=== PATIENT | male | born 1960 | race Caucasian/White ===

== ENCOUNTER → 2016-11-22 | Outpatient (CLI) | payer OTHER ==
[~2016-11-22] MED LIST: ACYC400T PO; ADVIN25/60 INH; ALBU18002 INH; ALBU1AER9 INH; APR25 PO; ASPI81TA28 PO; ATV/1 PO; B-COCAP20 PO; B-COCAP28 PO; B-COTAB18 PO; CALC667C4 PO; CARV25TA2 PO; CARV3.122 PO; CARV6.252 PO; CIPR1TAB11 PO; CLOP1TAB15 PO; CPR500 PO; CRG3125 PO; CRG625 PO; DOCU100T7 PO; FRS/40 PO; FURO-85 PO; GABA-113 PO; GLGKIT INJ; GUAISYP5 PO; INSPMPNVLG; ISOS120T5 PO; LACT10SO17 PO; LSX40 PO; MCRK20 PO; METR-163 PO; MULT-650 PO; NTRGSL/4 UT; NVLGI; ONDA4TAB46 PO; OXYC-57 PO; PANT40TA2 PO; PHS667 PO; PLV75 PO; POLY335019 PO; POTA20TA13 PO; ROPI1TAB PO; ROSU20TA PO; RQP/2 PO; SNG10 PO; TRAZ50TA35 PO; XPNINS125 NEB; ZLF/50 PO
--- NOTE | 2016-11-22 13:42 | DIAGNOSTIC IMAGING REPORT ---
RIGHT SHOULDER MIN 2 VIEWS ROUTINE CLINICAL HISTORY: Right shoulder pain. COMPARISON: None FINDINGS: Alignment of the right shoulder is anatomic. Deformity of the distal right clavicle with osteophytosis is unchanged. No acute fracture is identified on this exam. There is mild arthritis of the right glenohumeral joint. There are median sternotomy wires. IMPRESSION: 1. No acute fracture or dislocation of the right shoulder. 2. Chronic deformity of the distal right clavicle which could be post surgical, post traumatic or degenerative. 3. Mild arthritis of the right glenohumeral joint. Electronically signed by: Carmine Raymond M.D. 11/22/2016 1:41 PM Dictated Date/Time: 11/22/2016 1:39 PM
== END | disposition home or self-care (01) ==
LOC: C.RAD1850 12:46
PROVIDERS: ATTEND Family Medicine
DX: M25.511 Pain in right shoulder (principal); M95.8 Other specified acquired deformities of musculoskeletal system

== ENCOUNTER 2017-01-11 02:49 | Inpatient (IN) | payer OTHER ==
[2017-01-11] VITALS (7 sets, daily range): BP systolic 132–171; BP diastolic 52–71; PULSE 59–64; TEMP 36.9–37.2; O2SAT 94–96; Ht 162.6 cm; Wt 80.0 kg
[~2017-01-11] VITALS: Ht 162.6 cm; Wt 80.0 kg
[~2017-01-11 02:49] MED LIST changes: -ALBU18002 INH; -B-COCAP20 PO; -B-COTAB18 PO; -CALC667C4 PO; -CARV3.122 PO; -CARV6.252 PO; -CIPR1TAB11 PO; -CLOP1TAB15 PO; -CRG3125 PO; -CRG625 PO; -FRS/40 PO; -FURO-85 PO; -GABA-113 PO; -INSPMPNVLG; -LACT10SO17 PO; -MCRK20 PO; -METR-163 PO; -MULT-650 PO; -ONDA4TAB46 PO; -PHS667 PO; -POLY335019 PO; -ROPI1TAB PO; -ROSU20TA PO; -TRAZ50TA35 PO
[2017-01-11] MEDS ORDERED: ONDANSETRON INJ 2 MG/ML 2 ML VIAL IV STA (03:18)
[2017-01-11] MEDS ORDERED: SODIUM CHLORIDE 0.9% 500ML 500 ML IV STA (03:18)
[2017-01-11] MEDS ORDERED: HYDROmorphone INJ 1 MG/ML SYR IV STA ×2 (03:18→06:12)
[2017-01-11 03:30] LABS: BASO % 0.4 %; BASO ABS # 0.04 K/uL (0-0.2); COMPLETE YES; EOS % 2.1 %; HEMATOCRIT 44.4 % (42-52); IG% 0.3 %; LYMPH % 13.5 %; LYMPH ABS # 1.48 K/uL (1.2-3.4); MEAN CELL VOLUME 83.1 fL (80-100); MEAN CORPUSCULAR HEMOGLOBIN 28.5 pg (25-34); MEAN CORPUSCULAR HGB CONC 34.2 g/dl (32-36); MEAN PLATELET VOLUME 11.1 fL (7.4-10.4); MONO % 6.8 %; NEUT % 76.9 %; PLATELET COUNT 302 K/uL (130-400); RED BLOOD COUNT 5.34 M/uL (4.7-6.1); WHITE BLOOD COUNT 10.94 K/uL (4.8-10.8)
[2017-01-11 03:55] LABS: ALT/SGPT 50 U/L (12-78); AST/SGOT 25 U/L (15-37); BLOOD UREA NITROGEN 37 mg/dl (7-18); BUN/CREATININE RATIO 16.6 (10-20); CALCIUM 8.7 mg/dl (8.5-10.1); CARBON DIOXIDE 29 mmol/L (21-32); CHLORIDE 104 mmol/L (98-107); GLUCOSE 133 mg/dl (70-99); POTASSIUM 3.4 mmol/L (3.5-5.1); SODIUM 142 mmol/L (136-145)
[2017-01-11] MEDS ORDERED: ALBU18002 INH (03:55)
[2017-01-11] MEDS ORDERED: LACT10SO17 PO (03:55)
[2017-01-11] MEDS ORDERED: ONDA4TAB46 PO (03:55)
[2017-01-11] MEDS ORDERED: ROSU20TA PO (03:55)
[2017-01-11] MEDS ORDERED: POLY335019 PO (03:55)
[2017-01-11] MEDS ORDERED: ROPI1TAB PO ×2 (03:55)
[2017-01-11] MEDS ORDERED: MULT-650 PO (03:55)
[2017-01-11] MEDS ORDERED: FURO-85 PO (03:55)
[2017-01-11] MEDS ORDERED: INSPMPNVLG (03:55)
[2017-01-11] MEDS ORDERED: TRAZ50TA35 PO (03:55)
[2017-01-11 04:00] LABS: ALKALINE PHOSPHATASE 158 U/L (45-117)
[2017-01-11 05:08] LABS: URINE APPEARANCE CLEAR (CLEAR); URINE BILIRUBIN NEG (NEG); URINE COLOR YELLOW; URINE EPITHELIAL CELL AUTO 0-5 /lpf (0-5); URINE NITRITE NEG (NEG); URINE SPECIFIC GRAVITY 1.018 (1.000-1.030); UROBILINOGEN NEG (NEG); ZZUR CULT IF INDIC CLEAN CATCH NO
[2017-01-11 05:09] LABS: MANUAL MICROSCOPIC REQUIRED? NO; REVIEW REQ? NO
[2017-01-11] MEDS ORDERED: LORAZEPAM 2 MG/ML 1 ML VIAL IV STA (05:09)
[2017-01-11] MEDS ORDERED: NovoLOG INSULIN PUMP SCH (06:00)
[2017-01-11] MEDS ORDERED: HydrALAZINE HCL 20 MG/ML VIAL IV. PRN (06:00)
[2017-01-11] MEDS ORDERED: HYDROmorphone INJ 1 MG/ML SYR IV PRN (06:00)
[2017-01-11] MEDS ORDERED: LORAZEPAM 2 MG/ML 1 ML VIAL IV PRN (06:00)
[2017-01-11] MEDS ORDERED: LEVALBUTEROL 1.25MG/3ML NEB INH PRN (06:00)
--- NOTE | 2017-01-11 06:06 | EMERGENCY ROOM VISIT NOTE ---
History Report prepared by Rameshibflorentin: Priyank Gaspar Under the Supervision of: Dr. Vick San M.D. First contact with patient: 03:09 Chief Complaint: CHEST PAIN Stated Complaint: STOMACH PAINS, THROWING UP History of Present Illness The patient is a 56 year old male who presents to the Emergency Room with complaints of improving abdominal pain beginning 3 hours ago. He woke up with his pain. He also complains of chest pain and vomiting. Per nursing staff, the patient's pain began in his abdomen and moved up into his chest. The patient states that he felt very nauseous prior to falling asleep. He states that vomiting improved his pain. He describes his abdominal pain as a feeling of "soreness", and currently has no chest pain. The patient has a history of multiple heart attacks, but states that his chest pain tonight felt very different. He is on Plavix. He has a history of a cholecystectomy, appendectomy , and a hernia repair. The patient had a double bypass surgery 11 years ago. He is on peritoneal dialysis. The patient denies any urinary symptoms, or diarrhea. Source of History: patient Onset: 3 hours ago Position: abdomen Quality: other ("Soreness") Timing: other (improving) Associated Symptoms: + chest pain, + nausea, + vomiting, No diarrhea, No urinary symptoms Review of Systems See HPI for pertinent positives & negatives. A total of 10 systems reviewed and were otherwise negative. Past Medical & Surgical Medical Problems: (1) Acute renal failure syndrome (2) Asthma (3) Benign hypertension (4) Cholecystectomy (5) Chronic obstructive lung disease (6) Coronary artery bypass grafting (7) Diabetes mellitus (8) End stage renal failure on dialysis (9) Heart disease (10) Hepatitis (11) Intermitent atrial fibrillation (12) Myocardial infarction (13) Obstructive sleep apnea syndrome (14) Peritoneal dialysis status (15) Peritonitis associated with peritoneal dialysis (16) Pneumonia (17) Secondary hyperparathyroidism of renal origin Family History Hypertension Kidney disease Social History Smoking Status: Never Smoker Alcohol Use: none Drug Use: none Marital Status: Housing Status: lives with family Occupation Status: disabled Current/Historical Medications Scheduled Acyclovir (Acyclovir), 400 MG PO BID Albuterol Sulfate (Proair Respiclick), 2 PUFFS INH QAM Aspirin (Aspirin Ec), 81 MG PO QPM Carvedilol (Coreg), 25 MG PO AMPM Clopidogrel Bisulfate (Clopidogrel), 75 MG PO QAM Fluticasone Prop/Salmeterol (Advair Diskus 250/50 60 Dose), 1 PUFF INH Q12 Furosemide (Lasix), 20 MG PO QAM Hydralazine Hcl (Apresoline), 25 MG PO TID Insulin Aspart (novoLOG INSULIN PUMP ), 1 EA N/A UD Isosorbide Mononitrate Ext Rel (Imdur Ext Rel), 120 MG PO QAM Montelukast Sod (Montelukast Sodium), 10 MG PO QPM Multiple Vitamins W/ Minerals (Prorenal Qd), 1 CAP PO QAM Oxycodone/Acetaminophen 5MG/325MG (Percocet 5MG/325MG), 1 TABLET PO HS Pantoprazole (Pantoprazole Sodium), 40 MG PO QAM Polyethylene Glycol 3350 (Miralax), 17 GM PO QAM Ropinirole (Requip), 2 MG PO QPM Ropinirole Hydrochloride (Requip), 1 MG PO QAM Rosuvastatin Calcium (Crestor), 20 MG PO DAILY Sertraline HCl (Sertraline HCl), 50 MG PO QPM Scheduled PRN Glucagon (Glucagon Emergency Kit), 1 DOSE INJ UD PRN for HYPOGLYCEMIA Guaifenesin-Codeine (Robitussin-Ac Syrup), 10 ML PO QID PRN for Cough and Congestion Lactulose (Chronulac), 1 DOSE PO DIRECTED PRN for Constipation Levalbuterol (Levalbuterol HCl), 1 VIAL NEB TID PRN for COPD Lorazepam (Ativan), 0.5-1 MG PO BID PRN for Anxiety Nitroglycerin (Nitrostat), 0.4 MG UT UD PRN for Chest Pain Ondansetron Hcl (Zofran), 4 MG PO Q6H PRN for Nausea Trazodone Hcl (Trazodone), 50 MG PO HS PRN for Sleep Allergies Coded Allergies: Penicillins (Verified Allergy, Severe, HIVES, 01/11/17) BEE STING (Verified Allergy, Intermediate, SWELLING, 01/11/17) DOES NOT REQUIRE EPIPEN PER FAMILY Physical Exam Vital Signs Date Time Temp Pulse Resp B/P Pulse Ox O2 Delivery O2 Flow Rate FiO2 01/11/17 04:56 36.9 57 20 162/69 96 Room Air 01/11/17 03:47 68 16 171/82 98 Room Air 01/11/17 03:13 58 01/11/17 03:12 64 20 202/82 100 Room Air Physical Exam GENERAL: Patient is chronically un-well appearing and moderate distress. HEENT: No acute trauma, normocephalic atraumatic, mucous membranes moist, no nasal congestion, no scleral icterus. NECK: No stridor, no adenopathy, no meningismus, trachea is midline. LUNGS: No dyspnea. Clear to auscultation and equal bilaterally. No wheeze, no rhonchi. HEART: Regular rate and rhythm. No murmurs, rubs, gallops appreciated. ABDOMEN: Ventral hernia just to right of lower midline incision scar. Firm though minimal TTP. Vague epigastric tenderness to palpation. Hyperactive epigastric bowel sounds otherwise minimal. Rest of abdomen soft, no peritonitis. BACK: No midline tenderness, no CVA tenderness EXTREMITIES: Normal motion all extremities, no cyanosis, no edema. NEUROLOGIC: Alert and oriented, no acute motor or sensory deficits, no focal weakness, cranial nerves grossly intact. SKIN: No rash, no jaundice, no diaphoresis. Dialysis fistula in the left forearm. Extensive scarring over the abdomen and chest from previous surgeries. Medical Decision & Procedures ER Provider Diagnostic Interpretation: CT results per statrad and my review. CT ABDOMEN & PELVIS: Prior from 05/28/16. Small ventral hernia below the level of the umbilicus containing a dilated fluid-filled small bowel loop which results in proximal obstruction. Distal loops are collapsed. Colonic diverticulosis. As on the prior , there is an intraperitoneal catheter with the distal part in the right lower quadrant. Likely dialysis catheter. Moderate fluid within the abdomen and pelvis. No free air. Small hiatal hernia. Cholecystectomy. Small nonobstructing renal calculi. Vascular calcifications of the aorta and branches. X ray results are stated below per my interpretation: Chest: 1 view: No infiltrate, no effusion, normal cardiac border. Mildly enlarged heart. Laboratory Results 01/11/17 03:15 Red Blood Count 5.34, Mean Corpuscular Volume 83.1, Mean Corpuscular Hemoglobin 28.5, Mean Corpuscular Hemoglobin Concent 34.2, Mean Platelet Volume 11.1, Neutrophils (%) (Auto) 76.9, Lymphocytes (%) (Auto) 13.5, Monocytes (%) (Auto) 6.8, Eosinophils (%) (Auto) 2.1, Basophils (%) (Auto) 0.4, Neutrophils # (Auto) 8.42, Lymphocytes # (Auto) 1.48, Monocytes # (Auto) 0.74, Eosinophils # (Auto) 0.23, Basophils # (Auto) 0.04 01/11/17 03:15 Test 01/11/17 03:15 01/11/17 04:55 White Blood Count 10.94 K/uL (4.8-10.8) Red Blood Count 5.34 M/uL (4.7-6.1) Hemoglobin 15.2 g/dL (14.0-18.0) Hematocrit 44.4 % (42-52) Mean Corpuscular Volume 83.1 fL (80-100) Mean Corpuscular Hemoglobin 28.5 pg (25-34) Mean Corpuscular Hemoglobin Concent 34.2 g/dl (32-36) Platelet Count 302 K/uL (130-400) Mean Platelet Volume 11.1 fL (7.4-10.4) Neutrophils (%) (Auto) 76.9 % Lymphocytes (%) (Auto) 13.5 % Monocytes (%) (Auto) 6.8 % Eosinophils (%) (Auto) 2.1 % Basophils (%) (Auto) 0.4 % Neutrophils # (Auto) 8.42 K/uL (1.4-6.5) Lymphocytes # (Auto) 1.48 K/uL (1.2-3.4) Monocytes # (Auto) 0.74 K/uL (0.11-0.59) Eosinophils # (Auto) 0.23 K/uL (0-0.5) Basophils # (Auto) 0.04 K/uL (0-0.2) RDW Standard Deviation 39.2 fL (36.4-46.3) RDW Coefficient of Variation 13.0 % (11.5-14.5) Immature Granulocyte % (Auto) 0.3 % Immature Granulocyte # (Auto) 0.03 K/uL (0.00-0.02) Anion Gap 9.0 mmol/L (3-11) Estimated GFR () 37.7 Estimated GFR (Non- 32.5 BUN/Creatinine Ratio 16.6 (10-20) Calcium Level 8.7 mg/dl (8.5-10.1) Total Bilirubin 0.5 mg/dl (0.2-1) Direct Bilirubin 0.1 mg/dl (0-0.2) Aspartate Amino Transf (AST/SGOT) 25 U/L (15-37) Alanine Aminotransferase (ALT/SGPT) 50 U/L (12-78) Alkaline Phosphatase 158 U/L (45-117) Troponin I 0.023 ng/ml (0-0.045) Total Protein 7.1 gm/dl (6.4-8.2) Albumin 3.7 gm/dl (3.4-5.0) Lipase 150 U/L (73-393) Urine Color YELLOW Urine Appearance CLEAR (CLEAR) Urine pH 5.0 (4.5-7.5) Urine Specific [place] 1.018 (1.000-1.030) Urine Protein 2+ (NEG) Urine Glucose (UA) 2+ (NEG) Urine Ketones NEG (NEG) Urine Occult Blood NEG (NEG) Urine Nitrite NEG (NEG) Urine Bilirubin NEG (NEG) Urine Urobilinogen NEG (NEG) Urine Leukocyte Esterase NEG (NEG) Urine WBC (Auto) 1-5 /hpf (0-5) Urine RBC (Auto) 0-4 /hpf (0-4) Urine Hyaline Casts (Auto) 1-5 /lpf (0-5) Urine Epithelial Cells (Auto) 0-5 /lpf (0-5) Urine Bacteria (Auto) NEG (NEG) Laboratory results as reviewed by me. Medications Administered Medications (Trade) Dose Ordered Sig/Shasha Route Start Time Stop Time Status Last Admin Dose Admin Hydromorphone HCl (Dilaudid Inj) 1 mg NOW STAT IV 01/11/17 03:18 01/11/17 03:21 DC 01/11/17 03:28 1 MG Ondansetron HCl 4 mg 4 mg NOW STAT IV 01/11/17 03:18 01/11/17 03:21 DC 01/11/17 03:28 4 MG Sodium Chloride (Nss 500ml) 500 ml @ 999 mls/hr Q31M STAT IV 01/11/17 03:18 01/11/17 03:48 DC 01/11/17 03:27 999 MLS/HR Lorazepam (Ativan Inj) 1 mg NOW STAT IV 01/11/17 05:09 01/11/17 05:11 DC 01/11/17 05:19 1 MG ECG Indication: chest pain Rate (beats per minute): 58 Rhythm: sinus bradycardia Findings: no acute ischemic change, no ectopy Comparison ECG Date: May 28, 2016 Change: no significant change ED Course 0313: The patient was evaluated in room A10. A complete history and physical exam was performed. 0318: Ordered Sodium Chloride 500 ml @ 999 mls/hr, Zofran Inj 4 mg IV, Dilaudid Inj 1 mg IV. 0400: I reassessed the patient. He states that the pain medication has helped, but he still feels somewhat nauseous. He notes that his pain is present in waves. 0509: I checked in on the patient. He feels better, and is not in significant pain. I attempted to reduce his hernia unsuccessfully. Ordered Ativan Inj 1 mg IV. 0545: Upon reevaluation, the patient is resting comfortably. Discussed results and treatment plan with the patient. He verbalized understanding and agreement with the treatment plan. The patient will be evaluated for further management. Medical Decision Differential: Cholecystitis, Gallbladder disfunction, Hepatic Disfunction, Gastritis/PUD, Pancreatitis, ACS, Aortic Pathology, dialysate infection, amongst other pathologies entertained. 56 yr old male with waves of nausea/vomiting and abdominal pain. Relieved on arrival with vomiting though pain started increasing. Noted CP right before he vomiting which was brief, unlike previous AL and resolved shortly there after. EKG wnl and trop OK initially. With symptoms sent for CT (w/o con given renal issues) which reveals bowel obstruction. Nausea returning but improved with ativan/ng tube. Unable to reduce ventral hernia. Exam is not consistent with ischemic bowel at this time. Labs no consistent with infection nor peritoneal dialysate infection. Will bring in for further work-up and evaluation. Consults Time Called: 05 Consulting Physician[facility] [place] Call: [phone] Discussed the patient's case. The patient will be evaluated for further treatment and disposition. Impression Primary Impression: SBO (small bowel obstruction) Additional Impression: Ventral hernia Scribe Attestation The scribe's documentation has been prepared under my direction and personally reviewed by me in its entirety. I confirm that the note above accurately reflects all work, treatment, procedures, and medical decision making performed by me. Departure Information Dispostion Being Evaluated By Hospitalist Referrals Arielle Whittaker MD (PCP) Patient Instructions My [facility] Problem Qualifiers Additional Impression: Ventral hernia Obstruction and gangrene presence: with obstruction but without gangrene Qualified Codes: K43.6 - Other and unspecified ventral hernia with obstruction , without gangrene
--- NOTE | 2017-01-11 06:12 | History and Physical ---
History & Physical Date & Time of Service: January 11, 2017 at 06:09 Chief Complaint: Stomach Pains, Throwing Up Primary Care Physician: Arielle Whittaker MD History of Present Illness Source: patient 56 y/o M Hx CAD, systolic CHF, ESRD - peritoneal dialysis w/history of peritonitis. Pt presents with acute onset of abdominal pain, nausea and vomiting. A CT abdomen was obtained in the ER revealing an SBO resulting from an incarcerated ventral hernia. The pt had also c/o CP although this was more epigastric in nature and likely related to his current obstruction. He was initially comfortable in the ER following administration of narcotics however after a few hours his pain returned and became more intense. He denies fever or SOB. He was in his normal state of health one day prior and completing his dialysis this AM when the pain began. Past Medical/Surgical History Medical Problems: (1) Acute renal failure syndrome Status: Resolved (2) Asthma Status: Chronic (3) Benign hypertension Status: Chronic (4) Cholecystectomy Status: Resolved (5) Chronic obstructive lung disease Status: Chronic (6) Coronary artery bypass grafting Status: Resolved (7) Diabetes mellitus Status: Chronic (8) End stage renal failure on dialysis Status: Chronic (9) Heart disease Status: Chronic (10) Myocardial infarction Status: Chronic (11) Obstructive sleep apnea syndrome Status: Chronic (12) Peritoneal dialysis status Status: Chronic (13) Pneumonia Status: Chronic 14) Peritonitis - required revision of dialysis entry point as a result Family History Hypertension Kidney disease Social History Smoking Status: Never Smoker Drug Use: none Marital Status: Housing status: lives with family Occupational Status: disabled Immunizations History of Influenza Vaccine: Yes Influenza Vaccine Date: May 10, 2012 History of Tetanus Vaccine?: Yes Tetanus Immunization Date: May 08, 2006 History of Pneumococcal: Yes Pneumococcal Date: May 10, 2006 History of Hepatitis B Vaccine: Yes Multi-Drug Resistant Organisms History of MDRO: No Allergies Coded Allergies: Penicillins (Verified Allergy, Severe, HIVES, 01/11/17) BEE STING (Verified Allergy, Intermediate, SWELLING, 01/11/17) DOES NOT REQUIRE EPIPEN PER FAMILY Home Medications Scheduled Acyclovir (Acyclovir), 400 MG PO BID Albuterol Sulfate (Proair Respiclick), 2 PUFFS INH QAM Aspirin (Aspirin Ec), 81 MG PO QPM Carvedilol (Coreg), 25 MG PO AMPM Clopidogrel Bisulfate (Clopidogrel), 75 MG PO QAM Fluticasone Prop/Salmeterol (Advair Diskus 250/50 60 Dose), 1 PUFF INH Q12 Furosemide (Lasix), 20 MG PO QAM Hydralazine Hcl (Apresoline), 25 MG PO TID Insulin Aspart (novoLOG INSULIN PUMP ), 1 EA N/A UD Isosorbide Mononitrate Ext Rel (Imdur Ext Rel), 120 MG PO QAM Montelukast Sod (Montelukast Sodium), 10 MG PO QPM Multiple Vitamins W/ Minerals (Prorenal Qd), 1 CAP PO QAM Oxycodone/Acetaminophen 5MG/325MG (Percocet 5MG/325MG), 1 TABLET PO HS Pantoprazole (Pantoprazole Sodium), 40 MG PO QAM Polyethylene Glycol 3350 (Miralax), 17 GM PO QAM Ropinirole (Requip), 2 MG PO QPM Ropinirole Hydrochloride (Requip), 1 MG PO QAM Rosuvastatin Calcium (Crestor), 20 MG PO DAILY Sertraline HCl (Sertraline HCl), 50 MG PO QPM Scheduled PRN Glucagon (Glucagon Emergency Kit), 1 DOSE INJ UD PRN for HYPOGLYCEMIA Guaifenesin-Codeine (Robitussin-Ac Syrup), 10 ML PO QID PRN for Cough and Congestion Lactulose (Chronulac), 1 DOSE PO DIRECTED PRN for Constipation Levalbuterol (Levalbuterol HCl), 1 VIAL NEB TID PRN for COPD Lorazepam (Ativan), 0.5-1 MG PO BID PRN for Anxiety Nitroglycerin (Nitrostat), 0.4 MG UT UD PRN for Chest Pain Ondansetron Hcl (Zofran), 4 MG PO Q6H PRN for Nausea Trazodone Hcl (Trazodone), 50 MG PO HS PRN for Sleep Physical Exam Vital Signs Date Time Temp Pulse Resp B/P Pulse Ox O2 Delivery O2 Flow Rate FiO2 01/11/17 04:56 36.9 57 20 162/69 96 Room Air 01/11/17 03:47 68 16 171/82 98 Room Air 01/11/17 03:13 58 01/11/17 03:12 64 20 202/82 100 Room Air General Appearance: WD/WN, + moderate distress Head: normocephalic, atraumatic Eyes: normal inspection, PERRL, EOMI ENT: normal ENT inspection, hearing grossly normal, pharynx normal Neck: supple, no JVD Respiratory/Chest: chest non-tender, lungs clear, normal breath sounds, no respiratory distress, no accessory muscle use Cardiovascular: regular rate, rhythm, no edema, no gallop, no JVD, no murmur, normal peripheral pulses Abdomen/GI: + tenderness, + abnormal bowel sounds, + distended, + guarding, + pertinent finding (Palpable cenral hernia - distended abdomen which is very tender to palpation) Back: normal inspection, normal range of motion Extremities/Musculoskelatal: normal inspection, no calf tenderness, normal capillary refill, no pedal edema, normal range of motion Neurologic/Psych: spray unit feeder II-XII nml as tested, no motor/sensory deficits, alert, normal mood/affect, normal reflexes, oriented x 3 Skin: normal color, warm/dry, no rash Diagnostics Laboratory Results Results Past 24 Hours Test 01/11/17 03:15 01/11/17 04:55 Range/Units White Blood Count 10.94 4.8-10.8 K/uL Red Blood Count 5.34 4.7-6.1 M/uL Hemoglobin 15.2 14.0-18.0 g/dL Hematocrit 44.4 42-52 % Mean Corpuscular Volume 83.1 80-100 fL Mean Corpuscular Hemoglobin 28.5 25-34 pg Mean Corpuscular Hemoglobin Concent 34.2 32-36 g/dl Platelet Count 302 130-400 K/uL Mean Platelet Volume 11.1 7.4-10.4 fL Neutrophils (%) (Auto) 76.9 % Lymphocytes (%) (Auto) 13.5 % Monocytes (%) (Auto) 6.8 % Eosinophils (%) (Auto) 2.1 % Basophils (%) (Auto) 0.4 % Neutrophils # (Auto) 8.42 1.4-6.5 K/uL Lymphocytes # (Auto) 1.48 1.2-3.4 K/uL Monocytes # (Auto) 0.74 0.11-0.59 K/uL Eosinophils # (Auto) 0.23 0-0.5 K/uL Basophils # (Auto) 0.04 0-0.2 K/uL RDW Standard Deviation 39.2 36.4-46.3 fL RDW Coefficient of Variation 13.0 11.5-14.5 % Immature Granulocyte % (Auto) 0.3 % Immature Granulocyte # (Auto) 0.03 0.00-0.02 K/uL Sodium Level 142 136-145 mmol/L Potassium Level 3.4 3.5-5.1 mmol/L Chloride Level 104 98-107 mmol/L Carbon Dioxide Level 29 21-32 mmol/L Anion Gap 9.0 3-11 mmol/L Blood Urea Nitrogen 37 7-18 mg/dl Creatinine 2.20 0.60-1.40 mg/dl Estimated GFR () 37.7 Estimated GFR (Non- 32.5 BUN/Creatinine Ratio 16.6 10-20 Random Glucose 133 70-99 mg/dl Calcium Level 8.7 8.5-10.1 mg/dl Total Bilirubin 0.5 0.2-1 mg/dl Direct Bilirubin 0.1 0-0.2 mg/dl Aspartate Amino Transf (AST/SGOT) 25 15-37 U/L Alanine Aminotransferase (ALT/SGPT) 50 12-78 U/L Alkaline Phosphatase 158 45-117 U/L Troponin I 0.023 0-0.045 ng/ml Total Protein 7.1 6.4-8.2 gm/dl Albumin 3.7 3.4-5.0 gm/dl Lipase 150 73-393 U/L Urine Color YELLOW Urine Appearance CLEAR CLEAR Urine pH 5.0 4.5-7.5 Urine Specific [place] 1.018 1.000-1.030 Urine Protein 2+ NEG Urine Glucose (UA) 2+ NEG Urine Ketones NEG NEG Urine Occult Blood NEG NEG Urine Nitrite NEG NEG Urine Bilirubin NEG NEG Urine Urobilinogen NEG NEG Urine Leukocyte Esterase NEG NEG Urine WBC (Auto) 1-5 0-5 /hpf Urine RBC (Auto) 0-4 0-4 /hpf Urine Hyaline Casts (Auto) 1-5 0-5 /lpf Urine Epithelial Cells (Auto) 0-5 0-5 /lpf Urine Bacteria (Auto) NEG NEG Diagnostic Radiology Small ventral hernia below the level of the umbilicus containing a dilated fluid-filled small bowel loop which results in proximal obstruction. EKG Sinus, IVCD, evidence of previous ant infarct - no significant change from previous Impression Assessment and Plan 56 y/o M Hx CAD, systolic CHF, ESRD - peritoneal dialysis w/history of peritonitis. Pt presents with acute onset of abdominal pain, nausea and vomiting. A CT abdomen was obtained in the ER revealing an SBO resulting from an incarcerated ventral hernia. The pt had also c/o CP although this was more epigastric in nature and likely related to his current obstruction. He was initially comfortable in the ER following administration of narcotics however after a few hours his pain returned and became more intense. He denies fever or SOB. He was in his normal state of health one day prior and completing his dialysis this AM when the pain began. 1) SBO - surgery consulted and notified in ER. NGT placed and pt assigned to telemetry - he is high risk for surgery and unless intervention is urgent we would consider a pre-op cardiology consult. Pts RCRI is 11%. 2) CAD - he did complain of CP although this appears to be more epigastric and related to his current SBO - serial troponins are ordered and he will be admitted to telemetry 3) ESRD - Pts vat packer is consulted for inpt dialysis - electrolytes are currently acceptable 4) CHF - pt is relatively euvolemic - has a low EF of 25% on record which was considered when calculating his RCRI - we will continue a B claudia in IV form while he is NPO 5) HTN - IV Hydralazine and Metoprolol ordered with parameters - Nitrodur daily ordered Full code - SCDs pending surgery evaluation Total time for this admit including review of labs, meds, EKG - discussion with pt and ER attending 43 min Level of Care Telemetry Resuscitation Status FULL RESUSCITATION VTE Prophylaxis Given or contraindicated: SCD's
[2017-01-11] MEDS ORDERED: INSULIN ASPART 100 UNITS/ML 3 ML PEN SC SCH (06:30)
[2017-01-11] MEDS ORDERED: ONDANSETRON INJ 2 MG/ML 2 ML VIAL IV PRN (06:30)
[2017-01-11 06:43] LABS: INR 0.9 (0.9-1.1); PARTIAL THROMBOPLASTIN RATIO 0.9; PROTHROMBIN TIME (PATIENT) 9.8 SECONDS (9.0-12.0)
--- NOTE | 2017-01-11 07:00 | DIAGNOSTIC IMAGING REPORT ---
CHEST ONE VIEW PORTABLE CLINICAL HISTORY: repetitive vomiting, epigastric pain COMPARISON STUDY: 2015 FINDINGS: Mild stable cardiomegaly. Prior median sternotomy. Diaphragms smooth. IMPRESSION: No acute process. Chronic and postoperative change. Electronically signed by: Jean Marie Rodgers M.D. 01/11/2017 6:59 AM Dictated Date/Time: 01/11/2017 6:58 AM
--- NOTE | 2017-01-11 07:51 | DIAGNOSTIC IMAGING REPORT ---
CT SCAN OF THE ABDOMEN AND PELVIS WITHOUT IV CONTRAST CLINICAL HISTORY: Vomiting. Epigastric abdominal pain. COMPARISON STUDY: Abdominal CT dated 05/28/2016. TECHNIQUE: CT scan of the abdomen and pelvis is performed from the lung bases to the proximal femora. Images are reviewed in the axial, sagittal, and coronal planes. IV contrast was not administered for this examination as per the referring clinician. Note that the examination was performed and significantly suboptimal fashion without oral and IV contrast. Automated dose control exposure was utilized. CT DOSE: 1068.92 mGy.cm FINDINGS: Lung bases: The patient is status post midline sternotomy. The heart is enlarged and without pericardial effusion. There are coronary artery calcifications. Diminished attenuation of the cardiac blood pool as compared to the myocardium suggesting anemia. A tiny hiatal hernia is noted. The lung bases are clear. Liver: The unenhanced liver is normal in size, contour, and attenuation. There is central intrahepatic biliary ductal dilatation. Gallbladder: Surgically absent noting clips in the gallbladder fossa. Spleen: Normal in size and attenuation. There are scattered calcified splenic granulomas. Pancreas: The unenhanced pancreas is moderately atrophic and grossly unremarkable.. Adrenal glands: Unremarkable. Kidneys: The unenhanced kidneys demonstrate cortical atrophy and are without hydronephrosis. There are numerous renovascular calcifications. Tiny bilateral nonobstructing renal calculi are observed. There is no evidence of contour deforming renal mass lesion. Abdominal vasculature: The abdominal aorta is normal in course and caliber noting moderate to advanced atherosclerotic calcification. Bowel: There is a hernia in the ventral pelvis seen image #306 which contains a loop of small bowel as well as ascitic fluid. The small bowel upstream to this hernia is distended, fecal lies, and fluid-filled measuring up to 3.0 cm. This is consistent with a bowel obstruction. There is mild colonic diverticulosis without CT evidence of acute diverticulitis. Mild colonic fecal retention is observed. The appendix is not identified and reported surgically absent. Peritoneum: A peritoneal catheter is present from an epigastric approach. The tip is coiled in the right lower quadrant. There is a small to moderate volume of abdominopelvic ascites. There are numerous tiny foci of intraperitoneal free air. This is nonspecific given the presence of an intraperitoneal catheter. There is an ascitic fluid and bowel containing ventral hernia in the midline pelvis seen on axial image #305. Is further discussed above. There is a small and fluid containing umbilical hernia. Lymphadenopathy: None. Pelvic viscera: The prostate gland is mildly enlarged. The bladder wall appears mildly thickened and trabeculated suggesting the sequelae of chronic outlet obstruction. There is calcification of the penile tunica suggesting Peyronie's disease. Skeletal structures: No lytic or blastic lesions are seen. There is mild lumbosacral spondylosis. IMPRESSION: 1. Suboptimal examination without oral and IV contrast. 2. Findings are consistent with a small bowel obstruction secondary to an incarcerated loop of small bowel within a ventral pelvic hernia. 3. There is a small to moderate volume of abdominopelvic ascites. 4. An intraperitoneal catheter is coiled in the right lower quadrant. Numerous tiny foci of intraperitoneal free air are nonspecific and likely related to the presence of an indwelling catheter. Clinical correlation will be required. 5. Tiny nonobstructing bilateral renal calculi. 6. Cardiomegaly and hiatal hernia. 7. Mild colonic diverticulosis without CT evidence of acute diverticulitis. 8. Additional findings as above. Electronically signed by: Richi Villa M.D. 01/11/2017 7:50 AM Dictated Date/Time: 01/11/2017 7:41 AM
[2017-01-11] MEDS ORDERED: GLUCOSE 40% GEL 15 GM TUBE PO PRN (08:00)
[2017-01-11] MEDS ORDERED: DEXTROSE 50% 50 ML SYR IV PRN (08:00)
[2017-01-11] MEDS: METOPROLOL TARTRATE 1 MG/ML VIAL IV. SCH ×3 (08:00→16:53)
[2017-01-11] MEDS ORDERED: LORAZEPAM INJ 1 MG in SYRINGE 0.5 ML IV PRN (08:00)
[2017-01-11] MEDS ORDERED: GLUCOSE 10 TABS/TUBE PO PRN (08:00)
[2017-01-11] MEDS ORDERED: GLUCAGON FOR INJ 1 MG VIAL SQ PRN (08:00)
[2017-01-11] MEDS ORDERED: FLUTICASONE/SALMETEROL 250/50 (ADVAIR) 14 PUFF/1 INHALER INH SCH (09:00)
[2017-01-11] MEDS ORDERED: NITROGLYCERIN 0.4 MG/HR PATCH TD SCH (09:00)
[2017-01-11] MEDS ORDERED: HydrALAZINE HCL 20 MG/ML VIAL IV. ONE (09:15)
--- NOTE | 2017-01-11 09:15 | CARDIOLOGY CONSULTATION ---
DATE OF CONSULTATION: 01/11/2017 CONSULTATION REQUESTED BY: Dr. Epps. REASON FOR CONSULTATION: Preop risk assessment. HISTORY OF PRESENT ILLNESS: Mr. Caro is a very pleasant 56-year-old gentleman, who normally follows with Charis Vizcarra PA-C and Dr. Robledo of our cardiology practice. He presented to [facility] [address] early in the a.m. of January 11 with a complaint of acute onset of abdominal pain, nausea, and vomiting. In the Emergency Department, he was found to have a small bowel obstruction along with a hernia through his peritoneal dialysis catheter insertion site that was incarcerated. He was seen by surgery; however, given his complex cardiac history, cardiology was asked to evaluate the patient. Currently, the patient states that he is with continued pain at the hernia site. Otherwise, he has not had any cardiac complaints as of late and denies experiencing any chest pain, shortness of breath, palpitations, lightheadedness, dizziness, or syncope. Over the last several weeks to months, he has been compliant with his medications. PAST SURGICAL HISTORY: 1. Coronary artery bypass grafting surgery in 2005 with a HDZ to the LAD and vein graft to the left circumflex with poor surgical targets and incomplete revascularization. 2. Shoulder surgery. 3. Carpal tunnel surgery. 4. Laparoscopic cholecystectomy. 5. Vasectomy. 6. Cataract surgery. 7. Peritoneal dialysis catheter placement. MEDICAL ILLNESSES: 1. Diabetic atherosclerotic coronary artery disease, status post incomplete revascularization. 2. Stable stage II-III angina. 3. Severe asthmatic lung disease. 4. Type 1 diabetes. 5. End-stage renal disease, on peritoneal dialysis. 6. Paroxysmal atrial fibrillation. FAMILY HISTORY: Noncontributory. SOCIAL HISTORY: The patient is a former smoker, quit in 2005. Denies alcohol or recreational drug use. REVIEW OF SYSTEMS: As per HPI, all other review of systems reviewed and negative at this time. ALLERGIES: PENICILLIN. MEDICATIONS AN OUTPATIENT: 1. Aspirin 81 mg daily. 2. Plavix 75 mg daily. 3. Coreg 25 mg b.i.d. 4. Insulin pump. 5. Imdur 120 mg daily. 6. Hydralazine 25 mg 3 times a day. 7. Crestor 20 mg daily. 8. Protonix daily. 9. Requip 2 mg b.i.d. 10. Advair b.i.d. 11. Lasix 20 mg daily. PHYSICAL EXAMINATION: VITALS: Temperature 36.9, pulse 58, respiratory rate 12, and blood pressure 180/100. GENERAL: Awake, alert, and oriented x3. Mild distress secondary to abdominal discomfort. HEENT: Normocephalic and atraumatic. Pupils equal, round, and reactive to light and accommodation. Extraocular muscles intact. Anicteric sclerae. Moist mucous membranes. NECK: No JVD and no bruit. CARDIOVASCULAR: Regular, but distant. I do not appreciate any murmurs, rubs or gallops. PULMONARY: Clear air movement bilaterally. No rales, rhonchi, or wheezing. ABDOMEN: Bowel sounds x4. Diffuse tenderness. Slight guarding. EXTREMITIES: No clubbing, cyanosis or edema. +2 pedal pulses bilaterally. SKIN: Warm and dry. TEST RESULTS: 2D echocardiogram performed on 09/30/2014 was read as there is a large-sized apical, septal, anterior septal, inferior and posterior wall motion abnormality with hypokinesis to akinesis of the segments. EF 30%-35%, moderate left atrial dilatation, mild aortic valve sclerosis without stenosis, mild mitral regurgitation, and grade 2 diastolic dysfunction. No significant change compared to previous study of 2013. IMPRESSION: 1. Preoperative risk assessment prior to undergoing hernia repair. 2. Complex coronary artery disease, status post incomplete revascularization in 2005. 3. Advanced diabetic disease. 4. End-stage renal disease. 5. Hypertension. RECOMMENDATIONS: It was my pleasure to see Mr. Caro consultation today. Given the patient's comorbidities, specifically the fact that he has a complex coronary artery disease that has been incompletely revascularized due to poor targets over 10 years ago, I believe the risk of proceeding at this juncture would be too high. After extensive discussion with Dr. Epps, it was agreed that the patient will benefit from transfer to tertiary care center for possible higher level of cardiac care postoperatively. This was discussed with the patient and his family. They are all in agreement and this will be arranged. In the meantime, he has been made n.p.o. Ideally, his beta claudia should be continued uninterrupted; however, he is rather bradycardic at this point. So, IV Lopressor will be given with holding parameters. Otherwise, I will restart IV hydralazine at this time for blood pressure control.
[2017-01-11] MEDS ORDERED: NURSING VERBAL MED ORDER ONE (09:30)
[2017-01-11] MEDS ORDERED: HYDROmorphone INJ 0.5 MG/0.5 ML SYR ONE (09:34)
--- NOTE | 2017-01-11 10:26 | Discharge Summary ---
Discharge Summary Date of Service January 11, 2017. Discharge Summary Admission Date: January 11, 2017 at 06:25 Discharge Date: January 11, 2017 Discharge Disposition: Acute care facility ([facility]) Principal Diagnosis: incarcerated ventral hernia with resulting SBO Problems/Secondary Diagnoses: 1. ESRD on PD 2. T1DM on insulin pump 3. chronic systolic CHF, EF 30-35% 4. CAD s/p CABG with incomplete revascularization 5. asthma 6. former tobacco dependence - quit 2005 7. hyperlipidemia 8. chronic pain syndrome 9. h/o paroxysmal a. fib - not on anticoagulation Immunizations: Have You Had Influenza Vaccine: Yes Influenza Vaccine Date: May 10, 2012 History of Tetanus Vaccine?: Yes Tetanus Immunization Date: May 08, 2006 History of Pneumococcal: Yes Pneumococcal Date: May 10, 2006 History of Hepatitis B Vaccine: Yes Procedures: CT abd/pelvis - IMPRESSION: 1. Suboptimal examination without oral and IV contrast. 2. Findings are consistent with a small bowel obstruction secondary to an incarcerated loop of small bowel within a ventral pelvic hernia. 3. There is a small to moderate volume of abdominopelvic ascites. 4. An intraperitoneal catheter is coiled in the right lower quadrant. Numerous tiny foci of intraperitoneal free air are nonspecific and likely related to the presence of an indwelling catheter. Clinical correlation will be required. 5. Tiny nonobstructing bilateral renal calculi. 6. Cardiomegaly and hiatal hernia. 7. Mild colonic diverticulosis without CT evidence of acute diverticulitis. Consultations: general surgery - Jean Marie Epps MD cardiology - Merrill Paz, DO Discharge Exam Physical Exam: General Appearance: no apparent distress, + pertinent finding (looks older than stated age, uncomfortable) ENT: + pertinent finding (MM dry; NG tube in place) Neck: no JVD Respiratory/Chest: no respiratory distress, no accessory muscle use, + pertinent finding (course BS b/l) Cardiovascular: regular rate, rhythm, no gallop, normal peripheral pulses, + systolic murmur (1/6 BLAKE LSB) Abdomen / GI: + tenderness (diffuse), + distended, + pertinent finding (PD catheter in place; multiple surgical scars including large midline vertical scar ) Extremities: no pedal edema Neurologic/Psychiatric: alert, oriented x 3 Hospital Course HISTORY OF PRESENT ILLNESS: 56yo male with h/o CAD s/p CABG, chronic systolic CHF with EF 30-35%, T1DM on insulin pump, ESRD on home peritoneal dialysis w/history of peritonitis, asthma , and PAF who presented with acute onset of abdominal pain, nausea and vomiting. A CT abdomen was obtained in the ER at [facility] revealing an SBO resulting from an incarcerated ventral hernia. The patient had also c/o chest pain although this was more epigastric in nature and likely related to his current obstruction. He was initially comfortable in the ER following administration of narcotics however after a few hours his pain returned and became more intense. He denied fever or SOB. He was in his normal state of health one day prior. He was on his night-time PD cycler when his GI symptoms began. The patient reports he takes percocet at bedtime for chronic pain and has been doing such for several years. HOSPITAL COURSE: In the ER the patient had an NG tube placed for decompression. He was seen in consult by [facility] general surgery and [facility] cardiology both of whom felt he was very high risk for surgery at [facility] due to his complex cardiopulmonary history. Thus, it was recommended that he transfer to a tertiary care center for surgical intervention of his incarcerated ventral hernia. Dr. Doreen Swanson, [facility] hospitalist, has graciously accepted the patient in transfer for ongoing care and definitive treatment. Prior to transfer he had considerable abdominal pain requiring multiple doses of IV dilaudid. He presumably has a significant narcotic tolerance due to long-term percocet use at home. During his brief stay at [facility] his telemetry was normal, vitals remained stable, he was afebrile, and he remained on his insulin pump. He had no evidence of ACS, CHF exacerbation, or asthma exacerbation while here. Current Inpatient Medications Medications (Trade) Dose Ordered Sig/Shasha Route Start Time Stop Time Status Last Admin Dose Admin Salmeterol Xinafoate/ Fluticasone (Advair Diskus 250/50 Inh) 1 puff Q12 INH 01/11/17 09:00 02/10/17 08:59 Insulin Aspart (novoLOG INSULIN PUMP) 1 ea UD N/A 01/11/17 06:00 02/10/17 05:59 UNV Levalbuterol (Xopenex 1.25MG/ 3ML Neb) 1.25 mg Q6H PRN INH 01/11/17 06:00 02/10/17 05:59 Nitroglycerin (Nitro-Dur 0.4 Mg/Hr Patch) 1 patch QAM TD 01/11/17 09:00 02/10/17 08:59 Metoprolol Tartrate 5 mg 5 mg Q8H IV. 01/11/17 08:00 02/10/17 05:59 Pantoprazole Sodium/Syringe (Protonix Inj/ Syringe) 10 ml @ 5 mls/min DAILY@11 IV 01/11/17 11:00 02/10/17 10:59 Lorazepam (Ativan Inj) 1 mg Q8H PRN IV 01/11/17 06:00 02/10/17 05:59 Ondansetron HCl (Zofran Inj) 4 mg Q6H PRN IV 01/11/17 06:30 02/10/17 06:29 01/11/17 08:49 4 MG Insulin Aspart SLIDING SCALE G... Q6H SC 01/11/17 06:30 02/10/17 06:29 UNV Lorazepam/Syringe (Ativan Inj/ Syringe) 1 ml @ 1 mls/min Q8H PRN IV 01/11/17 08:00 02/10/17 07:59 Miscellaneous (Remove Nitro-Dur Patch) 1 ea DAILY@21 N/A 01/11/17 21:00 02/10/17 20:59 Glucose (Glucose 40% Gel) 15-30 GRAMS 15 GRAMS... UD PRN PO 01/11/17 08:00 02/10/17 07:59 Glucose (Glucose Chew Tab) 4-8 Tablets 4 Tabl... UD PRN PO 01/11/17 08:00 02/10/17 07:59 Dextrose (Dextrose 50% 50ML Syringe) 25-50ML OF 50% DW IV FOR... UD PRN IV 01/11/17 08:00 02/10/17 07:59 Glucagon (Glucagon Inj) 1 mg UD PRN SQ 01/11/17 08:00 02/10/17 07:59 Hydralazine HCl (HydrALAZINE INJ) 10 mg Q8H IV. 01/11/17 14:00 02/10/17 13:59 Hydromorphone HCl (Dilaudid Inj) 1 mg Q1H PRN IV 01/11/17 10:00 01/25/17 09:59 01/11/17 03:15 Red Blood Count 5.34, Mean Corpuscular Volume 83.1, Mean Corpuscular Hemoglobin 28.5, Mean Corpuscular Hemoglobin Concent 34.2, Mean Platelet Volume 11.1, Neutrophils (%) (Auto) 76.9, Lymphocytes (%) (Auto) 13.5, Monocytes (%) (Auto) 6.8, Eosinophils (%) (Auto) 2.1, Basophils (%) (Auto) 0.4, Neutrophils # (Auto) 8.42, Lymphocytes # (Auto) 1.48, Monocytes # (Auto) 0.74, Eosinophils # (Auto) 0.23, Basophils # (Auto) 0.04 01/11/17 03:15 Test 01/11/17 03:15 01/11/17 04:55 01/11/17 07:25 01/11/17 09:00 White Blood Count 10.94 K/uL (4.8-10.8) Red Blood Count 5.34 M/uL (4.7-6.1) Hemoglobin 15.2 g/dL (14.0-18.0) Hematocrit 44.4 % (42-52) Mean Corpuscular Volume 83.1 fL (80-100) Mean Corpuscular Hemoglobin 28.5 pg (25-34) Mean Corpuscular Hemoglobin Concent 34.2 g/dl (32-36) Platelet Count 302 K/uL (130-400) Mean Platelet Volume 11.1 fL (7.4-10.4) Neutrophils (%) (Auto) 76.9 % Lymphocytes (%) (Auto) 13.5 % Monocytes (%) (Auto) 6.8 % Eosinophils (%) (Auto) 2.1 % Basophils (%) (Auto) 0.4 % Neutrophils # (Auto) 8.42 K/uL (1.4-6.5) Lymphocytes # (Auto) 1.48 K/uL (1.2-3.4) Monocytes # (Auto) 0.74 K/uL (0.11-0.59) Eosinophils # (Auto) 0.23 K/uL (0-0.5) Basophils # (Auto) 0.04 K/uL (0-0.2) RDW Standard Deviation 39.2 fL (36.4-46.3) RDW Coefficient of Variation 13.0 % (11.5-14.5) Immature Granulocyte % (Auto) 0.3 % Immature Granulocyte # (Auto) 0.03 K/uL (0.00-0.02) Prothrombin Time 9.8 SECONDS (9.0-12.0) Prothromb Time International Ratio 0.9 (0.9-1.1) Activated Partial Thromboplast Time 24.1 SECONDS (21.0-31.0) Partial Thromboplastin Ratio 0.9 Anion Gap 9.0 mmol/L (3-11) Estimated GFR () 37.7 Estimated GFR (Non- 32.5 BUN/Creatinine Ratio 16.6 (10-20) Calcium Level 8.7 mg/dl (8.5-10.1) Total Bilirubin 0.5 mg/dl (0.2-1) Direct Bilirubin 0.1 mg/dl (0-0.2) Aspartate Amino Transf (AST/SGOT) 25 U/L (15-37) Alanine Aminotransferase (ALT/SGPT) 50 U/L (12-78) Alkaline Phosphatase 158 U/L (45-117) Troponin I 0.023 ng/ml (0-0.045) Total Protein 7.1 gm/dl (6.4-8.2) Albumin 3.7 gm/dl (3.4-5.0) Lipase 150 U/L (73-393) Urine Color YELLOW Urine Appearance CLEAR (CLEAR) Urine pH 5.0 (4.5-7.5) Urine Specific Point Clear 1.018 (1.000-1.030) Urine Protein 2+ (NEG) Urine Glucose (UA) 2+ (NEG) Urine Ketones NEG (NEG) Urine Occult Blood NEG (NEG) Urine Nitrite NEG (NEG) Urine Bilirubin NEG (NEG) Urine Urobilinogen NEG (NEG) Urine Leukocyte Esterase NEG (NEG) Urine WBC (Auto) 1-5 /hpf (0-5) Urine RBC (Auto) 0-4 /hpf (0-4) Urine Hyaline Casts (Auto) 1-5 /lpf (0-5) Urine Epithelial Cells (Auto) 0-5 /lpf (0-5) Urine Bacteria (Auto) NEG (NEG) Lactic Acid Level 0.6 mmol/L (0.4-2.0) Test 01/11/17 10:02 I would like to thank Dr. Doreen SWANSON, the [facility] Hospitalist Team, and the [facility] Surgical team for accepting this patient in transfer for ongoing care. Jimenez Carver MD Total Time Spent: Greater than 30 minutes This includes examination of the patient, discharge planning, medication reconciliation, and communication with other providers. Discharge Instructions Please refer to the electronic Patient Visit Report (Discharge Instructions) for additional information. Follow-Up to be determined after hospitalization at [facility] Additional Copies To Ronald Hyman M.D.; Arielle Whittaker MD ; [facility]
[2017-01-11] MEDS ORDERED: PANTOprazole INJ 40 MG in SYRINGE 0 ML IV SCH (11:00)
[2017-01-11] MEDS: HYDROmorphone INJ 1 MG/ML SYR IV PRN ×4 (11:02→18:27)
--- NOTE | 2017-01-11 12:27 | Nephrology Consultation ---
Nephrology Consultation Date & Providers Date of Consultation: January 11, 2017. Primary Care Provider: Arielle Whittaker MD Referring Provider: Reason for Consultation ESRD on PD History of Present Illness Mr. Sly Caro is a 56-year-old male with end-stage renal disease who has been maintained on peritoneal dialysis since 2012. Patient initially started hemodialysis in 2012 prior to transitioning to home therapy with PD. He is twice had peritonitis. Most recently in 2016. Over the course of the past year he has been tolerating peritoneal dialysis very well. Medical history is notable for coronary artery disease as well as systolic congestive heart failure. his primary machine pecan picker is Dr. Enrique Hyman. Receives dialysis at the [facility] in [facility]. Is maintained on nocturnal treatment on the cycler. He does 4 exchanges of 2 liters each night. After filling for his had 2nd exchange last night he disconnected due to severe abdominal pain. He then presented to the emergency department with abdominal pain nausea and vomiting. He reports that his of fluid has been clear denies any cloudiness or blood. CT of the abdomen documented small bowel obstruction with incarcerated ventral hernia. Plan of care consists transfer to [facility] in [place] for definitive surgical management. The patient does have a left upper extremity AV fistula for hemodialysis access. This morning Mr. Smith was seen and evaluated in his hospital room. Medical Record was reviewed in detail. CT scan of the abdomen was personally reviewed. Past Medical/Surgical History Medical: # End-stage renal disease on peritoneal dialysis ( [facility] ) # Hypertension # Diabetes # Coronary artery disease # COPD # Obstructive sleep apnea # Anemia # Secondary hyperparathyroidism of renal origin # History of right heart failure Surgical: CABG, AV fistula and PD catheter placement Allergies Coded Allergies: Penicillins (Verified Allergy, Severe, HIVES, 01/11/17) BEE STING (Verified Allergy, Intermediate, SWELLING, 01/11/17) DOES NOT REQUIRE EPIPEN PER FAMILY Inpatient Medications Current Inpatient Medications Medications (Trade) Dose Ordered Sig/Shasha Route Start Time Stop Time Status Last Admin Dose Admin Salmeterol Xinafoate/ Fluticasone (Advair Diskus 250/50 Inh) 1 puff Q12 INH 01/11/17 09:00 02/10/17 08:59 01/11/17 11:03 1 PUFF Insulin Aspart (novoLOG INSULIN PUMP) 1 ea Pt self-managed therapy N/A 01/11/17 06:00 02/10/17 05:59 Levalbuterol (Xopenex 1.25MG/ 3ML Neb) 1.25 mg Q6H PRN INH 01/11/17 06:00 02/10/17 05:59 Nitroglycerin (Nitro-Dur 0.4 Mg/Hr Patch) 1 patch QAM TD 01/11/17 09:00 02/10/17 08:59 01/11/17 11:02 1 PATCH Metoprolol Tartrate 5 mg 5 mg Q8H IV. 01/11/17 08:00 02/10/17 05:59 Pantoprazole Sodium/Syringe (Protonix Inj/ Syringe) 10 ml @ 5 mls/min DAILY@11 IV 01/11/17 11:00 02/10/17 10:59 01/11/17 11:02 5 MLS/MIN Lorazepam (Ativan Inj) 1 mg Q8H PRN IV 01/11/17 06:00 02/10/17 05:59 Ondansetron HCl 4 mg 4 mg Q6H PRN IV 01/11/17 06:30 02/10/17 06:29 01/11/17 08:49 4 MG Lorazepam/Syringe (Ativan Inj/ Syringe) 1 ml @ 1 mls/min Q8H PRN IV 01/11/17 08:00 02/10/17 07:59 Miscellaneous (Remove Nitro-Dur Patch) 1 ea DAILY@21 N/A 01/11/17 21:00 02/10/17 20:59 Glucose (Glucose 40% Gel) 15-30 GRAMS 15 GRAMS... UD PRN PO 01/11/17 08:00 02/10/17 07:59 Glucose (Glucose Chew Tab) 4-8 Tablets 4 Tabl... UD PRN PO 01/11/17 08:00 02/10/17 07:59 Dextrose (Dextrose 50% 50ML Syringe) 25-50ML OF 50% DW IV FOR... UD PRN IV 01/11/17 08:00 02/10/17 07:59 Glucagon (Glucagon Inj) 1 mg UD PRN SQ 01/11/17 08:00 02/10/17 07:59 Hydralazine HCl (HydrALAZINE INJ) 10 mg Q8H IV. 01/11/17 14:00 02/10/17 13:59 Hydromorphone HCl (Dilaudid Inj) 1 mg Q1H PRN IV 01/11/17 10:00 01/25/17 09:59 01/11/17 11:02 1 MG Family History Hypertension Kidney disease Social History Smoking Status: Never Smoker Drug Use: none Marital Status: Housing Status: lives with family Occupation: disabled Review of Systems Constitutional: No chills, No fatigue, No fever, No weight loss Abdomen: + nausea, + pain, + vomiting A complete review of systems was performed. Pertinent positives are noted above. All other systems are negative. Physical Exam Date Time Temp Pulse Resp B/P Pulse Ox O2 Delivery O2 Flow Rate FiO2 01/11/17 11:34 36.9 59 18 163/67 94 Room Air 01/11/17 09:37 132/52 01/11/17 08:00 58 180/71 01/11/17 07:40 66 18 166/74 96 01/11/17 07:00 94 Room Air 01/11/17 06:47 66 01/11/17 06:29 62 14 162/75 94 Room Air 01/11/17 04:56 36.9 57 20 162/69 96 Room Air 01/11/17 03:47 68 16 171/82 98 Room Air 01/11/17 03:13 58 01/11/17 03:12 64 20 202/82 100 Room Air General Appearance: WD/WN, no apparent distress Head: normocephalic, atraumatic Eyes: normal inspection, sclerae normal ENT: normal ENT inspection, pharynx normal Neck: supple, no JVD Respiratory/Chest: lungs clear, no respiratory distress, no accessory muscle use Cardiovascular: regular rate, rhythm, no gallop Abdomen/GI: + tenderness (localized, no rebound), + distended, + pertinent finding (PD catheter with clean exit site) Back: no CVA tenderness Extremities/Musculoskelatal: + pertinent finding (LUE AVF with thrill and bruit ) Neurologic/Psych: alert, oriented x 3 Skin: normal color Laboratory Results Last 24 Hours Test 01/11/17 03:15 01/11/17 04:55 01/11/17 07:25 01/11/17 10:02 White Blood Count 10.94 K/uL Red Blood Count 5.34 M/uL Hemoglobin 15.2 g/dL Hematocrit 44.4 % Mean Corpuscular Volume 83.1 fL Mean Corpuscular Hemoglobin 28.5 pg Mean Corpuscular Hemoglobin Concent 34.2 g/dl Platelet Count 302 K/uL Mean Platelet Volume 11.1 fL Neutrophils (%) (Auto) 76.9 % Lymphocytes (%) (Auto) 13.5 % Monocytes (%) (Auto) 6.8 % Eosinophils (%) (Auto) 2.1 % Basophils (%) (Auto) 0.4 % Neutrophils # (Auto) 8.42 K/uL Lymphocytes # (Auto) 1.48 K/uL Monocytes # (Auto) 0.74 K/uL Eosinophils # (Auto) 0.23 K/uL Basophils # (Auto) 0.04 K/uL RDW Standard Deviation 39.2 fL RDW Coefficient of Variation 13.0 % Immature Granulocyte % (Auto) 0.3 % Immature Granulocyte # (Auto) 0.03 K/uL Prothrombin Time 9.8 SECONDS Prothromb Time International Ratio 0.9 Activated Partial Thromboplast Time 24.1 SECONDS Partial Thromboplastin Ratio 0.9 Sodium Level 142 mmol/L Potassium Level 3.4 mmol/L Chloride Level 104 mmol/L Carbon Dioxide Level 29 mmol/L Anion Gap 9.0 mmol/L Blood Urea Nitrogen 37 mg/dl Creatinine 2.20 mg/dl Estimated GFR () 37.7 Estimated GFR (Non- 32.5 BUN/Creatinine Ratio 16.6 Random Glucose 133 mg/dl Calcium Level 8.7 mg/dl Total Bilirubin 0.5 mg/dl Direct Bilirubin 0.1 mg/dl Aspartate Amino Transf (AST/SGOT) 25 U/L Alanine Aminotransferase (ALT/SGPT) 50 U/L Alkaline Phosphatase 158 U/L Troponin I 0.023 ng/ml Total Protein 7.1 gm/dl Albumin 3.7 gm/dl Lipase 150 U/L Urine Color YELLOW Urine Appearance CLEAR Urine pH 5.0 Urine Specific [place] 1.018 Urine Protein 2+ Urine Glucose (UA) 2+ Urine Ketones NEG Urine Occult Blood NEG Urine Nitrite NEG Urine Bilirubin NEG Urine Urobilinogen NEG Urine Leukocyte Esterase NEG Urine WBC (Auto) 1-5 /hpf Urine RBC (Auto) 0-4 /hpf Urine Hyaline Casts (Auto) 1-5 /lpf Urine Epithelial Cells (Auto) 0-5 /lpf Urine Bacteria (Auto) NEG Lactic Acid Level 0.6 mmol/L Test 01/11/17 10:30 01/11/17 11:09 Troponin I 0.022 ng/ml Bedside Glucose 302 mg/dl Impression (1) End stage renal failure on dialysis (2) Incarcerated ventral hernia 56-year-old male with end-stage renal disease, coronary artery disease , systolic congestive heart failure, COPD and hypertension. Patient presented with abdominal pain and nausea and vomiting. He has been maintained on peritoneal dialysis since 2012. He receives dialysis under the care of Dr. Ronald Gómez at [facility] in [place]. CT scan of the abdomen revealed an incarcerated ventral hernia. He is to be transferred to [facility] for definitive surgical management. Electrolytes and volume status are currently appropriate. I have asked the dialysis nurses to manually drain his abdomen. Specimen can be sent for cell count, Gram stain and culture. The clinical presentation does not suggest peritonitis but cannot completely excluded at this time. Left forearm AV fistula does have good thrill and bruit for use for hemodialysis is needed. There is no emergent indication for dialysis prior to surgery.
[2017-01-11] MEDS ORDERED: HydrALAZINE HCL 20 MG/ML VIAL IV. SCH (14:00)
[2017-01-11 14:47] LABS: PERIT FL WBC 18 /uL (0-300); PERITONEAL FLUID RBC < 3000 /uL
[2017-01-11] MEDS ORDERED: HYDROmorphone INJ 0.5 MG/0.5 ML SYR IV STA (16:29)
[2017-01-20] MEDS ORDERED: CIPR1TAB11 PO (22:33)
[2017-01-20] MEDS ORDERED: METR-163 PO (22:33)
--- NOTE | 2017-01-23 21:58 | SURGICAL CONSULTATION ---
DATE OF CONSULTATION: 01/11/2017 I have been asked by Dr. Carver to see this 56-year-old male who presented to the Emergency Room and was admitted with abdominal pain, nausea and vomiting. It began the day before. The pain was centered around a hernia that he has at the entrance site of the peritoneal dialysis catheter through the fascia. The peritoneal dialysis catheter was initially placed and then repositioned. He had been having no pain or nausea and vomiting since then. He had not been passing any flatus nor was he having any bowel movements. There was no melena or hematochezia and he denied dysuria and hematuria. 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 He also has obstructive sleep apnea and he has had a history of pneumonia and diabetes type 2. PAST SURGICAL HISTORY: For placement of peritoneal dialysis catheter, cholecystectomy, placement of hemodialysis catheter. MEDICATIONS AT HOME: Include acyclovir, Coreg, clopidogrel, Lasix, Apresoline, NovoLog, Imdur, ProRenal, Percocet, pantoprazole, MiraLax, Requip, Crestor, sertraline, aspirin. ALLERGIES: PENICILLIN AND BEE STINGS. PHYSICAL EXAMINATION: GENERAL: Revealed a well-developed, well-nourished male, who appeared in no acute distress. VITAL SIGNS: Blood pressure 163/67, heart rate 59, respirations 18, temperature 36.9, pulse oximetry is 94% on room air. HEENT: Reveals the sclerae to be anicteric. Mucous membranes are moist. NECK: Supple, with no JVD, no cervical or supraclavicular adenopathy. BACK: He has no spinal or CVA tenderness. LUNGS: Clear. HEART: Regular. ABDOMEN: Has decreased bowel sounds. There is a bulge just to the right and just below the umbilicus, consistent with this hernia. This is tender. The skin is nonerythematous. EXTREMITIES: Reveal no edema. LABORATORY DATA: WBC 10.9, H&H is 15.2 and 44.4, platelet count 302,000. Sodium 142, potassium 3.4, chloride 104, CO2 29, BUN 37, creatinine 2.2, glucose 133. Lactic acid 0.6, total bilirubin 0.5, AST 25, ALT 50, alkaline phosphatase 158, lipase 150. INR is 0.9. CT scan of the abdomen and pelvis showed a hernia in the ventral pelvis containing a loop of small bowel with some ascitic fluid. The small bowel proximal to this hernia is distended with fecalization. It is also fluid filled, measuring up to 3 cm, consistent with bowel obstruction. There is mild colonic diverticulosis without CT evidence of diverticulitis. The peritoneal dialysis catheter was noted in the pelvis. ASSESSMENT AND PLAN: This hernia could not be reduced. We will need surgical intervention. There is no evidence of bowel ischemia at this time. I had a discussion with cardiology, who feels that from a comorbid standpoint, especially his cardiac status, that a tertiary care center would be a more appropriate site for surgical intervention. I discussed this with Dr. Perez at [place] and she has accepted the patient. He will be transferred there. [place]
[2017-01-24] MEDS ORDERED: PLV75 PO (14:19)
[2017-01-24] MEDS ORDERED: B-COCAP20 PO (14:19)
[2017-01-24] MEDS ORDERED: POLY335019 PO (14:19)
[2017-01-24] MEDS ORDERED: PHS667 PO (14:19)
[2017-02-03] MEDS ORDERED: B-COTAB18 PO (04:40)
[2017-02-03] MEDS ORDERED: CALC667C4 PO (04:42)
[2017-02-03] MEDS ORDERED: CLOP1TAB15 PO (04:44)
[2017-02-03] MEDS ORDERED: POLY335019 PO (04:57)
[2017-02-05] MEDS ORDERED: CRG3125 PO (10:41)
== END 2017-01-11 21:07 | disposition short-term general hospital (02) | DRG 393 ==
LOC: ENRESERVDT → ENRESERVTM → C.EDB 02:50 → C.2E 06:25
PROVIDERS: ADMIT Internal Medicine; ATTEND Internal Medicine
DX: K43.6 Other and unspecified ventral hernia with obstruction, without gangrene (principal); N18.6 End stage renal disease; I50.22 Chronic systolic (congestive) heart failure; N25.81 Secondary hyperparathyroidism of renal origin; I13.2 Hypertensive heart and chronic kidney disease with heart failure and with stage 5 chronic kidney disease, or end stage renal disease; E10.59 Type 1 diabetes mellitus with other circulatory complications; E10.22 Type 1 diabetes mellitus with diabetic chronic kidney disease; I25.10 Atherosclerotic heart disease of native coronary artery without angina pectoris; I48.0 Paroxysmal atrial fibrillation; J44.9 Chronic obstructive pulmonary disease, unspecified; E78.5 Hyperlipidemia, unspecified; D64.9 Anemia, unspecified; G89.4 Chronic pain syndrome; G47.33 Obstructive sleep apnea (adult) (pediatric); Z99.2 Dependence on renal dialysis; Z96.41 Presence of insulin pump (external) (internal); Z95.1 Presence of aortocoronary bypass graft; Z87.891 Personal history of nicotine dependence; Z79.82 Long term (current) use of aspirin; Z79.02 Long term (current) use of antithrombotics/antiplatelets; Z79.51 Long term (current) use of inhaled steroids; Z79.891 Long term (current) use of opiate analgesic; Z79.899 Other long term (current) drug therapy

== ENCOUNTER 2017-01-24 21:41 | Inpatient (IN) | payer OTHER ==
[~2017-01-24] VITALS: Ht 162.6 cm; Wt 83.9 kg
[~2017-01-24 21:41] MED LIST changes: +ALBU18002 INH; -ALBU1AER9 INH; +B-COCAP20 PO; -B-COCAP28 PO; +CIPR1TAB11 PO; -CPR500 PO; -DOCU100T7 PO; +FURO-85 PO; +INSPMPNVLG; +LACT10SO17 PO; -LSX40 PO; +METR-163 PO; +MULT-650 PO; -NVLGI; +ONDA4TAB46 PO; +PHS667 PO; +POLY335019 PO; -POTA20TA13 PO; +ROPI1TAB PO; +ROSU20TA PO; -RQP/2 PO; +TRAZ50TA35 PO
[2017-01-24] MEDS ORDERED: FENTANYL CITRATE INJ 50 MCG/1 ML 2 ML VIAL IV STA (22:00)
--- NOTE | 2017-01-24 22:06 | EMERGENCY ROOM VISIT NOTE ---
History Report prepared by Dana: Freya Gutierrez Under the Supervision of: Dr. Vick San M.D. First contact with patient: 21:54 Chief Complaint: CHEST PAIN Stated Complaint: CHEST PAIN,LEFT ARM PAIN History of Present Illness The patient is a 56 year old male who presents to the Emergency Room with complaints of constant chest pain. Crushing in nature. Radiates to left arm. Similar to previous [place]. SLNTG with mild improvement in chest pain [employer]. No syncope, shob, nausea, palpitations nor other symptoms. Nothing makes better nor worse. No inciting incident. Was just sitting at house. History of CABG, last cath 5 years ago and no stents at that time. Complex history diabetic with renal failure with recent incarcerated hernia requiring operative approach. Post op GI bleed for which he required multiple units PRBCs, and just discharged from hospital a few hours ago post dialysis/transfusion. Notes some mild diffuse abdominal pain stable post-op without acute change. Source of History: patient Position: chest Quality: other (chest pain ) Timing: constant Associated Symptoms: + abdominal pain, No SOB, No urinary symptoms Review of Systems See HPI for pertinent positives & negatives. A total of 10 systems reviewed and were otherwise negative. Past Medical & Surgical Medical Problems: (1) ACS (acute coronary syndrome) (2) Acute renal failure syndrome (3) Asthma (4) Benign hypertension (5) Cholecystectomy (6) Chronic obstructive lung disease (7) Coronary artery bypass grafting (8) Diabetes mellitus (9) End stage renal failure on dialysis (10) Heart disease (11) Hepatitis (12) Incarcerated ventral hernia (13) Intermitent atrial fibrillation (14) Myocardial infarction (15) Obstructive sleep apnea syndrome (16) Peritoneal dialysis status (17) Peritonitis associated with peritoneal dialysis (18) Pneumonia (19) Secondary hyperparathyroidism of renal origin Surgical Problems: (1) History of bowel resection (2) History of hernia repair Family History Hypertension Kidney disease Social History Smoking Status: Never Smoker Alcohol Use: none Drug Use: none Marital Status: Housing Status: lives with family Occupation Status: disabled Current/Historical Medications Scheduled Acyclovir (Acyclovir), 400 MG PO BID Albuterol Sulfate (Proair Respiclick), 2 PUFFS INH QAM Aspirin (Aspirin Ec), 81 MG PO QPM B-Complex W/ C & Folic Acid (Renal), 1 CAP PO QAM Calcium Acetate (Phoslo 667 Mg), 667 MG PO TIDM Carvedilol (Coreg), 25 MG PO AMPM Clopidogrel Bisulfate (Clopidogrel), 75 MG PO QAM Fluticasone Prop/Salmeterol (Advair Diskus 250/50 60 Dose), 1 PUFF INH Q12 Furosemide (Lasix), 20 MG PO QAM Hydralazine Hcl (Apresoline), 25 MG PO TID Insulin Aspart (novoLOG INSULIN PUMP ), 1 EA N/A UD Isosorbide Mononitrate Ext Rel (Imdur Ext Rel), 120 MG PO QAM Montelukast Sod (Montelukast Sodium), 10 MG PO QPM Multiple Vitamins W/ Minerals (Prorenal Qd), 1 CAP PO QAM Oxycodone/Acetaminophen 5MG/325MG (Percocet 5MG/325MG), 1 TABLET PO HS Pantoprazole (Pantoprazole Sodium), 40 MG PO QAM Ropinirole (Requip), 2 MG PO QPM Ropinirole Hydrochloride (Requip), 1 MG PO QAM Rosuvastatin Calcium (Crestor), 20 MG PO DAILY Sertraline HCl (Sertraline HCl), 50 MG PO QPM Scheduled PRN Glucagon (Glucagon Emergency Kit), 1 DOSE INJ UD PRN for HYPOGLYCEMIA Lactulose (Chronulac), 1 DOSE PO DIRECTED PRN for Constipation Levalbuterol (Levalbuterol HCl), 1 VIAL NEB TID PRN for COPD Lorazepam (Ativan), 0.5-1 MG PO BID PRN for Anxiety Nitroglycerin (Nitrostat), 0.4 MG UT UD PRN for Chest Pain Ondansetron Hcl (Zofran), 4 MG PO Q6H PRN for Nausea Polyethylene Glycol 3350 (Miralax), 17 GM PO QAM PRN for Constipation Trazodone Hcl (Trazodone), 50 MG PO HS PRN for Sleep Allergies Coded Allergies: Penicillins (Verified Allergy, Severe, HIVES, 01/24/17) BEE STING (Verified Allergy, Intermediate, SWELLING, 01/24/17) DOES NOT REQUIRE EPIPEN PER FAMILY Physical Exam Vital Signs Date Time Temp Pulse Resp B/P (MAP) Pulse Ox O2 Delivery O2 Flow Rate FiO2 01/25/17 00:15 76 16 135/89 95 Room Air 01/24/17 23:26 90 20 134/83 99 01/24/17 23:08 78 23 138/63 99 Nasal Cannula 2.0 01/24/17 22:52 82 23 135/65 Nasal Cannula 2.0 01/24/17 22:15 82 20 124/56 99 Nasal Cannula 2.0 01/24/17 22:05 88 01/24/17 22:03 100 Nasal Cannula 2.0 01/24/17 21:50 37.3 89 25 136/68 100 Room Air 01/24/17 21:50 100 Room Air Physical Exam GENERAL: Chronically unwell appearing, moderate distress, acutely unwell appearing. HEENT: No acute trauma, normocephalic atraumatic, mucous membranes moist, no nasal congestion, no scleral icterus. NECK: No stridor, no adenopathy, no meningismus, trachea is midline. LUNGS: No dyspnea. Clear to auscultation and equal bilaterally. No wheeze, no rhonchi. HEART: Regular rate and rhythm. No murmurs, rubs, gallops appreciated. ABDOMEN: Soft, nontender, bowel sounds positive, no masses appreciated, no peritonitis.Extensive bruising with intact surgical scars. [place] intact. Mild erythema without evidence. Cellulitis around abdominal incisions. BACK: No midline tenderness, no CVA tenderness EXTREMITIES: Normal motion all extremities, no cyanosis. Fistula left distal arm. Trace edema bilateral lower legs. NEUROLOGIC: Alert and oriented, no acute motor or sensory deficits, no focal weakness, cranial nerves grossly intact. SKIN: No rash, no jaundice. Diaphoretic. Medical Decision & Procedures ER Provider Diagnostic Interpretation: X ray results are stated below per my interpretation and the radiologist's interpretation. SINGLE VIEW CHEST CLINICAL HISTORY: Atypical chest pain. FINDINGS: An AP, portable, upright chest radiograph is compared to study dated 01/11/2017 and correlated with chest CT dated 04/10/2010. The examination is degraded by portable technique and patient rotation. The patient is status post midline sternotomy. The heart is enlarged and there is atherosclerotic calcification of the thoracic aorta. There is mild pulmonary vascular congestion. Trace pleural effusions are identified. No airspace consolidation is seen typical for pneumonia. No pneumothorax is seen. The skeletal structures are osteopenic. The bony thorax is grossly intact. Degenerative change is noted in the thoracic spine and shoulders. IMPRESSION: 1. Cardiomegaly with evidence of mild congestive failure. 2. Trace pleural effusions. Electronically signed by: Richi Villa M.D. 01/24/2017 10:31 PM Dictated Date/Time: 01/24/2017 10:29 PM Laboratory Results 01/24/17 22:00 Red Blood Count 3.31, Mean Corpuscular Volume 88.2, Mean Corpuscular Hemoglobin 29.9, Mean Corpuscular Hemoglobin Concent 33.9, Mean Platelet Volume 11.3, Neutrophils (%) (Auto) 85.9, Lymphocytes (%) (Auto) 6.2, Monocytes (%) (Auto) 6.2, Eosinophils (%) (Auto) 0.7, Basophils (%) (Auto) 0.3, Neutrophils # (Auto) 16.53, Lymphocytes # (Auto) 1.20, Monocytes # (Auto) 1.20, Eosinophils # (Auto) 0.13, Basophils # (Auto) 0.05 01/24/17 22:00 Test 01/24/17 22:00 01/24/17 22:07 01/24/17 22:09 White Blood Count 19.24 K/uL (4.8-10.8) Red Blood Count 3.31 M/uL (4.7-6.1) Hemoglobin 9.9 g/dL (14.0-18.0) Hematocrit 29.2 % (42-52) Mean Corpuscular Volume 88.2 fL (80-100) Mean Corpuscular Hemoglobin 29.9 pg (25-34) Mean Corpuscular Hemoglobin Concent 33.9 g/dl (32-36) Platelet Count 322 K/uL (130-400) Mean Platelet Volume 11.3 fL (7.4-10.4) Neutrophils (%) (Auto) 85.9 % Lymphocytes (%) (Auto) 6.2 % Monocytes (%) (Auto) 6.2 % Eosinophils (%) (Auto) 0.7 % Basophils (%) (Auto) 0.3 % Neutrophils # (Auto) 16.53 K/uL (1.4-6.5) Lymphocytes # (Auto) 1.20 K/uL (1.2-3.4) Monocytes # (Auto) 1.20 K/uL (0.11-0.59) Eosinophils # (Auto) 0.13 K/uL (0-0.5) Basophils # (Auto) 0.05 K/uL (0-0.2) RDW Standard Deviation 48.6 fL (36.4-46.3) RDW Coefficient of Variation 15.8 % (11.5-14.5) Immature Granulocyte % (Auto) 0.7 % Immature Granulocyte # (Auto) 0.13 K/uL (0.00-0.02) Prothrombin Time 10.2 SECONDS (9.0-12.0) Prothromb Time International Ratio 1.0 (0.9-1.1) Activated Partial Thromboplast Time 23.8 SECONDS (21.0-31.0) Partial Thromboplastin Ratio 0.9 Est Creatinine Clear Calc Drug Dose 37.1 ml/min Estimated GFR () 37.7 Estimated GFR (Non- 32.5 BUN/Creatinine Ratio 11.1 (10-20) Calcium Level 8.1 mg/dl (8.5-10.1) Total Creatine Kinase 51 U/L (39-308) Creatine Kinase MB 1.4 ng/ml (0.5-3.6) Creatine Kinase MB Ratio 2.7 (0-3.0) Troponin I 0.244 ng/ml (0-0.045) Beta-Hydroxybutyric Acid 5.93 mg/dL (0.2-2.81) Bedside Troponin I 0.170 ng/ml (0-0.045) Bedside Hemoglobin 10.5 g/dl (14.0-18.0) Bedside Hematocrit 31 % (42-52) Bedside Sodium 132 mEq/L (135-144) Bedside Potassium 4.4 mEq/L (3.3-5.0) Bedside Chloride 96 mEq/L (101-112) Bedside Total CO2 23 mEq/l (24-31) Anion Gap 19.0 mmol/L (16-25) Bedside Blood Urea Nitrogen 22 mg/dl (7-18) Bedside Creatinine 2.0 mg/dl (0.6-1.3) Bedside Glucose (other) 501 mg/dl (70-99) Bedside Ionized Calcium (Janes) 1.03 mmol/l (1.12-1.32) Laboratory results as reviewed by me. Medications Administered Medications (Trade) Dose Ordered Sig/Shasha Route Start Time Stop Time Status Last Admin Dose Admin Nitroglycerin (Nitrostat Tab) 0.4 mg Q5M PRN SL 01/24/17 22:00 01/25/17 00:56 DC 01/24/17 22:55 0.4 MG Fentanyl Citrate (Fentanyl Inj) 100 mcg NOW STAT IV 01/24/17 22:00 01/24/17 22:02 DC 01/24/17 22:00 100 MCG Insulin Human Regular (novoLIN-R U-100 PER UNIT) 10 units NOW STAT IV 01/24/17 22:26 01/24/17 22:28 DC 01/24/17 22:34 10 UNITS Aspirin (Aspirin Chew) 324 mg NOW STAT PO 01/24/17 22:26 01/24/17 22:28 DC 01/24/17 22:32 324 MG Midazolam HCl (Versed Inj) 2 mg STK-MED ONCE .ROUTE 01/24/17 23:22 01/24/17 23:23 DC 01/24/17 23:22 2 MG ECG Indication: chest pain Rate (beats per minute): 92 Rhythm: normal sinus Findings: no ectopy, other (ST elevation and anterior leads, upsloping ST segment, deep lateral ST depressions. These changes are acute from previous EKG. SC interval normal. ) Change: Repeat EKG: Rate of 76. Normal sinus rhythm, morphology with similar ST's to previous EKG's. No ectopy. Third EKG: Rate of 83. Similar to previous EKG but some increasing ST elevation in V2. ED Course 2155: The patient was evaluated in room B4. A complete history and physical exam was performed. 2199: Ordered Fentanyl Inj 100 mcg IV, Nitroglycerin 0.4 mg SL. 2204: Dr. Shepherd will be down shortly. We are awaiting hemoglobin to make a decision whether to go to slab tripper or not. 2226: The patient reports that he is pain free and says that he feels great. 2226: Ordered Aspirin 324 mg PO, Insulin Human Regular 10 units IV. 2227: The patient's EKG still shows ST abnormalities. Dr. Shepherd will discuss with interventionists prior to calling heart alert. 2238: Dr. Shepherd is discussing the case with Dr. Rahman. 2253: Dr. Shepherd reports that the patient is having increasing chest pain. Code heart alert. 2321: Ordered Heparin Sodium (Porcine) 10,000 unit .ROUTE, Nicardipine HCl 25 mg .ROUTE. 2322: Ordered Nitroglycerin/Dextrose 2,000 mcg .ROUTE, Heparin Sodium/Sodium Chloride 3,000 unit .ROUTE, Midazolam HCl 2 mg .ROUTE. 2258: Dr. Rahman and Dr. Shepherd agreed to pulling 2 units of blood. 0015: Upon reevaluation, the patient is still in distress. Discussed results and treatment plan with the patient. He verbalized understanding and agreement with the treatment plan. The patient will be evaluated for further management. Medical Decision Differential: Cardiac Ischemia (STEMI, NSTEMI, Unstable Angina, etc), Aortic Dissection, Arrhythmia, Pulmonary Embolism, Pneumonia, Pneumothorax, MSK, Infectious, Pericarditis/Myocarditis, Esophageal Rupture, Gastrointestinal, amongst other pathologies entertained. 56 yr old male with complex PMH arrives with acute left chest pressure radiating to left arm and looks quite unwell on arrival. I was made aware of patient with chest pain ~ 14 minutes after patient arrival by nursing due to symptoms and abnormal EKG. EKG with ST elevation which is acutely new from one just a few days ago as well as more significant lateral depressions. Of note this is second admission in last month, initially for bowel incarceration/ obstructions, then acute GI bleed. He was just discharged this afternoon post dialysis and 2 Unit PRBC transfusion. I immediately went to evaluate patient and he was as said, ill appearing and quite uncomfortable. Given SLNTG along with Fentanyl with complete resolution of pain and feeling quite well. I immediately discussed case with laborer aquatic life (who knows him exceedingly well), and given patient's history he feels that holding on immediate heart alert while awaiting HgB return (as long as pain gone) and in mean time he will be down to evaluate immediately. Patient feeling well, HgB stable and vitals OK. Dr Shepherd in to evaluate and discuss with patient. Trop returns elevated for patient even though he is dialysis patient, further confirming this was acute coronary event. By definition meets STEMI criteria, though with his complex history and laborer aquatic life input an immediate STEMI alert held, especially given heavy bleeding and multiple transfusions he has required in just last few days. He was given ASA 324mg with knowledge of bleeding, but definitive benefit of giving asa to acs. He was doing well though chest pain started to return. EKG repeat showing ST elevation again and with return of pain Dr Shepherd (and Dr Rahman who was now aware of patient due to earlier call) felt that cath necessary. SLNTG with improvement. Heart Alert called and patient prepped for cath. Held off on further anticoagulation given risks of bleeding and wish for visualization prior to anti-coagulation. Dr Shepherd heavily involved in patient care and I greatly appreciate his input and knowledge of patient. Consults Time Called: 2199 Consulting Physician: Dr. Shepherd -Cardiology Returned Call: 2204 Discussed the case with Dr. Shepherd. He will check out the patient. Impression Primary Impression: STEMI (ST elevation myocardial infarction) Additional Impression: Acute coronary syndrome Critical Care I have personally spent greater than 90 minutes of critical care time in the direct management of this patient. This was a life/limb threatening event. This includes time spent evaluating patient, direct bedside care, chart review, placing orders, interpretation of diagnostic studies, discussion with consultants, patient, and family members, as well as other required patient management activities. This 90 minutes is in excess of all separately billable procedures. Scribe Attestation The scribe's documentation has been prepared under my direction and personally reviewed by me in its entirety. I confirm that the note above accurately reflects all work, treatment, procedures, and medical decision making performed by me. Departure Information Dispostion Being Evaluated By Hospitalist Referrals Arielle Whittaker MD (PCP) Patient Instructions My [facility] Problem Qualifiers Primary Impression: STEMI (ST elevation myocardial infarction) Involved coronary artery: unspecified coronary artery Qualified Codes: I21.3 - ST elevation (STEMI) myocardial infarction of unspecified site
[2017-01-24 22:12] LABS: BASO % 0.3 %; BASO ABS # 0.05 K/uL (0-0.2); COMPLETE YES; EOS % 0.7 %; HEMATOCRIT 29.2 % (42-52); IG% 0.7 %; LYMPH % 6.2 %; MEAN CELL VOLUME 88.2 fL (80-100); MEAN CORPUSCULAR HEMOGLOBIN 29.9 pg (25-34); MEAN CORPUSCULAR HGB CONC 33.9 g/dl (32-36); MEAN PLATELET VOLUME 11.3 fL (7.4-10.4); MONO % 6.2 %; NEUT % 85.9 %; PLATELET COUNT 322 K/uL (130-400); RED BLOOD COUNT 3.31 M/uL (4.7-6.1); WHITE BLOOD COUNT 19.24 K/uL (4.8-10.8)
[2017-01-24] MEDS: NITROGLYCERIN 0.4 MG SL PER TAB CHARGE SL PRN ×2 (22:12→22:55)
[2017-01-24 22:22] LABS: ISTAT HEMOGLOBIN 10.5 g/dl (14.0-18.0); ISTAT IONIZED CALCIUM 1.03 mmol/l (1.12-1.32)
[2017-01-24] MEDS ORDERED: ASPIRIN 324 MG CHEW PO STA (22:26)
[2017-01-24] MEDS ORDERED: NovoLIN-R INSULIN PER UNIT CHARGE IV STA (22:26)
[2017-01-24 22:27] LABS: CALCIUM 8.1 mg/dl (8.5-10.1)
--- NOTE | 2017-01-24 22:32 | DIAGNOSTIC IMAGING REPORT ---
SINGLE VIEW CHEST CLINICAL HISTORY: Atypical chest pain. FINDINGS: An AP, portable, upright chest radiograph is compared to study dated 01/11/2017 and correlated with chest CT dated 04/10/2010. The examination is degraded by portable technique and patient rotation. The patient is status post midline sternotomy. The heart is enlarged and there is atherosclerotic calcification of the thoracic aorta. There is mild pulmonary vascular congestion. Trace pleural effusions are identified. No airspace consolidation is seen typical for pneumonia. No pneumothorax is seen. The skeletal structures are osteopenic. The bony thorax is grossly intact. Degenerative change is noted in the thoracic spine and shoulders. IMPRESSION: 1. Cardiomegaly with evidence of mild congestive failure. 2. Trace pleural effusions. Electronically signed by: Richi Villa M.D. 01/24/2017 10:31 PM Dictated Date/Time: 01/24/2017 10:29 PM
[2017-01-24 22:39] LABS: BUN/CREATININE RATIO 11.1 (10-20); CKMB/CK RATIO 2.7 (0-3.0); CREATININE 2.2 mg/dl (0.60-1.40); POTASSIUM 4.4 mmol/L (3.5-5.1)
[2017-01-24 22:53] LABS: BETA-HYDROXYBUTYRATE 5.93 mg/dL (0.2-2.81)
[2017-01-24 23:10] LABS: PARTIAL THROMBOPLASTIN RATIO 0.9; PROTHROMBIN TIME (PATIENT) 10.2 SECONDS (9.0-12.0)
[2017-01-24] MEDS ORDERED: NiCARDipine HCL INJ 2.5 MG/ML 10 ML AMP ONE (23:21)
[2017-01-24] MEDS ORDERED: HEPARIN SOD (PORCINE) 1000 UNIT/ML 10 ML VIAL ONE (23:21)
[2017-01-24] MEDS ORDERED: NITROGLYCERIN/D5W 100MCG/ML 20ML SYR ONE (23:22)
[2017-01-24] MEDS ORDERED: MIDAZOLAM HCL 1 MG/ML 2ML VIAL ONE (23:22)
--- NOTE | 2017-01-24 23:41 | Cardiology Consultation ---
Cardiology Consultation Date of Consultation: Jan 24, 2017 History of Present Illness Candelario Caro is a 56 year old male seen in cardiology consultation per the request of Dr Guzman for the evaluation of an acute coronary syndrome. The patient has a history of complex early onset coronary artery disease in the setting of type 1 diabetes with remote coronary artery bypass grafting 2 in 2005 with HDZ to LAD and saphenous vein graft to the obtuse marginal. His last echocardiogram was in 2014 with findings consistent with ischemic cardiomyopathy with a anterior anteroseptal and apical wall motion abnormality and ejection fraction which was moderately depressed in the 30-35% range. The patient had recently presented to [facility] last month with abdominal discomfort. Due to his complex history he was transferred to [facility] for surgical opinion and subsequently underwent partial small bowel resection and hernia repair on 01/12/17. [place] [facility] [place] days later readmitted on Monday01/20/17 with complaints of dizziness. At that time he had no angina. He was found to have a hemoglobin of 7.8 g/dL. He was hospitalized having initially received 2 units of packed red blood cells and then an additional unit on 01/23/17 and an additional unit today 01/24/17. He underwent EGD today with no bleeding source found. His hemoglobin this morning was 8.4 g/ dL pretransfusion with transfusion having taken place while on dialysis after the EGD. This evening he had some discomfort in his legs and cannot get comfortable. He subsequently developed chest and arm discomfort that waxed and waned and then intensified to a 9 out of 10 severity. He presents to the emergency department on 01/24/17 at 2150 his initial EKG revealed subtle new ST segment elevation in leads V1 to V3 worse than his typical baseline over Q waves in V1 to V4 and lateral ST segment depression that was new and significantly different compared to his prior tracing dated 01/20/17. The patient received sublingual nitroglycerin and dose of fentanyl. When I was alerted of his presentation by page his hemoglobin had just been drawn and was pending. On my arrival the patient's hemoglobin had just been resulted at 9.9 g/dL a leukocytosis of 19.2. The patient was completely chest pain-free on my initial assessment. Another EKG was performed that revealed continued mild anterior ST elevation and lateral ST depression. The patient was reassessed at that time had recurrent chest pain and left arm pain of a 3 out of 10 in intensity. The case was discussed with Dr. Rahman of interventional cardiology and the cardiac catheterizaion lab was activated. History Past Medical History: 1. Early onset aggressive diabetic atherosclerotic coronary artery disease with prior CABG, incomplete revascularization, ischemic cardiomyopathy 2. History of chronic exertional angina 3. End-stage renal disease, previously on peritoneal dialysis, recently switched to hemodialysis 4. History of severe asthmatic lung disease 5. Long-standing history of type 1 diabetes mellitus with vascular complications 5. Paroxysmal atrial fibrillation, non on anticoagulation due to need for ongoing dual antiplatelet therapy Past Surgical History: 1. Coronary artery bypass graft surgery in 2005 with HDZ to LAD, vein graft to circumflex, with poor surgical targets at the time of initial CABG. Most recent local cardiac catheterization took place at [facility] in December 2012 at which time he was found to have significant three-vessel coronary disease including 100% proximal right coronary artery stenosis, several severe stenosis in the [place] LAD and circumflex systems with patent HDZ to LAD and patent vein graft to the obtuse marginal. 2. Shoulder surgery 3. Carpal tunnel surgery 4. Upper scalp cholecystectomy 5. Vasectomy 6. Cataract surgery 7. Cardiac catheterization on several occasions 8. Recent partial resection and hernia repair January 12, 2017 9. EGD 01/24/2017 Social History: History former smoker having quit 2005. He lives with his family independently. Review Of Systems See above for pertinent positives & negatives. A total of 10 systems reviewed and were otherwise negative. Allergies Coded Allergies: Penicillins (Verified Allergy, Severe, HIVES, 01/24/17) BEE STING (Verified Allergy, Intermediate, SWELLING, 01/24/17) DOES NOT REQUIRE EPIPEN PER FAMILY Medications Reported Home Medications Medications Dose Route/Sig Max Daily Dose Days Date Category Dose Instructions Renal (B-Complex W/ C & Folic Acid) 1 Cap Cap 1 Cap PO QAM 30 01/24/17 Rx Phoslo 667 Mg (Calcium Acetate) 667 Mg Cap 667 Mg PO TIDM 30 01/24/17 Rx Miralax (Polyethylene Glycol 3350) 1 Pow 17 Gm PO QAM PRN 01/24/17 Rx Clopidogrel (Clopidogrel Bisulfate) 75 Mg Tab 75 Mg PO QAM 1 01/24/17 Rx DO NOT TAKE THIS UNTIL YOUR SURGEON SAYS IT IS OK TO RESUME BECAUSE OF YOUR RECENT GI BLEEDING Prorenal Qd (Multiple Vitamins W/ Minerals) 1 Cap Cap 1 Cap PO QAM 01/11/17 Reported Crestor (Rosuvastatin Calcium) 20 Mg Tab 20 Mg PO DAILY 01/11/17 Reported Zofran (Ondansetron HCl) 4 Mg Tab 4 Mg PO Q6H PRN 01/11/17 Reported Chronulac (Lactulose) 10 Gm/15 Ml Syrp 1 Dose PO DIRECTED PRN 01/11/17 Reported Trazodone (Trazodone HCl) 50 Mg Tab 50 Mg PO HS PRN 01/11/17 Reported Requip (Ropinirole HCl) 1 Mg Tab 2 Mg PO QPM 01/11/17 Reported Proair Respiclick (Albuterol Sulfate) 108 Mcg/Act Aer 2 Puffs INH QAM 01/11/17 Reported Requip (Ropinirole Hydrochloride) 1 Mg Tab 1 Mg PO QAM 01/11/17 Reported Lasix (Furosemide) 20 Mg Tab 20 Mg PO QAM 01/11/17 Reported novoLOG INSULIN PUMP (Insulin Aspart) 1 Ea Inj 1 Ea N/A UD 01/11/17 Reported Apresoline (Hydralazine Hcl) 25 Mg Tab 25 Mg PO TID 12/02/14 Reported Percocet 5MG/325MG (Oxycodone/Acetaminophen) Tab 1 Tablet PO HS 11/07/14 Reported Aspirin Ec (Aspirin) 81 Mg Tab 81 Mg PO QPM 11/07/14 Reported Nitrostat (Nitroglycerin) 0.4 Mg Tab 0.4 Mg UT UD PRN 09/29/[address] ONE TABLET UNDER THE TONGUE FOR UP TO 3 DOSES IF NEEDED FOR CHEST PAIN. Advair Diskus 250/50 60 Dose (Fluticasone Prop/Salmeterol) 1 Ea Aerp 1 Puff INH Q12 09/29/14 Reported Levalbuterol HCl (Levalbuterol) 1.25 Mg/3 Ml Nebu 1 Vial NEB TID PRN 09/29/14 Reported Pantoprazole Sodium (Pantoprazole) 40 Mg Tab 40 Mg PO QAM 09/29/14 Reported Acyclovir 400 Mg Tab 400 Mg PO BID 09/29/14 Reported Montelukast Sodium (Montelukast Sod) 10 Mg Tab 10 Mg PO QPM 09/29/14 Reported Coreg (Carvedilol) 25 Mg Tab 25 Mg PO AMPM 09/29/14 Reported Sertraline HCl 50 Mg Tab 50 Mg PO QPM 09/29/14 Reported Glucagon Emergency Kit (Glucagon) 1 Mg Kit 1 Dose INJ UD PRN 06/10/14 Reported Ativan (Lorazepam) 1 Mg Tab 0.5-1 Mg PO BID PRN 08/24/12 Reported Imdur Ext Rel (Isosorbide Mononitrate) 120 Mg Ertab 120 Mg PO QAM 04/06/11 Reported Physical Exam Vital Signs (Last 8hrs): Last 8 Hrs Date Time Temp Pulse Resp B/P (MAP) Pulse Ox O2 Delivery O2 Flow Rate FiO2 01/24/17 22:52 82 23 135/65 Nasal Cannula 2.0 01/24/17 22:15 82 20 124/56 99 Nasal Cannula 2.0 01/24/17 22:05 88 01/24/17 22:03 100 Nasal Cannula 2.0 01/24/17 21:50 37.3 89 25 136/68 100 Room Air 01/24/17 21:50 100 Room Air General Appearance: Chronically ill in appearance, was in acute distress on his initial presentation but improved at present. Head: Normocephalic Atraumatic. Eyes: PERRLA, EOMI, conjunctiva and sclera clear Neck: Supple. No carotid bruits noted. No JVD. No HJD. Respiratory: Breath sounds clear to auscultation bilaterally. No w/r/r. Cardiovascular: Reg rate and rhythm. S1 and S2 noted. No murmurs, rubs, gallops. PMI non displace. Abdomen: Decreased bowel sounds, mildly distended, surgical norma noted, mild ecchymosis at the sites of subcutaneous injections Extremities: Trace ankle edema Neuro: No focal deficits. Psychiatric: Normal affect. Data Last Resulted 01/24/17 22:00 Red Blood Count 3.31, Mean Corpuscular Volume 88.2, Mean Corpuscular Hemoglobin 29.9, Mean Corpuscular Hemoglobin Concent 33.9, Mean Platelet Volume 11.3, Neutrophils (%) (Auto) 85.9, Lymphocytes (%) (Auto) 6.2, Monocytes (%) (Auto) 6.2, Eosinophils (%) (Auto) 0.7, Basophils (%) (Auto) 0.3, Neutrophils # (Auto) 16.53, Lymphocytes # (Auto) 1.20, Monocytes # (Auto) 1.20, Eosinophils # (Auto) 0.13, Basophils # (Auto) 0.05 Last Resulted 01/24/17 22:00 Past 24 Hours Test 01/24/17 22:00 Range/Units Creatine Kinase MB 1.4 0.5-3.6 ng/ml Creatine Kinase MB Ratio 2.7 0-3.0 Prothromb Time International Ratio 1.0 0.9-1.1 Prothrombin Time 10.2 9.0-12.0 SECONDS Total Creatine Kinase 51 39-308 U/L Troponin I 0.244 *H 0-0.045 ng/ml Chest x-ray radiology report reveals cardiomegaly with mild pulmonary vascular congestion trace pleural effusions EKG tracings as outlined in history of present illness Assessment & Plan Impression: 56-year-old male 1. Acute coronary syndrome, dynamic anteroseptal ST elevations over Q waves, lateral ST depression, per my interpretation EKG meets criteria for ST elevation myocardial infarction 2. Recent intra-abdominal surgery, postoperative anemia, with dark stools, had recently received 4 units of packed red blood cells during this recent hospital stay from 01/20/17-01/24/17 with stable hemoglobin at the time of presentation with angina this evening. 3. Known diffuse diabetic coronary artery disease, past cardiac catheterization locally in 2012 with no surgical or interventional targets, has had cardiac catheterization in the interim in [place] also with findings of no interventional targets. Discussion/recommendations: His past history is well known to the undersigned. During his recent stay with anemia, his chronic aspirin and clopidogrel doses had been held and he was discharged with plans to resume low-dose aspirin tomorrow. Clopidogrel was going to be reinitiated as an outpatient after it was assured that his hemoglobin remained stable. On my initial assessment the patient was hoping to manage him conservatively without cardiac catheterization. His EKG changes however were dramatic and much more profound than the previous dynamic ST segment changes observed during other hospital stays 3 suddenly and over the last few years. He was having waxing and waning angina, and after reassessment, was felt that urgent coronary angiography was indicated. The case was discussed with Dr. Rahman in the Field Representatives Director has been activated. Post procedure, patient to be admitted to the ICU on the [place] hospitalist service. He follows with [facility] [place]. Need to monitor his Hgb/ HCT closely and keep Hgb > or equal to 10 g/dl.
--- NOTE | 2017-01-24 23:57 | Critical Care Consultation ---
Critical Care Consultation Date of Consultation: Jan 24, 2017. Attending Physician: Dr. Maximiliano Briseno Reason for Consultation: Heart Alert History of Present Illness Sly Caro is a 56 yo male who presented the emergency room status post 9 on a 10 chest pain rating down his left arm. This comes on the heels of having been admitted on 01/21 and discharged earlier this morning for a low H&H. Pt underwent EGD with no abnormal findings and received 4units fo PRBCs during that admission. Today he states he went home and started having chest pain that waxed and weaned. At its worse if was a 9/10 radiating down him left arm. He returned to the ED where he was found to have changes in anterior leads on his EKG and bumped troponin levels. His case was discussed between Dr. Shepherd and Dr. Rahman; who ultimately decided to take him to the [facility]. Pt has known CAD, having undergone bypass grafting x2 in 2005. Most recent ECHO demonstrated an EF of 30-35% and ischemic cardiomyopathy with anterior anteroseptal and apical wall motion abnormality. Pt previously was seen at [facility] and transferred to [place] for an incarcerated umbilical hernia. There he underwent a bowel resection and hernia repair. Pt has been undergoing hemodialysis since August 2012 for ESRD secondary to decompensated right sided HF. Pt was dialyzed today prior to discharge. Pt denies fever, chills, headache, or change in vision. He does admit to diaphoresis that improved with resolution of pain and use of a bedside fan. Pt denies chest pain, pressure, awareness of tachyarrhythmia, trouble breathing, or cough. He denies abdominal pain above is baseline incisional pain. He denies further weakness, numbness/tingling, or change in bladder habits. He does state that his bowel movements have be a dark tar like color since his abdominal surgery. Past Medical/Surgical History Medical Problems: (1) Acute renal failure syndrome (2) Asthma (3) Benign hypertension (4) Cholecystectomy (5) Chronic obstructive lung disease (6) Coronary artery bypass grafting (7) Diabetes mellitus (8) End stage renal failure on dialysis (9) Heart disease (10) Hepatitis (11) Incarcerated ventral hernia (12) Intermittent atrial fibrillation (13) Myocardial infarction (14) Obstructive sleep apnea syndrome (15) Peritoneal dialysis status (16) Peritonitis associated with peritoneal dialysis (17) Pneumonia (18) Secondary hyperparathyroidism of renal origin Surgical Problems: History of bowel resection History of hernia repair CABG x 2 Cardiac Catheterization 2017 Family History Hypertension Kidney disease Social History Smoking Status: Never Smoker Drug Use: none Marital Status: Housing Status: lives with family Occupation Status: disabled Allergies Coded Allergies: Penicillins (Verified Allergy, Severe, HIVES, 01/24/17) BEE STING (Verified Allergy, Intermediate, SWELLING, 01/24/17) DOES NOT REQUIRE EPIPEN PER FAMILY Home Medications Scheduled Acyclovir (Acyclovir), 400 MG PO BID Albuterol Sulfate (Proair Respiclick), 2 PUFFS INH QAM Aspirin (Aspirin Ec), 81 MG PO QPM B-Complex W/ C & Folic Acid (Renal), 1 CAP PO QAM Calcium Acetate (Phoslo 667 Mg), 667 MG PO TIDM Carvedilol (Coreg), 25 MG PO AMPM Clopidogrel Bisulfate (Clopidogrel), 75 MG PO QAM Fluticasone Prop/Salmeterol (Advair Diskus 250/50 60 Dose), 1 PUFF INH Q12 Furosemide (Lasix), 20 MG PO QAM Hydralazine Hcl (Apresoline), 25 MG PO TID Insulin Aspart (novoLOG INSULIN PUMP ), 1 EA N/A UD Isosorbide Mononitrate Ext Rel (Imdur Ext Rel), 120 MG PO QAM Montelukast Sod (Montelukast Sodium), 10 MG PO QPM Multiple Vitamins W/ Minerals (Prorenal Qd), 1 CAP PO QAM Oxycodone/Acetaminophen 5MG/325MG (Percocet 5MG/325MG), 1 TABLET PO HS Pantoprazole (Pantoprazole Sodium), 40 MG PO QAM Ropinirole (Requip), 2 MG PO QPM Ropinirole Hydrochloride (Requip), 1 MG PO QAM Rosuvastatin Calcium (Crestor), 20 MG PO DAILY Sertraline HCl (Sertraline HCl), 50 MG PO QPM Scheduled PRN Glucagon (Glucagon Emergency Kit), 1 DOSE INJ UD PRN for HYPOGLYCEMIA Lactulose (Chronulac), 1 DOSE PO DIRECTED PRN for Constipation Levalbuterol (Levalbuterol HCl), 1 VIAL NEB TID PRN for COPD Lorazepam (Ativan), 0.5-1 MG PO BID PRN for Anxiety Nitroglycerin (Nitrostat), 0.4 MG UT UD PRN for Chest Pain Ondansetron Hcl (Zofran), 4 MG PO Q6H PRN for Nausea Polyethylene Glycol 3350 (Miralax), 17 GM PO QAM PRN for Constipation Trazodone Hcl (Trazodone), 50 MG PO HS PRN for Sleep Current Inpatient Medications Current Inpatient Medications Medications (Trade) Dose Ordered Sig/Shasha Route Start Time Stop Time Status Last Admin Dose Admin Nitroglycerin (Nitrostat Tab) 0.4 mg Q5M PRN SL 01/24/17 22:00 02/23/17 21:59 01/24/17 22:55 0.4 MG Review of Systems 12 systems reviewed and negative other than previously mentioned in the HPI. Physical Exam Date Time Temp Pulse Resp B/P (MAP) Pulse Ox O2 Delivery O2 Flow Rate FiO2 01/24/17 23:26 90 20 134/83 99 01/24/17 23:08 78 23 138/63 99 Nasal Cannula 2.0 01/24/17 22:52 82 23 135/65 Nasal Cannula 2.0 01/24/17 22:15 82 20 124/56 99 Nasal Cannula 2.0 01/24/17 22:05 88 01/24/17 22:03 100 Nasal Cannula 2.0 01/24/17 21:50 37.3 89 25 136/68 100 Room Air 01/24/17 21:50 100 Room Air Vital Signs - as noted Laboratory Data - as noted Physical Exam: General - NAD, Resting Comfortably in bed in the ED Eyes - PERRL, EOMI No icterus, gaze conjugate ENT - Mucosa moist, no lesions or candidiasis Neck - Supple, trachea midline, no masses or lymphadenopathy, no JVD or bruits Lungs - No paradoxical chest wall movement, clear to auscultation bilaterally, no wheezes, rales, or rhonchi Heart - Reg rate and rhythm, No murmur, rubs, clicks, or gallops appreciated Abdomen - BS present, no bruits noted, tympanic to percussion, soft, nontender, nondistended, no organomegaly; 3 sites of recent incision with surgical norma in place, mild induration around stapled areas; Insulin pump in place Extremities - No edema, pedal pulses intact Neuro - A&O X 4 Strength extremities equal and appropriate bilaterally Reflexes:Normal and equal CN:PERRL, EOMI, no facial asymmetry, uvula/tongue midline Laboratory Results Last 24 Hours Test 01/24/17 22:00 01/24/17 22:07 01/24/17 22:09 White Blood Count 19.24 K/uL Red Blood Count 3.31 M/uL Hemoglobin 9.9 g/dL Hematocrit 29.2 % Mean Corpuscular Volume 88.2 fL Mean Corpuscular Hemoglobin 29.9 pg Mean Corpuscular Hemoglobin Concent 33.9 g/dl Platelet Count 322 K/uL Mean Platelet Volume 11.3 fL Neutrophils (%) (Auto) 85.9 % Lymphocytes (%) (Auto) 6.2 % Monocytes (%) (Auto) 6.2 % Eosinophils (%) (Auto) 0.7 % Basophils (%) (Auto) 0.3 % Neutrophils # (Auto) 16.53 K/uL Lymphocytes # (Auto) 1.20 K/uL Monocytes # (Auto) 1.20 K/uL Eosinophils # (Auto) 0.13 K/uL Basophils # (Auto) 0.05 K/uL RDW Standard Deviation 48.6 fL RDW Coefficient of Variation 15.8 % Immature Granulocyte % (Auto) 0.7 % Immature Granulocyte # (Auto) 0.13 K/uL Prothrombin Time 10.2 SECONDS Prothromb Time International Ratio 1.0 Activated Partial Thromboplast Time 23.8 SECONDS Partial Thromboplastin Ratio 0.9 Sodium Level 133 mmol/L Potassium Level 4.4 mmol/L Chloride Level 98 mmol/L Carbon Dioxide Level 25 mmol/L Anion Gap 10.0 mmol/L 19.0 mmol/L Blood Urea Nitrogen 24 mg/dl Creatinine 2.20 mg/dl Est Creatinine Clear Calc Drug Dose 37.1 ml/min Estimated GFR () 37.7 Estimated GFR (Non- 32.5 BUN/Creatinine Ratio 11.1 Random Glucose 486 mg/dl Calcium Level 8.1 mg/dl Total Creatine Kinase 51 U/L Creatine Kinase MB 1.4 ng/ml Creatine Kinase MB Ratio 2.7 Troponin I 0.244 ng/ml Beta-Hydroxybutyric Acid 5.93 mg/dL Bedside Troponin I 0.170 ng/ml Bedside Hemoglobin 10.5 g/dl Bedside Hematocrit 31 % Bedside Sodium 132 mEq/L Bedside Potassium 4.4 mEq/L Bedside Chloride 96 mEq/L Bedside Total CO2 23 mEq/l Bedside Blood Urea Nitrogen 22 mg/dl Bedside Creatinine 2.0 mg/dl Bedside Glucose (other) 501 mg/dl Bedside Ionized Calcium (Janes) 1.03 mmol/l Diagnostic Results SINGLE VIEW CHEST CLINICAL HISTORY: Atypical chest pain. FINDINGS: An AP, portable, upright chest radiograph is compared to study dated 01/11/2017 and correlated with chest CT dated 04/10/2010. The examination is degraded by portable technique and patient rotation. The patient is status post midline sternotomy. The heart is enlarged and there is atherosclerotic calcification of the thoracic aorta. There is mild pulmonary vascular congestion. Trace pleural effusions are identified. No airspace consolidation is seen typical for pneumonia. No pneumothorax is seen. The skeletal structures are osteopenic. The bony thorax is grossly intact. Degenerative change is noted in the thoracic spine and shoulders. IMPRESSION: 1. Cardiomegaly with evidence of mild congestive failure. 2. Trace pleural effusions. Electronically signed by: Richi Villa M.D. 01/24/2017 10:31 PM Dictated Date/Time: 01/24/2017 10:29 PM Assessment & Plan Cardiac: * Spoke with Dr. Shepherd in regards to cath results. No current stentable lesion. However, progression of CAD was noted. * Per Dr. Shepherd pt will be placed on a nitro-drip for intermittent chest pain with an element of HF. * Last ECHO in 2014 as noted in HPI * Repeat EKG once in ICU and in AM * Trend Troponin * Resume home cardiac medications GI: * Recent admission to [place] for incarcerated umbilical hernia requiring bowel resection and hernia repair. Followed by admission to [facility] for hypotension, weakness and low H&H and discharged this morning. * Sutures in place on abdomen. * AHA DM1 Diet * Restart home medications including PPI * Monitor for changes * GI Prophylaxis: Not indicated. Endocrine: * Known type 1 diabetic * Glucose running >500 in ED, Now 312; Beta-hydroxybutyric acid 5.93 * Will treat like DKA without insulin drip: will obtain Urinalysis, Ketones, and ABG * Plan to start 1/2NSS @ 100 (Corrected sodium 138) * Consult Pharmacy for Glycemic Control: Lantus and SSI Novolog in place * Remove Insulin pump * Monitor BSG q1h until BSG < 200 * Obtain A1C : * Pt on regular scheduled hemodialysis. * Monitor output * Consult Nephrology to follow * Monitor regularly scheduled labs Pulm: * Lungs clear and pt without complaint * Monitor on telemetry * supplemental O2 as needed * Obtain ABG now and VBG with AM labs Neuro: * Pt without pain * May start home meds in morning: * Requip * Sertraline Heme: * Monitor CBC daily * H&H currently stable * No current gross signs of bleeding. DVT: Will hold chemical prophylaxis for now; SCDs ordered Access: 2 PIVs in right arm. Left arm restricted due to dialysis. CCT: 47 minutes; Not including any billable procedures. Thank you for including us in the care of this patient. Please review Dr. Joni Jiang's addendum for further recommendations. I have personally evaluated and examined this patient. I agree with assessment and plan of Yossi Kenyon PA-C.
[2017-01-25] VITALS (25 sets, daily range): BP systolic 105–187; BP diastolic 40–103; PULSE 54–85; TEMP 36.1–36.8; O2SAT 92–99; Ht 162.6 cm; Wt 83.9 kg
--- NOTE | 2017-01-25 00:25 | Procedure Note ---
Post-Mod Sedation Assessment General Date of Moderate Sedation Jan 25, 2017. Vital Signs: Vital Signs Past 12 Hours Date Time Temp Pulse Resp B/P (MAP) Pulse Ox O2 Delivery O2 Flow Rate FiO2 01/24/17 23:26 90 20 134/83 99 01/24/17 23:08 78 23 138/63 99 Nasal Cannula 2.0 01/24/17 22:52 82 23 135/65 Nasal Cannula 2.0 01/24/17 22:15 82 20 124/56 99 Nasal Cannula 2.0 01/24/17 22:05 88 01/24/17 22:03 100 Nasal Cannula 2.0 01/24/17 21:50 37.3 89 25 136/68 100 Room Air 01/24/17 21:50 100 Room Air Review - Discharge Criteria Vital Signs Stable: Yes Alert/Oriented/Conversant: Yes Returned to Baseline Mental St: Yes Nausea Absent/Minimal: Yes Pain/Discomfort/Absent/Minimal: Yes Active Bleeding?: N/A Pt Received D/C Instructions: N/A Prescriptions Given: None Specific Proced. D/C Criteria Distal Pulses Present (Cardiac: Yes Groin site assessed-Card Cath: N/A Voided Prior To Discharge: N/A Discharged Patients Adult Escort/Transportation: Yes
--- NOTE | 2017-01-25 00:25 | Procedure Note ---
Pre-Mod Sedation Assessment General Date of Moderate Sedation: Jan 25, 2017. Vital Signs: Vital Signs Past 12 Hours Date Time Temp Pulse Resp B/P (MAP) Pulse Ox O2 Delivery O2 Flow Rate FiO2 01/24/17 23:26 90 20 134/83 99 01/24/17 23:08 78 23 138/63 99 Nasal Cannula 2.0 01/24/17 22:52 82 23 135/65 Nasal Cannula 2.0 01/24/17 22:15 82 20 124/56 99 Nasal Cannula 2.0 01/24/17 22:05 88 01/24/17 22:03 100 Nasal Cannula 2.0 01/24/17 21:50 37.3 89 25 136/68 100 Room Air 01/24/17 21:50 100 Room Air Review Cardiovascular: regular rate, rhythm, no edema Abdomen: normal bowel sounds, non tender Lungs: chest non-tender, lungs clear Pre-Sedation Airway Assessment Able to Visualize Vocal Cords: No Short Thick Neck: No Hx of Sleep Apnea: No Smoking Status: Never Smoker Mallampati Classification: Class III ASA Classification: Class III Procedure Planning Contraindications-for Mod Sed: None Yes Notes The planned sedation has been discussed with the patient and consent obtained. I have identified the patient, determined the appropriateness of sedation and have assessed the patient immediately prior to the procedure. All medicine(s) and interventions are by my order.
--- NOTE | 2017-01-25 00:26 | Cardiology Progress Note ---
Cardiology Progress Note Date of Service Jan 25, 2017. Cardiology Progress Note Cath films reviewed with Dr Rahman. RCA known to be chronically occluded. HDZ to LAD patent. SVG to OM patent with diffuse kotlik vessel disease for which medical management is recommended. Tx to SICU. Nitro gtt overnight and aspirin. Continue to hold Plavix given recent anemia and intraabdominal surgery. Will likely need repeat HD in morning.
[2017-01-25] MEDS ORDERED: NITROGLYCERIN/D5W 100 MCG/ML 250 ML IV SCH (00:30)
--- NOTE | 2017-01-25 00:53 | Cardiac Catheterization ---
Procedure Note Procedure Date Jan 25, 2017. Pre-Procedure Diagnosis Acute Coronary Syndrome AUC Score 8 Post-Procedure Diagnosis Severe CAD, Elevated Intracardiac Pressures Procedure(s) Performed Coronary Angiography, Left Heart Cath, Bypass Graft Angiography, Femoral Artery Angiography Electric Mule Operator Josiah Sales Representative Consultant(s) Dieter Estimated Blood Loss 10 Medication(s) Fentanyl, Versed, Lidocaine 1% Summary of Findings Indication: ACS Access: 6Fr right femoral artery Catheters: JL4, JR4, MARIANA, LCB, AR1 Findings: LM - Moderate caliber, diffusely diseased with 30% distal stenosis LAD - Small caliber vessel with diffuse disease. 100% occluded in the mid segment. Small diffusely disease 1st diagonal with 80% ostial stenosis. Distal to HDZ anastomosis diffuse mild disease; retrofills small 2nd diagonal Ramus - Very small caliber vessel with severe ostial disease Circumflex - Small caliber vessel, diffusely diseased with 40% mid stenosis; occluded OM1 fills via retrograde via left to left collaterals. OM2 with severe 80% ostial stenosis, 90+% stenosis distal to anastomosis RCA - Known to be occluded proximally. Distal vessels partially fill via left to right collaterals. HDZ to LAD - Widely patent. Mild diffuse distal disease after anastomosis. SVG to OM - Widely patent. 90+ stenosis after anastomosis. LVEDP - 35 Arterial Closure: Mynx Summary: 1. Severe [place] multivessel coronary artery disease - Occluded mid LAD - Occluded proximal RCA - 80% proximal OM2; 90% distal OM2 stenosis after SVG anastomosis 2. Patent HDZ to LAD, SVG to OM2 3. Elevated intracardiac filling pressure Recommendations: Consideration given to intervention to small OM2. As ROSA 3 flow/resolved chest pain, in the setting of recent suspected GI bleed/anemia without clear source and recent abdominal surgery decision was made to treat stenosis medically. In the future when current medical issues are more stable if recurrent angina consideration could be given to POBA of OM stenosis possible BMS. Admit to ICU now for continued monitoring. Start nitro infusion. Hold on additional heparin. Continue ASA. Hold Plavix. Continued ASCVD risk factor modification with Dr. Shepherd Hemodynamics Rest Ao: 128/51/81 Final Ao: 109/44/70 LV: 121/35 Recommendations Medical therapy and/or Counseling Specimens None Radiation Exposure (mGy) 1052 Contrast (mls) 90 Visipaque Fluids (cc crystalloids) 15 ml Drains none Anesthesia moderate (23:36-00:15) Procedural Complication(s) None Disposition ICU ACC Data Cardiac Status Clinical evaluation leading to the procedure CAD Presntation: Non STEMI Anginal Classification: CCS IV Heart Failure: No, NYHA Class: CCS I Cardiogenic Shock w/in 24Hrs: No Cardiac Arrest w/in 24Hrs: No Imaging studies past 6 months: Yes Stress studies past 6 months: No Standard Exercise Stress Test: No Stress Echocardiogram: No Stress Testing w/SPECT MPI: No Coronary Anatomy Dominant: Right LAD (% Stenosis): Mid (100) OM2 (% Stenosis): Proximal (80), Mid (90) RCA (% Stenosis): Proximal (100) Grafts - LAD (%): Normal Grafts - Circumflex (%): Normal Diagnostic Physician's Name: Terry Rahman MD Status: Emergency Closure Device Percutaneous Entry Location: Femoral Closure Device: Mynx Recommendations: Medical therapy and/or Counseling Intraprocedure Events Significant Dissection: No Perforation: No
[2017-01-25] MEDS ORDERED: SODIUM CHLORIDE 0.45% 1000ML 1,000 ML IV SCH (00:56)
[2017-01-25] MEDS ORDERED: MODERATE STRESS LEVEL ONE (01:00)
[2017-01-25] MEDS ORDERED: LORAZEPAM 1 MG TAB PO PRN (01:00)
[2017-01-25] MEDS ORDERED: TRAZODONE HCL 50 MG TAB PO PRN (01:00)
[2017-01-25] MEDS ORDERED: DC ALL PREVIOUSLY ORDERED DIABETES MEDS ONE ×2 (01:00→07:15)
[2017-01-25] MEDS ORDERED: NITROGLYCERIN 0.4 MG SL PER TAB CHARGE SL PRN (01:00)
[2017-01-25] MEDS ORDERED: LEVALBUTEROL 1.25MG/3ML NEB INH PRN (01:00)
[2017-01-25] MEDS ORDERED: HYDROmorphone INJ 1 MG/ML SYR IV PRN (01:00)
[2017-01-25] MEDS ORDERED: ONDANSETRON 4 MG TAB PO PRN (01:00)
[2017-01-25] MEDS ORDERED: DKA GOAL RANGE 150-250 mg/dl 1 EA ONE (01:00)
[2017-01-25] MEDS ORDERED: INSULIN GLARGINE SOLOSTAR 100 UNITS/ML 3 ML PEN SC STA (01:36)
[2017-01-25] MEDS ORDERED: PHARMACY GLYCEMIC MGMT CONSULT PRN (01:45)
[2017-01-25] MEDS ORDERED: INSULIN ASPART 100 UNITS/ML 3 ML PEN SC SCH ×4 (02:00→09:00)
[2017-01-25] MEDS ORDERED: GLUCOSE 10 TABS/TUBE PO PRN (02:00)
[2017-01-25] MEDS ORDERED: GLUCOSE 40% GEL 15 GM TUBE PO PRN (02:00)
[2017-01-25] MEDS ORDERED: DEXTROSE 50% 50 ML SYR IV PRN (02:00)
[2017-01-25] MEDS ORDERED: GLUCAGON FOR INJ 1 MG VIAL SQ PRN (02:00)
[2017-01-25] MEDS ORDERED: POLYETHYLENE (MIRALAX) 17 GM PACK PO PRN (02:00)
--- NOTE | 2017-01-25 02:06 | History and Physical ---
History & Physical Date & Time of Service: Jan 25, 2017 at 01:12 Chief Complaint: ACS Primary Care Physician: Arielle Whittaker MD History of Present Illness 56 yo male with DMI on insulin pump, Severe CAD s/p CABGX2, ischemic chronic systolic CHF, PAF not on AC, ESRD on HD, with recent incarcerated ventral hernia repair, recent admission to [facility] for GI bleeding discharged this morning after receiving a total of 4 units of PRBC transfusion presented to the ER with complaints of waxing and waning chest pain. He had recently presented to [facility] for abdominal discomfort and transferred to [facility] and underwent partial small bowel resection and hernia repair for an incarcerated femoral hernia on 01/12/17. He was readmitted at [facility] on 01/21/17 for GI bleed and a hemoglobin of 7.8 g per DL. He underwent an EGD this morning which was unremarkable. He received a total of 4 units of PRBC transfusion and was discharged home. He returned to the ER with complaints of waxing and waning chest pain, 9/10 in severity and was found to have new ST segment elevation on EKG. His pain resolved with sublingual nitroglycerin and fentanyl. Repeat EKG revealed anterior ST elevation and lateral ST depression with return of his chest pain. Heart alert was called and he was taken to qc lab technician. Past Medical/Surgical History Medical Problems: (1) Acute renal failure syndrome Status: Resolved (2) Asthma Status: Chronic (3) Benign hypertension Status: Chronic (4) Cholecystectomy Status: Resolved (5) Chronic obstructive lung disease Status: Chronic (6) Coronary artery bypass grafting Status: Resolved (7) Diabetes mellitus Status: Chronic (8) End stage renal failure on dialysis Status: Chronic (9) Heart disease Status: Chronic (10) Myocardial infarction Status: Chronic (11) Obstructive sleep apnea syndrome Status: Chronic (12) Peritoneal dialysis status Status: Chronic (13) Pneumonia Status: Chronic Surgical Problems: (1) History of bowel resection Status: Resolved (2) History of hernia repair Status: Resolved Family History Hypertension Kidney disease Social History Smoking Status: Never Smoker Drug Use: none Marital Status: Housing status: lives with family Occupational Status: disabled Immunizations History of Influenza Vaccine: Yes Influenza Vaccine Date: May 10, 2012 History of Tetanus Vaccine?: Yes Tetanus Immunization Date: May 08, 2006 History of Pneumococcal: Yes Pneumococcal Date: May 10, 2006 History of Hepatitis B Vaccine: Yes Multi-Drug Resistant Organisms History of MDRO: No Allergies Coded Allergies: Penicillins (Verified Allergy, Severe, HIVES, 01/24/17) BEE STING (Verified Allergy, Intermediate, SWELLING, 01/24/17) DOES NOT REQUIRE EPIPEN PER FAMILY Home Medications Scheduled Acyclovir (Acyclovir), 400 MG PO BID Albuterol Sulfate (Proair Respiclick), 2 PUFFS INH QAM Aspirin (Aspirin Ec), 81 MG PO QPM B-Complex W/ C & Folic Acid (Renal), 1 CAP PO QAM Calcium Acetate (Phoslo 667 Mg), 667 MG PO TIDM Carvedilol (Coreg), 25 MG PO AMPM Clopidogrel Bisulfate (Clopidogrel), 75 MG PO QAM Fluticasone Prop/Salmeterol (Advair Diskus 250/50 60 Dose), 1 PUFF INH Q12 Furosemide (Lasix), 20 MG PO QAM Hydralazine Hcl (Apresoline), 25 MG PO TID Insulin Aspart (novoLOG INSULIN PUMP ), 1 EA N/A UD Isosorbide Mononitrate Ext Rel (Imdur Ext Rel), 120 MG PO QAM Montelukast Sod (Montelukast Sodium), 10 MG PO QPM Multiple Vitamins W/ Minerals (Prorenal Qd), 1 CAP PO QAM Oxycodone/Acetaminophen 5MG/325MG (Percocet 5MG/325MG), 1 TABLET PO HS Pantoprazole (Pantoprazole Sodium), 40 MG PO QAM Ropinirole (Requip), 2 MG PO QPM Ropinirole Hydrochloride (Requip), 1 MG PO QAM Rosuvastatin Calcium (Crestor), 20 MG PO DAILY Sertraline HCl (Sertraline HCl), 50 MG PO QPM Scheduled PRN Glucagon (Glucagon Emergency Kit), 1 DOSE INJ UD PRN for HYPOGLYCEMIA Lactulose (Chronulac), 1 DOSE PO DIRECTED PRN for Constipation Levalbuterol (Levalbuterol HCl), 1 VIAL NEB TID PRN for COPD Lorazepam (Ativan), 0.5-1 MG PO BID PRN for Anxiety Nitroglycerin (Nitrostat), 0.4 MG UT UD PRN for Chest Pain Ondansetron Hcl (Zofran), 4 MG PO Q6H PRN for Nausea Polyethylene Glycol 3350 (Miralax), 17 GM PO QAM PRN for Constipation Trazodone Hcl (Trazodone), 50 MG PO HS PRN for Sleep Review of Systems Constitutional: No fever, No chills Eyes: No worsening of vision ENT: No hearing loss Respiratory: No cough, No sputum Cardiovascular: No chest pain Abdomen: + GI bleeding (balck tarry stool morning), No pain, No nausea Musculoskeletal: No joint pain Genitourinary - Male: No hematuria Neurologic: No memory loss Psychiatric: No depression symptoms Endocrine: No fatigue Physical Exam Vital Signs Date Time Temp Pulse Resp B/P (MAP) Pulse Ox O2 Delivery O2 Flow Rate FiO2 01/25/17 00:48 36.1 69 18 139/65 95 Room Air 01/25/17 00:27 76 16 106/85 95 Room Air 01/25/17 00:15 76 16 135/89 95 Room Air 01/24/17 23:26 90 20 134/83 99 01/24/17 23:08 78 23 138/63 99 Nasal Cannula 2.0 01/24/17 22:52 82 23 135/65 Nasal Cannula 2.0 01/24/17 22:15 82 20 124/56 99 Nasal Cannula 2.0 01/24/17 22:05 88 01/24/17 22:03 100 Nasal Cannula 2.0 01/24/17 21:50 37.3 89 25 136/68 100 Room Air 01/24/17 21:50 100 Room Air General Appearance: WD/WN, no apparent distress Head: normocephalic ENT: hearing grossly normal Neck: supple Respiratory/Chest: chest non-tender, lungs clear, normal breath sounds, no accessory muscle use Cardiovascular: regular rate, rhythm Abdomen/GI: normal bowel sounds, + pertinent finding (norma in the mid abdominal area ) Extremities/Musculoskelatal: + pedal edema (trace) Neurologic/Psych: alert, normal mood/affect, oriented x 3 Diagnostics Laboratory Results Results Past 24 Hours Test 01/24/17 22:00 01/24/17 22:07 01/24/17 22:09 01/25/17 00:41 Range/Units White Blood Count 19.24 4.8-10.8 K/uL Red Blood Count 3.31 4.7-6.1 M/uL Hemoglobin 9.9 14.0-18.0 g/dL Hematocrit 29.2 42-52 % Mean Corpuscular Volume 88.2 80-100 fL Mean Corpuscular Hemoglobin 29.9 25-34 pg Mean Corpuscular Hemoglobin Concent 33.9 32-36 g/dl Platelet Count 322 130-400 K/uL Mean Platelet Volume 11.3 7.4-10.4 fL Neutrophils (%) (Auto) 85.9 % Lymphocytes (%) (Auto) 6.2 % Monocytes (%) (Auto) 6.2 % Eosinophils (%) (Auto) 0.7 % Basophils (%) (Auto) 0.3 % Neutrophils # (Auto) 16.53 1.4-6.5 K/uL Lymphocytes # (Auto) 1.20 1.2-3.4 K/uL Monocytes # (Auto) 1.20 0.11-0.59 K/uL Eosinophils # (Auto) 0.13 0-0.5 K/uL Basophils # (Auto) 0.05 0-0.2 K/uL RDW Standard Deviation 48.6 36.4-46.3 fL RDW Coefficient of Variation 15.8 11.5-14.5 % Immature Granulocyte % (Auto) 0.7 % Immature Granulocyte # (Auto) 0.13 0.00-0.02 K/uL Prothrombin Time 10.2 9.0-12.0 SECONDS Prothromb Time International Ratio 1.0 0.9-1.1 Activated Partial Thromboplast Time 23.8 21.0-31.0 SECONDS Partial Thromboplastin Ratio 0.9 Sodium Level 133 136-145 mmol/L Potassium Level 4.4 3.5-5.1 mmol/L Chloride Level 98 98-107 mmol/L Carbon Dioxide Level 25 21-32 mmol/L Anion Gap 10.0 19.0 16-25 mmol/L Blood Urea Nitrogen 24 7-18 mg/dl Creatinine 2.20 0.60-1.40 mg/dl Est Creatinine Clear Calc Drug Dose 37.1 ml/min Estimated GFR () 37.7 Estimated GFR (Non- 32.5 BUN/Creatinine Ratio 11.1 10-20 Random Glucose 486 70-99 mg/dl Calcium Level 8.1 8.5-10.1 mg/dl Total Creatine Kinase 51 39-308 U/L Creatine Kinase MB 1.4 0.5-3.6 ng/ml Creatine Kinase MB Ratio 2.7 0-3.0 Troponin I 0.244 0-0.045 ng/ml Beta-Hydroxybutyric Acid 5.93 0.2-2.81 mg/dL Bedside Troponin I 0.170 0-0.045 ng/ml Bedside Hemoglobin 10.5 14.0-18.0 g/dl Bedside Hematocrit 31 42-52 % Bedside Sodium 132 135-144 mEq/L Bedside Potassium 4.4 3.3-5.0 mEq/L Bedside Chloride 96 101-112 mEq/L Bedside Total CO2 23 24-31 mEq/l Bedside Blood Urea Nitrogen 22 7-18 mg/dl Bedside Creatinine 2.0 0.6-1.3 mg/dl Bedside Glucose (other) 501 70-99 mg/dl Bedside Ionized Calcium (Janes) 1.03 1.12-1.32 mmol/l Bedside Glucose 312 70-99 mg/dl Test 01/25/17 00:56 Range/Units Diagnostic Radiology [~ rep ct add3]] SINGLE VIEW CHEST CLINICAL HISTORY: Atypical chest pain. FINDINGS: An AP, portable, upright chest radiograph is compared to study dated 01/11/2017 and correlated with chest CT dated 04/10/2010. The examination is degraded by portable technique and patient rotation. The patient is status post midline sternotomy. The heart is enlarged and there is atherosclerotic calcification of the thoracic aorta. There is mild pulmonary vascular congestion. Trace pleural effusions are identified. No airspace consolidation is seen typical for pneumonia. No pneumothorax is seen. The skeletal structures are osteopenic. The bony thorax is grossly intact. Degenerative change is noted in the thoracic spine and shoulders. IMPRESSION: 1. Cardiomegaly with evidence of mild congestive failure. 2. Trace pleural effusions. EKG Normal sinus rhythm Anteroseptal infarct (cited on or before 04-OCT-2011) Marked ST abnormality, possible lateral subendocardial injury Abnormal ECG When compared with ECG of 24-JAN-2017 21:50, (unconfirmed) T wave inversion no longer evident in Inferior leads Normal sinus rhythm Rightward axis Anteroseptal infarct (cited on or before 04-OCT-2011) T wave abnormality, consider inferior ischemia ACUTE CT / STEMI Abnormal ECG When compared with ECG of 24-JAN-2017 22:56, (unconfirmed) Questionable change in initial forces of Anterior leads Impression Assessment and Plan Resident Physician Supervision Note: Pt seen/examined independently. I discussed the case with the resident and agree with the findings and plan as documented in the note. Any exceptions or clarifications are listed here. All orders entered by myself at the time of admission. 56 y/o M ESRD, CAD, recent GI bleed and anemia requiring tranfusions, recent peritonitis related to peritoneal dialysis - recent incarcerated ventral hernia requiring surgery which was performed at [facility]. He was DCd from the hospital one day prior. Pt is known to me from previous admission. Presented to ER with persistent CP - diagnosed with STEMI and proceeded to qc lab technician. Widespread disease present without distinct occlusion aside from RCA branch which was deemed high risk intervention and of questionable benefit. Is being managed medically per his low pressure boiler operator. Pt has responded well to NTG and is pain-free on admission. OE: AAO x 3 S1,2 R CTAB [place] with mild surrounding erythema - no exudate at central abdomen site of recent surgery No CCE P: -Medical management of CAD/CT. Cardiology following - given dose Heparin prior to qc lab technician , Statin , B claudia , ASA - can consider full dose anticoagulation however pt may have an active GI bleed as he continues to describe black stools -ESRD - nephrology consulted - switched from peritoneal to hemodialysis following recent surgery -DM - yperglycemic on arrival - disabled pump for scale coverage and provided with Lantus -GI bleed - trend Hb - transfuse to keep over 10 per cardio Documented By: Maximiliano Briseno FOLLOW UP VISIT: Keep any scheduled doctor appointments.56 yo male with DMI on insulin pump, Severe CAD s/p CABGX2, ischemic chronic systolic CHF, PAF not on AC, ESRD on HD , with recent incarcerated ventral hernia repair, recent admission to [facility] for GI bleeding discharged this morning after receiving a total of 4 units of PRBC transfusion presented to the ER with complaints of waxing and waning chest pain. STEMI status post cardiac catheterization: History of Severe CAD - EKG: ST elevation in leads V2 and V3 and ST depression in lateral leads - Cardiac cath: 1. Severe [place] multivessel coronary artery disease - Occluded mid LAD - Occluded proximal RCA - 80% proximal OM2; 90% distal OM2 stenosis after SVG anastomosis 2. Patent HDZ to LAD, SVG to OM2 3. Elevated intracardiac filling pressure - Started on nitroglycerin infusion - Continue aspirin. Plavix has been held - Heparin also has been held considering recent GI bleed and surgery - Troponins trended - Continue CrestorShaila Diabetes mellitus type 1 on insulin pump: - Blood sugar on presentation 486-->501--302-->293 - Continue IV fluids and insulin sliding scale - May consider to restart insulin pump tomorrow - Hemoglobin A1c 7.9 Anemia secondary to GI bleeding status post 4 units PRBC transfusion during last admission( in this last week) - Hemoglobin on presentation 9.9 - EGD unremarkable - Monitor H&H - Hemoccult stool pending ESRD on HD: - Consulted Nephrology - Received inpatient dialysis on 01/21- to continue //Mon schedule - Last dialysis was this morning Hypertension: - Continue Carvedilol 25 mg BID, Furosemide 20 mg QAM, Hydralazine 25 mg TID, and Imdur ER 20 mg QAM Restless leg syndrome: - Continue Ropinirole 2 mg by mouth every afternoon and 1 mg by mouth QAM Asthma: - Continue Albuterol HFA, Advair Diskus, and Montelukast Depression: - Continue Zoloft DVT prophylaxis: SCDs Chemical anticoagulation contraindicated considering anemia Full code Disposition: Admitted to ICU Level of Care Critical Care Advanced Directives Existing Living Will: No Existing Power of Power Nut Runner Operator: No Resuscitation Status FULL RESUSCITATION VTE Prophylaxis VTE Risk Assessment Done? Y/N: Yes Risk Level: Moderate Given or contraindicated: SCD's Resident Tracking Resident Involvement: Resident Care Provided Care Provided: Adult Hospital Medicine
[2017-01-25 02:20] LABS: HEMATOCRIT 24.9 % (42-52)
[2017-01-25] MEDS ORDERED: NURSING VERBAL MED ORDER ONE (02:45)
[2017-01-25] MEDS ORDERED: OXYCODONE/ACETAMINOPHEN 5-325 TAB PO ONE (03:00)
[2017-01-25] MEDS ORDERED: ROPINIROLE HCL 1 MG TAB PO ONE (03:00)
[2017-01-25 04:09] LABS: HEMATOCRIT 24.1 % (42-52)
[2017-01-25] MEDS: ONDANSETRON INJ 2 MG/ML 2 ML VIAL IV PRN ×2 (05:30→08:57)
[2017-01-25] MEDS ORDERED: METOCLOPRAMIDE HCL INJ 5 MG/ML 2 ML VIAL IV STA (05:58)
[2017-01-25 06:12] LABS: BUN/CREATININE RATIO 14.4 (10-20); CALCIUM 7.7 mg/dl (8.5-10.1); CREATININE 2.2 mg/dl (0.60-1.40); POTASSIUM 3.9 mmol/L (3.5-5.1)
[2017-01-25 06:24] LABS: PHOSPHORUS 2.8 mg/dl (2.5-4.9)
[2017-01-25 07:06] LABS: ESTIMATED AVERAGE GLUCOSE 160 mg/dl; HA1C FLAG Normal (Normal)
--- NOTE | 2017-01-25 07:06 | Critical Care Progress Note ---
Critical Care Progress Note Date of Service Jan 25, 2017. ICU Day ICU Day Number: [address] Jiang Subjective Feels nauseated today, but denies chest pain. Had Zofran and [place] and still feels nauseated. Threw up around 6AM. Consented for blood. Objective GENERAL: Awake, alert, well-appearing, mild distress, pale HENT: Normocephalic, atraumatic. Oropharynx unremarkable. EYES: Normal conjunctiva. Sclera non-icteric. NECK: Supple. No nuchal rigidity. FROM. No JVD. RESPIRATORY: Clear to auscultation. CARDIAC: Regular rate, normal rhythm. Extremities warm and well perfused. Pulses equal. ABDOMEN: Soft, non-distended. No tenderness to palpation. No rebound or guarding. No masses. RECTAL: Deferred. MUSCULOSKELETAL: Chest examination reveals no tenderness. The back is symmetrical on inspection without obvious abnormality. There is no CVA tenderness to palpation. No joint edema. LOWER EXTREMITIES: Calves are equal size bilaterally and non-tender. No edema. No discoloration. NEURO: Normal sensorium. No sensory or motor deficits noted. SKIN: PAle Current SOFA Score SOFA Score Response (Comments) Value Platelets (x10) > 150 0 Bilirubin (mg/dL) < 1.2 0 Miguel Angel Coma Score 15 0 Level of Hypotension No Hypotension 0 Creatinine (mg/dL) 2.0 - 3.4 2 Total 2 Assessment & Plan HEME - With Angina / CAD, will transfuse with goal up to 10 (further 2 units PRBC today to be transfused, hold 2 units at all times) - Pt consented this AM - No chemical DVT prophylaxis at this point, has TEDs CVS - Dr Shepherd from Cardiology consulted - Repeat echo, EKGs - Continue Aspirin, DC Plavix - If worsens, would be for balloon pump GI: - NPO - Concerned for anastomotic leak / potential intraluminal bleed - Has had nausea for about 13 days, was only expected for 1 week - PPI restarted ENDO: - Type 1 DM - Will start on insulin drip with range glc 140-180 - HbA1c 7.2% ID - Continue home acyclovir - Will start Vanc and Zosyn (pt is on dialysis), for anastomotic leak RENAL: - Dialysis patient, had dialysis on 01/23/17 - Nephro consulted - Monitor BMP PULM: - Supplemental O2 as needed to keep sats > 92% - Continue to monitor NEURO: - Will restart Requip - STOP sertraline as this can worsen GI bleeds ACCESS: 2 peripheral IVs in R arm, L arm restricted due to dialysis fistula CODE STATUS: FULL DISPO: Remain in ICU today, but we BELIEVE THIS PATIENT SHOULD BE TRANSFERRED TO [facility] Resident Physician Supervision Note: Dr. Tang was resident physician during care of patient. I separately evaluated patient and did history and exam. I discussed the case with the resident and generally agree with the findings and plan. Patient critically ill due to subacute ST elevation OK secondary to acute blood loss. Concerning the acute blood losses from the lower GI tract due to a intraluminal bleed, or possible anastomotic leak. Patient has had continued bleeding for approximately 13 days from the original surgery. Coronary artery disease not amenable to percutaneous intervention. I discussed the case with cardiology, gastroenterology, surgery at all in agreement that the patient should be transferred to [facility] for further evaluation by primary surgical team. I have personally spent 45 minutes of critical care time in the direct management of this patient. This is a life/limb threatening event. This includes time spent evaluating patient, direct bedside care, chart review, placing orders, interpretation of diagnostic studies, discussion with consultants, patient, and family members, as well as other required patient management activities. This time is exclusive of all separately billable procedures, and teaching time and separate from and in addition to any other critical care service time. Documented By: Joni Jiang DO Consults & Procedures Consultants: GI, Surgery, Cardiology Procedures: EGD in last admission, 01/24/17 Data Medications: Current Inpatient Medications Medications (Trade) Dose Ordered Sig/Shasha Route Start Time Stop Time Status Last Admin Dose Admin Nitroglycerin/ Dextrose 250 ml @ 0 mls/hr Q0M IV 01/25/17 00:30 02/24/17 00:29 01/25/17 01:05 12 MLS/HR Aspirin (Ecotrin Tab) 81 mg QAM PO 01/25/17 09:00 02/24/17 08:59 Miscellaneous Information (Consult Glycemic Management Pharmacy) 1 ea UD PRN N/A 01/25/17 01:45 02/24/17 01:44 Insulin Aspart (novoLOG ASPART) SLIDING SCALE G... ACHS SC 01/25/17 06:45 02/24/17 06:44 01/25/17 06:31 3 UNITS Acyclovir (Zovirax Tab) 400 mg BID PO 01/25/17 09:00 02/04/17 08:59 Vitamin B Complex/ Vit C/Folic Acid (Nephrocaps) 1 cap QAM PO 01/25/17 09:00 02/24/17 08:59 Calcium Acetate (Phoslo Cap) 667 mg TIDM PO 01/25/17 07:15 02/24/17 07:14 Carvedilol (Coreg Tab) 25 mg BID PO 01/25/17 09:00 02/24/17 08:59 Salmeterol Xinafoate/ Fluticasone (Advair Diskus 250/50 Inh) 1 puff Q12 INH 01/25/17 09:00 02/24/17 08:59 Hydralazine HCl (Apresoline Tab) 25 mg TID PO 01/25/17 09:00 02/24/17 08:59 Levalbuterol (Xopenex 1.25MG/ 3ML Neb) 1.25 mg TID PRN INH 01/25/17 01:00 02/24/17 00:59 Lorazepam (Ativan Tab) 1 mg BID PRN PO 01/25/17 01:00 02/24/17 00:59 Montelukast Sodium (Singulair Tab) 10 mg QPM PO 01/25/17 21:00 02/24/17 20:59 Ondansetron HCl (Zofran Tab) 4 mg Q6H PRN PO 01/25/17 01:00 02/24/17 00:59 Oxycodone/ Acetaminophen (Percocet 5-325mg Tab) 1 tab HS PO 01/25/17 21:00 02/08/17 20:59 Ropinirole HCl (Requip Tab) 2 mg QPM PO 01/25/17 21:00 02/24/17 20:59 Ropinirole HCl (Requip Tab) 1 mg QAM PO 01/25/17 09:00 02/24/17 08:59 Rosuvastatin Calcium (Crestor Tab) 20 mg DAILY PO 01/25/17 09:00 02/24/17 08:59 Sertraline HCl (Zoloft Tab) 50 mg QPM PO 01/25/17 21:00 02/24/17 20:59 Trazodone HCl (Desyrel Tab) 50 mg HS PRN PO 01/25/17 01:00 02/24/17 00:59 Polyethylene (Miralax Powder Packet) 17 gm DAILY PRN PO 01/25/17 02:00 02/24/17 01:59 Nitroglycerin (Nitrostat Tab) 0.4 mg UD PRN SL 01/25/17 01:00 02/24/17 00:59 Ondansetron HCl (Zofran Inj) 4 mg Q6H PRN IV 01/25/17 01:00 02/24/17 00:59 01/25/17 05:30 4 MG Hydromorphone HCl (Dilaudid Inj) 0.5 mg Q4H PRN IV 01/25/17 01:00 02/08/17 00:59 Glucose (Glucose 40% Gel) 15-30 GRAMS 15 GRAMS... UD PRN PO 01/25/17 02:00 02/24/17 01:59 Glucose (Glucose Chew Tab) 4-8 Tablets 4 Tabl... UD PRN PO 01/25/17 02:00 02/24/17 01:59 Dextrose (Dextrose 50% 50ML Syringe) 25-50ML OF 50% DW IV FOR... UD PRN IV 01/25/17 02:00 02/24/17 01:59 Glucagon (Glucagon Inj) 1 mg UD PRN SQ 01/25/17 02:00 02/24/17 01:59 Pantoprazole Sodium 40 mg/ Syringe 10 ml @ 5 mls/min DAILY@1100 IV 01/25/17 11:00 02/24/17 10:59 Vital Signs: Date Time Temp Pulse Resp B/P (MAP) Pulse Ox O2 Delivery O2 Flow Rate FiO2 01/25/17 05:02 54 22 107/40 (62) 95 01/25/17 04:47 57 18 114/53 (73) 94 01/25/17 04:32 57 17 129/51 (77) 92 01/25/17 04:17 61 17 124/51 (75) 93 01/25/17 04:11 36.8 62 21 113/54 (73) 94 01/25/17 04:00 95 Room Air 01/25/17 03:47 60 17 135/47 (76) 92 01/25/17 03:32 62 17 113/55 (74) 97 01/25/17 03:17 60 22 122/57 (78) 97 01/25/17 03:02 62 15 132/53 (79) 95 01/25/17 02:32 67 14 145/62 (89) 95 01/25/17 02:17 68 18 140/62 (88) 95 01/25/17 02:02 70 20 150/63 (92) 94 01/25/17 01:47 65 19 105/67 (80) 96 01/25/17 01:32 66 17 144/57 (86) 93 01/25/17 01:32 66 17 144/57 (86) 93 Room Air 01/25/17 01:17 70 21 135/58 (83) 93 Room Air 01/25/17 01:17 70 21 135/58 (83) 93 01/25/17 01:06 36.8 67 16 136/55 (82) 92 01/25/17 01:06 67 16 136/55 (82) 92 Room Air 01/25/17 01:06 67 16 136/55 (82) 92 01/25/17 00:48 36.1 69 18 139/65 95 Room Air 01/25/17 00:27 76 16 106/85 95 Room Air 01/25/17 00:15 76 16 135/89 95 Room Air 01/24/17 23:26 90 20 134/83 99 01/24/17 23:08 78 23 138/63 99 Nasal Cannula 2.0 01/24/17 22:52 82 23 135/65 Nasal Cannula 2.0 01/24/17 22:15 82 20 124/56 99 Nasal Cannula 2.0 01/24/17 22:05 88 01/24/17 22:03 100 Nasal Cannula 2.0 01/24/17 21:50 37.3 89 25 136/68 100 Room Air 01/24/17 21:50 100 Room Air Laboratory Results: Last 24 Hours Test 01/24/17 22:00 01/24/17 22:07 01/24/17 22:09 01/25/17 00:00 White Blood Count 19.24 K/uL Red Blood Count 3.31 M/uL Hemoglobin 9.9 g/dL Hematocrit 29.2 % Mean Corpuscular Volume 88.2 fL Mean Corpuscular Hemoglobin 29.9 pg Mean Corpuscular Hemoglobin Concent 33.9 g/dl Platelet Count 322 K/uL Mean Platelet Volume 11.3 fL Neutrophils (%) (Auto) 85.9 % Lymphocytes (%) (Auto) 6.2 % Monocytes (%) (Auto) 6.2 % Eosinophils (%) (Auto) 0.7 % Basophils (%) (Auto) 0.3 % Neutrophils # (Auto) 16.53 K/uL Lymphocytes # (Auto) 1.20 K/uL Monocytes # (Auto) 1.20 K/uL Eosinophils # (Auto) 0.13 K/uL Basophils # (Auto) 0.05 K/uL RDW Standard Deviation 48.6 fL RDW Coefficient of Variation 15.8 % Immature Granulocyte % (Auto) 0.7 % Immature Granulocyte # (Auto) 0.13 K/uL Prothrombin Time 10.2 SECONDS Prothromb Time International Ratio 1.0 Activated Partial Thromboplast Time 23.8 SECONDS Partial Thromboplastin Ratio 0.9 Sodium Level 133 mmol/L Potassium Level 4.4 mmol/L Chloride Level 98 mmol/L Carbon Dioxide Level 25 mmol/L Anion Gap 10.0 mmol/L 19.0 mmol/L Blood Urea Nitrogen 24 mg/dl Creatinine 2.20 mg/dl Est Creatinine Clear Calc Drug Dose 37.1 ml/min Estimated GFR () 37.7 Estimated GFR (Non- 32.5 BUN/Creatinine Ratio 11.1 Random Glucose 486 mg/dl Calcium Level 8.1 mg/dl Total Creatine Kinase 51 U/L Creatine Kinase MB 1.4 ng/ml Creatine Kinase MB Ratio 2.7 Troponin I 0.244 ng/ml Beta-Hydroxybutyric Acid 5.93 mg/dL Bedside Troponin I 0.170 ng/ml Bedside Hemoglobin 10.5 g/dl Bedside Hematocrit 31 % Bedside Sodium 132 mEq/L Bedside Potassium 4.4 mEq/L Bedside Chloride 96 mEq/L Bedside Total CO2 23 mEq/l Bedside Blood Urea Nitrogen 22 mg/dl Bedside Creatinine 2.0 mg/dl Bedside Glucose (other) 501 mg/dl Bedside Ionized Calcium (Janes) 1.03 mmol/l Stool Occult Blood POSITIVE Test 01/25/17 00:41 01/25/17 01:42 01/25/17 02:10 01/25/17 02:13 Bedside Glucose 312 mg/dl 293 mg/dl 263 mg/dl Hemoglobin 8.6 g/dL Hematocrit 24.9 % Test 01/25/17 03:14 01/25/17 04:00 01/25/17 05:27 01/25/17 05:34 Bedside Glucose 229 mg/dl 255 mg/dl Hemoglobin 8.2 g/dL Hematocrit 24.1 % Venous Blood pH 7.43 Sodium Level 138 mmol/L Potassium Level 3.9 mmol/L Chloride Level 102 mmol/L Carbon Dioxide Level 27 mmol/L Anion Gap 9.0 mmol/L Blood Urea Nitrogen 32 mg/dl Creatinine 2.20 mg/dl Est Creatinine Clear Calc Drug Dose 37.1 ml/min Estimated GFR () 37.7 Estimated GFR (Non- 32.5 BUN/Creatinine Ratio 14.4 Random Glucose 248 mg/dl Calcium Level 7.7 mg/dl Phosphorus Level 2.8 mg/dl Magnesium Level 2.0 mg/dl Resident Tracking Resident Involvement: Resident Care Provided Care Provided: Adult Hospital Medicine
[2017-01-25] MEDS ORDERED: PHARMACY GLYCEMIC MGMT CONSULT STA (07:09)
[2017-01-25] MEDS ORDERED: INSULIN PROTOCOL GOAL RANGE ONE (07:15)
[2017-01-25] MEDS ORDERED: CALCIUM ACETATE 667MG GELCAP PO SCH (07:15)
[2017-01-25] MEDS ORDERED: SEVERE STRESS LEVEL ONE (07:15)
[2017-01-25] MEDS ORDERED: INSULIN IV INFUSION PROTOCOL SCH (07:22)
[2017-01-25] MEDS ORDERED: INSULIN REGULAR 250 UNITS in SODIUM CHLORIDE 0.9% 250ML 250 ML IV SCH (08:00)
--- NOTE | 2017-01-25 08:54 | Gastrointestinal Consultation ---
Gastrointestinal Consultation Date of Consultation: Jan 25, 2017 Attending Physician: Maximiliano Consulting Physician: Dieter Reason for Consultation: anemia, heme + stool History of Present Illness Patient is a 56 year old male with PMH significant for CAD s/p CABGX2, ischemic chronic systolic CHF, T2DM, PAF not on AC, ESRD on HD, s/p bowel resection for incarcerated hernia who was recently admitted to [facility] for suspected anastomotic leak with from bowel repair s/p negative EGD. He received 4 units during hospitalization. Pt was feeling well and discharged. He began experiencing chest pain with radiation down his left arm a few hours after discharge. He went to dialysis where pains remained constant and unchanged. Presented to the ED for evaluation as this felt exactly the same as previous KS. Denied associated symptoms - no SOB, syncope, nausea, palpitations. Cardiology was consulted and following for acute coronary syndrome. GI is consulted for heme + stools. Pt seen and examined this AM. He tells me he had bouts of abdominal pain and nausea this AM. Continues with dark, heme + stools. EGD yesterday was negative and GI blood loss thought to be secondary to anastomotic leak. EGD 01/24/17: Normal esophagus. Normal stomach. Normal examined duodenum. No specimens collected. No signs of upper GI bleeding in the examined part of his upper GI tract. Past Medical/Surgical History Medical Problems: (1) Acute coronary syndrome Status: Acute (2) Acute lower GI bleeding Status: Acute (3) Diabetes mellitus Status: Acute (4) Dialysis-associated peritonitis Status: Acute (5) Flank pain Status: Acute (6) History of coronary artery disease Status: Acute (7) Hyperglycemia Status: Acute (8) Peritoneal dialysis catheter in place Status: Acute (9) SBO (small bowel obstruction) Status: Acute (10) STEMI (ST elevation myocardial infarction) Status: Acute (11) Substernal chest pain Status: Acute (12) Symptomatic anemia Status: Acute (13) Ventral hernia Status: Acute Past Medical History: CAD s/p CABGX2, ischemic chronic systolic CHF, T2DM, PAF not on AC, ESRD on HD, s/p bowel resection Past Surgical History: History of bowel resection, History of hernia repair, CABG x 2, Cardiac Catheterization 2017 Family History Hypertension Kidney disease Social History Smoking Status: Never Smoker Alcohol Use: none Drug Use: none Marital Status: Housing Status: lives with family Occupation Status: disabled Allergies Coded Allergies: Penicillins (Verified Allergy, Severe, HIVES, 01/24/17) BEE STING (Verified Allergy, Intermediate, SWELLING, 01/24/17) DOES NOT REQUIRE EPIPEN PER FAMILY Current Medications Home Meds and Scripts Medications Dose Route/Sig Max Daily Dose Days Date Category Dose Instructions Renal (B-Complex W/ C & Folic Acid) 1 Cap Cap 1 Cap PO QAM 30 01/24/17 Rx Phoslo 667 Mg (Calcium Acetate) 667 Mg Cap 667 Mg PO TIDM 30 01/24/17 Rx Miralax (Polyethylene Glycol 3350) 1 Pow Pow 17 Gm PO QAM PRN 01/24/17 Rx Clopidogrel (Clopidogrel Bisulfate) 75 Mg Tab 75 Mg PO QAM 1 01/24/17 Rx DO NOT TAKE THIS UNTIL YOUR SURGEON SAYS IT IS OK TO RESUME BECAUSE OF YOUR RECENT GI BLEEDING Prorenal Qd (Multiple Vitamins W/ Minerals) 1 Cap Cap 1 Cap PO QAM 01/11/17 Reported Crestor (Rosuvastatin Calcium) 20 Mg Tab 20 Mg PO DAILY 01/11/17 Reported Zofran (Ondansetron HCl) 4 Mg Tab 4 Mg PO Q6H PRN 01/11/17 Reported Chronulac (Lactulose) 10 Gm/15 Ml Syrp 1 Dose PO DIRECTED PRN 01/11/17 Reported Trazodone (Trazodone HCl) 50 Mg Tab 50 Mg PO HS PRN 01/11/17 Reported Requip (Ropinirole HCl) 1 Mg Tab 2 Mg PO QPM 01/11/17 Reported Proair Respiclick (Albuterol Sulfate) 108 Mcg/Act Aer 2 Puffs INH QAM 01/11/17 Reported Requip (Ropinirole Hydrochloride) 1 Mg Tab 1 Mg PO QAM 01/11/17 Reported Lasix (Furosemide) 20 Mg Tab 20 Mg PO QAM 01/11/17 Reported novoLOG INSULIN PUMP (Insulin Aspart) 1 Ea Inj 1 Ea N/A UD 01/11/17 Reported Apresoline (Hydralazine Hcl) 25 Mg Tab 25 Mg PO TID 12/02/14 Reported Percocet 5MG/325MG (Oxycodone/Acetaminophen) Tab 1 Tablet PO HS 11/07/14 Reported Aspirin Ec (Aspirin) 81 Mg Tab 81 Mg PO QPM 11/07/14 Reported Nitrostat (Nitroglycerin) 0.4 Mg Tab 0.4 Mg UT UD PRN 09/29/[address] ONE TABLET UNDER THE TONGUE FOR UP TO 3 DOSES IF NEEDED FOR CHEST PAIN. Advair Diskus 250/50 60 Dose (Fluticasone Prop/Salmeterol) 1 Ea Aerp 1 Puff INH Q12 09/29/14 Reported Levalbuterol HCl (Levalbuterol) 1.25 Mg/3 Ml Nebu 1 Vial NEB TID PRN 09/29/14 Reported Pantoprazole Sodium (Pantoprazole) 40 Mg Tab 40 Mg PO QAM 09/29/14 Reported Acyclovir 400 Mg Tab 400 Mg PO BID 09/29/14 Reported Montelukast Sodium (Montelukast Sod) 10 Mg Tab 10 Mg PO QPM 09/29/14 Reported Coreg (Carvedilol) 25 Mg Tab 25 Mg PO AMPM 09/29/14 Reported Sertraline HCl 50 Mg Tab 50 Mg PO QPM 09/29/14 Reported Glucagon Emergency Kit (Glucagon) 1 Mg Kit 1 Dose INJ UD PRN 06/10/14 Reported Ativan (Lorazepam) 1 Mg Tab 0.5-1 Mg PO BID PRN 08/24/12 Reported Imdur Ext Rel (Isosorbide Mononitrate) 120 Mg Ertab 120 Mg PO QAM 04/06/11 Reported Review of Systems Constitutional: No fever, No chills Respiratory: No cough, No shortness of breath Cardiac: + see HPI Abdomen: + see HPI, + nausea, No pain, No vomiting, No diarrhea, No constipation, No GI bleeding Endo: No fatigue Physical Exam Date Time Temp Pulse Resp B/P (MAP) Pulse Ox O2 Delivery O2 Flow Rate FiO2 01/25/17 08:15 36.8 73 20 134/70 98 01/25/17 05:02 54 22 107/40 (62) 95 01/25/17 04:47 57 18 114/53 (73) 94 01/25/17 04:32 57 17 129/51 (77) 92 01/25/17 04:17 61 17 124/51 (75) 93 01/25/17 04:11 36.8 62 21 113/54 (73) 94 01/25/17 04:00 95 Room Air 01/25/17 03:47 60 17 135/47 (76) 92 01/25/17 03:32 62 17 113/55 (74) 97 01/25/17 03:17 60 22 122/57 (78) 97 01/25/17 03:02 62 15 132/53 (79) 95 01/25/17 02:32 67 14 145/62 (89) 95 01/25/17 02:17 68 18 140/62 (88) 95 01/25/17 02:02 70 20 150/63 (92) 94 01/25/17 01:47 65 19 105/67 (80) 96 01/25/17 01:32 66 17 144/57 (86) 93 01/25/17 01:32 66 17 144/57 (86) 93 Room Air 01/25/17 01:17 70 21 135/58 (83) 93 Room Air 01/25/17 01:17 70 21 135/58 (83) 93 01/25/17 01:06 36.8 67 16 136/55 (82) 92 01/25/17 01:06 67 16 136/55 (82) 92 Room Air 01/25/17 01:06 67 16 136/55 (82) 92 01/25/17 00:48 36.1 69 18 139/65 95 Room Air 01/25/17 00:27 76 16 106/85 95 Room Air 01/25/17 00:15 76 16 135/89 95 Room Air 01/24/17 23:26 90 20 134/83 99 01/24/17 23:08 78 23 138/63 99 Nasal Cannula 2.0 01/24/17 22:52 82 23 135/65 Nasal Cannula 2.0 01/24/17 22:15 82 20 124/56 99 Nasal Cannula 2.0 01/24/17 22:05 88 01/24/17 22:03 100 Nasal Cannula 2.0 01/24/17 21:50 37.3 89 25 136/68 100 Room Air 01/24/17 21:50 100 Room Air General Appearance: no apparent distress ENT: hearing grossly normal Neck: supple Respiratory/Chest: lungs clear Cardiovascular: regular rate, rhythm, no gallop, no JVD Abdomen: normal bowel sounds, non tender, soft, no organomegaly Neurologic/Psych: alert, normal mood/affect, oriented x 3 Skin: normal color Laboratory Results Last 24 Hours Test 01/24/17 22:00 01/24/17 22:07 01/24/17 22:09 01/25/17 00:00 White Blood Count 19.24 K/uL Red Blood Count 3.31 M/uL Hemoglobin 9.9 g/dL Hematocrit 29.2 % Mean Corpuscular Volume 88.2 fL Mean Corpuscular Hemoglobin 29.9 pg Mean Corpuscular Hemoglobin Concent 33.9 g/dl Platelet Count 322 K/uL Mean Platelet Volume 11.3 fL Neutrophils (%) (Auto) 85.9 % Lymphocytes (%) (Auto) 6.2 % Monocytes (%) (Auto) 6.2 % Eosinophils (%) (Auto) 0.7 % Basophils (%) (Auto) 0.3 % Neutrophils # (Auto) 16.53 K/uL Lymphocytes # (Auto) 1.20 K/uL Monocytes # (Auto) 1.20 K/uL Eosinophils # (Auto) 0.13 K/uL Basophils # (Auto) 0.05 K/uL RDW Standard Deviation 48.6 fL RDW Coefficient of Variation 15.8 % Immature Granulocyte % (Auto) 0.7 % Immature Granulocyte # (Auto) 0.13 K/uL Prothrombin Time 10.2 SECONDS Prothromb Time International Ratio 1.0 Activated Partial Thromboplast Time 23.8 SECONDS Partial Thromboplastin Ratio 0.9 Sodium Level 133 mmol/L Potassium Level 4.4 mmol/L Chloride Level 98 mmol/L Carbon Dioxide Level 25 mmol/L Anion Gap 10.0 mmol/L 19.0 mmol/L Blood Urea Nitrogen 24 mg/dl Creatinine 2.20 mg/dl Est Creatinine Clear Calc Drug Dose 37.1 ml/min Estimated GFR () 37.7 Estimated GFR (Non- 32.5 BUN/Creatinine Ratio 11.1 Random Glucose 486 mg/dl Calcium Level 8.1 mg/dl Total Creatine Kinase 51 U/L Creatine Kinase MB 1.4 ng/ml Creatine Kinase MB Ratio 2.7 Troponin I 0.244 ng/ml Beta-Hydroxybutyric Acid 5.93 mg/dL Bedside Troponin I 0.170 ng/ml Bedside Hemoglobin 10.5 g/dl Bedside Hematocrit 31 % Bedside Sodium 132 mEq/L Bedside Potassium 4.4 mEq/L Bedside Chloride 96 mEq/L Bedside Total CO2 23 mEq/l Bedside Blood Urea Nitrogen 22 mg/dl Bedside Creatinine 2.0 mg/dl Bedside Glucose (other) 501 mg/dl Bedside Ionized Calcium (Janes) 1.03 mmol/l Stool Occult Blood POSITIVE Test 01/25/17 00:41 01/25/17 01:42 01/25/17 02:10 01/25/17 02:13 Bedside Glucose 312 mg/dl 293 mg/dl 263 mg/dl Hemoglobin 8.6 g/dL Hematocrit 24.9 % Estimated Average Glucose 160 mg/dl Hemoglobin A1c 7.2 % Test 01/25/17 03:14 01/25/17 04:00 01/25/17 05:27 01/25/17 05:34 Bedside Glucose 229 mg/dl 255 mg/dl Hemoglobin 8.2 g/dL Hematocrit 24.1 % Venous Blood pH 7.43 Sodium Level 138 mmol/L Potassium Level 3.9 mmol/L Chloride Level 102 mmol/L Carbon Dioxide Level 27 mmol/L Anion Gap 9.0 mmol/L Blood Urea Nitrogen 32 mg/dl Creatinine 2.20 mg/dl Est Creatinine Clear Calc Drug Dose 37.1 ml/min Estimated GFR () 37.7 Estimated GFR (Non- 32.5 BUN/Creatinine Ratio 14.4 Random Glucose 248 mg/dl Calcium Level 7.7 mg/dl Phosphorus Level 2.8 mg/dl Magnesium Level 2.0 mg/dl Troponin I 4.200 ng/ml Test 01/25/17 07:39 01/25/17 07:41 Bedside Glucose 350 mg/dl Impression Patient is a 56 year old male with an extensive and complicated PMH with a recent history GI bleed from suspected anastomoses from small bowel resection with a negative EGD who was readmitted last night with an KS. GI suggests conservative GI management and transfer to a tertiary care center. Plan Trend H&H Transfuse as needed Monitor stools while admitted PPI BID Surgical evaluation Transfer to tertiary care center Please call with any questions or concerns. I performed a history and physical examination of the patient. I have discussed the patient's case, impression and plan with NEO Peter. Her note reflects my findings and plan. We do not recommend any further endoscopy at this point. I do think patient would be best served at a tertiary center. Oscar Garcias MD
[2017-01-25] MEDS ORDERED: ROSUVASTATIN CALCIUM 20 MG TAB PO SCH (09:00)
[2017-01-25] MEDS ORDERED: NEPHROCAPS PO SCH (09:00)
[2017-01-25] MEDS ORDERED: PANTOprazole SOD 40 MG TAB PO SCH (09:00)
[2017-01-25] MEDS ORDERED: FLUTICASONE/SALMETEROL 250/50 (ADVAIR) 14 PUFF/1 INHALER INH SCH (09:00)
[2017-01-25] MEDS ORDERED: ACYCLOVIR 400 MG TAB PO SCH (09:00)
[2017-01-25] MEDS ORDERED: ASPIRIN 81 MG ECTAB PO SCH ×2 (09:00)
[2017-01-25] MEDS ORDERED: ROPINIROLE HCL 1 MG TAB PO SCH ×2 (09:00→21:00)
[2017-01-25] MEDS ORDERED: CLOPIDOGREL BISULFATE 75 MG TAB PO SCH (09:00)
[2017-01-25] MEDS ORDERED: CARVEDILOL 25 MG TAB PO SCH (09:00)
[2017-01-25] MEDS ORDERED: MoRPHine SULFATE 2 MG/ML CARP IV PRN (09:15)
--- NOTE | 2017-01-25 09:54 | Discharge Instructions ---
Discharge Instructions Date of Service Jan 25, 2017. Admission Reason for Admission: STEMI Discharge Discharge Diagnosis / Problem: GI bleeding, STEMI Discharge Goals Goal(s): Improve disease control, Diagnostic testing, Therapeutic intervention Activity Recommendations Activity Limitations: as noted below Exercise/Sports Limitations: rest today transferred to [facility] . Instructions / Follow-Up Instructions / Follow-Up Home Care: * Take your medications exactly as directed. Don't skip doses. * Remember that recovery after a heart attack takes time. Plan to rest for at lease 4-8 weeks while you recover. Then return to normal activity when your doctor says it's okay. * Ask your doctor about joining a heart rehabilitation program. * Tell your doctor if you are feeling depressed. Feelings of sadness are common after a heart attack, but it is important that you speak to someone if you are feeling overwhelmed by these feelings. * If you are having chest pain, call 911 for an ambulance. Do NOT drive yourself to the hospital. * Ask your family members to learn CPR. * Learn to take your own blood pressure and pulse. Keep a record of your results. Ask your doctor when you should seek emergency medical attention. He or she will tell you which blood pressure reading is dangerous. Lifestyle Changes: * Maintain a healthy weight. Get help to lose any extra pounds. * Cut back on salt. * Limit canned, dried, packaged, and fast foods. * Don't add salt to your food. * Season foods with herbs instead of salt when you cook. * Break the smoking habit. Enroll in a stop-smoking program to improve your chances of success. * Limit fatty foods. * Check your lipid levels regularly. (Your doctor can show you how to do this.) * Build up your activity according to your doctor's recommendation. * Ask your doctor when it's okay to resume sexual activity. * Tell your doctor about any erectile dysfunction (ED) medication you are taking. Some ED medications are not safe if you take certain heart medications. * Try to manage stress. Follow Up: It is important for you to keep your follow up appointments with your medical provider. Current Hospital Diet Patient's current hospital diet: Renal Diet, Diabetes Type 2 Diet Discharge Diet Recommended Diet: Diabetes Type 1 Diet Procedures Procedures Performed: Cardiac catheterization Pending Studies Studies pending at discharge: no Laboratory Results Hemoglobin A1c Test 6/7/17 02:10 Range/Units Estimated Average Glucose 160 mg/dl Hemoglobin A1c 7.2 H 4.5-5.6 % Medical Emergencies . Who to Call and When: Medical Emergencies: If at any time you feel your situation is an emergency, please call 911 immediately. Call 911 immediately or go to your nearest Emergency Room if you experience any of the following: Warning Signs and Symptoms of a Heart Attack * Chest pain that is not relieved by medication * Shortness of breath . Non-Emergent Contact Non-Emergency issues call your: Primary Care Provider, Fireworks Display Specialist . . "Provider Documentation" section prepared by Zehra Anna. . AMI Core Measures Reason no ASA as I/P: Treatment provided - N/A Reason no ASA at D/C: Treatment provided - N/A Reason no statin as I/P: Treatment provided - N/A Reason no statin at D/C: Treatment provided - N/A VTE Core Measure Inpt VTE Proph given/why not?: SCD's, Contraindicated (GI bleeding)
[2017-01-25] MEDS ORDERED: PIPERACILL/TAZOBAC IV 3.375 GM in DEXTROSE 5% 100ML IV ONE (10:00)
[2017-01-25] MEDS ORDERED: VANCOMYCIN CONSULT ACTIVE PRN (10:00)
[2017-01-25] MEDS ORDERED: PIPERACILL/TAZOBAC CONSULT ACTIVE PRN (10:00)
--- NOTE | 2017-01-25 10:20 | Cardiology Follow-Up ---
Subjective General Date of Service: Jan 25, 2017. Chief Complaint: follow up chest pain Pt evaluation today including: conversation w/ patient, physical exam History of Present Illness The patient is a 56 year old male seen in follow up. Patient on nitroglycerin infusion overnight at 30 mcg and is chest pain free but had a lot of dyspepsia overnight with loose black stools and vomiting. Hbg down to ~8 g/dl this am and is receiving another unit of PRBCs. Allergies Coded Allergies: Penicillins (Verified Allergy, Severe, HIVES, 01/24/17) BEE STING (Verified Allergy, Intermediate, SWELLING, 01/24/17) DOES NOT REQUIRE EPIPEN PER FAMILY Social History Smoking Status: Never Smoker Hx Tobacco Use In Past Year?: Yes Hx Alcohol Use - Type And Amou: No Hx Substance Use - Type And Am: No Problem List Medical Problems: (1) Acute coronary syndrome Status: Acute (2) Acute lower GI bleeding Status: Acute (3) Diabetes mellitus Status: Acute (4) Dialysis-associated peritonitis Status: Acute (5) Flank pain Status: Acute (6) History of coronary artery disease Status: Acute (7) Hyperglycemia Status: Acute (8) Peritoneal dialysis catheter in place Status: Acute (9) SBO (small bowel obstruction) Status: Acute (10) STEMI (ST elevation myocardial infarction) Status: Acute (11) Substernal chest pain Status: Acute (12) Symptomatic anemia Status: Acute (13) Ventral hernia Status: Acute Physical Exam Vital Signs Last Vital Signs Documentation Date Time Temp Pulse Resp B/P (MAP) Pulse Ox O2 Delivery O2 Flow Rate FiO2 01/25/17 08:15 36.8 73 20 134/70 98 01/25/17 04:00 Room Air 01/24/17 23:08 2.0 Physical Exam Constitutional: Level of Distress: acutely ill, chronically ill Neck: supple Lungs: Auscultation: no wheezing, no rales/crackles, no rhonchi Cardiovascular: Heart Auscultation: RRR, no murmurs Abdomen: Bowel Sounds: pertinent finding (mildly distented, no tenterness) Extremities: pertinent finding (trace ankle edema ) Assessment and Plan Assessment and Plan Last Resulted 01/24/17 22:00 Red Blood Count 3.31, Mean Corpuscular Volume 88.2, Mean Corpuscular Hemoglobin 29.9, Mean Corpuscular Hemoglobin Concent 33.9, Mean Platelet Volume 11.3, Neutrophils (%) (Auto) 85.9, Lymphocytes (%) (Auto) 6.2, Monocytes (%) (Auto) 6.2, Eosinophils (%) (Auto) 0.7, Basophils (%) (Auto) 0.3, Neutrophils # (Auto) 16.53, Lymphocytes # (Auto) 1.20, Monocytes # (Auto) 1.20, Eosinophils # (Auto) 0.13, Basophils # (Auto) 0.05 01/25/17 04:00 Last Resulted 01/25/17 05:27 Past 24 Hours Test 01/24/17 22:00 01/25/17 05:27 Range/Units Creatine Kinase MB 1.4 0.5-3.6 ng/ml Creatine Kinase MB Ratio 2.7 0-3.0 Prothromb Time International Ratio 1.0 0.9-1.1 Prothrombin Time 10.2 9.0-12.0 SECONDS Total Creatine Kinase 51 39-308 U/L Troponin I 0.244 *H 4.200 *H 0-0.045 ng/ml EKG 01/25/17 SR with Anteroseptal infarct pattern (ST elevation over Q waves) and lateral ST depression relatively unchanged compared to post cath EKG from overnight. Impression; 56 year old male 1. ACS 2. Anemia, suspected ongoing GI blood loss with recent partial small bowel resection, hernia repair for incarcerated hernia 3. Pre-existent ischemic CM, LVEF 30-35% in 2014. Plan: Cath revealed patent grafts (ASA and Plavix had been on hold given recent surgery and anemia) severe port gamble vessel disease, medical management recommended however limited due to anemia. ASA 81 administered this am. Holding plavix. Received ASA 324 mg chewed prior to emergent cath overnight. Agree with transfer to tertiary center for surgery consult . Will hold off on echo ordered here as transfer occurring, recommend obtaining echo at [facility]. Cath films sent to [facility] electronically for purpose of continuity of care. Laboratory Results Last 24 Hours Test 01/24/17 22:00 01/24/17 22:07 01/24/17 22:09 01/25/17 00:00 White Blood Count 19.24 K/uL Red Blood Count 3.31 M/uL Hemoglobin 9.9 g/dL Hematocrit 29.2 % Mean Corpuscular Volume 88.2 fL Mean Corpuscular Hemoglobin 29.9 pg Mean Corpuscular Hemoglobin Concent 33.9 g/dl Platelet Count 322 K/uL Mean Platelet Volume 11.3 fL Neutrophils (%) (Auto) 85.9 % Lymphocytes (%) (Auto) 6.2 % Monocytes (%) (Auto) 6.2 % Eosinophils (%) (Auto) 0.7 % Basophils (%) (Auto) 0.3 % Neutrophils # (Auto) 16.53 K/uL Lymphocytes # (Auto) 1.20 K/uL Monocytes # (Auto) 1.20 K/uL Eosinophils # (Auto) 0.13 K/uL Basophils # (Auto) 0.05 K/uL RDW Standard Deviation 48.6 fL RDW Coefficient of Variation 15.8 % Immature Granulocyte % (Auto) 0.7 % Immature Granulocyte # (Auto) 0.13 K/uL Prothrombin Time 10.2 SECONDS Prothromb Time International Ratio 1.0 Activated Partial Thromboplast Time 23.8 SECONDS Partial Thromboplastin Ratio 0.9 Sodium Level 133 mmol/L Potassium Level 4.4 mmol/L Chloride Level 98 mmol/L Carbon Dioxide Level 25 mmol/L Anion Gap 10.0 mmol/L 19.0 mmol/L Blood Urea Nitrogen 24 mg/dl Creatinine 2.20 mg/dl Est Creatinine Clear Calc Drug Dose 37.1 ml/min Estimated GFR () 37.7 Estimated GFR (Non- 32.5 BUN/Creatinine Ratio 11.1 Random Glucose 486 mg/dl Calcium Level 8.1 mg/dl Total Creatine Kinase 51 U/L Creatine Kinase MB 1.4 ng/ml Creatine Kinase MB Ratio 2.7 Troponin I 0.244 ng/ml Beta-Hydroxybutyric Acid 5.93 mg/dL Bedside Troponin I 0.170 ng/ml Bedside Hemoglobin 10.5 g/dl Bedside Hematocrit 31 % Bedside Sodium 132 mEq/L Bedside Potassium 4.4 mEq/L Bedside Chloride 96 mEq/L Bedside Total CO2 23 mEq/l Bedside Blood Urea Nitrogen 22 mg/dl Bedside Creatinine 2.0 mg/dl Bedside Glucose (other) 501 mg/dl Bedside Ionized Calcium (Janes) 1.03 mmol/l Stool Occult Blood POSITIVE Test 01/25/17 00:41 01/25/17 01:42 01/25/17 02:10 01/25/17 02:13 Bedside Glucose 312 mg/dl 293 mg/dl 263 mg/dl Hemoglobin 8.6 g/dL Hematocrit 24.9 % Estimated Average Glucose 160 mg/dl Hemoglobin A1c 7.2 % Test 01/25/17 03:14 01/25/17 04:00 01/25/17 05:27 01/25/17 05:34 Bedside Glucose 229 mg/dl 255 mg/dl Hemoglobin 8.2 g/dL Hematocrit 24.1 % Venous Blood pH 7.43 Sodium Level 138 mmol/L Potassium Level 3.9 mmol/L Chloride Level 102 mmol/L Carbon Dioxide Level 27 mmol/L Anion Gap 9.0 mmol/L Blood Urea Nitrogen 32 mg/dl Creatinine 2.20 mg/dl Est Creatinine Clear Calc Drug Dose 37.1 ml/min Estimated GFR () 37.7 Estimated GFR (Non- 32.5 BUN/Creatinine Ratio 14.4 Random Glucose 248 mg/dl Calcium Level 7.7 mg/dl Phosphorus Level 2.8 mg/dl Magnesium Level 2.0 mg/dl Total Bilirubin 0.4 mg/dl Direct Bilirubin 0.2 mg/dl Aspartate Amino Transf (AST/SGOT) 111 U/L Alanine Aminotransferase (ALT/SGPT) 117 U/L Alkaline Phosphatase 849 U/L Troponin I 4.200 ng/ml Total Protein 5.2 gm/dl Albumin 2.4 gm/dl Test 01/25/17 07:41 Bedside Glucose 350 mg/dl
[2017-01-25] MEDS ORDERED: VANCOMYCIN INJ 2,000 MG in SODIUM CHLORIDE 0.9% 500ML 500 ML IV ONE (10:30)
--- NOTE | 2017-01-25 10:35 | Discharge Summary ---
Discharge Summary Date of Service Jan 25, 2017. Discharge Summary Admission Date: Jan 25, 2017 at 00:23 Discharge Date: Jan 25, 2017 Discharge Disposition: Acute care facility Principal Diagnosis: GI bleeding, anemia of acute blood loss, STEMI Problems/Secondary Diagnoses: History of recent partial small bowel resection and incarcerated hernia repair DMI with hyperglycemia, on insulin pump Symptomatic anemia Severe CAD s/p CABG and STEMI on 01/24 Ischemic cardiomyopathy Chronic systolic CHF ESRD on HD HTN PAF not on anticoagulation Restless leg syndrome Asthma Diverticulosis Abdominal aortic atherosclerosis Immunizations: Have You Had Influenza Vaccine: Yes Influenza Vaccine Date: May 10, 2012 History of Tetanus Vaccine?: Yes Tetanus Immunization Date: May 08, 2006 History of Pneumococcal: Yes Pneumococcal Date: May 10, 2006 History of Hepatitis B Vaccine: Yes Procedures: Cardiac catheterization: Summary of Findings Indication: ACS Access: 6Fr right femoral artery Catheters: JL4, JR4, MARIANA, LCB, AR1 Findings: LM - Moderate caliber, diffusely diseased with 30% distal stenosis LAD - Small caliber vessel with diffuse disease. 100% occluded in the mid segment. Small diffusely disease 1st diagonal with 80% ostial stenosis. Distal to HDZ anastomosis diffuse mild disease; retrofills small 2nd diagonal Ramus - Very small caliber vessel with severe ostial disease Circumflex - Small caliber vessel, diffusely diseased with 40% mid stenosis; occluded OM1 fills via retrograde via left to left collaterals. OM2 with severe 80% ostial stenosis, 90+% stenosis distal to anastomosis RCA - Known to be occluded proximally. Distal vessels partially fill via left to right collaterals. HDZ to LAD - Widely patent. Mild diffuse distal disease after anastomosis. SVG to OM - Widely patent. 90+ stenosis after anastomosis. LVEDP - 35 Arterial Closure: Mynx Summary: 1. Severe [place] multivessel coronary artery disease - Occluded mid LAD - Occluded proximal RCA - 80% proximal OM2; 90% distal OM2 stenosis after SVG anastomosis 2. Patent HDZ to LAD, SVG to OM2 3. Elevated intracardiac filling pressure Recommendations: Consideration given to intervention to small OM2. As ROSA 3 flow/resolved chest pain, in the setting of recent suspected GI bleed/anemia without clear source and recent abdominal surgery decision was made to treat stenosis medically. In the future when current medical issues are more stable if recurrent angina consideration could be given to POBA of OM stenosis possible BMS. Admit to ICU now for continued monitoring. Start nitro infusion. Hold on additional heparin. Continue ASA. Hold Plavix. Continued ASCVD risk factor modification with Dr. Shepherd SINGLE VIEW CHEST CLINICAL HISTORY: Atypical chest pain. FINDINGS: An AP, portable, upright chest radiograph is compared to study dated 01/11/2017 and correlated with chest CT dated 04/10/2010. The examination is degraded by portable technique and patient rotation. The patient is status post midline sternotomy. The heart is enlarged and there is atherosclerotic calcification of the thoracic aorta. There is mild pulmonary vascular congestion. Trace pleural effusions are identified. No airspace consolidation is seen typical for pneumonia. No pneumothorax is seen. The skeletal structures are osteopenic. The bony thorax is grossly intact. Degenerative change is noted in the thoracic spine and shoulders. IMPRESSION: 1. Cardiomegaly with evidence of mild congestive failure. 2. Trace pleural effusions. Consultations: Critical Care Medicine Cardiology Gastroenterology General Surgery Medication Reconciliation Continued Medications: Acyclovir (Acyclovir) 400 Mg Tab 400 MG PO BID Albuterol Sulfate (Proair Respiclick) 108 Mcg/Act Aer 2 PUFFS INH QAM Aspirin (Aspirin Ec) 81 Mg Tab 81 MG PO QPM B-Complex W/ C & Folic Acid (Renal) 1 Cap Cap 1 CAP PO QAM for 30 Days, #30 CAP Calcium Acetate (Phoslo 667 Mg) 667 Mg Cap 667 MG PO TIDM for 30 Days, #90 CAP Carvedilol (Coreg) 25 Mg Tab 25 MG PO AMPM Fluticasone Prop/Salmeterol (Advair Diskus 250/50 60 Dose) 1 Ea Aerp 1 PUFF INH Q12 Furosemide (Lasix) 20 Mg Tab 20 MG PO QAM, TAB Glucagon (Glucagon Emergency Kit) 1 Mg Kit 1 DOSE INJ UD PRN for HYPOGLYCEMIA Hydralazine Hcl (Apresoline) 25 Mg Tab 25 MG PO TID Insulin Aspart (novoLOG INSULIN PUMP ) 1 Ea Inj 1 EA N/A UD, EA Levalbuterol (Levalbuterol HCl) 1.25 Mg/3 Ml Nebu 1 VIAL NEB TID PRN for COPD Lorazepam (Ativan) 1 Mg Tab 0.5-1 MG PO BID PRN for Anxiety Montelukast Sod (Montelukast Sodium) 10 Mg Tab 10 MG PO QPM Multiple Vitamins W/ Minerals (Prorenal Qd) 1 Cap Cap 1 CAP PO QAM Nitroglycerin (Nitrostat) 0.4 Mg Tab 0.4 MG UT UD PRN for Chest Pain PLACE ONE TABLET UNDER THE TONGUE FOR UP TO 3 DOSES IF NEEDED FOR CHEST PAIN. Ondansetron Hcl (Zofran) 4 Mg Tab 4 MG PO Q6H PRN for Nausea, TAB Oxycodone/Acetaminophen 5MG/325MG (Percocet 5MG/325MG) Tab 1 TABLET PO HS Pantoprazole (Pantoprazole Sodium) 40 Mg Tab 40 MG PO QAM Polyethylene Glycol 3350 (Miralax) 1 Pow Pow 17 GM PO QAM PRN for Constipation, #255 GM Ropinirole (Requip) 1 Mg Tab 2 MG PO QPM, TAB Ropinirole Hydrochloride (Requip) 1 Mg Tab 1 MG PO QAM, TAB Rosuvastatin Calcium (Crestor) 20 Mg Tab 20 MG PO DAILY, TAB Sertraline HCl (Sertraline HCl) 50 Mg Tab 50 MG PO QPM Trazodone Hcl (Trazodone) 50 Mg Tab 50 MG PO HS PRN for Sleep, TAB Discontinued Medications: Clopidogrel Bisulfate (Clopidogrel) 75 Mg Tab 75 MG PO QAM for 1 Day DO NOT TAKE THIS UNTIL YOUR SURGEON SAYS IT IS OK TO RESUME BECAUSE OF YOUR RECENT GI BLEEDING Isosorbide Mononitrate Ext Rel (Imdur Ext Rel) 120 Mg Ertab 120 MG PO QAM, 0 Refills Lactulose (Chronulac) 10 Gm/15 Ml Syrp 1 DOSE PO DIRECTED PRN for Constipation Discharge Exam Pt with some nausea this AM, also with lower abdominal pain that was not present yesterday on discharge from previous admission. He has had an increase since yesterday in his melena as well and hgb dropped from 9.9 to 8.2 this AM. He is on insulin gtt, nitro gtt, and getting PRBC transfusion. Spoke with Sports Book Board Attendant who is recommending transfer to [facility] due to ongoing GI bleeding likely made worse now by heparin last night with his STEMI (which has since been stopped), where his primary Surgeon is located that performed his recent bowel resection. Review of Systems: Constitutional: No fever Eyes: No problem reported ENT: No problem reported Respiratory: + shortness of breath Cardiovascular: + edema, No chest pain Abdomen: + pain, + nausea, + GI bleeding, No vomiting Musculoskeletal: No problem reported Genitourinary - Male: No problem reported Neurologic: No problem reported Psychiatric: No problem reported Endocrine: No problem reported Hematologic / Lymphatic: No problem reported Integumentary: No problem reported Physical Exam: General Appearance: WD/WN, + mild distress Eyes: normal inspection, EOMI, sclerae normal ENT: hearing grossly normal Neck: trachea midline Respiratory/Chest: lungs clear, normal breath sounds, no respiratory distress, no accessory muscle use Cardiovascular: regular rate, rhythm, no murmur, + pertinent finding (2+ pitting edema legs to thighs bilat) Abdomen / GI: normal bowel sounds, soft, + pertinent finding (+TTP RLQ without guarding or rebound, norma in place over surgical scars, no drainage, no hernia palpated) Extremities: no calf tenderness Neurologic/Psychiatric: alert, normal mood/affect, oriented x 3 Skin: normal color, warm/dry, no rash Hospital Course 56 yo male with DMI on insulin pump, Severe CAD s/p CABGX2, ischemic chronic systolic CHF, PAF not on AC, ESRD on HD, with recent incarcerated ventral hernia repair, recent admission to [facility] for GI bleeding discharged on 01/24 after receiving a total of 4 units of PRBC transfusion presented to the ER with complaints of waxing and waning chest pain on left side radiating to LUE and then LLE He had recently presented to [facility] for abdominal discomfort at the end of December and transferred to [facility] and underwent partial small bowel resection and hernia repair for an incarcerated femoral hernia on 01/12/17. He was readmitted at [facility] on 01/20/17 for GI bleed and a hemoglobin of 7.8. He underwent an EGD on 01/24 which was unremarkable and bleeding thought to be coming from the anastomosis site. The bleeding had resolved for the most part on the day of discharge with stool being brown mixed with small amount of black and only 1 stool per 24 hrs. He received a total of 4 units of PRBC transfusion and was discharged home. He returned to the ER with complaints of waxing and waning chest pain, 9/10 in severity and was found to have new ST segment elevation on EKG. His pain resolved with sublingual nitroglycerin and fentanyl. Repeat EKG revealed anterior ST elevation and lateral ST depression with return of his chest pain. Heart alert was called and he was taken to cytology laboratory manager with cath report as above. No intervention was performed. 56 yo male with DMI on insulin pump, Severe CAD s/p CABG, ischemic chronic systolic CHF, PAF not on AC, ESRD on HD, with recent incarcerated ventral hernia repair, with recent GI bleeding and acute blood loss anemia. His Hgb was 9.9 on admission on evening of 01/25 and then dropped to 8.2 this AM with multiple black stools and development of lower abd pain overnight. Being transfused with PRBCs, on nitro gtt for chest pain. -his ASA and Plavix were held, but ASA 81mg daily restarted due to h/o severe CAD and STEMI - continue Protonix IV bid -transfer to [facility] where his Surgeon is located T1DM, w/ hyperglycemia: glucose initially in the 500s, now improving on insulin gtt - on insulin gtt - HgbA1C 7.9% here ESRD on HD: - Received inpatient dialysis on 01/24- to continue //Mon schedule or as needed given large volume of PRBC transfusions today Severe CAD s/p CABG/HTN/PAF/STEMI-cath as per above - Continue Carvedilol 25 mg BID, Furosemide 20 mg QAM is on hold currently, Hydralazine 25 mg TID, and Nitro gtt. -his home Imdur ER 20 mg QAM is on hold currently - Hold Plavix 75 mg daily due to ongoing GI bleeding but need to continue ASA 81mg daily for STEMI and severe CAD - Consult cardiology, appreciate recommendations Elevated LFTs-has a h/o this in the past, liver appeared normal on CT except mild central biliary ductal dilatation. Has h/o cholecystectomy. Suspect from recent major intrabdominal surgery -follow as outpatient until improved Restless leg syndrome: Continue Ropinirole 2 mg by mouth every afternoon and 1 mg by mouth QAM Asthma: Continue Albuterol HFA, Advair Diskus, and Montelukast GI prophylaxis: Protonix DVT prophylaxis: Chemical means contraindicated due to anemia and ongoing GI bleeding Code Status: LEVEL I, FULL Dispo: transferred to [facility] Total Time Spent: Greater than 30 minutes This includes examination of the patient, discharge planning, medication reconciliation, and communication with other providers. Discharge Instructions Please refer to the electronic Patient Visit Report (Discharge Instructions) for additional information. Additional Copies To Arielle Whittaker MD ; [facility]
[2017-01-25 10:36] LABS: URINE APPEARANCE CLEAR (CLEAR); URINE COLOR DK YELLOW; URINE NITRITE NEG (NEG); URINE SPECIFIC GRAVITY > 1.045 (1.000-1.030); UROBILINOGEN NEG (NEG)
[2017-01-25 10:38] LABS: MANUAL MICROSCOPIC REQUIRED? NO; REVIEW REQ? YES; URINE BILIRUBIN NEG (NEG)
--- NOTE | 2017-01-25 10:51 | Nephrology Consultation ---
Nephrology Consultation Date & Providers Date of Consultation: Jan 25, 2017. Primary Care Provider: Arielle Whittaker MD Referring Provider: Reason for Consultation Management of end-stage renal disease on hemodialysis while admitted for STEMI History of Present Illness Sly Caro is a 56-year-old gentlemen with past medical history significant for hypertension, DM, coronary artery disease s/p CABG, COPD and ESRD on HD admitted with STEMI and had cardiac catheterization. Nephrology consult was requested to manage hemodialysis. Electronic medical records including labs and imaging are reviewed in detail during patient's visit. He was seen in his room in ICU with his at bedside. Candelario was recently admitted to the hospital from 01/20/17 -01/24/17 for anemia with GI bleeding and was discharged home yesterday afternoon. He recently had bowel resection for strangulated hernia at [facility] in last week of December. He presented to the hospital during last hospitalization with hypotension, generalized weakness and lightheadedness. On admission Hb was 7.8, FOBT positive. He had been having black stool since his discharge after surgery. had EGD yesterday morning which was otherwise unremarkable without any evidence of upper GI bleeding. He received total 4 units of PRBC and Hb improved to 9.6 before discharge yesterday afternoon. After discharge as he went home and was feeling fine however at night while he was resting he started having severe chest pain and came to the ED. EKG on admission showed ST elevation PR, troponin was mildly elevated. Heart alert was called and he was taken to the cardiac catheterization, had catheterization however no stentable lesion identified and plan was to continue on medical management. Currently he is on nitro drip and getting 1 unit of blood transfusion as hemoglobin again dropped to 8.2. overall he has not been feeling well and mainly complaining of uncomfortable feeling in his abdomen. Denies any further episode of chest pain, shortness of breath or palpitation. Vital sign has been stable. Candelario has history of end-stage renal disease and has been on continuous cyclic peritoneal dialysis since January 2013. he was initially started on hemodialysis in August 2012 for end-stage renal disease secondary to decompensated right heart failure. He has been doing very well on dialysis. His PD catheter was recently taken out and he is back to HD on TTS at [facility] via left radiocephalic AVF. He has history coronary artery disease, previously had CABG done, history of hypertension, diabetes and history of right-sided heart failure with COPD. Allergies Coded Allergies: Penicillins (Verified Allergy, Severe, HIVES, 01/24/17) BEE STING (Verified Allergy, Intermediate, SWELLING, 01/24/17) DOES NOT REQUIRE EPIPEN PER FAMILY Inpatient Medications Current Inpatient Medications Medications (Trade) Dose Ordered Sig/Shasha Route Start Time Stop Time Status Last Admin Dose Admin Nitroglycerin/ Dextrose 250 ml @ 0 mls/hr Q0M IV 01/25/17 00:30 02/24/17 00:29 01/25/17 01:05 12 MLS/HR Aspirin (Ecotrin Tab) 81 mg QAM PO 01/25/17 09:00 02/24/17 08:59 Miscellaneous Information (Consult Glycemic Management Pharmacy) 1 ea UD PRN N/A 01/25/17 01:45 02/24/17 01:44 Acyclovir (Zovirax Tab) 400 mg BID PO 01/25/17 09:00 02/04/17 08:59 Vitamin B Complex/ Vit C/Folic Acid (Nephrocaps) 1 cap QAM PO 01/25/17 09:00 02/24/17 08:59 Carvedilol (Coreg Tab) 25 mg BID PO 01/25/17 09:00 02/24/17 08:59 Salmeterol Xinafoate/ Fluticasone (Advair Diskus 250/50 Inh) 1 puff Q12 INH 01/25/17 09:00 02/24/17 08:59 Hydralazine HCl (Apresoline Tab) 25 mg TID PO 01/25/17 09:00 02/24/17 08:59 Levalbuterol (Xopenex 1.25MG/ 3ML Neb) 1.25 mg TID PRN INH 01/25/17 01:00 02/24/17 00:59 Lorazepam (Ativan Tab) 1 mg BID PRN PO 01/25/17 01:00 02/24/17 00:59 Montelukast Sodium (Singulair Tab) 10 mg QPM PO 01/25/17 21:00 02/24/17 20:59 Ondansetron HCl (Zofran Tab) 4 mg Q6H PRN PO 01/25/17 01:00 02/24/17 00:59 Oxycodone/ Acetaminophen (Percocet 5-325mg Tab) 1 tab HS PO 01/25/17 21:00 02/08/17 20:59 Ropinirole HCl (Requip Tab) 2 mg QPM PO 01/25/17 21:00 02/24/17 20:59 Ropinirole HCl (Requip Tab) 1 mg QAM PO 01/25/17 09:00 02/24/17 08:59 Rosuvastatin Calcium (Crestor Tab) 20 mg DAILY PO 01/25/17 09:00 02/24/17 08:59 Sertraline HCl (Zoloft Tab) 50 mg QPM PO 01/25/17 21:00 02/24/17 20:59 Trazodone HCl (Desyrel Tab) 50 mg HS PRN PO 01/25/17 01:00 02/24/17 00:59 Polyethylene (Miralax Powder Packet) 17 gm DAILY PRN PO 01/25/17 02:00 02/24/17 01:59 Nitroglycerin (Nitrostat Tab) 0.4 mg UD PRN SL 01/25/17 01:00 02/24/17 00:59 Ondansetron HCl (Zofran Inj) 4 mg Q6H PRN IV 01/25/17 01:00 02/24/17 00:59 01/25/17 05:30 4 MG Hydromorphone HCl (Dilaudid Inj) 0.5 mg Q4H PRN IV 01/25/17 01:00 02/08/17 00:59 Glucose (Glucose 40% Gel) 15-30 GRAMS 15 GRAMS... UD PRN PO 01/25/17 02:00 02/24/17 01:59 Glucose (Glucose Chew Tab) 4-8 Tablets 4 Tabl... UD PRN PO 01/25/17 02:00 02/24/17 01:59 Dextrose (Dextrose 50% 50ML Syringe) 25-50ML OF 50% DW IV FOR... UD PRN IV 01/25/17 02:00 02/24/17 01:59 Glucagon (Glucagon Inj) 1 mg UD PRN SQ 01/25/17 02:00 02/24/17 01:59 Pantoprazole Sodium 40 mg/ Syringe 10 ml @ 5 mls/min DAILY@1100 IV 01/25/17 11:00 02/24/17 10:59 Insulin Aspart (novoLOG ASPART) SLIDING SCALE [facility] 01/25/17 08:00 02/24/17 07:59 Insulin Human Regular 250 units/ Sodium Chloride 252.5 ml @ 0 mls/hr DAILY@1130 IV 01/25/17 08:00 02/24/17 07:59 Family History Hypertension Kidney disease Social History Smoking Status: Never Smoker Drug Use: none Marital Status: Housing Status: lives with family Occupation: disabled Review of Systems A complete review of systems was performed. Pertinent positives are noted above. All other systems are negative. Physical Exam Date Time Temp Pulse Resp B/P (MAP) Pulse Ox O2 Delivery O2 Flow Rate FiO2 01/25/17 05:02 54 22 107/40 (62) 95 01/25/17 04:47 57 18 114/53 (73) 94 01/25/17 04:32 57 17 129/51 (77) 92 01/25/17 04:17 61 17 124/51 (75) 93 01/25/17 04:11 36.8 62 21 113/54 (73) 94 01/25/17 04:00 95 Room Air 01/25/17 03:47 60 17 135/47 (76) 92 01/25/17 03:32 62 17 113/55 (74) 97 01/25/17 03:17 60 22 122/57 (78) 97 01/25/17 03:02 62 15 132/53 (79) 95 01/25/17 02:32 67 14 145/62 (89) 95 01/25/17 02:17 68 18 140/62 (88) 95 01/25/17 02:02 70 20 150/63 (92) 94 01/25/17 01:47 65 19 105/67 (80) 96 01/25/17 01:32 66 17 144/57 (86) 93 01/25/17 01:32 66 17 144/57 (86) 93 Room Air 01/25/17 01:17 70 21 135/58 (83) 93 Room Air 01/25/17 01:17 70 21 135/58 (83) 93 01/25/17 01:06 36.8 67 16 136/55 (82) 92 01/25/17 01:06 67 16 136/55 (82) 92 Room Air 01/25/17 01:06 67 16 136/55 (82) 92 01/25/17 00:48 36.1 69 18 139/65 95 Room Air 01/25/17 00:27 76 16 106/85 95 Room Air 01/25/17 00:15 76 16 135/89 95 Room Air 01/24/17 23:26 90 20 134/83 99 01/24/17 23:08 78 23 138/63 99 Nasal Cannula 2.0 01/24/17 22:52 82 23 135/65 Nasal Cannula 2.0 01/24/17 22:15 82 20 124/56 99 Nasal Cannula 2.0 01/24/17 22:05 88 01/24/17 22:03 100 Nasal Cannula 2.0 01/24/17 21:50 37.3 89 25 136/68 100 Room Air 01/24/17 21:50 100 Room Air GENERAL: Middle-aged male, AAA x 3, ill-appearing, somewhat distressed. HEENT: Atraumatic, normocephalic. NECK: Supple, no JVD, no carotid bruit appreciated. ENT: No sinus tenderness MOUTH and THROAT: Moist oral mucosa, no oral ulcer or pharyngeal erythema RESPIRATORY: Normal breathing efforts, no accessory muscle use, clear to auscultation bilaterally, no wheezes or rales. CARDIOVASCULAR: S1, S2 normal, rate rhythm regular. ABDOMEN: Soft, nontender, positive bowel sound, [place] in place from recent surgery. MUSCULOSKELETAL: No joint swelling, erythema or tenderness. Normal range of motion. SKIN: No skin rash EXTREMITY: trace bilateral lower extremity edema NEURO: No gross focal neurological deficit, speech fluent. PSYCHIATRY: Normal mood and judgment Laboratory Results Last 24 Hours Test 01/24/17 22:00 01/24/17 22:07 01/24/17 22:09 01/25/17 00:00 White Blood Count 19.24 K/uL Red Blood Count 3.31 M/uL Hemoglobin 9.9 g/dL Hematocrit 29.2 % Mean Corpuscular Volume 88.2 fL Mean Corpuscular Hemoglobin 29.9 pg Mean Corpuscular Hemoglobin Concent 33.9 g/dl Platelet Count 322 K/uL Mean Platelet Volume 11.3 fL Neutrophils (%) (Auto) 85.9 % Lymphocytes (%) (Auto) 6.2 % Monocytes (%) (Auto) 6.2 % Eosinophils (%) (Auto) 0.7 % Basophils (%) (Auto) 0.3 % Neutrophils # (Auto) 16.53 K/uL Lymphocytes # (Auto) 1.20 K/uL Monocytes # (Auto) 1.20 K/uL Eosinophils # (Auto) 0.13 K/uL Basophils # (Auto) 0.05 K/uL RDW Standard Deviation 48.6 fL RDW Coefficient of Variation 15.8 % Immature Granulocyte % (Auto) 0.7 % Immature Granulocyte # (Auto) 0.13 K/uL Prothrombin Time 10.2 SECONDS Prothromb Time International Ratio 1.0 Activated Partial Thromboplast Time 23.8 SECONDS Partial Thromboplastin Ratio 0.9 Sodium Level 133 mmol/L Potassium Level 4.4 mmol/L Chloride Level 98 mmol/L Carbon Dioxide Level 25 mmol/L Anion Gap 10.0 mmol/L 19.0 mmol/L Blood Urea Nitrogen 24 mg/dl Creatinine 2.20 mg/dl Est Creatinine Clear Calc Drug Dose 37.1 ml/min Estimated GFR () 37.7 Estimated GFR (Non- 32.5 BUN/Creatinine Ratio 11.1 Random Glucose 486 mg/dl Calcium Level 8.1 mg/dl Total Creatine Kinase 51 U/L Creatine Kinase MB 1.4 ng/ml Creatine Kinase MB Ratio 2.7 Troponin I 0.244 ng/ml Beta-Hydroxybutyric Acid 5.93 mg/dL Bedside Troponin I 0.170 ng/ml Bedside Hemoglobin 10.5 g/dl Bedside Hematocrit 31 % Bedside Sodium 132 mEq/L Bedside Potassium 4.4 mEq/L Bedside Chloride 96 mEq/L Bedside Total CO2 23 mEq/l Bedside Blood Urea Nitrogen 22 mg/dl Bedside Creatinine 2.0 mg/dl Bedside Glucose (other) 501 mg/dl Bedside Ionized Calcium (Janes) 1.03 mmol/l Stool Occult Blood POSITIVE Test 01/25/17 00:41 01/25/17 01:42 01/25/17 02:10 01/25/17 02:13 Bedside Glucose 312 mg/dl 293 mg/dl 263 mg/dl Hemoglobin 8.6 g/dL Hematocrit 24.9 % Estimated Average Glucose 160 mg/dl Hemoglobin A1c 7.2 % Test 01/25/17 03:14 01/25/17 04:00 01/25/17 05:27 01/25/17 05:34 Bedside Glucose 229 mg/dl 255 mg/dl Hemoglobin 8.2 g/dL Hematocrit 24.1 % Venous Blood pH 7.43 Sodium Level 138 mmol/L Potassium Level 3.9 mmol/L Chloride Level 102 mmol/L Carbon Dioxide Level 27 mmol/L Anion Gap 9.0 mmol/L Blood Urea Nitrogen 32 mg/dl Creatinine 2.20 mg/dl Est Creatinine Clear Calc Drug Dose 37.1 ml/min Estimated GFR () 37.7 Estimated GFR (Non- 32.5 BUN/Creatinine Ratio 14.4 Random Glucose 248 mg/dl Calcium Level 7.7 mg/dl Phosphorus Level 2.8 mg/dl Magnesium Level 2.0 mg/dl Test 01/25/17 07:39 Janine Palomino Is a 55-year-old gentlemen with end-stage renal disease on CCPD was recently admitted to the hospital from 01/20/17 -01/24/17 for anemia with GI bleeding and was discharged home yesterday afternoon. He recently had bowel resection for strangulated hernia at [facility] in last week of December. He presented to the hospital during last hospitalization with hypotension, generalized weakness and lightheadedness. On admission Hb was 7.8, FOBT positive. He had been having black stool since his discharge after surgery. had EGD yesterday morning which was otherwise unremarkable without any evidence of upper GI bleeding. He received total 4 units of PRBC and Hb improved to 9.6 before discharge yesterday afternoon. After discharge as he went home and was feeling fine however at night while he was resting he started having severe chest pain and came to the ED. EKG on admission showed ST elevation PR, troponin was mildly elevated. Heart alert was called and he was taken to the cardiac catheterization, had catheterization however no stentable lesion identified and plan was to continue on medical management. Has history of coronary artery disease previously had CABG done, has known of coronary artery disease and no plan for surgery, being managed medically and has been asymptomatic. Has history of COPD, obstructive sleep apnea . Has hypertension and diabetes which seems to be well controlled. Recommendations --currently seems clinically stable, chest pain-free. Getting blood transfusion , on nitro drip. --electrolyte, blood pressure and volume status stable --waiting on GI recommendations/plan a regarding continued drop in hemoglobin with negative EGD --received Epogen 38950 units during dialysis on 01/24/2017 --avoid further IV fluid --No acute indication for dialysis today will keep on schedule for tomorrow as his regular schedule. Continue on nephrocap, discontinue PhosLo as phosphate has been well controlled last was 2.6. Thank you for allowing me to participate in your patient's care. It was a pleasure to see Candelario This chart was completed utilizing [employer] Speech and voice recognition software. Grammatical errors, random word insertions, pronoun errors and incomplete sentences are occasional consequences of this system. Any questions or concerns about the content, text or information contained within the body of this dictation should be addressed directly to the physician for clarification.
[2017-01-25] MEDS ORDERED: PANTOprazole INJ 40 MG in SYRINGE 0 ML IV SCH (11:00)
[2017-01-25] MEDS ORDERED: PIPERACILL/TAZOBAC IV 3.375 GM in DEXTROSE 5% 100ML IV SCH (18:00)
[2017-01-25] MEDS ORDERED: MONTELUKAST SOD 10 MG TAB PO SCH (21:00)
[2017-01-25] MEDS ORDERED: SERTRALINE HCL 50 MG TAB PO SCH (21:00)
[2017-01-25] MEDS ORDERED: OXYCODONE/ACETAMINOPHEN 5-325 TAB PO SCH (21:00)
[2017-02-05] MEDS ORDERED: CRG3125 PO ×2 (10:41)
== END 2017-01-25 11:00 | disposition short-term general hospital (02) | DRG 919 ==
LOC: C.EDB 21:42 → C.MSICU 01-25 00:23
PROVIDERS: ADMIT Internal Medicine; ATTEND Family Medicine
PROC: 4A023N7 Measurement of Cardiac Sampling and Pressure, Left Heart, Percutaneous Approach (ICD-10-PCS; principal; 2017-01-25)
PROC: B2131ZZ Fluoroscopy of Multiple Coronary Artery Bypass Grafts using Low Osmolar Contrast (ICD-10-PCS; principal; 2017-01-25)
PROC: B2111ZZ Fluoroscopy of Multiple Coronary Arteries using Low Osmolar Contrast (ICD-10-PCS; principal; 2017-01-25)
PROC: B2151ZZ Fluoroscopy of Left Heart using Low Osmolar Contrast (ICD-10-PCS; principal; 2017-01-25)
DX: K91.840 Postprocedural hemorrhage of a digestive system organ or structure following a digestive system procedure (principal); N18.6 End stage renal disease; I21.3 ST elevation (STEMI) myocardial infarction of unspecified site; D62 Acute posthemorrhagic anemia; I50.22 Chronic systolic (congestive) heart failure; I13.2 Hypertensive heart and chronic kidney disease with heart failure and with stage 5 chronic kidney disease, or end stage renal disease; Y83.2 Surgical operation with anastomosis, bypass or graft as the cause of abnormal reaction of the patient, or of later complication, without mention of misadventure at the time of the procedure; T45.515A Adverse effect of anticoagulants, initial encounter; Y92.230 Patient room in hospital as the place of occurrence of the external cause; I25.118 Atherosclerotic heart disease of native coronary artery with other forms of angina pectoris; I25.5 Ischemic cardiomyopathy; R94.5 Abnormal results of liver function studies; R11.0 Nausea; E10.22 Type 1 diabetes mellitus with diabetic chronic kidney disease; I70.0 Atherosclerosis of aorta; E10.65 Type 1 diabetes mellitus with hyperglycemia; E10.59 Type 1 diabetes mellitus with other circulatory complications; I48.0 Paroxysmal atrial fibrillation; G25.81 Restless legs syndrome; J45.909 Unspecified asthma, uncomplicated; G47.33 Obstructive sleep apnea (adult) (pediatric); F32.9 Major depressive disorder, single episode, unspecified; Z96.41 Presence of insulin pump (external) (internal); Z90.49 Acquired absence of other specified parts of digestive tract; Z99.2 Dependence on renal dialysis; Z95.1 Presence of aortocoronary bypass graft; Z98.890 Other specified postprocedural states; Z87.891 Personal history of nicotine dependence; Z79.82 Long term (current) use of aspirin; Z79.02 Long term (current) use of antithrombotics/antiplatelets; Z79.51 Long term (current) use of inhaled steroids; Z79.891 Long term (current) use of opiate analgesic; Z79.899 Other long term (current) drug therapy

== ENCOUNTER 2017-02-03 03:22 | Inpatient (IN) | payer OTHER ==
[2017-02-03] VITALS (16 sets, daily range): BP systolic 96–125; BP diastolic 50–73; PULSE 61–80; TEMP 36.5–37.2; O2SAT 95–99; Ht 162.6 cm; Wt 85.2 kg
[~2017-02-03] VITALS: Ht 162.6 cm; Wt 85.2 kg
[2017-02-03] MEDS ORDERED: SODIUM CHLORIDE 0.9% 500ML 500 ML IV STA (04:04)
--- NOTE | 2017-02-03 04:08 | EMERGENCY ROOM VISIT NOTE ---
History Report prepared by Dana: Keven Santamaria Under the Supervision of: Dr. Naomie Howard D.O. First contact with patient: 03:40 Chief Complaint: WEAKNESS Stated Complaint: LIGHTHEADED, WEAK History of Present Illness The patient is a 56 year old male who presents to the Emergency Room with complaints of weakness that began 1 and half hours ago. The patient has a complex past medical history recently. He had a bowel resection that caused a drop in his hemoglobin levels and had a myocardial infarction last week. He was seen in [place] and discharged two days ago for a low blood count secondary to the resection bleed. He was discharged with a hemoglobin of 8.6, but he was taken off Plavix. This morning, his woke up to the patient collapsed on top of her. He was diaphoretic and could not stand up. His blood pressure was 86 /45. Currently, he is having some intermittent chest pressure and shortness of breath. He denies any abdominal pain. He recently had dialysis yesterday. Source of History: patient, spouse/significant other Onset: 1 and a half hours ago Position: other (global) Symptom Intensity: moderate Quality: other (weakness) Timing: constant Associated Symptoms: + diaphoresis, + chest pain, + SOB, No LOC (Near syncope), No abdominal pain Review of Systems See HPI for pertinent positives & negatives. A total of 10 systems reviewed and were otherwise negative. Past Medical & Surgical Medical Problems: (1) ACS (acute coronary syndrome) (2) Acute renal failure syndrome (3) Asthma (4) Benign hypertension (5) Cholecystectomy (6) Chronic obstructive lung disease (7) Coronary artery bypass grafting (8) Diabetes mellitus (9) End stage renal failure on dialysis (10) Heart disease (11) Hepatitis (12) Hypotension (13) Incarcerated ventral hernia (14) Intermitent atrial fibrillation (15) Myocardial infarction (16) Obstructive sleep apnea syndrome (17) Peritoneal dialysis status (18) Peritonitis associated with peritoneal dialysis (19) Pneumonia (20) Secondary hyperparathyroidism of renal origin Surgical Problems: (1) History of bowel resection (2) History of hernia repair Family History Hypertension Kidney disease Social History Smoking Status: Unknown if Ever Smoked Alcohol Use: none Drug Use: none Marital Status: Housing Status: lives with family Occupation Status: disabled Current/Historical Medications Scheduled Acyclovir (Acyclovir), 400 MG PO BID Albuterol Sulfate (Proair Respiclick), 2 PUFFS INH QAM Aspirin (Aspirin Ec), 81 MG PO QPM B-Complex Vitamins (Vitamin B Complex), 1 CAP PO QAM Calcium Acetate (Phoslo 667 Mg), 667 MG PO TIDM Carvedilol (Coreg), 25 MG PO AMPM Clopidogrel (Plavix), 75 MG PO QAM Fluticasone Prop/Salmeterol (Advair Diskus 250/50 60 Dose), 1 PUFF INH Q12 Furosemide (Lasix), 20 MG PO QAM Hydralazine Hcl (Apresoline), 25 MG PO TID Insulin Aspart (novoLOG INSULIN PUMP ), 1 EA N/A UD Isosorbide Mononitrate Ext Rel (Imdur Ext Rel), 120 MG PO QAM Montelukast Sod (Montelukast Sodium), 10 MG PO QPM Multiple Vitamins W/ Minerals (Prorenal Qd), 1 CAP PO QAM Oxycodone/Acetaminophen 5MG/325MG (Percocet 5MG/325MG), 1 TABLET PO HS Pantoprazole (Pantoprazole Sodium), 40 MG PO QAM Ropinirole (Requip), 2 MG PO QPM Ropinirole Hydrochloride (Requip), 1 MG PO QAM Rosuvastatin Calcium (Crestor), 20 MG PO DAILY Sertraline HCl (Sertraline HCl), 50 MG PO QPM Scheduled PRN Glucagon (Glucagon Emergency Kit), 1 DOSE INJ UD PRN for HYPOGLYCEMIA Lactulose (Chronulac), 1 DOSE PO DIRECTED PRN for Constipation Levalbuterol (Levalbuterol HCl), 1 VIAL NEB TID PRN for COPD Lorazepam (Ativan), 0.5-1 MG PO BID PRN for Anxiety Nitroglycerin (Nitrostat), 0.4 MG UT UD PRN for Chest Pain Ondansetron Hcl (Zofran), 4 MG PO Q6H PRN for Nausea Polyethylene Glycol 3350 (Miralax), 17 GM PO DAILY PRN for Constipation Trazodone Hcl (Trazodone), 50 MG PO HS PRN for Sleep Allergies Coded Allergies: Penicillins (Verified Allergy, Severe, HIVES, 01/24/17) BEE STING (Verified Allergy, Intermediate, SWELLING, 01/24/17) DOES NOT REQUIRE EPIPEN PER FAMILY Physical Exam Vital Signs Date Time Temp Pulse Resp B/P (MAP) Pulse Ox O2 Delivery O2 Flow Rate FiO2 02/03/17 05:46 102/56 02/03/17 05:42 71 18 98 02/03/17 05:31 107/59 02/03/17 05:27 72 18 99 02/03/17 05:16 110/59 02/03/17 05:12 72 18 98 02/03/17 05:01 101/54 02/03/17 04:57 71 21 99 02/03/17 04:52 68 16 98 02/03/17 04:46 103/55 02/03/17 04:41 75/33 02/03/17 04:39 77/29 02/03/17 04:37 57 16 99 02/03/17 04:22 64 16 99 02/03/17 04:20 98/51 02/03/17 04:07 74 12 02/03/17 04:01 109/58 02/03/17 03:52 69 16 02/03/17 03:39 70 02/03/17 03:37 70 15 02/03/17 03:29 36.9 66 20 86/45 100 Room Air 02/03/17 03:28 86/45 Physical Exam HEENT: Head - normocephalic and atraumatic Pupils are equal, round, and reactive to light. Extraocular eye muscles are intact, and sclera are anicteric. Nose - moist nasal mucosa without discharge. Mouth - moist buccal mucosa. Oropharynx is nonerythematous and there is no tonsillar exudate or edema noted. Neck: Supple; no JVD, nuchal rigidity, cervical lymphadenopathy. Heart: Regular rate and rhythm. There is a normal S1 and S2 with no murmurs, clicks, or gallops appreciated. Lungs: Clear to auscultation bilaterally with no wheezes, rales, or rhonchi. Abdomen: Soft, completely nontender, nondistended, with good bowel sounds. There are no palpable pulsatile masses or hepatosplenomegaly. There is no guarding, rigidity, or rebound noted. Multiple healing surgical incisions. No signs of infections. Areas of ecchymosis diffusely. Extremities: No evidence of cyanosis or clubbing. There are easily palpable peripheral pulses. 1+ edema bilaterally. Skin: warm and dry with good turgor. Pale. No rashes. Medical Decision & Procedures ER Provider Diagnostic Interpretation: X-ray results as stated below per interpretation by me: CHEST 1 VIEW X-RAY: Cardiomegaly, evidence of congestive heart failure, post sternotomy changes. Per me. Laboratory Results 02/03/17 04:00 Red Blood Count 2.77, Mean Corpuscular Volume 90.6, Mean Corpuscular Hemoglobin 28.2, Mean Corpuscular Hemoglobin Concent 31.1, Mean Platelet Volume 11.0, Neutrophils (%) (Auto) 62.5, Lymphocytes (%) (Auto) 19.2, Monocytes (%) (Auto) 14.1, Eosinophils (%) (Auto) 2.5, Basophils (%) (Auto) 0.8, Neutrophils # (Auto ) 4.03, Lymphocytes # (Auto) 1.24, Monocytes # (Auto) 0.91, Eosinophils # (Auto ) 0.16, Basophils # (Auto) 0.05 02/03/17 04:00 Test 02/03/17 04:00 White Blood Count 6.45 K/uL (4.8-10.8) Red Blood Count 2.77 M/uL (4.7-6.1) Hemoglobin 7.8 g/dL (14.0-18.0) Hematocrit 25.1 % (42-52) Mean Corpuscular Volume 90.6 fL (80-100) Mean Corpuscular Hemoglobin 28.2 pg (25-34) Mean Corpuscular Hemoglobin Concent 31.1 g/dl (32-36) Platelet Count 322 K/uL (130-400) Mean Platelet Volume 11.0 fL (7.4-10.4) Neutrophils (%) (Auto) 62.5 % Lymphocytes (%) (Auto) 19.2 % Monocytes (%) (Auto) 14.1 % Eosinophils (%) (Auto) 2.5 % Basophils (%) (Auto) 0.8 % Neutrophils # (Auto) 4.03 K/uL (1.4-6.5) Lymphocytes # (Auto) 1.24 K/uL (1.2-3.4) Monocytes # (Auto) 0.91 K/uL (0.11-0.59) Eosinophils # (Auto) 0.16 K/uL (0-0.5) Basophils # (Auto) 0.05 K/uL (0-0.2) RDW Standard Deviation 48.2 fL (36.4-46.3) RDW Coefficient of Variation 14.5 % (11.5-14.5) Immature Granulocyte % (Auto) 0.9 % Immature Granulocyte # (Auto) 0.06 K/uL (0.00-0.02) Red Blood Cell Morphology Unremarkable Prothrombin Time 10.1 SECONDS (9.0-12.0) Prothromb Time International Ratio 0.9 (0.9-1.1) Activated Partial Thromboplast Time 23.1 SECONDS (21.0-31.0) Partial Thromboplastin Ratio 0.9 Anion Gap 9.0 mmol/L (3-11) Est Creatinine Clear Calc Drug Dose 35.9 ml/min Estimated GFR () 35.7 Estimated GFR (Non- 30.8 BUN/Creatinine Ratio 6.7 (10-20) Calcium Level 7.8 mg/dl (8.5-10.1) Total Bilirubin 0.3 mg/dl (0.2-1) Direct Bilirubin 0.2 mg/dl (0-0.2) Aspartate Amino Transf (AST/SGOT) 199 U/L (15-37) Alanine Aminotransferase (ALT/SGPT) 104 U/L (12-78) Alkaline Phosphatase 764 U/L (45-117) Total Creatine Kinase 50 U/L (39-308) Creatine Kinase MB 1.4 ng/ml (0.5-3.6) Creatine Kinase MB Ratio 2.8 (0-3.0) Troponin I 0.231 ng/ml (0-0.045) Pro-B-Type Natriuretic Peptide 3768 pg/ml (0-900) Total Protein 5.6 gm/dl (6.4-8.2) Albumin 2.7 gm/dl (3.4-5.0) Laboratory results per my review. Medications Administered Medications (Trade) Dose Ordered Sig/Shasha Route Start Time Stop Time Status Last Admin Dose Admin Sodium Chloride 500 ml @ 999 mls/hr Q31M STAT IV 02/03/17 04:04 02/03/17 04:34 DC 02/03/17 04:04 999 MLS/HR Procedure Sodium Chloride 500 ml @ 999 mls/hr IV ECG Indication: weakness Rate (beats per minute): 69 Rhythm: normal sinus Findings: no acute ischemic change, no ectopy Comparison ECG Date: 01/25/17 Change: no significant change ED Course 0340: Past medical records reviewed. The patient was evaluated in room A12. A complete history and physical exam was performed. An IV lock was initiated and labs are drawn as above. The patient was typed and screened for blood. A chest x-ray was performed. 0404: The patient was hypotensive and I Ordered Sodium Chloride 500 ml @ 999 mls /hr IV. 0444: I was notified that the patient's blood pressure has dropped to 75/33. I went to the room to evaluate the patient and his subsequent blood pressures were greater than 100 systolically. 0450: Upon reevaluation, I discussed findings and results with him. He verbalized agreement of the treatment plan. I spoke with Dr. Roldan of the [facility] Hospitalist Service. The patient will be evaluated for further management and care. Medical Decision The patient is a 56 year old male who presents to the ED with weakness. Differential diagnosis includes anemia, hypovolemia, syncope, dehydration, and electrolyte imbalance secondary to dialysis. I attest that I have personally reviewed the patient's current medication list. Patient was found to have low blood pressure on screening and does not require follow-up for hypertension. Laboratory Results Showed: Normal White Blood Cell count, hemoglobin down to 7.8 , normal platelet count, creatinine 2.3, glucose 245, AST 199, ALT 104, alc phos 764, troponin 0.231, BNP 3768, normal coagulation studies. The patient was found to be significantly anemic and will require transfusion of packed red blood cells. Chest x-ray shows evidence of heart failure. The patient has a BNP greater than 3000. The patient was consented for a blood transfusion. His blood pressure remains stable at this time. I discussed the case with the [facility] hospitalist and they will evaluate for further management. Consults Time Called: [phone] Consulting Physician: Dr. Roldan - [facility] Returned Call: [phone] He will be evaluating the patient for further management and care. Impression Primary Impression: Anemia Additional Impression: Chest pressure Scribe Attestation The scribe's documentation has been prepared under my direction and personally reviewed by me in its entirety. I confirm that the note above accurately reflects all work, treatment, procedures, and medical decision making performed by me. Departure Information Dispostion Being Evaluated By Hospitalist Referrals Arielle Whittaker MD (PCP) Patient Instructions My [facility] Problem Qualifiers
[2017-02-03 04:14] LABS: BASO % 0.8 %; BASO ABS # 0.05 K/uL (0-0.2); EOS % 2.5 %; HEMATOCRIT 25.1 % (42-52); IG% 0.9 %; LYMPH % 19.2 %; LYMPH ABS # 1.24 K/uL (1.2-3.4); MEAN CELL VOLUME 90.6 fL (80-100); MEAN CORPUSCULAR HEMOGLOBIN 28.2 pg (25-34); MEAN CORPUSCULAR HGB CONC 31.1 g/dl (32-36); MONO % 14.1 %; NEUT % 62.5 %; PLATELET COUNT 322 K/uL (130-400); RED BLOOD COUNT 2.77 M/uL (4.7-6.1); WHITE BLOOD COUNT 6.45 K/uL (4.8-10.8)
[2017-02-03 04:26] LABS: INR 0.9 (0.9-1.1); PARTIAL THROMBOPLASTIN RATIO 0.9; PROTHROMBIN TIME (PATIENT) 10.1 SECONDS (9.0-12.0)
[2017-02-03 04:34] LABS: BUN/CREATININE RATIO 6.7 (10-20); CALCIUM 7.8 mg/dl (8.5-10.1); CREATININE 2.3 mg/dl (0.60-1.40); POTASSIUM 3.7 mmol/L (3.5-5.1)
[2017-02-03] MEDS ORDERED: B-COTAB18 PO ×2 (04:40)
[2017-02-03 04:41] LABS: COMPLETE YES
[2017-02-03] MEDS ORDERED: CALC667C4 PO ×2 (04:42)
[2017-02-03] MEDS ORDERED: CLOP1TAB15 PO ×2 (04:44)
[2017-02-03 04:52] LABS: CKMB/CK RATIO 2.8 (0-3.0)
[2017-02-03] MEDS ORDERED: POLY335019 PO ×2 (04:57)
[2017-02-03] MEDS ORDERED: GLUCAGON FOR INJ 1 MG VIAL SQ PRN (06:00)
[2017-02-03] MEDS ORDERED: NovoLOG INSULIN PUMP SCH (06:00)
[2017-02-03] MEDS ORDERED: ONDANSETRON INJ 2 MG/ML 2 ML VIAL IV PRN (06:00)
[2017-02-03] MEDS ORDERED: GLUCOSE 40% GEL 15 GM TUBE PO PRN (06:00)
[2017-02-03] MEDS ORDERED: DEXTROSE 50% 50 ML SYR IV PRN (06:00)
[2017-02-03] MEDS ORDERED: GLUCOSE 10 TABS/TUBE PO PRN (06:00)
[2017-02-03] MEDS ORDERED: LEVALBUTEROL 1.25MG/3ML NEB INH PRN (06:00)
--- NOTE | 2017-02-03 06:32 | DIAGNOSTIC IMAGING REPORT ---
CHEST ONE VIEW PORTABLE CLINICAL HISTORY: Shortness of breath. Lightheadedness. COMPARISON STUDY: 01/24/2017 FINDINGS: The heart remains enlarged. There is mild central vascular prominence without evidence of overt failure.. There is no focal pulmonary consolidation. No pleural effusions are visualized.[There are left midlung zone atelectatic changes. IMPRESSION: Cardiomegaly. Mild central vascular prominence without evidence of overt failure. No evidence of focal pulmonary consolidation Electronically signed by: Mahad Velasquez M.D. 02/03/2017 6:31 AM Dictated Date/Time: 02/03/2017 6:30 AM
[2017-02-03] MEDS ORDERED: INSULIN ASPART 100 UNITS/ML VIAL SC PRN (06:45)
[2017-02-03] MEDS ORDERED: INSULIN ASPART 100 UNITS/ML 3 ML PEN SC SCH (07:00)
[2017-02-03] MEDS: ACYCLOVIR 400 MG TAB PO SCH ×2 (07:58→21:27)
[2017-02-03] MEDS: FLUTICASONE/SALMETEROL 250/50 (ADVAIR) 14 PUFF/1 INHALER INH SCH ×2 (07:58→21:24)
[2017-02-03] MEDS: NovoLOG INSULIN PUMP SCH ×4 (08:00→21:27)
[2017-02-03] MEDS: SODIUM CHLORIDE 0.9% 1000ML 1,000 ML IV SCH ×2 (08:02→19:32)
--- NOTE | 2017-02-03 09:00 | History and Physical ---
History & Physical Date & Time of Service: Feb 03, 2017 at 08:41 Chief Complaint: Anemia, Hypotension Primary Care Physician: Arielle Whittaker MD History of Present Illness Source: patient, spouse The patient is a 56-year-old male presents emergency department with weakness, fatigue, chest tightness and shortness of breath that began about one half hours prior to arrival. He has a history of a recent presentation to [facility] for abdominal discomfort and subsequently transferred to [facility] for partial small bowel resection and hernia repair for an incarcerated femoral hernia on 01/12/2017. He was subsequently readmitted to [facility] on 2016 for a GI bleed and hemoglobin 7.8. The bleeding was thought to be secondary to the anastomosis of the previous surgery, as he underwent a negative EGD received a total 4 units of packed blood cells during that admission. 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 His Plavix has been held due to GI bleed, but his aspirin has been continued. He also was previously on peritoneal dialysis, which was discontinued after the above surgery, and he is presently on hemodialysis Monday, and Monday. Past Medical/Surgical History Medical Problems: (1) Acute renal failure syndrome Status: Resolved (2) Asthma Status: Chronic (3) Benign hypertension Status: Chronic (4) Cholecystectomy Status: Resolved (5) Chronic obstructive lung disease Status: Chronic (6) Coronary artery bypass grafting Status: Resolved (7) Diabetes mellitus Status: Chronic (8) End stage renal failure on dialysis Status: Chronic (9) Heart disease Status: Chronic (10) Myocardial infarction Status: Chronic (11) Obstructive sleep apnea syndrome Status: Chronic (12) Peritoneal dialysis status Status: Chronic (13) Pneumonia Status: Chronic Surgical Problems: (1) History of bowel resection Status: Resolved (2) History of hernia repair Status: Resolved Family History Hypertension Kidney disease Social History Smoking Status: Never Smoker Smokeless Tobacco Use: No Drug Use: none Marital Status: Housing status: lives with family Occupational Status: disabled Immunizations History of Influenza Vaccine: Yes Influenza Vaccine Date: May 10, 2012 History of Tetanus Vaccine?: Yes Tetanus Immunization Date: May 08, 2006 History of Pneumococcal: Yes Pneumococcal Date: May 10, 2006 History of Hepatitis B Vaccine: Yes Multi-Drug Resistant Organisms History of MDRO: No Allergies Coded Allergies: Penicillins (Verified Allergy, Severe, HIVES, 01/24/17) BEE STING (Verified Allergy, Intermediate, SWELLING, 01/24/17) DOES NOT REQUIRE EPIPEN PER FAMILY Home Medications Scheduled Acyclovir (Acyclovir), 400 MG PO BID Albuterol Sulfate (Proair Respiclick), 2 PUFFS INH QAM Aspirin (Aspirin Ec), 81 MG PO QPM B-Complex Vitamins (Vitamin B Complex), 1 CAP PO QAM Calcium Acetate (Phoslo 667 Mg), 667 MG PO TIDM Carvedilol (Coreg), 25 MG PO AMPM Clopidogrel (Plavix), 75 MG PO QAM Fluticasone Prop/Salmeterol (Advair Diskus 250/50 60 Dose), 1 PUFF INH Q12 Furosemide (Lasix), 20 MG PO QAM Hydralazine Hcl (Apresoline), 25 MG PO TID Insulin Aspart (novoLOG INSULIN PUMP ), 1 EA N/A UD Isosorbide Mononitrate Ext Rel (Imdur Ext Rel), 120 MG PO QAM Montelukast Sod (Montelukast Sodium), 10 MG PO QPM Multiple Vitamins W/ Minerals (Prorenal Qd), 1 CAP PO QAM Oxycodone/Acetaminophen 5MG/325MG (Percocet 5MG/325MG), 1 TABLET PO HS Pantoprazole (Pantoprazole Sodium), 40 MG PO QAM Ropinirole (Requip), 2 MG PO QPM Ropinirole Hydrochloride (Requip), 1 MG PO QAM Rosuvastatin Calcium (Crestor), 20 MG PO DAILY Sertraline HCl (Sertraline HCl), 50 MG PO QPM Scheduled PRN Glucagon (Glucagon Emergency Kit), 1 DOSE INJ UD PRN for HYPOGLYCEMIA Lactulose (Chronulac), 1 DOSE PO DIRECTED PRN for Constipation Levalbuterol (Levalbuterol HCl), 1 VIAL NEB TID PRN for COPD Lorazepam (Ativan), 0.5-1 MG PO BID PRN for Anxiety Nitroglycerin (Nitrostat), 0.4 MG UT UD PRN for Chest Pain Ondansetron Hcl (Zofran), 4 MG PO Q6H PRN for Nausea Polyethylene Glycol 3350 (Miralax), 17 GM PO DAILY PRN for Constipation Trazodone Hcl (Trazodone), 50 MG PO HS PRN for Sleep Review of Systems The patient denies palpitations, cough, sore throat, fevers, chills, sweats, nausea, vomiting, abdominal pain, pelvic pain, blood in urine or stool, dysuria , urinary frequency or urgency, headache, memory loss, rash, focal weakness, numbness or tingling in arms or legs, arthralgias or myalgias, back or neck pain , night sweats, or allergy symptoms. The review of systems is otherwise negative other than for that already noted above, and at least 10 systems have been reviewed. Physical Exam Vital Signs Date Time Temp Pulse Resp B/P (MAP) Pulse Ox O2 Delivery O2 Flow Rate FiO2 02/03/17 08:16 36.7 69 20 102/55 96 02/03/17 07:27 74 18 97 Room Air 02/03/17 07:10 36.9 74 18 105/59 98 02/03/17 06:39 36.5 70 20 110/70 98 Room Air 02/03/17 06:14 36.5 80 18 114/64 98 02/03/17 06:11 36.5 73 18 114/61 02/03/17 06:09 36.5 67 18 105/60 98 02/03/17 06:06 105/60 02/03/17 06:01 94/56 02/03/17 06:00 36.5 61 18 96/50 99 02/03/17 05:58 96/50 02/03/17 05:55 100/56 02/03/17 05:52 36.5 73 18 111/62 98 02/03/17 05:50 111/62 02/03/17 05:46 102/56 02/03/17 05:42 71 18 98 02/03/17 05:31 107/59 02/03/17 05:27 72 18 99 02/03/17 05:16 110/59 02/03/17 05:12 72 18 98 02/03/17 05:01 101/54 02/03/17 04:57 71 21 99 02/03/17 04:52 68 16 98 6/16/17 04:46 103/55 02/03/17 04:41 75/33 02/03/17 04:39 77/29 02/03/17 04:37 57 16 99 02/03/17 04:22 64 16 99 02/03/17 04:20 98/51 02/03/17 04:07 74 12 02/03/17 04:01 109/58 02/03/17 03:52 69 16 02/03/17 03:39 70 02/03/17 03:37 70 15 02/03/17 03:29 36.9 66 20 86/45 100 Room Air 02/03/17 03:28 86/45 The patient is awake, well-developed and adequately nourished, alert and oriented 3, normocephalic and atraumatic, lying in bed and in no acute distress. HEENT--PERRL, EOMI, mucous membranes and oropharynx normal. Neck--supple, no JVD or bruits, thyroid normal, trachea midline, no adenopathy. Heart--normal S1 and S2, no extra beats, no murmurs, rubs or gallops. Lungs--few crackles at the bases bilaterally, no respiratory distress, no accessory muscle use. Abdomen--normal bowel sounds and soft, nontender and nondistended, mildly tympanitic. Extremities--no cyanosis, clubbing.there is bilaterally pretibial 1+ pitting edema. Dermatologic--normal skin turgor, normal color, warm and dry, no abnormal lymph nodes, no rash. Neurologic--cranial nerves II through XII grossly intact. Rheumatologic--normal range of motion, nontender, muscles and joints. Psychiatric--normal affect. Diagnostics Laboratory Results Results Past 24 Hours Test 02/03/17 03:42 02/03/17 04:00 02/03/17 05:55 02/03/17 07:08 Range/Units Bedside Glucose 267 265 70-99 mg/dl White Blood Count 6.45 4.8-10.8 K/uL Red Blood Count 2.77 4.7-6.1 M/uL Hemoglobin 7.8 14.0-18.0 g/dL Hematocrit 25.1 42-52 % Mean Corpuscular Volume 90.6 80-100 fL Mean Corpuscular Hemoglobin 28.2 25-34 pg Mean Corpuscular Hemoglobin Concent 31.1 32-36 g/dl Platelet Count 322 130-400 K/uL Mean Platelet Volume 11.0 7.4-10.4 fL Neutrophils (%) (Auto) 62.5 % Lymphocytes (%) (Auto) 19.2 % Monocytes (%) (Auto) 14.1 % Eosinophils (%) (Auto) 2.5 % Basophils (%) (Auto) 0.8 % Neutrophils # (Auto) 4.03 1.4-6.5 K/uL Lymphocytes # (Auto) 1.24 1.2-3.4 K/uL Monocytes # (Auto) 0.91 0.11-0.59 K/uL Eosinophils # (Auto) 0.16 0-0.5 K/uL Basophils # (Auto) 0.05 0-0.2 K/uL RDW Standard Deviation 48.2 36.4-46.3 fL RDW Coefficient of Variation 14.5 11.5-14.5 % Immature Granulocyte % (Auto) 0.9 % Immature Granulocyte # (Auto) 0.06 0.00-0.02 K/uL Red Blood Cell Morphology Unremarkable Prothrombin Time 10.1 9.0-12.0 SECONDS Prothromb Time International Ratio 0.9 0.9-1.1 Activated Partial Thromboplast Time 23.1 21.0-31.0 SECONDS Partial Thromboplastin Ratio 0.9 Sodium Level 136 136-145 mmol/L Potassium Level 3.7 3.5-5.1 mmol/L Chloride Level 97 98-107 mmol/L Carbon Dioxide Level 30 21-32 mmol/L Anion Gap 9.0 3-11 mmol/L Blood Urea Nitrogen 15 7-18 mg/dl Creatinine 2.30 0.60-1.40 mg/dl Est Creatinine Clear Calc Drug Dose 35.9 ml/min Estimated GFR () 35.7 Estimated GFR (Non- 30.8 BUN/Creatinine Ratio 6.7 10-20 Random Glucose 245 70-99 mg/dl Calcium Level 7.8 8.5-10.1 mg/dl Total Bilirubin 0.3 0.2-1 mg/dl Direct Bilirubin 0.2 0-0.2 mg/dl Aspartate Amino Transf (AST/SGOT) 199 15-37 U/L Alanine Aminotransferase (ALT/SGPT) 104 12-78 U/L Alkaline Phosphatase 764 45-117 U/L Total Creatine Kinase 50 39-308 U/L Creatine Kinase MB 1.4 0.5-3.6 ng/ml Creatine Kinase MB Ratio 2.8 0-3.0 Troponin I 0.231 0-0.045 ng/ml Pro-B-Type Natriuretic Peptide 3768 0-900 pg/ml Total Protein 5.6 6.4-8.2 gm/dl Albumin 2.7 3.4-5.0 gm/dl Diagnostic Radiology Patient Name: TOMAS WELSH Unit Number: [id number] Dictated: 02/03/17629 Transcribed: 02/03/17629 ARG Printed Date/Time: [~ rep prt dt]/[~ rep prt tm] [~ rep ct labl] - [~ rep ct ivnm] [facility] [place] [address] Dictated: 02/03/17629 Transcribed: 02/03/17629 ARG Printed Date/Time: [~ rep prt dt]/[~ rep prt tm] [~ rep ct labl] - [~ rep ct ivnm] CHEST ONE VIEW PORTABLE CLINICAL HISTORY: Shortness of breath. Lightheadedness. COMPARISON STUDY: 01/24/2017 FINDINGS: The heart remains enlarged. There is mild central vascular prominence without evidence of overt failure.. There is no focal pulmonary consolidation. No pleural effusions are visualized.[There are left midlung zone atelectatic changes. IMPRESSION: Cardiomegaly. Mild central vascular prominence without evidence of overt failure. No evidence of focal pulmonary consolidation Electronically signed by: Mahad Velasquez M.D. 02/03/2017 6:31 AM Dictated Date/Time: 02/03/2017 6:30 AM The status of this report is Signed. Draft = Not yet reviewed or approved by Radiologist. Signed = Reviewed and approved by Radiologist. <AttendingPhy>Nick Roldan M.D.</AttendingPhy> <FamilyPhy>Arielle Whittaker MD</FamilyPhy> <PrimaryPhy>Arielle Whittaker MD</PrimaryPhy> <UnitNumber> [id number]</UnitNumber> <VisitNumber>[id number]</VisitNumber> <PatientName> TOMAS WELSH</PatientName> <DateOfBirth>1960</DateOfBirth> <Location> C.2T</Location> <ServiceDate>02/03/17</ServiceDate> <MNE>ESINDI</MNE> < OrderingPhy>Naomie Howard D.O.</OrderingPhy> <OrderingPhyMNE>f rep ord dr campos< /OrderingPhyMNE> <DictatingPhyMNE>f rep dict dr campos</DictatingPhyMNE> <CCListMNE >f rep ct andres</CCListMNE> <AdmittingPhyMNE>f pt admit dr campos</AdmittingPhyMNE> < AttendingPhyMNE>f pt attend dr campos</AttendingPhyMNE> <ConsultingPhyMNE>f pt consult dr campos</ConsultingPhyMNE> <FamilyPhyMNE>f pt fam dr campos</FamilyPhyMNE> <OtherPhyMNE>f pt other dr campos</OtherPhyMNE> < PrimaryPhyMNE>f pt prim care dr campos</PrimaryPhyMNE> <ReferringPhyMNE>f pt referring dr campos</ReferringPhyMNE> EKG EKG shows normal sinus rhythm at 69 beats per, ST-T segment changes in the lateral leads, nonspecific intraventricular conduction delay. Impression Assessment and Plan Symptomatic anemia secondary to GI bleed--his target hemoglobin should be 10 with his significant CAD. He'll be transfused 2 units packed red blood cells, will follow hemoglobin. Follow H&H every 6 hours. He'll be kept primarily nothing by mouth except for meds. Pantoprazole 40 mg IV daily. CAD/hypertension/CABG/intermittent atrial fibrillation/history of LA--continue aspirin 81 mg by mouth every a.m.. His blood pressure emergency department was initially systolic 70s, which improved to 100s after IV fluid bolus. We'll hold carvedilol 25 mg by mouth twice a day, furosemide 20 mg by mouth every morning, hydralazine 25 mg by mouth 3 times a day, Imdur extended release 120 mg by mouth every morning, and continued all Plavix 70 mg by mouth every morning. We'll consult his rn labor and delivery Dr. Shepherd. ESRD on HD--consult his design editor Dr. Azul. Normal dialysis days are Monday, and Monday. Diabetes mellitus--he will continue his NovoLog insulin pump, and reactive Accu- Cheks before meals and at bedtime and will use his own coverage scale. COPD--continue Advair discus and have available Xopenex/Atrovent nebulizer every 2 hours when necessary. RLS--for now hold ropinirole. Hypercholesterolemia--for now hold Crestor. Depression--hold sertraline 50 mg by mouth every afternoon. Continue acyclovir 400 mg by mouth twice a day. Level of Care Telemetry Advanced Directives Existing Advance Directive: No Existing Living Will: No Existing Power of Second Hand Paper Machine: No Resuscitation Status FULL RESUSCITATION VTE Prophylaxis VTE Risk Assessment Done? Y/N: Yes Risk Level: Moderate Given or contraindicated: SCD's
[2017-02-03] MEDS: PANTOprazole INJ 40 MG in SYRINGE 0 ML IV SCH (11:30)
--- NOTE | 2017-02-03 11:38 | Nephrology Consultation ---
Nephrology Consultation Date & Providers Date of Consultation: Feb 03, 2017. Primary Care Provider: Arielle Whittaker MD Referring Provider: Reason for Consultation To provide inpatient HD for this patient w/ ESRD and assist w/ his medical management History of Present Illness Mr. Caro is a 56 year old white male who is seen at the request of Dr. Roldan to provide inpatient HD during his hospitalization and assist with his medical management. Medical records in the hospital EMR were reviewed today and are summarized as follows: Mr. Caro has a complex medical history. This includes inoperable 3 vessel ASCVD, AODM, HTN, COPD, ROBERT and ESRD. Patient developed cardiorenal syndrome and required initiation of IHD 09/02. He transitioned to [facility] 01/31. Earlier this month he was admitted w/ abdominal pain. He was found to have an incarcerated abdominal hernia at the site of his PD catheter. He was transferred to [facility] where he underwent resection of the ischemic bowel and removal of his PD catheter. He was placed back on IHD. Shortly after returning home he began to experience melena. He returned to the hospital and was found to be profoundly anemic. Cardiac enzymes were elevated. He was again transferred to [facility]. No surgical intervention was required. His condition stablized with blood transfusion. He was discharged to home 02/01 and received IHD the following day. Heparin was limited to 3,000 unit bolus at the start of dialysis. He was hemodynamically stable throughout his treatment. Last night Mr. Caro was awakened by a low blood sugar. When he got out of bed to eat he suffered a syncopal event. His called 911 and the patient was transported to the ED. Upon presentation to the hospital Mr. Caro was again found to be anemic w/ Hgb 7.8. He notes continued melena. Past Medical/Surgical History Medical: # ESRD due to diabetic nephropathy, hypertensive nephrosclerosis and advanced ICM. 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 Jean Marie Gray / [place]) # ASCVD s/p CABG x 2 2005. [employer] Attendant = Dr. Bruce Shepherd # COPD # ROBERT Surgical: # PD catheter removed 02/04 due to incarcerated hernia # CAPD catheter placed 12/[address] Torres # CABG x 2 2005 Allergies Coded Allergies: Penicillins (Verified Allergy, Severe, HIVES, 01/24/17) BEE STING (Verified Allergy, Intermediate, SWELLING, 01/24/17) DOES NOT REQUIRE EPIPEN PER FAMILY Inpatient Medications Current Inpatient Medications Medications (Trade) Dose Ordered Sig/Shasha Route Start Time Stop Time Status Last Admin Dose Admin Sodium Chloride 1,000 ml @ 80 mls/hr [id number] IV 02/03/17 06:30 03/05/17 06:29 02/03/17 08:02 80 MLS/HR Acyclovir (Zovirax Tab) 400 mg BID PO 02/03/17 09:00 03/05/17 08:59 02/03/17 07:58 400 MG Salmeterol Xinafoate/ Fluticasone (Advair Diskus 250/50 Inh) 1 puff Q12 INH 02/03/17 09:00 03/05/17 08:59 02/03/17 07:58 1 PUFF Levalbuterol (Xopenex 1.25MG/ 3ML Neb) 1.25 mg QID PRN INH 02/03/17 06:00 03/05/17 05:59 02/03/17 07:26 1.25 MG Lorazepam (Ativan Tab) 0.5 mg QID PRN PO 02/03/17 06:00 03/05/17 05:59 Ondansetron HCl (Zofran Inj) 4 mg Q6H PRN IV 02/03/17 06:00 03/05/17 05:59 Glucose (Glucose 40% Gel) UD PRN PO 02/03/17 06:00 03/05/17 05:59 Glucose (Glucose Chew Tab) 1 tabs UD PRN PO 02/03/17 06:00 03/05/17 05:59 Dextrose (Dextrose 50% 50ML Syringe) 50 ml UD PRN IV 02/03/17 06:00 03/05/17 05:59 Glucagon (Glucagon Inj) 1 mg UD PRN SQ 02/03/17 06:00 03/05/17 05:59 Pantoprazole Sodium 40 mg/ Syringe 10 ml @ 5 mls/min DAILY@11 IV 02/03/17 11:00 03/05/17 10:59 Insulin Aspart (novoLOG INSULIN PUMP) 1 ea ACHS N/A 02/03/17 07:00 03/05/17 06:59 02/03/17 08:00 1 EA Insulin Aspart (novoLOG ASPART) SLIDING SCALE PRN PRN SC 02/03/17 06:45 03/05/17 06:44 Family History Hypertension Kidney disease Negative for CKD / ESRD Social History Smoking Status: Never Smoker Smokeless Tobacco Use: No Drug Use: none Marital Status: Housing Status: lives with family Occupation: disabled . Medically disabled. Former smoker (quit 2000). Review of Systems Constitutional: No fever Respiratory: No cough Cardiovascular: No chest pain Abdomen: No pain, No nausea, No vomiting A complete review of systems was performed. Pertinent positives are noted above. All other systems are negative. Physical Exam Date Time Temp Pulse Resp B/P (MAP) Pulse Ox O2 Delivery O2 Flow Rate FiO2 02/03/17 11:06 37.0 67 20 106/61 95 02/03/17 10:31 36.8 68 20 110/61 96 02/03/17 09:30 37.0 69 22 119/63 02/03/17 09:03 36.8 69 20 116/69 99 02/03/17 08:42 36.8 73 18 111/57 99 02/03/17 08:16 36.7 69 20 102/55 96 02/03/17 07:27 74 18 97 Room Air 02/03/17 07:10 36.9 74 18 105/59 98 02/03/17 06:39 36.5 70 20 110/70 98 Room Air 02/03/17 06:14 36.5 80 18 114/64 98 02/03/17 06:11 36.5 73 18 114/61 02/03/17 06:09 36.5 67 18 105/60 98 02/03/17 06:06 105/60 02/03/17 06:01 94/56 02/03/17 06:00 36.5 61 18 96/50 99 02/03/17 05:58 96/50 02/03/17 05:55 100/56 02/03/17 05:52 36.5 73 18 111/62 98 02/03/17 05:50 111/62 02/03/17 05:46 102/56 02/03/17 05:42 71 18 98 02/03/17 05:31 107/59 02/03/17 05:27 72 18 99 02/03/17 05:16 110/59 02/03/17 05:12 72 18 98 02/03/17 05:01 101/54 02/03/17 04:57 71 21 99 02/03/17 04:52 68 16 98 02/03/17 04:46 103/55 02/03/17 04:41 75/33 02/03/17 04:39 77/29 02/03/17 04:37 57 16 99 02/03/17 04:22 64 16 99 02/03/17 04:20 98/51 02/03/17 04:07 74 12 02/03/17 04:01 109/58 02/03/17 03:52 69 16 02/03/17 03:39 70 02/03/17 03:37 70 15 02/03/17 03:29 36.9 66 20 86/45 100 Room Air 02/03/17 03:28 86/45 General Appearance: + pertinent finding (heavyset) Head: normocephalic, atraumatic Eyes: PERRL Neck: no adenopathy Respiratory/Chest: lungs clear, no respiratory distress Cardiovascular: regular rate, rhythm Abdomen/GI: normal bowel sounds (surgical incision has healed), non tender, soft Extremities/Musculoskelatal: no calf tenderness, no pedal edema, + pertinent finding (AVF + bruit) Neurologic/Psych: alert, oriented x 3 Laboratory Results Last 24 Hours Test 02/03/17 03:42 02/03/17 04:00 02/03/17 05:55 02/03/17 07:08 Bedside Glucose 267 mg/dl 265 mg/dl White Blood Count 6.45 K/uL Red Blood Count 2.77 M/uL Hemoglobin 7.8 g/dL Hematocrit 25.1 % Mean Corpuscular Volume 90.6 fL Mean Corpuscular Hemoglobin 28.2 pg Mean Corpuscular Hemoglobin Concent 31.1 g/dl Platelet Count 322 K/uL Mean Platelet Volume 11.0 fL Neutrophils (%) (Auto) 62.5 % Lymphocytes (%) (Auto) 19.2 % Monocytes (%) (Auto) 14.1 % Eosinophils (%) (Auto) 2.5 % Basophils (%) (Auto) 0.8 % Neutrophils # (Auto) 4.03 K/uL Lymphocytes # (Auto) 1.24 K/uL Monocytes # (Auto) 0.91 K/uL Eosinophils # (Auto) 0.16 K/uL Basophils # (Auto) 0.05 K/uL RDW Standard Deviation 48.2 fL RDW Coefficient of Variation 14.5 % Immature Granulocyte % (Auto) 0.9 % Immature Granulocyte # (Auto) 0.06 K/uL Red Blood Cell Morphology Unremarkable Prothrombin Time 10.1 SECONDS Prothromb Time International Ratio 0.9 Activated Partial Thromboplast Time 23.1 SECONDS Partial Thromboplastin Ratio 0.9 Sodium Level 136 mmol/L Potassium Level 3.7 mmol/L Chloride Level 97 mmol/L Carbon Dioxide Level 30 mmol/L Anion Gap 9.0 mmol/L Blood Urea Nitrogen 15 mg/dl Creatinine 2.30 mg/dl Est Creatinine Clear Calc Drug Dose 35.9 ml/min Estimated GFR () 35.7 Estimated GFR (Non- 30.8 BUN/Creatinine Ratio 6.7 Random Glucose 245 mg/dl Calcium Level 7.8 mg/dl Total Bilirubin 0.3 mg/dl Direct Bilirubin 0.2 mg/dl Aspartate Amino Transf (AST/SGOT) 199 U/L Alanine Aminotransferase (ALT/SGPT) 104 U/L Alkaline Phosphatase 764 U/L Total Creatine Kinase 50 U/L Creatine Kinase MB 1.4 ng/ml Creatine Kinase MB Ratio 2.8 Troponin I 0.231 ng/ml Pro-B-Type Natriuretic Peptide 3768 pg/ml Total Protein 5.6 gm/dl Albumin 2.7 gm/dl Impression (1) GI bleed (2) ESRD on hemodialysis (3) Anemia (4) Coronary artery disease (5) Chronic obstructive lung disease (6) Diabetes mellitus (7) Obstructive sleep apnea syndrome Mr. Caro was admitted to [facility] following a witnessed syncopal event. He has ongoing GI bleeding and presented w/ anemia. Recommendations END STAGE RENAL DISEASE: -- Will provide heparin free HD in am ANEMIA: -- Recommend blood transfusion to maintain Hgb > 10 -- Consider consultation w/ GI. Patient may require endoscopy if bleeding persists -- Monitor serial H&H HYPERTENSION: -- Blood pressure is currently acceptable without medications. Will monitor. IDDM: -- Sliding scale insulin
[2017-02-03 11:47] LABS: HEMATOCRIT 29.7 % (42-52)
[2017-02-03] MEDS ORDERED: NURSING VERBAL MED ORDER ONE (13:45)
[2017-02-03] MEDS: ROPINIROLE HCL 1 MG TAB PO SCH ×2 (15:31→21:27)
--- NOTE | 2017-02-03 15:33 | CARDIOLOGY CONSULTATION ---
DATE OF CONSULTATION: 02/03/2017 INDICATIONS: Symptomatic anemia, complex cardiac history. HISTORY OF PRESENT ILLNESS: The patient is a 56-year-old male with past medical history notable for severe diabetic atherosclerotic coronary artery disease, status post coronary artery bypass grafting in 2005, receiving a HDZ graft to the LAD, saphenous vein to left circumflex with poor surgical targets and incomplete revascularization, chronic class 2-3 angina pectoris, end-stage renal disease, on dialysis, has severe asthmatic lung disease, type 1 diabetes mellitus with nephropathy, remote atrial fibrillation, was recently hospitalized with multiple issues this spring with recurring episodes of small-bowel obstruction requiring surgical repair on 01/12/2017 partial small-bowel obstruction and hernia repair. Postoperative course has been notable for recurrent lower GI bleeding with subsequent rehospitalization x2 and ultimate extended stay at [facility], having been discharged 2 days prior to this visit. He did require over the course of the stay a total of 7 units of packed red cells for maintenance of hemoglobin. During last stay he presented with symptoms of chest pain and acute myocardial instability. Cardiac catheterization was performed on 01/25/2017 which demonstrated diffuse [place] vessel disease, occluded left anterior descending at mid segment, 80% small diffusely diseased diagonal branch, patent HDZ graft to the LAD, patent saphenous vein graft to an obtuse marginal with occluded obtuse marginal, small second obtuse marginal at 80% and 90% stenosis, RCA was chronically occluded with distal vessel filling via collaterals. The patient presents now after having been recently discharged to home. Notes he underwent dialysis on the day of admission. That evening was slumped over his in bed at night, was unresponsive. He was transported to the Emergency Room. Initial presentation found the patient to be hypotensive with systolic blood pressures in the 70s. He has now received blood and fluid resuscitation and is feeling improved this morning and hemoglobin was 7.8 on initial presentation. He denies current chest pains or chest pains in the last 24 hours. Notes no tachypalpitations. Does have very little recollection of the events from prior evening. Notes no unexplained fevers or infections. Did feel he tolerated dialysis relatively well yesterday. ALLERGIES: BEE STINGS AND PENICILLIN. REVIEW OF SYSTEMS: As per HPI and otherwise negative. MEDICATIONS: Prior to hospitalization were notable for recent discontinuation of Plavix, continuation of chronic aspirin 81 mg per day, B complex vitamin, calcium acetate, Carvedilol 25 mg at a.m. and p.m., furosemide 20 mg q.a.m., hydralazine 25 t.i.d., Requip 1 mg a.m., 2 mg p.m. and Rosuvastatin 20 mg daily, as well as sertraline 50 mg q. p.m. and trazodone p.r.n. sleep. PAST SURGICAL HISTORY: Notable for prior coronary artery bypass grafting as described in the HPI, carpal tunnel surgery, right rotator cuff repair, peritoneal dialysis catheter insertion as well as hemodialysis catheter placement, laparoscopic cholecystectomy in 2006, cataract extractions, vasectomy as described recent, exploratory laparotomy, small-bowel resection, hernia repair in December 2016. FAMILY HISTORY: Noncontributory. SOCIAL HISTORY: The patient is a nonsmoker since 2005. Uses no significant alcoholic beverages. PHYSICAL EXAMINATION: VITAL SIGNS: Heart rate this morning was 57, blood pressure was 77/29, blood pressure currently is 106/61. Telemetry reveals no arrhythmias. NECK: Neck is thin. There is no jugular venous distention. There are no carotid bruits. LUNGS: Reveal diminished breath sounds but no rhonchi, rale or wheeze. CARDIOVASCULAR: Regular. There is no S3 gallop. ABDOMEN: Soft, nontender. EXTREMITIES: Without cyanosis or clubbing. There is no peripheral edema. LABORATORY DATA: EKG reveals sinus rhythm with rightward axis, nonspecific intraventricular conduction delay, poor progression of R waves across the anterior precordial leads. Laboratory studies on presentation, sodium is 136, potassium is 3.7, chloride is 97, bicarbonate is 30, BUN is 15, creatinine is 2.3. AST and ALT are elevated at 199 and 104, alkaline phosphatase is elevated at 764. Troponin is 0.2. BNP is 3768. Chest x-ray revealed no edema or infiltrate. Hemoglobin on presentation was 7.8, now this morning after transfusion is 9.7. IMPRESSION: A 56-year-old male with very complex history presents now after having an episode last evening of syncope. On initial presentation he was found to be anemic and hypotensive. He has responded to fluid and blood transfusion. PLAN: Continue to hold antihypertensive therapies including hydralazine, will reinstitute low dose carvedilol for cardioprotective effects as heart rate and blood pressure allows. Will hold diuretics and nitrites. Follow signs and symptoms for further GI bleeding as transfusion is administered. Would maintain patient in the hospital at least through the next dialysis run, assess heart rate and blood pressure response to event, keep patient on telemetry at all times as he would be at risk for ventricular arrhythmias with ejection fraction approximately 30%-35% range. Further recommendations as clinical course proceeds. The patient now oriented and feeling well today. No overt signs of further bleeding. MTDD
[2017-02-03] MEDS ORDERED: CARVEDILOL 3.125 MG TAB PO SCH (17:00)
--- NOTE | 2017-02-03 17:13 | Gastrointestinal Consultation ---
Gastrointestinal Consultation Date of Consultation: Feb 03, 2017 Attending Physician: Dr. Barros Consulting Physician: Dr. Edyta Chavez Reason for Consultation: Recent resection, GI bleed History of Present Illness Mr. Stovall is a patient is a 56 year old male with PMH significant for CAD s/p CABGX2, recent AL, ischemic chronic systolic CHF, T2DM, PAF on Plavix that was DC/ed on 02/01 (2 days ago) from [place]. He has ESRD on HD, is s/p bowel resection for incarcerated hernia on 01/11 at [place]. He was admitted here after the SB resection for melena, anemia, and he underwent EGD on 01/24/17 w/o cause of GI bleeding. He was discharged from here on 01/25 but returned, underwent card cath [facility] Regarding the GI bleeding, he has received a total of 9 units of RBCs since the small bowel surgery on 01/11. He tells me that he has had black BMs since the surgery, though most recently, they are a dark brown. A stool occult on 01/25 was positive. His most recent colonoscopy was "about 4 yrs ago." Today, at 3 AM, he had a syncopal episode. He had been in bed and although he doesn't have any recollection of the event, his is here with him and says that she was wakened when he fainted, his head thumping onto her chest. He must have set up in bed and then fainted from that position. He was initially w/o consciousness but she was able to arouse him quickly. His BP was 85/46 (checked by his ). It did not appear that he had any injuries. He was able to get up , dress himself and his drove him to the ED. On arrival, Hb was 7.4. He received 2 units of RBCs and f/u Hb was 9.7. He has been hemodynamically stable and has not had a BM. He denies any recent abdominal pain, nausea or vomiting. He has not been on an iron supplement. We were consulted a few minutes ago and came immediately to evaluate him. He was actively eating his supper when we arrived. He appears well. He was actually standing up, walking around for a few minutes as well. Past Medical/Surgical History Medical Problems: (1) Acute coronary syndrome Status: Acute (2) Acute lower GI bleeding Status: Acute (3) Anemia Status: Acute (4) Chest pressure Status: Acute (5) Diabetes mellitus Status: Acute (6) Dialysis-associated peritonitis Status: Acute (7) Flank pain Status: Acute (8) History of coronary artery disease Status: Acute (9) Hyperglycemia Status: Acute (10) Peritoneal dialysis catheter in place Status: Acute (11) SBO (small bowel obstruction) Status: Acute (12) STEMI (ST elevation myocardial infarction) Status: Acute (13) Substernal chest pain Status: Acute (14) Symptomatic anemia Status: Acute (15) Ventral hernia Status: Acute Past Medical History: 1. DM 2. CAD, chronic ischemic heart disease, S/P MIs, CABG 3. PAF, on Plavix 4. ESRD on dialysis Past Surgical History: 1. Small bowel resection 01/12/17 2. CABG 2005 X vessels, by Dr. Almonte. 3. Hernia repair 4. Cholecystectomy 5. Rotator cuff surgery 6. Dialysis cath placement x 2 surgeries 6. Card cath 01/26/16 7. EGD 01/25/17 Family History Hypertension Kidney disease Social History Smoking Status: Never Smoker Alcohol Use: none Drug Use: none Marital Status: Housing Status: lives with family Occupation Status: disabled Allergies Coded Allergies: Penicillins (Verified Allergy, Severe, HIVES, 01/24/17) BEE STING (Verified Allergy, Intermediate, SWELLING, 01/24/17) DOES NOT REQUIRE EPIPEN PER FAMILY Current Medications Home Meds and Scripts Medications Dose Route/Sig Max Daily Dose Days Date Category Dose Instructions Miralax (Polyethylene Glycol 3350) 1 Pow Pow 17 Gm PO DAILY PRN 02/03/17 Reported Plavix (Clopidogrel Bisulfate) 75 Mg Tab 75 Mg PO QAM 02/03/17 Reported Phoslo 667 Mg (Calcium Acetate) 667 Mg Cap 667 Mg PO TIDM 02/03/17 Reported Vitamin B Complex (B-Complex Vitamins) 1 Tab Tab 1 Cap PO QAM 02/03/17 Reported Prorenal Qd (Multiple Vitamins W/ Minerals) 1 Cap Cap 1 Cap PO QAM 01/11/17 Reported Crestor (Rosuvastatin Calcium) 20 Mg Tab 20 Mg PO DAILY 01/11/17 Reported Zofran (Ondansetron HCl) 4 Mg Tab 4 Mg PO Q6H PRN 01/11/17 Reported Chronulac (Lactulose) 10 Gm/15 Ml Syrp 1 Dose PO DIRECTED PRN 01/11/17 Reported Trazodone (Trazodone HCl) 50 Mg Tab 50 Mg PO HS PRN 01/11/17 Reported Requip (Ropinirole HCl) 1 Mg Tab 2 Mg PO QPM 01/11/17 Reported Proair Respiclick (Albuterol Sulfate) 108 Mcg/Act Aer 2 Puffs INH QAM 01/11/17 Reported Requip (Ropinirole Hydrochloride) 1 Mg Tab 1 Mg PO QAM 01/11/17 Reported Lasix (Furosemide) 20 Mg Tab 20 Mg PO QAM 01/11/17 Reported novoLOG INSULIN PUMP (Insulin Aspart) 1 Ea Inj 1 Ea N/A UD 01/11/17 Reported Apresoline (Hydralazine Hcl) 25 Mg Tab 25 Mg PO TID 12/02/14 Reported Percocet 5MG/325MG (Oxycodone/Acetaminophen) Tab 1 Tablet PO HS 11/07/14 Reported Aspirin Ec (Aspirin) 81 Mg Tab 81 Mg PO QPM 11/07/14 Reported Nitrostat (Nitroglycerin) 0.4 Mg Tab 0.4 Mg UT UD PRN 09/29/[address] ONE TABLET UNDER THE TONGUE EVERY 5 MINUTES FOR UP TO 3 DOSES IF NEEDED FOR CHEST PAIN. Advair Diskus 250/50 60 Dose (Fluticasone Prop/Salmeterol) 1 Ea Aerp 1 Puff INH Q12 09/29/14 Reported Levalbuterol HCl (Levalbuterol) 1.25 Mg/3 Ml Nebu 1 Vial NEB TID PRN 09/29/14 Reported Pantoprazole Sodium (Pantoprazole) 40 Mg Tab 40 Mg PO QAM 09/29/14 Reported Acyclovir 400 Mg Tab 400 Mg PO BID 09/29/14 Reported Montelukast Sodium (Montelukast Sod) 10 Mg Tab 10 Mg PO QPM 09/29/14 Reported Coreg (Carvedilol) 25 Mg Tab 25 Mg PO AMPM 09/29/14 Reported Sertraline HCl 50 Mg Tab 50 Mg PO QPM 09/29/14 Reported Glucagon Emergency Kit (Glucagon) 1 Mg Kit 1 Dose INJ UD PRN 06/10/14 Reported Ativan (Lorazepam) 1 Mg Tab 0.5-1 Mg PO BID PRN 08/24/12 Reported Imdur Ext Rel (Isosorbide Mononitrate) 120 Mg Ertab 120 Mg PO QAM 04/06/11 Reported Review of Systems Constitutional: + problem reported (syncopal episode), No fever, No chills, No sweats, No weight loss, No weakness Eyes: No eye pain, No redness ENT: No sore throat, No trouble swallowing, No pain on swallowing Respiratory: No cough, No wheezing, No shortness of breath, No dyspnea on exertion Cardiac: No chest pain, No edema, No palpitations Abdomen: + see HPI, + GI bleeding (black or dark brown BMs), No pain, No nausea , No vomiting, No diarrhea Neuro: No memory loss, No weakness, No numbness/tingling, No vertigo, No balance problems Psych: No depression symptoms, No anxiety, No insomnia Heme: No abnormal bleeding/bruising, No night sweats Endo: No excessive thirst, No excessive urination Skin: No rash, No itch, No new/changing skin lesions, No jaundice Physical Exam Date Time Temp Pulse Resp B/P (MAP) Pulse Ox O2 Delivery O2 Flow Rate FiO2 02/03/17 15:58 Room Air 02/03/17 15:31 37.1 67 17 105/68 (80) 97 Room Air 02/03/17 12:00 Room Air 02/03/17 11:06 37.0 67 20 106/61 95 02/03/17 10:31 36.8 68 20 110/61 96 02/03/17 09:30 37.0 69 22 119/63 02/03/17 09:03 36.8 69 20 116/69 99 02/03/17 08:42 36.8 73 18 111/57 99 02/03/17 08:16 36.7 69 20 102/55 96 02/03/17 07:27 74 18 97 Room Air 02/03/17 07:10 36.9 74 18 105/59 98 02/03/17 06:39 36.5 70 20 110/70 98 Room Air 02/03/17 06:14 36.5 80 18 114/64 98 02/03/17 06:11 36.5 73 18 114/61 02/03/17 06:09 36.5 67 18 105/60 98 02/03/17 06:06 105/60 02/03/17 06:01 94/56 02/03/17 06:00 36.5 61 18 96/50 99 02/03/17 05:58 96/50 02/03/17 05:55 100/56 02/03/17 05:52 36.5 73 18 111/62 98 02/03/17 05:50 111/62 02/03/17 05:46 102/56 02/03/17 05:42 71 18 98 02/03/17 05:31 107/59 02/03/17 05:27 72 18 99 02/03/17 05:16 110/59 02/03/17 05:12 72 18 98 02/03/17 05:01 101/54 02/03/17 04:57 71 21 99 02/03/17 04:52 68 16 98 02/03/17 04:46 103/55 02/03/17 04:41 75/33 02/03/17 04:39 77/29 02/03/17 04:37 57 16 99 02/03/17 04:22 64 16 99 02/03/17 04:20 98/51 02/03/17 04:07 74 12 02/03/17 04:01 109/58 02/03/17 03:52 69 16 02/03/17 03:39 70 02/03/17 03:37 70 15 02/03/17 03:29 36.9 66 20 86/45 100 Room Air 02/03/17 03:28 86/45 General Appearance: no apparent distress Eyes: normal inspection, EOMI Neck: supple, no adenopathy, thyroid normal Respiratory/Chest: chest non-tender, lungs clear, normal breath sounds, no accessory muscle use Cardiovascular: regular rate, rhythm, no JVD, no murmur Abdomen: normal bowel sounds, non tender, soft, no organomegaly Extremities: normal inspection, no pedal edema, normal capillary refill Neurologic/Psych: alert, normal mood/affect, oriented x 3 Skin: normal color, no jaundice, warm/dry, no rash Laboratory Results Last 24 Hours Test 02/03/17 03:42 02/03/17 04:00 02/03/17 07:08 02/03/17 11:33 Bedside Glucose 267 mg/dl 265 mg/dl White Blood Count 6.45 K/uL Red Blood Count 2.77 M/uL Hemoglobin 7.8 g/dL 9.7 g/dL Hematocrit 25.1 % 29.7 % Mean Corpuscular Volume 90.6 fL Mean Corpuscular Hemoglobin 28.2 pg Mean Corpuscular Hemoglobin Concent 31.1 g/dl Platelet Count 322 K/uL Mean Platelet Volume 11.0 fL Neutrophils (%) (Auto) 62.5 % Lymphocytes (%) (Auto) 19.2 % Monocytes (%) (Auto) 14.1 % Eosinophils (%) (Auto) 2.5 % Basophils (%) (Auto) 0.8 % Neutrophils # (Auto) 4.03 K/uL Lymphocytes # (Auto) 1.24 K/uL Monocytes # (Auto) 0.91 K/uL Eosinophils # (Auto) 0.16 K/uL Basophils # (Auto) 0.05 K/uL RDW Standard Deviation 48.2 fL RDW Coefficient of Variation 14.5 % Immature Granulocyte % (Auto) 0.9 % Immature Granulocyte # (Auto) 0.06 K/uL Red Blood Cell Morphology Unremarkable Prothrombin Time 10.1 SECONDS Prothromb Time International Ratio 0.9 Activated Partial Thromboplast Time 23.1 SECONDS Partial Thromboplastin Ratio 0.9 Sodium Level 136 mmol/L Potassium Level 3.7 mmol/L Chloride Level 97 mmol/L Carbon Dioxide Level 30 mmol/L Anion Gap 9.0 mmol/L Blood Urea Nitrogen 15 mg/dl Creatinine 2.30 mg/dl Est Creatinine Clear Calc Drug Dose 35.9 ml/min Estimated GFR () 35.7 Estimated GFR (Non- 30.8 BUN/Creatinine Ratio 6.7 Random Glucose 245 mg/dl Calcium Level 7.8 mg/dl Total Bilirubin 0.3 mg/dl Direct Bilirubin 0.2 mg/dl Aspartate Amino Transf (AST/SGOT) 199 U/L Alanine Aminotransferase (ALT/SGPT) 104 U/L Alkaline Phosphatase 764 U/L Total Creatine Kinase 50 U/L Creatine Kinase MB 1.4 ng/ml Creatine Kinase MB Ratio 2.8 Troponin I 0.231 ng/ml Pro-B-Type Natriuretic Peptide 3768 pg/ml Total Protein 5.6 gm/dl Albumin 2.7 gm/dl Test 02/03/17 11:55 02/03/17 14:04 Bedside Glucose 138 mg/dl 114 mg/dl Impression Patient is a 56 year old male with dark stools, transfusion anemia since small bowel resection on 01/11/17. He likely has a small bowel bleed, possible at the anastomosis, though would be unusual to be bleeding this long after surgery. He was on Plavix until 2 days ago which can certainly potentiate any possible bleeding sites. He appears very well and is hemodynamically stable so if GI bleeding is present it is likely a very slow, but possibly steady bleed. Plan 1. Stool occult. 2. Will order a red tagged bleeding scan. 3. Appreciate primary services blood and fluids resuscitation. 4. Appreciate that he has ongoing cardiac monitoring. 5. Because very recent EGD (9 days ago) with similar symptoms then, and because fairly recent small bowel surgery, would avoid repeating EGD if possible. 6. If he begins with brisk GI bleeding, the sight is likely distal to the area seen on an EGD and he would then benefit from a small bowel enteroscopy but would transfer to [place] for that if needed. I saw and evaluated the patient. He presented with worsening anemia, syncope and "melena". given the recent small bowel anastomosis I would suggest a referral to a tertiary center to determine if a balloon enteroscopy should be considered. PE: NAD No abdominal tenderness Impression: patient with suspected melena related to his prior sugical anastomosis. Recomendation: consider referral to a teritiary center stool for hemocult consider a GI bleeding scan
[2017-02-03] MEDS: LORAZEPAM 1 MG TAB PO PRN (22:29)
[2017-02-04] VITALS (24 sets, daily range): BP systolic 119–147; BP diastolic 63–81; PULSE 63–77; TEMP 36.8–37.3; O2SAT 95–99
[2017-02-04 00:06] LABS: HEMATOCRIT 29.3 % (42-52)
[2017-02-04 05:57] LABS: BASO % 0.4 %; BASO ABS # 0.03 K/uL (0-0.2); COMPLETE YES; EOS % 2.6 %; HEMATOCRIT 30.5 % (42-52); IG% 0.8 %; LYMPH % 15.3 %; LYMPH ABS # 1.17 K/uL (1.2-3.4); MEAN CELL VOLUME 88.9 fL (80-100); MEAN CORPUSCULAR HEMOGLOBIN 28.9 pg (25-34); MEAN CORPUSCULAR HGB CONC 32.5 g/dl (32-36); MONO % 13.1 %; NEUT % 67.8 %; PLATELET COUNT 328 K/uL (130-400); RED BLOOD COUNT 3.43 M/uL (4.7-6.1); WHITE BLOOD COUNT 7.66 K/uL (4.8-10.8)
[2017-02-04] MEDS ORDERED: EPOETIN ALFA 4000 UNITS/ML VIAL IV. SCH (06:00)
[2017-02-04 06:15] LABS: PARTIAL THROMBOPLASTIN RATIO 0.9; PROTHROMBIN TIME (PATIENT) 10.4 SECONDS (9.0-12.0)
[2017-02-04 06:21] LABS: BUN/CREATININE RATIO 7.8 (10-20); CALCIUM 8.2 mg/dl (8.5-10.1); CREATININE 2.4 mg/dl (0.60-1.40); MAGNESIUM 1.9 mg/dl (1.8-2.4)
[2017-02-04] MEDS: NovoLOG INSULIN PUMP SCH ×4 (06:52→20:39)
[2017-02-04] MEDS: SODIUM CHLORIDE 0.9% 1000ML 1,000 ML IV SCH ×2 (07:51→20:00)
[2017-02-04] MEDS: FLUTICASONE/SALMETEROL 250/50 (ADVAIR) 14 PUFF/1 INHALER INH SCH ×2 (07:51→20:38)
[2017-02-04] MEDS: ACYCLOVIR 400 MG TAB PO SCH ×2 (07:52→20:38)
--- NOTE | 2017-02-04 09:02 | CARDIOLOGY CONSULTATION ---
DATE OF CONSULTATION: 02/04/2017 The patient seen and examined. Chart, medications, telemetry reviewed. SUBJECTIVE: Feels well this morning. Denies any abdominal pain or discomfort. Notes no bowel movements since last evening. Notes no chest pain or discomfort. Notes no dizziness or lightheadedness. No further syncope or near syncopal spells. OBJECTIVE: VITAL SIGNS: Heart rate is 69, blood pressure is 137/81, O2 saturation is 95% on room air. Telemetry reveals one episode of accelerated ventricular rhythm, asymptomatic. NECK: Thick. There is no distinct jugular venous distention. LUNGS: Reveal diminished breath sounds but no rhonchi, rale or wheeze. CARDIOVASCULAR: Regular. There is no S3 gallop. There is a grade 1-2/6 systolic murmur. ABDOMEN: Soft, mildly distended. EXTREMITIES: Reveal 1-2+ bilateral edema. LABORATORY STUDIES: Sodium is 138, potassium is 4.0, chloride is 101, bicarbonate is 28, BUN is 19, creatinine is 2.4, AST is 311, ALT is 224, alkaline phosphatase is 966, albumin level is 2.8. IMPRESSION: A 56-year-old male with complex history of recent gastrointestinal bleeding, ill-defined source, possible site is probable recent surgical anastomosis, presented with syncope and profound hypotension. Medications have been reduced. We will continue plans at low dose carvedilol. Continue to hold hydralazine and rosuvastatin, and any other unnecessary medications for time being. Would keep the patient on telemetry given recent ventricular arrhythmias that were not pathologic and symptoms of syncope on presentation. We will continue to follow the patient in the hospital, maintain hospitalization, assess for further bleeding and response to dialysis as scheduled today. [facility]
[2017-02-04] MEDS: ROPINIROLE HCL 1 MG TAB PO SCH ×2 (09:27→20:38)
[2017-02-04] MEDS: LORAZEPAM 1 MG TAB PO PRN (09:31)
--- NOTE | 2017-02-04 10:37 | Nephrology Progress Note ---
Nephrology Progress Note Date of Service Feb 04, 2017. Chief Complaint To provide inpatient HD for this patient w/ ESRD and assist w/ his medical management Subjective Mr. Caro was seen & examined in preparation for HD this morning. He denies abdominal pain or melena. He is scheduled for a tagged RBC scan later today. Review of Systems Constitutional: No fever Cardiovascular: No chest pain Respiratory: No dyspnea at rest Abdomen: No pain, No nausea, No vomiting Extremities: + leg edema A complete review of systems was performed. Pertinent positives are noted above. All other systems are negative. Vital Signs Last 8 Hrs Date Time Temp Pulse Resp B/P (MAP) Pulse Ox O2 Delivery O2 Flow Rate FiO2 02/04/17 09:49 37.0 70 127/63 (84) 02/04/17 08:06 36.9 69 18 137/81 (99) 95 Room Air 02/04/17 04:00 Room Air 02/04/17 03:56 37.2 68 18 131/70 (90) 96 Room Air Last Recorded Weight Weight (Kilograms): 88.600 Physical Exam General Appearance: no apparent distress Head: atraumatic Eyes: PERRL Neck: no adenopathy Respiratory/Chest: lungs clear Cardiovascular: regular rate, rhythm Abdomen/GI: normal bowel sounds, non tender, soft Extremities/Musculoskelatal: + swelling (1+ pretibial edema) Neurologic/Psych: alert, oriented x 3 Family History Hypertension Kidney disease Negative for CKD / ESRD Social History Smoking Status: Former smoker Smokeless Tobacco Use: No Drug Use: none Marital Status: Housing Status: lives with family Occupation: disabled . Medically disabled. Former smoker (quit 2000). Laboratory Results Past 24 Hours 02/03/17 11:33 02/03/17 17:50 02/04/17 00:01 02/04/17 05:49 Red Blood Count 3.43, Mean Corpuscular Volume 88.9, Mean Corpuscular Hemoglobin 28.9, Mean Corpuscular Hemoglobin Concent 32.5, Mean Platelet Volume 11.0, Neutrophils (%) (Auto) 67.8, Lymphocytes (%) (Auto) 15.3, Monocytes (%) (Auto) 13.1, Eosinophils (%) (Auto) 2.6, Basophils (%) (Auto) 0.4, Neutrophils # (Auto ) 5.20, Lymphocytes # (Auto) 1.17, Monocytes # (Auto) 1.00, Eosinophils # (Auto ) 0.20, Basophils # (Auto) 0.03 02/04/17 05:49 Test 02/03/17 11:55 02/03/17 14:04 02/03/17 17:46 02/03/17 20:00 Bedside Glucose 138 mg/dl (70-99) 114 mg/dl (70-99) 116 mg/dl (70-99) Stool Occult Blood POSITIVE (NEGATIVE) Test 02/03/17 20:13 02/03/17 23:59 02/04/17 05:49 02/04/17 06:34 Bedside Glucose 82 mg/dl (70-99) 140 mg/dl (70-99) 137 mg/dl (70-99) White Blood Count 7.66 K/uL (4.8-10.8) Red Blood Count 3.43 M/uL (4.7-6.1) Hemoglobin 9.9 g/dL (14.0-18.0) Hematocrit 30.5 % (42-52) Mean Corpuscular Volume 88.9 fL (80-100) Mean Corpuscular Hemoglobin 28.9 pg (25-34) Mean Corpuscular Hemoglobin Concent 32.5 g/dl (32-36) Platelet Count 328 K/uL (130-400) Mean Platelet Volume 11.0 fL (7.4-10.4) Neutrophils (%) (Auto) 67.8 % Lymphocytes (%) (Auto) 15.3 % Monocytes (%) (Auto) 13.1 % Eosinophils (%) (Auto) 2.6 % Basophils (%) (Auto) 0.4 % Neutrophils # (Auto) 5.20 K/uL (1.4-6.5) Lymphocytes # (Auto) 1.17 K/uL (1.2-3.4) Monocytes # (Auto) 1.00 K/uL (0.11-0.59) Eosinophils # (Auto) 0.20 K/uL (0-0.5) Basophils # (Auto) 0.03 K/uL (0-0.2) RDW Standard Deviation 49.1 fL (36.4-46.3) RDW Coefficient of Variation 15.1 % (11.5-14.5) Immature Granulocyte % (Auto) 0.8 % Immature Granulocyte # (Auto) 0.06 K/uL (0.00-0.02) Prothrombin Time 10.4 SECONDS (9.0-12.0) Prothromb Time International Ratio 1.0 (0.9-1.1) Activated Partial Thromboplast Time 23.8 SECONDS (21.0-31.0) Partial Thromboplastin Ratio 0.9 Anion Gap 9.0 mmol/L (3-11) Est Creatinine Clear Calc Drug Dose 33.8 ml/min Estimated GFR () 33.9 Estimated GFR (Non- 29.3 BUN/Creatinine Ratio 7.8 (10-20) Calcium Level 8.2 mg/dl (8.5-10.1) Magnesium Level 1.9 mg/dl (1.8-2.4) Total Bilirubin 0.8 mg/dl (0.2-1) Direct Bilirubin 0.3 mg/dl (0-0.2) Aspartate Amino Transf (AST/SGOT) 311 U/L (15-37) Alanine Aminotransferase (ALT/SGPT) 224 U/L (12-78) Alkaline Phosphatase 966 U/L (45-117) Total Protein 5.8 gm/dl (6.4-8.2) Albumin 2.8 gm/dl (3.4-5.0) Allergies Coded Allergies: Penicillins (Verified Allergy, Severe, HIVES, 01/24/17) BEE STING (Verified Allergy, Intermediate, SWELLING, 01/24/17) DOES NOT REQUIRE EPIPEN PER FAMILY Medications Current Inpatient Medications Medications (Trade) Dose Ordered Sig/Shasha Route Start Time Stop Time Status Last Admin Dose Admin Sodium Chloride 1,000 ml @ 80 mls/hr [id number] IV 02/03/17 06:30 03/05/17 06:29 02/04/17 07:51 80 MLS/HR Acyclovir (Zovirax Tab) 400 mg BID PO 02/03/17 09:00 03/05/17 08:59 02/04/17 07:52 400 MG Salmeterol Xinafoate/ Fluticasone (Advair Diskus 250/50 Inh) 1 puff Q12 INH 02/03/17 09:00 03/05/17 08:59 02/04/17 07:51 1 PUFF Levalbuterol (Xopenex 1.25MG/ 3ML Neb) 1.25 mg QID PRN INH 02/03/17 06:00 03/05/17 05:59 02/03/17 07:26 1.25 MG Lorazepam (Ativan Tab) 0.5 mg QID PRN PO 02/03/17 06:00 03/05/17 05:59 02/04/17 09:31 0.5 MG Ondansetron HCl (Zofran Inj) 4 mg Q6H PRN IV 02/03/17 06:00 03/05/17 05:59 Glucose (Glucose 40% Gel) UD PRN PO 02/03/17 06:00 03/05/17 05:59 Glucose (Glucose Chew Tab) 1 tabs UD PRN PO 02/03/17 06:00 03/05/17 05:59 Dextrose (Dextrose 50% 50ML Syringe) 50 ml UD PRN IV 02/03/17 06:00 03/05/17 05:59 Glucagon (Glucagon Inj) 1 mg UD PRN SQ 02/03/17 06:00 03/05/17 05:59 Pantoprazole Sodium 40 mg/ Syringe 10 ml @ 5 mls/min DAILY@11 IV 02/03/17 11:00 03/05/17 10:59 02/03/17 11:30 5 MLS/MIN Insulin Aspart (novoLOG INSULIN PUMP) 1 ea ACHS N/A 02/03/17 07:00 03/05/17 06:59 02/04/17 06:52 1 EA Insulin Aspart (novoLOG ASPART) SLIDING SCALE PRN PRN SC 02/03/17 06:45 03/05/17 06:44 Epoetin Ha (Procrit Inj) 8,000 units 0600 IV. 02/04/17 06:00 02/04/17 16:00 Ropinirole HCl (Requip Tab) 1 mg QAM PO 02/03/17 14:00 03/05/17 13:59 02/04/17 09:27 1 MG Ropinirole HCl (Requip Tab) 2 mg PM PO 02/03/17 21:00 03/05/17 20:59 02/03/17 21:27 2 MG Carvedilol (Coreg Tab) 6.25 mg BID17 PO 02/04/17 09:00 03/05/17 16:59 Impression (1) GI bleed (2) ESRD on hemodialysis (3) Anemia (4) Coronary artery disease (5) Chronic obstructive lung disease (6) Diabetes mellitus (7) Obstructive sleep apnea syndrome Mr. Caro was admitted to [facility] following a witnessed syncopal event. He has ongoing GI bleeding and presented w/ anemia. Recommendations END STAGE RENAL DISEASE: -- Heparin free HD today. Orders placed in EMR and HD RN notified ANEMIA: -- Recommend blood transfusion to maintain Hgb > 10 -- Gastroenterology recommendations reviewed. Patient is scheduled for a tagged RBC scan today -- Monitor serial H&H HYPERTENSION: -- Blood pressure is currently acceptable without medications. Will monitor. IDDM: -- Sliding scale insulin
[2017-02-04] MEDS: PANTOprazole INJ 40 MG in SYRINGE 0 ML IV SCH (11:00)
[2017-02-04 14:37] LABS: HEMATOCRIT 29.2 % (42-52)
[2017-02-04] MEDS: CARVEDILOL 3.125 MG TAB PO SCH ×2 (15:22→18:36)
--- NOTE | 2017-02-04 16:20 | DIAGNOSTIC IMAGING REPORT ---
GI BLEEDING SCAN CLINICAL HISTORY: anemia, melena, recent small bowel resection. TECHNIQUE: Examination is performed following the administration of 15.3 mCi technetium 9M ultra tagged. COMPARISON STUDY: None FINDINGS: Normal GI bleed scan. No evidence for active GI bleeding. IMPRESSION: Normal GI bleed scan Electronically signed by: Jean Marie Rodgers M.D. 02/04/2017 4:19 PM Dictated Date/Time: 02/04/2017 4:18 PM
--- NOTE | 2017-02-04 16:49 | Progress Note ---
Subjective Date of Service: Feb 04, 2017. Subjective Pt evaluation today including: conversation w/ patient, conversation w/ family , physical exam, chart review, lab review, review of studies, conversation w/ center consultant, review of inpatient medication list Resting in bed comfortably Denies any further blood loss No abd pain No issues overnight Problem List Medical Problems: (1) Acute coronary syndrome Status: Acute (2) Acute lower GI bleeding Status: Acute (3) Anemia Status: Acute (4) Chest pressure Status: Acute (5) Diabetes mellitus Status: Acute (6) Dialysis-associated peritonitis Status: Acute (7) Flank pain Status: Acute (8) History of coronary artery disease Status: Acute (9) Hyperglycemia Status: Acute (10) Peritoneal dialysis catheter in place Status: Acute (11) SBO (small bowel obstruction) Status: Acute (12) STEMI (ST elevation myocardial infarction) Status: Acute (13) Substernal chest pain Status: Acute (14) Symptomatic anemia Status: Acute (15) Ventral hernia Status: Acute Review of Systems Constitutional: No fever, No chills, No sweats, No weight loss, No weakness ENT: No hearing loss, No unusual epistaxis, No nasal symptoms, No sore throat Respiratory: No cough, No sputum, No wheezing, No shortness of breath, No dyspnea on exertion Cardiac: No chest pain, No orthopnea, No PND, No edema Abdomen: No pain, No nausea, No vomiting, No diarrhea, No constipation, No GI bleeding Musculoskeletal: No joint pain, No muscle pain, No swelling Male : No dysuria, No urinary frequency, No incontinence Neurologic: No memory loss, No paralysis, No weakness, No numbness/tingling Psychiatric: No depression symptoms, No anhedonism, No anxiety, No insomnia Objective Vital Signs Date Time Temp Pulse Resp B/P (MAP) Pulse Ox O2 Delivery O2 Flow Rate FiO2 02/04/17 14:49 36.8 66 133/73 (93) 02/04/17 14:00 68 136/72 02/04/17 13:45 68 140/69 02/04/17 13:30 68 126/75 02/04/17 13:15 68 143/74 02/04/17 13:00 67 136/69 02/04/17 12:45 65 137/67 02/04/17 12:30 65 131/72 02/04/17 12:15 65 147/74 6/17/17 12:00 63 119/67 02/04/17 11:45 64 131/72 02/04/17 11:30 65 134/79 02/04/17 11:20 37.0 67 24 133/70 (91) 99 Nasal Cannula 2.0 02/04/17 11:15 67 128/69 02/04/17 11:00 68 134/74 02/04/17 10:45 67 133/78 02/04/17 10:30 65 133/76 02/04/17 10:15 69 137/69 02/04/17 10:05 66 124/68 02/04/17 09:49 37.0 70 127/63 (84) 02/04/17 08:06 36.9 69 18 137/81 (99) 95 Room Air 02/04/17 08:00 Room Air 02/04/17 04:00 Room Air 02/04/17 03:56 37.2 68 18 131/70 (90) 96 Room Air 02/04/17 00:01 Room Air 02/03/17 23:21 36.8 70 19 125/73 (90) 95 Room Air 02/03/17 20:04 37.2 62 16 113/63 (80) 98 Room Air 02/03/17 20:00 Room Air Physical Exam General Appearance: WD/WN, no apparent distress Eyes: normal inspection, PERRL, EOMI, sclerae normal Neck: supple, no adenopathy, thyroid normal, no JVD Respiratory/Chest: chest non-tender, lungs clear, normal breath sounds, no respiratory distress Cardiovascular: regular rate, rhythm, no edema, no gallop, no JVD Abdomen: normal bowel sounds, non tender, soft Extremities: normal range of motion, non-tender, normal inspection, no pedal edema Neurologic/Psychiatric: alert, normal mood/affect, oriented x 3 Laboratory Results Last 24 Hours Test 02/03/17 17:46 02/03/17 17:50 02/03/17 20:00 02/03/17 20:13 Bedside Glucose 116 mg/dl 82 mg/dl Hemoglobin 9.6 g/dL Hematocrit 30.0 % Stool Occult Blood POSITIVE Test 02/03/17 23:59 02/04/17 00:01 02/04/17 05:49 02/04/17 06:34 Bedside Glucose 140 mg/dl 137 mg/dl Hemoglobin 9.2 g/dL 9.9 g/dL Hematocrit 29.3 % 30.5 % White Blood Count 7.66 K/uL Red Blood Count 3.43 M/uL Mean Corpuscular Volume 88.9 fL Mean Corpuscular Hemoglobin 28.9 pg Mean Corpuscular Hemoglobin Concent 32.5 g/dl Platelet Count 328 K/uL Mean Platelet Volume 11.0 fL Neutrophils (%) (Auto) 67.8 % Lymphocytes (%) (Auto) 15.3 % Monocytes (%) (Auto) 13.1 % Eosinophils (%) (Auto) 2.6 % Basophils (%) (Auto) 0.4 % Neutrophils # (Auto) 5.20 K/uL Lymphocytes # (Auto) 1.17 K/uL Monocytes # (Auto) 1.00 K/uL Eosinophils # (Auto) 0.20 K/uL Basophils # (Auto) 0.03 K/uL RDW Standard Deviation 49.1 fL RDW Coefficient of Variation 15.1 % Immature Granulocyte % (Auto) 0.8 % Immature Granulocyte # (Auto) 0.06 K/uL Prothrombin Time 10.4 SECONDS Prothromb Time International Ratio 1.0 Activated Partial Thromboplast Time 23.8 SECONDS Partial Thromboplastin Ratio 0.9 Sodium Level 138 mmol/L Potassium Level 4.0 mmol/L Chloride Level 101 mmol/L Carbon Dioxide Level 28 mmol/L Anion Gap 9.0 mmol/L Blood Urea Nitrogen 19 mg/dl Creatinine 2.40 mg/dl Est Creatinine Clear Calc Drug Dose 33.8 ml/min Estimated GFR () 33.9 Estimated GFR (Non- 29.3 BUN/Creatinine Ratio 7.8 Random Glucose 145 mg/dl Calcium Level 8.2 mg/dl Magnesium Level 1.9 mg/dl Total Bilirubin 0.8 mg/dl Direct Bilirubin 0.3 mg/dl Aspartate Amino Transf (AST/SGOT) 311 U/L Alanine Aminotransferase (ALT/SGPT) 224 U/L Alkaline Phosphatase 966 U/L Total Protein 5.8 gm/dl Albumin 2.8 gm/dl Test 02/04/17 11:15 02/04/17 14:23 Bedside Glucose 121 mg/dl Hemoglobin 9.8 g/dL Hematocrit 29.2 % Assessment and Plan Symptomatic anemia secondary to GI bleed likely from sire of betina-- Improved after 2 units PRBCs tranfusion on 02/03 Stable with hg in 9's Follow H/H If worsening bleeding will need to transfer to [facility] center per GI Cont protonix CAD/hypertension/CABG/intermittent atrial fibrillation/history of CO--continue aspirin 81 mg by mouth every a.m.. Started on coreg 25 mg PO BID Cont to hold lasix and statin Cardiology consulted ESRD on HD--consult his patient admitting clerk Dr. Azul. Normal dialysis days are Monday, and Monday. Stable, tolerating well Diabetes mellitus--he will continue his NovoLog insulin pump, and reactive Accu- Cheks before meals and at bedtime and will use his own coverage scale. COPD--continue Advair discus and have available Xopenex/Atrovent nebulizer every 2 hours when necessary. RLS--for now hold ropinirole. Hypercholesterolemia--for now hold Crestor. Depression--hold sertraline 50 mg by mouth every afternoon. Continue acyclovir 400 mg by mouth twice a day.
[2017-02-04 18:03] LABS: HEMATOCRIT 31.7 % (42-52)
[2017-02-05 00:01] LABS: HEMATOCRIT 30.9 % (42-52)
[2017-02-05 03:43] VITALS: BP 134/77; PULSE 71; TEMP 37; O2SAT 99
[2017-02-05] MEDS: LORAZEPAM 1 MG TAB PO PRN (05:13)
[2017-02-05 07:29] VITALS: BP 132/75; PULSE 70; TEMP 36.7; O2SAT 97
[2017-02-05] MEDS: ACYCLOVIR 400 MG TAB PO SCH (07:48)
[2017-02-05] MEDS: FLUTICASONE/SALMETEROL 250/50 (ADVAIR) 14 PUFF/1 INHALER INH SCH (07:49)
[2017-02-05] MEDS: CARVEDILOL 3.125 MG TAB PO SCH (07:49)
[2017-02-05] MEDS: ROPINIROLE HCL 1 MG TAB PO SCH (07:49)
[2017-02-05] MEDS: NovoLOG INSULIN PUMP SCH (07:50)
[2017-02-05 07:54] LABS: BASO % 0.8 %; BASO ABS # 0.07 K/uL (0-0.2); COMPLETE YES; EOS % 2.2 %; HEMATOCRIT 32.6 % (42-52); IG% 0.8 %; LYMPH % 16.9 %; LYMPH ABS # 1.44 K/uL (1.2-3.4); MEAN CELL VOLUME 90.1 fL (80-100); MEAN CORPUSCULAR HEMOGLOBIN 28.2 pg (25-34); MEAN CORPUSCULAR HGB CONC 31.3 g/dl (32-36); MONO % 10.9 %; NEUT % 68.4 %; PLATELET COUNT 320 K/uL (130-400); RED BLOOD COUNT 3.62 M/uL (4.7-6.1); WHITE BLOOD COUNT 8.53 K/uL (4.8-10.8)
[2017-02-05 08:08] LABS: PARTIAL THROMBOPLASTIN RATIO 0.9; PROTHROMBIN TIME (PATIENT) 10.3 SECONDS (9.0-12.0)
[2017-02-05 08:31] LABS: BUN/CREATININE RATIO 6.5 (10-20); CREATININE 1.8 mg/dl (0.60-1.40); POTASSIUM 3.7 mmol/L (3.5-5.1)
[2017-02-05 08:35] LABS: CALCIUM 8.4 mg/dl (8.5-10.1)
--- NOTE | 2017-02-05 10:19 | Nephrology Progress Note ---
Nephrology Progress Note Date of Service Feb 05, 2017. Chief Complaint To provide inpatient HD for this patient w/ ESRD and assist w/ his medical management Subjective Mr. Caro was seen & examined in his hospital room this morning. He denies ongoing GI blood loss. He has had no further melena. He denies dyspnea or angina. He was dialyzed yesterday heparin free for 2.1 L UF. He was hemodynamically stable throughout the treatment. There were no complications Review of Systems Constitutional: No fever Cardiovascular: No chest pain Respiratory: No dyspnea at rest Abdomen: No pain, No nausea, No vomiting, No melena Extremities: + leg edema A complete review of systems was performed. Pertinent positives are noted above. All other systems are negative. Vital Signs Last 8 Hrs Date Time Temp Pulse Resp B/P (MAP) Pulse Ox O2 Delivery O2 Flow Rate FiO2 02/05/17 08:00 Room Air 02/05/17 07:29 36.7 70 18 132/75 (94) 97 Room Air 02/05/17 04:30 Room Air 02/05/17 03:43 37.0 71 18 134/77 (96) 99 Nasal Cannula 2.0 Last Recorded Weight Weight (Kilograms): 85.200 Physical Exam General Appearance: no apparent distress Head: normocephalic, atraumatic Eyes: PERRL, EOMI Neck: no adenopathy Respiratory/Chest: lungs clear, no respiratory distress Cardiovascular: regular rate, rhythm Abdomen/GI: normal bowel sounds, non tender, soft Extremities/Musculoskelatal: no calf tenderness, + pertinent finding (trace ankle edema) Neurologic/Psych: alert, oriented x 3 Family History Hypertension Kidney disease Negative for CKD / ESRD Social History Smoking Status: Former smoker Smokeless Tobacco Use: No Drug Use: none Marital Status: Housing Status: lives with family Occupation: disabled . Medically disabled. Former smoker (quit 2000). Laboratory Results Past 24 Hours 02/04/17 14:23 02/04/17 17:55 02/04/17 23:54 02/05/17 07:34 Red Blood Count 3.62, Mean Corpuscular Volume 90.1, Mean Corpuscular Hemoglobin 28.2, Mean Corpuscular Hemoglobin Concent 31.3, Mean Platelet Volume 12.0, Neutrophils (%) (Auto) 68.4, Lymphocytes (%) (Auto) 16.9, Monocytes (%) (Auto) 10.9, Eosinophils (%) (Auto) 2.2, Basophils (%) (Auto) 0.8, Neutrophils # (Auto ) 5.83, Lymphocytes # (Auto) 1.44, Monocytes # (Auto) 0.93, Eosinophils # (Auto ) 0.19, Basophils # (Auto) 0.07 02/05/17 07:34 Test 02/04/17 11:15 02/04/17 16:37 02/04/17 16:39 02/04/17 17:05 Bedside Glucose 121 mg/dl (70-99) 59 mg/dl (70-99) 69 mg/dl (70-99) 85 mg/dl (70-99) Test 02/04/17 20:26 02/05/17 06:39 02/05/17 07:34 Bedside Glucose 287 mg/dl (70-99) 138 mg/dl (70-99) White Blood Count 8.53 K/uL (4.8-10.8) Red Blood Count 3.62 M/uL (4.7-6.1) Hemoglobin 10.2 g/dL (14.0-18.0) Hematocrit 32.6 % (42-52) Mean Corpuscular Volume 90.1 fL (80-100) Mean Corpuscular Hemoglobin 28.2 pg (25-34) Mean Corpuscular Hemoglobin Concent 31.3 g/dl (32-36) Platelet Count 320 K/uL (130-400) Mean Platelet Volume 12.0 fL (7.4-10.4) Neutrophils (%) (Auto) 68.4 % Lymphocytes (%) (Auto) 16.9 % Monocytes (%) (Auto) 10.9 % Eosinophils (%) (Auto) 2.2 % Basophils (%) (Auto) 0.8 % Neutrophils # (Auto) 5.83 K/uL (1.4-6.5) Lymphocytes # (Auto) 1.44 K/uL (1.2-3.4) Monocytes # (Auto) 0.93 K/uL (0.11-0.59) Eosinophils # (Auto) 0.19 K/uL (0-0.5) Basophils # (Auto) 0.07 K/uL (0-0.2) RDW Standard Deviation 49.3 fL (36.4-46.3) RDW Coefficient of Variation 15.1 % (11.5-14.5) Immature Granulocyte % (Auto) 0.8 % Immature Granulocyte # (Auto) 0.07 K/uL (0.00-0.02) Nucleated RBC Absolute Count (auto) 0.02 K/uL (0-0) Nucleated Red Blood Cells % 0.2 % Prothrombin Time 10.3 SECONDS (9.0-12.0) Prothromb Time International Ratio 1.0 (0.9-1.1) Activated Partial Thromboplast Time 24.0 SECONDS (21.0-31.0) Partial Thromboplastin Ratio 0.9 Anion Gap 8.0 mmol/L (3-11) Est Creatinine Clear Calc Drug Dose 45.7 ml/min Estimated GFR () 48.0 Estimated GFR (Non- 41.4 BUN/Creatinine Ratio 6.5 (10-20) Calcium Level 8.4 mg/dl (8.5-10.1) Magnesium Level 2.0 mg/dl (1.8-2.4) Total Bilirubin 0.5 mg/dl (0.2-1) Direct Bilirubin 0.2 mg/dl (0-0.2) Aspartate Amino Transf (AST/SGOT) 150 U/L (15-37) Alanine Aminotransferase (ALT/SGPT) 192 U/L (12-78) Alkaline Phosphatase 997 U/L (45-117) Total Protein 6.1 gm/dl (6.4-8.2) Albumin 2.7 gm/dl (3.4-5.0) Allergies Coded Allergies: Penicillins (Verified Allergy, Severe, HIVES, 01/24/17) BEE STING (Verified Allergy, Intermediate, SWELLING, 01/24/17) DOES NOT REQUIRE EPIPEN PER FAMILY Medications Current Inpatient Medications Medications (Trade) Dose Ordered Sig/Shasha Route Start Time Stop Time Status Last Admin Dose Admin Sodium Chloride 1,000 ml @ 80 mls/hr [id number] IV 02/03/17 06:30 03/05/17 06:29 02/04/17 07:51 80 MLS/HR Acyclovir (Zovirax Tab) 400 mg BID PO 02/03/17 09:00 03/05/17 08:59 02/05/17 07:48 400 MG Salmeterol Xinafoate/ Fluticasone (Advair Diskus 250/50 Inh) 1 puff Q12 INH 02/03/17 09:00 03/05/17 08:59 02/05/17 07:49 1 PUFF Levalbuterol (Xopenex 1.25MG/ 3ML Neb) 1.25 mg QID PRN INH 02/03/17 06:00 03/05/17 05:59 02/03/17 07:26 1.25 MG Lorazepam (Ativan Tab) 0.5 mg QID PRN PO 02/03/17 06:00 03/05/17 05:59 02/05/17 05:13 0.5 MG Ondansetron HCl (Zofran Inj) 4 mg Q6H PRN IV 02/03/17 06:00 03/05/17 05:59 Glucose (Glucose 40% Gel) UD PRN PO 02/03/17 06:00 03/05/17 05:59 02/04/17 16:43 15 GM Glucose (Glucose Chew Tab) 1 tabs UD PRN PO 02/03/17 06:00 03/05/17 05:59 Dextrose (Dextrose 50% 50ML Syringe) 50 ml UD PRN IV 02/03/17 06:00 03/05/17 05:59 Glucagon (Glucagon Inj) 1 mg UD PRN SQ 02/03/17 06:00 03/05/17 05:59 Pantoprazole Sodium 40 mg/ Syringe 10 ml @ 5 mls/min DAILY@11 IV 02/03/17 11:00 03/05/17 10:59 02/03/17 11:30 5 MLS/MIN Insulin Aspart (novoLOG INSULIN PUMP) 1 ea ACHS N/A 02/03/17 07:00 03/05/17 06:59 02/05/17 07:50 1 EA Insulin Aspart (novoLOG ASPART) SLIDING SCALE PRN PRN SC 02/03/17 06:45 03/05/17 06:44 Ropinirole HCl (Requip Tab) 1 mg QAM PO 02/03/17 14:00 03/05/17 13:59 02/05/17 07:49 1 MG Ropinirole HCl (Requip Tab) 2 mg PM PO 02/03/17 21:00 7/16/17 20:59 02/04/17 20:38 2 MG Carvedilol (Coreg Tab) 6.25 mg BID17 PO 02/04/17 09:00 03/05/17 16:59 02/05/17 07:49 6.25 MG Lidocaine/ Prilocaine (Emla 2.5% Crm) 1 ea MoWeFr EXT 02/06/17 00:00 03/08/17 00:00 Impression (1) GI bleed (2) ESRD on hemodialysis (3) Anemia (4) Coronary artery disease (5) Chronic obstructive lung disease (6) Diabetes mellitus (7) Obstructive sleep apnea syndrome Mr. Caro was admitted to [facility] following a witnessed syncopal event. He has ongoing GI bleeding and presented w/ anemia. Recommendations END STAGE RENAL DISEASE: -- Volume status and electrolyte balance are currently acceptable. No acute indication for HD today. Will plan next HD for Monday. -- If discharge is anticipated have patient call [facility] ([phone]) to resume outpatient TTS schedule ANEMIA: -- Tagged RBC scan report reviewed this am. No active / brisk bleeding identified -- Monitor serial H&H HYPERTENSION: -- Blood pressure is currently acceptable without medications. Will monitor. IDDM: -- Sliding scale insulin
[2017-02-05] MEDS ORDERED: CRG3125 PO ×2 (10:41)
--- NOTE | 2017-02-05 10:46 | Discharge Instructions ---
Discharge Instructions Date of Service Feb 05, 2017. Admission Reason for Admission: Anemia, Hypotension Discharge Discharge Diagnosis / Problem: Anemia, hypotension Discharge Goals Goal(s): Decrease discomfort, Improve function, Increase independence, Improve disease control, Learn about illness, Diagnostic testing, Therapeutic intervention, Prevent Disease Progression Activity Recommendations Activity Limitations: resume your previous activity Exercise/Sports Limitations: none Shower/Bathe: no limitations . Instructions / Follow-Up Instructions / Follow-Up Patient to be discharged home Please note decrease in coreg medication to 6.25 mg by mouth twice a day Please continue all other medications Please follow up with cardiology as scheduled to discuss when to restart plavix/ aspirin Please follow up with surgeon as scheduled as well If worsening bleeding, abdominal pain, fevers, chest pain or shortness of breath please report to ER Current Hospital Diet Patient's current hospital diet: Diabetes Type 2 Diet, AHA Diet (Heart Healthy) Discharge Diet Recommended Diet: AHA Diet (Heart Healthy) Pending Studies Studies pending at discharge: no Laboratory Results Hemoglobin A1c Test 01/25/17 02:10 Range/Units Estimated Average Glucose 160 mg/dl Hemoglobin A1c 7.2 H 4.5-5.6 % Medical Emergencies . Who to Call and When: Medical Emergencies: If at any time you feel your situation is an emergency, please call 911 immediately. . Non-Emergent Contact Non-Emergency issues call your: Primary Care Provider Call Non-Emergent contact if: you have a fever, your pain is worsening . . "Provider Documentation" section prepared by Momo Barros. . VTE Core Measure Inpt VTE Proph given/why not?: SCD's, Contraindicated
[2017-02-05 10:58] VITALS: BP 132/75; PULSE 70; TEMP 36.7; O2SAT 97
--- NOTE | 2017-02-05 11:13 | Discharge Summary ---
Discharge Summary Date of Service Feb 05, 2017. Discharge Summary Admission Date: Feb 03, 2017 at 05:47 Discharge Date: Feb 05, 2017 Discharge Disposition: Home Principal Diagnosis: Hypotension, anemia Immunizations: Have You Had Influenza Vaccine: Yes Influenza Vaccine Date: May 10, 2012 History of Tetanus Vaccine?: Yes Tetanus Immunization Date: May 08, 2006 History of Pneumococcal: Yes Pneumococcal Date: May 10, 2006 History of Hepatitis B Vaccine: Yes Consultations: Cardiology Nephrology Medication Reconciliation New Medications: Carvedilol (Carvedilol) 3.125 Mg Tab 6.25 MG PO BID17 for 30 Days, #60 TAB Continued Medications: Acyclovir (Acyclovir) 400 Mg Tab 400 MG PO BID Albuterol Sulfate (Proair Respiclick) 108 Mcg/Act Aer 2 PUFFS INH QAM Aspirin (Aspirin Ec) 81 Mg Tab 81 MG PO QPM B-Complex Vitamins (Vitamin B Complex) 1 Tab Tab 1 CAP PO QAM Calcium Acetate (Phoslo 667 Mg) 667 Mg Cap 667 MG PO TIDM, CAP Clopidogrel (Plavix) 75 Mg Tab 75 MG PO QAM, TAB Fluticasone Prop/Salmeterol (Advair Diskus 250/50 60 Dose) 1 Ea Aerp 1 PUFF INH Q12 Furosemide (Lasix) 20 Mg Tab 20 MG PO QAM, TAB Glucagon (Glucagon Emergency Kit) 1 Mg Kit 1 DOSE INJ UD PRN for HYPOGLYCEMIA Hydralazine Hcl (Apresoline) 25 Mg Tab 25 MG PO TID Insulin Aspart (novoLOG INSULIN PUMP ) 1 Ea Inj 1 EA N/A UD, EA Isosorbide Mononitrate Ext Rel (Imdur Ext Rel) 120 Mg Ertab 120 MG PO QAM, 0 Refills Lactulose (Chronulac) 10 Gm/15 Ml Syrp 1 DOSE PO DIRECTED PRN for Constipation Levalbuterol (Levalbuterol HCl) 1.25 Mg/3 Ml Nebu 1 VIAL NEB TID PRN for COPD Lorazepam (Ativan) 1 Mg Tab 0.5-1 MG PO BID PRN for Anxiety Montelukast Sod (Montelukast Sodium) 10 Mg Tab 10 MG PO QPM Multiple Vitamins W/ Minerals (Prorenal Qd) 1 Cap Cap 1 CAP PO QAM Nitroglycerin (Nitrostat) 0.4 Mg Tab 0.4 MG UT UD PRN for Chest Pain PLACE ONE TABLET UNDER THE TONGUE EVERY 5 MINUTES FOR UP TO 3 DOSES IF NEEDED FOR CHEST PAIN. Ondansetron Hcl (Zofran) 4 Mg Tab 4 MG PO Q6H PRN for Nausea, TAB Oxycodone/Acetaminophen 5MG/325MG (Percocet 5MG/325MG) Tab 1 TABLET PO HS Pantoprazole (Pantoprazole Sodium) 40 Mg Tab 40 MG PO QAM Polyethylene Glycol 3350 (Miralax) 1 Pow Pow 17 GM PO DAILY PRN for Constipation, #527 GM Ropinirole (Requip) 1 Mg Tab 2 MG PO QPM, TAB Ropinirole Hydrochloride (Requip) 1 Mg Tab 1 MG PO QAM, TAB Rosuvastatin Calcium (Crestor) 20 Mg Tab 20 MG PO DAILY, TAB Sertraline HCl (Sertraline HCl) 50 Mg Tab 50 MG PO QPM Trazodone Hcl (Trazodone) 50 Mg Tab 50 MG PO HS PRN for Sleep, TAB Discontinued Medications: Carvedilol (Coreg) 25 Mg Tab 25 MG PO AMPM Discharge Exam Review of Systems: Constitutional: No fever, No chills, No sweats, No weight loss, No weakness ENT: No hearing loss, No unusual epistaxis, No nasal symptoms, No sore throat, No tinnitus Respiratory: No cough, No sputum, No wheezing, No shortness of breath, No dyspnea on exertion Cardiovascular: No chest pain, No orthopnea, No PND, No edema Abdomen: No pain, No nausea, No vomiting, No diarrhea Musculoskeletal: No joint pain, No muscle pain, No swelling, No calf pain Genitourinary - Male: No hematuria, No dysuria, No urinary frequency, No urinary urgency Neurologic: No memory loss, No paralysis, No weakness, No numbness/tingling Psychiatric: No depression symptoms, No anhedonism, No anxiety, No insomnia Physical Exam: General Appearance: WD/WN, no apparent distress Eyes: normal inspection, PERRL, EOMI, sclerae normal Neck: supple, no adenopathy, thyroid normal, no JVD Respiratory/Chest: chest non-tender, lungs clear, normal breath sounds, no respiratory distress Cardiovascular: regular rate, rhythm, no edema, no gallop, no JVD Abdomen / GI: normal bowel sounds, non tender, soft, no organomegaly Extremities: normal inspection, no calf tenderness, normal capillary refill , no pedal edema Neurologic/Psychiatric: alert, normal mood/affect, normal reflexes, oriented x 3 Hospital Course Symptomatic anemia secondary to GI bleed 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 Normal dialysis days are Monday, and Monday. Stable, tolerating well Diabetes mellitus--he will continue his NovoLog insulin pump, and reactive Accu- Cheks before meals and at bedtime and will use his own coverage scale. COPD--continue Advair discus and have available Xopenex/Atrovent nebulizer every 2 hours when necessary. RLS--cont ropinirole on discharge Hypercholesterolemia--cont crestor on discharge Depression-cont sertraline Continue acyclovir 400 mg by mouth twice a day. Pt is FULL CODE Total Time Spent: Greater than 30 minutes This includes examination of the patient, discharge planning, medication reconciliation, and communication with other providers. Discharge Instructions Please refer to the electronic Patient Visit Report (Discharge Instructions) for additional information. Additional Copies To Arielle Whittaker MD; Arielle Whittaker M.D.
--- NOTE | 2017-02-05 11:19 | PROGRESS NOTE ---
DATE: 02/05/2017 CARDIOLOGY CONSULTATION FOLLOWUP NOTE The patient seen and examined. Chart, medications, telemetry reviewed. SUBJECTIVE: Feels well this morning, tolerated dialysis well yesterday. Notes no dizziness or lightheadedness. Notes no syncope. Notes no tachypalpitations. Notes no chest pains or discomfort. Had a normal-appearing formed stool this morning. OBJECTIVE: VITAL SIGNS: Heart rate 70, blood pressure is 132/75, weight is 85.2 kilograms. NECK: Without jugular venous distention. LUNGS: Reveal generally clear air foley. CARDIOVASCULAR: Regular with a grade 1/6 systolic murmur. There is no diastolic murmur. ABDOMEN: Obese, mild distention. EXTREMITIES: Reveal 1-2+ lower extremity edema. LABORATORY DATA: Sodium is 138, potassium is 3.7, chloride is 103, bicarbonate is 27, BUN is 12, creatinine is 1.8. AST and ALT are trending back downward. GI bleeding scan is normal. IMPRESSION: Complex 56-year-old male admitted after a syncopal event with complex history of recent small-bowel obstruction requiring surgical repair, postoperative continued lower gastrointestinal bleeding. The patient appears stabilized and improved after 2 units transfusion. Blood counts and hemoglobins have stabilized and no signs or symptoms of ongoing further bleeding. The patient was significantly hypotensive on presentation, but now is stabilized after his reduction in medical therapy. I suspect medications at usual dosing may have contributed to current complaints. No overt signs of tachyarrhythmias today. Overall, clinically improved. We will continue reduced dose of carvedilol at 6.25 mg twice per day. I am continuing to hold hydralazine and his statin. We will increase activities in hospital. MTDD
[2017-02-06] MEDS ORDERED: LIDOCAINE/PRILOCAINE 2.5% EA CRM EXT SCH
== END 2017-02-05 11:50 | disposition home or self-care (01) | DRG 393 ==
LOC: C.ED 03:23 → C.2T 05:47 → ENRESERV 05:58 → C.2T 02-04 09:47
PROVIDERS: ADMIT Hospitalist; ATTEND Hospitalist
DX: K91.89 Other postprocedural complications and disorders of digestive system (principal); N18.6 End stage renal disease; K92.2 Gastrointestinal hemorrhage, unspecified; I13.2 Hypertensive heart and chronic kidney disease with heart failure and with stage 5 chronic kidney disease, or end stage renal disease; I50.22 Chronic systolic (congestive) heart failure; D50.0 Iron deficiency anemia secondary to blood loss (chronic); J44.9 Chronic obstructive pulmonary disease, unspecified; Z95.1 Presence of aortocoronary bypass graft; I25.10 Atherosclerotic heart disease of native coronary artery without angina pectoris; I25.2 Old myocardial infarction; G47.33 Obstructive sleep apnea (adult) (pediatric); Z99.2 Dependence on renal dialysis; E11.40 Type 2 diabetes mellitus with diabetic neuropathy, unspecified; I48.91 Unspecified atrial fibrillation; Z98.890 Other specified postprocedural states; E78.00 Pure hypercholesterolemia, unspecified; I95.9 Hypotension, unspecified; Z88.0 Allergy status to penicillin; Z83.2 Family history of diseases of the blood and blood-forming organs and certain disorders involving the immune mechanism; Y92.009 Unspecified place in unspecified non-institutional (private) residence as the place of occurrence of the external cause

== ENCOUNTER → 2017-02-06 | Outpatient (CLI) | payer OTHER ==
[~2017-02-06] MED LIST changes: +B-COTAB18 PO; +CALC667C4 PO; +CARV3.122 PO; +CARV6.252 PO; +CLOP1TAB15 PO; +CRG3125 PO; +CRG625 PO; +FRS/40 PO; +GABA-113 PO; +MCRK20 PO
[2017-02-06 12:17] LABS: BASO % 0.5 %; BASO ABS # 0.05 K/uL (0-0.2); COMPLETE YES; EOS % 1.9 %; HEMATOCRIT 31.9 % (42-52); IG% 0.7 %; LYMPH % 10.4 %; MEAN CELL VOLUME 91.4 fL (80-100); MEAN CORPUSCULAR HEMOGLOBIN 29.8 pg (25-34); MEAN CORPUSCULAR HGB CONC 32.6 g/dl (32-36); MEAN PLATELET VOLUME 12.7 fL (7.4-10.4); MONO % 8.9 %; NEUT % 77.6 %; PLATELET COUNT 286 K/uL (130-400); RED BLOOD COUNT 3.49 M/uL (4.7-6.1); WHITE BLOOD COUNT 9.61 K/uL (4.8-10.8)
== END | disposition home or self-care (01) ==
LOC: C.LAB1850 11:12
PROVIDERS: ATTEND Family Medicine
DX: D64.9 Anemia, unspecified (principal)

== ENCOUNTER 2017-05-20 22:41 | Inpatient (IN) | payer OTHER ==
[~2017-05-20] VITALS: Ht 162.6 cm; Wt 86.1 kg
[~2017-05-20 22:41] MED LIST changes: -B-COCAP20 PO; -CARV25TA2 PO; -CARV3.122 PO; -CARV6.252 PO; -CIPR1TAB11 PO; -CRG625 PO; -FRS/40 PO; -GABA-113 PO; -GUAISYP5 PO; -MCRK20 PO; -METR-163 PO; -PANT40TA2 PO; -PHS667 PO; -PLV75 PO; +PRT/40 PO
[2017-05-20 23:35] LABS: BASO % 0.3 %; BASO ABS # 0.02 K/uL (0-0.2); COMPLETE YES; EOS % 1.7 %; HEMATOCRIT 36.3 % (42-52); IG% 0.3 %; LYMPH % 16.2 %; LYMPH ABS # 1.15 K/uL (1.2-3.4); MEAN CELL VOLUME 81.6 fL (80-100); MEAN CORPUSCULAR HEMOGLOBIN 27.6 pg (25-34); MEAN CORPUSCULAR HGB CONC 33.9 g/dl (32-36); MEAN PLATELET VOLUME 12.2 fL (7.4-10.4); MONO % 11.4 %; NEUT % 70.1 %; PLATELET COUNT 160 K/uL (130-400); RED BLOOD COUNT 4.45 M/uL (4.7-6.1); WHITE BLOOD COUNT 7.11 K/uL (4.8-10.8)
--- NOTE | 2017-05-20 23:38 | EMERGENCY ROOM VISIT NOTE ---
History Report prepared by Dana: Junior Villarreal Under the Supervision of: Dr. Naomie Howard D.O. First contact with patient: 23:04 Chief Complaint: HYPOTENSION Stated Complaint: BP KEEPS DROPPING, TROUBLE BREATHING History of Present Illness The patient is a 56 year old male who presents to the Emergency Room with complaints of intermittent hypotension beginning last night. The patient states he was fine all day yesterday, spent the evening with his family, and then got ready for bed. He reports he went outside to get some air because it was warm inside. The patient notes he went back inside and turned the AC on. He states he went to get up from his bed, and he was wobbling around. The patient reports he checked his blood pressure, and it was low. He notes he checked his blood pressure a few more times, and it returned to normal. The patient states he went to sleep for the night. He reports he woke up, and everything was normal. The patient notes he was fine for the entire day, until he went to [employer]. He states he was in [employer], pushing a cart, when his legs suddenly felt funny, and he was lightheaded. The patient reports he left and went home. He notes he checked his blood pressure when he got home, and it was 88/30. The patient states he retook his blood pressure, and it was 105/35. He reports he went and watched TV for a little, and his blood pressure was 145/52. The patient notes he switched back to peritoneal dialysis a week ago. He states he could feel his heart beat in his buttock. The patient reports he checked his blood sugar, and it was high. He notes if his weight goes up, he adjusts his dialysis. The patient's blood pressure was 107/69 in the room. He denies chest pain, abdominal pain, cramping in his legs, and swelling in his legs. Source of History: patient Onset: last night Position: other (global) Quality: other (hypotension) Timing: intermittent Associated Symptoms: No chest pain, No abdominal pain Note: Associated symptoms: legs feeling funny, lightheadedness Denies: cramping in his legs and swelling in his legs Review of Systems See HPI for pertinent positives & negatives. A total of 10 systems reviewed and were otherwise negative. Past Medical & Surgical Medical Problems: (1) ACS (acute coronary syndrome) (2) Acute renal failure syndrome (3) Asthma (4) Benign hypertension (5) Cholecystectomy (6) Chronic obstructive lung disease (7) Coronary artery bypass grafting (8) Coronary artery disease (9) Diabetes mellitus (10) End stage renal failure on dialysis (11) ESRD on hemodialysis (12) GI bleed (13) Heart disease (14) Hepatitis (15) Hypotension (16) Incarcerated ventral hernia (17) Intermitent atrial fibrillation (18) Myocardial infarction (19) Obstructive sleep apnea syndrome (20) Peritoneal dialysis status (21) Peritonitis associated with peritoneal dialysis (22) Pneumonia (23) Secondary hyperparathyroidism of renal origin Surgical Problems: (1) History of bowel resection (2) History of hernia repair Family History Cancer Diabetes mellitus Heart disease Hypertension Social History Smoking Status: Current Every Day Smoker (snuff daily) Alcohol Use: none Drug Use: none Marital Status: Housing Status: lives with family Occupation Status: disabled Current/Historical Medications Scheduled Aspirin (Aspirin Ec), 81 MG PO QPM B-Complex Vitamins (Vitamin B Complex), 1 CAP PO QAM Carvedilol (Coreg), 6.25 MG PO BID Fluticasone Prop/Salmeterol (Advair Diskus 250/50 60 Dose), 1 PUFF INH Q12 Furosemide (Lasix), 40 MG PO BID Gabapentin (Neurontin), 300 MG PO HS Insulin Aspart (novoLOG INSULIN PUMP ), 1 EA N/A UD Montelukast Sod (Montelukast Sodium), 10 MG PO QPM Multiple Vitamins W/ Minerals (Prorenal Qd), 1 CAP PO QAM Oxycodone/Acetaminophen 5MG/325MG (Percocet 5MG/325MG), 1 TABLET PO HS Pantoprazole (Pantoprazole Sodium), 40 MG PO QAM Ropinirole (Requip), 2 MG PO QPM Ropinirole Hydrochloride (Requip), 1 MG PO QAM Rosuvastatin Calcium (Crestor), 20 MG PO DAILY Sertraline HCl (Sertraline HCl), 50 MG PO QPM Scheduled PRN Acyclovir (Acyclovir), 400 MG PO BID PRN for HERPES FLARES Albuterol Sulfate (Proair Respiclick), 2 PUFFS INH QAM PRN for SOB/Wheezing Glucagon (Glucagon Emergency Kit), 1 DOSE INJ UD PRN for HYPOGLYCEMIA Lactulose (Chronulac), 1 DOSE PO DIRECTED PRN for Constipation Levalbuterol (Levalbuterol HCl), 1 VIAL NEB TID PRN for COPD Lorazepam (Ativan), 0.5-1 MG PO BID PRN for Anxiety Nitroglycerin (Nitrostat), 0.4 MG UT UD PRN for Chest Pain Ondansetron Hcl (Zofran), 4 MG PO Q6H PRN for Nausea Polyethylene Glycol 3350 (Miralax), 17 GM PO DAILY PRN for Constipation Trazodone Hcl (Trazodone), 50 MG PO HS PRN for Sleep Allergies Coded Allergies: Penicillins (Verified Allergy, Severe, HIVES, 01/24/17) BEE STING (Verified Allergy, Intermediate, SWELLING, 01/24/17) DOES NOT REQUIRE EPIPEN PER FAMILY Physical Exam Vital Signs Date Time Temp Pulse Resp B/P (MAP) Pulse Ox O2 Delivery O2 Flow Rate FiO2 05/21/17 01:00 56 18 132/68 98 Room Air 05/21/17 00:06 57 18 133/70 97 Room Air 05/20/17 23:18 99 Room Air 05/20/17 23:18 60 18 107/69 99 Room Air 05/20/17 23:07 56 05/20/17 22:48 36.9 58 18 125/68 99 Room Air Physical Exam HEENT: Head - normocephalic and atraumatic Pupils are equal, round, and reactive to light. Extraocular eye muscles are intact, and sclera are anicteric. Nose - moist nasal mucosa without discharge. Mouth - moist buccal mucosa. Oropharynx is nonerythematous and there is no tonsillar exudate or edema noted. Neck: Supple; no JVD, nuchal rigidity, cervical lymphadenopathy, or auscultated bruits. Heart: Irregular rate and regular rhythm. There is a normal S1 and S2 with no murmurs, clicks, or gallops appreciated. Lungs: Clear to auscultation bilaterally with no wheezes, rales, or rhonchi. Abdomen: Soft, completely nontender, nondistended, with good bowel sounds. There are no palpable pulsatile masses or hepatosplenomegaly. There is no guarding, rigidity, or rebound noted. Extremities: No evidence of cyanosis, clubbing, or edema. There are easily palpable peripheral pulses. Skin: warm and dry with good turgor and no rashes. Medical Decision & Procedures Laboratory Results 05/20/17 23:18 Red Blood Count 4.45, Mean Corpuscular Volume 81.6, Mean Corpuscular Hemoglobin 27.6, Mean Corpuscular Hemoglobin Concent 33.9, Mean Platelet Volume 12.2, Neutrophils (%) (Auto) 70.1, Lymphocytes (%) (Auto) 16.2, Monocytes (%) (Auto) 11.4, Eosinophils (%) (Auto) 1.7, Basophils (%) (Auto) 0.3, Neutrophils # (Auto ) 4.99, Lymphocytes # (Auto) 1.15, Monocytes # (Auto) 0.81, Eosinophils # (Auto ) 0.12, Basophils # (Auto) 0.02 05/20/17 23:18 Test 05/20/17 23:18 White Blood Count 7.11 K/uL (4.8-10.8) Red Blood Count 4.45 M/uL (4.7-6.1) Hemoglobin 12.3 g/dL (14.0-18.0) Hematocrit 36.3 % (42-52) Mean Corpuscular Volume 81.6 fL (80-100) Mean Corpuscular Hemoglobin 27.6 pg (25-34) Mean Corpuscular Hemoglobin Concent 33.9 g/dl (32-36) Platelet Count 160 K/uL (130-400) Mean Platelet Volume 12.2 fL (7.4-10.4) Neutrophils (%) (Auto) 70.1 % Lymphocytes (%) (Auto) 16.2 % Monocytes (%) (Auto) 11.4 % Eosinophils (%) (Auto) 1.7 % Basophils (%) (Auto) 0.3 % Neutrophils # (Auto) 4.99 K/uL (1.4-6.5) Lymphocytes # (Auto) 1.15 K/uL (1.2-3.4) Monocytes # (Auto) 0.81 K/uL (0.11-0.59) Eosinophils # (Auto) 0.12 K/uL (0-0.5) Basophils # (Auto) 0.02 K/uL (0-0.2) RDW Standard Deviation 49.1 fL (36.4-46.3) RDW Coefficient of Variation 16.3 % (11.5-14.5) Immature Granulocyte % (Auto) 0.3 % Immature Granulocyte # (Auto) 0.02 K/uL (0.00-0.02) Anion Gap 13.0 mmol/L (3-11) Est Creatinine Clear Calc Drug Dose 24.7 ml/min Estimated GFR () 23.1 Estimated GFR (Non- 19.9 BUN/Creatinine Ratio 12.0 (10-20) Calcium Level 8.8 mg/dl (8.5-10.1) Total Bilirubin 1.1 mg/dl (0.2-1) Direct Bilirubin 0.6 mg/dl (0-0.2) Aspartate Amino Transf (AST/SGOT) 85 U/L (15-37) Alanine Aminotransferase (ALT/SGPT) 101 U/L (12-78) Alkaline Phosphatase 713 U/L (45-117) Total Creatine Kinase 89 U/L (39-308) Creatine Kinase MB 2.1 ng/ml (0.5-3.6) Creatine Kinase MB Ratio 2.4 (0-3.0) Troponin I 0.209 ng/ml (0-0.045) Total Protein 6.4 gm/dl (6.4-8.2) Albumin 3.2 gm/dl (3.4-5.0) Beta-Hydroxybutyric Acid 0.60 mg/dL (0.2-2.81) Hepatitis C Antibody NEG (NEG) Laboratory results per my review. Medications Administered Medications (Trade) Dose Ordered Sig/Shasha Route Start Time Stop Time Status Last Admin Dose Admin Sodium Chloride 1,000 ml @ 125 mls/hr Q8H STAT IV 05/21/17 00:30 05/21/17 02:07 DC 05/21/17 00:47 125 MLS/HR Procedure 0030: Ordered Sodium Chloride 1000 ml @ 125 mls/hr IV. ECG Indication: other (hypotension) Rate (beats per minute): 60 Rhythm: normal sinus (with frequent PVCs and bigeminy) Findings: T-wave inversion (Lateral) Comparison ECG Date: 02/05/17 Change: T-wave inversions are new ED Course 2306: The patient was evaluated in room A11B. A complete history and physical examination were performed. Nursing notes and previous electronic medical records were reviewed. IV lock was established and labs were drawn as above. A twelve-lead EKG was performed. The patient was observing the night monitor and pulse oximeter. 0030: Ordered Sodium Chloride 1000 ml @ 125 mls/hr IV. 0032: Upon reevaluation, I discussed findings and results with him. The patient is resting comfortably. He verbalized agreement of the treatment plan. 0112: I discussed the patient's case with Dr. Briseno [facility] Hospitalist. He will evaluate the patient for further treatment. Medical Decision The patient is a 56 year old male who presents to the ED with hypotension. Differential diagnosis includes cardiac ischemia, hypoglycemia, hypotension secondary to dehydration, electrolyte abnormality, hyperglycemia. Labs results show: troponin of 0.209, BHA of 0.6, glucose of 331, creatinine of 3.3, Bun of 40, total bilirubin 1.1, direct bilirubin of 0.6, hemoglobin 12.3, normal WBC. This is a 56-year-old male patient on peritoneal dialysis who presents to the emergency department with a near syncopal episode and hypotension. The patient has an elevated troponin but by history has a chronically elevated troponin. However, I was concerned as the patient was having multifocal PVCs, bigeminy, trigeminy, and couplets on the night monitor. Patient was noted to be bradycardic in comparison to previous visits here to our emergency department. The patient was moderately hyperglycemic. I felt he would require cardiac monitoring because of the near syncopal events and multifocal PVCs with couplets. I discussed the case with the [facility] hospitalist and they will evaluate for further management. Medication Reconcilliation Current Medication List: was personally reviewed by me Blood Pressure Screening Patient's blood pressure: Low blood pressure Monitored by hospitalist. Consults Time Called: 38 Consulting Physician: Dr. Briseno [facility] Hospitalist Returned Call: [phone] I discussed the patient's case with Dr. Briseno [facility] Hospitalist. He will evaluate the patient for further treatment. Impression Primary Impression: Hyperglycemia Additional Impressions: Bradycardia Near syncope Scribe Attestation The scribe's documentation has been prepared under my direction and personally reviewed by me in its entirety. I confirm that the note above accurately reflects all work, treatment, procedures, and medical decision making performed by me. Departure Information Dispostion Being Evaluated By Hospitalist Referrals Arielle Whittaker MD (PCP) Patient Instructions [facility] Problem Qualifiers
[2017-05-20 23:57] LABS: CALCIUM 8.8 mg/dl (8.5-10.1); CREATININE 3.3 mg/dl (0.60-1.40); POTASSIUM 3.5 mmol/L (3.5-5.1)
[2017-05-21] VITALS (8 sets, daily range): BP systolic 124–191; BP diastolic 63–84; PULSE 49–66; TEMP 36.4–37.1; O2SAT 58–99; BMI 31.0
[2017-05-21 00:23] LABS: BETA-HYDROXYBUTYRATE 0.6 mg/dL (0.2-2.81); CKMB/CK RATIO 2.4 (0-3.0)
[2017-05-21] MEDS ORDERED: CARV6.252 PO (00:24)
[2017-05-21] MEDS ORDERED: FRS/40 PO (00:26)
[2017-05-21] MEDS ORDERED: SODIUM CHLORIDE 0.9% 1000ML 1,000 ML IV STA (00:30)
[2017-05-21] MEDS ORDERED: GABA-113 PO (00:44)
--- NOTE | 2017-05-21 01:06 | History and Physical ---
History & Physical Date & Time of Service: May 21, 2017 at 00:53 Chief Complaint: Bp Keeps Dropping, Trouble Breathing Primary Care Physician: Arielle Whittaker MD History of Present Illness Source: patient 56 y/o M Hx CAD - STEMI 01/24/17, combined CHF, HTN, PAF, ESRD - peritoneal dialysis w/history of peritonitis, recent incarcerated ventral hernia requiring surgical resection, recent GI bleed at surgical anastomosis. Following surgery in January the pt had been placed on hemodialysis and one week ago switched back to peritoneal dialysis. Over the past 1-2 days he has had bouts of symptomatic hypotension. He describes acute lightheadedness and two near-syncopal episodes where he was forced to sit down. During one of these episodes he states that he measured his blood pressure and his systolic pressure was in the mid 80s. After sitting down for a period his blood pressure normalized. He denies any CP , abdominal pain, nausea/vomiting, diarrhea, dysuria or fevers. While on monitor in the ER, frequent PVCs and couplets were noted. He apparently reported discomfort - not pain - related to PVCs per the ER attending, although he denied this at the time of admission. The was admitted to [facility] 01/24/17 with a STEMI - he underwent emergent cath and was then transferred to [facility] for medical management in consideration of recent GI surgery. Cath report indicated severe chitina multivessel coronary artery disease - Occluded mid LAD - Occluded proximal RCA - 80% proximal OM2; 90% distal OM2 stenosis after SVG anastomosis - Patent HDZ to LAD, SVG to OM2 Past Medical/Surgical History Medical Problems: (1) ESRD (2) Peritoneal dialysis with history of peritonitis (3) Benign hypertension (4) Cholecystectomy (5) Chronic obstructive lung disease (6) CAD - [place] - 2 vessel CABG 2015 (7) Diabetes mellitus (8) Obstructive sleep apnea syndrome (9) Incarcerated ventral hernia 02/04 (10) Chronic systolic and diastolic CHF - EF 30-35% 2014 - grade 2 diastolic dysfunction reported (12) Chronic troponin elevation (~.200) (13) Chronically elevated LFT (14) Paroxysmal atrial fibrillation (15) Restless leg syndrome (16) Depression Surgical Problems: (1) History of bowel resection (2) History of hernia repair (3) Dialysis graft (4) CABG Family History Cancer Diabetes mellitus Heart disease Hypertension Social History The pt states he only smoked rarely years ago to keep away bugs when he was mowing the grass. He chews tobacco daily Smoking Status: Never Smoker Smokeless Tobacco Use: Yes Drug Use: none Marital Status: Housing status: lives with family Occupational Status: disabled Immunizations History of Influenza Vaccine: Yes Influenza Vaccine Date: May 10, 2012 History of Tetanus Vaccine?: Yes Tetanus Immunization Date: May 08, 2006 History of Pneumococcal: Yes Pneumococcal Date: May 10, 2006 History of Hepatitis B Vaccine: Yes Multi-Drug Resistant Organisms History of MDRO: No Allergies Coded Allergies: Penicillins (Verified Allergy, Severe, HIVES, 01/24/17) BEE STING (Verified Allergy, Intermediate, SWELLING, 01/24/17) DOES NOT REQUIRE EPIPEN PER FAMILY Home Medications Scheduled Aspirin (Aspirin Ec), 81 MG PO QPM B-Complex Vitamins (Vitamin B Complex), 1 CAP PO QAM Carvedilol (Coreg), 6.25 MG PO BID Fluticasone Prop/Salmeterol (Advair Diskus 250/50 60 Dose), 1 PUFF INH Q12 Furosemide (Lasix), 40 MG PO BID Gabapentin (Neurontin), 300 MG PO HS Insulin Aspart (novoLOG INSULIN PUMP ), 1 EA N/A UD Montelukast Sod (Montelukast Sodium), 10 MG PO QPM Multiple Vitamins W/ Minerals (Prorenal Qd), 1 CAP PO QAM Oxycodone/Acetaminophen 5MG/325MG (Percocet 5MG/325MG), 1 TABLET PO HS Pantoprazole (Pantoprazole Sodium), 40 MG PO QAM Ropinirole (Requip), 2 MG PO QPM Ropinirole Hydrochloride (Requip), 1 MG PO QAM Rosuvastatin Calcium (Crestor), 20 MG PO DAILY Sertraline HCl (Sertraline HCl), 50 MG PO QPM Scheduled PRN Acyclovir (Acyclovir), 400 MG PO BID PRN for HERPES FLARES Albuterol Sulfate (Proair Respiclick), 2 PUFFS INH QAM PRN for SOB/Wheezing Glucagon (Glucagon Emergency Kit), 1 DOSE INJ UD PRN for HYPOGLYCEMIA Lactulose (Chronulac), 1 DOSE PO DIRECTED PRN for Constipation Levalbuterol (Levalbuterol HCl), 1 VIAL NEB TID PRN for COPD Lorazepam (Ativan), 0.5-1 MG PO BID PRN for Anxiety Nitroglycerin (Nitrostat), 0.4 MG UT UD PRN for Chest Pain Ondansetron Hcl (Zofran), 4 MG PO Q6H PRN for Nausea Polyethylene Glycol 3350 (Miralax), 17 GM PO DAILY PRN for Constipation Trazodone Hcl (Trazodone), 50 MG PO HS PRN for Sleep Review of Systems Constitutional: No fever, No chills, No sweats Eyes: No worsening of vision ENT: No hearing loss, No unusual epistaxis, No nasal symptoms Respiratory: No cough, No sputum, No wheezing Cardiovascular: No chest pain, No orthopnea, No PND Abdomen: No pain, No nausea, No vomiting Musculoskeletal: No joint pain Genitourinary - Male: No hematuria Neurologic: No memory loss, No paralysis Psychiatric: No depression symptoms Endocrine: No fatigue Hematologic / Lymphatic: No abnormal bleeding/bruising Integumentary: No rash Allergic / Immunologic: No environmental allergies Physical Exam Vital Signs Date Time Temp Pulse Resp B/P (MAP) Pulse Ox O2 Delivery O2 Flow Rate FiO2 05/21/17 00:06 57 18 133/70 97 Room Air 05/20/17 23:18 99 Room Air 05/20/17 23:18 60 18 107/69 99 Room Air 05/20/17 23:07 56 05/20/17 22:48 36.9 58 18 125/68 99 Room Air General Appearance: WD/WN, no apparent distress, + pertinent finding (PLeasant , middle-aged male in no distress) Head: normocephalic Eyes: normal inspection ENT: normal ENT inspection, hearing grossly normal, TMs normal, pharynx normal Neck: supple, no JVD Respiratory/Chest: chest non-tender, lungs clear, normal breath sounds Cardiovascular: regular rate, rhythm, no edema, no gallop Abdomen/GI: normal bowel sounds, non tender, + pertinent finding (Abdomen is soft - fluid present - no tenderness to palpation - no iduration at dialysis site) Back: normal inspection, no CVA tenderness Extremities/Musculoskelatal: normal inspection Neurologic/Psych: dampener II-XII nml as tested, no motor/sensory deficits, alert, normal mood/affect, normal reflexes, oriented x 3 Skin: normal color, warm/dry Diagnostics Laboratory Results Results Past 24 Hours Test 05/20/17 23:18 Range/Units White Blood Count 7.11 4.8-10.8 K/uL Red Blood Count 4.45 4.7-6.1 M/uL Hemoglobin 12.3 14.0-18.0 g/dL Hematocrit 36.3 42-52 % Mean Corpuscular Volume 81.6 80-100 fL Mean Corpuscular Hemoglobin 27.6 25-34 pg Mean Corpuscular Hemoglobin Concent 33.9 32-36 g/dl Platelet Count 160 130-400 K/uL Mean Platelet Volume 12.2 7.4-10.4 fL Neutrophils (%) (Auto) 70.1 % Lymphocytes (%) (Auto) 16.2 % Monocytes (%) (Auto) 11.4 % Eosinophils (%) (Auto) 1.7 % Basophils (%) (Auto) 0.3 % Neutrophils # (Auto) 4.99 1.4-6.5 K/uL Lymphocytes # (Auto) 1.15 1.2-3.4 K/uL Monocytes # (Auto) 0.81 0.11-0.59 K/uL Eosinophils # (Auto) 0.12 0-0.5 K/uL Basophils # (Auto) 0.02 0-0.2 K/uL RDW Standard Deviation 49.1 36.4-46.3 fL RDW Coefficient of Variation 16.3 11.5-14.5 % Immature Granulocyte % (Auto) 0.3 % Immature Granulocyte # (Auto) 0.02 0.00-0.02 K/uL Sodium Level 135 136-145 mmol/L Potassium Level 3.5 3.5-5.1 mmol/L Chloride Level 100 98-107 mmol/L Carbon Dioxide Level 22 21-32 mmol/L Anion Gap 13.0 3-11 mmol/L Blood Urea Nitrogen 40 7-18 mg/dl Creatinine 3.30 0.60-1.40 mg/dl Est Creatinine Clear Calc Drug Dose 24.7 ml/min Estimated GFR () 23.1 Estimated GFR (Non- 19.9 BUN/Creatinine Ratio 12.0 10-20 Random Glucose 331 70-99 mg/dl Calcium Level 8.8 8.5-10.1 mg/dl Total Bilirubin 1.1 0.2-1 mg/dl Direct Bilirubin 0.6 0-0.2 mg/dl Aspartate Amino Transf (AST/SGOT) 85 15-37 U/L Alanine Aminotransferase (ALT/SGPT) 101 12-78 U/L Alkaline Phosphatase 713 45-117 U/L Total Creatine Kinase 89 39-308 U/L Creatine Kinase MB 2.1 0.5-3.6 ng/ml Creatine Kinase MB Ratio 2.4 0-3.0 Troponin I 0.209 0-0.045 ng/ml Total Protein 6.4 6.4-8.2 gm/dl Albumin 3.2 3.4-5.0 gm/dl Beta-Hydroxybutyric Acid 0.60 0.2-2.81 mg/dL EKG Sinus , frequent PVCs , rate 60 or lower , R axis, previous anterior infarct Impression Assessment and Plan 56 y/o M Hx CAD - STEMI 01/24/17, combined CHF, HTN, PAF, ESRD - peritoneal dialysis w/history of peritonitis, recent incarcerated ventral hernia requiring surgical resection, recent GI bleed at surgical anastomosis. Following surgery in January the pt had been placed on hemodialysis and one week ago switched back to peritoneal dialysis. Over the past 1-2 days he has had bouts of symptomatic hypotension. He describes acute lightheadedness and two near-syncopal episodes where he was forced to sit down. During one of these episodes he states that he measured his blood pressure and his systolic pressure was in the mid 80s. After sitting down for a period his blood pressure normalized. He denies any CP , abdominal pain, nausea/vomiting, diarrhea, dysuria or fevers. While on monitor in the ER, frequent PVCs and couplets were noted. He apparently reported discomfort - not pain - related to PVCs per the ER attending, although he denied this at the time of admission. 1) Hypotension - near syncope - may be related to recent dialysis transition - we have provided gentle hydration and will consult nephrology - monitor on telemetry - orthostatics with vitals. Coreg dose reduced, Furosemide held. 2) PVCs - borderline bradycardia noted - we will request a cardiology consult considering recent history. Coreg dose reduced. 3) ESRD - peritoneal dialysis - as above, nephrology consult requested 4) CAD - no evidence of ACS - trop is chronically elevated but at or below baseline 5) CHF - will require careful volume monitoring as we are holding Lasix, providing IVF and decreasing Coreg 6) IDDM - can continue Insulin pump use Full code - SCDs only due to recent GI bleed Total time for this admit including review of labs, meds, EKG, extensive recent records - discussion with pt and ER attending - 50 min Level of Care Telemetry Resuscitation Status FULL RESUSCITATION VTE Prophylaxis Given or contraindicated: SCD's
[2017-05-21] MEDS ORDERED: ACETAMINOPHEN 325 MG TAB PO PRN (01:15)
[2017-05-21] MEDS ORDERED: MoRPHine SULFATE 2 MG/ML CARP IV PRN (01:15)
[2017-05-21] MEDS ORDERED: POLYETHYLENE (MIRALAX) 17 GM PACK PO PRN (01:15)
[2017-05-21] MEDS ORDERED: TRAZODONE HCL 50 MG TAB PO PRN (02:00)
[2017-05-21] MEDS ORDERED: ACYCLOVIR 400 MG TAB PO PRN (02:00)
[2017-05-21] MEDS ORDERED: ONDANSETRON 4 MG TAB PO PRN (02:00)
[2017-05-21] MEDS ORDERED: LEVALBUTEROL 1.25MG/3ML NEB INH PRN (02:00)
[2017-05-21] MEDS ORDERED: LORAZEPAM 1 MG TAB PO PRN (02:00)
[2017-05-21] MEDS ORDERED: INSULIN IV INFUSION PROTOCOL STA (02:32)
[2017-05-21] MEDS ORDERED: INSULIN PROTOCOL GOAL RANGE ONE (02:45)
[2017-05-21] MEDS ORDERED: DC ALL PREVIOUSLY ORDERED DIABETES MEDS ONE (02:45)
[2017-05-21] MEDS ORDERED: MODERATE STRESS LEVEL ONE (02:45)
[2017-05-21] MEDS ORDERED: GLUCOSE 10 TABS/TUBE PO PRN (03:00)
[2017-05-21] MEDS ORDERED: INSULIN HUMAN REGULAR IV BOLUS 2 UNIT in SYRINGE 0 ML IV SCH (03:00)
[2017-05-21] MEDS ORDERED: GLUCOSE 40% GEL 15 GM TUBE PO PRN (03:00)
[2017-05-21] MEDS ORDERED: DEXTROSE 50% 50 ML SYR IV PRN (03:00)
[2017-05-21] MEDS ORDERED: GLUCAGON FOR INJ 1 MG VIAL SQ PRN (03:00)
[2017-05-21] MEDS ORDERED: INSULIN REGULAR 250 UNITS in SODIUM CHLORIDE 0.9% 250ML 250 ML IV SCH (03:00)
[2017-05-21] MEDS ORDERED: ALBUTEROL HFA 8 GM INHALER INH PRN (03:00)
[2017-05-21] MEDS ORDERED: SODIUM CHLORIDE 0.9% 1000ML 1,000 ML IV SCH (03:45)
[2017-05-21] MEDS ORDERED: NovoLOG INSULIN PUMP SCH (07:00)
[2017-05-21 07:43] LABS: BUN/CREATININE RATIO 15.2 (10-20); CALCIUM 8.7 mg/dl (8.5-10.1); CREATININE 2.9 mg/dl (0.60-1.40); MAGNESIUM 2.4 mg/dl (1.8-2.4); POTASSIUM 3.1 mmol/L (3.5-5.1)
[2017-05-21 07:51] LABS: HEMATOCRIT 38.3 % (42-52); MEAN CELL VOLUME 81.5 fL (80-100); MEAN CORPUSCULAR HEMOGLOBIN 27.4 pg (25-34); MEAN CORPUSCULAR HGB CONC 33.7 g/dl (32-36); MEAN PLATELET VOLUME 13.4 fL (7.4-10.4); PLATELET COUNT 159 K/uL (130-400); WHITE BLOOD COUNT 11.53 K/uL (4.8-10.8)
[2017-05-21] MEDS ORDERED: INSULIN ASPART 100 UNITS/ML 3 ML PEN SC SCH (08:00)
[2017-05-21] MEDS ORDERED: PHARMACY GLYCEMIC MGMT CONSULT PRN (08:11)
[2017-05-21] MEDS: FLUTICASONE/SALMETEROL 250/50 (ADVAIR) 14 PUFF/1 INHALER INH SCH ×2 (08:28→21:00)
[2017-05-21] MEDS: CEROVITE ADV FORMULA TAB PO SCH (08:28)
[2017-05-21] MEDS: ROSUVASTATIN CALCIUM 20 MG TAB PO SCH (08:28)
[2017-05-21] MEDS: CARVEDILOL 3.125 MG TAB PO SCH ×2 (08:28→22:50)
[2017-05-21] MEDS: PANTOprazole SOD 40 MG TAB PO SCH (08:29)
[2017-05-21] MEDS: VITAMIN B COMPLEX TAB PO SCH (08:29)
[2017-05-21] MEDS ORDERED: FUROSEMIDE 40 MG TAB PO SCH (09:00)
[2017-05-21] MEDS: ROPINIROLE HCL 1 MG TAB PO SCH (09:03)
--- NOTE | 2017-05-21 09:24 | Pharmacy Progress Note ---
Glycemic Control Intl Consult Date of Service May 21, 2017. Scope Glycemic Pharmacist consulted by Dr Anna on 05/21/17 for glycemic control and to write orders per [facility] inpatient glycemic control protocol Objective Weight (Kilograms): 81.900 Accuchecks BSG (last 24hrs): Test 05/20/17 23:18 05/21/17 04:25 05/21/17 04:37 05/21/17 05:33 Random Glucose 331 mg/dl (70-99) Bedside Glucose 39 mg/dl (70-99) 284 mg/dl (70-99) 74 mg/dl (70-99) Test 05/21/17 05:47 05/21/17 06:13 05/21/17 06:27 Bedside Glucose 53 mg/dl (70-99) 120 mg/dl (70-99) Random Glucose 54 mg/dl (70-99) Laboratory Data (last 24hrs) Test 05/20/17 23:18 05/21/17 06:27 Anion Gap 13.0 mmol/L 10.0 mmol/L BUN/Creatinine Ratio 12.0 15.2 Blood Urea Nitrogen 40 mg/dl 44 mg/dl Creatinine 3.30 mg/dl 2.90 mg/dl Potassium Level 3.5 mmol/L 3.1 mmol/L Sodium Level 135 mmol/L 138 mmol/L White Blood Count 7.11 K/uL 11.53 K/uL Red Blood Count 4.45 M/uL Hemoglobin 12.3 g/dL Hematocrit 36.3 % Mean Corpuscular Volume 81.6 fL Mean Corpuscular Hemoglobin 27.6 pg Mean Corpuscular Hemoglobin Concent 33.9 g/dl Platelet Count 160 K/uL Mean Platelet Volume 12.2 fL Neutrophils (%) (Auto) 70.1 % Lymphocytes (%) (Auto) 16.2 % Monocytes (%) (Auto) 11.4 % Eosinophils (%) (Auto) 1.7 % Basophils (%) (Auto) 0.3 % Neutrophils # (Auto) 4.99 K/uL Lymphocytes # (Auto) 1.15 K/uL Monocytes # (Auto) 0.81 K/uL Eosinophils # (Auto) 0.12 K/uL Basophils # (Auto) 0.02 K/uL HbA1c Test 05/21/17 06:27 Recent Pertinent Medications Outpatient Anti-diabetic Regimen: * Medtronic insulin pump (I reviewed pumps programming at bedside): * Basal settings: 6232-0847 1.05units/hr, [id number] 1.1units/hr, [id number] 1.05units/hr, [id number] 1.2 units/hr, total daily basal = 25.75units * Goal range: 160-200mg/dL * Correction factor: 40mg/dL/unit * Carb ratio: 1 unit per 10 grams carbs Risk Factors for Insulin Resistance: * Diet: ordered type 2 DM / renal diet; he had his breakfast tray in front of him this AM when seen Assessment & Plan ASSESSMENT: 05/21/17 * Type 1 diabetic known to the glycemic control service from prior hospitalizations * Patient was admitted last evening due to c/o near syncope, lightheadedness and hypotension. It sounds as though he has had multiple episodes over the last few days. Of note, he has h/o STEMI, CABG, CHF, a fib and GIB. * Of note he has a h/o nocturnal peritoneal dialysis. In late December the patient reports he was dx with incarcerated hernia that involved the PD cath and required surgery to have his PD cath removed at that time w/ repair of hernia. He had been on hemodialysis since then, however last week he restart his PD treatments. * He manages his diabetes w/ an insulin pump. He states that the current pump settings were programmed at the end of January by [facility]. * When he initially presented he had BSG in low 300's and mildly elevated AG (13 ) but with normal bicarb and no ketonemia. He was started on an insulin drip and his pump was placed on hold. After receiving 2 unit IV bolus of insulin and drip at 2units/hr he developed hypoglycemia (BSG down to 39), this was treated with OJ and drip was restarted at 1unit/hr however his BSG again dropped into the 50-70's range. The drip was then placed on hold. * I plan to restart the patient's insulin pump per his home settings and check BSG Q 1 hr initially this AM given labile BSGs and significant lows. * He last changed his site ~2-3 days ago and he believes he is due for a site change today. He will ask his to bring pump supplies to the hospital today. PLAN FOR INPATIENT GLYCEMIC CONTROL: * Restarting insulin pump per his home settings. * Check BSGs Q 1 hr initially until we establish his pump and site are functioning appropriately * Change pump site today when his supplies arrive (pt can dose this on his own) * I can work with the patient to adjust his pump settings if necessary - he stated he is able to adjust his settings if required. * Please note that the plan above was derived based on current level of insulin resistance and hospital stress. These recommendations are appropriate for inpatient admission only. Plan of care upon discharge will need to be reassessed to avoid potential outpatient hypo/hyperglycemia. Thank you.
[2017-05-21] MEDS ORDERED: INSULIN ASPART 100 UNITS/ML VIAL SC PRN (09:30)
[2017-05-21] MEDS: NovoLOG INSULIN PUMP SCH ×3 (11:29→21:00)
--- NOTE | 2017-05-21 11:46 | Nephrology Consultation ---
Nephrology Consultation Date & Providers Date of Consultation: May 21, 2017. Primary Care Provider: Arielle Whittaker MD Referring Provider: Reason for Consultation ESRD on PD History of Present Illness Mr. Caro is a 56 year old white male who is seen at the request of Dr. Briseno to provide peritoneal dialysis during his hospitalization and assist with his medical management. Medical records in the hospital EMR were reviewed today and are summarized as follows: Mr. Caro has a complex medical history. This includes inoperable 3 vessel ASCVD, AODM, HTN, COPD, ROBERT and ESRD. Patient developed cardiorenal syndrome and required initiation of IHD 09/02. He transitioned to NCCPD 01/31. Mr. Caro did well on NCCPD until 01/04 when he developed an incarcerated hernia at the site of his PD catheter. He was transferred to [facility] where he underwent resection of the ischemic bowel and removal of his PD catheter. He was placed back on IHD. Shortly after returning home he began to experience melena. He returned to the hospital and was found to be profoundly anemic. Cardiac enzymes were elevated. He was again transferred to [facility]. No surgical intervention was required. His condition stablized with blood transfusion. He was discharged to home 02/01/17 and received IHD the following day. In April 2017 Mr. Caro had a new PD catheter placed by Dr. Newman. Two weeks ago he resumed his NCCPD therapy. Over the last two days he has been experiencing weakness, orthostasis and has suffered two near syncopal events. In the ED Mr. Caro was found to have HR 40 - 60 bpm with frequent PVC's, bigeminy and trigeminy. He was admitted last evening for cardiac monitoring. PD was not ordered last night due to relative hypotension and acceptable electrolyte balance. Past Medical/Surgical History Medical: # ESRD due to diabetic nephropathy, hypertensive nephrosclerosis and advanced ICM. COMMODITIES BROKER started 09/02 # Transitioned to NCCPD 01/31 # HTN # IDDM - on insulin pump (Motorcycle Delivery Driver = Dr. Jean Marie Gray / [place], [place]) # ASCVD s/p CABG x 2 2005. Chain Saw Mechanic = Dr. Bruce Shepherd # COPD # ROBERT Surgical: # PD catheter removed 02/04 due to incarcerated hernia # CAPD catheter placed 12/[address] Simoni # CABG x 2 2005 Allergies Coded Allergies: Penicillins (Verified Allergy, Severe, HIVES, 01/24/17) BEE STING (Verified Allergy, Intermediate, SWELLING, 01/24/17) DOES NOT REQUIRE EPIPEN PER FAMILY Inpatient Medications Current Inpatient Medications Medications (Trade) Dose Ordered Sig/Shasha Route Start Time Stop Time Status Last Admin Dose Admin Acetaminophen (Tylenol Tab) 650 mg Q4H PRN PO 05/21/17 01:15 06/20/17 01:14 Morphine Sulfate (MoRPHine SULFATE INJ) 2 mg Q30M PRN IV 05/21/17 01:15 06/04/17 01:14 Polyethylene (Miralax Powder Packet) 17 gm DAILY PRN PO 05/21/17 01:15 06/20/17 01:14 Acyclovir (Zovirax Tab) 400 mg BID PRN PO 05/21/17 02:00 05/31/17 01:59 Aspirin (Ecotrin Tab) 81 mg QPM PO 05/21/17 21:00 06/20/17 20:59 Salmeterol Xinafoate/ Fluticasone (Advair Diskus 250/50 Inh) 1 puff Q12 INH 05/21/17 09:00 06/20/17 08:59 05/21/17 08:28 1 PUFF Gabapentin (Neurontin Cap) 300 mg HS PO 05/21/17 21:00 06/20/17 20:59 Levalbuterol (Xopenex 1.25MG/ 3ML Neb) 1.25 mg Q8H PRN INH 05/21/17 02:00 06/20/17 01:59 Lorazepam (Ativan Tab) 1 mg BID PRN PO 05/21/17 02:00 06/20/17 01:59 Montelukast Sodium (Singulair Tab) 10 mg QPM PO 05/21/17 21:00 06/20/17 20:59 Ondansetron HCl (Zofran Tab) 4 mg Q6H PRN PO 05/21/17 02:00 06/20/17 01:59 Oxycodone/ Acetaminophen (Percocet 5-325mg Tab) 1 tab HS PO 05/21/17 21:00 06/04/17 20:59 Pantoprazole Sodium (Protonix Tab) 40 mg QAM PO 05/21/17 09:00 06/20/17 08:59 05/21/17 08:29 40 MG Ropinirole HCl (Requip Tab) 2 mg QPM PO 05/21/17 21:00 06/20/17 20:59 Ropinirole HCl (Requip Tab) 1 mg QAM PO 05/21/17 09:00 06/20/17 08:59 05/21/17 09:03 1 MG Rosuvastatin Calcium (Crestor Tab) 20 mg DAILY PO 05/21/17 09:00 06/20/17 08:59 05/21/17 08:28 20 MG Sertraline HCl (Zoloft Tab) 50 mg QPM PO 05/21/17 21:00 06/20/17 20:59 Trazodone HCl (Desyrel Tab) 50 mg HS PRN PO 05/21/17 02:00 06/20/17 01:59 Albuterol (Ventolin Hfa Inhaler) 2 puffs QAM PRN INH 05/21/17 03:00 06/20/17 02:59 Vitamin B Complex (Vitamin B Complex) 1 tab DAILY PO 05/21/17 09:00 06/20/17 08:59 05/21/17 08:29 1 TAB Multivitamins/ Minerals (Multivitamin W/ Minerals Tab) 1 tab QAM PO 05/21/17 09:00 06/20/17 08:59 05/21/17 08:28 1 TAB Carvedilol (Coreg Tab) 3.125 mg BID PO 05/21/17 09:00 06/20/17 08:59 05/21/17 08:28 3.125 MG Glucose (Glucose 40% Gel) UD PRN PO 05/21/17 03:00 06/20/17 02:59 Glucose (Glucose Chew Tab) 1 tabs UD PRN PO 05/21/17 03:00 06/20/17 02:59 Dextrose (Dextrose 50% 50ML Syringe) 50 ml UD PRN IV 05/21/17 03:00 06/20/17 02:59 Glucagon (Glucagon Inj) 1 mg UD PRN SQ 05/21/17 03:00 06/20/17 02:59 Sodium Chloride 1,000 ml @ 75 mls/hr [id number] IV 05/21/17 03:45 06/20/17 03:44 05/21/17 04:05 75 MLS/HR Miscellaneous Information (Consult Glycemic Management Pharmacy) 1 ea UD PRN N/A 05/21/17 08:11 06/20/17 08:10 Insulin Aspart (novoLOG INSULIN PUMP) 1 ea ACHS N/A 05/21/17 11:00 06/20/17 10:59 05/21/17 11:29 1 EA Insulin Aspart (novoLOG ASPART) FOR PUMP REFILLS PRN PRN SC 05/21/17 09:30 06/20/17 09:29 Family History Cancer Diabetes mellitus Heart disease Hypertension Negative for CKD / ESRD Social History Smoking Status: Former Smoker Smokeless Tobacco Use: Yes Drug Use: none Marital Status: Housing Status: lives with family Occupation: disabled . Medically disabled. Former smoker (quit 2000) Review of Systems Constitutional: No fever Respiratory: No shortness of breath Cardiovascular: No chest pain Abdomen: No pain, No nausea, No vomiting Genitourinary - Male: No dysuria A complete review of systems was performed. Pertinent positives are noted above. All other systems are negative. Physical Exam Date Time Temp Pulse Resp B/P (MAP) Pulse Ox O2 Delivery O2 Flow Rate FiO2 05/21/17 08:00 Room Air 05/21/17 07:30 37.0 60 20 140/75 (96) 96 Room Air 05/21/17 04:28 36.4 66 14 191/84 (119) 97 Room Air 05/21/17 03:14 36.7 49 18 132/63 (86) 99 Room Air 05/21/17 02:05 36.7 60 18 132/69 99 Room Air 05/21/17 01:31 56 18 138/62 97 05/21/17 01:00 56 18 132/68 98 Room Air 05/21/17 00:06 57 18 133/70 97 Room Air 05/20/17 23:18 99 Room Air 05/20/17 23:18 60 18 107/69 99 Room Air 05/20/17 23:07 56 05/20/17 22:48 36.9 58 18 125/68 99 Room Air General Appearance: no apparent distress Head: normocephalic, atraumatic Eyes: PERRL, EOMI Neck: supple, no adenopathy Respiratory/Chest: lungs clear Cardiovascular: + bradycardia Abdomen/GI: normal bowel sounds, non tender, soft, + pertinent finding (PD exit site without erythema or drainage) Extremities/Musculoskelatal: no calf tenderness, no pedal edema, + pertinent finding (AVF + bruit) Neurologic/Psych: alert, oriented x 3 Laboratory Results Last 24 Hours Test 05/20/17 23:18 05/21/17 04:25 05/21/17 04:37 05/21/17 05:33 White Blood Count 7.11 K/uL Red Blood Count 4.45 M/uL Hemoglobin 12.3 g/dL Hematocrit 36.3 % Mean Corpuscular Volume 81.6 fL Mean Corpuscular Hemoglobin 27.6 pg Mean Corpuscular Hemoglobin Concent 33.9 g/dl Platelet Count 160 K/uL Mean Platelet Volume 12.2 fL Neutrophils (%) (Auto) 70.1 % Lymphocytes (%) (Auto) 16.2 % Monocytes (%) (Auto) 11.4 % Eosinophils (%) (Auto) 1.7 % Basophils (%) (Auto) 0.3 % Neutrophils # (Auto) 4.99 K/uL Lymphocytes # (Auto) 1.15 K/uL Monocytes # (Auto) 0.81 K/uL Eosinophils # (Auto) 0.12 K/uL Basophils # (Auto) 0.02 K/uL RDW Standard Deviation 49.1 fL RDW Coefficient of Variation 16.3 % Immature Granulocyte % (Auto) 0.3 % Immature Granulocyte # (Auto) 0.02 K/uL Sodium Level 135 mmol/L Potassium Level 3.5 mmol/L Chloride Level 100 mmol/L Carbon Dioxide Level 22 mmol/L Anion Gap 13.0 mmol/L Blood Urea Nitrogen 40 mg/dl Creatinine 3.30 mg/dl Est Creatinine Clear Calc Drug Dose 24.7 ml/min Estimated GFR () 23.1 Estimated GFR (Non- 19.9 BUN/Creatinine Ratio 12.0 Random Glucose 331 mg/dl Calcium Level 8.8 mg/dl Total Bilirubin 1.1 mg/dl Direct Bilirubin 0.6 mg/dl Aspartate Amino Transf (AST/SGOT) 85 U/L Alanine Aminotransferase (ALT/SGPT) 101 U/L Alkaline Phosphatase 713 U/L Total Creatine Kinase 89 U/L Creatine Kinase MB 2.1 ng/ml Creatine Kinase MB Ratio 2.4 Troponin I 0.209 ng/ml Total Protein 6.4 gm/dl Albumin 3.2 gm/dl Beta-Hydroxybutyric Acid 0.60 mg/dL Hepatitis C Antibody NEG Bedside Glucose 39 mg/dl 284 mg/dl 74 mg/dl Test 05/21/17 05:47 05/21/17 06:13 05/21/17 06:27 05/21/17 07:23 Bedside Glucose 53 mg/dl 120 mg/dl 72 mg/dl White Blood Count 11.53 K/uL Red Blood Count 4.70 M/uL Hemoglobin 12.9 g/dL Hematocrit 38.3 % Mean Corpuscular Volume 81.5 fL Mean Corpuscular Hemoglobin 27.4 pg Mean Corpuscular Hemoglobin Concent 33.7 g/dl RDW Standard Deviation 49.3 fL RDW Coefficient of Variation 16.4 % Platelet Count 159 K/uL Mean Platelet Volume 13.4 fL Sodium Level 138 mmol/L Potassium Level 3.1 mmol/L Chloride Level 102 mmol/L Carbon Dioxide Level 26 mmol/L Anion Gap 10.0 mmol/L Blood Urea Nitrogen 44 mg/dl Creatinine 2.90 mg/dl Est Creatinine Clear Calc Drug Dose 27.8 ml/min Estimated GFR () 27.0 Estimated GFR (Non- 23.3 BUN/Creatinine Ratio 15.2 Random Glucose 54 mg/dl Calcium Level 8.7 mg/dl Magnesium Level 2.4 mg/dl Troponin I 0.240 ng/ml Test 05/21/17 08:37 05/21/17 09:31 05/21/17 10:31 Bedside Glucose 125 mg/dl 206 mg/dl 215 mg/dl Impression (1) ESRD on peritoneal dialysis (2) Hypotension (3) Near syncope (4) Bradycardia (5) AF (atrial fibrillation) (6) Diabetes mellitus Mr. Caro was admitted following a near syncopal event. Evaluation in ED revealed relative bradycardia w/ frequent PVC's, bigeminy and trigeminy. He has ESRD due to cardiorenal syndrome and is on NCCPD therapy (4 exchanges / night, 2 L fill volume, 1.5% mixed w/ 2.5% Delflex. Fill 10/dwell 100/drain 20) . PMH - ESRD due to diabetic nephropathy, hypertensive nephrosclerosis and advanced ICM. COMMODITIES BROKER started 09/02. Transitioned to NCCPD 01/31. Incarcerated hernia requiring back up IHD 01/04. Patient resumed NCCPD 05/07. HTN, IDDM - on insulin pump (Motorcycle Delivery Driver = Dr. Jean Marie Gray / [facility] [place]) , ASCVD s/p CABG x 2 2005. Chain Saw Mechanic = Dr. Bruce Shepherd, COPD, ROBERT Recommendations END STAGE RENAL DISEASE: -- Will provide NCCPD therapy tonight. Orders entered into EMR and HD RN notified -- Will limit UF tonight by using only 1.5% Delflex exchanges -- EDW has been ~ 175 lbs F/E/N: -- Patient has mild hypokalemia. Will provide supplementation this am CV: -- Consider reducing Carvedilol to 3.125 mg po BID -- Cardiology has been consulted. Await their input
[2017-05-21] MEDS ORDERED: POTASSIUM CHLORIDE 20 MEQ TABCR PO ONE (12:15)
--- NOTE | 2017-05-21 15:02 | Progress Note ---
Progress Note Date of Service May 21, 2017. Progress Note Pt admitted after midnight for near syncopal events and hypotension at home. Since admission, was found to be profoundly hypoglycemic this AM despite hyperglycemia on admission. He recently restarted peritoneal dialysis at home. He has a long standing h/o difficulty with labile glucose and maintains an insulin pump at home. On the day of admission, he was shopping at [employer] and felt his legs get weak and he stopped, felt a bit lightheaded. He went home and checked his glucose which was running in the 400s and he gave himself the prescribed amount of insulin through his pump, then went to eat at [employer] which included a Mellow Yellow drink, cheeseburger, and onion rings. Later glucose was 500s and BP was 80s systolic but a few minutes later came up to 120s/35 but he was concerned and came to the ER. He also reports sometimes he has no symptoms at all with glucose in the 30s, and sometimes feels like it's low when it's in the 200s, but eats cupcake or brownie anyway to bring it up from the 200s. This afternoon, he feels completely back to normal. No problems at all, anxious for discharge tomorrow. Tele with : relative bradycardia w/ frequent PVC's, bigeminy and trigeminy, multifocal PVC runs at most 6 beats consecutive \ NAD, AAOx3, sitting in chair RRR no mgr mild bibasilar crackles, otherwise clear Abd +BS, soft, NT ND, multiple incisional scars, PD catheter on left Ext 1+ pitting edema legs to knee sbilat Skin no rashes This pt is a 56 yo male with DMI on insulin pump, Severe CAD, ischemic chronic combined systolic and diastolic CHF, PAF not on AC, ESRD on HD, incarcerated ventral hernia repair with small bowel resection, and admission for GI bleeding in 01/2017, here with presyncopal episodes and hypotension likely related to restarting peritoneal dialysis, fluid shifts, bradycardia and hyperglycemia 1) Presyncopal episodes and hypotension in relation to restarting peritoneal dialysis,with frequent ectopy, bradycardia and hyperglycemia all could be contributing. Glucose 39 this AM, glucose labile/brittle diabetic -continue telemetry monitoring -Coreg dose reduced to 3.125 mg bid but as per Cardiology he always has NSTEMI when becomes tachycardic due to severe disease--> increase Coreg again if becomes tachy -appreciate Cardiology consultation -received IVFs and now will stop -will make adjustments to insulin pump based on frequent accuchecks here--> Appreciate Pharmacy Glycemic Consultation Can likely dc to home on Monday after further observation for hypotension, bradycardia, and improved glucose management 2) Type 1 DM since age 3, w/ hyperglycemia and hypoglycemia - May use own insulin pump in conjunction with Pharmacy management as above - HgbA1C pending -Consult CDE on Monday 3) ESRD on PD due to cardiorenal syndrome/Hypokalemia - Consult Nephrology, appreciate recommendations- follows w/ Dr. Hyman -K+ replaced 4) Severe CAD s/p CABG/HTN/PAF/history of GA/Chronic combined systolic and diastolic CHF: ECGs with some ischemic changes, typical for him with minimal stress and with tachycardia, trop mildly elevated but stable at 0.2, chronic. Had cardiac cath 01/2017 with severe disease not amenable to stenting - Continue Carvedilol 3.12 mg BID, holding Furosemide currently and can restart when ok with Nephrology -continue ASA, Crestor -presumably not on ACEI due to renal disease - Consult cardiology, appreciate recommendations 5) Restless leg syndrome: Continue Ropinirole 6) Asthma: Continue Albuterol HFA, Advair Diskus, and Montelukast 7) S/p incarcerated hernia repair and partial small bowel resection 12/2016- stable, no issues GI prophylaxis: Protonix DVT prophylaxis: SCDs Code Status: LEVEL I, FULL Dispo- hopefully to home on Monday if stable
[2017-05-21] MEDS ORDERED: NURSING VERBAL MED ORDER ONE (15:30)
[2017-05-21] MEDS ORDERED: ASPIRIN 81 MG ECTAB PO SCH (21:00)
[2017-05-21] MEDS ORDERED: OXYCODONE/ACETAMINOPHEN 5-325 TAB PO SCH (21:00)
[2017-05-21] MEDS ORDERED: SERTRALINE HCL 50 MG TAB PO SCH (21:00)
[2017-05-21] MEDS ORDERED: MONTELUKAST SOD 10 MG TAB PO SCH (21:00)
[2017-05-21] MEDS ORDERED: GABAPENTIN 300 MG CAP PO SCH (21:00)
[2017-05-21] MEDS ORDERED: ROPINIROLE HCL 1 MG TAB PO SCH (21:00)
--- NOTE | 2017-05-21 22:47 | CARDIOLOGY CONSULTATION ---
DATE OF CONSULTATION: 05/21/2017 REFERRING: Dr. Briseno. PRIMARY CARE PHYSICIAN: Dr. Whittaker. PRIMARY PRESS MACHINE FEEDER: Dr. Hyman. HISTORY OF PRESENT ILLNESS: The patient is a 56-year-old male with complex history with clinical history notable for a longstanding ischemic heart disease, diabetic, having undergone prior coronary bypass grafting in 2005, receiving a HDZ graft to the LAD and a saphenous vein graft to left circumflex with poor surgical targets and incomplete revascularization, history of chronic class 2-3 angina pectoris; end-stage renal disease, on replacement therapy; asthmatic lung disease, diabetes mellitus, past episode of atrial fibrillation in association with acute hospitalization. The patient was seen, he was hospitalized last in January of 2017 with anemia, clinical course complicated by concerns regarding acute myocardial ischemia and underwent diagnostic cardiac catheterization with severe multivessel disease discerned. No interventions performed by with patent grafts HDZ graft to the LAD and a saphenous vein graft to the obtuse marginal. The patient presents this admission noting having been restarted on peritoneal dialysis in the past weeks' time and began experiencing episodes of lightheadedness and dizziness and marked hypotension at home. In light of symptoms and complaints, he presented for further evaluation. Symptoms appeared least orthostatic in nature. During hospitalization and an ER visit, he was found to have ventricular ectopy and bigeminy as well as orthostatic hypotension. Medications have been adjusted since admission, specifically oral furosemide was discontinued and rosuvastatin reduced in dosing. He continues to have ventricular ectopy. He has had adjustments made in his dialysate. Currently, he is asymptomatic. Notes no chest pains or discomfort. Notes no associated chest pain with recent symptoms or complaints. ALLERGIES: BEE STINGS AND PENICILLIN. MEDICATIONS PRIOR TO HOSPITALIZATION: Acyclovir 400 b.i.d., albuterol 2 puffs q.a.m., aspirin 81 mg per day, B complex, carvedilol 6.25 mg p.o. b.i.d., furosemide 40 mg b.i.d., Advair Diskus inhaler, Neurontin 300 mg at bedtime, insulin pump, levalbuterol, Singulair 10 mg per day, oxycodone p.r.n., pantoprazole 40 mg q.a.m., MiraLax, Requip 1 mg q.a.m. and 2 mg q.p.m., Crestor 20 grams every day, sertraline 50 mg q.p.m., trazodone p.r.n. sleep. PAST SURGICAL HISTORY: Notable for prior cholecystectomy, incarcerated hernia repair, coronary bypass grafting as described, multiple peritoneal dialysis placements as well as a left arm AV fistula. FAMILY HISTORY: Positive for heart disease. SOCIAL HISTORY: The patient is a nonsmoker, nondrinker. PHYSICAL EXAMINATION: VITAL SIGNS: Heart rate is 58, blood pressure is 124/65, telemetry reveals sinus rhythm with intermittent ventricular ectopy, bigeminy and trigeminy. HEENT: Normocephalic, atraumatic. NECK: There is no jugular venous distention. No carotid bruits. LUNGS: Clear. CARDIOVASCULAR: Regular with occasional audible ectopic beats in a less than grade 1/6 systolic murmur. ABDOMEN: Soft, nontender. There is mild abdominal distention consistent with a history of peritoneal dialysis indwelling peritoneal dialysis catheter. EXTREMITIES: Without cyanosis or clubbing. There is 2+ lower extremity edema with diminished but intact distal pulses. LABORATORY DATA: On presentation, white cell count was 7.1, this morning is 11.5. Sodium is 138, potassium is 3.1, chloride is 102, bicarb is 26. Troponins are chronically elevated at 0.2. IMAGING DATA: EKG reveals sinus rhythm with ventricular ectopic beats bigeminy, old anteroseptal Q-waves. IMPRESSION AND PLAN: A 56-year-old male with complex history of diffuse diabetic coronary artery disease, prior surgical incomplete surgical revascularization in 2005, chronic class 2-3 angina. The patient has had past non-ST and ST elevation myocardial infarction in the setting of acute heart rate elevation with subsequent ischemia. Currently, patient presents with hypotension, likely multifactorial in association with reinitiation of peritoneal dialysis. Telemetry reveals ventricular ectopic beats, no profound bradyarrhythmias with bigeminy. I agree with plans for reduction of carvedilol and will have cautious follow with low threshold for reintroducing higher dose digoxin given past history of ischemia with tachyarrhythmias including sinus tachycardia. Will follow the patient during clinical hospitalization.
[2017-05-22 03:31] VITALS: BP 134/65; PULSE 55; TEMP 36.7; O2SAT 97
[2017-05-22 04:51] LABS: HEMATOCRIT 35.6 % (42-52); MEAN CELL VOLUME 80.7 fL (80-100); MEAN CORPUSCULAR HEMOGLOBIN 27.9 pg (25-34); MEAN CORPUSCULAR HGB CONC 34.6 g/dl (32-36); MEAN PLATELET VOLUME 12.5 fL (7.4-10.4); PLATELET COUNT 160 K/uL (130-400); RED BLOOD COUNT 4.41 M/uL (4.7-6.1); WHITE BLOOD COUNT 7.69 K/uL (4.8-10.8)
[2017-05-22 05:08] LABS: BUN/CREATININE RATIO 18.4 (10-20); CALCIUM 8.3 mg/dl (8.5-10.1); CREATININE 2.9 mg/dl (0.60-1.40); POTASSIUM 3.2 mmol/L (3.5-5.1)
[2017-05-22] MEDS: NovoLOG INSULIN PUMP SCH ×2 (07:00→11:00)
[2017-05-22 08:01] VITALS: BP_SYST 132; BP_SYST 138; BP_SYST 143; BP_DIAS 72; BP_DIAS 74; PULSE 54; PULSE 56; PULSE 58; TEMP 37; O2SAT 98
[2017-05-22 08:22] VITALS: BP 142/64; PULSE 54; TEMP 36.9
[2017-05-22] MEDS: CARVEDILOL 3.125 MG TAB PO SCH (09:00)
[2017-05-22] MEDS ORDERED: POTASSIUM CHLORIDE 20 MEQ TABCR PO ONE ×2 (09:00→09:30)
[2017-05-22] MEDS: FLUTICASONE/SALMETEROL 250/50 (ADVAIR) 14 PUFF/1 INHALER INH SCH (09:45)
[2017-05-22] MEDS: ROSUVASTATIN CALCIUM 20 MG TAB PO SCH (09:47)
[2017-05-22] MEDS: VITAMIN B COMPLEX TAB PO SCH (09:47)
[2017-05-22] MEDS: CEROVITE ADV FORMULA TAB PO SCH (09:47)
[2017-05-22] MEDS: PANTOprazole SOD 40 MG TAB PO SCH (09:47)
[2017-05-22] MEDS: ROPINIROLE HCL 1 MG TAB PO SCH (09:47)
[2017-05-22] MEDS ORDERED: MCRK20 PO (10:13)
[2017-05-22] MEDS ORDERED: CARV3.122 PO (10:13)
--- NOTE | 2017-05-22 10:37 | Nephrology Progress Note ---
Nephrology Progress Note Date of Service May 22, 2017. Chief Complaint ESRD on PD Subjective Mr. Caro was seen & examined in the PCU this morning. He completed NCCPD therapy last night. 1.5 L UF obtained. Effluent is clear. Mr. Caro had his Carvedilol dose reduced yesterday. He denies any further near syncopal events. staff submarine warfare officer has checked blood pressure. No orthostatic changes recorded. Review of Systems Constitutional: No fever Cardiovascular: No chest pain Respiratory: No dyspnea at rest Abdomen: No pain, No nausea, No vomiting Extremities: + leg edema (trace) A complete review of systems was performed. Pertinent positives are noted above. All other systems are negative. Vital Signs Last 8 Hrs Date Time Temp Pulse Resp B/P (MAP) Pulse Ox O2 Delivery O2 Flow Rate FiO2 05/22/17 08:22 36.9 54 16 05/22/17 08:01 37.0 54 16 138/74 (95) 98 Room Air 56 132/72 (92) 58 143/74 (97) 05/22/17 04:00 Room Air 05/22/17 03:31 36.7 55 18 134/65 (88) 97 Room Air I & O 24-Hour Column 05/23/17 08:00 Intake Total 2000 ml Output Total 3590 ml Balance -1590 ml Last Recorded Weight Weight (Kilograms): 86.100 Physical Exam General Appearance: no apparent distress Head: normocephalic, atraumatic Eyes: PERRL, EOMI Neck: no adenopathy Respiratory/Chest: lungs clear, no respiratory distress Cardiovascular: + bradycardia Abdomen/GI: normal bowel sounds, non tender, soft, + pertinent finding (PD exit site without erythema or drainage) Extremities/Musculoskelatal: + pertinent finding (trace pretibial edema) Neurologic/Psych: alert, oriented x 3 Family History Cancer Diabetes mellitus Heart disease Hypertension Negative for CKD / ESRD Social History Smoking Status: Former smoker Smokeless Tobacco Use: Yes Drug Use: none Marital Status: Housing Status: lives with family Occupation: disabled . Medically disabled. Former smoker (quit 2000) Laboratory Results Past 24 Hours 05/22/17 04:40 05/22/17 04:40 Test 05/21/17 10:31 05/21/17 11:31 05/21/17 12:44 05/21/17 13:30 Bedside Glucose 215 mg/dl (70-99) 216 mg/dl (70-99) 295 mg/dl (70-99) 284 mg/dl (70-99) Test 05/21/17 16:29 05/21/17 20:15 05/22/17 02:13 05/22/17 04:40 Bedside Glucose 285 mg/dl (70-99) 223 mg/dl (70-99) 225 mg/dl (70-99) Red Blood Count 4.41 M/uL (4.7-6.1) Mean Corpuscular Volume 80.7 fL (80-100) Mean Corpuscular Hemoglobin 27.9 pg (25-34) Mean Corpuscular Hemoglobin Concent 34.6 g/dl (32-36) RDW Standard Deviation 47.3 fL (36.4-46.3) RDW Coefficient of Variation 16.0 % (11.5-14.5) Mean Platelet Volume 12.5 fL (7.4-10.4) Anion Gap 12.0 mmol/L (3-11) Est Creatinine Clear Calc Drug Dose 27.8 ml/min Estimated GFR () 27.0 Estimated GFR (Non- 23.3 BUN/Creatinine Ratio 18.4 (10-20) Calcium Level 8.3 mg/dl (8.5-10.1) Test 05/22/17 06:54 Bedside Glucose 216 mg/dl (70-99) Allergies Coded Allergies: Penicillins (Verified Allergy, Severe, HIVES, 01/24/17) BEE STING (Verified Allergy, Intermediate, SWELLING, 01/24/17) DOES NOT REQUIRE EPIPEN PER FAMILY Medications Current Inpatient Medications Medications (Trade) Dose Ordered Sig/Shasha Route Start Time Stop Time Status Last Admin Dose Admin Acetaminophen (Tylenol Tab) 650 mg Q4H PRN PO 05/21/17 01:15 06/20/17 01:14 Morphine Sulfate (MoRPHine SULFATE INJ) 2 mg Q30M PRN IV 05/21/17 01:15 06/04/17 01:14 Polyethylene (Miralax Powder Packet) 17 gm DAILY PRN PO 05/21/17 01:15 06/20/17 01:14 Acyclovir (Zovirax Tab) 400 mg BID PRN PO 05/21/17 02:00 05/31/17 01:59 Aspirin (Ecotrin Tab) 81 mg QPM PO 05/21/17 21:00 06/20/17 20:59 05/21/17 22:49 81 MG Salmeterol Xinafoate/ Fluticasone (Advair Diskus 250/50 Inh) 1 puff Q12 INH 05/21/17 09:00 06/20/17 08:59 05/22/17 09:45 1 PUFF Gabapentin (Neurontin Cap) 300 mg HS PO 05/21/17 21:00 06/20/17 20:59 05/21/17 22:49 300 MG Levalbuterol (Xopenex 1.25MG/ 3ML Neb) 1.25 mg Q8H PRN INH 05/21/17 02:00 06/20/17 01:59 Lorazepam (Ativan Tab) 1 mg BID PRN PO 05/21/17 02:00 06/20/17 01:59 Montelukast Sodium (Singulair Tab) 10 mg QPM PO 05/21/17 21:00 06/20/17 20:59 05/21/17 22:49 10 MG Ondansetron HCl (Zofran Tab) 4 mg Q6H PRN PO 05/21/17 02:00 06/20/17 01:59 Oxycodone/ Acetaminophen (Percocet 5-325mg Tab) 1 tab HS PO 05/21/17 21:00 06/04/17 20:59 05/21/17 22:58 1 TAB Pantoprazole Sodium (Protonix Tab) 40 mg QAM PO 05/21/17 09:00 06/20/17 08:59 05/22/17 09:47 40 MG Ropinirole HCl (Requip Tab) 2 mg QPM PO 05/21/17 21:00 06/20/17 20:59 05/21/17 22:48 2 MG Ropinirole HCl (Requip Tab) 1 mg QAM PO 05/21/17 09:00 06/20/17 08:59 05/22/17 09:47 1 MG Rosuvastatin Calcium (Crestor Tab) 20 mg DAILY PO 05/21/17 09:00 06/20/17 08:59 05/22/17 09:47 20 MG Sertraline HCl (Zoloft Tab) 50 mg QPM PO 05/21/17 21:00 06/20/17 20:59 05/21/17 22:49 50 MG Trazodone HCl (Desyrel Tab) 50 mg HS PRN PO 05/21/17 02:00 06/20/17 01:59 Albuterol (Ventolin Hfa Inhaler) 2 puffs QAM PRN INH 05/21/17 03:00 06/20/17 02:59 Vitamin B Complex (Vitamin B Complex) 1 tab DAILY PO 05/21/17 09:00 06/20/17 08:59 05/22/17 09:47 1 TAB Multivitamins/ Minerals (Multivitamin W/ Minerals Tab) 1 tab QAM PO 05/21/17 09:00 06/20/17 08:59 05/22/17 09:47 1 TAB Carvedilol (Coreg Tab) 3.125 mg BID PO 05/21/17 09:00 06/20/17 08:59 05/21/17 22:50 3.125 MG Glucose (Glucose 40% Gel) UD PRN PO 05/21/17 03:00 06/20/17 02:59 Glucose (Glucose Chew Tab) 1 tabs UD PRN PO 05/21/17 03:00 06/20/17 02:59 Dextrose (Dextrose 50% 50ML Syringe) 50 ml UD PRN IV 05/21/17 03:00 06/20/17 02:59 Glucagon (Glucagon Inj) 1 mg UD PRN SQ 05/21/17 03:00 06/20/17 02:59 Miscellaneous Information (Consult Glycemic Management Pharmacy) 1 ea UD PRN N/A 05/21/17 08:11 06/20/17 08:10 Insulin Aspart (novoLOG INSULIN PUMP) 1 ea ACHS N/A 05/21/17 11:00 06/20/17 10:59 05/22/17 07:00 1 EA Insulin Aspart (novoLOG ASPART) FOR PUMP REFILLS PRN PRN SC 05/21/17 09:30 06/20/17 09:29 Insulin Aspart (novoLOG INSULIN PUMP) 1 ea 0000,0400 N/A 05/23/17 00:00 06/22/17 00:00 Impression (1) ESRD on peritoneal dialysis (2) Hypotension (3) Near syncope (4) Bradycardia (5) AF (atrial fibrillation) (6) Diabetes mellitus Mr. Caro was admitted following a near syncopal event. Evaluation in ED revealed relative bradycardia w/ frequent PVC's, bigeminy and trigeminy. He has ESRD due to cardiorenal syndrome and is on NCCPD therapy (4 exchanges / night, 2 L fill volume, 1.5% mixed w/ 2.5% Delflex. Fill 10/dwell 100/drain 20) . PMH - ESRD due to diabetic nephropathy, hypertensive nephrosclerosis and advanced ICM. 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 Transitioned to NCCPD 01/31. Incarcerated hernia requiring back up IHD 01/04. Patient resumed NCCPD 05/07. HTN, IDDM - on insulin pump (Newspaper Managing Editor = Dr. Jean Marie Gray / [place], [place]) , ASCVD s/p CABG x 2 2005. 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 Orders entered into EMR and HD RN notified -- Will resume standard PD regimen using mixture of 1.5% and 2.5% Delflex -- EDW has been ~ 175 lbs F/E/N: -- Patient has mild hypokalemia. Will provide 40 mEq KCl supplementation this am -- Mg is acceptable at 2.4 CV: -- Agree w/ reducing Carvedilol to 3.125 mg po BID -- Await further Cardiology input
--- NOTE | 2017-05-22 10:44 | Discharge Summary ---
Discharge Summary Date of Service May 22, 2017. (Coreen Mercedes PA-C) Discharge Summary Admission Date: May 21, 2017 at 01:08 Discharge Date: May 22, 2017 Discharge Disposition: Home Principal Diagnosis: hypotension, near syncope Problems/Secondary Diagnoses: Hypotension w/ near syncopal event, ?secondary to dialysis PVCs w/ borderline bradycardia ESRD on peritoneal dialysis Hypokalemia Severe CAD s/p CABG HTN PAF h/o LA chronic combined systolic and diastolic CHF IDDM w/ hypo/hyperglycemia- HgbA1C 4.0% Restless leg syndrome Asthma s/p incarcerated hernia repair and partial small bowel resection 12/2016 Immunizations: Have You Had Influenza Vaccine: Yes Influenza Vaccine Date: May 10, 2012 History of Tetanus Vaccine?: Yes Tetanus Immunization Date: May 08, 2006 History of Pneumococcal: Yes Pneumococcal Date: May 10, 2006 History of Hepatitis B Vaccine: Yes Procedures: nephrology cardiology (Coreen Mercedes PA-C) Medication Reconciliation New Medications: Potassium Chloride (Klor-Con M20) 20 Meq Tabcr 20 MEQ PO DAILY for 30 Days, #30 TABS Changed Medications: Carvedilol (Coreg) 3.125 Mg Tab 1 TAB PO BID for 30 Days, #60 TAB 3 Refills (Changed from: Carvedilol (Coreg) 6.25 Mg Tab 6.25 Mg PO BID) Continued Medications: Acyclovir (Acyclovir) 400 Mg Tab 400 MG PO BID PRN for HERPES FLARES Albuterol Sulfate (Proair Respiclick) 108 Mcg/Act Aer 2 PUFFS INH QAM PRN for SOB/Wheezing Aspirin (Aspirin Ec) 81 Mg Tab 81 MG PO QPM B-Complex Vitamins (Vitamin B Complex) 1 Tab Tab 1 CAP PO QAM Fluticasone Prop/Salmeterol (Advair Diskus 250/50 60 Dose) 1 Ea Aerp 1 PUFF INH Q12 Furosemide (Lasix) 40 Mg Tab 40 MG PO BID, TAB Gabapentin (Neurontin) 300 Mg Cap 300 MG PO HS, CAP Glucagon (Glucagon Emergency Kit) 1 Mg Kit 1 DOSE INJ UD PRN for HYPOGLYCEMIA Insulin Aspart (novoLOG INSULIN PUMP ) 1 Ea Inj 1 EA N/A UD, EA Lactulose (Chronulac) 10 Gm/15 Ml Syrp 1 DOSE PO DIRECTED PRN for Constipation Levalbuterol (Levalbuterol HCl) 1.25 Mg/3 Ml Nebu 1 VIAL NEB TID PRN for COPD Lorazepam (Ativan) 1 Mg Tab 0.5-1 MG PO BID PRN for Anxiety Montelukast Sod (Montelukast Sodium) 10 Mg Tab 10 MG PO QPM Multiple Vitamins W/ Minerals (Prorenal Qd) 1 Cap Cap 1 CAP PO QAM Nitroglycerin (Nitrostat) 0.4 Mg Tab 0.4 MG UT UD PRN for Chest Pain PLACE ONE TABLET UNDER THE TONGUE EVERY 5 MINUTES FOR UP TO 3 DOSES IF NEEDED FOR CHEST PAIN. Ondansetron Hcl (Zofran) 4 Mg Tab 4 MG PO Q6H PRN for Nausea, TAB Oxycodone/Acetaminophen 5MG/325MG (Percocet 5MG/325MG) Tab 1 TABLET PO HS Pantoprazole (Pantoprazole Sodium) 40 Mg Tab 40 MG PO QAM Polyethylene Glycol 3350 (Miralax) 1 Pow Pow 17 GM PO DAILY PRN for Constipation, #527 GM Ropinirole (Requip) 1 Mg Tab 2 MG PO QPM, TAB Ropinirole Hydrochloride (Requip) 1 Mg Tab 1 MG PO QAM, TAB Rosuvastatin Calcium (Crestor) 20 Mg Tab 20 MG PO DAILY, TAB Sertraline HCl (Sertraline HCl) 50 Mg Tab 50 MG PO QPM Trazodone Hcl (Trazodone) 50 Mg Tab 50 MG PO HS PRN for Sleep, TAB Discharge Exam Review of Systems: Constitutional: No fever, No chills, No sweats, No weakness, No fatigue ENT: No hearing loss Respiratory: No cough, No shortness of breath, No hemoptysis Cardiovascular: No chest pain, No edema, No palpitations Abdomen: No pain, No nausea, No vomiting, No diarrhea, No constipation Musculoskeletal: No joint pain, No muscle pain, No swelling, No calf pain Neurologic: No weakness, No numbness/tingling, No vertigo, No balance problems Psychiatric: No depression symptoms, No anxiety Endocrine: No fatigue Hematologic / Lymphatic: No abnormal bleeding/bruising Integumentary: No rash, No itch, No new/changing skin lesions Physical Exam: General Appearance: no apparent distress Eyes: PERRL ENT: hearing grossly normal Neck: supple Respiratory/Chest: lungs clear, no respiratory distress, no accessory muscle use Cardiovascular: regular rate, rhythm Abdomen / GI: normal bowel sounds, non tender, soft, + pertinent finding ( indwelling PD catheter) Extremities: no calf tenderness, + swelling (+1 pitting edema to bilateral lower extremities ) Neurologic/Psychiatric: alert, normal mood/affect, oriented x 3 Skin: normal color, warm/dry, no rash (Coreen Mercedes, WILIAM) Hospital Course Admission H&P: 56 y/o M Hx CAD - STEMI 01/24/17, combined CHF, HTN, PAF, ESRD - peritoneal dialysis w/history of peritonitis, recent incarcerated ventral hernia requiring surgical resection, recent GI bleed at surgical anastomosis. Following surgery in January the pt had been placed on hemodialysis and one week ago switched back to peritoneal dialysis. Over the past 1-2 days he has had bouts of symptomatic hypotension. He describes acute lightheadedness and two near-syncopal episodes where he was forced to sit down. During one of these episodes he states that he measured his blood pressure and his systolic pressure was in the mid 80s. After sitting down for a period his blood pressure normalized. He denies any CP , abdominal pain, nausea/vomiting, diarrhea, dysuria or fevers. While on monitor in the ER, frequent PVCs and couplets were noted. He apparently reported discomfort - not pain - related to PVCs per the ER attending, although he denied this at the time of admission. The was admitted to [facility] 01/24/17 with a STEMI - he underwent emergent cath and was then transferred to [facility] for medical management in consideration of recent GI surgery. Cath report indicated severe [place] multivessel coronary artery disease - Occluded mid LAD - Occluded proximal RCA - 80% proximal OM2; 90% distal OM2 stenosis after SVG anastomosis - Patent HDZ to LAD, SVG to OM2 Physical Exam Vital Signs Date Time Temp Pulse Resp B/P (MAP) Pulse Ox O2 Delivery O2 Flow Rate FiO2 05/21/17 00:06 57 18 133/70 97 Room Air 05/20/17 23:18 99 Room Air 05/20/17 23:18 60 18 107/69 99 Room Air 05/20/17 23:07 56 05/20/17 22:48 36.9 58 18 125/68 99 Room Air General Appearance: WD/WN, no apparent distress, + pertinent finding (PLeasant , middle-aged male in no distress) Head: normocephalic Eyes: normal inspection ENT: normal ENT inspection, hearing grossly normal, TMs normal, pharynx normal Neck: supple, no JVD Respiratory/Chest: chest non-tender, lungs clear, normal breath sounds Cardiovascular: regular rate, rhythm, no edema, no gallop Abdomen/GI: normal bowel sounds, non tender, + pertinent finding (Abdomen is soft - fluid present - no tenderness to palpation - no iduration at dialysis site) Back: normal inspection, no CVA tenderness Extremities/Musculoskelatal: normal inspection Neurologic/Psych: 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 (Coreen Mercedes ., PA-C) I agree with PA assessment and plan and have seen and examined pt myself Resting comfortably in bed No concerns noted Elev BS readings last 24 hrs Resumed on insulin pump PD per nephrology Stable for discharge home (Papo, Momo M., D.O.) Discharge Instructions Please refer to the electronic Patient Visit Report (Discharge Instructions) for additional information. (Coreen Mercedes, REBECCAC) Follow-Up Please follow-up with your PCP within 5-7 days Please follow-up/keep all of your subspecialty appointments (Coreen Mercedes, PAEzekielC) Additional Copies To Arielle Whittaker MD
--- NOTE | 2017-05-22 10:45 | Discharge Instructions ---
Discharge Instructions Date of Service May 22, 2017. Admission Reason for Admission: Hypotension, Near Syncope Discharge Discharge Diagnosis / Problem: Hypotension Discharge Goals Goal(s): Decrease discomfort, Improve function, Increase independence, Improve disease control, Learn about illness, Diagnostic testing, Therapeutic intervention, Prevent Disease Progression Activity Recommendations Activity Limitations: resume your previous activity . Instructions / Follow-Up Instructions / Follow-Up You were admitted to [facility] due to lightheadedness, hypotension (low blood pressure), and a near- syncopal event. You were treated with IV fluids and medication adjustments. Your blood pressure was monitored throughout your stay, which did not show anymore hypotension. Your symptoms have resolved. MEDICATION CHANGES: Coreg was CHANGED to Carvedilol 6.25 mg by mouth in the morning and 3.125 mg by mouth in the evening Added Potassium supplement 20 mEq by mouth once daily due to low potassium levels During your stay, your sugars have been high and low. It is recommended your follow-up with your taxonomy teacher. A referral has been placed; if you do not hear of an appointment in the next 24 hours, please call the office to confirm appointment. Resume all other regular home medications as prescribed Please follow-up with your PCP within 5-7 days- A referral has been placed; if you do not hear of an appointment in the next 24 hours, please call the office to confirm appointment. Follow-up with Cardiology as instructed by Dr. Robledo Please follow-up/keep all of your subspecialty appointments Current Hospital Diet Patient's current hospital diet: Diabetes Type 2 Diet, Renal Diet Discharge Diet Recommended Diet: Diabetes Type 2 Diet, Renal Diet Pending Studies Studies pending at discharge: no Laboratory Results Hemoglobin A1c Test 05/21/17 06:27 Range/Units Estimated Average Glucose 68 mg/dl Hemoglobin A1c 4.0 L 4.5-5.6 % Medical Emergencies . Who to Call and When: Medical Emergencies: If at any time you feel your situation is an emergency, please call 911 immediately. . Non-Emergent Contact Non-Emergency issues call your: Primary Care Provider . . "Provider Documentation" section prepared by Coreen Mercedes. . VTE Core Measure Inpt VTE Proph given/why not?: SCD's
--- NOTE | 2017-05-22 11:11 | Cardiology Follow-Up ---
Subjective General Date of Service: May 22, 2017. Chief Complaint: PVC's, bradycardia Pt evaluation today including: conversation w/ patient, physical exam, chart review, lab review, review of studies, review of inpatient medication list History of Present Illness Patient seen and examined. Notes feeling great. He has been ambulatory in his room without difficulty. Denies chest pain, tachypalpitations, or unusual dyspnea. Telemetry: Currently sinus bradycardia at 56 bpm. PVC's in singles as well as bigeminy. One 5 beat run of VT. Allergies Coded Allergies: Penicillins (Verified Allergy, Severe, HIVES, 01/24/17) BEE STING (Verified Allergy, Intermediate, SWELLING, 01/24/17) DOES NOT REQUIRE EPIPEN PER FAMILY Social History Smoking Status: Former Smoker Hx Tobacco Use In Past Year?: Yes Hx Alcohol Use - Type And Amou: No Hx Substance Use - Type And Am: No Problem List Medical Problems: (1) Acute coronary syndrome Status: Acute (2) Acute lower GI bleeding Status: Acute (3) Anemia Status: Acute (4) Bradycardia Status: Acute (5) Chest pressure Status: Acute (6) Diabetes mellitus Status: Acute (7) Dialysis-associated peritonitis Status: Acute (8) Elevated troponin I level Status: Acute (9) Flank pain Status: Acute (10) History of coronary artery disease Status: Acute (11) Hyperglycemia Status: Acute (12) Hyperglycemia Status: Acute (13) Near syncope Status: Acute (14) Peritoneal dialysis catheter in place Status: Acute (15) SBO (small bowel obstruction) Status: Acute (16) STEMI (ST elevation myocardial infarction) Status: Acute (17) Substernal chest pain Status: Acute (18) Symptomatic anemia Status: Acute (19) Ventral hernia Status: Acute Physical Exam Vital Signs Last Vital Signs Documentation Date Time Temp Pulse Resp B/P (MAP) Pulse Ox O2 Delivery O2 Flow Rate FiO2 05/22/17 08:22 36.9 54 16 05/22/17 08:01 138/74 (95) 98 Room Air 132/72 (92) 143/74 (97) Physical Exam Constitutional: Level of Distress: NAD, chronically ill Psychiatric: Mental Status: active & alert Orientation: to time, to place, to person Memory: recent memory normal, remote memory normal Head: normocephalic, atraumatic Lungs: Respiratory effort: no dyspnea Auscultation: no wheezing, no rales/crackles, no rhonchi, deminished air movement, decreased breath sounds Cardiovascular: Heart Auscultation: bradycardia (56 bpm. ) Peripheral Pulses: Dorsalis Pedis Pulse: absent on the left, absent on the right Abdomen: Bowel Sounds: normal Extremities: no cyanosis, no clubbing, edema (1-2+) Neurologic: Cranial Nerves: grossly intact Assessment and Plan Assessment and Plan Markedly complex 56 year old male admitted with multifactorial hypotension, possibly in association with reinitiation of peritoneal dialysis. Carvedilol dosing has been reduced to 3.125 mg twice a day secondary to hypotension as well as mild bradycardia with bigeminy. Will continue the reduced dosing of carvedilol (3.125 mg BID) though note that this may ultimately require uptitration as tachyarrhythmias in the past as incited ischemia. Patient seen and examined. Agree with above. Will change carvedilol to 6.25mg am, 3.125mg pm Albin Robledo MD Laboratory Results Last 24 Hours Test 05/21/17 11:31 05/21/17 12:44 05/21/17 13:30 05/21/17 16:29 Bedside Glucose 216 mg/dl 295 mg/dl 284 mg/dl 285 mg/dl Test 05/21/17 20:15 05/22/17 02:13 05/22/17 04:40 05/22/17 06:54 Bedside Glucose 223 mg/dl 225 mg/dl 216 mg/dl White Blood Count 7.69 K/uL Red Blood Count 4.41 M/uL Hemoglobin 12.3 g/dL Hematocrit 35.6 % Mean Corpuscular Volume 80.7 fL Mean Corpuscular Hemoglobin 27.9 pg Mean Corpuscular Hemoglobin Concent 34.6 g/dl RDW Standard Deviation 47.3 fL RDW Coefficient of Variation 16.0 % Platelet Count 160 K/uL Mean Platelet Volume 12.5 fL Sodium Level 134 mmol/L Potassium Level 3.2 mmol/L Chloride Level 99 mmol/L Carbon Dioxide Level 23 mmol/L Anion Gap 12.0 mmol/L Blood Urea Nitrogen 53 mg/dl Creatinine 2.90 mg/dl Est Creatinine Clear Calc Drug Dose 27.8 ml/min Estimated GFR () 27.0 Estimated GFR (Non- 23.3 BUN/Creatinine Ratio 18.4 Random Glucose 256 mg/dl Calcium Level 8.3 mg/dl
[2017-05-22 11:52] VITALS: BP 142/78; PULSE 55; TEMP 36.5; O2SAT 99
[2017-05-22] MEDS ORDERED: NURSING VERBAL MED ORDER ONE (12:30)
[2017-05-22 13:03] VITALS: Ht 162.6 cm; Wt 86.1 kg
[2017-05-22] MEDS ORDERED: CRG625 PO (13:24)
[2017-05-22] MEDS ORDERED: CRG3125 PO (13:24)
[2017-05-22 13:28] VITALS: BP 142/78; PULSE 55; TEMP 36.5; O2SAT 99
--- NOTE | 2017-05-22 15:23 | Medical Student: [facility] ---
Med Student Progress Note Date of Service May 22, 2017. Subjective Pt evaluation today including: conversation w/ patient, physical exam, chart review, lab review, review of studies, review of inpatient medication list Pain: none PO Intake: normal Voiding: no voiding problems Mr. Caro is the 56 year-old male with complex medical history consisting of type 1 DM, CAD with CABG, COPD, HTN, paroxysmal AF, and ESRD on dialysis presented on 05/20 with lightheadedness and two near-syncope. Today, he states that he feels fine. No dizziness or "odd sensation" when his glucose runs low. No complaints of RODRÍGUEZ, fever, sweat, N/V, SOB, pain, dysuria, or bm abnormal. Review of Systems Constitutional: No fever, No chills Respiratory: No cough, No sputum, No shortness of breath Cardiac: No chest pain Abdomen: No pain, No nausea, No vomiting, No diarrhea, No constipation Male : No dysuria Objective Vital Signs Date Time Temp Pulse Resp B/P (MAP) Pulse Ox O2 Delivery O2 Flow Rate FiO2 05/22/17 11:52 36.5 55 16 142/78 (99) 99 05/22/17 08:22 36.9 54 16 05/22/17 08:01 37.0 54 16 138/74 (95) 98 Room Air 56 132/72 (92) 58 143/74 (97) 05/22/17 08:00 Room Air 05/22/17 04:00 Room Air 05/22/17 03:31 36.7 55 18 134/65 (88) 97 Room Air 05/22/17 00:00 Room Air 05/21/17 23:11 36.7 57 20 140/65 (90) 98 Room Air 05/21/17 20:16 36.6 60 133/63 (86) 05/21/17 20:00 Room Air 05/21/17 16:00 Room Air 05/21/17 15:35 36.7 66 18 145/81 (102) 98 Room Air Physical Exam General Appearance: WD/WN, no apparent distress Eyes: bilateral eyes normal inspection ENT: hearing grossly normal Respiratory/Chest: normal breath sounds, no respiratory distress, + crackles ( mid and lower foley b/l) Cardiovascular: regular rate, rhythm, no murmur Abdomen: non tender, soft, + distended Extremities: no pedal edema Neurologic/Psychiatric: alert, normal mood/affect, oriented x 3 Laboratory Results Last 24 Hours Test 05/21/17 13:30 05/21/17 16:29 05/21/17 20:15 05/22/17 02:13 Bedside Glucose 284 mg/dl 285 mg/dl 223 mg/dl 225 mg/dl Test 05/22/17 04:40 05/22/17 06:54 05/22/17 11:31 White Blood Count 7.69 K/uL Red Blood Count 4.41 M/uL Hemoglobin 12.3 g/dL Hematocrit 35.6 % Mean Corpuscular Volume 80.7 fL Mean Corpuscular Hemoglobin 27.9 pg Mean Corpuscular Hemoglobin Concent 34.6 g/dl RDW Standard Deviation 47.3 fL RDW Coefficient of Variation 16.0 % Platelet Count 160 K/uL Mean Platelet Volume 12.5 fL Sodium Level 134 mmol/L Potassium Level 3.2 mmol/L Chloride Level 99 mmol/L Carbon Dioxide Level 23 mmol/L Anion Gap 12.0 mmol/L Blood Urea Nitrogen 53 mg/dl Creatinine 2.90 mg/dl Est Creatinine Clear Calc Drug Dose 27.8 ml/min Estimated GFR () 27.0 Estimated GFR (Non- 23.3 BUN/Creatinine Ratio 18.4 Random Glucose 256 mg/dl Calcium Level 8.3 mg/dl Bedside Glucose 216 mg/dl 346 mg/dl Medications Current Inpatient Medications Medications (Trade) Dose Ordered Sig/Shasha Route Start Time Stop Time Status Last Admin Dose Admin Acetaminophen (Tylenol Tab) 650 mg Q4H PRN PO 05/21/17 01:15 06/20/17 01:14 Morphine Sulfate (MoRPHine SULFATE INJ) 2 mg Q30M PRN IV 05/21/17 01:15 06/04/17 01:14 Polyethylene (Miralax Powder Packet) 17 gm DAILY PRN PO 05/21/17 01:15 06/20/17 01:14 Acyclovir (Zovirax Tab) 400 mg BID PRN PO 05/21/17 02:00 05/31/17 01:59 Aspirin (Ecotrin Tab) 81 mg QPM PO 05/21/17 21:00 06/20/17 20:59 05/21/17 22:49 81 MG Salmeterol Xinafoate/ Fluticasone (Advair Diskus 250/50 Inh) 1 puff Q12 INH 05/21/17 09:00 06/20/17 08:59 05/22/17 09:45 1 PUFF Gabapentin (Neurontin Cap) 300 mg HS PO 05/21/17 21:00 06/20/17 20:59 05/21/17 22:49 300 MG Levalbuterol (Xopenex 1.25MG/ 3ML Neb) 1.25 mg Q8H PRN INH 05/21/17 02:00 06/20/17 01:59 Lorazepam (Ativan Tab) 1 mg BID PRN PO 05/21/17 02:00 06/20/17 01:59 Montelukast Sodium (Singulair Tab) 10 mg QPM PO 05/21/17 21:00 06/20/17 20:59 05/21/17 22:49 10 MG Ondansetron HCl (Zofran Tab) 4 mg Q6H PRN PO 05/21/17 02:00 06/20/17 01:59 Oxycodone/ Acetaminophen (Percocet 5-325mg Tab) 1 tab HS PO 05/21/17 21:00 06/04/17 20:59 05/21/17 22:58 1 TAB Pantoprazole Sodium (Protonix Tab) 40 mg QAM PO 05/21/17 09:00 06/20/17 08:59 05/22/17 09:47 40 MG Ropinirole HCl (Requip Tab) 2 mg QPM PO 05/21/17 21:00 06/20/17 20:59 05/21/17 22:48 2 MG Ropinirole HCl (Requip Tab) 1 mg QAM PO 05/21/17 09:00 06/20/17 08:59 05/22/17 09:47 1 MG Rosuvastatin Calcium (Crestor Tab) 20 mg DAILY PO 05/21/17 09:00 06/20/17 08:59 05/22/17 09:47 20 MG Sertraline HCl (Zoloft Tab) 50 mg QPM PO 05/21/17 21:00 06/20/17 20:59 05/21/17 22:49 50 MG Trazodone HCl (Desyrel Tab) 50 mg HS PRN PO 05/21/17 02:00 06/20/17 01:59 Albuterol (Ventolin Hfa Inhaler) 2 puffs QAM PRN INH 05/21/17 03:00 06/20/17 02:59 Vitamin B Complex (Vitamin B Complex) 1 tab DAILY PO 05/21/17 09:00 06/20/17 08:59 05/22/17 09:47 1 TAB Multivitamins/ Minerals (Multivitamin W/ Minerals Tab) 1 tab QAM PO 05/21/17 09:00 06/20/17 08:59 05/22/17 09:47 1 TAB Carvedilol (Coreg Tab) 3.125 mg BID PO 05/21/17 09:00 06/20/17 08:59 05/21/17 22:50 3.125 MG Glucose (Glucose 40% Gel) UD PRN PO 05/21/17 03:00 06/20/17 02:59 Glucose (Glucose Chew Tab) 1 tabs UD PRN PO 05/21/17 03:00 06/20/17 02:59 Dextrose (Dextrose 50% 50ML Syringe) 50 ml UD PRN IV 05/21/17 03:00 06/20/17 02:59 Glucagon (Glucagon Inj) 1 mg UD PRN SQ 05/21/17 03:00 06/20/17 02:59 Miscellaneous Information (Consult Glycemic Management Pharmacy) 1 ea UD PRN N/A 05/21/17 08:11 06/20/17 08:10 Insulin Aspart (novoLOG INSULIN PUMP) 1 ea ACHS N/A 05/21/17 11:00 06/20/17 10:59 05/22/17 11:00 1 EA Insulin Aspart (novoLOG ASPART) FOR PUMP REFILLS PRN PRN SC 05/21/17 09:30 06/20/17 09:29 Insulin Aspart (novoLOG INSULIN PUMP) 1 ea 0000,0400 N/A 05/23/17 00:00 06/22/17 00:00 Miscellaneous Information (Nursing Verbal Med Order) 1 ea ONE ONCE N/A 05/22/17 12:30 05/22/17 12:31 UNV Assessment and Plan Assessment and Plan: This is 56 year-old male with complex medical history consisting of type 1 DM, CAD with CABG, COPD, HTN, paroxysmal AF, and ESRD on dialysis presented on 05/20 with lightheadedness and two near-syncope. Presyncope - ddx - endocrinological causes (hypoglycemia), vascular (hypotension , dehydration), cardiac (arrhythmia - AFib, PVCs), RACQU[employer] unlikely. Pt has low glucose 39 upon admission. Today blood glucoses runs in the 200s and up to 346s midday. Per patient, his glucose varies a lot but usually runs between 180-200s. A1C inpatient is 4.0. EKG shows sinus rhythm with PVCs. Pt is bradycardiac throughout his stay ranging 54-57 - Continue Coreg at 3.12mg BID (noted Coreg was reduced from 6.25mg). Street Light Mechanic consulted - agree with reduced dose for now but may need to titrate up as patient becomes tachy with ischemia in the past. - Lasix held. Type 1 diabetes with variable blood glucose level. Blood glucose level ranges from 39-300s. - Diabetic counseling consulted - Continue Lantus and sliding scale - Continue monitor blood glucose. ESRD Cr baseline is in the 3s. Cr today is 2.9 around baseline. Pt is on dialysis. Hbg 12.3. Mild hyponatremia and hypokalemia, possibly from the dialysis - Nephrology consulted. - Electrolytes - observe. Potassium given 10/ 40mEq - Hgb - stable around 12s. No epocrit unless below 10. HTN - As mentioned above, continue coreg at 3.12mg BID for now. CAD/CABG - Continue aspirin, crestor and coreg COPD - controlled, not O2 dependence, no exacerbation - Continue Advair (scheduled), albuterol prn, levalbuterol prn, and montelukast DVT prophylaxis- SCDs Continued [facility] stay due to: other (uncontrolled blood glucose) Discharge planning: other (home after blood glucose is stable.)
[2017-05-22] MEDS ORDERED: CARVEDILOL 3.125 MG TAB PO SCH (21:00)
[2017-05-23] MEDS ORDERED: NovoLOG INSULIN PUMP SCH
[2017-05-23] MEDS ORDERED: CARVEDILOL 6.25 MG TAB PO SCH (09:00)
== END 2017-05-22 14:30 | disposition home or self-care (01) | DRG 312 ==
LOC: C.EDB 22:42 → C.2T 05-21 01:08 → EDBEDREQ 05-21 01:15 → CANRESERV 05-21 01:17 → ENRESERV 05-21 01:17
PROVIDERS: ADMIT Internal Medicine; ATTEND Hospitalist
PROC: 3E1M39Z Irrigation of Peritoneal Cavity using Dialysate, Percutaneous Approach (ICD-10-PCS; principal; 2017-05-21)
DX: I95.3 Hypotension of hemodialysis (principal); N18.6 End stage renal disease; I13.2 Hypertensive heart and chronic kidney disease with heart failure and with stage 5 chronic kidney disease, or end stage renal disease; I50.42 Chronic combined systolic (congestive) and diastolic (congestive) heart failure; R55 Syncope and collapse; I49.3 Ventricular premature depolarization; R00.8 Other abnormalities of heart beat; R00.1 Bradycardia, unspecified; E87.6 Hypokalemia; E11.22 Type 2 diabetes mellitus with diabetic chronic kidney disease; E11.649 Type 2 diabetes mellitus with hypoglycemia without coma; E11.65 Type 2 diabetes mellitus with hyperglycemia; E11.21 Type 2 diabetes mellitus with diabetic nephropathy; I48.0 Paroxysmal atrial fibrillation; J45.909 Unspecified asthma, uncomplicated; I25.5 Ischemic cardiomyopathy; I25.10 Atherosclerotic heart disease of native coronary artery without angina pectoris; G25.81 Restless legs syndrome; G47.33 Obstructive sleep apnea (adult) (pediatric); I25.2 Old myocardial infarction; Z99.2 Dependence on renal dialysis; Z96.41 Presence of insulin pump (external) (internal); Z95.1 Presence of aortocoronary bypass graft; Z72.0 Tobacco use; Z79.82 Long term (current) use of aspirin; Z79.51 Long term (current) use of inhaled steroids; Z79.4 Long term (current) use of insulin; Z79.891 Long term (current) use of opiate analgesic; Z79.899 Other long term (current) drug therapy

== ENCOUNTER 2017-07-01 19:29 | Emergency (ER) | payer OTHER ==
[~2017-07-01] VITALS: Ht 162.6 cm; Wt 83.4 kg
[~2017-07-01 19:29] MED LIST changes: -APR25 PO; -CALC667C4 PO; -CLOP1TAB15 PO; +CRG625 PO; +FRS/40 PO; -FURO-85 PO; +GABA-113 PO; -ISOS120T5 PO; +MCRK20 PO; +PANT40TA2 PO; -PRT/40 PO
[2017-07-01 19:31] VITALS: TEMP 37.3; Ht 162.6 cm; Wt 83.4 kg
[2017-07-01 19:45] VITALS: O2SAT 98
[2017-07-01] MEDS ORDERED: LACTATED RINGER'S 1000ML 1,000 ML IV ONE (20:00)
[2017-07-01 20:21] LABS: BASO % 0.7 %; BASO ABS # 0.05 K/uL (0-0.2); COMPLETE YES; EOS % 3.3 %; HEMATOCRIT 39.5 % (42-52); IG% 0.3 %; LYMPH % 15.5 %; LYMPH ABS # 1.13 K/uL (1.2-3.4); MEAN CELL VOLUME 85.1 fL (80-100); MEAN CORPUSCULAR HEMOGLOBIN 29.5 pg (25-34); MEAN CORPUSCULAR HGB CONC 34.7 g/dl (32-36); MEAN PLATELET VOLUME 13.5 fL (7.4-10.4); MONO % 9.3 %; NEUT % 70.9 %; PLATELET COUNT 184 K/uL (130-400); RED BLOOD COUNT 4.64 M/uL (4.7-6.1); WHITE BLOOD COUNT 7.28 K/uL (4.8-10.8)
--- NOTE | 2017-07-01 20:22 | DIAGNOSTIC IMAGING REPORT ---
CHEST ONE VIEW PORTABLE CLINICAL HISTORY: 56 years-old Male presenting with CHEST PAIN, heart palpitations, shortness of breath. TECHNIQUE: Portable upright AP view of the chest was obtained. COMPARISON: 02/03/2017. FINDINGS: Median sternotomy wires and the associated clips adjacent. External device projects over the left hemithorax. Cardiac silhouette enlarged, stable slightly increased from prior. No significant prominence of pulmonary vasculature. Lungs and pleural spaces clear. Osseous structures normal. Upper abdomen normal. IMPRESSION: 1. Cardiomegaly without convincing evidence of volume overload or pulmonary edema. Electronically signed by: Brent Sierra M.D. 07/01/2017 8:20 PM Dictated Date/Time: 07/01/2017 8:19 PM
[2017-07-01 20:52] LABS: CALCIUM 8.2 mg/dl (8.5-10.1); CREATININE 2.74 mg/dl (0.60-1.40); POTASSIUM 3.8 mmol/L (3.5-5.1)
[2017-07-01 20:53] LABS: BUN/CREATININE RATIO 14.6 (10-20); MAGNESIUM 2.2 mg/dl (1.8-2.4)
--- NOTE | 2017-07-01 21:46 | History and Physical ---
History & Physical Date & Time of Service: Jul 01, 2017 at 21:41 Chief Complaint: Heart Palp,Sob,Has Heart Monitor Primary Care Physician: Arielle Whittaker MD History of Present Illness Source: patient 56 y/o M Hx CAD - STEMI 01/24/17, combined CHF, HTN, PAF, ESRD - peritoneal dialysis w/history of peritonitis, recent incarcerated ventral hernia requiring surgical resection, recent GI bleed at surgical anastomosis. Following surgery in January the pt had been placed on hemodialysis and then switched back to peritoneal dialysis. He is currently undergoing ambulatory monitoring for complaints of heart palpitations and presents this evening with perceived frequent palpitations. He believes this was due to overexertion as he became symptomatic after [place] the football [place] to better observe the game. He denies CP, SOB above baseline, N/V, diaphoresis. His rhythm has been largely regular on monitor in the ER. The pt has a chronic troponin elevation and his initial troponin is elevated above baseline. Recent admission 05/21 was related to intermittent bouts of hypotension was likely owing to a return to peritoneal dialysis from hemodialysis. 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 Cath report indicated severe qagan tayagungin multivessel coronary artery disease - Occluded mid LAD - Occluded proximal RCA - 80% proximal OM2; 90% distal OM2 stenosis after SVG anastomosis - Patent HDZ to LAD, SVG to OM2 Surgical Problems: (1) History of bowel resection (2) History of hernia repair (3) Dialysis graft (4) CABG Family History Cancer Diabetes mellitus Heart disease Hypertension Social History Smoking Status: Never Smoker Drug Use: none Marital Status: Housing status: lives with family Occupational Status: disabled Immunizations History of Influenza Vaccine: Yes Influenza Vaccine Date: May 10, 2012 History of Tetanus Vaccine?: Yes Tetanus Immunization Date: May 08, 2006 History of Pneumococcal: Yes Pneumococcal Date: May 10, 2006 History of Hepatitis B Vaccine: Yes Multi-Drug Resistant Organisms History of MDRO: No Allergies Coded Allergies: Penicillins (Verified Allergy, Severe, HIVES, 01/24/17) BEE STING (Verified Allergy, Intermediate, SWELLING, 01/24/17) DOES NOT REQUIRE EPIPEN PER FAMILY Home Medications Scheduled Aspirin (Aspirin Ec), 81 MG PO QPM Carvedilol (Carvedilol), 6.25 MG PO QAM Carvedilol (Carvedilol), 3.125 MG PO QPM Fluticasone Prop/Salmeterol (Advair Diskus 250/50 60 Dose), 1 PUFF INH Q12 Furosemide (Lasix), 40 MG PO BID Gabapentin (Neurontin), 300 MG PO HS Insulin Aspart (novoLOG INSULIN PUMP ), 1 EA N/A UD Montelukast Sod (Montelukast Sodium), 10 MG PO QPM Multiple Vitamins W/ Minerals (Prorenal Qd), 1 CAP PO QAM Oxycodone/Acetaminophen 5MG/325MG (Percocet 5MG/325MG), 1 TABLET PO HS Pantoprazole (Pantoprazole Sodium), 40 MG PO QAM Ropinirole (Requip), 2 MG PO QPM Ropinirole Hydrochloride (Requip), 1 MG PO QAM Rosuvastatin Calcium (Crestor), 20 MG PO DAILY Sertraline HCl (Sertraline HCl), 50 MG PO QPM Scheduled PRN Acyclovir (Acyclovir), 400 MG PO BID PRN for HERPES FLARES Albuterol Sulfate (Proair Respiclick), 2 PUFFS INH QAM PRN for SOB/Wheezing Glucagon (Glucagon Emergency Kit), 1 DOSE INJ UD PRN for HYPOGLYCEMIA Lactulose (Chronulac), 1 DOSE PO DIRECTED PRN for Constipation Levalbuterol (Levalbuterol HCl), 1 VIAL NEB TID PRN for COPD Lorazepam (Ativan), 0.5-1 MG PO BID PRN for Anxiety Nitroglycerin (Nitrostat), 0.4 MG UT UD PRN for Chest Pain Ondansetron Hcl (Zofran), 4 MG PO Q6H PRN for Nausea Polyethylene Glycol 3350 (Miralax), 17 GM PO DAILY PRN for Constipation Trazodone Hcl (Trazodone), 50 MG PO HS PRN for Sleep Review of Systems Constitutional: No fever, No chills, No sweats Eyes: No worsening of vision ENT: No hearing loss Respiratory: + shortness of breath (chronic exertional ), No cough, No sputum, No wheezing Cardiovascular: + palpitations, No chest pain, No orthopnea, No PND Abdomen: No pain, No nausea, No vomiting Musculoskeletal: No joint pain Genitourinary - Male: No hematuria, No dysuria, No urinary frequency Neurologic: + weakness, No memory loss, No paralysis Psychiatric: No depression symptoms Endocrine: + fatigue Hematologic / Lymphatic: No abnormal bleeding/bruising Integumentary: No rash Allergic / Immunologic: No environmental allergies Physical Exam Vital Signs Date Time Temp Pulse Resp B/P (MAP) Pulse Ox O2 Delivery O2 Flow Rate FiO2 07/01/17 20:14 98 Room Air 07/01/17 20:04 68 07/01/17 19:48 67 18 141/72 98 Room Air 07/01/17 19:45 98 Room Air 07/01/17 19:31 37.3 69 18 132/69 99 Room Air General Appearance: WD/WN, no apparent distress, + pertinent finding (Appears slightly fatigueed - no distress or overt clinical changes from previous evaluations) Head: normocephalic Eyes: normal inspection ENT: normal ENT inspection, pharynx normal Neck: supple, no JVD Respiratory/Chest: chest non-tender, lungs clear Cardiovascular: regular rate, rhythm, no edema, no gallop, + systolic murmur Abdomen/GI: normal bowel sounds, non tender, soft Back: normal inspection, no CVA tenderness Extremities/Musculoskelatal: normal inspection, no calf tenderness, normal capillary refill, no pedal edema, normal range of motion Neurologic/Psych: manager mass II-XII nml as tested, no motor/sensory deficits, alert, normal mood/affect, normal reflexes, oriented x 3 Skin: normal color, warm/dry, no rash Diagnostics Laboratory Results Results Past 24 Hours Test 07/01/17 20:10 Range/Units White Blood Count 7.28 4.8-10.8 K/uL Red Blood Count 4.64 4.7-6.1 M/uL Hemoglobin 13.7 14.0-18.0 g/dL Hematocrit 39.5 42-52 % Mean Corpuscular Volume 85.1 80-100 fL Mean Corpuscular Hemoglobin 29.5 25-34 pg Mean Corpuscular Hemoglobin Concent 34.7 32-36 g/dl Platelet Count 184 130-400 K/uL Mean Platelet Volume 13.5 7.4-10.4 fL Neutrophils (%) (Auto) 70.9 % Lymphocytes (%) (Auto) 15.5 % Monocytes (%) (Auto) 9.3 % Eosinophils (%) (Auto) 3.3 % Basophils (%) (Auto) 0.7 % Neutrophils # (Auto) 5.16 1.4-6.5 K/uL Lymphocytes # (Auto) 1.13 1.2-3.4 K/uL Monocytes # (Auto) 0.68 0.11-0.59 K/uL Eosinophils # (Auto) 0.24 0-0.5 K/uL Basophils # (Auto) 0.05 0-0.2 K/uL RDW Standard Deviation 47.0 36.4-46.3 fL RDW Coefficient of Variation 15.1 11.5-14.5 % Immature Granulocyte % (Auto) 0.3 % Immature Granulocyte # (Auto) 0.02 0.00-0.02 K/uL Sodium Level 137 136-145 mmol/L Potassium Level 3.8 3.5-5.1 mmol/L Chloride Level 101 98-107 mmol/L Carbon Dioxide Level 25 21-32 mmol/L Anion Gap 11.0 3-11 mmol/L Blood Urea Nitrogen 40 7-18 mg/dl Creatinine 2.74 0.60-1.40 mg/dl Est Creatinine Clear Calc Drug Dose 29.7 ml/min Estimated GFR () 28.9 Estimated GFR (Non- 24.9 BUN/Creatinine Ratio 14.6 10-20 Random Glucose 214 70-99 mg/dl Calcium Level 8.2 8.5-10.1 mg/dl Magnesium Level 2.2 1.8-2.4 mg/dl Total Bilirubin 1.0 0.2-1 mg/dl Direct Bilirubin 0-0.2 mg/dl Aspartate Amino Transf (AST/SGOT) 67 15-37 U/L Alanine Aminotransferase (ALT/SGPT) 92 12-78 U/L Alkaline Phosphatase 713 45-117 U/L Troponin I 0.740 0-0.045 ng/ml Total Protein 6.3 6.4-8.2 gm/dl Albumin 2.9 3.4-5.0 gm/dl Lipase 128 73-393 U/L Chemistry Specimen Hemolysis Diagnostic Radiology 1. Cardiomegaly without convincing evidence of volume overload or pulmonary edema. EKG Sinus, PVCs - there are inversions laterally which are present on previous EKGs - ST changes from prev EKGs are less prominent or resolved Impression Assessment and Plan 56 y/o M Hx CAD - STEMI 01/24/17, combined CHF, HTN, PAF, ESRD - peritoneal dialysis w/history of peritonitis, recent incarcerated ventral hernia requiring surgical resection, recent GI bleed at surgical anastomosis. Following surgery in January the pt had been placed on hemodialysis and then switched back to peritoneal dialysis. He is currently undergoing ambulatory monitoring for complaints of heart palpitations and presents this evening with perceived frequent palpitations. He believes this was due to overexertion as he became symptomatic after climbing to the bleachers at the football stadium to better observe the game. He denies CP, SOB above baseline, N/V, diaphoresis. His rhythm has been largely regular on monitor in the ER. The pt has a chronic troponin elevation and his initial troponin is elevated above baseline. Recent admission 05/21 was related to intermittent bouts of hypotension was likely owing to a return to peritoneal dialysis from hemodialysis. 1) Palpitations. This is potentially accompanied by a troponin increase although due to previous values and chronic elevation, it is difficult to define this as acute. He does not display EKG changes or symptoms consistent with ACS. It is possible that he caused a demand mismatch due documented severe , diffuse disease and reported overexertion. Following discussion with his cardiology group, we believe that it is reasonable to obtain a follow-up troponin and if stagnant or improved, the pt can be d/cd to the care of his senior user experience architect. He has been asymptomatic while in the ER and has not displayed any concerning arrhythmias. We would continue his ASA, B claudia and Statin as prescribed. Should his troponin elevate, we would choose to keep him overnight and consider full-dose anticoagulation pending AM eval by his senior user experience architect. 2) CHF - chronic combined - appears well compensated both clinically and per imaging at present. He continues to make urine and remains on Lasix and a B claudia. 3) PAF - sinus rhythm at present - he has had sissues with GI blood loss so is not currently receiving anticoagulation therapy despite a high SUPA. 4) ESRD - electrolyte profile is favorable with his current peritoneal dialysis reg which will be continued. Addendum: repeat troponin has decreased from initial - pt is asymptomatic in ER Please consider the above a consult Total time for this consult including review of labs, meds, imaging, records, EKG - discussion with pt, cardiology, ER attending - 38 min Resuscitation Status FULL RESUSCITATION
[2017-07-02 00:18] VITALS: BP 141/79; PULSE 67; O2SAT 99
--- NOTE | 2017-07-02 01:04 | EMERGENCY ROOM VISIT NOTE ---
ED Visit Note First contact with patient: 19:35 Chief Complaint: It feels like my heart is beating funny. History of Present Illness: Mr. Caro is a 56 year-old white male who ambulates into the ED accompanied by female friend complaining of palpitations. Historically patient reports he has coronary artery disease with 14 MIs and a CABG performed in 2005, acute renal failure and end-stage renal disease. Patient reports since his last admission on May 20 he has been having arrhythmias. He was placed on a Holter monitor Monday, 6 days ago by his real estate firm manager and an echocardiogram is being scheduled. Patient reports he was feeling fine today and went to the local [employer] football game and then out to dinner. He reports when he arrived home at approximately 1830, approximately one hour ago, he started experiencing palpitations and shortness of breath. Since that time his symptoms have been constant. He has not identified any aggravating or alleviating factors related to the palpitations. He reports she's had no associated symptoms of diaphoresis ,, lightheadedness/dizziness, chest pain/discomfort, or nausea/vomiting. He does report while being driven to the ED today he had a transient headache that self resolved. He has not taken any medications for his symptoms prior to arrival at the hospital. Additionally he denies fevers, chills, sweats, upper respiratory tract symptoms , cough, wheezing, previous clots, claudication, cramping, recent surgery/ inactivity/extended travel, orthopnea, dependent edema, abdominal pain, nausea, vomiting, diarrhea, extremity weakness/numbness/tingling, urinary symptoms, hematuria. Review of Systems: As noted above in history of present illness. All body systems were reviewed and found to be negative as noted above. Past Medical History: As previously noted and asthma, hypertension, COPD, diabetes, GI bleed, hepatitis, intermittent atrial fibrillation, sleep apnea, pneumonia, home peritoneal dialysis, hyperparathyroidism, and status post incarcerated ventral hernia repair, bowel resection. Current Medications: Medications Dose Route/Sig Max Daily Dose Days Date Category Dose Instructions Carvedilol 3.125 Mg Tab 3.125 Mg PO QPM 30 05/22/17 Rx Carvedilol 6.25 Mg Tab 6.25 Mg PO QAM 30 05/22/17 Rx Neurontin (Gabapentin) 300 Mg Cap 300 Mg PO HS 05/21/17 Reported Lasix (Furosemide) 40 Mg Tab 40 Mg PO BID 05/21/17 Reported Miralax (Polyethylene Glycol 3350) 1 Pow Pow 17 Gm PO DAILY PRN 02/03/17 Reported Prorenal Qd (Multiple Vitamins W/ Minerals) 1 Cap Cap 1 Cap PO QAM 01/11/17 Reported Crestor (Rosuvastatin Calcium) 20 Mg Tab 20 Mg PO DAILY 01/11/17 Reported Zofran (Ondansetron HCl) 4 Mg Tab 4 Mg PO Q6H PRN 01/11/17 Reported Chronulac (Lactulose) 10 Gm/15 Ml Syrp 1 Dose PO DIRECTED PRN 01/11/17 Reported Trazodone (Trazodone HCl) 50 Mg Tab 50 Mg PO HS PRN 01/11/17 Reported Requip (Ropinirole HCl) 1 Mg Tab 2 Mg PO QPM 01/11/17 Reported Proair Respiclick (Albuterol Sulfate) 108 Mcg/Act Aer 2 Puffs INH QAM PRN 01/11/17 Reported Requip (Ropinirole Hydrochloride) 1 Mg Tab 1 Mg PO QAM 01/11/17 Reported novoLOG INSULIN PUMP (Insulin Aspart) 1 Ea Inj 1 Ea N/A UD 01/11/17 Reported Percocet 5MG/325MG (Oxycodone/Acetaminophen) Tab 1 Tablet PO HS 11/07/14 Reported Aspirin Ec (Aspirin) 81 Mg Tab 81 Mg PO QPM 11/07/14 Reported Nitrostat (Nitroglycerin) 0.4 Mg Tab 0.4 Mg UT UD PRN 09/29/[address] ONE TABLET UNDER THE TONGUE EVERY 5 MINUTES FOR UP TO 3 DOSES IF NEEDED FOR CHEST PAIN. Advair Diskus 250/50 60 Dose (Fluticasone Prop/Salmeterol) 1 Ea Aerp 1 Puff INH Q12 09/29/14 Reported Levalbuterol HCl (Levalbuterol) 1.25 Mg/3 Ml Nebu 1 Vial NEB TID PRN 09/29/14 Reported Pantoprazole Sodium (Pantoprazole) 40 Mg Tab 40 Mg PO QAM 09/29/14 Reported Acyclovir 400 Mg Tab 400 Mg PO BID PRN 09/29/14 Reported Montelukast Sodium (Montelukast Sod) 10 Mg Tab 10 Mg PO QPM 09/29/14 Reported Sertraline HCl 50 Mg Tab 50 Mg PO QPM 09/29/14 Reported Glucagon Emergency Kit (Glucagon) 1 Mg Kit 1 Dose INJ UD PRN 06/10/14 Reported Ativan (Lorazepam) 1 Mg Tab 0.5-1 Mg PO BID PRN 08/24/12 Reported Allergies to Medications: Penicillin. Social History: Physical Examination: Vital Signs: Date Time Temp Pulse Resp B/P (MAP) Pulse Ox O2 Delivery O2 Flow Rate FiO2 07/02/17 00:18 67 18 141/79 99 Room Air 07/01/17 23:30 66 17 127/86 99 Room Air 07/01/17 21:50 64 16 145/78 100 Room Air 07/01/17 20:14 98 Room Air 07/01/17 20:04 68 07/01/17 19:48 67 18 141/72 98 Room Air 07/01/17 19:45 98 Room Air 07/01/17 19:31 37.3 69 18 132/69 99 Room Air GENERAL: 56-year-old male in mild distress due to symptoms, chronically ill- appearing, afebrile and hemodynamically stable. NEUROLOGICAL: Awake, alert and oriented to person, place and time. Answering questions appropriately and following commands. Normal gait. Good hand eye coordination. SKIN: Warm, dry and pink. No soft tissue eruptions or trauma noted. HEENT: Atraumatic and normocephalic. PERRLA. Sclera white and conjunctiva pink. Oral cavity moist and pink. Pharynx is nonerythematous or edematous. Speech normal. No lymphadenopathy. Trachea midline. No jugular venous distention. BACK: No tenderness over the bony spine. No CVA tenderness. THORAX: Lungs sounds are clear to auscultation and equal bilaterally with symmetrical chest wall. No wheezing, rales or rhonchi. No crepitus, tenderness , subcutaneous air or deformities noted. HEART: Regular rate and rhythm. No gallops, rubs or murmurs are appreciated. No lifts, heaves or thrills. PMI is not displaced. ABDOMEN: Flat, soft and nontender. Positive bowel sounds in all quadrants. No guarding, rigidity or organomegaly. EXTREMITIES: Moves all extremities well on command and with purpose. All distal neurovascular statuses are intact and equal bilaterally. No dependent edema or calf tenderness/cords. ED Course: Patient is assessed as noted above. Laboratory Testing: Test 07/01/17 20:10 07/01/17 23:15 Range/Units White Blood Count 7.28 4.8-10.8 K/uL Red Blood Count 4.64 4.7-6.1 M/uL Hemoglobin 13.7 14.0-18.0 g/dL Hematocrit 39.5 42-52 % Mean Corpuscular Volume 85.1 80-100 fL Mean Corpuscular Hemoglobin 29.5 25-34 pg Mean Corpuscular Hemoglobin Concent 34.7 32-36 g/dl Platelet Count 184 130-400 K/uL Mean Platelet Volume 13.5 7.4-10.4 fL Neutrophils (%) (Auto) 70.9 % Lymphocytes (%) (Auto) 15.5 % Monocytes (%) (Auto) 9.3 % Eosinophils (%) (Auto) 3.3 % Basophils (%) (Auto) 0.7 % Neutrophils # (Auto) 5.16 1.4-6.5 K/uL Lymphocytes # (Auto) 1.13 1.2-3.4 K/uL Monocytes # (Auto) 0.68 0.11-0.59 K/uL Eosinophils # (Auto) 0.24 0-0.5 K/uL Basophils # (Auto) 0.05 0-0.2 K/uL RDW Standard Deviation 47.0 36.4-46.3 fL RDW Coefficient of Variation 15.1 11.5-14.5 % Immature Granulocyte % (Auto) 0.3 % Immature Granulocyte # (Auto) 0.02 0.00-0.02 K/uL Sodium Level 137 136-145 mmol/L Potassium Level 3.8 3.5-5.1 mmol/L Chloride Level 101 98-107 mmol/L Carbon Dioxide Level 25 21-32 mmol/L Anion Gap 11.0 3-11 mmol/L Blood Urea Nitrogen 40 7-18 mg/dl Creatinine 2.74 0.60-1.40 mg/dl Est Creatinine Clear Calc Drug Dose 29.7 ml/min Estimated GFR () 28.9 Estimated GFR (Non- 24.9 BUN/Creatinine Ratio 14.6 10-20 Random Glucose 214 70-99 mg/dl Calcium Level 8.2 8.5-10.1 mg/dl Magnesium Level 2.2 1.8-2.4 mg/dl Total Bilirubin 1.0 0.2-1 mg/dl Direct Bilirubin 0-0.2 mg/dl Aspartate Amino Transf (AST/SGOT) 67 15-37 U/L Alanine Aminotransferase (ALT/SGPT) 92 12-78 U/L Alkaline Phosphatase 713 45-117 U/L Troponin I 0.740 0.731 0-0.045 ng/ml Total Protein 6.3 6.4-8.2 gm/dl Albumin 2.9 3.4-5.0 gm/dl Lipase 128 73-393 U/L Chemistry Specimen Hemolysis Chest X-Rays: Were read by myself and the radiologist showing cardiomegaly without evidence of volume overload or pulmonary edema. EKG: Was read by myself and reviewed with Dr. Carter; shows sinus rhythm with an occasional PVC. Ventricular rate 71 bpm. Left atrial enlargement, right axial deviation, anteroseptal infarction noted on previous EKG, ST depression no longer present in the lateral leads and T-wave inversion is less evident in the lateral leads. Patient was hydrated with lactated Ringer's. Patient was reassessed multiple times during his stay in the emergency department. Patient's case was reviewed with Dr. Carter; we agreed on diagnostic approach, treatment, disposition and plan. Patient's case was consulted with case management and referred to the Dr. Briseno , hospitalist for medical observation/admission. Dr. Briseno quested a delta troponin be drawn for comparison prior to admission/ observation; the delta troponin was drawn and he had a decrease in his troponin. Dr. Briseno ported he spoke to the real estate firm manager on-call and it was recommended since his troponin decrease he should follow-up with his primary real estate firm manager this week for reevaluation. Patient was educated about today's findings and instructed on his treatment plan ; he verbalizes understanding and agreement with this plan.. Clinical Impression: Palpitations. Elevated troponin. Decision-Making: Initially my differential diagnosis I considered recurrent atrial fibrillation, V. tach, myocardial ischemia, acute coronary syndrome, pneumothorax and other causes. Disposition: Patient discharged home in stable condition accompanied by his ; prior to departure he was reassessed and subjectively reported that he was pain and symptom-free. Plan: A she was encouraged to continue his current medications as prescribed. Patient is encouraged to rest for the next few days with no strenuous activities. Patient was encouraged to follow-up with personal real estate firm manager earlier this week for further evaluation and care Patient was encouraged return the ED for worsening symptoms, chest pain, vomiting, fevers or any new/concerning symptoms.
== END 2017-07-02 00:28 | disposition home or self-care (01) ==
LOC: C.EDB 19:30 → C.EDC 07-02 00:28
DX: R00.2 Palpitations (principal); R79.89 Other specified abnormal findings of blood chemistry; I50.42 Chronic combined systolic (congestive) and diastolic (congestive) heart failure; I48.0 Paroxysmal atrial fibrillation; N18.6 End stage renal disease; I25.10 Atherosclerotic heart disease of native coronary artery without angina pectoris; I25.2 Old myocardial infarction; J45.909 Unspecified asthma, uncomplicated; J44.9 Chronic obstructive pulmonary disease, unspecified; I13.2 Hypertensive heart and chronic kidney disease with heart failure and with stage 5 chronic kidney disease, or end stage renal disease; E11.22 Type 2 diabetes mellitus with diabetic chronic kidney disease; G25.81 Restless legs syndrome; F32.9 Major depressive disorder, single episode, unspecified; Z87.01 Personal history of pneumonia (recurrent); Z95.1 Presence of aortocoronary bypass graft; Z96.41 Presence of insulin pump (external) (internal); Z99.2 Dependence on renal dialysis; Z90.49 Acquired absence of other specified parts of digestive tract; Z98.890 Other specified postprocedural states; Z83.3 Family history of diabetes mellitus; Z82.49 Family history of ischemic heart disease and other diseases of the circulatory system; Z79.82 Long term (current) use of aspirin; Z79.899 Other long term (current) drug therapy

== ENCOUNTER → 2017-07-04 | Outpatient (CLI) | payer OTHER ==
[~2017-07-04] MED LIST changes: -B-COTAB18 PO; -MCRK20 PO
--- NOTE | 2017-07-05 06:13 | PAP/PSG TECHNICIAN REPORT ---
[facility] Corporate Driver Polysomnogram Report Study name: None Report date: 07/05/2017 Study date: 07/04/2017 Referring Physician: Obdulia Dejesus PA-C, PA-C Name: TOMAS WELSH Interpreting Physician: Francois Salamanca D.O. Date of : 1960 Corporate Driver: Martín Gil RPS. Sex: Male Age: 56 StudyType: PSG CPAP Weight: 173 lbs Height: 56 years, Height 5' 4" BMI: 29.69 Medications: PANTOPRAZOLE SODIUM 40 MG, LORAZEPAM 1 MG, SERTRALINE HCL 50 MG, ADVAIR DISKUS 250-50 MCG, LEVALBUTEROL HCL 1.25 MG, PROAIR HFA 108 90 BASE, OXYCODONE -ACETAMINOPHEN 5-325 MG, ASPIRIN 81 MG, CARVEDILOL 6.25 MG, ROSUVASTATIN CALCIUM 20 MG, GENTAMICIN SULFATE, LACTULOSE 10 , ACYCLOVIR 400 MG, GUAFENESIN AC 100, ROPINIROLE HCL 1 MG, NOVOLIN N 100 UNIT/ML, NOVOLOG 100 UNIT, HUMALOG 100 UNIT/ML, ISOSORBIDE MONONITRATE ER 120 MG, NITROSTAT 0.4 MG, PLAVIX 75 MG, PRORENAL D, SINGULAIR 10 MG, TRAZODONE HCL 50 MG, ZOFRAN 4 MG Patient History PATIENT HAS HISTORY OF A-FIB, ANEMIA, DIABETES, ACOD REFLUX, END STAGE RENAL DISEASE AND OBSTRUCTIVE APNEA. HE HAD SLEEP STUDY DONE IN 2012 AND WAS POSITIVE FOR ROBERT. HE HAS BEEN WEARING 9CWP SINCE THEN. HE IS HERE TODAY FOR AN UPDATE. RM 1 Parameters Monitored NPSG: E1-M2, E2-M1, Fp1-M2, Fp2-M1, F3-M2, F4-M2, F4-M1, C3-M2, C4-M2, C4-M1, O1-M2, O2-M2, O2-M1, T3-M2, T4-M1, P3-M2, P4-M1, CHIN1, CHIN2, HR, EKG, Legs, PFLOW, SNOR, FLOW, CFLOW, Tidal Volume, THOR, ABDO, SpO2, PLTH, CPRESS, ETCO2 Wave, ETCO2, pH Sleep Architecture Sleep Stages Time at Lights Off 10:38:09 PM STAGES Time (min.) TST (%) Time at Lights On 5:40:09 AM Wake 46.5 -- Total Recording Time (TRT) 422.50 min. N1 24.5 7 Total Sleep Period (TSP) 394.5 min. N2 257.5 69 Total Sleep Time (TST) 375.5min. N3 25.0 7 Awake Time 46.5 min. REM 68.5 18 Wake after Sleep Onset 19.0 min. Sleep Efficiency (SE) 89 % Sleep Onset Latency (KAREN) 27.5 min. Number of Stage 1 Shifts None Awakenings 23 Stage Changes 88 Number of REM periods 4 REM 68.5 18 REM Latency 82.0 min. NREM 307.0 82 Body Position Analysis Supine Right Left Side Prone Vertical Total Sleep Time (min.) 72.8 144.4 162.3 306.67 0.0 0.0 Total Sleep Time (%) 18% 38% 43% 82 0% N/A% Total Sleep Time REM (min.) 0.0 63.5 5.0 None 0.0 0.0 Total Sleep Time NREM (min.) 68.8 80.9 157.3 None 0.0 0.0 Intermittent Wake (min.) 4.0 32.0 10.5 None 0.0 0.0 Total Sleep Period (%) 18% None None None None None Arousals Myoclonus (PLM) * Events Count Index Events Count Index Spontaneous 42 7 Events Awake (PLMW) 60 77.4 Respiratory 0 0.0 Events Asleep w/ Arousal (PLMA) 23 3.7 PLM 23 4 Events Asleep w/o Arousal (PLMS) 108 17.3 Snoring 4 1 Total Asleep 131 20.9 Total 69 11 Total 191 27 Respiratory Analysis * CA OA MA CH H RERA Total Count 15 1 0 0 47 0 63 Index 2.4 0.2 0.0 0 7.5 0 10.1 Mean Duration 16.4 20.7 0.0 0.00 19.9 0.0 19.1 Longest Duration 27.2 20.7 0.0 0.00 0.0 0.0 37.9 Respiratory Event Summary Total Supine ~Supine Right Left Prone REM NREM Apneas Count 16 0 16 0 16 N/A 0 16 Index 2.6 0 3 0.0 5.9 N/A 0 3 Hypopneas (4% Desat) Count 47 3 44 14 30 N/A 10 37 Index 7.5 2.6 9 5.8 11.1 N/A 8.8 7.2 Apneas & All Hypopneas Count 63 3 60 14 46 N/A 10 53 Index 10.1 3 12 6 17 N/A 8.8 10.4 Respiratory Events (Management Engineer+All Hyp+RERA) Count 63 3 60 14 46 N/A 10 53 Index 10.1 3 12 5.8 17.0 N/A 8.8 10.4 Respiratory Related Arousal Count 0 3 0 0 0 N/A 0 0 Index 0.0 0 0 0 0 N/A 0 0 Snoring Analysis Supine Right Left Prone REM NREM Total Snore duration 3.9 min Snores count 51 56 35 N/A 43 99 142 Snore mean duration 1.7 Sec Snores index 44 23 13 N/A 37.7 19.3 22.7 TST with snoring (%) 1.0% Desaturation Event Summary: Minimum %SpO2 Event Count Mean/Min/Max Duration(sec.) Desaturation Index % Time In Bed > 90 66 34.2 / 18.0 / 59.3 11.4 97.9 86 - 90 0 N/A 0.0 2.0 81 - 85 0 N/A 0.0 0.1 76 - 80 0 N/A 0.0 0.0 71 - 75 0 N/A 0.0 0.0 66 - 70 0 N/A 0.0 0.0 61 - 65 0 N/A 0.0 0.0 56 - 60 0 N/A 0.0 0.0 51 - 55 0 N/A 0.0 0.0 < 50 0 N/A 0.0 0.0 Total REM NREM Awake <50% 0.0 min. 0.0 min. 0.0 min. 0.0 min. 51 - 60% 0.0 min. 0.0 min. 0.0 min. 0.0 min. 61 - 70% 0.0 min. 0.0 min. 0.0 min. 0.0 min. 71 - 80% 0.0 min. 0.0 min. 0.0 min. 0.0 min. 81 - 90% 7.5 min. 0.7 min. 6.5 min. 0.2 min. 91 - 100% 348.8 min. 59.8 min. 250.8 min. 38.1 min. Average 94 94 94 95 Minimum SpO2 84 86 84 84 Desaturation Event Index 9.4 9.6 10.4 2.6 # Desat. Events below 89% 7 1 6 N/A Time(%) with Saturation below 89% 0.6 0.1 0.4 0.0 Time(min.) with Saturation below 89% 2.0 0.4 1.5 0.1 Time (mins) REM (mins) NREM (mins) % of TST SpO2 Below 90% 24 1 N23 1.0 SpO2 Below 88% 4 0 0 0 Heart Rate Analysis Min (bpm) Max (bpm) Average (bpm) Awake 30 127 50 NREM 30 281 54 REM 30 127 49 Overall 30 281 53 Supplemental O2 Values Minimum O2 level: None Value Start Time End Time Corporate Driver Comments Mr. Welsh slept in the right, left and supine positions. PVC's noted. Leg movements noted. No bruxism noted. CPAP was initiated at +4 CMH2O and up-titrated to an optimal level of +[id number], which nearly eliminated all respiratory events and snoring. A Resmed Mirage Quattro full face size small mask was used during titration Mr. Welsh awoke to use the restroom 0 times during the night. Mr. Welsh stated I slept as well as I do when I am in my own bed. The final report will be interpreted and signed by a sleep physician. The completed physician report will then be placed in the patient medical record. Therapy Event: Therapy (cm H20) 5 7 8 9 10 11 12 Total Time at Pressure (min.) 126.8 128.5 64.1 33.0 30.8 19.0 20.0 TST at Pressure (min.) 95.3 124.5 60.1 27.5 29.3 19.0 20.0 # Periods 1 1 2 2 2 1 1 Sleep Onset (min.) 27.5 0.0 0.0 0.0 0.0 0.0 0.0 REM Onset (min.) 109.5 0.0 0.0 N/A 11.2 0.0 N/A Sleep Efficiency % 75 96 93 83 95 100 100 Wakefulness (%) 24.8 3.1 6.2 16.7 4.9 0.0 0.0 Wakefulness (min.) 31.5 4.0 4.0 5.5 1.5 0.0 0.0 NREM 1 (%) 8.7 3.1 7.6 9.5 3.2 2.6 0.0 NREM 1 (min.) 11.0 4.0 4.9 3.1 1.0 0.5 0.0 NREM 2 (%) 52.9 59.2 69.4 73.8 83.6 0.2 100.0 NREM 2 (min.) 67.0 76.0 44.5 24.3 25.7 0.0 20.0 NREM 3 (%) 0.0 19.5 0.0 0.0 0.0 0.0 0.0 NREM 3 (min.) 0.0 25.0 0.0 0.0 0.0 0.0 0.0 REM (%) 13.6 15.2 16.8 0.0 8.3 97.2 0.0 REM (min.) 17.3 19.5 10.7 0.0 2.6 18.4 0.0 # Arousals 14 10 17 13 5 1 9 Arousal Index 8.8 4.8 17.0 28.4 10.2 3.2 27.0 # Snore 22 42 33 18 18 0 9 Snore Index 13.9 20.2 33.0 39.3 36.9 0.0 27.0 AHI 3.1 2.4 18.0 24.0 43.0 6.3 3.0 AHI Supine 0.0 0.0 8.1 0.0 0.0 0.0 3.0 AHI Non-Supine 3.4 2.8 21.2 26.7 57.9 6.3 N/A NREM AHI 0.8 1.7 20.7 24.0 44.9 0.0 3.0 REM AHI 13.9 6.2 5.6 N/A 23.5 6.5 N/A RDI 3.1 2.4 18.0 24.0 43.0 6.3 3.0 # Obstructive 0 0 1 0 0 0 0 # Central Ap 0 0 3 1 11 0 0 # Mixed 0 0 0 0 0 0 0 # Hypopneas 5 5 14 10 10 2 1 RERAS 0 0 0 0 0 0 0 Total Respiratory Events 5 5 18 11 21 2 1 Time Below SpO2 89.00% (min.) 0.0 0.0 1.6 0.0 0.3 0.0 0.0 Mean NREM SpO2 (%) 95 94 94 94 94 96 94 Mean REM SpO2 (%) 93 94 94 N/A 94 95 N/A Mean Sleep SpO2 (%) 94 94 94 94 94 95 94 Min NREM SpO2 (%) 92 90 84 90 88 95 89 Min REM SpO2 (%) 91 90 86 N/A 91 92 N/A Position Supine (min.) 6.7 16.9 14.9 2.8 7.5 0.1 20.0 Position Non-supine (min.) 88.6 107.6 45.2 24.7 21.7 18.9 0.0 LM Index Sleep 13.9 10.6 38.0 41.5 32.8 3.2 39.1 LM Index NREM 15.4 8.0 41.4 41.5 35.9 0.0 39.1 LM Index REM 6.9 24.6 22.3 N/A 0.0 3.3 N/A Mean Heart Rate (bpm) 49 55 60 52 54 43 54 Min Heart Rate (bpm) 30 30 30 30 30 30 30
== END | disposition home or self-care (01) ==
LOC: C.NEUR 20:00
PROVIDERS: ATTEND Physician Assistant
DX: G47.33 Obstructive sleep apnea (adult) (pediatric) (principal)

== ENCOUNTER 2017-08-09 06:04 | Observation (INO) | payer OTHER ==
[2017-08-09] VITALS (10 sets, daily range): BP systolic 118–147; BP diastolic 70–77; PULSE 55–71; TEMP 36–36.8; O2SAT 95–100; Ht 162.6 cm; Wt 81.4 kg
[~2017-08-09] VITALS: Ht 162.6 cm; Wt 81.4 kg
[~2017-08-09 06:04] MED LIST changes: +CARV6.25 PO; +CLINDAMYCIN 600 MG/54 ML D5W IV SCH; -CRG3125 PO; -CRG625 PO; +SODIUM CHLORIDE 0.9% 1000ML 1,000 ML IV SCH
[2017-08-09] MEDS ORDERED: LIDOCAINE HCL 1% 20 ML VIAL ONE ×2 (07:14→07:24)
[2017-08-09] MEDS ORDERED: BUPIVACAINE 0.5 % 5 MG/1 ML MPF 30ML VIAL ONE ×2 (07:14→07:24)
[2017-08-09] MEDS ORDERED: BACITRACIN 50000 UNIT VIAL ONE (07:15)
[2017-08-09 07:17] LABS: CALCIUM 8.3 mg/dl (8.5-10.1); CREATININE 2.75 mg/dl (0.60-1.40); POTASSIUM 3.2 mmol/L (3.5-5.1)
[2017-08-09] MEDS ORDERED: PROPOFOL IV EMULSION 10 MG/ML 100 ML VIAL IV ONE (07:31)
[2017-08-09] MEDS ORDERED: CLINDAMYCIN 600 MG/54 ML D5W IV ONE (07:55)
--- NOTE | 2017-08-09 07:59 | History & Physical Bridge Note ---
H&P Re-Evaluation Bridge Note: I have examined the patient, reviewed the History & Physical and in the interval since the performance of the History & Physical I have noted the following changes of clinical significance: No changes noted
[2017-08-09] MEDS ORDERED: PHENYLEPHRINE 100MCG/ML 5ML SYR IV PRN (08:15)
[2017-08-09] MEDS ORDERED: ONDANSETRON INJ 2 MG/ML 2 ML VIAL IV PRN (08:15)
[2017-08-09] MEDS ORDERED: EpHEDrine SULFATE INJ 50 MG/ML AMP IV PRN (08:15)
[2017-08-09] MEDS ORDERED: HYDROmorphone INJ 1 MG/ML SYR IV PRN (08:15)
[2017-08-09] MEDS ORDERED: FENTANYL CITRATE INJ 50 MCG/1 ML 2 ML VIAL IV PRN (08:15)
[2017-08-09] MEDS ORDERED: ATROPINE SULFATE 0.1 MG/ML 5ML SYR IV PRN (08:15)
[2017-08-09] MEDS ORDERED: LIDOCAINE HCL 2% 2 ML VIAL (20MG/ML) ONE (08:28)
[2017-08-09] MEDS ORDERED: MIDAZOLAM HCL 1 MG/ML 2ML VIAL ONE (08:28)
[2017-08-09] MEDS ORDERED: FENTANYL CITRATE INJ 50 MCG/1 ML 2 ML VIAL ONE (08:28)
[2017-08-09] MEDS ORDERED: PROPOFOL IV EMULSION 10 MG/ML 20 ML VIAL IV ONE (08:28)
--- NOTE | 2017-08-09 12:58 | [facility] Post Operative Brief Note ---
Immediate Operative Summary Operative Date Aug 09, 2017. Pre-Operative Diagnosis ICM, SB, NSVT Post-Operative Diagnosis same Procedure(s) Performed dual chamber rate responsive ICD implant under fluroscopic guidance, peripheral venogram, unsuccessful BiV ICD Surgeon brenda salcedo Inspector Repairer Surgeon(s) Dr. Luis Enrique Goldstein Estimated Blood Loss 30cc Findings see official report Fluids (cc crystalloids) 250cc Specimens none Drains none Anesthesia 2mg versed, 100mcg fentanyl, 1300mg propofol; 75cc contrast Complication(s) None Disposition PCU
[2017-08-09] MEDS ORDERED: ALBUTEROL HFA 8 GM INHALER INH PRN (13:00)
[2017-08-09] MEDS ORDERED: LEVALBUTEROL 1.25MG/3ML NEB INH PRN (13:00)
[2017-08-09] MEDS ORDERED: NovoLOG INSULIN PUMP SCH (13:00)
[2017-08-09] MEDS ORDERED: ACETAMINOPHEN 325 MG TAB PO PRN (13:00)
[2017-08-09] MEDS ORDERED: ONDANSETRON 4 MG TAB PO PRN (13:00)
[2017-08-09] MEDS ORDERED: NITROGLYCERIN 0.4 MG SL PER TAB CHARGE UT PRN (13:00)
[2017-08-09] MEDS ORDERED: TRAZODONE HCL 50 MG TAB PO PRN (13:00)
[2017-08-09] MEDS ORDERED: POLYETHYLENE (MIRALAX) 17 GM PACK PO PRN (13:00)
[2017-08-09] MEDS ORDERED: NON-FORMULARY MEDICATION (Glucagon (Glucagon Emergency Kit) 1 DOSE) INJ PRN (13:00)
[2017-08-09] MEDS ORDERED: LORAZEPAM 0.5 MG TAB PO PRN (13:00)
--- NOTE | 2017-08-09 13:08 | Discharge Instructions ---
Discharge Instructions Date of Service Aug 09, 2017. Admission Reason for Admission: Paroxysmal A-Fib, Ischemic Cardiomyopathy Discharge Discharge Diagnosis / Problem: ICM, SB Discharge Goals Goal(s): Improve function Activity Recommendations Activity Limitations: as noted below Lifting Limitations: no more than 10 pounds (do not lift the right elbow over the right shoulder for 1 month; do not lift more than 10 pounds with the right arm for 2 weeks) Shower/Bathe: tomorrow Driving or Machine Use: resume 1 day after discharge . Instructions / Follow-Up Instructions / Follow-Up ACTIVITY RECOMMENDATIONS: * Do not raise affected arm over head for 4 weeks. SPECIAL CARE INSTRUCTIONS: * If bleeding occurs, apply direct pressure to area for 5 minutes. * Call your doctor if you have severe pain, fever, drainage or bleeding at site. * Keep dry for 24 hours. * Keep any scheduled doctor's appointment. * Implant Card - hand held device with website information given. SKIN IRRITATION: * You may experience some redness and/or swelling in the area where radiation was administered. If any skin irritation occurs, please contact your family physician. FOLLOW UP VISIT: Keep any scheduled doctor appointments. Current Hospital Diet Patient's current hospital diet: AHA Diet (Heart Healthy), Low Sodium Diet (2gm Na), Diabetes Type 1 Diet, Renal Diet Discharge Diet Recommended Diet: AHA Diet (Heart Healthy), Low Sodium Diet (2gm Na), Diabetes Type 1 Diet, Renal Diet Procedures Procedures Performed: dual chamber rate responsive ICD implant under fluroscopic guidance, peripheral venogram, unsuccessful BiV ICD Pending Studies Studies pending at discharge: no Laboratory Results Hemoglobin A1c Test 05/21/17 06:27 Range/Units Estimated Average Glucose 68 mg/dl Hemoglobin A1c 4.0 L 4.5-5.6 % Medical Emergencies . Who to Call and When: Medical Emergencies: If at any time you feel your situation is an emergency, please call 911 immediately. . Non-Emergent Contact Non-Emergency issues call your: Weed Controller . . "Provider Documentation" section prepared by Piper Almonte. . VTE Core Measure Inpt VTE Proph given/why not?: [place]
--- NOTE | 2017-08-09 13:12 | Discharge Summary ---
Discharge Summary Date of Service Aug 09, 2017. Discharge Summary Admission Date: 08/09/2017 Discharge Date: Aug 10, 2017 Discharge Disposition: Home Principal Diagnosis: ICM Sinus bradycardia Secondary Diagnoses/Problems: NSVT, CAD h/o CABG HDZ-LAD, SVG-OM in 01/2017. Chronic systolic HF, NYHA Class III, ESRD on peritoneal dialysis since 2011, DM on insulin, HLD, COPD Procedures: dual chamber rate responsive ICD under fluoroscopic guidance with peripheral venogram, unsuccessful BiV ICD Medication Reconciliation Continued Medications: Acyclovir (Acyclovir) 400 Mg Tab 400 MG PO BID for HERPES FLARE Albuterol Sulfate (Proair Respiclick) 108 Mcg/Act Aer 2 PUFFS INH QAM PRN for SOB/Wheezing Aspirin (Aspirin Ec) 81 Mg Tab 81 MG PO QPM Carvedilol (Coreg) 6.25 Mg Tab 6.25 MG PO BID, TAB Fluticasone Prop/Salmeterol (Advair Diskus 250/50 60 Dose) 1 Ea Aerp 1 PUFF INH Q12 Furosemide (Lasix) 40 Mg Tab 40 MG PO BID, TAB Gabapentin (Neurontin) 300 Mg Cap 300 MG PO HS, CAP Glucagon (Glucagon Emergency Kit) 1 Mg Kit 1 DOSE INJ UD PRN for HYPOGLYCEMIA Insulin Aspart (novoLOG INSULIN PUMP ) 1 Ea Inj 1 EA N/A UD, EA Lactulose (Chronulac) 10 Gm/15 Ml Syrp 1 DOSE PO DIRECTED PRN for Constipation Levalbuterol (Levalbuterol HCl) 1.25 Mg/3 Ml Nebu 1 VIAL NEB TID PRN for COPD Lorazepam (Ativan) 1 Mg Tab 0.5-1 MG PO BID PRN for Anxiety Montelukast Sod (Montelukast Sodium) 10 Mg Tab 10 MG PO QPM Multiple Vitamins W/ Minerals (Prorenal Qd) 1 Cap Cap 1 CAP PO QAM Nitroglycerin (Nitrostat) 0.4 Mg Tab 0.4 MG UT UD PRN for Chest Pain PLACE ONE TABLET UNDER THE TONGUE EVERY 5 MINUTES FOR UP TO 3 DOSES IF NEEDED FOR CHEST PAIN. Ondansetron Hcl (Zofran) 4 Mg Tab 4 MG PO Q6H PRN for Nausea, TAB Oxycodone/Acetaminophen 5MG/325MG (Percocet 5MG/325MG) Tab 1 TABLET PO HS Pantoprazole (Pantoprazole Sodium) 40 Mg Tab 40 MG PO QAM Polyethylene Glycol 3350 (Miralax) 1 Pow Pow 17 GM PO DAILY PRN for Constipation, #527 GM Ropinirole (Requip) 1 Mg Tab 2 MG PO QPM, TAB Ropinirole Hydrochloride (Requip) 1 Mg Tab 1 MG PO QAM, TAB Rosuvastatin Calcium (Crestor) 20 Mg Tab 20 MG PO HS, TAB Sertraline HCl (Sertraline HCl) 50 Mg Tab 50 MG PO QPM Trazodone Hcl (Trazodone) 50 Mg Tab 50 MG PO HS PRN for Sleep, TAB Admission Information Physical Exam (per Admitting): aaox3, NAD Supple, No JVD Nrl S1/S2, no murmur CTA b/l no w/r/r Soft obese trace edema Left AV fistula No focal deficits skin intact Hospital Course Pt admitted for elective BiV ICD implant; he underwent procedure without any complications however was not able to get into the C/S so patient only got a dual chamber ICD. He was monitored overnight; nephrology was consulted as pt is on peritoneal dialysis. He was discharged home following day in stable condition. Total time spent on discharge = 30 minutes This includes examination of the patient, discharge planning, medication reconciliation, and communication with other providers. Discharge Instructions ACTIVITY RECOMMENDATIONS: * Do not raise affected arm over head for 4 weeks. SPECIAL CARE INSTRUCTIONS: * If bleeding occurs, apply direct pressure to area for 5 minutes. * Call your doctor if you have severe pain, fever, drainage or bleeding at site. * Keep dry for 24 hours. * Keep any scheduled doctor's appointment. * Implant Card - hand held device with website information given. SKIN IRRITATION: * You may experience some redness and/or swelling in the area where radiation was administered. If any skin irritation occurs, please contact your family physician. FOLLOW UP VISIT: Keep any scheduled doctor appointments.
[2017-08-09] MEDS ORDERED: IV FLUIDS COMPLETED PRN (14:00)
[2017-08-09] MEDS: OXYCODONE/ACETAMINOPHEN 5-325 TAB PO PRN (14:19)
--- NOTE | 2017-08-09 14:28 | OPERATIVE REPORT ---
DATE OF OPERATION: 08/09/2017 PREOPERATIVE DIAGNOSES: Ischemic cardiomyopathy, sinus bradycardia, nonsustained ventricular tachycardia, chronic systolic heart failure, [place] Heart Association class 3, idioventricular escape rhythm and a QRS of 124 with a left bundle branch block morphology. POSTOPERATIVE DIAGNOSES: Same. PROCEDURE: Dual chamber rate responsive implantable cardiac defibrillator under fluoroscopic guidance along with peripheral venogram, unsuccessful biventricular implantable cardiac defibrillator. SURGEON: Dr. Piper Almonte. LAWN TECHNICIAN: Dr. Chauncey Goldstein. ANESTHESIA: Monitored anesthetic care given via anesthesiology. Total of 2 mg of Versed, 100 mcg of fentanyl and 1300 mg of propofol. CONTRAST: 75 mL. ANTIBIOTICS: 600 mg of clindamycin. IV FLUIDS: 250 mL. COMPLICATIONS: None. CONDITION: Stable. URINE OUTPUT: Not applicable. SPECIMENS: None. FINDINGS: See below. DRAINS: None. INDICATIONS: This is a 56-year-old gentleman with a past medical history for ischemic cardiomyopathy, ejection fraction 20%, nonsustained VT, coronary artery disease, history of a CABG in 2005, HDZ to LAD and OM, chronic systolic heart failure, [place] Heart Association class 3, sinus bradycardia idioventricular escape rhythm while having an echocardiogram done in our office, diabetes on an insulin pump, hyperlipidemia, COPD and end-stage renal disease on peritoneal dialysis since 2001. Due to his ischemic cardiomyopathy, sinus bradycardia as well as his widening QRS with the left bundle morphology, he was recommended a biventricular implantable cardiac defibrillator. CONSENT: Consent was obtained prior to the patient going into the electrophysiology lab. The patient was explained the risks, benefits, alternatives to procedure, risks include but not limited to sudden cardiac , cardiac arrhythmias, cerebrovascular accident, myocardial infarction, injury to the blood vessels, chamber of the heart, lungs, bleeding and infection. The patient understood these risks and agreed to the procedure as planned. Informed consent was obtained. DESCRIPTION OF THE PROCEDURE: The patient was brought into the electrophysiology lab in a fasting state. He was connected to continuous cardiac monitoring. A timeout was performed to ensure patient's identity and procedure correctly. Prior to draping, we did do a peripheral venogram to ensure that the right side was patent since the patient did have prior dialysis catheters on the right venous system. So, the peripheral venogram using x2 because the first one was kind of sluggish was performed and it showed that it looked like the vein was patent. The patient was then prepped over the right infraclavicular space in normal surgical standard fashion, monitored anesthetic care was given throughout the procedure for patient's comfort level. [place] precautions were maintained throughout the procedure. A 10 mL of 1% lidocaine, bupivacaine mixture were given in the right deltopectoral groove. Incision was made in the right deltopectoral groove. Venous access was obtained through 2 axillary sticks using the peripheral venogram as a guide. The guidewire was inserted without any resistance with one of them to more medial stick and an 8-Libyan sheath was inserted over the guidewire, the dilator was removed and a second guidewire was inserted to allow for retained venous access. The sheath was removed, flushed and dilator reinserted over it and then 9.5-Libyan sheath was then inserted over the more medial guidewire without any resistance. The guidewire and dilator were removed. The right ventricular defibrillator lead was then advanced into the right ventricle and positioned into the right ventricular apex under fluoroscopic guidance. There was adequate pacing and sensing thresholds and no diaphragmatic stimulation with high output pacing. The 9.5-Libyan sheath was peeled away and lead was fixated to the pectoralis muscle using 0 silk sutures. An 8-Libyan sheath was then inserted over the retained guidewire without any resistance. The guidewire and dilator removed. The right atrial pacing lead was then advanced into the right atrium and positioned into the right atrial appendage under fluoroscopic guidance using a preformed J curved of great collar stylette. There was adequate pacing and sensing thresholds, no diaphragmatic stimulation with high output pacing. The 8-Libyan sheath was peeled away and lead was fixated to pectoralis muscle using 0 silk suture. We then set up to the LV lead, a 9.5-Libyan sheath was inserted over the lateral guidewire puncture site into the axillary vein without any resistance. The guidewire and dilator removed. Initially, we tried a 3D curved with [employer] outer sheath with my diagnostic coronary sinus Decapolar EP catheter. I was never able to cannulate the coronary sinus os with the EP catheter, but I did have a sense of where the coronary sinus os was, based on my signals on the EP catheter and it looked like it might be an acute takeoff, so I took out the EP catheter and I tried a matrix 5-Libyan sheath that I placed through the outer sheath along with the guidewire. Of note, the first matrix was more of a 90-degree, we realized was another one that did not have the acute angle on it. There was at one point though that I did get into what looked like the CS out into the branch with the guidewire; however, I never had enough support and everything pulled back when I was trying to advance the outer sheath or the 5-Libyan matrix in. I tried this twice and I got into it twice and then I was never able to again. Dr. Goldstein then came in and scrubbed in to try. He tried with that same set up and then we also tried with a new 5 Libyan matrix set up that was not had much of an acute angle. He then also switched out for a right-sided Suzanne, but he was never able to visualize the coronary sinus or get into it. We then decided that we have tried for an ample amount of time over 2 hours to abort and just do dual. Of note, with trying the LV lead, the atrial lead did dislodge, so after we aborted the LV, I repositioned the right atrial lead. We actually ended up pulling it completely out of vein and went in through the more lateral venous puncture site that we are going to use for the LV. The atrial lead was positioned. It had good numbers. The sheath was peeled away and the lead was fixated to pectoralis muscle using 0 silk suture. A defibrillator pocket was created using blunt dissection over the pectoralis muscle. Pocket was flushed with copious amounts of bacitracin saline wash and inspected for hemostasis. The defibrillator was then attached to the leads making sure that the pins were in appropriate position, passed the set screws and the set screws were all tightened. As the duration of the procedure was long and he is on dialysis, I used an antibiotic Tyrx pouch for the defibrillator and then it was placed in the pocket, making sure that the leads were lying flat beneath the device. The incision was then closed in a 3-layer fashion using a 2-0 Vicryl interrupted suture followed by a 3-0 Vicryl interrupted suture followed by a 4-0 Monocryl running stitch and Dermabond followed by a pressure dressing. EQUIPMENT: 1. The generator was an [employer] [id number], serial #[id number]. 2. Right atrial lead Medtronic 5076-45 cm, serial #[id number]. 3. Right ventricular lead Medtronic 69/35 M55 cm, serial #[id number]. 4. The Tyrx Absorbable Antibacterial Envelope lot #[id number]. INTRAOPERATIVE TESTIN. Right atrial lead: P-wave 3.2 millivolts, impedance 613 ohms, threshold 1.2 volts at 2.4 milliamps 2. Right ventricular lead R-wave 4.3 millivolts, impedance 640 ohms, threshold 0.6 volts at 0.9 milliamps. FINAL MEASUREMENTS THROUGH THE DEVICE: 1. Right atrial lead: P-wave 2.5 millivolts, impedance 513 ohms, threshold 1.25 volts at 0.4 milliseconds. 2. Right ventricular lead: R-wave 5.9 millivolts, impedance 456 ohms, threshold 0.5 volts at 0.4 milliseconds. 3. The RVC coil 60 ohms. FINAL PARAMETERS: MVP-R 60/140. Right ventricular amplitude 3.5 volts, pulse width 0.4 milliseconds, sensitivity 0.3 millivolts. Right ventricular amplitude 3.5 volts, pulse width 0.4 milliseconds, sensitivity 0.9 millivolts. A VT zone at 170 beats per minute for 20 detection intervals and a VF zone at 200 beats per 30/40 detection intervals. IMPRESSION: Successful implantation of a dual chamber rate responsive implantable cardiac defibrillator. Unable to place the left ventricular lead. So, an unsuccessful biventricular defibrillator due to ischemic cardiomyopathy, sinus bradycardia. PLAN: Monitor the patient overnight, 12-lead ECG, chest x-ray. We will consult nephrology as he is on peritoneal dialysis and will need some type of dialysis weather peritoneal or hemodialysis during his stay. Continue his home medications. He is not allowed to lift the right elbow over the right shoulder for 1 month. He cannot lift more than 10 pounds with right arm for 2 weeks. He should leave the pressure dressing on for at least a day he can shower in a day after that and he should follow up in our [facility] office in 7-10 days for device and wound check. I attest to the content of the Intraoperative Record and any orders documented therein. Any exception s are noted below.
[2017-08-09] MEDS ORDERED: GLUCOSE 10 TABS/TUBE PO PRN (14:45)
[2017-08-09] MEDS ORDERED: GLUCAGON FOR INJ 1 MG VIAL SQ PRN (14:45)
[2017-08-09] MEDS ORDERED: GLUCOSE 40% GEL 15 GM TUBE PO PRN (14:45)
[2017-08-09] MEDS ORDERED: DEXTROSE 50% 50 ML SYR IV PRN (14:45)
[2017-08-09] MEDS ORDERED: INSULIN ASPART 100 UNITS/ML VIAL SC PRN (14:45)
--- NOTE | 2017-08-09 14:52 | Anesthesiology Progress Note ---
Anesthesia Post Op Note Date & Time Aug 09, 2017 at 13:00 Awake, doing well, no complaints. VSS. Vital Signs Pain Intensity: 9.0 Vital Signs Past 12 Hours Date Time Temp Pulse Resp B/P (MAP) Pulse Ox O2 Delivery O2 Flow Rate FiO2 08/09/17 14:10 36.5 60 16 135/77 97 Room Air 08/09/17 13:40 59 16 122/67 (85) 98 Room Air 08/09/17 13:20 59 16 140/79 (99) 98 Room Air 08/09/17 13:10 59 16 147/80 (102) 98 Room Air 08/09/17 12:50 59 16 146/71 (96) 98 Room Air 08/09/17 07:08 36.7 55 18 124/70 (88) 100 Room Air Notes Mental Status: alert / awake / arousable, participated in evaluation Pt Amnestic to Procedure: Yes Nausea / Vomiting: adequately controlled Pain: adequately controlled Airway Patency, RR, SpO2: stable & adequate BP & HR: stable & adequate Hydration State: stable & adequate Anesthetic Complications: no major complications apparent
[2017-08-09] MEDS: NovoLOG INSULIN PUMP SCH ×2 (15:56→21:08)
[2017-08-09] MEDS: FUROSEMIDE 40 MG TAB PO SCH (15:57)
--- NOTE | 2017-08-09 17:21 | Nephrology Consultation ---
Nephrology Consultation Date & Providers Date of Consultation: Aug 09, 2017. Primary Care Provider: Arielle Whittaker MD Referring Provider: Reason for Consultation ESRD on PD History of Present Illness Mr. Sly Caro is a 56 year-old male with ESRD. Sly is a patient of Dr. Hyman. Candelario receives dialysis through the [facility] in [place]. He has ESRD due to cardiorenal syndrome and diabetic nephropathy. Dialysis started HD 09/02 and transitioned to NIPD 01/31. Medical history is also notable for hypertension, DM II, atherosclerotic cardiovascular disease and an ischemic cardiomyopathy. Candelario underwent placement of a dual chamber ICD today. He tolerated the procedure well. He was admitted for observation following the procedure. NCCPD to be arranged for overnight. Candelario has a history of peritonitis treated in the past. No recent reported complications with PD. Effluent has been clear. Abdomen is benign. He tolerates dialysis well. Exit site care with topical gentamicin gtt. Past Medical/Surgical History Medical: # ESRD due to cardiorenal syndrome and diabetic nephropathy. Patient started HD 09/02 and transitioned to NIPD 01/31. # HTN # IDDM. Patient has an insulin pump. Traffic Signal Mechanic is Dr. Jean Marie Gray with [facility] in [place], [place]. # ASCVD s/p CABG x2 2005. Patient is not felt to be a candidate for further operative intervention. Echo 09/02 - LVEF 45% w/ diastolic dysfunction, anteroseptal hypokinesis, inferior septum and inferior wall were akinetic. # Paroxysmal atrial fibrillation 06/02 due to low potassium. # COPD # ROBERT # L wrist AVF created 01/[address] Torres # Not a transplant candidate due to inoperable ASCVD Surgical: Triple cuff PD catheter and umbilical hernia repair performed by Dr. Newman on Jan 04 2016 Allergies Coded Allergies: Penicillins (Verified Allergy, Severe, HIVES, 08/09/17) BEE STING (Verified Allergy, Intermediate, SWELLING, 08/09/17) DOES NOT REQUIRE EPIPEN PER FAMILY Inpatient Medications Current Inpatient Medications Medications (Trade) Dose Ordered Sig/Shasha Route Start Time Stop Time Status Last Admin Dose Admin Sodium Chloride 1,000 ml @ 15 mls/hr Q24H IV 08/09/17 06:00 08/10/17 05:59 08/09/17 07:04 15 MLS/HR Oxycodone/ Acetaminophen (Percocet 5-325mg Tab) 1 tab for pain scale 4-6 2 t... Q6H PRN PO 08/09/17 13:00 08/23/17 12:59 08/09/17 14:19 2 TAB Acetaminophen (Tylenol Tab) 650 mg Q4H PRN PO 08/09/17 13:00 09/08/17 12:59 Aspirin (Ecotrin Tab) 81 mg QPM PO 08/09/17 21:00 09/08/17 20:59 Carvedilol (Coreg Tab) 6.25 mg BID PO 08/09/17 21:00 09/08/17 20:59 Salmeterol Xinafoate/ Fluticasone (Advair Diskus 250/50 Inh) 1 puff Q12 INH 08/09/17 21:00 09/08/17 20:59 Furosemide (Lasix Tab) 40 mg BID17 PO 08/09/17 17:00 09/08/17 16:59 08/09/17 15:57 40 MG Gabapentin (Neurontin Cap) 300 mg HS PO 08/09/17 21:00 09/08/17 20:59 Levalbuterol (Xopenex 1.25MG/ 3ML Neb) 1.25 mg TIDR PRN INH 08/09/17 13:00 09/08/17 12:59 Lorazepam (Ativan Tab) 0.5 mg BID PRN PO 08/09/17 13:00 09/08/17 12:59 Montelukast Sodium (Singulair Tab) 10 mg QPM PO 08/09/17 21:00 09/08/17 20:59 Nitroglycerin (Nitrostat Tab) 0.4 mg UD PRN UT 08/09/17 13:00 09/08/17 12:59 Ondansetron HCl (Zofran Tab) 4 mg Q6H PRN PO 08/09/17 13:00 09/08/17 12:59 Oxycodone/ Acetaminophen (Percocet 5-325mg Tab) 1 tab HS PO 08/09/17 21:00 08/23/17 20:59 Pantoprazole Sodium (Protonix Tab) 40 mg QAM PO 08/10/17 09:00 09/09/17 08:59 Ropinirole HCl (Requip Tab) 2 mg QPM PO 08/09/17 21:00 09/08/17 20:59 Ropinirole HCl (Requip Tab) 1 mg QAM PO 08/10/17 09:00 09/09/17 08:59 Rosuvastatin Calcium (Crestor Tab) 20 mg HS PO 08/09/17 21:00 09/08/17 20:59 Sertraline HCl (Zoloft Tab) 50 mg QPM PO 08/09/17 21:00 09/08/17 20:59 Trazodone HCl (Desyrel Tab) 50 mg HS PRN PO 08/09/17 13:00 09/08/17 12:59 Albuterol (Ventolin Hfa Inhaler) 2 puffs QAM PRN INH 08/09/17 13:00 09/08/17 12:59 Miscellaneous Information (Order Awaiting Action) 1 ea QAM PO 08/10/17 09:00 09/09/17 08:59 Polyethylene (Miralax Powder Packet) 17 gm DAILY PRN PO 08/09/17 13:00 09/08/17 12:59 Miscellaneous (Iv Fluids Completed) 1 ea PRN PRN N/A 08/09/17 14:00 08/09/18 13:59 Insulin Aspart (novoLOG INSULIN PUMP) 1 ea ACHS N/A 08/09/17 16:15 09/08/17 16:14 08/09/17 15:56 1 EA Insulin Aspart (novoLOG ASPART) SLIDING SCALE PRN PRN SC 08/09/17 14:45 09/08/17 14:44 Glucose (Glucose 40% Gel) UD PRN PO 08/09/17 14:45 09/08/17 14:44 Glucose (Glucose Chew Tab) 1 tabs UD PRN PO 08/09/17 14:45 09/08/17 14:44 Glucagon (Glucagon Inj) 1 mg UD PRN SQ 08/09/17 14:45 09/08/17 14:44 Dextrose (Dextrose 50% 50ML Syringe) 50 ml UD PRN IV 08/09/17 14:45 09/08/17 14:44 Family History Cancer Diabetes mellitus Heart disease Hypertension Social History Smoking Status: Former Smoker Drug Use: none Marital Status: Housing Status: lives with family Occupation: disabled Review of Systems A complete review of systems was performed. Pertinent positives are noted above. All other systems are negative. Physical Exam Date Time Temp Pulse Resp B/P (MAP) Pulse Ox O2 Delivery O2 Flow Rate FiO2 08/09/17 16:00 96 Room Air 08/09/17 15:28 36.0 61 18 124/74 (91) 96 08/09/17 14:10 36.5 60 16 135/77 97 Room Air 08/09/17 13:52 36.5 60 135/77 (96) 97 08/09/17 13:40 59 16 122/67 (85) 98 Room Air 08/09/17 13:20 59 16 140/79 (99) 98 Room Air 08/09/17 13:10 59 16 147/80 (102) 98 Room Air 08/09/17 12:50 59 16 146/71 (96) 98 Room Air 08/09/17 07:08 36.7 55 18 124/70 (88) 100 Room Air General Appearance: WD/WN, no apparent distress Head: normocephalic, atraumatic Eyes: normal inspection, sclerae normal ENT: normal ENT inspection, pharynx normal Neck: supple, no JVD Respiratory/Chest: lungs clear, no respiratory distress, no accessory muscle use Cardiovascular: regular rate, rhythm, no gallop, no murmur Abdomen/GI: non tender, soft, + pertinent finding (PD catheter with clean exit site) Extremities/Musculoskelatal: normal inspection, no pedal edema Neurologic/Psych: alert, normal mood/affect Skin: normal color Laboratory Results Last 24 Hours Test 08/09/17 06:40 08/09/17 06:47 08/09/17 13:11 08/09/17 13:20 Bedside Glucose 206 mg/dl 37 mg/dl 167 mg/dl Sodium Level 136 mmol/L Potassium Level 3.2 mmol/L Chloride Level 103 mmol/L Carbon Dioxide Level 28 mmol/L Anion Gap 5.0 mmol/L Blood Urea Nitrogen 27 mg/dl Creatinine 2.75 mg/dl Est Creatinine Clear Calc Drug Dose 28.9 ml/min Estimated GFR () 28.8 Estimated GFR (Non- 24.8 BUN/Creatinine Ratio 10.0 Random Glucose 236 mg/dl Calcium Level 8.3 mg/dl Test 08/09/17 16:51 Bedside Glucose 213 mg/dl Impression (1) End stage renal failure on dialysis (2) Peritoneal dialysis status (3) Ischemic cardiomyopathy Mr. Caro was admitted following ICD placement. He has ESRD due to cardiorenal syndrome and is on NCCPD therapy (4 exchanges / night, 2 L fill volume, 1.5% mixed w/ 2.5% Delflex. Fill 10/dwell 100/drain 20). PMH - ESRD due to diabetic nephropathy, hypertensive nephrosclerosis and advanced ICM. SPEECH PATHOLOGIST started 09/02. Transitioned to NCCPD 01/31. Incarcerated hernia requiring back up IHD 01/04. Patient resumed NCCPD 05/07. HTN, IDDM - on insulin pump (Traffic Signal Mechanic = Dr. Jean Marie Gray / [place], [place]) , ASCVD s/p CABG x 2 2005. Steel Molder = Dr. Bruce Shepherd, COPD, ROBERT Recommendations END STAGE RENAL DISEASE: -- Will provide NCCPD therapy tonight. Orders entered into EMR and HD RN notified -- UF with 2.5% Delflex exchanges -- EDW has been ~ 175 lbs -- BP and volume status are appropriate -- Metabolic profile reviewed -- Medications appropriate
[2017-08-09] MEDS ORDERED: ROPINIROLE HCL 1 MG TAB PO SCH (21:00)
[2017-08-09] MEDS ORDERED: OXYCODONE/ACETAMINOPHEN 5-325 TAB PO SCH (21:00)
[2017-08-09] MEDS ORDERED: MONTELUKAST SOD 10 MG TAB PO SCH (21:00)
[2017-08-09] MEDS ORDERED: ASPIRIN 81 MG ECTAB PO SCH (21:00)
[2017-08-09] MEDS ORDERED: SERTRALINE HCL 50 MG TAB PO SCH (21:00)
[2017-08-09] MEDS ORDERED: ROSUVASTATIN CALCIUM 20 MG TAB PO SCH (21:00)
[2017-08-09] MEDS ORDERED: GABAPENTIN 300 MG CAP PO SCH (21:00)
[2017-08-09] MEDS: FLUTICASONE/SALMETEROL 250/50 (ADVAIR) 14 PUFF/1 INHALER INH SCH (21:09)
[2017-08-09] MEDS: CARVEDILOL 6.25 MG TAB PO SCH (21:10)
[2017-08-10] MEDS: OXYCODONE/ACETAMINOPHEN 5-325 TAB PO PRN (00:55)
[2017-08-10 04:00] VITALS: O2SAT 97
[2017-08-10 04:04] VITALS: BP 125/75; PULSE 60; TEMP 36.9; O2SAT 97
--- NOTE | 2017-08-10 06:56 | DIAGNOSTIC IMAGING REPORT ---
CHEST 2 VIEWS ROUTINE HISTORY: 56 years-old Male EXACT TIME ORDERED Evaluate for pneumothorax and lead placement status post placement of a right pectoral pacer COMPARISON: Chest radiograph 07/01/2017 TECHNIQUE: PA and lateral views of the chest FINDINGS: Cardiac silhouette is mildly enlarged, unchanged. Prior median sternotomy with surgical clips projecting over the left mediastinum. Status post placement of a right subclavian pacer/AICD with leads overlying the right atrium and right ventricle. The leads appear intact. No postprocedural pneumothorax identified. Mild blunting of the right costophrenic angle suggests atelectasis or trace effusion. Lung foley are otherwise generally clear. The bones appear grossly intact. Degenerative changes of the shoulders and spine. Cholecystectomy clips. Multilevel anterior endplate wedging of the spine. IMPRESSION: Status post placement of a right subclavian pacer/AICD with leads overlying the right atrium and right ventricle. No postprocedural pneumothorax identified. The above report was generated using voice recognition software. It may contain grammatical, syntax or spelling errors. Electronically signed by: Samir Landin M.D. 08/10/2017 6:54 AM Dictated Date/Time: 08/10/2017 6:52 AM
[2017-08-10] MEDS: NovoLOG INSULIN PUMP SCH (07:36)
[2017-08-10 07:55] VITALS: BP 147/83; PULSE 60; TEMP 36.6; O2SAT 98
[2017-08-10 08:00] VITALS: BP 147/83; PULSE 60; TEMP 36.6
--- NOTE | 2017-08-10 08:15 | Cardiology Follow-Up ---
Subjective Subjective Date of Service: Aug 10, 2017. Pt evaluation today including: conversation w/ patient, physical exam, lab review, review of studies Pain: minimal at incision site Problem List Medical Problems: (1) Acute coronary syndrome Status: Acute (2) Acute lower GI bleeding Status: Acute (3) Anemia Status: Acute (4) Bradycardia Status: Acute (5) Chest pressure Status: Acute (6) Diabetes mellitus Status: Acute (7) Dialysis-associated peritonitis Status: Acute (8) Elevated troponin I level Status: Acute (9) Flank pain Status: Acute (10) History of coronary artery disease Status: Acute (11) Hyperglycemia Status: Acute (12) Hyperglycemia Status: Acute (13) Near syncope Status: Acute (14) Palpitations Status: Acute (15) Peritoneal dialysis catheter in place Status: Acute (16) SBO (small bowel obstruction) Status: Acute (17) STEMI (ST elevation myocardial infarction) Status: Acute (18) Substernal chest pain Status: Acute (19) Symptomatic anemia Status: Acute (20) Ventral hernia Status: Acute Review of Systems Constitutional: No fatigue Respiratory: No shortness of breath, No dyspnea on exertion Cardiac: No chest pain, No edema, No palpitations Abdomen: No nausea, No vomiting Endo: No fatigue Objective Vital Signs Last Vital Signs Documentation Date Time Temp Pulse Resp B/P (MAP) Pulse Ox O2 Delivery O2 Flow Rate FiO2 08/10/17 07:55 36.6 60 16 147/83 (104) 98 Room Air Physical Exam: General Appearance: WD/WN, no apparent distress Eyes: bilateral eyes PERRL, bilateral eyes EOMI Respiratory/Chest: normal breath sounds, no respiratory distress, + crackles Cardiovascular: regular rate, rhythm, no murmur Abdomen: non tender, soft Extremities: no pedal edema Neurologic/Psychiatric: alert, normal mood/affect, oriented x 3 Skin: normal color (right pectoral incision site-no hematoma; mild ecchymosis; incision intact), warm/dry, no rash Assessment and Plan Impression: 1. ICM EF 20% s/p dual chamber ICD 08/09/2017 (unsuccessful BIV ICD) 2. SB 3. NSVT 4. CAD h/o CABG HDZ-LAD, SVG-OM in 01/2017 5. Chronic systolic HF, NYHA Class III 6. ESRD on peritoneal dialysis since 2011 7. DM on insulin 8. HLD 9.COPD Plan: -Ok for discharge home today -Continue home medications -Tylenol for pain -Can shower today -Do not lift the right elbow over the right shoulder for 1 month -Wound check next week Discharge planning: home Medications: Medications Administered Medications (Trade) Dose Ordered Sig/Shasha Route Start Time Stop Time Status Last Admin Dose Admin Sodium Chloride 1,000 ml @ 15 mls/hr Q24H IV 08/09/17 06:00 08/10/17 05:59 DC 08/09/17 07:04 15 MLS/HR Clindamycin Phosphate (Cleocin 600mg/ 54ml D5W) 600 mg STK-MED ONCE IV 08/09/17 07:55 08/09/17 07:56 DC 08/09/17 08:05 600 MG Oxycodone/ Acetaminophen (Percocet 5-325mg Tab) 1 tab for pain scale 4-6 2 t... Q6H PRN PO 08/09/17 13:00 08/23/17 12:59 08/10/17 00:55 2 TAB Acetaminophen (Tylenol Tab) 650 mg Q4H PRN PO 08/09/17 13:00 09/08/17 12:59 08/09/17 18:34 650 MG Aspirin (Ecotrin Tab) 81 mg QPM PO 08/09/17 21:00 09/08/17 20:59 08/09/17 21:11 81 MG Carvedilol (Coreg Tab) 6.25 mg BID PO 08/09/17 21:00 09/08/17 20:59 08/09/17 21:10 6.25 MG Salmeterol Xinafoate/ Fluticasone (Advair Diskus 250/50 Inh) 1 puff Q12 INH 08/09/17 21:00 09/08/17 20:59 08/09/17 21:09 1 PUFF Furosemide (Lasix Tab) 40 mg BID17 PO 08/09/17 17:00 09/08/17 16:59 08/09/17 15:57 40 MG Gabapentin (Neurontin Cap) 300 mg HS PO 08/09/17 21:00 09/08/17 20:59 08/09/17 21:11 300 MG Montelukast Sodium (Singulair Tab) 10 mg QPM PO 08/09/17 21:00 09/08/17 20:59 12/20/17 21:10 10 MG Oxycodone/ Acetaminophen (Percocet 5-325mg Tab) 1 tab HS PO 08/09/17 21:00 08/23/17 20:59 08/09/17 21:09 1 TAB Ropinirole HCl (Requip Tab) 2 mg QPM PO 08/09/17 21:00 09/08/17 20:59 08/09/17 21:11 2 MG Rosuvastatin Calcium (Crestor Tab) 20 mg HS PO 08/09/17 21:00 09/08/17 20:59 08/09/17 21:11 20 MG Sertraline HCl (Zoloft Tab) 50 mg QPM PO 08/09/17 21:00 09/08/17 20:59 08/09/17 21:11 50 MG Insulin Aspart (novoLOG INSULIN PUMP) 1 ea ACHS N/A 08/09/17 16:15 09/08/17 16:14 08/10/17 07:36 1 EA Lab Results: Telemetry: AP-VS ECG: SR 1st degree LBBB CXR: No PTX Leads in position Last 24 Hours Test 08/09/17 13:11 08/09/17 13:20 08/09/17 16:51 08/09/17 20:28 Bedside Glucose 37 mg/dl 167 mg/dl 213 mg/dl 222 mg/dl
[2017-08-10] MEDS: CARVEDILOL 6.25 MG TAB PO SCH (08:31)
[2017-08-10] MEDS: FLUTICASONE/SALMETEROL 250/50 (ADVAIR) 14 PUFF/1 INHALER INH SCH (08:31)
[2017-08-10] MEDS: FUROSEMIDE 40 MG TAB PO SCH (08:32)
--- NOTE | 2017-08-10 08:36 | Dialysis Progress Note ---
Peritoneal Dialysis Note Date of Service Aug 10, 2017. Chief Complaint ESRD on PD Subjective Tolerated NCCPD without complications. Effluent clear. Abdomen benign. Exit site clean and without drainage. Net UF 700 ml. Candelario reports mild tenderness around surgical site but overall he feels well. Expected discharge home today. Review of Systems A complete review of systems was performed. Pertinent positives are noted above. All other systems are negative. Vital Signs Last 8 Hrs Date Time Temp Pulse Resp B/P (MAP) Pulse Ox O2 Delivery O2 Flow Rate FiO2 08/10/17 07:55 36.6 60 16 147/83 (104) 98 Room Air 08/10/17 04:04 36.9 60 18 125/75 (92) 97 Room Air 08/10/17 04:00 97 Room Air Last Recorded Weight Weight (Kilograms): 81.400 Physical Exam General Appearance: WD/WN, no apparent distress Head: normocephalic, atraumatic Eyes: normal inspection, sclerae normal ENT: normal ENT inspection, pharynx normal Neck: supple, no JVD Respiratory/Chest: lungs clear, no respiratory distress, no accessory muscle use, + pertinent finding (incision cdi) Cardiovascular: regular rate, rhythm, no gallop Abdomen/GI: non tender, soft, + distended, + pertinent finding (exit site clean and without erythema or drainage) Extremities/Musculoskelatal: normal inspection, no pedal edema Neurologic/Psych: alert, oriented x 3 Social History Smoking Status: Former smoker Drug Use: none Marital Status: Housing Status: lives with family Occupation: disabled Laboratory Results Past 24 Hours Test 08/09/17 13:11 08/09/17 13:20 08/09/17 16:51 08/09/17 20:28 Bedside Glucose 37 mg/dl (70-99) 167 mg/dl (70-99) 213 mg/dl (70-99) 222 mg/dl (70-99) Test 08/10/17 07:04 Bedside Glucose 276 mg/dl (70-99) Allergies Coded Allergies: Penicillins (Verified Allergy, Severe, HIVES, 08/09/17) BEE STING (Verified Allergy, Intermediate, SWELLING, 08/09/17) DOES NOT REQUIRE EPIPEN PER FAMILY Medications Current Inpatient Medications Medications (Trade) Dose Ordered Sig/Shasha Route Start Time Stop Time Status Last Admin Dose Admin Oxycodone/ Acetaminophen (Percocet 5-325mg Tab) 1 tab for pain scale 4-6 2 t... Q6H PRN PO 08/09/17 13:00 08/23/17 12:59 08/10/17 00:55 2 TAB Acetaminophen (Tylenol Tab) 650 mg Q4H PRN PO 08/09/17 13:00 09/08/17 12:59 08/09/17 18:34 650 MG Aspirin (Ecotrin Tab) 81 mg QPM PO 08/09/17 21:00 09/08/17 20:59 08/09/17 21:11 81 MG Carvedilol (Coreg Tab) 6.25 mg BID PO 08/09/17 21:00 09/08/17 20:59 08/09/17 21:10 6.25 MG Salmeterol Xinafoate/ Fluticasone (Advair Diskus 250/50 Inh) 1 puff Q12 INH 08/09/17 21:00 09/08/17 20:59 08/09/17 21:09 1 PUFF Furosemide (Lasix Tab) 40 mg BID17 PO 08/09/17 17:00 09/08/17 16:59 08/09/17 15:57 40 MG Gabapentin (Neurontin Cap) 300 mg HS PO 08/09/17 21:00 09/08/17 20:59 08/09/17 21:11 300 MG Levalbuterol (Xopenex 1.25MG/ 3ML Neb) 1.25 mg TIDR PRN INH 08/09/17 13:00 09/08/17 12:59 Lorazepam (Ativan Tab) 0.5 mg BID PRN PO 08/09/17 13:00 09/08/17 12:59 Montelukast Sodium (Singulair Tab) 10 mg QPM PO 08/09/17 21:00 09/08/17 20:59 08/09/17 21:10 10 MG Nitroglycerin (Nitrostat Tab) 0.4 mg UD PRN UT 08/09/17 13:00 09/08/17 12:59 Ondansetron HCl (Zofran Tab) 4 mg Q6H PRN PO 08/09/17 13:00 09/08/17 12:59 Oxycodone/ Acetaminophen (Percocet 5-325mg Tab) 1 tab HS PO 08/09/17 21:00 08/23/17 20:59 08/09/17 21:09 1 TAB Pantoprazole Sodium (Protonix Tab) 40 mg QAM PO 08/10/17 09:00 09/09/17 08:59 Ropinirole HCl (Requip Tab) 2 mg QPM PO 08/09/17 21:00 09/08/17 20:59 08/09/17 21:11 2 MG Ropinirole HCl (Requip Tab) 1 mg QAM PO 08/10/17 09:00 09/09/17 08:59 Rosuvastatin Calcium (Crestor Tab) 20 mg HS PO 08/09/17 21:00 09/08/17 20:59 08/09/17 21:11 20 MG Sertraline HCl (Zoloft Tab) 50 mg QPM PO 08/09/17 21:00 09/08/17 20:59 08/09/17 21:11 50 MG Trazodone HCl (Desyrel Tab) 50 mg HS PRN PO 08/09/17 13:00 09/08/17 12:59 Albuterol (Ventolin Hfa Inhaler) 2 puffs QAM PRN INH 08/09/17 13:00 09/08/17 12:59 Miscellaneous Information (Order Awaiting Action) 1 ea QAM PO 08/10/17 09:00 09/09/17 08:59 Polyethylene (Miralax Powder Packet) 17 gm DAILY PRN PO 08/09/17 13:00 09/08/17 12:59 Miscellaneous (Iv Fluids Completed) 1 ea PRN PRN N/A 08/09/17 14:00 08/09/18 13:59 Insulin Aspart (novoLOG INSULIN PUMP) 1 ea ACHS N/A 08/09/17 16:15 09/08/17 16:14 08/10/17 07:36 1 EA Insulin Aspart (novoLOG ASPART) SLIDING SCALE PRN PRN SC 08/09/17 14:45 09/08/17 14:44 Glucose (Glucose 40% Gel) UD PRN PO 08/09/17 14:45 09/08/17 14:44 Glucose (Glucose Chew Tab) 1 tabs UD PRN PO 08/09/17 14:45 09/08/17 14:44 Glucagon (Glucagon Inj) 1 mg UD PRN SQ 08/09/17 14:45 09/08/17 14:44 Dextrose (Dextrose 50% 50ML Syringe) 50 ml UD PRN IV 08/09/17 14:45 09/08/17 14:44 Impression (1) End stage renal failure on dialysis (2) Peritoneal dialysis status (3) Ischemic cardiomyopathy Mr. Caro was admitted following ICD placement. He has ESRD due to cardiorenal syndrome and is on NCCPD therapy (4 exchanges / night, 2 L fill volume, 1.5% mixed w/ 2.5% Delflex. Fill 10/dwell 100/drain 20). No complications with NCCPD overnight. BP and volume status appropriate. Resume home Rx for NCCPD at discharge. PMH - ESRD due to diabetic nephropathy, hypertensive nephrosclerosis and advanced ICM. 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 Transitioned to NCCPD 01/31. Incarcerated hernia requiring back up IHD 01/04. Patient resumed NCCPD 05/07. HTN, IDDM - on insulin pump (Heel Attacher = Dr. Jean Marie Gray / [facility] [place]) , ASCVD s/p CABG x 2 2005. Eyeglass Lens Grinder = Dr. Bruce Shepherd, COPD, ROBERT
[2017-08-10] MEDS ORDERED: [UNRECOGNIZED DRUG - OTHER] PO SCH (09:00)
[2017-08-10] MEDS ORDERED: ROPINIROLE HCL 1 MG TAB PO SCH (09:00)
[2017-08-10] MEDS ORDERED: PANTOprazole SOD 40 MG TAB PO SCH (09:00)
[2017-08-10] MEDS ORDERED: MINERALS PO SCH (09:00)
[2017-08-10 11:17] VITALS: BP 156/71; PULSE 60; TEMP 36.6; O2SAT 96
[2017-08-10 12:01] VITALS: BP 147/83; PULSE 60; TEMP 36.6; O2SAT 98
== END 2017-08-10 13:20 | disposition home or self-care (01) ==
LOC: C.ACU 06:04 → EDBEDREQTM 09:06 → ENRESERV 10:02 → C.2T 13:03
PROVIDERS: ADMIT Internal Medicine; ATTEND Internal Medicine
DX: I25.5 Ischemic cardiomyopathy (principal); I44.0 Atrioventricular block, first degree; R00.1 Bradycardia, unspecified; E10.9 Type 1 diabetes mellitus without complications; E78.5 Hyperlipidemia, unspecified; I13.2 Hypertensive heart and chronic kidney disease with heart failure and with stage 5 chronic kidney disease, or end stage renal disease; N18.6 End stage renal disease; I50.22 Chronic systolic (congestive) heart failure; J44.9 Chronic obstructive pulmonary disease, unspecified; I25.10 Atherosclerotic heart disease of native coronary artery without angina pectoris; G47.33 Obstructive sleep apnea (adult) (pediatric); I27.20 Pulmonary hypertension, unspecified; F32.9 Major depressive disorder, single episode, unspecified; K21.9 Gastro-esophageal reflux disease without esophagitis; I48.0 Paroxysmal atrial fibrillation; Z79.82 Long term (current) use of aspirin; Z95.1 Presence of aortocoronary bypass graft; Z99.2 Dependence on renal dialysis; Z96.41 Presence of insulin pump (external) (internal); Z87.891 Personal history of nicotine dependence; Z83.3 Family history of diabetes mellitus; Z82.49 Family history of ischemic heart disease and other diseases of the circulatory system

== ENCOUNTER 2017-09-18 14:30 | Inpatient (IN) | payer OTHER ==
[~2017-09-18] VITALS: Ht 162.6 cm; Wt 79.1 kg
[~2017-09-18 14:30] MED LIST changes: -CLINDAMYCIN 600 MG/54 ML D5W IV SCH; -SODIUM CHLORIDE 0.9% 1000ML 1,000 ML IV SCH
[2017-09-18] MEDS ORDERED: SODIUM CHLORIDE 0.9% 250ML 250 ML IV STA ×2 (17:33→20:25)
[2017-09-18] MEDS ORDERED: ACETAMINOPHEN 500 MG TAB PO STA (17:33)
[2017-09-18] MEDS ORDERED: ALBUT/IPRATROP 3MG/0.5MG NEB 3 ML VIAL INH STA ×2 (17:33→20:10)
--- NOTE | 2017-09-18 18:06 | DIAGNOSTIC IMAGING REPORT ---
CHEST ONE VIEW PORTABLE CLINICAL HISTORY: Fever, sepsis. COMPARISON STUDY: 08/10/2017 FINDINGS: The heart is mildly enlarged. There are postsurgical changes of a midline sternotomy. There is a right subclavian dual-chamber central venous pacemaker. There is no focal pulmonary consolidation. There are no pleural effusions. There is no overt failure.[ IMPRESSION: Stable cardiomegaly. No evidence of acute parenchymal consolidation. Electronically signed by: Mahad Velasquez M.D. 09/18/2017 6:05 PM Dictated Date/Time: 09/18/2017 6:04 PM
[2017-09-18 18:52] LABS: INFLUENZA B ANTIGEN Neg for Influ B (NEG)
[2017-09-18 19:01] LABS: CALCIUM 8.9 mg/dl (8.5-10.1); CREATININE 4.14 mg/dl (0.60-1.40); POTASSIUM 3.6 mmol/L (3.5-5.1)
[2017-09-18 19:20] LABS: TOTAL PROTEIN 6.7 gm/dl (6.4-8.2)
[2017-09-18 19:41] LABS: MEAN CORPUSCULAR HGB CONC 33.7 g/dl (32-36); MEAN PLATELET VOLUME 13.7 fL (7.4-10.4); PLATELET COUNT 128 K/uL (130-400)
[2017-09-18 19:43] LABS: BASO % 0.5 %; BASO ABS # 0.03 K/uL (0-0.2); EOS ABS # 0.06 K/uL (0-0.5); HEMATOCRIT 41.2 % (42-52); HEMOGLOBIN 13.9 g/dL (14.0-18.0); IG# 0.02 K/uL (0.00-0.02); LYMPH % 8.6 %; LYMPH ABS # 0.52 K/uL (1.2-3.4); MEAN CELL VOLUME 85.8 fL (80-100); MONO ABS # 0.97 K/uL (0.11-0.59); NEUT % 73.6 %; NEUT ABS # 4.47 K/uL (1.4-6.5); RED CELL DISTRIBUTION WIDTH CV 14.8 % (11.5-14.5); RED CELL DISTRIBUTION WIDTH SD 46.3 fL (36.4-46.3); WHITE BLOOD COUNT 6.07 K/uL (4.8-10.8)
[2017-09-18] MEDS ORDERED: METHYLPREDNISOLONE 125 MG VIAL IV STA (20:10)
[2017-09-18] MEDS ORDERED: AZITHROMYCIN 250 MG TAB PO ONE (20:15)
--- NOTE | 2017-09-18 20:18 | EMERGENCY ROOM VISIT NOTE ---
History Report prepared by Dana: Piryank Gaspar Under the Supervision of: Dr. Cleveland Santos M.D. First contact with patient: 17:20 Chief Complaint: COUGH Stated Complaint: COUGHING, WHEEZING Nursing Triage Summary: triage note unproductive coughing, wheezing, dizzy with fever started on monday pt hx renal disease with home peritoneal dialysis, pacer defib History of Present Illness The patient is a 57 year old male who presents to the Emergency Room with complaints of a persistent cough beginning two days ago. The patient also complains of nasal congestion, SOB, and fever. His fever peaked just above 100 degrees today. He had one episode of diarrhea a few days ago. The patient has a history of DM, HTN, COPD, pacemaker/defibrillator placement, multiple MN's, and asthma. He is on peritoneal dialysis each night. He still produces urine, and has had decreased urinary output recently. He states that he has lost weight recently as well. The patient's notes that she had flu-like symptoms recently, and may have given it to the patient. The patient denies abdominal pain, or vomiting. Source of History: patient, spouse/significant other () Onset: Two days ago Quality: other (cough) Timing: other (persistent) Associated Symptoms: + fevers, + SOB, + urinary symptoms (decreased output) , No vomiting, No abdominal pain Note: Additional symptoms: nasal congestion. Review of Systems See HPI for pertinent positives and negatives. A total of ten systems were reviewed and were otherwise negative. Past Medical & Surgical Medical Problems: (1) ACS (acute coronary syndrome) (2) Acute renal failure syndrome (3) Asthma (4) Asthma exacerbation (5) Benign hypertension (6) Cholecystectomy (7) Chronic obstructive lung disease (8) Coronary artery bypass grafting (9) Coronary artery disease (10) Diabetes mellitus (11) End stage renal failure on dialysis (12) ESRD on hemodialysis (13) GI bleed (14) Heart disease (15) Hepatitis (16) Hyponatremia (17) Hypotension (18) Incarcerated ventral hernia (19) Intermitent atrial fibrillation (20) Ischemic cardiomyopathy (21) Myocardial infarction (22) Obstructive sleep apnea syndrome (23) Peritoneal dialysis status (24) Peritonitis associated with peritoneal dialysis (25) Pneumonia (26) Secondary hyperparathyroidism of renal origin Surgical Problems: (1) History of bowel resection (2) History of hernia repair Family History Cancer Diabetes mellitus Heart disease Hypertension Social History Smoking Status: Never Smoker Alcohol Use: none Drug Use: none Marital Status: Housing Status: lives with family Occupation Status: disabled Current/Historical Medications Scheduled Acyclovir (Acyclovir), 400 MG PO BID Aspirin (Aspirin Ec), 81 MG PO QPM Carvedilol (Coreg), 6.25 MG PO BID Fluticasone Prop/Salmeterol (Advair Diskus 250/50 60 Dose), 1 PUFF INH Q12 Furosemide (Lasix), 40 MG PO BID Gabapentin (Neurontin), 300 MG PO HS Insulin Aspart (novoLOG INSULIN PUMP ), 1 EA N/A UD Montelukast Sod (Montelukast Sodium), 10 MG PO QPM Multiple Vitamins W/ Minerals (Prorenal Qd), 1 CAP PO QAM Oxycodone/Acetaminophen 5MG/325MG (Percocet 5MG/325MG), 1 TABLET PO HS Pantoprazole (Pantoprazole Sodium), 40 MG PO QAM Ropinirole (Requip), 2 MG PO QPM Ropinirole Hydrochloride (Requip), 1 MG PO QAM Rosuvastatin Calcium (Crestor), 20 MG PO HS Sertraline HCl (Sertraline HCl), 50 MG PO QPM Scheduled PRN Albuterol Sulfate (Proair Respiclick), 2 PUFFS INH QAM PRN for SOB/Wheezing Glucagon (Glucagon Emergency Kit), 1 DOSE INJ UD PRN for HYPOGLYCEMIA Lactulose (Chronulac), 1 DOSE PO DIRECTED PRN for Constipation Levalbuterol (Levalbuterol HCl), 1 VIAL NEB TID PRN for COPD Lorazepam (Ativan), 0.5-1 MG PO BID PRN for Anxiety Nitroglycerin (Nitrostat), 0.4 MG [place] UD PRN for Chest Pain Ondansetron Hcl (Zofran), 4 MG PO Q6H PRN for Nausea Polyethylene Glycol 3350 (Miralax), 17 GM PO DAILY PRN for Constipation Trazodone Hcl (Trazodone), 50 MG PO HS PRN for Sleep Allergies Coded Allergies: Penicillins (Verified Allergy, Severe, HIVES, 09/18/17) BEE STING (Verified Allergy, Intermediate, SWELLING, 09/18/17) DOES NOT REQUIRE EPIPEN PER FAMILY Physical Exam Vital Signs Date Time Temp Pulse Resp B/P (MAP) Pulse Ox O2 Delivery O2 Flow Rate FiO2 09/18/17 22:22 36.3 09/18/17 22:20 63 09/18/17 20:58 63 18 109/60 92 09/18/17 19:36 37.3 09/18/17 19:14 37.3 63 20 102/61 92 Room Air 09/18/17 18:18 67 09/18/17 18:06 38.5 67 18 102/63 95 Room Air 09/18/17 14:50 37.7 72 20 92/59 95 Room Air Physical Exam GENERAL: Awake, alert, chronically ill-appearing, in no distress HENT: Normocephalic, atraumatic. Dry, cracked mucous membranes. Otherwise, oropharynx unremarkable. EYES: Normal conjunctiva. Sclera non-icteric. NECK: Supple. No nuchal rigidity. FROM. No JVD. RESPIRATORY: Diffuse crackles and wheezing. CARDIAC: Regular rate, normal rhythm. Extremities warm and well perfused. Pulses equal. ABDOMEN: Soft, non-distended. No tenderness to palpation. No rebound or guarding. No masses. RLQ peritoneal dialysis site. RECTAL: Deferred. MUSCULOSKELETAL: Chest examination reveals no tenderness. The back is symmetrical on inspection without obvious abnormality. There is no CVA tenderness to palpation. No joint edema. LOWER EXTREMITIES: Calves are equal size bilaterally and non-tender. No edema. No discoloration. NEURO: Normal sensorium. No sensory or motor deficits noted. SKIN: No rash or jaundice noted. Medical Decision & Procedures ER Provider Diagnostic Interpretation: Radiology results as stated below per my review and radiologist interpretation: Patient's electrocardiogram interpreted by me. CHEST ONE VIEW PORTABLE FINDINGS: The heart is mildly enlarged. There are postsurgical changes of a midline sternotomy. There is a right subclavian dual-chamber central venous pacemaker. There is no focal pulmonary consolidation. There are no pleural effusions. There is no overt failure.[ IMPRESSION: Stable cardiomegaly. No evidence of acute parenchymal consolidation. Electronically signed by: Mahad Velasquez M.D. 09/18/2017 6:05 PM Laboratory Results Test 09/18/17 18:09 09/18/17 18:30 09/18/17 19:13 Influenza Type A Antigen Neg for Influ A (NEG) Influenza Type B Antigen Neg for Influ B (NEG) Bedside Lactic Acid Venous 1.40 mmol/L (0.90-1.70) Venous Blood pH 7.41 (7.36-7.41) Venous Blood Partial Pressure CO2 39 mmHg (38.0-50.0) Venous Blood Partial Pressure O2 56 mmHg Venous Blood HCO3 25 mmol/L Venous Blood Oxygen Saturation 87.0 % Venous Blood Base Excess 0.0 mEq/L Laboratory results reviewed by me Medications Administered Medications (Trade) Dose Ordered Sig/Shasha Route Start Time Stop Time Status Last Admin Dose Admin Albuterol/ Ipratropium (Duoneb) 3 ml NOW STAT INH 09/18/17 17:33 09/18/17 17:37 DC 09/18/17 18:39 3 ML Sodium Chloride 250 ml @ 999 mls/hr Q16M STAT IV 09/18/17 17:33 09/18/17 17:48 DC 09/18/17 18:39 999 MLS/HR Acetaminophen (Tylenol Tab) 1,000 mg NOW STAT PO 09/18/17 17:33 09/18/17 17:37 DC 09/18/17 18:13 1,000 MG Albuterol/ Ipratropium (Duoneb) 3 ml NOW STAT INH 09/18/17 20:10 09/18/17 20:13 DC 09/18/17 20:24 3 ML Methylprednisolone Sodium Succinate (Solu-Medrol IV) 125 mg NOW STAT IV 09/18/17 20:10 09/18/17 20:13 DC 09/18/17 20:24 125 MG Azithromycin (Zithromax Tab) 500 mg NOW ONCE PO 09/18/17 20:15 09/18/17 20:16 DC 09/18/17 20:25 500 MG Sodium Chloride 250 ml @ 999 mls/hr Q16M STAT IV 09/18/17 20:25 09/18/17 20:40 DC 09/18/17 20:25 999 MLS/HR Heparin Sodium/ Dextrose (Heparin 25,000 Unit/500ml D5W) 25,000 unit STK-MED ONCE .ROUTE 09/18/17 22:30 09/18/17 22:31 DC 09/18/17 22:35 25,000 UNIT ECG Indication: SOB/dyspnea Rate (beats per minute): 67 Rhythm: sinus rhythm Findings: PVC, no acute ischemic change, other (Normal axis. Non-specific ST and T wave abnormalities. ) Comparison ECG Date: Aug 09, 2017 Change: no significant change ED Course 1731: The patient was evaluated in room A7. A complete history and physical exam was performed. 2009: Upon reexamination, the patient was resting comfortably. I discussed the test results and treatment plan with him. The patient will be evaluated for further management. Medical Decision I reviewed the patient's past medical history, medications, and the nursing notes as described above. The patient's presentation and history were concerning for infections, reactive airway disease, pneumonia, pneumothorax, COPD, CHF, cardiac ischemia, pulmonary embolism, musculoskeletal, gastrointestinal, as well as other pathologies were entertained. The patient is a 57-year-old gentleman with a past medical history of COPD, end- stage renal disease on peritoneal dialysis, CAD, CHF, A. fib presents to the emergency department with cough, congestion, shortness of breath, feverishness and chills that began today per hpi. Arrival the patient is uncomfortable, mildly dyspneic, RR 20s. temp of 37.9. On exam the patient has diffuse rhonchi and wheezes throughout. 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 He notes that he normally still urinates daily but has not urinated for a couple of days. Labs notable for hyponatremia to 127. Troponin elevated to 2 however in the setting of chronic troponin elevation (although higher than recent) in the setting of his ESRD. Will continue to trend. EKG with occasional PVCs and similar to prior. WBC within normal limits. Flu Negative. Chest x-ray negative for pneumonia and without evidence of fluid overload. VBG unremarkable. Patient feeling improved after neb suggesting likely COPD exacerbation. Given the patient's significant dyspnea on arrival in the setting of his renal disease, it is reasonable to admit the patient for COPD exacerbation and hyponatremia. Given nebs, steroids, and Azithromycin. Case d/w Dr. Briseno, [facility] hospitalist, who will admit the patient for further management. Medication Reconcilliation Current Medication List: was personally reviewed by me Blood Pressure Screening Patient's blood pressure: Low blood pressure Blood pressure disposition: Did not require urgent referral Consults Time Called: 2010 Consulting Physician: Dr. KeReed Hospitalist Returned Call: 2024 I discussed the patient with Dr. Suzanna SINGH will evaluate the patient for further treatment. Impression Primary Impression: COPD exacerbation Additional Impressions: Hyponatremia Elevated troponin Scribe Attestation The scribe's documentation has been prepared under my direction and personally reviewed by me in its entirety. I confirm that the note above accurately reflects all work, treatment, procedures, and medical decision making performed by me. Departure Information Dispostion Being Evaluated By Hospitalist Referrals Arielle Whittaker MD (PCP) Patient Instructions My [facility] Problem Qualifiers
--- NOTE | 2017-09-18 21:41 | History and Physical ---
History & Physical Date & Time of Service: Sep 18, 2017 at 21:10 Chief Complaint: Coughing, Wheezing Primary Care Physician: Arielle Whittaker MD History of Present Illness Source: patient, spouse Flu like symptoms commenced ~3 days ago with cough with wheezing commencing over the weekend. Usually COPD is otherwise well controlled with home inhalers but currently minimally effective. Coughing leading to episodes of SOB without CP/heart racing/palpitations or diaphoresis. Patient was feeling nausea and had 2 episodes of non bloody emesis post PO intake, over the weekend. Subsequently has had diminished appetite. Denies abdominal pain. [place] dizzy and weak, denies falls. No fevers or chills initially, but states he did have a fever of 100.9 this AM. Sick contacts include and granddaughter. Patient denies exacerbation of SOB with exertion and does not recall change in exercise tolerance. He states his sleep is unchanged, as he uses a CPAP nightly. he has had some weight gain, but was prescribed a new peritoneal regimen to correct this. Performs peritoneal dialysis nightly. Patient states he has not voided all day today - unsure if he has had sufficient PO intake, but has been drinking water, diet mountain dew, iced tea. Last BM yesterday, non bloody no diarrhea. ROS is unremarkable except as noted above. Roundhouse Worker Dr. Robledo. News Specialist Dr. Hyman. Past Medical/Surgical History Medical Problems: ESRD due to diabetic nephropathy, hypertensive nephrosclerosis and advanced ICM. HOME HEALTH CLINICIAN started 09/02. Transitioned to NCCPD 01/31 Asthma COPD HTN IDDM - on insulin pump (Edger Technician = Dr. Jean Marie Gray / [place], [place]) End stage renal failure on dialysis Heart disease/myocardial infarction - ASCVD s/p CABG x 2 2005. Roundhouse Worker = Dr. Bruce Shepherd ROBERT Surgical Problems: History of bowel resection History of hernia repair History of cholecystectomy PD catheter removed 02/04 due to incarcerated hernia CAPD catheter placed 12/[address] Torres CABG x 2 2005 Family History Cancer Diabetes mellitus Heart disease Hypertension Non contributory Social History Smoking Status: Former Smoker (occasional cigar usage) Smokeless Tobacco Use: No Alcohol Use: occasionally Drug Use: none Marital Status: Housing status: lives with family Occupational Status: disabled Immunizations History of Influenza Vaccine: Yes Influenza Vaccine Date: May 10, 2012 History of Tetanus Vaccine?: Yes Tetanus Immunization Date: May 08, 2006 History of Pneumococcal: Yes Pneumococcal Date: May 10, 2006 History of Hepatitis B Vaccine: Yes Multi-Drug Resistant Organisms History of MDRO: No Allergies Coded Allergies: Penicillins (Verified Allergy, Severe, HIVES, 09/18/17) BEE STING (Verified Allergy, Intermediate, SWELLING, 09/18/17) DOES NOT REQUIRE EPIPEN PER FAMILY Home Medications Scheduled Acyclovir (Acyclovir), 400 MG PO BID Aspirin (Aspirin Ec), 81 MG PO QPM Carvedilol (Coreg), 6.25 MG PO BID Fluticasone Prop/Salmeterol (Advair Diskus 250/50 60 Dose), 1 PUFF INH Q12 Furosemide (Lasix), 40 MG PO BID Gabapentin (Neurontin), 300 MG PO HS Insulin Aspart (novoLOG INSULIN PUMP ), 1 EA N/A UD Montelukast Sod (Montelukast Sodium), 10 MG PO QPM Multiple Vitamins W/ Minerals (Prorenal Qd), 1 CAP PO QAM Oxycodone/Acetaminophen 5MG/325MG (Percocet 5MG/325MG), 1 TABLET PO HS Pantoprazole (Pantoprazole Sodium), 40 MG PO QAM Ropinirole (Requip), 2 MG PO QPM Ropinirole Hydrochloride (Requip), 1 MG PO QAM Rosuvastatin Calcium (Crestor), 20 MG PO HS Sertraline HCl (Sertraline HCl), 50 MG PO QPM Scheduled PRN Albuterol Sulfate (Proair Respiclick), 2 PUFFS INH QAM PRN for SOB/Wheezing Glucagon (Glucagon Emergency Kit), 1 DOSE INJ UD PRN for HYPOGLYCEMIA Lactulose (Chronulac), 1 DOSE PO DIRECTED PRN for Constipation Levalbuterol (Levalbuterol HCl), 1 VIAL NEB TID PRN for COPD Lorazepam (Ativan), 0.5-1 MG PO BID PRN for Anxiety Nitroglycerin (Nitrostat), 0.4 MG UT UD PRN for Chest Pain Ondansetron Hcl (Zofran), 4 MG PO Q6H PRN for Nausea Polyethylene Glycol 3350 (Miralax), 17 GM PO DAILY PRN for Constipation Trazodone Hcl (Trazodone), 50 MG PO HS PRN for Sleep Physical Exam Vital Signs Date Time Temp Pulse Resp B/P (MAP) Pulse Ox O2 Delivery O2 Flow Rate FiO2 09/18/17 20:58 63 18 109/60 92 09/18/17 19:36 37.3 09/18/17 19:14 37.3 63 20 102/61 92 Room Air 09/18/17 18:18 67 09/18/17 18:06 38.5 67 18 102/63 95 Room Air 09/18/17 14:50 37.7 72 20 92/59 95 Room Air General Appearance: WD/WN, no apparent distress Head: normocephalic, atraumatic Eyes: normal inspection ENT: hearing grossly normal, pharynx normal, + pertinent finding (mucous membranes tacky) Neck: supple, no adenopathy Respiratory/Chest: no respiratory distress, no accessory muscle use, + crackles , + rales, + rhonchi, + wheezing, + pertinent finding (End expiratory stridor) Cardiovascular: regular rate, rhythm, + JVD Abdomen/GI: normal bowel sounds, non tender, soft Back: normal inspection, no CVA tenderness, + pertinent finding (cyst/lipoma in mid back) Extremities/Musculoskelatal: no calf tenderness, + pedal edema, + swelling (+1- 2 pitting to mid [place]) Neurologic/Psych: alert, normal mood/affect, oriented x 3 Skin: normal color, warm/dry, no rash Diagnostics Laboratory Results Results Past 24 Hours Test 09/18/17 18:09 09/18/17 18:26 09/18/17 18:30 09/18/17 19:13 Range/Units Influenza Type A Antigen Neg for Influ A NEG Influenza Type B Antigen Neg for Influ B NEG White Blood Count 6.07 4.8-10.8 K/uL Red Blood Count 4.80 4.7-6.1 M/uL Hemoglobin 13.9 14.0-18.0 g/dL Hematocrit 41.2 42-52 % Mean Corpuscular Volume 85.8 80-100 fL Mean Corpuscular Hemoglobin 29.0 25-34 pg Mean Corpuscular Hemoglobin Concent 33.7 32-36 g/dl Platelet Count 128 130-400 K/uL Mean Platelet Volume 13.7 7.4-10.4 fL Neutrophils (%) (Auto) 73.6 % Lymphocytes (%) (Auto) 8.6 % Monocytes (%) (Auto) 16.0 % Eosinophils (%) (Auto) 1.0 % Basophils (%) (Auto) 0.5 % Neutrophils # (Auto) 4.47 1.4-6.5 K/uL Lymphocytes # (Auto) 0.52 1.2-3.4 K/uL Monocytes # (Auto) 0.97 0.11-0.59 K/uL Eosinophils # (Auto) 0.06 0-0.5 K/uL Basophils # (Auto) 0.03 0-0.2 K/uL RDW Standard Deviation 46.3 36.4-46.3 fL RDW Coefficient of Variation 14.8 11.5-14.5 % Immature Granulocyte % (Auto) 0.3 % Immature Granulocyte # (Auto) 0.02 0.00-0.02 K/uL Platelet Estimate DECREASED Sodium Level 127 136-145 mmol/L Potassium Level 3.6 3.5-5.1 mmol/L Chloride Level 90 98-107 mmol/L Carbon Dioxide Level 25 21-32 mmol/L Anion Gap 12.0 3-11 mmol/L Blood Urea Nitrogen 41 7-18 mg/dl Creatinine 4.14 0.60-1.40 mg/dl Est Creatinine Clear Calc Drug Dose 19.2 ml/min Estimated GFR () 17.4 Estimated GFR (Non- 15.0 BUN/Creatinine Ratio 10.0 10-20 Random Glucose 162 70-99 mg/dl Calcium Level 8.9 8.5-10.1 mg/dl Total Bilirubin 2.5 0.2-1 mg/dl Direct Bilirubin 1.9 0-0.2 mg/dl Aspartate Amino Transf (AST/SGOT) 205 15-37 U/L Alanine Aminotransferase (ALT/SGPT) 200 12-78 U/L Alkaline Phosphatase 940 45-117 U/L Troponin I 2.390 0-0.045 ng/ml Total Protein 6.7 6.4-8.2 gm/dl Albumin 3.0 3.4-5.0 gm/dl Bedside Lactic Acid Venous 1.40 0.90-1.70 mmol/L Venous Blood pH 7.41 7.36-7.41 Venous Blood Partial Pressure CO2 39 38.0-50.0 mmHg Venous Blood Partial Pressure O2 56 mmHg Venous Blood HCO3 25 mmol/L Venous Blood Oxygen Saturation 87.0 % Venous Blood Base Excess 0.0 mEq/L Microbiology Results 09/18/17 Blood Culture, Received Pending 09/18/17 Blood Culture, Received Pending Diagnostic Radiology CHEST ONE VIEW PORTABLE CLINICAL HISTORY: Fever, sepsis. COMPARISON STUDY: 08/10/2017 FINDINGS: The heart is mildly enlarged. There are postsurgical changes of a midline sternotomy. There is a right subclavian dual-chamber central venous pacemaker. There is no focal pulmonary consolidation. There are no pleural effusions. There is no overt failure.[ IMPRESSION: Stable cardiomegaly. No evidence of acute parenchymal consolidation. EKG Sinus rhythm with occasional Premature ventricular complexes HR 67, QTc 424 Possible Left atrial enlargement Right axis deviation Anteroseptal infarct (cited on or before 04-OCT-2011) ST & T wave abnormality, consider lateral ischemia Impression Assessment and Plan 56 y/o M Hx CAD - STEMI 01/24/17, combined CHF, HTN, PAF, ESRD - peritoneal dialysis w/history of peritonitis, recent incarcerated ventral hernia requiring surgical resection, recent GI bleed at surgical anastomosis. Following surgery in January the pt had been placed on hemodialysis and then switched back to peritoneal dialysis. 1. Asthma/COPD exacerbation - IV methylprednisone 40mg TID - Duoneb, Xopenex - Continue home meds: Advair and Montelukast - Azithromycin x 5 days for atypical coverage - Flu negative. Trend CBC and trace blood cultures - CPAP nightly 2. Elevated troponin on background of severe CAD s/p CABG, HTN, PAF, h/o NM, chronic combined systolic and diastolic CHF- last EF 30-35% (2013), s/p BiV ICD - Trend troponin - Cardiology consulted - Hep drip started - NPO after midnight in case of procedure 3. Severe CAD s/p CABG, HTN, PAF, h/o NM, chronic combined systolic and diastolic CHF- last EF 30-35% (2013), s/p BiV ICD - Continue aspirin, rosuvastatin, carvedilol, Lasix - Sinus rhythm at present. Not currently receiving anticoagulation therapy despite a high SUPA due to issues with GI blood loss - Evidence of fluid overload currently. Will get PD tonight - cardiology and nephrology consulted 4. ESRD on peritoneal dialysis- follows with Dr. Hyman - Nephrology consulted for peritoneal dialysis orders - Monitor I/O, daily weights 5. Hyponatremia - Caution re salt replacement given CHF co-morbidity - Defer management to nephrology - Trend BMP 6. IDDM w/ hypo/hyperglycemia and diabetic neuropathy - HgbA1C 4.0%: (06/06) - Continue insulin pump - BG check ac/hs - Continue gabapentin 7. Restless leg syndrome - Continue Ropinirole 8. Mood - Continue sertraline 9. VTE ppx: - SCDs - Hep drip LEVEL I, FULL CODE Resident Physician Supervision Note: I was present with Dr. Castañeda during the history and exam. I discussed the case with the resident and agree with the findings and plan as documented in the note. Any exceptions or clarifications are listed here: 57 y/o M ESRD, CAD, systolic CHF - presenting with SOB/wheezing - trop is elevated above baseline and pt has hyponatremia. He is on HS peritoneal dialysis. He is in the hospital frequently dues to COPD exacerbation, CHF exacerbation or CP. OE AAO x 3 ++ JVD BL S1,2 R Crackles at R base - poor air movement NT, ND No CCE P: The pt will be treated for COPD exacerbation We will treat for a presumed NSTEMI as well with Heparin, obtain a cardiology consult reg his hyponatremia, the pt is volume overloaded and has an EF of 25% - he may worsen with salt and ultimately the answer to this may be to return to hemodialysis - we have consulted nephrology for per. dialysis orders and reg his hypona Documented By: Maximiliano Briseno Level of Care Telemetry Advanced Directives Existing Advance Directive: No Existing Living Will: No Existing Power of Neurosurgeon: No Existing Health Care Proxy: No Resuscitation Status FULL RESUSCITATION VTE Prophylaxis VTE Risk Assessment Done? Y/N: Yes Risk Level: Moderate Given or contraindicated: SCD's Resident Tracking Resident Involvement: Resident Care Provided Care Provided: Adult Hospital Medicine
[2017-09-18] MEDS ORDERED: SODIUM CHLORIDE 0.9% 1000ML 1,000 ML IV SCH (22:02)
[2017-09-18] MEDS ORDERED: POLYETHYLENE (MIRALAX) 17 GM PACK PO PRN (22:15)
[2017-09-18] MEDS ORDERED: TRAZODONE HCL 50 MG TAB PO PRN (22:15)
[2017-09-18] MEDS ORDERED: ACETAMINOPHEN 325 MG TAB PO PRN (22:15)
[2017-09-18] MEDS ORDERED: NovoLOG INSULIN PUMP SCH (22:15)
[2017-09-18] MEDS ORDERED: MAGNESIUM HYDROXIDE SUSP 30 ML UDC PO PRN (22:15)
[2017-09-18] MEDS ORDERED: LACTULOSE SYRUP 20 GM/30 ML UDC PO PRN (22:15)
[2017-09-18] MEDS ORDERED: ONDANSETRON INJ 2 MG/ML 2 ML VIAL IV PRN (22:15)
[2017-09-18] MEDS ORDERED: LEVALBUTEROL 1.25MG/3ML NEB INH PRN (22:15)
[2017-09-18] MEDS ORDERED: LORAZEPAM 0.5 MG TAB PO PRN (22:15)
[2017-09-18] MEDS ORDERED: ALUMINUM/MAGNESIUM/SIMETH (MAALOX MAX) 30 ML UDC PO PRN (22:15)
[2017-09-18] MEDS ORDERED: NITROGLYCERIN 0.4 MG SL PER TAB CHARGE SL PRN (22:15)
[2017-09-18] MEDS ORDERED: SODIUM CHLORIDE 1 GM TAB PO ONE (22:23)
[2017-09-18] MEDS ORDERED: HEPARIN 25000 UNIT/500 ML D5W ONE (22:30)
[2017-09-18] MEDS ORDERED: HEPARIN 25,000 UNIT/500ML D5W 500 ML IV PRN (22:45)
[2017-09-18] MEDS ORDERED: GLUCOSE 10 TABS/TUBE PO PRN (23:15)
[2017-09-18] MEDS ORDERED: DEXTROSE 50% 50 ML SYR IV PRN (23:15)
[2017-09-18] MEDS ORDERED: GLUCAGON FOR INJ 1 MG VIAL SQ PRN (23:15)
[2017-09-18] MEDS ORDERED: GLUCOSE 40% GEL 15 GM TUBE PO PRN (23:15)
[2017-09-18] MEDS ORDERED: INSULIN ASPART 100 UNITS/ML VIAL SC PRN (23:15)
[2017-09-18] MEDS: NovoLOG INSULIN PUMP SCH (23:30)
[2017-09-18 23:40] VITALS: BP 122/61; PULSE 64; TEMP 37; O2SAT 94; BMI 31.0
[2017-09-18 23:56] VITALS: PULSE 67; O2SAT 95
[2017-09-18] MEDS: ALBUT/IPRATROP 3MG/0.5MG NEB 3 ML VIAL INH SCH (23:56)
[2017-09-19] VITALS (15 sets, daily range): BP systolic 111–129; BP diastolic 69–79; PULSE 60–85; TEMP 36.4–36.8; O2SAT 90–100; BMI 31.1
[2017-09-19] MEDS ORDERED: GLUCOSE 40% GEL 15 GM TUBE PO PRN (00:15)
[2017-09-19] MEDS ORDERED: GLUCOSE 10 TABS/TUBE PO PRN (00:15)
[2017-09-19] MEDS ORDERED: GLUCAGON FOR INJ 1 MG VIAL SQ PRN (00:15)
--- NOTE | 2017-09-19 00:43 | Nephrology Consultation ---
Nephrology Consultation Date & Providers Date of Consultation: Sep 19, 2017. Primary Care Provider: Arielle Whittaker MD Referring Provider: Reason for Consultation ESRD on NCCPD History of Present Illness Mr. Caro is a 57 year old white male who is seen at the request of Dr. Briseno to provide peritoneal dialysis during his hospitalization and assist with his medical management. Medical records in the hospital EMR were reviewed today and are summarized as follows: Mr. Caro has a complex medical history. This includes inoperable 3 vessel ASCVD, AODM, HTN, COPD, ROBERT and ESRD. Patient developed cardiorenal syndrome and required initiation of IHD 09/02. He transitioned to NCCPD 01/31. Mr. Caro did well on NCCPD until 01/04 when he developed an incarcerated hernia at the site of his PD catheter. He was transferred to [facility] where he underwent resection of the ischemic bowel and removal of his PD catheter. He was placed back on IHD. Shortly after returning home he began to experience melena. He returned to the hospital and was found to be profoundly anemic. Cardiac enzymes were elevated. He was again transferred to [facility]. No surgical intervention was required. His condition stablized with blood transfusion. He was discharged to home 02/01/17 and received IHD the following day. In April 2017 Mr. Caro had a new PD catheter placed by Dr. Newman and later resumed his NCCPD therapy. Over the last 4 days Mr. Caro has been experiencing progressive dyspnea. He contacted his PD nurse who noted that he was above his dry weight and placed him on 4.25% exchanges. Unfortunately his symptoms progressed. He developed a low grade fever and expiratory wheezing. He presented to the ED this evening and was diagnosed w/ a COPD exacerbation, CHF, hyponatremia and NSTEMI. Nephrology consultation has been requested to continue NCCPD therapy to correct CHF. Patient tested negative for influenza in ED. Past Medical/Surgical History Medical: # ESRD due to diabetic nephropathy, hypertensive nephrosclerosis and advanced ICM. NAT INSTRUCTOR started 09/02 # Transitioned to NCCPD 01/31 # HTN # IDDM - on insulin pump (Blasting Contract Man = Dr. Jean Marie Gray / [place], [place]) # ASCVD s/p CABG x 2 2005. Marketing Director = Dr. Bruce Shepherd # COPD # ROBERT Surgical: # PD catheter removed 02/04 due to incarcerated hernia # CAPD catheter placed 12/[address] Torres # CABG x 2 2005 Allergies Coded Allergies: Penicillins (Verified Allergy, Severe, HIVES, 09/18/17) BEE STING (Verified Allergy, Intermediate, SWELLING, 09/18/17) DOES NOT REQUIRE EPIPEN PER FAMILY Inpatient Medications Current Inpatient Medications Medications (Trade) Dose Ordered Sig/Shasha Route Start Time Stop Time Status Last Admin Dose Admin Acetaminophen (Tylenol Tab) 650 mg Q4H PRN PO 09/18/17 22:15 10/18/17 22:14 Al Hydrox/Mg Hydrox/Simethicone (Maalox Max Susp) 15 ml Q4H PRN PO 09/18/17 22:15 10/18/17 22:14 Magnesium Hydroxide (Milk Of Magnesia Susp) 30 ml Q12H PRN PO 09/18/17 22:15 10/18/17 22:14 Ondansetron HCl (Zofran Inj) 4 mg Q6H PRN IV 09/18/17 22:15 10/18/17 22:14 Nitroglycerin (Nitrostat Tab) 0.4 mg UD PRN SL 09/18/17 22:15 10/18/17 22:14 Polyethylene (Miralax Powder Packet) 17 gm DAILY PRN PO 09/18/17 22:15 10/18/17 22:14 Albuterol/ Ipratropium (Duoneb) 3 ml Q4R INH 09/19/17 00:00 10/19/17 00:00 09/18/17 23:56 3 ML Methylprednisolone Sodium Succinate 40 mg/Syringe 0.64 ml @ 1.5 mls/min TID IV 09/19/17 09:00 10/19/17 08:59 UNV Azithromycin (Zithromax Tab) 500 mg QAM PO 09/19/17 09:00 09/22/17 09:01 UNV Acyclovir (Zovirax Tab) 400 mg BID PO 09/19/17 09:00 09/29/17 08:59 UNV Aspirin (Ecotrin Tab) 81 mg QPM PO 09/19/17 21:00 10/19/17 20:59 UNV Carvedilol (Coreg Tab) 6.25 mg BID PO 09/19/17 09:00 10/19/17 08:59 UNV Salmeterol Xinafoate/ Fluticasone (Advair Diskus 250/50 Inh) 1 puff Q12 INH 09/19/17 09:00 10/19/17 08:59 UNV Furosemide (Lasix Tab) 40 mg BID PO 09/19/17 09:00 10/19/17 08:59 UNV Gabapentin (Neurontin Cap) 300 mg HS PO 09/19/17 21:00 10/19/17 20:59 UNV Lactulose (Chronulac Syrup) 10 gm DAILY PRN PO 09/18/17 22:15 10/18/17 22:14 UNV Levalbuterol (Xopenex 1.25MG/ 3ML Neb) 1.25 mg TID PRN INH 09/18/17 22:15 10/18/17 22:14 UNV Lorazepam (Ativan Tab) 0.5 mg BID PRN PO 09/18/17 22:15 10/18/17 22:14 Montelukast Sodium (Singulair Tab) 10 mg QPM PO 09/19/17 21:00 10/19/17 20:59 UNV Oxycodone/ Acetaminophen (Percocet 5-325mg Tab) 1 tab HS PO 09/19/17 21:00 10/03/17 20:59 UNV Pantoprazole Sodium (Protonix Tab) 40 mg QAM PO 09/19/17 09:00 10/19/17 08:59 UNV Ropinirole HCl (Requip Tab) 2 mg QPM PO 09/19/17 21:00 10/19/17 20:59 UNV Ropinirole HCl (Requip Tab) 1 mg QAM PO 09/19/17 09:00 10/19/17 08:59 UNV Rosuvastatin Calcium (Crestor Tab) 20 mg HS PO 09/19/17 21:00 10/19/17 20:59 UNV Sertraline HCl (Zoloft Tab) 50 mg QPM PO 09/19/17 21:00 10/19/17 20:59 UNV Trazodone HCl (Desyrel Tab) 50 mg HS PRN PO 09/18/17 22:15 10/18/17 22:14 UNV Heparin Sodium/ Dextrose 500 ml @ 25 mls/hr Q20H PRN IV 09/18/17 22:45 10/18/17 22:44 Insulin Aspart (novoLOG INSULIN PUMP) 1 ea ACHS N/A 09/18/17 23:30 10/18/17 23:29 09/18/17 23:30 1 EA Insulin Aspart (novoLOG ASPART) SLIDING SCALE PRN PRN SC 09/18/17 23:15 10/18/17 23:14 Glucose (Glucose 40% Gel) 15-30 GRAMS 15 GRAMS... UD PRN PO 09/18/17 23:15 10/18/17 23:14 Glucose (Glucose Chew Tab) 4-8 Tablets 4 Tabl... UD PRN PO 09/18/17 23:15 10/18/17 23:14 Glucagon (Glucagon Inj) 1 mg UD PRN SQ 09/18/17 23:15 10/18/17 23:14 Dextrose (Dextrose 50% 50ML Syringe) 25-50ML OF 50% DW IV FOR... UD PRN IV 09/18/17 23:15 10/18/17 23:14 Glucagon (Glucagon Inj) 1 mg UD PRN SQ 09/19/17 00:15 10/19/17 00:14 UNV Glucose (Glucose 40% Gel) 15-30 GRAMS 15 GRAMS... UD PRN PO 09/19/17 00:15 10/19/17 00:14 UNV Glucose (Glucose Chew Tab) 4-8 Tablets 4 Tabl... UD PRN PO 09/19/17 00:15 10/19/17 00:14 UNV Family History Cancer Diabetes mellitus Heart disease Hypertension Negative for CKD / ESRD Social History Smoking Status: Former Smoker Drug Use: none Marital Status: Housing Status: lives with family Occupation: disabled . Medically disabled. Former smoker (quit 2000) Review of Systems Constitutional: No fever Respiratory: + wheezing, No cough Cardiovascular: No chest pain Abdomen: No pain, No nausea, No vomiting A complete review of systems was performed. Pertinent positives are noted above. All other systems are negative. Physical Exam Date Time Temp Pulse Resp B/P (MAP) Pulse Ox O2 Delivery O2 Flow Rate FiO2 09/18/17 23:56 67 16 95 Room Air 09/18/17 23:15 88 20 117/66 92 Room Air 09/18/17 22:22 36.3 09/18/17 22:20 63 09/18/17 20:58 63 18 109/60 92 09/18/17 19:36 37.3 09/18/17 19:14 37.3 63 20 102/61 92 Room Air 09/18/17 18:18 67 09/18/17 18:06 38.5 67 18 102/63 95 Room Air 09/18/17 14:50 37.7 72 20 92/59 95 Room Air General Appearance: no apparent distress Head: normocephalic, atraumatic Eyes: PERRL, EOMI Neck: no adenopathy, no JVD, + pertinent finding Respiratory/Chest: no respiratory distress, + rales, + pertinent finding ( diffuse expiratory wheezing) Cardiovascular: regular rate, rhythm Abdomen/GI: non tender (hypoactive bowel sounds), soft Extremities/Musculoskelatal: + swelling (1+ pretibial pitting edema) Neurologic/Psych: alert, oriented x 3 Laboratory Results Last 24 Hours Test 09/18/17 18:09 09/18/17 18:26 09/18/17 18:30 09/18/17 19:13 Influenza Type A Antigen Neg for Influ A Influenza Type B Antigen Neg for Influ B White Blood Count 6.07 K/uL Red Blood Count 4.80 M/uL Hemoglobin 13.9 g/dL Hematocrit 41.2 % Mean Corpuscular Volume 85.8 fL Mean Corpuscular Hemoglobin 29.0 pg Mean Corpuscular Hemoglobin Concent 33.7 g/dl Platelet Count 128 K/uL Mean Platelet Volume 13.7 fL Neutrophils (%) (Auto) 73.6 % Lymphocytes (%) (Auto) 8.6 % Monocytes (%) (Auto) 16.0 % Eosinophils (%) (Auto) 1.0 % Basophils (%) (Auto) 0.5 % Neutrophils # (Auto) 4.47 K/uL Lymphocytes # (Auto) 0.52 K/uL Monocytes # (Auto) 0.97 K/uL Eosinophils # (Auto) 0.06 K/uL Basophils # (Auto) 0.03 K/uL RDW Standard Deviation 46.3 fL RDW Coefficient of Variation 14.8 % Immature Granulocyte % (Auto) 0.3 % Immature Granulocyte # (Auto) 0.02 K/uL Platelet Estimate DECREASED Sodium Level 127 mmol/L Potassium Level 3.6 mmol/L Chloride Level 90 mmol/L Carbon Dioxide Level 25 mmol/L Anion Gap 12.0 mmol/L Blood Urea Nitrogen 41 mg/dl Creatinine 4.14 mg/dl Est Creatinine Clear Calc Drug Dose 19.2 ml/min Estimated GFR () 17.4 Estimated GFR (Non- 15.0 BUN/Creatinine Ratio 10.0 Random Glucose 162 mg/dl Calcium Level 8.9 mg/dl Total Bilirubin 2.5 mg/dl Direct Bilirubin 1.9 mg/dl Aspartate Amino Transf (AST/SGOT) 205 U/L Alanine Aminotransferase (ALT/SGPT) 200 U/L Alkaline Phosphatase 940 U/L Troponin I 2.390 ng/ml Total Protein 6.7 gm/dl Albumin 3.0 gm/dl Bedside Lactic Acid Venous 1.40 mmol/L Venous Blood pH 7.41 Venous Blood Partial Pressure CO2 39 mmHg Venous Blood Partial Pressure O2 56 mmHg Venous Blood HCO3 25 mmol/L Venous Blood Oxygen Saturation 87.0 % Venous Blood Base Excess 0.0 mEq/L Impression Mr. Caro was admitted for COPD exacerbation, CHF, hyponatremia and NSTEMI. ECG shows NSR w/ T-wave inversion in V6. CXR w/ cardiomegally and mild to moderate pulmonary vascular congestion. He has ESRD due to cardiorenal syndrome and is on NCCPD therapy (4 exchanges / night, 2 L fill volume, 1.5% mixed w/ 2.5% Delflex. Fill 10/dwell 100/drain 20). PMH - ESRD due to diabetic nephropathy, hypertensive nephrosclerosis and advanced ICM. NAT INSTRUCTOR started 09/02. Transitioned to NCCPD 01/31. Incarcerated hernia requiring back up IHD 01/04. Patient resumed NCCPD 05/07. HTN, IDDM - on insulin pump (Blasting Contract Man = Dr. Jean Marie Gray / [place], [place]) , ASCVD s/p CABG x 2 2005. Marketing Director = Dr. Bruce Shepherd, COPD, ROBERT Recommendations END STAGE RENAL DISEASE: -- Patient has elevated Troponin and LFT's. ECG shows T-wave inversion in V6. He is currently chest pain free. SBP in PCU is 120 mmHG. CXR film reviewed and found to be c/w CHF. Will provide NCCPD therapy tonight. Orders entered into EMR and HD RN notified -- Will attempt gentle UF using 2.5% Delflex exchanges -- EDW has been ~ 175 lbs (admit wt 178 lbs) -- Continue oral Furosemide as patient has been nonoliguric in the past ASCVD: -- Will order follow up CXR and cardiac enzymes in am -- Recommend consultation w/ Cardiology and follow up echocardiogram COPD: -- Nebulizer treatments and IV Solumedrol ID: -- Tested negative for Influenza in ED -- Blood cultures pending -- On oral Azithromycin
[2017-09-19] MEDS ORDERED: IV FLUIDS COMPLETED PRN (02:30)
[2017-09-19] MEDS: ALBUT/IPRATROP 3MG/0.5MG NEB 3 ML VIAL INH SCH ×6 (03:30→23:34)
[2017-09-19] MEDS: METHYLPREDNISOLONE IV 40 MG in SYRINGE 0 ML IV SCH ×3 (04:17→20:05)
[2017-09-19 05:05] LABS: HEMATOCRIT 38.4 % (42-52); HEMOGLOBIN 13.3 g/dL (14.0-18.0); MEAN CORPUSCULAR HEMOGLOBIN 29.4 pg (25-34); MEAN CORPUSCULAR HGB CONC 34.6 g/dl (32-36); RED CELL DISTRIBUTION WIDTH CV 14.6 % (11.5-14.5); RED CELL DISTRIBUTION WIDTH SD 45.4 fL (36.4-46.3); WHITE BLOOD COUNT 4.55 K/uL (4.8-10.8)
[2017-09-19 05:17] LABS: PTT PATIENT 47.4 SECONDS (21.0-31.0)
[2017-09-19 05:18] LABS: ALBUMIN 2.8 gm/dl (3.4-5.0); CALCIUM 8.4 mg/dl (8.5-10.1); CREATININE 4.34 mg/dl (0.60-1.40); POTASSIUM 3.4 mmol/L (3.5-5.1); TOTAL PROTEIN 6.6 gm/dl (6.4-8.2)
[2017-09-19 05:39] LABS: EOS % 0.2 %; EOS ABS # 0.01 K/uL (0-0.5); IG# 0.02 K/uL (0.00-0.02); LYMPH % 4.2 %; LYMPH ABS # 0.19 K/uL (1.2-3.4); MEAN PLATELET VOLUME 13.1 fL (7.4-10.4); MONO % 3.5 %; MONO ABS # 0.16 K/uL (0.11-0.59); NEUT % 91.7 %; NEUT ABS # 4.17 K/uL (1.4-6.5); PLATELET COUNT 93 K/uL (130-400)
--- NOTE | 2017-09-19 07:06 | DIAGNOSTIC IMAGING REPORT ---
CHEST ONE VIEW PORTABLE CLINICAL HISTORY: Congestive heart failure. COMPARISON STUDY: Chest radiograph September 18, 2017. FINDINGS: There are median sternotomy wires and clips from bypass grafting. A right subclavian pacer/AICD is in place. Moderate enlargement of the cardiac silhouette is again noted. No pneumothorax or pleural effusion is noted. No consolidation is identified. There is no evidence for pulmonary edema. IMPRESSION: Cardiomegaly. No acute cardiopulmonary findings. Electronically signed by: Carmine Raymond M.D. 09/19/2017 7:04 AM Dictated Date/Time: 09/19/2017 7:03 AM
[2017-09-19] MEDS ORDERED: INSULIN IV INFUSION PROTOCOL SCH (07:30)
[2017-09-19] MEDS ORDERED: PHARMACY GLYCEMIC MGMT CONSULT PRN (07:42)
--- NOTE | 2017-09-19 08:32 | Family Medicine Progress Note ---
Progress Note Date of Service Sep 19, 2017. Subjective Pt evaluation today including: conversation w/ patient, conversation w/ family , physical exam, chart review, lab review Pt is doing well. Denies chest pain and SOB. Patient has a dry cough and denies hemoptysis. Constitutional: No fever, No chills, No sweats Respiratory: + cough, + wheezing, No sputum, No shortness of breath, No hemoptysis Cardiovascular: No chest pain, No palpitations Abdomen: No pain, No nausea, No vomiting, No diarrhea Male : No dysuria Medications Current Inpatient Medications Medications (Trade) Dose Ordered Sig/Shasha Route Start Time Stop Time Status Last Admin Dose Admin Acetaminophen (Tylenol Tab) 650 mg Q4H PRN PO 09/18/17 22:15 10/18/17 22:14 Al Hydrox/Mg Hydrox/Simethicone (Maalox Max Susp) 15 ml Q4H PRN PO 09/18/17 22:15 10/18/17 22:14 Magnesium Hydroxide (Milk Of Magnesia Susp) 30 ml Q12H PRN PO 09/18/17 22:15 10/18/17 22:14 Ondansetron HCl (Zofran Inj) 4 mg Q6H PRN IV 09/18/17 22:15 10/18/17 22:14 Nitroglycerin (Nitrostat Tab) 0.4 mg UD PRN SL 09/18/17 22:15 10/18/17 22:14 Polyethylene (Miralax Powder Packet) 17 gm DAILY PRN PO 09/18/17 22:15 10/18/17 22:14 Albuterol/ Ipratropium (Duoneb) 3 ml Q4R INH 09/19/17 00:00 10/19/17 00:00 09/19/17 19:06 3 ML Methylprednisolone Sodium Succinate 40 mg/Syringe 0.64 ml @ 1.5 mls/min Q8H IV 09/19/17 04:00 10/19/17 03:59 09/19/17 20:05 1.5 MLS/MIN Azithromycin (Zithromax Tab) 500 mg QAM PO 09/19/17 09:00 09/22/17 09:01 09/19/17 09:56 500 MG Acyclovir (Zovirax Tab) 400 mg BID PO 09/19/17 09:00 09/29/17 08:59 09/19/17 20:51 400 MG Aspirin (Ecotrin Tab) 81 mg QPM PO 09/19/17 21:00 10/19/17 20:59 09/19/17 20:50 81 MG Carvedilol (Coreg Tab) 6.25 mg BID PO 09/19/17 09:00 10/19/17 08:59 09/19/17 20:50 6.25 MG Salmeterol Xinafoate/ Fluticasone (Advair Diskus 250/50 Inh) 1 puff Q12 INH 09/19/17 09:00 10/19/17 08:59 09/19/17 20:50 1 PUFF Furosemide (Lasix Tab) 40 mg BID PO 09/19/17 09:00 10/19/17 08:59 09/19/17 20:50 40 MG Gabapentin (Neurontin Cap) 300 mg HS PO 09/19/17 21:00 10/19/17 20:59 09/19/17 20:49 300 MG Lactulose (Chronulac Syrup) 10 gm DAILY PRN PO 09/18/17 22:15 10/18/17 22:14 Levalbuterol (Xopenex 1.25MG/ 3ML Neb) 1.25 mg TID PRN INH 09/18/17 22:15 10/18/17 22:14 Lorazepam (Ativan Tab) 0.5 mg BID PRN PO 09/18/17 22:15 10/18/17 22:14 Montelukast Sodium (Singulair Tab) 10 mg QPM PO 09/19/17 21:00 10/19/17 20:59 09/19/17 20:49 10 MG Oxycodone/ Acetaminophen (Percocet 5-325mg Tab) 1 tab HS PO 09/19/17 21:00 10/03/17 20:59 09/19/17 20:53 1 TAB Pantoprazole Sodium (Protonix Tab) 40 mg QAM PO 09/19/17 09:00 10/19/17 08:59 09/19/17 09:55 40 MG Ropinirole HCl (Requip Tab) 2 mg QPM PO 09/19/17 21:00 10/19/17 20:59 09/19/17 20:49 2 MG Ropinirole HCl (Requip Tab) 1 mg QAM PO 09/19/17 09:00 10/19/17 08:59 09/19/17 09:55 1 MG Rosuvastatin Calcium (Crestor Tab) 20 mg HS PO 09/19/17 21:00 10/19/17 20:59 09/19/17 20:50 20 MG Sertraline HCl (Zoloft Tab) 50 mg QPM PO 09/19/17 21:00 10/19/17 20:59 09/19/17 20:49 50 MG Trazodone HCl (Desyrel Tab) 50 mg HS PRN PO 09/18/17 22:15 10/18/17 22:14 Insulin Aspart (novoLOG INSULIN PUMP) 1 ea ACHS N/A 09/18/17 23:30 10/18/17 23:29 Future Hold 09/19/17 09:00 1 EA Insulin Aspart (novoLOG ASPART) SLIDING SCALE PRN PRN SC 09/18/17 23:15 10/18/17 23:14 Future Hold Glucose (Glucose 40% Gel) 15-30 GRAMS 15 GRAMS... UD PRN PO 09/18/17 23:15 10/18/17 23:14 Glucose (Glucose Chew Tab) 4-8 Tablets 4 Tabl... UD PRN PO 09/18/17 23:15 10/18/17 23:14 Glucagon (Glucagon Inj) 1 mg UD PRN SQ 09/18/17 23:15 10/18/17 23:14 Dextrose (Dextrose 50% 50ML Syringe) 25-50ML OF 50% DW IV FOR... UD PRN IV 09/18/17 23:15 10/18/17 23:14 Miscellaneous (Iv Fluids Completed) 1 ea PRN PRN N/A 09/19/17 02:30 09/19/18 02:29 Miscellaneous Information (Consult Glycemic Management Pharmacy) 1 ea UD PRN N/A 09/19/17 07:42 10/19/17 07:41 Insulin Human Regular 250 units/ Sodium Chloride 252.5 ml @ 0 mls/hr Q24H IV 09/19/17 08:45 10/19/17 08:44 Future hold 09/19/17 17:35 2 MLS/HR Insulin Aspart (novoLOG ASPART) SLIDING SCALE PCHS SC 09/19/17 12:00 10/19/17 11:59 Future hold 09/19/17 17:37 7 UNITS Insulin Aspart (novoLOG ASPART) SLIDING SCALE If CARB RA... ACHS NH 09/19/17 21:00 10/19/17 20:59 09/19/17 21:00 3 UNITS Insulin Aspart (novoLOG ASPART) SLIDING SCALE If CARB RA... TODAY@0000,0400 NH 09/20/17 00:00 09/20/17 04:01 Objective Vital Signs Date Time Temp Pulse Resp B/P (MAP) Pulse Ox O2 Delivery O2 Flow Rate FiO2 09/19/17 19:09 36.5 74 21 129/79 (96) 100 Nebulizer 8.0 09/19/17 17:43 36.4 128/71 (90) 09/19/17 15:44 36.6 67 20 128/71 (90) 95 Room Air 09/19/17 15:30 Room Air 09/19/17 15:22 69 16 96 Room Air 09/19/17 12:07 36.8 66 20 122/69 (86) 91 Room Air 09/19/17 12:00 Room Air 09/19/17 11:10 68 16 91 Room Air 09/19/17 10:30 36.5 69 16 111/69 (83) 09/19/17 08:49 36.5 69 16 111/69 (83) 99 Room Air 09/19/17 08:00 Room Air 09/19/17 07:35 70 16 96 Room Air 09/19/17 05:23 95 Room Air 09/19/17 03:32 36.5 65 18 126/74 (91) 95 Room Air 09/19/17 03:30 85 16 90 Room Air 09/19/17 01:30 36.4 60 115/69 (84) 09/19/17 00:20 64 95 21 09/18/17 23:56 67 16 95 Room Air 09/18/17 23:40 37.0 64 122/61 94 Room Air 09/18/17 23:15 88 20 117/66 92 Room Air 09/18/17 22:22 36.3 09/18/17 22:20 63 Physical Exam General Appearance: WD/WN, no apparent distress Respiratory/Chest: chest non-tender, no respiratory distress, no accessory muscle use, + rales, + wheezing Cardiovascular: regular rate, rhythm, no murmur Abdomen: normal bowel sounds, non tender, soft Neurologic/Psychiatric: alert, normal mood/affect, oriented x 3 Skin: normal color, warm/dry, no rash Laboratory Results 09/19/17 04:29 Red Blood Count 4.52, Mean Corpuscular Volume 85.0, Mean Corpuscular Hemoglobin 29.4, Mean Corpuscular Hemoglobin Concent 34.6, Mean Platelet Volume 13.1, Neutrophils (%) (Auto) 91.7, Lymphocytes (%) (Auto) 4.2, Monocytes (%) (Auto) 3.5, Eosinophils (%) (Auto) 0.2, Basophils (%) (Auto) 0.0, Neutrophils # (Auto) 4.17, Lymphocytes # (Auto) 0.19, Monocytes # (Auto) 0.16, Eosinophils # (Auto) 0.01, Basophils # (Auto) 0.00 09/19/17 15:44 Test 09/19/17 04:29 09/19/17 07:11 09/19/17 14:00 09/19/17 15:44 White Blood Count 4.55 K/uL (4.8-10.8) Red Blood Count 4.52 M/uL (4.7-6.1) Hemoglobin 13.3 g/dL (14.0-18.0) Hematocrit 38.4 % (42-52) Mean Corpuscular Volume 85.0 fL (80-100) Mean Corpuscular Hemoglobin 29.4 pg (25-34) Mean Corpuscular Hemoglobin Concent 34.6 g/dl (32-36) Platelet Count 93 K/uL (130-400) Mean Platelet Volume 13.1 fL (7.4-10.4) Neutrophils (%) (Auto) 91.7 % Lymphocytes (%) (Auto) 4.2 % Monocytes (%) (Auto) 3.5 % Eosinophils (%) (Auto) 0.2 % Basophils (%) (Auto) 0.0 % Neutrophils # (Auto) 4.17 K/uL (1.4-6.5) Lymphocytes # (Auto) 0.19 K/uL (1.2-3.4) Monocytes # (Auto) 0.16 K/uL (0.11-0.59) Eosinophils # (Auto) 0.01 K/uL (0-0.5) Basophils # (Auto) 0.00 K/uL (0-0.2) RDW Standard Deviation 45.4 fL (36.4-46.3) RDW Coefficient of Variation 14.6 % (11.5-14.5) Immature Granulocyte % (Auto) 0.4 % Immature Granulocyte # (Auto) 0.02 K/uL (0.00-0.02) Platelet Estimate DECREASED Activated Partial Thromboplast Time 47.4 SECONDS (21.0-31.0) Partial Thromboplastin Ratio 1.8 Total Bilirubin 2.0 mg/dl (0.2-1) Direct Bilirubin 1.4 mg/dl (0-0.2) Aspartate Amino Transf (AST/SGOT) 115 U/L (15-37) Alanine Aminotransferase (ALT/SGPT) 172 U/L (12-78) Alkaline Phosphatase 913 U/L (45-117) Total Protein 6.6 gm/dl (6.4-8.2) Albumin 2.8 gm/dl (3.4-5.0) Beta-Hydroxybutyric Acid 3.03 mg/dL (0.2-2.81) Urine Color DK YELLOW Urine Appearance CLOUDY (CLEAR) Urine pH 5.0 (4.5-7.5) Urine Specific [place] 1.022 (1.000-1.030) Urine Protein 2+ (NEG) Urine Glucose (UA) 1+ (NEG) Urine Ketones NEG (NEG) Urine Occult Blood TRACE (NEG) Urine Nitrite NEG (NEG) Urine Bilirubin 1+ (NEG) Urine Urobilinogen NEG (NEG) Urine Leukocyte Esterase NEG (NEG) Urine WBC (Auto) 10-30 /hpf (0-5) Urine RBC (Auto) 0-4 /hpf (0-4) Urine Hyaline Casts (Auto) 1-5 /lpf (0-5) Urine Epithelial Cells (Auto) >30 /lpf (0-5) Urine Bacteria (Auto) NEG (NEG) Urine Renal Epithelial Cells /lpf (0-5) Urine Pathogenic Casts 0-3 GRANULAR CASTS /lpf (0) Urine Yeast (Auto) (NONE PRSENT) Anion Gap 13.0 mmol/L (3-11) Est Creatinine Clear Calc Drug Dose 18.0 ml/min Estimated GFR () 16.1 Estimated GFR (Non- 13.9 BUN/Creatinine Ratio 13.6 (10-20) Calcium Level 8.7 mg/dl (8.5-10.1) Chemistry Specimen Hemolysis Test 09/19/17 18:06 09/19/17 19:40 09/19/17 20:46 Troponin I 4.850 ng/ml (0-0.045) Hepatitis B Surface Antigen NEG (NEG) Hepatitis B Surface Antibody POS Bedside Glucose 154 mg/dl (70-99) Assessment and Plan 56 y/o M Hx CAD - STEMI 01/24/17, combined CHF, HTN, PAF, ESRD - peritoneal dialysis w/history of peritonitis, recent incarcerated ventral hernia requiring surgical resection, recent GI bleed at surgical anastomosis. Following surgery in January the pt had been placed on hemodialysis and then switched back to peritoneal dialysis. 09/19--Despite co-morbidities, the patient is doing well. Pt has bilateral rales and expiratory wheezes. While having a dx of COPD, pt is dies not have a home O2 requirement. Will continue abx and steroids. Will reassess patient for DC tomorrow. Continue PD. 1. Acute on Chronic resp failure 2/2 COPD exacerbation - IV methylprednisone 40mg TID - Duoneb, Xopenex - Continue home meds: Advair and Montelukast - Azithromycin x 5 days for atypical coverage - Flu negative. Trend CBC and trace blood cultures - CPAP nightly 2. Elevated troponin 2/2 demand ischemia - Trop negative x 2 - ECHO demonstrated severe LV dysfunction 25-30% - Cardiology consulted; likely 2/2 demand ischemia 3. Severe CAD s/p CABG, HTN, PAF, h/o SD, chronic combined systolic and diastolic CHF- last EF 30-35% (2013), s/p BiV ICD - Continue aspirin, rosuvastatin, carvedilol, Lasix - Sinus rhythm at present. Not currently receiving anticoagulation therapy despite a high SUPA due to issues with GI blood loss - Evidence of fluid overload currently. Will get PD tonight - cardiology and nephrology consulted 4. ESRD on peritoneal dialysis- follows with Dr. Hyman - Nephrology consulted for peritoneal dialysis orders - Monitor I/O, daily weights 5. Hyponatremia - Caution re salt replacement given CHF co-morbidity - Defer management to nephrology - Trend BMP 6. IDDM w/ hypo/hyperglycemia and diabetic neuropathy - HgbA1C 4.0%: (06/06) - Continue insulin pump - BG check ac/hs - Continue gabapentin 7. Restless leg syndrome - Continue Ropinirole 8. Mood - Continue sertraline 9. VTE ppx: - SCDs - Hep drip LEVEL I, FULL CODE History Resident Physician Supervision Note: I was present with Dr. Dangelo during the history and exam. I discussed the case with the resident and agree with the findings and plan as documented in the note. Any exceptions or clarifications are listed here. Pt reports improved shortness of breath with albuterol therapy which is similar to previous exacerbations. Reports some fatigue and lower abdominal discomfort, latter of which resolved after catheterization. General Appearance: WD/WN, no apparent distress Respiratory: chest non-tender, no respiratory distress, decreased breath sounds , rhonchi, wheezing Cardiovascular: normal peripheral pulses, regular rate, rhythm, no murmur Gastrointestinal: normal bowel sounds, non tender, soft, no organomegaly Neurologic/Psychiatric: leak patcher II-XII nml as tested, alert, normal mood/affect, oriented x 3 Skin Characteristics: normal color, warm/dry Assessment/Plan 56 y/o male h/o CAD w/ STEMI in 2017, combined CHF, HTN, pAF, ESRD on PD, recent incarcerated ventral hernia requiring repair, recent GI bleed at surgical anastomosis p/w COPD exacerbation, NSTEMI, severe hyperglycemia COPD exacerbation in the setting of asthma/COPD - improving on IV steroid therapy w/ duonebs and azithromycin. Continue Advair, singulair. CPAP qHS. NSTEMI - worsening function on echo - cardiology consultation - uptrending troponin without new sx. Off heparin drip 2/2 recent GIB. Continue rosuvastatin , carvedilol Hyperglycemia in IDDM (06/06 A1c 4) - insulin drip with glycemic c/s combined CHF - continue furosemide. Statin and B claudia therapy as above. Monitor I/O, daily weights ESRD on PD - nephrology consultation Hyponatremia - trend BMP HTN - stable - continue present mgmt pAF - not on AC 2/2 GIB per cardiology VTE PPX - SCDs LEVEL I, FULL CODE Review code in the AM
[2017-09-19] MEDS ORDERED: INSULIN HUMAN REGULAR IV BOLUS 2 UNIT in SYRINGE 0 ML IV SCH (08:45)
[2017-09-19] MEDS: INSULIN REGULAR 250 UNITS in SODIUM CHLORIDE 0.9% 250ML 250 ML IV SCH ×3 (08:59→17:35)
[2017-09-19] MEDS ORDERED: SODIUM CHLORIDE 1 GM TAB PO SCH (09:00)
[2017-09-19] MEDS: NovoLOG INSULIN PUMP SCH (09:00)
[2017-09-19] MEDS ORDERED: INSULIN GLARGINE SOLOSTAR 100 UNITS/ML 3 ML PEN SC SCH (09:00)
[2017-09-19] MEDS: FLUTICASONE/SALMETEROL 250/50 (ADVAIR) 14 PUFF/1 INHALER INH SCH ×2 (09:53→20:50)
[2017-09-19] MEDS: FUROSEMIDE 40 MG TAB PO SCH ×2 (09:54→20:50)
[2017-09-19] MEDS: CARVEDILOL 6.25 MG TAB PO SCH ×2 (09:54→20:50)
[2017-09-19] MEDS: PANTOprazole SOD 40 MG TAB PO SCH (09:55)
[2017-09-19] MEDS: ROPINIROLE HCL 1 MG TAB PO SCH ×2 (09:55→20:49)
[2017-09-19] MEDS: ACYCLOVIR 400 MG TAB PO SCH ×2 (09:56→20:51)
[2017-09-19] MEDS: AZITHROMYCIN 250 MG TAB PO SCH (09:56)
--- NOTE | 2017-09-19 10:07 | Cardiology Consultation ---
Cardiology Consultation Date of Service Sep 19, 2017. (Charis Vizcarra, WILIAM) Cardiology Consultation Requesting Physician: Dr. Castañeda Attending Computer Training Specialist: Dr. Shepherd SUBJECTIVE: Sly Caro is a marked complex 57-year-old male well known to [facility] Cardiology services followed closely for underlying ischemic cardiomyopathy, s/p recent dual chamber ICD implant 07/2017, history of multiple NSTEMI in setting of acute illness. History of GI bleed in January 2017 after small bowel obstruction, resulting in STEMI. Patient notes worsening SOB/cough/wheeze x 1 week. He contacted dialysis nurse last week for concerns regarding weight gain. Dialysis adjustments made to increase fluid removal. He subsequently lost approx 8 lbs in the last week. He then developed worsening weakness, SOB, cough, wheezing with intermittent fevers over the weekend. Patient attributed symptoms to possible flu. PCP referred him to ER for evaluation. In ER he was started on nebulizers, steroids, antibiotics. Troponin mildly elevated at 2. He was started on IV heparin by hospitalist. No complaints of chest pain. EKG without acute ischemic changes compared to prior tracings. Found to be hyponatremic. Nephrology consulted for dialysis management. Chest xray without acute pulmonary edema or pleural effusions. Edema at baseline. Echo ordered, still pending. Admitted for further work up/evaluation. At time of consult, patient feeling better. Less cough. Still wheezing. No chest pain. SOB improved. Trace b/l LE edema at his baseline, per patient. No fever or chills. He offers no complaints at this time. Review of Systems: See above for pertinent positives & negatives. A total of 10 systems reviewed and were otherwise negative. Problem List: 1. Type 1 diabetes mellitus with nephropathy. 2. End-stage renal disease, peritoneal dialysis. 3. Severe diabetic atherosclerotic coronary disease status post coronary bypass grafting in 2005, HDZ graft to LAD, saphenous vein graft to the left circumflex with poor surgical targets and incomplete revascularization. Repeat cath in January 2017: Chronic occlusion of the RCA, chronic occlusion of mid LAD, with patent HDZ to LAD graft, patent SVG to OM, diffuse [place] vessel disease. There was 80% proximal OM2; 90% distal OM2 stenosis after SVG anastomosis ( future intervention could be considered if symptoms worsen/progress), but in setting of recent GI bleed/anemia at the time, intervention was not recommended. 4. Class III angina pectoris. 5. History of stress-induced myocardial ischemia. 6. Recurrent, multiple, non-ST segment elevation myocardial infarction in the setting of acute illnesses. 7. Severe asthmatic lung disease. 8. Paroxysmal atrial fibrillation 9. Hospitalization in December with an incarcerated ventral hernia with associated small bowel obstruction complicated by postoperative GI bleeding requiring transfusion of 4 U PRBC's followed later by a STEMI. 10. Recent dual chamber ICD placed 08/09/17 - BiV unsuccessful. Surgical Problems: (1) History of bowel resection (2) History of hernia repair 3. Cholecystectomy 4. Carpel Tunnel surgery 5. EGD/Colonoscopy 6. Cataract removal 7. Vasectomy Family History: non contributory Social History: Former tobacco abuse, quit in 2005. No alcohol use. Review of patient's allergies indicates: Allergen Reactions Bee Stings Anaphylaxis Penicillins Hives PHYSICAL EXAMINATION Last 8 Hrs Date Time Temp Pulse Resp B/P (MAP) Pulse Ox O2 Delivery O2 Flow Rate FiO2 09/19/17 08:49 36.5 69 16 111/69 (83) 99 09/19/17 07:35 70 16 96 Room Air 09/19/17 05:23 95 Room Air 09/19/17 03:32 36.5 65 18 126/74 (91) 95 Room Air 09/19/17 03:30 85 16 90 Room Air General: A&Ox3. NAD. HEENT: Normocephalic. Atraumatic. PER. Neck: Bilateral bruits. Lungs: Diffuse inspiratory/expiratory wheeze and rhonchi. Heart: Regular with frequent ventricular ectopy, symptomatic. Soft apical systolic murmur. PMI is displaced. Abdomen: Insulin pump. Peritoneal dialysis catheters. +BS. Soft. Extremities: Mild fluid retention. No clubbing. No cyanosis. Distal pulses were 1/4 DATA: EKG on admission reviewed - Sinus rhythm with occasional Premature ventricular complexes Possible Left atrial enlargement Right axis deviation Anteroseptal infarct (cited on or before 04-OCT-2011) ST & T wave abnormality, consider lateral ischemia Abnormal ECG When compared with ECG of 09-AUG-2017 15:12, Premature ventricular complexes are now Present Repeat EKG Sinus rhythm with 1st degree A-V block Possible Left atrial enlargement Non- specific intra-ventricular conduction block Anterolateral infarct (cited on or before 03-APR-2012) Abnormal ECG When compared with ECG of 18-SEP-2017 18:03, ( unconfirmed) Premature ventricular complexes are no longer Present Chest xray reviewed - No acute cardiopulmonary findings. Prior Data: TTE Dated 07/24/2017: Interpretation Summary The examination is adequate to evaluate the referral indication. The wall thickness is mildly increased in segments with normal wall motion. There is an extensive area of hypokinesis to akinesis involving the posterior wall, inferior wall, inferior septum, anterior septum, anterior wall, and apex. The posterolateral and lateral segments are spared. Calculated LV ejection Fraction = 2530% (biplane method of discs). The left ventricular diastolic function is severely abnormal (grade III). The right ventricular systolic function is reduced as assessed by tricuspid annular plane systolic excursion (TAPSE< 1.7 cm). Dilated IVC with reduced collapsability with sniff indicates an elevated right atrial pressure of 15 mmHg. Mild pulmonary hypertension is present. Compared to previous study dated 01/25/2017, left ventricular function appears further diminished. January 2017 TTE: The findings are consistent with ischemic cardiomyopathy. There is a pattern suggesting inferior and apical VA. The left ventricular cavity is moderately dilated (LVED volume 90-100 ml/m^2). Calculated LV ejection Fraction = 31% (biplane method of discs). The left ventricular diastolic function is moderately abnormal (grade II). Mild secondary mitral regurgitation is present. The right ventricular systolic function is reduced as assessed by tricuspid annular plane systolic excursion (TAPSE< 1.7 cm). Normal IVC size and collapsability with inspiration indicates a normal right atrial pressure of 3 mmHg. Moderate pulmonary hypertension is present. Cardiac catheterization report reviewed dated January 25, 2017: LM - Moderate caliber, diffusely diseased with 30% distal stenosis LAD - Small caliber vessel with diffuse disease. 100% occluded in the mid segment. Small diffusely disease 1st diagonal with 80% ostial stenosis. Distal to HDZ anastomosis diffuse mild disease; retrofills small 2nd diagonal Ramus - Very small caliber vessel with severe ostial disease Circumflex - Small caliber vessel, diffusely diseased with 40% mid stenosis; occluded OM1 fills via retrograde via left to left collaterals. OM2 with severe 80% ostial stenosis, 90+% stenosis distal to anastomosis RCA - Known to be occluded proximally. Distal vessels partially fill via left to right collaterals. HDZ to LAD - Widely patent. Mild diffuse distal disease after anastomosis. SVG to OM - Widely patent. 90+ stenosis after anastomosis. ASSESSMENT: 1. Acute on chronic respiratory failure secondary to COPD exacerbation, possibly underlying viral illness 2. Elevated troponin not indicative of ACS, likely demand ischemia in the setting of acute illness and underlying ischemic cardiomyopathy, CKD on Dialysis. No anginal symptoms. 3. Ischemic cardiomyopathy 4. S/P dual chamber ICD 07/2017 5. History of GI bleed following small bowel obstruction/hernia repair in January 2017. PLAN: Continue nebs/steroids/antibiotics per hospitalist Continue dialysis per nephrology with electrolyte replacement/monitoring Discontinue IV heparin given history of significant GI bleeding and no anginal symptoms. Presentation not indicative of ACS. Continue home cardiac medications including ASA, carvedilol, Crestor. Not on CHICO /ARB due to history of hypotension and CKD. Echo pending. Case discussed with Dr. Shepherd. Will follow. (Charis Vizcarra PA-C) CARDIOLOGY ATTENDING ADDENDUM: The patient was seen and personally examined. Agree with Charis Vizcarra PA-C's findings and plans as documented above with additions as noted below. S: Patient feeling better this am. Denies anginal complaints. Telemetry reveals stable SR. Exam: Last Vital Signs Documentation Date Time Temp Pulse Resp B/P (MAP) Pulse Ox O2 Delivery O2 Flow Rate FiO2 09/19/17 08:49 36.5 69 16 111/69 (83) 99 Room Air 09/19/17 00:20 21 Gen: AAO x 2 Pulm: mild inspiratory wheezing, no rales CV: regular, no mumurs Ext: trace LE edema Impression: Acute asthma/ COPD exacerbation NSTEMI / myocardial necrosis due to supply demand mismatch, also likely element of troponin elevation due to renal insufficiency, in patient with advanced diabetes related early onset CAD. h/o ischemic CM, moderate LV systolic dysfunction, without apparent acute CHF decompensation having improved overnight. Plan: DC heparin infusion given h/o GI bleeding. Most recent cath performed 01/2017 without interventional targets. Continue antibiotics, bronchodilators, corticosteroids. Will review echo once completed. (Williams Shepherd,D.O.)
--- NOTE | 2017-09-19 11:05 | Nephrology Progress Note ---
Nephrology Progress Note Date of Service Sep 19, 2017. Chief Complaint ESRD Subjective Candelario was seen and evaluated in his hospital room this morning. He remained on the cycler but nearing a complete treatment. He tolerated dialysis well. Effluent was clear. Net UF TBD (~1.5L). Candelario reported improvement in symptoms. He did not endorse chest pains. Noted insulin adjustment per pump. Cardiology consult reviewed. Review of Systems A complete review of systems was performed. Pertinent positives are noted above. All other systems are negative. Vital Signs Last 8 Hrs Date Time Temp Pulse Resp B/P (MAP) Pulse Ox O2 Delivery O2 Flow Rate FiO2 09/19/17 08:49 36.5 69 16 111/69 (83) 99 Room Air 09/19/17 07:35 70 16 96 Room Air 09/19/17 05:23 95 Room Air 09/19/17 03:32 36.5 65 18 126/74 (91) 95 Room Air 09/19/17 03:30 85 16 90 Room Air Last Recorded Weight Weight (Kilograms): 83.700 Physical Exam General Appearance: WD/WN, no apparent distress Head: normocephalic, atraumatic Eyes: normal inspection, sclerae normal ENT: normal ENT inspection, pharynx normal Neck: supple, + JVD Respiratory/Chest: lungs clear, no respiratory distress, no accessory muscle use Cardiovascular: regular rate, rhythm Abdomen/GI: soft, + distended, + pertinent finding (exit site clean) Extremities/Musculoskelatal: normal inspection, no pedal edema Neurologic/Psych: alert, normal mood/affect Family History Cancer Diabetes mellitus Heart disease Hypertension Negative for CKD / ESRD Social History Smoking Status: Former smoker Smokeless Tobacco Use: No Alcohol Use: occasionally Drug Use: none Marital Status: Housing Status: lives with family Occupation: disabled . Medically disabled. Former smoker (quit 2000) Laboratory Results Past 24 Hours 09/18/17 18:26 Red Blood Count 4.80, Mean Corpuscular Volume 85.8, Mean Corpuscular Hemoglobin 29.0, Mean Corpuscular Hemoglobin Concent 33.7, Mean Platelet Volume 13.7, Neutrophils (%) (Auto) 73.6, Lymphocytes (%) (Auto) 8.6, Monocytes (%) (Auto) 16.0, Eosinophils (%) (Auto) 1.0, Basophils (%) (Auto) 0.5, Neutrophils # (Auto ) 4.47, Lymphocytes # (Auto) 0.52, Monocytes # (Auto) 0.97, Eosinophils # (Auto ) 0.06, Basophils # (Auto) 0.03 09/19/17 04:29 Red Blood Count 4.52, Mean Corpuscular Volume 85.0, Mean Corpuscular Hemoglobin 29.4, Mean Corpuscular Hemoglobin Concent 34.6, Mean Platelet Volume 13.1, Neutrophils (%) (Auto) 91.7, Lymphocytes (%) (Auto) 4.2, Monocytes (%) (Auto) 3.5, Eosinophils (%) (Auto) 0.2, Basophils (%) (Auto) 0.0, Neutrophils # (Auto) 4.17, Lymphocytes # (Auto) 0.19, Monocytes # (Auto) 0.16, Eosinophils # (Auto) 0.01, Basophils # (Auto) 0.00 09/18/17 18:26 09/19/17 04:29 09/19/17 07:11 Test 09/18/17 18:09 09/18/17 18:26 09/18/17 18:30 09/18/17 19:13 Influenza Type A Antigen Neg for Influ A (NEG) Influenza Type B Antigen Neg for Influ B (NEG) White Blood Count 6.07 K/uL (4.8-10.8) Red Blood Count 4.80 M/uL (4.7-6.1) Hemoglobin 13.9 g/dL (14.0-18.0) Hematocrit 41.2 % (42-52) Mean Corpuscular Volume 85.8 fL (80-100) Mean Corpuscular Hemoglobin 29.0 pg (25-34) Mean Corpuscular Hemoglobin Concent 33.7 g/dl (32-36) Platelet Count 128 K/uL (130-400) Mean Platelet Volume 13.7 fL (7.4-10.4) Neutrophils (%) (Auto) 73.6 % Lymphocytes (%) (Auto) 8.6 % Monocytes (%) (Auto) 16.0 % Eosinophils (%) (Auto) 1.0 % Basophils (%) (Auto) 0.5 % Neutrophils # (Auto) 4.47 K/uL (1.4-6.5) Lymphocytes # (Auto) 0.52 K/uL (1.2-3.4) Monocytes # (Auto) 0.97 K/uL (0.11-0.59) Eosinophils # (Auto) 0.06 K/uL (0-0.5) Basophils # (Auto) 0.03 K/uL (0-0.2) RDW Standard Deviation 46.3 fL (36.4-46.3) RDW Coefficient of Variation 14.8 % (11.5-14.5) Immature Granulocyte % (Auto) 0.3 % Immature Granulocyte # (Auto) 0.02 K/uL (0.00-0.02) Platelet Estimate DECREASED Anion Gap 12.0 mmol/L (3-11) Est Creatinine Clear Calc Drug Dose 19.2 ml/min Estimated GFR () 17.4 Estimated GFR (Non- 15.0 BUN/Creatinine Ratio 10.0 (10-20) Calcium Level 8.9 mg/dl (8.5-10.1) Total Bilirubin 2.5 mg/dl (0.2-1) Direct Bilirubin 1.9 mg/dl (0-0.2) Aspartate Amino Transf (AST/SGOT) 205 U/L (15-37) Alanine Aminotransferase (ALT/SGPT) 200 U/L (12-78) Alkaline Phosphatase 940 U/L (45-117) Troponin I 2.390 ng/ml (0-0.045) Total Protein 6.7 gm/dl (6.4-8.2) Albumin 3.0 gm/dl (3.4-5.0) Bedside Lactic Acid Venous 1.40 mmol/L (0.90-1.70) Venous Blood pH 7.41 (7.36-7.41) Venous Blood Partial Pressure CO2 39 mmHg (38.0-50.0) Venous Blood Partial Pressure O2 56 mmHg Venous Blood HCO3 25 mmol/L Venous Blood Oxygen Saturation 87.0 % Venous Blood Base Excess 0.0 mEq/L Test 09/19/17 00:38 09/19/17 01:46 09/19/17 04:29 09/19/17 06:53 Bedside Glucose 208 mg/dl (70-99) 515 mg/dl (70-99) Troponin I 2.360 ng/ml (0-0.045) White Blood Count 4.55 K/uL (4.8-10.8) Red Blood Count 4.52 M/uL (4.7-6.1) Hemoglobin 13.3 g/dL (14.0-18.0) Hematocrit 38.4 % (42-52) Mean Corpuscular Volume 85.0 fL (80-100) Mean Corpuscular Hemoglobin 29.4 pg (25-34) Mean Corpuscular Hemoglobin Concent 34.6 g/dl (32-36) Platelet Count 93 K/uL (130-400) Mean Platelet Volume 13.1 fL (7.4-10.4) Neutrophils (%) (Auto) 91.7 % Lymphocytes (%) (Auto) 4.2 % Monocytes (%) (Auto) 3.5 % Eosinophils (%) (Auto) 0.2 % Basophils (%) (Auto) 0.0 % Neutrophils # (Auto) 4.17 K/uL (1.4-6.5) Lymphocytes # (Auto) 0.19 K/uL (1.2-3.4) Monocytes # (Auto) 0.16 K/uL (0.11-0.59) Eosinophils # (Auto) 0.01 K/uL (0-0.5) Basophils # (Auto) 0.00 K/uL (0-0.2) RDW Standard Deviation 45.4 fL (36.4-46.3) RDW Coefficient of Variation 14.6 % (11.5-14.5) Immature Granulocyte % (Auto) 0.4 % Immature Granulocyte # (Auto) 0.02 K/uL (0.00-0.02) Platelet Estimate DECREASED Activated Partial Thromboplast Time 47.4 SECONDS (21.0-31.0) Partial Thromboplastin Ratio 1.8 Anion Gap 13.0 mmol/L (3-11) Est Creatinine Clear Calc Drug Dose 18.4 ml/min Estimated GFR () 16.5 Estimated GFR (Non- 14.2 BUN/Creatinine Ratio 11.3 (10-20) Calcium Level 8.4 mg/dl (8.5-10.1) Total Bilirubin 2.0 mg/dl (0.2-1) Direct Bilirubin 1.4 mg/dl (0-0.2) Aspartate Amino Transf (AST/SGOT) 115 U/L (15-37) Alanine Aminotransferase (ALT/SGPT) 172 U/L (12-78) Alkaline Phosphatase 913 U/L (45-117) Total Protein 6.6 gm/dl (6.4-8.2) Albumin 2.8 gm/dl (3.4-5.0) Beta-Hydroxybutyric Acid 5.48 mg/dL (0.2-2.81) Test 09/19/17 07:11 09/19/17 08:51 09/19/17 09:48 09/19/17 10:06 Beta-Hydroxybutyric Acid 3.03 mg/dL (0.2-2.81) Bedside Glucose 518 mg/dl (70-99) 436 mg/dl (70-99) Troponin I 1.520 ng/ml (0-0.045) Allergies Coded Allergies: Penicillins (Verified Allergy, Severe, HIVES, 09/18/17) BEE STING (Verified Allergy, Intermediate, SWELLING, 09/18/17) DOES NOT REQUIRE EPIPEN PER FAMILY Medications Current Inpatient Medications Medications (Trade) Dose Ordered Sig/Shasha Route Start Time Stop Time Status Last Admin Dose Admin Acetaminophen (Tylenol Tab) 650 mg Q4H PRN PO 09/18/17 22:15 10/18/17 22:14 Al Hydrox/Mg Hydrox/Simethicone (Maalox Max Susp) 15 ml Q4H PRN PO 09/18/17 22:15 10/18/17 22:14 Magnesium Hydroxide (Milk Of Magnesia Susp) 30 ml Q12H PRN PO 09/18/17 22:15 10/18/17 22:14 Ondansetron HCl (Zofran Inj) 4 mg Q6H PRN IV 09/18/17 22:15 10/18/17 22:14 Nitroglycerin (Nitrostat Tab) 0.4 mg UD PRN SL 09/18/17 22:15 10/18/17 22:14 Polyethylene (Miralax Powder Packet) 17 gm DAILY PRN PO 09/18/17 22:15 10/18/17 22:14 Albuterol/ Ipratropium (Duoneb) 3 ml Q4R INH 09/19/17 00:00 10/19/17 00:00 09/19/17 07:35 3 ML Methylprednisolone Sodium Succinate 40 mg/Syringe 0.64 ml @ 1.5 mls/min Q8H IV 09/19/17 04:00 10/19/17 03:59 09/19/17 04:17 1.5 MLS/MIN Azithromycin (Zithromax Tab) 500 mg QAM PO 09/19/17 09:00 09/22/17 09:01 09/19/17 09:56 500 MG Acyclovir (Zovirax Tab) 400 mg BID PO 09/19/17 09:00 09/29/17 08:59 09/19/17 09:56 400 MG Aspirin (Ecotrin Tab) 81 mg QPM PO 09/19/17 21:00 10/19/17 20:59 Carvedilol (Coreg Tab) 6.25 mg BID PO 09/19/17 09:00 10/19/17 08:59 09/19/17 09:54 6.25 MG Salmeterol Xinafoate/ Fluticasone (Advair Diskus 250/50 Inh) 1 puff Q12 INH 09/19/17 09:00 10/19/17 08:59 09/19/17 09:53 1 PUFF Furosemide (Lasix Tab) 40 mg BID PO 09/19/17 09:00 10/19/17 08:59 09/19/17 09:54 40 MG Gabapentin (Neurontin Cap) 300 mg HS PO 09/19/17 21:00 10/19/17 20:59 Lactulose (Chronulac Syrup) 10 gm DAILY PRN PO 09/18/17 22:15 10/18/17 22:14 Levalbuterol (Xopenex 1.25MG/ 3ML Neb) 1.25 mg TID PRN INH 09/18/17 22:15 10/18/17 22:14 Lorazepam (Ativan Tab) 0.5 mg BID PRN PO 09/18/17 22:15 10/18/17 22:14 Montelukast Sodium (Singulair Tab) 10 mg QPM PO 09/19/17 21:00 10/19/17 20:59 Oxycodone/ Acetaminophen (Percocet 5-325mg Tab) 1 tab HS PO 09/19/17 21:00 10/03/17 20:59 Pantoprazole Sodium (Protonix Tab) 40 mg QAM PO 09/19/17 09:00 10/19/17 08:59 09/19/17 09:55 40 MG Ropinirole HCl (Requip Tab) 2 mg QPM PO 09/19/17 21:00 10/19/17 20:59 Ropinirole HCl (Requip Tab) 1 mg QAM PO 09/19/17 09:00 10/19/17 08:59 09/19/17 09:55 1 MG Rosuvastatin Calcium (Crestor Tab) 20 mg HS PO 09/19/17 21:00 10/19/17 20:59 Sertraline HCl (Zoloft Tab) 50 mg QPM PO 09/19/17 21:00 10/19/17 20:59 Trazodone HCl (Desyrel Tab) 50 mg HS PRN PO 09/18/17 22:15 10/18/17 22:14 Insulin Aspart (novoLOG INSULIN PUMP) 1 ea ACHS N/A 09/18/17 23:30 10/18/17 23:29 Future Hold 09/19/17 09:00 1 EA Insulin Aspart (novoLOG ASPART) SLIDING SCALE PRN PRN SC 09/18/17 23:15 10/18/17 23:14 Future Hold Glucose (Glucose 40% Gel) 15-30 GRAMS 15 GRAMS... UD PRN PO 09/18/17 23:15 10/18/17 23:14 Glucose (Glucose Chew Tab) 4-8 Tablets 4 Tabl... UD PRN PO 09/18/17 23:15 10/18/17 23:14 Glucagon (Glucagon Inj) 1 mg UD PRN SQ 09/18/17 23:15 10/18/17 23:14 Dextrose (Dextrose 50% 50ML Syringe) 25-50ML OF 50% DW IV FOR... UD PRN IV 09/18/17 23:15 10/18/17 23:14 Miscellaneous (Iv Fluids Completed) 1 ea PRN PRN N/A 09/19/17 02:30 09/19/18 02:29 Miscellaneous Information (Consult Glycemic Management Pharmacy) 1 ea UD PRN N/A 09/19/17 07:42 10/19/17 07:41 Insulin Human Regular 250 units/ Sodium Chloride 252.5 ml @ 0 mls/hr Q24H IV 09/19/17 08:45 10/19/17 08:44 09/19/17 08:59 2.1 MLS/HR Insulin Aspart (novoLOG ASPART) SLIDING SCALE PCHS SC 09/19/17 12:00 10/19/17 11:59 Impression (1) ESRD on peritoneal dialysis (2) COPD exacerbation (3) Ischemic cardiomyopathy (4) Hyponatremia Mr. Caro was admitted for COPD exacerbation, CHF, hyponatremia and NSTEMI. ECG shows NSR w/ T-wave inversion in V6. CXR w/ cardiomegally and mild to moderate pulmonary vascular congestion. He has ESRD due to cardiorenal syndrome and is on NCCPD therapy (4 exchanges / night, 2 L fill volume, 1.5% mixed w/ 2.5% Delflex. Fill 10/dwell 100/drain 20). PMH - ESRD due to diabetic nephropathy, hypertensive nephrosclerosis and advanced ICM. [employer]IST started 09/02. Transitioned to NCCPD 01/31. Incarcerated hernia requiring back up IHD 01/04. Patient resumed NCCPD 05/07. HTN, IDDM - on insulin pump (Reset Merchandiser = Dr. Jean Marie Gray / [place], [place]) , ASCVD s/p CABG x 2 2005. Coat Tailor = Dr. Bruce Shepherd, COPD, ROBERT Recommendations END STAGE RENAL DISEASE: -- Volume status appears acceptable -- EDW has been ~ 175 lbs -- Continue to document weight post HD -- Continue oral Furosemide as patient has been nonoliguric in the past. Straight cath PRN ASCVD: -- Cardiology consultation reviewed -- Echocardiogram pending COPD: -- Nebulizer treatments and IV Solumedrol ID: -- Tested negative for Influenza in ED -- Blood cultures pending -- On oral Azithromycin
[2017-09-19] MEDS: INSULIN ASPART 100 UNITS/ML 3 ML PEN SC SCH ×3 (11:40→21:00)
[2017-09-19] MEDS ORDERED: NURSING VERBAL MED ORDER ONE (12:00)
[2017-09-19] MEDS ORDERED: POTASSIUM CHLORIDE 20 MEQ TABCR PO ONE (12:15)
--- NOTE | 2017-09-19 15:20 | Pharmacy Progress Note ---
Glycemic Control Intl Consult Date of Service Sep 19, 2017. Scope Glycemic Pharmacist consulted by Dr Dangelo on 09/19/17 for glycemic control and to write orders per [facility] inpatient glycemic control protocol Objective Weight (Kilograms): 82.100 Accuchecks BSG (last 24hrs): Test 09/18/17 18:26 09/19/17 00:38 09/19/17 04:29 09/19/17 06:53 Random Glucose 162 mg/dl (70-99) 416 mg/dl (70-99) Bedside Glucose 208 mg/dl (70-99) 515 mg/dl (70-99) Test 09/19/17 07:11 09/19/17 08:51 09/19/17 10:06 09/19/17 12:04 Random Glucose 511 mg/dl (70-99) Bedside Glucose 518 mg/dl (70-99) 436 mg/dl (70-99) 361 mg/dl (70-99) Test 09/19/17 14:07 Bedside Glucose 322 mg/dl (70-99) Laboratory Data (last 24hrs) Test 09/18/17 18:26 09/19/17 04:29 Anion Gap 12.0 mmol/L 13.0 mmol/L BUN/Creatinine Ratio 10.0 11.3 Blood Urea Nitrogen 41 mg/dl 49 mg/dl Creatinine 4.14 mg/dl 4.34 mg/dl Potassium Level 3.6 mmol/L 3.4 mmol/L Sodium Level 127 mmol/L 122 mmol/L White Blood Count 6.07 K/uL 4.55 K/uL Red Blood Count 4.80 M/uL 4.52 M/uL Hemoglobin 13.9 g/dL 13.3 g/dL Hematocrit 41.2 % 38.4 % Mean Corpuscular Volume 85.8 fL 85.0 fL Mean Corpuscular Hemoglobin 29.0 pg 29.4 pg Mean Corpuscular Hemoglobin Concent 33.7 g/dl 34.6 g/dl Platelet Count 128 K/uL 93 K/uL Mean Platelet Volume 13.7 fL 13.1 fL Neutrophils (%) (Auto) 73.6 % 91.7 % Lymphocytes (%) (Auto) 8.6 % 4.2 % Monocytes (%) (Auto) 16.0 % 3.5 % Eosinophils (%) (Auto) 1.0 % 0.2 % Basophils (%) (Auto) 0.5 % 0.0 % Neutrophils # (Auto) 4.47 K/uL 4.17 K/uL Lymphocytes # (Auto) 0.52 K/uL 0.19 K/uL Monocytes # (Auto) 0.97 K/uL 0.16 K/uL Eosinophils # (Auto) 0.06 K/uL 0.01 K/uL Basophils # (Auto) 0.03 K/uL 0.00 K/uL HbA1c A1c result is likely somewhat unreliable in ESRD patients d/t interactions between the A1c analyzing technique and high levels of urea in ESRD, reduced RBC life span, iron deficiency anemia, and EPO administration. HbA1c > 7.5% in ESRD patient may overestimate the extent of hyperglycemia in ESRD patients. Recent Pertinent Medications Outpatient Anti-diabetic Regimen: * NovoLog insulin pump * Basal rates vary from 1-1.2 units/hr * SF = 40 mg/dl/unit * Carb Ratio = 1 unit for every 10g CHO consumed Risk Factors for Insulin Resistance: * Steroids * Infection * Diet Assessment & Plan ASSESSMENT: * 57yo Type 1 diabetic male well known to pharmacy from previous admissions/ glycemic consults * Pt with a history of brittle diabetes and severe hypoglycemia unawareness * Currently, pt with severe hyperglycemia secondary to high dose IV steroids * Typically, patient requires ~3x outpatient pump settings to maintain glycemic control with high dose IV steroids * It is unlikely that patient will be able to treat/manage this degree of hyperglycemia with his own pump * Will d/c outpatient NovoLog pump and initiate IV insulin infusion per protocol * Will give SQ long acting basal insulin dinner to facilitate holding IV insulin infusion overnight for patient comfort. Add NovoLog coverage with other vitals at 0000 & 0400. May need to resume IV insulin infusion tomorrow AM. * Will utilize dosing which worked well in previous admissions. PLAN FOR INPATIENT GLYCEMIC CONTROL: * Start IV insulin infusion per protocol * Goal Range 250 - 350 mg/dl --> lower to 140-180 mg/dl * Will hold infusion starting at 2100 tonight to --> 0700 tomorrow for patient comfort (minimize Q1hr BSG checks and insulin infusion titrations) * Holding outpatient SQ insulin pump * Basal insulin * Lantus 30 units SQ x 1 dose tonight with dinner to cover hyperglycemia while drip is on hold overnight * Bolus insulin * NovoLog per scale ACHS or Q6hrs while NPO. Additional checks + coverage at 0000 & 0400 tonight while drip is on hold * Goal Range: Low 150 mg/dL - High 180 mg/dL * Correction Factor: 20 mg/dL/unit * Nutritional / Prandial insulin per carb ratio of 1 unit per 6 grams CHO consumed * Please note that the plan above was derived based on current level of insulin resistance and hospital stress. These recommendations are appropriate for inpatient admission only. Plan of care upon discharge will need to be reassessed to avoid potential outpatient hypo/hyperglycemia. Thank you.
[2017-09-19] MEDS ORDERED: INSULIN PROTOCOL GOAL RANGE ONE (15:30)
[2017-09-19 16:50] LABS: CALCIUM 8.7 mg/dl (8.5-10.1); CREATININE 4.43 mg/dl (0.60-1.40)
--- NOTE | 2017-09-19 16:51 | ECHOCARDIOGRAM REPORT ---
*NOTICE TO RECEIVING REPUBLICAN AGENCY This information is strictly Confidential and protected under [place] law. [place] law prohibits you from making any further disclosure of this information unless further disclosure is expressly permitted by the written consent of the person to whom it pertains or is authorized by law. A general authorization for the release of medical or other information is not sufficient for this purpose. Hospital accepts no responsibility if the information is made available to any other person, INCLUDING THE PATIENT. Interpretation Summary * Name: TOMAS WELSH Study Date: 09/19/2017 02:20 PM BP: 126/74 mmHg * Patient Location: .2T\S\S236\S\1 HR: 70 * : 1960 (M/d/yyyy) Gender: Male Height: 64 in * Age: 57 yrs Ethnicity: CA Weight: 184 lb * Ordering Physician: Cristóbal Chavarria * Referring Physician: Arielle Whittaker * Performed By: Marah Daniel RDCS * * Reason For Study: Elevated troponin, COPD exacerbation, peripheral edema * BSA: 1.9 m2 * -- Conclusions -- * 1. Mildly dilated LV. Normal LV wall thickness. * 2. Severe LV dysfunction. LVEF 25-30%. Regional wall motion abnormalities as outlined below. * 3. Normal RV size with severe RV dysfunction. * 4. Grade III diastolic dysfunction. * 4. Mild mitral regurgitation. * 6. Mild aortic regurgitation. * 5. Mild pulmonary hypertension. Est PASP 40-45 mmHg. Est RA 15 mmHg. * 6. Compared with prior study on 09/30/2014: LV now mildly dilated. LV function is worse with mid to distal anterior wall motion abnormality. Procedure Details * A complete two-dimensional transthoracic echocardiogram was performed (2D, M-mode, Doppler and color flow Doppler). Left Ventricle * The left ventricle is mildly dilated. * There is borderline concentric left ventricular hypertrophy. * Ejection Fraction = 25-30%. * There is a large sized apical, septal, anteroseptal, inferior, wall motion abnormality with hypokinesis to akinesis of the segments (see ronni for details). New mid to distal LAD severe hypokinesis. Right Ventricle * The right ventricle is grossly normal size. * The right ventricular systolic function is severely reduced. Atria * Borderline left atrial enlargement. * The right atrium is mildly dilated. * No ASD detected; PFO is not assessed. Mitral Valve * The mitral valve is grossly normal. * There is no mitral valve stenosis. * There is mild mitral regurgitation. Tricuspid Valve * There is trace tricuspid regurgitation. * Right ventricular systolic pressure is elevated at 40-50mmHg. Aortic Valve * The aortic valve opens well. * Aortic valve sclerosis mild, without significant aortic valvular stenosis. * No hemodynamically significant valvular aortic stenosis. * Mild aortic regurgitation. Pulmonic Valve * Trace pulmonic valvular regurgitation. Great Vessels * The aortic root and proximal ascending aorta are normal sized. Pericardium/Pleural * There is no pericardial effusion. Great Vessels * Dilated inferior vena cava with reduced collapsability with sniff indicates an elevated right atrial pressure of 15 mmHg Left Ventricular Diastolic Function * Diastolic dysfunction, Grade III (restrictive pattern), consistent with markedly increased left atrial pressure. MMode 2D Measurements and Calculations IVSd 1.0 cm LVIDd 5.7 cm LVIDs 4.9 cm LVPWd 1.2 cm IVS/LVPW 0.82 FS 15.4 % EDV(Teich) 162.3 ml ESV(Teich) 110.3 ml EF(Teich) 32.1 % EDV(cubed) 188.6 ml ESV(cubed) 114.2 ml EF(cubed) 39.4 % LV mass(C)d 264.2 grams LV mass(C)dI 140.0 grams/m\S\2 SV(Teich) 52.0 ml SI(Teich) 27.6 ml/m\S\2 SV(cubed) 74.4 ml SI(cubed) 39.4 ml/m\S\2 Ao root diam 2.8 cm Ao root area 6.1 cm\S\2 ACS 1.8 cm LA dimension 4.2 cm asc Aorta Diam 2.8 cm LA/Ao 1.5 LVOT diam 2.0 cm LVOT area 3.0 cm\S\2 LVAd ap4 35.1 cm\S\2 LVLd ap4 8.1 cm EDV(MOD-sp4) 124.4 ml EDV(sp4-el) 129.2 ml LVAs ap4 29.2 cm\S\2 LVLs ap4 7.7 cm ESV(MOD-sp4) 90.3 ml ESV(sp4-el) 94.7 ml EF(MOD-sp4) 27.4 % EF(sp4-el) 26.7 % LVAd ap2 43.4 cm\S\2 LVLd ap2 9.0 cm EDV(MOD-sp2) 169.3 ml EDV(sp2-el) 177.6 ml LVAs ap2 34.7 cm\S\2 LVLs ap2 8.3 cm ESV(MOD-sp2) 121.2 ml ESV(sp2-el) 122.7 ml EF(MOD-sp2) 28.4 % EF(sp2-el) 30.9 % LVLd %diff 10.3 % EDV(MOD-bp) 155.7 ml LVLs %diff 7.9 % ESV(MOD-bp) 107.9 ml EF(MOD-bp) 30.7 % SV(MOD-sp4) 34.0 ml SI(MOD-sp4) 18.0 ml/m\S\2 SV(MOD-sp2) 48.0 ml SI(MOD-sp2) 25.4 ml/m\S\2 SV(MOD-bp) 47.8 ml SI(MOD-bp) 25.3 ml/m\S\2 SV(sp4-el) 34.5 ml SI(sp4-el) 18.3 ml/m\S\2 SV(sp2-el) 54.9 ml SI(sp2-el) 29.1 ml/m\S\2 Doppler Measurements and Calculations MV E max tray 122.2 cm/sec MV A max tray 40.3 cm/sec MV E/A 3.0 MV V2 max 122.8 cm/sec MV max PG 6.0 mmHg MV V2 mean 61.4 cm/sec MV mean PG 1.9 mmHg MV V2 VTI 29.0 cm MV P1/2t max tray 120.1 cm/sec MV P1/2t 77.2 msec MVA(P1/2t) 2.9 cm\S\2 MV dec slope 455.8 cm/sec\S\2 MV dec time 0.14 sec Ao V2 max 126.7 cm/sec Ao max PG 6.4 mmHg Ao max PG (full) 4.3 mmHg JOURDAN(V,A) 1.7 cm\S\2 JOURDAN(V,D) 1.7 cm\S\2 LV V1 max PG 2.1 mmHg LV V1 max 72.8 cm/sec PA V2 max 76.0 cm/sec PA max PG 2.3 mmHg PA acc slope 231.8 cm/sec\S\2 PA acc time 0.14 sec PI end-d tray 104.5 cm/sec TR max tray 276.0 cm/sec PA pr(Accel) 14.0 mmHg
[2017-09-19] MEDS ORDERED: INSULIN GLARGINE SOLOSTAR 100 UNITS/ML 3 ML PEN SC ONE (17:45)
[2017-09-19] MEDS: MONTELUKAST SOD 10 MG TAB PO SCH (20:49)
[2017-09-19] MEDS: SERTRALINE HCL 50 MG TAB PO SCH (20:49)
[2017-09-19] MEDS: GABAPENTIN 300 MG CAP PO SCH (20:49)
[2017-09-19] MEDS: ROSUVASTATIN CALCIUM 20 MG TAB PO SCH (20:50)
[2017-09-19] MEDS: ASPIRIN 81 MG ECTAB PO SCH (20:50)
[2017-09-19] MEDS: OXYCODONE/ACETAMINOPHEN 5-325 TAB PO SCH (20:53)
[2017-09-19] MEDS ORDERED: [UNRECOGNIZED DRUG - REMARK] ONE (21:00)
[2017-09-20] VITALS (15 sets, daily range): BP systolic 95–128; BP diastolic 59–70; PULSE 60–74; TEMP 36.4–36.8; O2SAT 93–98
[2017-09-20] MEDS: INSULIN ASPART 100 UNITS/ML 3 ML PEN SC SCH ×8 (00:04→23:49)
[2017-09-20] MEDS ORDERED: HEPARIN 25,000 UNIT/500ML D5W 500 ML IV PRN (01:00)
[2017-09-20] MEDS: ALBUT/IPRATROP 3MG/0.5MG NEB 3 ML VIAL INH SCH ×3 (03:38→11:05)
[2017-09-20] MEDS: METHYLPREDNISOLONE IV 40 MG in SYRINGE 0 ML IV SCH (04:02)
[2017-09-20] MEDS: INSULIN REGULAR 250 UNITS in SODIUM CHLORIDE 0.9% 250ML 250 ML IV SCH (07:21)
[2017-09-20 07:37] LABS: PTT PATIENT 46.3 SECONDS (21.0-31.0)
[2017-09-20 07:40] LABS: HEMATOCRIT 38.3 % (42-52); HEMOGLOBIN 14.1 g/dL (14.0-18.0); MEAN CORPUSCULAR HEMOGLOBIN 30.2 pg (25-34); MEAN CORPUSCULAR HGB CONC 36.8 g/dl (32-36); PLATELET COUNT 136 K/uL (130-400); RED CELL DISTRIBUTION WIDTH CV 14.3 % (11.5-14.5); RED CELL DISTRIBUTION WIDTH SD 42.7 fL (36.4-46.3); WHITE BLOOD COUNT 16.98 K/uL (4.8-10.8)
[2017-09-20 07:49] LABS: ALBUMIN 2.7 gm/dl (3.4-5.0); CALCIUM 8.4 mg/dl (8.5-10.1); CREATININE 4.16 mg/dl (0.60-1.40); POTASSIUM 3.8 mmol/L (3.5-5.1)
[2017-09-20 07:57] LABS: TOTAL PROTEIN 6.4 gm/dl (6.4-8.2)
[2017-09-20] MEDS ORDERED: INSULIN HUMAN REGULAR IV BOLUS 2 UNIT in SYRINGE 0 ML IV SCH (08:15)
[2017-09-20] MEDS ORDERED: INSULIN REGULAR 250 UNITS in SODIUM CHLORIDE 0.9% 250ML 250 ML IV SCH (08:15)
--- NOTE | 2017-09-20 08:30 | Clinical Documentation Query ---
LAKEISHA Madison : CLINICAL DOCUMENTATION QUERIES QUERY 1 OF 2 Patient is a 56 year old male admitted for evaluation of cough, wheezing, fever, and SOB. H&P noted elevated troponin I, with attending including documentation of NSTEMI. Subsequent to this, documentation has included: " Elevated troponin 2/2 demand ischemia - Trop negative x 2 - ECHO demonstrated severe LV dysfunction 25-30% - Cardiology consulted; likely 2/2 demand ischemia" In fact, troponin values have been elevated since admission, from 2.39 ng/ml to a ?peak of 4.85 ng/ml. He was initiated on a heparin infusion, cardiology was consulted, and echocardiogram demonstrated new wall motion abnormalities. Please review and as appropriate, consider documentation as suggested below. In your clinical opinion is this patient being managed for (in addition to COPD exacerbation): ( x ) Type 2 CO (secondary to myocardial demand ischemia) ( ) Not Agree ( ) Other explanation of clinical findings (Please Explain) ( ) Unable to determine (Please Define) ( ) Need to Discuss The medical record reflects the following clinical findings, treatment, and risk factors. Clinical Indicators: As above Treatment: Telemetry, IV heparin, cardiology consultation, serial enzymes, serial EKG's, echocardiogram Risk Factors: Age, gender, inactivity, ESRD, COPD, HTN, ASCVD, prior CO s/p CABG x 2, DM QUERY 2 OF 2 Clinical documentation includes a diagnosis of: "Acute on Chronic resp failure,...,." ER provider documentation included "no distress". No documented tachypnea, hypoxemia, etc. H&P and subsequent documentation included "no apparent distress", and " no respiratory distress, no accessory muscle use". ABG was within normal limits on room air. Due to stringent requirements by our coding department, multiple clinical indicators associated with this diagnosis must be present in order for this to be coded/captured within the medical record. If appropriate, please document 2 or more of the following clinical indicators in daily progress notes and the discharge summary. If you feel the diagnosis of acute respiratory failure was made in error, or do not agree with it, simply discontinue documentation thereof. Acute Respiratory Failure indicators include: * Respirations >28 * Air hunger * Use of accessory muscles of respiration * Inability to speak in full sentences * Cyanosis * Pulse ox <90% RA or <95% on O2 *pH <7.35 or >7.45 * pO2 < 60 mm Hg (or 10mm below COPD patient's baseline) * pCO2 >50mm Hg (or 10mm above COPD patient's baseline) * mechanical ventilation * Increased work of breathing * Tachypnea Please clarify and document your clinical opinion in the progress notes and discharge summary. Terms such as "probable", "suspected", "likely", "questionable", "possible", or "still to be ruled out" are acceptable. IF IN AGREEMENT, YOU MUST DOCUMENT ABOVE DIAGNOSTIC STATEMENT IN DAILY PROGRESS NOTES AND DISCHARGE SUMMARY. This document is not part of the patient's record. Thank You, Joni Payne, RN [phone]
[2017-09-20] MEDS: FLUTICASONE/SALMETEROL 250/50 (ADVAIR) 14 PUFF/1 INHALER INH SCH ×2 (08:40→20:57)
[2017-09-20] MEDS: PANTOprazole SOD 40 MG TAB PO SCH (08:41)
[2017-09-20] MEDS: ROPINIROLE HCL 1 MG TAB PO SCH ×2 (08:41→21:00)
[2017-09-20] MEDS: CARVEDILOL 6.25 MG TAB PO SCH ×2 (08:41→21:02)
[2017-09-20] MEDS: ACYCLOVIR 400 MG TAB PO SCH ×2 (08:42→21:00)
[2017-09-20] MEDS: AZITHROMYCIN 250 MG TAB PO SCH (08:42)
[2017-09-20] MEDS: FUROSEMIDE 40 MG TAB PO SCH ×2 (08:42→20:58)
--- NOTE | 2017-09-20 08:58 | Nephrology Progress Note ---
Nephrology Progress Note Date of Service Sep 20, 2017. Chief Complaint ESRD Subjective No acute events overnight. Sly has not experienced chest pain. He is breathing comfortably. Insulin gtt was restarted this morning. He continues to have urinary retention. No fevers or chills. No complications with PD overnight. Review of Systems A complete review of systems was performed. Pertinent positives are noted above. All other systems are negative. Vital Signs Last 8 Hrs Date Time Temp Pulse Resp B/P (MAP) Pulse Ox O2 Delivery O2 Flow Rate FiO2 09/20/17 08:02 36.8 74 16 118/68 (85) 09/20/17 07:59 36.8 74 16 118/68 (85) 96 09/20/17 06:59 65 16 95 BiPAP/CPAP 09/20/17 04:21 36.5 65 16 128/70 (89) 94 09/20/17 04:00 Room Air 09/20/17 03:37 61 16 93 BiPAP/CPAP 09/20/17 03:36 61 93 21 I & O 24-Hour Column 09/21/17 08:00 Intake Total 8000 ml Output Total 27165 ml Balance -3822 ml Last Recorded Weight Weight (Kilograms): 82.400 Physical Exam General Appearance: WD/WN, no apparent distress Head: normocephalic, atraumatic Eyes: normal inspection, sclerae normal ENT: normal ENT inspection, pharynx normal Neck: supple, + JVD Respiratory/Chest: no respiratory distress, no accessory muscle use, + rhonchi Cardiovascular: regular rate, rhythm Abdomen/GI: soft, + distended Extremities/Musculoskelatal: normal inspection, no pedal edema Neurologic/Psych: alert, normal mood/affect Family History Cancer Diabetes mellitus Heart disease Hypertension Negative for CKD / ESRD Social History Smoking Status: Former smoker Smokeless Tobacco Use: No Alcohol Use: occasionally Drug Use: none Marital Status: Housing Status: lives with family Occupation: disabled . Medically disabled. Former smoker (quit 2000) Laboratory Results Past 24 Hours 09/20/17 06:57 09/19/17 15:44 09/20/17 06:57 Test 09/19/17 09:48 09/19/17 10:06 09/19/17 11:03 09/19/17 12:04 Troponin I 1.520 ng/ml (0-0.045) Bedside Glucose 436 mg/dl (70-99) 417 mg/dl (70-99) 361 mg/dl (70-99) Test 09/19/17 14:00 09/19/17 14:07 09/19/17 15:44 09/19/17 16:09 Urine Color DK YELLOW Urine Appearance CLOUDY (CLEAR) Urine pH 5.0 (4.5-7.5) Urine Specific [place] 1.022 (1.000-1.030) Urine Protein 2+ (NEG) Urine Glucose (UA) 1+ (NEG) Urine Ketones NEG (NEG) Urine Occult Blood TRACE (NEG) Urine Nitrite NEG (NEG) Urine Bilirubin 1+ (NEG) Urine Urobilinogen NEG (NEG) Urine Leukocyte Esterase NEG (NEG) Urine WBC (Auto) 10-30 /hpf (0-5) Urine RBC (Auto) 0-4 /hpf (0-4) Urine Hyaline Casts (Auto) 1-5 /lpf (0-5) Urine Epithelial Cells (Auto) >30 /lpf (0-5) Urine Bacteria (Auto) NEG (NEG) Urine Renal Epithelial Cells /lpf (0-5) Urine Pathogenic Casts 0-3 GRANULAR CASTS /lpf (0) Urine Yeast (Auto) (NONE PRSENT) Bedside Glucose 322 mg/dl (70-99) 309 mg/dl (70-99) Anion Gap 13.0 mmol/L (3-11) Est Creatinine Clear Calc Drug Dose 18.0 ml/min Estimated GFR () 16.1 Estimated GFR (Non- 13.9 BUN/Creatinine Ratio 13.6 (10-20) Calcium Level 8.7 mg/dl (8.5-10.1) Chemistry Specimen Hemolysis Test 09/19/17 17:30 09/19/17 18:06 09/19/17 18:38 09/19/17 19:30 Bedside Glucose 224 mg/dl (70-99) 242 mg/dl (70-99) 174 mg/dl (70-99) Troponin I 4.850 ng/ml (0-0.045) Test 09/19/17 19:40 09/19/17 20:46 09/19/17 23:59 09/20/17 03:59 Hepatitis B Surface Antigen NEG (NEG) Hepatitis B Surface Antibody POS Bedside Glucose 154 mg/dl (70-99) 258 mg/dl (70-99) 362 mg/dl (70-99) Test 09/20/17 06:41 09/20/17 06:57 Bedside Glucose 435 mg/dl (70-99) Red Blood Count 4.67 M/uL (4.7-6.1) Mean Corpuscular Volume 82.0 fL (80-100) Mean Corpuscular Hemoglobin 30.2 pg (25-34) Mean Corpuscular Hemoglobin Concent 36.8 g/dl (32-36) RDW Standard Deviation 42.7 fL (36.4-46.3) RDW Coefficient of Variation 14.3 % (11.5-14.5) Platelet Estimate DECREASED Activated Partial Thromboplast Time 46.3 SECONDS (21.0-31.0) Partial Thromboplastin Ratio 1.8 Anion Gap 16.0 mmol/L (3-11) Est Creatinine Clear Calc Drug Dose 19.2 ml/min Estimated GFR () 17.3 Estimated GFR (Non- 14.9 BUN/Creatinine Ratio 15.8 (10-20) Calcium Level 8.4 mg/dl (8.5-10.1) Total Bilirubin 1.0 mg/dl (0.2-1) Direct Bilirubin 0.6 mg/dl (0-0.2) Aspartate Amino Transf (AST/SGOT) 55 U/L (15-37) Alanine Aminotransferase (ALT/SGPT) 125 U/L (12-78) Alkaline Phosphatase 754 U/L (45-117) Troponin I 3.830 ng/ml (0-0.045) Total Protein 6.4 gm/dl (6.4-8.2) Albumin 2.7 gm/dl (3.4-5.0) Beta-Hydroxybutyric Acid 1.20 mg/dL (0.2-2.81) Allergies Coded Allergies: Penicillins (Verified Allergy, Severe, HIVES, 09/18/17) BEE STING (Verified Allergy, Intermediate, SWELLING, 09/18/17) DOES NOT REQUIRE EPIPEN PER FAMILY Medications Current Inpatient Medications Medications (Trade) Dose Ordered Sig/Shasha Route Start Time Stop Time Status Last Admin Dose Admin Acetaminophen (Tylenol Tab) 650 mg Q4H PRN PO 09/18/17 22:15 10/18/17 22:14 Al Hydrox/Mg Hydrox/Simethicone (Maalox Max Susp) 15 ml Q4H PRN PO 09/18/17 22:15 10/18/17 22:14 Magnesium Hydroxide (Milk Of Magnesia Susp) 30 ml Q12H PRN PO 09/18/17 22:15 10/18/17 22:14 Ondansetron HCl (Zofran Inj) 4 mg Q6H PRN IV 09/18/17 22:15 10/18/17 22:14 Nitroglycerin (Nitrostat Tab) 0.4 mg UD PRN SL 09/18/17 22:15 10/18/17 22:14 Polyethylene (Miralax Powder Packet) 17 gm DAILY PRN PO 09/18/17 22:15 10/18/17 22:14 Albuterol/ Ipratropium (Duoneb) 3 ml Q4R INH 09/19/17 00:00 10/19/17 00:00 09/20/17 06:59 3 ML Methylprednisolone Sodium Succinate 40 mg/Syringe 0.64 ml @ 1.5 mls/min Q8H IV 09/19/17 04:00 10/19/17 03:59 09/20/17 04:02 1.5 MLS/MIN Azithromycin (Zithromax Tab) 500 mg QAM PO 09/19/17 09:00 09/22/17 09:01 09/20/17 08:42 500 MG Acyclovir (Zovirax Tab) 400 mg BID PO 09/19/17 09:00 09/29/17 08:59 09/20/17 08:42 400 MG Aspirin (Ecotrin Tab) 81 mg QPM PO 09/19/17 21:00 10/19/17 20:59 09/19/17 20:50 81 MG Carvedilol (Coreg Tab) 6.25 mg BID PO 09/19/17 09:00 10/19/17 08:59 09/20/17 08:41 6.25 MG Salmeterol Xinafoate/ Fluticasone (Advair Diskus 250/50 Inh) 1 puff Q12 INH 09/19/17 09:00 10/19/17 08:59 09/20/17 08:40 1 PUFF Furosemide (Lasix Tab) 40 mg BID PO 09/19/17 09:00 10/19/17 08:59 09/20/17 08:42 40 MG Gabapentin (Neurontin Cap) 300 mg HS PO 09/19/17 21:00 10/19/17 20:59 09/19/17 20:49 300 MG Lactulose (Chronulac Syrup) 10 gm DAILY PRN PO 09/18/17 22:15 10/18/17 22:14 Levalbuterol (Xopenex 1.25MG/ 3ML Neb) 1.25 mg TID PRN INH 09/18/17 22:15 10/18/17 22:14 Lorazepam (Ativan Tab) 0.5 mg BID PRN PO 09/18/17 22:15 10/18/17 22:14 Montelukast Sodium (Singulair Tab) 10 mg QPM PO 09/19/17 21:00 10/19/17 20:59 09/19/17 20:49 10 MG Oxycodone/ Acetaminophen (Percocet 5-325mg Tab) 1 tab HS PO 09/19/17 21:00 10/03/17 20:59 09/19/17 20:53 1 TAB Pantoprazole Sodium (Protonix Tab) 40 mg QAM PO 09/19/17 09:00 10/19/17 08:59 09/20/17 08:41 40 MG Ropinirole HCl (Requip Tab) 2 mg QPM PO 09/19/17 21:00 10/19/17 20:59 09/19/17 20:49 2 MG Ropinirole HCl (Requip Tab) 1 mg QAM PO 09/19/17 09:00 10/19/17 08:59 09/20/17 08:41 1 MG Rosuvastatin Calcium (Crestor Tab) 20 mg HS PO 09/19/17 21:00 10/19/17 20:59 09/19/17 20:50 20 MG Sertraline HCl (Zoloft Tab) 50 mg QPM PO 09/19/17 21:00 10/19/17 20:59 09/19/17 20:49 50 MG Trazodone HCl (Desyrel Tab) 50 mg HS PRN PO 09/18/17 22:15 10/18/17 22:14 Insulin Aspart (novoLOG INSULIN PUMP) 1 ea ACHS N/A 1/29/18 23:30 10/18/17 23:29 Future Hold 09/19/17 09:00 1 EA Insulin Aspart (novoLOG ASPART) SLIDING SCALE PRN PRN SC 09/18/17 23:15 10/18/17 23:14 Future Hold Glucose (Glucose 40% Gel) 15-30 GRAMS 15 GRAMS... UD PRN PO 09/18/17 23:15 10/18/17 23:14 Glucose (Glucose Chew Tab) 4-8 Tablets 4 Tabl... UD PRN PO 09/18/17 23:15 10/18/17 23:14 Glucagon (Glucagon Inj) 1 mg UD PRN SQ 09/18/17 23:15 10/18/17 23:14 Dextrose (Dextrose 50% 50ML Syringe) 25-50ML OF 50% DW IV FOR... UD PRN IV 09/18/17 23:15 10/18/17 23:14 Miscellaneous (Iv Fluids Completed) 1 ea PRN PRN N/A 09/19/17 02:30 09/19/18 02:29 Miscellaneous Information (Consult Glycemic Management Pharmacy) 1 ea UD PRN N/A 09/19/17 07:42 10/19/17 07:41 Insulin Aspart (novoLOG ASPART) SLIDING SCALE PCHS MN 09/19/17 12:00 10/19/17 11:59 Future hold 09/20/17 08:17 6 UNITS Insulin Aspart (novoLOG ASPART) SLIDING SCALE If CARB RA... ACHS MN 09/19/17 21:00 10/19/17 20:59 Future Hold 09/19/17 21:00 3 UNITS Insulin Human Regular 250 units/ Sodium Chloride 252.5 ml @ 0 mls/hr Q24H IV 09/20/17 08:15 10/20/17 08:14 09/20/17 08:18 2.4 MLS/HR Insulin Glargine (Lantus Solostar Pen) 25 units TODAY@0900 ONCE SC 09/20/17 09:00 09/20/17 09:01 09/20/17 08:28 25 UNITS Insulin Glargine (Lantus Solostar Pen) 15 units BID SC 09/20/17 21:00 10/20/17 20:59 Miscellaneous Information (Nursing Heparin Iv Rate Change) 1 ea ONE ONCE N/A 09/20/17 08:45 09/20/17 08:46 UNV Impression (1) ESRD on peritoneal dialysis (2) COPD exacerbation (3) Ischemic cardiomyopathy (4) Hyponatremia Mr. Caro was admitted for COPD exacerbation, CHF, hyponatremia and NSTEMI. He has significant hyperglycemia and metabolic acidosis. Hyponatermia also exacerbated by hyperosmolar state. CXR w/ cardiomegally and mild to moderate pulmonary vascular congestion. He has ESRD due to cardiorenal syndrome and is on NCCPD therapy (4 exchanges / night, 2 L fill volume, 1.5% mixed w/ 2.5% Delflex. Fill 10/dwell 100/drain 20) . PMH - ESRD due to diabetic nephropathy, hypertensive nephrosclerosis and advanced ICM. HIDE SPREADER started 09/02. Transitioned to NCCPD 01/31. Incarcerated hernia requiring back up IHD 01/04. Patient resumed NCCPD 05/07. 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 Jean Marie Gray / [place]) , ASCVD s/p CABG x 2 2005. 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 If urinary retention persists suggest [place] with urology consult ASCVD: -- Cardiology consultation appreciated -- Repeat EKG pending -- Echocardiogram reviewed this morning COPD: -- Nebulizer treatments and IV Solumedrol ID: -- Blood cultures pending -- On oral Azithromycin
[2017-09-20] MEDS ORDERED: INSULIN GLARGINE SOLOSTAR 100 UNITS/ML 3 ML PEN SC ONE (09:00)
--- NOTE | 2017-09-20 09:03 | Cardiology Follow-Up ---
Subjective General Date of Service: Sep 20, 2017. Chief Complaint: follow up NSTEMI Pt evaluation today including: conversation w/ patient, physical exam History of Present Illness The patient is a 57 year old male seen in cardiology follow up. Telemetry reveals SR, occasional atrial pacing, occasional PVCs. Pt feels well this am. Denies chest pain. Denies worsening shortness of breath. Only subjective complain is that he has not been able to void and required urinary straight cath x 2. Repeat troponin 09/19 at 1800 had trended up to 4.8 ng/ml. No associated symptoms however EKG performed at [address] depression worse compared to am yesterday. The prompted UF heparin gtt to be reinitiated last night. This am, pt still feeling well. Trop has trended back down to 3.8 ng/ml. Repeat EKG has been requested and is pending. Allergies Coded Allergies: Penicillins (Verified Allergy, Severe, HIVES, 09/18/17) BEE STING (Verified Allergy, Intermediate, SWELLING, 09/18/17) DOES NOT REQUIRE EPIPEN PER FAMILY Social History Smoking Status: Former Smoker (occasional cigar usage) Hx Tobacco Use In Past Year?: Yes Hx Alcohol Use - Type And Amou: No Hx Substance Use - Type And Am: Yes Problem List Medical Problems: (1) Acute coronary syndrome Status: Acute (2) Acute lower GI bleeding Status: Acute (3) Anemia Status: Acute (4) Bradycardia Status: Acute (5) Chest pressure Status: Acute (6) COPD exacerbation Status: Acute (7) Diabetes mellitus Status: Acute (8) Dialysis-associated peritonitis Status: Acute (9) Elevated troponin Status: Acute (10) Elevated troponin I level Status: Acute (11) Flank pain Status: Acute (12) History of coronary artery disease Status: Acute (13) Hyperglycemia Status: Acute (14) Hyperglycemia Status: Acute (15) Hyponatremia Status: Acute (16) Near syncope Status: Acute (17) Palpitations Status: Acute (18) Peritoneal dialysis catheter in place Status: Acute (19) SBO (small bowel obstruction) Status: Acute (20) STEMI (ST elevation myocardial infarction) Status: Acute (21) Substernal chest pain Status: Acute (22) Symptomatic anemia Status: Acute (23) Ventral hernia Status: Acute Physical Exam Vital Signs Last Vital Signs Documentation Date Time Temp Pulse Resp B/P (MAP) Pulse Ox O2 Delivery O2 Flow Rate FiO2 09/20/17 08:02 36.8 74 16 118/68 (85) 09/20/17 07:59 96 09/20/17 06:59 BiPAP/CPAP 09/20/17 03:36 21 09/19/17 19:09 8.0 Physical Exam Constitutional: Level of Distress: NAD Neck: supple, trachea midline Lungs: Auscultation: pertinent finding (wheezing bilateral apex, mid lung, improved ) Cardiovascular: Heart Auscultation: RRR, no murmurs, no rubs Extremities: no edema Neurologic: Gait & Station: pertinent finding (no focal deficits ) Assessment and Plan Assessment and Plan ASSESSMENT: 1. Acute on chronic respiratory failure secondary to COPD exacerbation, possibly underlying viral illness 2. NSTEMI. Mycardial necrosis documented with elevation of troponin, EKG change , however no recent angina. 3. Ischemic cardiomyopathy , severe LV systolic dysfunction, mid / distal anterior wall more hypokinetic than prior echo 4. S/P dual chamber ICD 07/2017 5. History of GI bleed following small bowel obstruction/hernia repair in January 2017. PLAN: Patient has longstanding history of recurrent NSTEMI espisodes in the setting of severe underlying CAD that have occured with eposides of respiratory illness , or anemia. He underwent emergent cardiac catheterization 01/2017 , after I had seen him in ED, had multivessel CAD, including 100% mid LAD stenosis, and diffuse disease of HDZ to LAD that filled diag 2 retrograde. We discussed OM2 as being a future PCI territory, however patient was suffering from marked anemia post intra-abdominal surgery at that time. Although LAD wall motion is worse on echo this admission, based on passed cath film from 01/2017 , had disease not amenable to revascularization in this territory at that time. My impression is that his troponin represents demand ischemia in the setting of fixed , longstanding, severe CAD. DC UF heparin, as I do not suspect acute intracoronary thrombosis. Continue ASA, coreg, Crestor , oral furosemide. Perhaps pt would benefit from and alpha claudia, such as Flomax to help with voiding. BP is stable. Will discuss with primary service. Transition to SQ heparin for DVT prophylaxis. Laboratory Results Last 24 Hours Test 09/19/17 09:48 09/19/17 10:06 09/19/17 11:03 09/19/17 12:04 Troponin I 1.520 ng/ml Bedside Glucose 436 mg/dl 417 mg/dl 361 mg/dl Test 09/19/17 14:00 09/19/17 14:07 09/19/17 15:44 09/19/17 16:09 Urine Color DK YELLOW Urine Appearance CLOUDY Urine pH 5.0 Urine Specific [place] 1.022 Urine Protein 2+ Urine Glucose (UA) 1+ Urine Ketones NEG Urine Occult Blood TRACE Urine Nitrite NEG Urine Bilirubin 1+ Urine Urobilinogen NEG Urine Leukocyte Esterase NEG Urine WBC (Auto) 10-30 /hpf Urine RBC (Auto) 0-4 /hpf Urine Hyaline Casts (Auto) 1-5 /lpf Urine Epithelial Cells (Auto) >30 /lpf Urine Bacteria (Auto) NEG Urine Renal Epithelial Cells /lpf Urine Pathogenic Casts 0-3 GRANULAR CASTS /lpf Urine Yeast (Auto) Bedside Glucose 322 mg/dl 309 mg/dl Sodium Level 124 mmol/L Potassium Level 4.0 mmol/L Chloride Level 88 mmol/L Carbon Dioxide Level 23 mmol/L Anion Gap 13.0 mmol/L Blood Urea Nitrogen 60 mg/dl Creatinine 4.43 mg/dl Est Creatinine Clear Calc Drug Dose 18.0 ml/min Estimated GFR () 16.1 Estimated GFR (Non- 13.9 BUN/Creatinine Ratio 13.6 Random Glucose 293 mg/dl Calcium Level 8.7 mg/dl Chemistry Specimen Hemolysis Test 09/19/17 17:30 09/19/17 18:06 09/19/17 18:38 09/19/17 19:30 Bedside Glucose 224 mg/dl 242 mg/dl 174 mg/dl Troponin I 4.850 ng/ml Test 09/19/17 19:40 09/19/17 20:46 09/19/17 23:59 09/20/17 03:59 Hepatitis B Surface Antigen NEG Hepatitis B Surface Antibody POS Bedside Glucose 154 mg/dl 258 mg/dl 362 mg/dl Test 09/20/17 06:41 09/20/17 06:57 Bedside Glucose 435 mg/dl White Blood Count 16.98 K/uL Red Blood Count 4.67 M/uL Hemoglobin 14.1 g/dL Hematocrit 38.3 % Mean Corpuscular Volume 82.0 fL Mean Corpuscular Hemoglobin 30.2 pg Mean Corpuscular Hemoglobin Concent 36.8 g/dl RDW Standard Deviation 42.7 fL RDW Coefficient of Variation 14.3 % Platelet Count 136 K/uL Platelet Estimate DECREASED Activated Partial Thromboplast Time 46.3 SECONDS Partial Thromboplastin Ratio 1.8 Sodium Level 123 mmol/L Potassium Level 3.8 mmol/L Chloride Level 88 mmol/L Carbon Dioxide Level 19 mmol/L Anion Gap 16.0 mmol/L Blood Urea Nitrogen 66 mg/dl Creatinine 4.16 mg/dl Est Creatinine Clear Calc Drug Dose 19.2 ml/min Estimated GFR () 17.3 Estimated GFR (Non- 14.9 BUN/Creatinine Ratio 15.8 Random Glucose 431 mg/dl Calcium Level 8.4 mg/dl Total Bilirubin 1.0 mg/dl Direct Bilirubin 0.6 mg/dl Aspartate Amino Transf (AST/SGOT) 55 U/L Alanine Aminotransferase (ALT/SGPT) 125 U/L Alkaline Phosphatase 754 U/L Troponin I 3.830 ng/ml Total Protein 6.4 gm/dl Albumin 2.7 gm/dl Beta-Hydroxybutyric Acid 1.20 mg/dL
--- NOTE | 2017-09-20 11:33 | Pharmacy Progress Note ---
Glycemic Control Progress Note Date of Service Sep 20, 2017. Scope Glycemic Pharmacist consulted for glycemic control to write orders per [facility] inpatient glycemic control protocol. Objective Accuchecks BSG (last 24hrs): Test 09/19/17 12:04 09/19/17 14:07 09/19/17 15:44 09/19/17 16:09 Bedside Glucose 361 mg/dl (70-99) 322 mg/dl (70-99) 309 mg/dl (70-99) Random Glucose 293 mg/dl (70-99) Test 09/19/17 17:30 09/19/17 18:38 09/19/17 19:30 09/19/17 20:46 Bedside Glucose 224 mg/dl (70-99) 242 mg/dl (70-99) 174 mg/dl (70-99) 154 mg/dl (70-99) Test 09/19/17 23:59 09/20/17 03:59 09/20/17 06:41 09/20/17 06:57 Bedside Glucose 258 mg/dl (70-99) 362 mg/dl (70-99) 435 mg/dl (70-99) Random Glucose 431 mg/dl (70-99) Test 09/20/17 08:09 09/20/17 09:36 09/20/17 10:52 Bedside Glucose 439 mg/dl (70-99) 243 mg/dl (70-99) 179 mg/dl (70-99) HbA1c: A1c result is likely somewhat unreliable in ESRD patients d/t interactions between the A1c analyzing technique and high levels of urea in ESRD, reduced RBC life span, iron deficiency anemia, and EPO administration. HbA1c > 7.5% in ESRD patient may overestimate the extent of hyperglycemia in ESRD patients. Recent Pertinent Medications Outpatient Anti-diabetic Regimen: * NovoLog insulin pump * Basal rates vary from 1-1.2 units/hr * SF = 40 mg/dl/unit * Carb Ratio = 1 unit for every 10g CHO consumed Risk Factors for Insulin Resistance: * Steroids * Infection * Diet Outpatient Anti-Diabetic Meds NovoLog insulin pump * Basal rates ~ 1-1.2 units/hr * SF = 40 mg/dl/unit * CR = 1 unit for every 10g CHO consumed Assessment & Plan ASSESSMENT: * 57yo Type 1 diabetic male well known to pharmacy from previous admissions/ glycemic consults * Pt with a history of brittle diabetes and severe hypoglycemia unawareness * Currently, pt with severe hyperglycemia secondary to high dose IV steroids * Typically, patient requires ~3x outpatient pump settings to maintain glycemic control with high dose IV steroids * It is unlikely that patient will be able to treat/manage this degree of hyperglycemia with his own pump therefore, pt was initiated on IV insulin infusion yesterday. * SQ long acting basal insulin (Lantus) was given yesterday with dinner to facilitate transitioning off of IV insulin infusion overnight starting at 2100 tonight to --> 0700 tomorrow for patient comfort (minimize Q1hr BSG checks and insulin infusion titrations) * NovoLog coverage given with other vitals at 0000 & 0400 * Unfortunately, patient with rebound SEVERE hyperglycemia this morning from steroids despite aggressive SQ insulin dosing- Lantus has not yet reached steady state. Will resume IV insulin infusion and continue SQ basal bolus insulin regimen until steady state is reached to facilitate transition from IV to SQ when appropriate. * Steroids decreased to predisone 60mg PO daily --> this should yield an improve in hyperglycemia. Will adjust insulin orders accordingly. PLAN FOR INPATIENT GLYCEMIC CONTROL: * Re-start IV insulin infusion per protocol --> this is going to serve as "correctional insulin" for steroid induced hyperglycemia * Goal Range 140-180 mg/dl * Will d/c IV insulin infusion when held per calc and rate close to zero. * Holding outpatient SQ insulin pump * Basal insulin * Lantus 30 units (wt/st=2 Q24h dose) SQ x 1 dose given 09/19/17 with dinner to cover hyperglycemia while drip is on hold overnight * Re-load Lantus 25 units SQ x 1 dose given 09/20/17 AM with IV insulin infusion restart this morning * Will start Lantus 10-20units SQ BID starting this evening based on BSG * If BSG below 140mg/dl --> Lantus 10 units * If BSG 140-180 mg/dl --> Lantus 15 units * If BSG 181+ mg/d --> 20 units * Bolus insulin * NovoLog per scale ACHS or Q6hrs while NPO. Additional checks + coverage at 0000 & 0400 tonight * Goal Range: Low 150 mg/dL - High 180 mg/dL (on hold while on drip) * Correction Factor: 20 mg/dL/unit (on hold while on drip) * Nutritional / Prandial insulin per carb ratio of 1 unit per 6 grams CHO consumed (give while on insulin infusion) * Please note that the plan above was derived based on current level of insulin resistance and hospital stress. These recommendations are appropriate for inpatient admission only. Plan of care upon discharge will need to be reassessed to avoid potential outpatient hypo/hyperglycemia. Thank you.
[2017-09-20] MEDS: CIPROFLOXACIN 250 MG TAB PO SCH (14:35)
[2017-09-20] MEDS ORDERED: TAMSULOSIN HCL 0.4 MG CAP PO ONE (14:52)
--- NOTE | 2017-09-20 17:08 | Family Medicine Progress Note ---
Progress Note Date of Service Sep 20, 2017. Subjective Pt evaluation today including: conversation w/ patient, physical exam, chart review, lab review Patient denies CP/SOB. Does report urinary retention, but denies pain. Constitutional: No fever, No chills Respiratory: + cough, + wheezing, No sputum, No shortness of breath Cardiovascular: + edema, No chest pain, No palpitations Abdomen: No pain, No nausea, No vomiting Male : No dysuria Medications Current Inpatient Medications Medications (Trade) Dose Ordered Sig/Shasha Route Start Time Stop Time Status Last Admin Dose Admin Acetaminophen (Tylenol Tab) 650 mg Q4H PRN PO 09/18/17 22:15 10/18/17 22:14 Al Hydrox/Mg Hydrox/Simethicone (Maalox Max Susp) 15 ml Q4H PRN PO 09/18/17 22:15 10/18/17 22:14 Magnesium Hydroxide (Milk Of Magnesia Susp) 30 ml Q12H PRN PO 09/18/17 22:15 10/18/17 22:14 Ondansetron HCl (Zofran Inj) 4 mg Q6H PRN IV 09/18/17 22:15 10/18/17 22:14 Nitroglycerin (Nitrostat Tab) 0.4 mg UD PRN SL 09/18/17 22:15 10/18/17 22:14 Polyethylene (Miralax Powder Packet) 17 gm DAILY PRN PO 09/18/17 22:15 10/18/17 22:14 Acyclovir (Zovirax Tab) 400 mg BID PO 09/19/17 09:00 09/29/17 08:59 09/20/17 21:00 400 MG Aspirin (Ecotrin Tab) 81 mg QPM PO 09/19/17 21:00 10/19/17 20:59 09/20/17 20:58 81 MG Carvedilol (Coreg Tab) 6.25 mg BID PO 09/19/17 09:00 10/19/17 08:59 09/20/17 21:02 6.25 MG Salmeterol Xinafoate/ Fluticasone (Advair Diskus 250/50 Inh) 1 puff Q12 INH 09/19/17 09:00 10/19/17 08:59 09/20/17 20:57 1 PUFF Furosemide (Lasix Tab) 40 mg BID PO 09/19/17 09:00 10/19/17 08:59 09/20/17 20:58 40 MG Gabapentin (Neurontin Cap) 300 mg HS PO 09/19/17 21:00 10/19/17 20:59 09/20/17 20:59 300 MG Lactulose (Chronulac Syrup) 10 gm DAILY PRN PO 09/18/17 22:15 10/18/17 22:14 Levalbuterol (Xopenex 1.25MG/ 3ML Neb) 1.25 mg TID PRN INH 09/18/17 22:15 10/18/17 22:14 09/20/17 14:48 1.25 MG Lorazepam (Ativan Tab) 0.5 mg BID PRN PO 09/18/17 22:15 10/18/17 22:14 Montelukast Sodium (Singulair Tab) 10 mg QPM PO 09/19/17 21:00 10/19/17 20:59 09/20/17 21:00 10 MG Oxycodone/ Acetaminophen (Percocet 5-325mg Tab) 1 tab HS PO 09/19/17 21:00 10/03/17 20:59 09/20/17 21:20 1 TAB Pantoprazole Sodium (Protonix Tab) 40 mg QAM PO 09/19/17 09:00 10/19/17 08:59 09/20/17 08:41 40 MG Ropinirole HCl (Requip Tab) 2 mg QPM PO 09/19/17 21:00 10/19/17 20:59 09/20/17 21:00 2 MG Ropinirole HCl (Requip Tab) 1 mg QAM PO 09/19/17 09:00 10/19/17 08:59 09/20/17 08:41 1 MG Rosuvastatin Calcium (Crestor Tab) 20 mg HS PO 09/19/17 21:00 10/19/17 20:59 09/20/17 20:58 20 MG Sertraline HCl (Zoloft Tab) 50 mg QPM PO 09/19/17 21:00 10/19/17 20:59 09/19/17 20:49 50 MG Trazodone HCl (Desyrel Tab) 50 mg HS PRN PO 09/18/17 22:15 10/18/17 22:14 Glucose (Glucose 40% Gel) 15-30 GRAMS 15 GRAMS... UD PRN PO 09/18/17 23:15 10/18/17 23:14 Glucose (Glucose Chew Tab) 4-8 Tablets 4 Tabl... UD PRN PO 09/18/17 23:15 10/18/17 23:14 Glucagon (Glucagon Inj) 1 mg UD PRN SQ 09/18/17 23:15 10/18/17 23:14 Dextrose (Dextrose 50% 50ML Syringe) 25-50ML OF 50% DW IV FOR... UD PRN IV 09/18/17 23:15 10/18/17 23:14 Miscellaneous (Iv Fluids Completed) 1 ea PRN PRN N/A 09/19/17 02:30 09/19/18 02:29 Miscellaneous Information (Consult Glycemic Management Pharmacy) 1 ea UD PRN N/A 09/19/17 07:42 10/19/17 07:41 Insulin Aspart (novoLOG ASPART) SLIDING SCALE If CARB RA... ACHS SC 09/19/17 21:00 10/19/17 20:59 Future hold 09/20/17 21:25 3 UNITS Heparin Sodium (Porcine) (Heparin Sq 5000 Unit/0.5ml) 5,000 unit Q12 SQ 09/20/17 21:00 10/20/17 20:59 09/20/17 21:26 5,000 UNIT Prednisone (PredniSONE TAB) 60 mg DAILY PO 09/21/17 09:00 10/21/17 08:59 Ciprofloxacin (Ciprofloxacin Tab) 250 mg DAILY PO 09/20/17 11:59 11/02/17 11:58 09/20/17 14:35 250 MG Insulin Glargine (Lantus Solostar Pen) SEE PROTOCOL TEXT BID SC 09/20/17 21:00 10/20/17 20:59 09/20/17 21:26 15 UNITS Insulin Aspart (novoLOG ASPART) SLIDING SCALE If CARB RA... TODAY@0000,0400 SC 09/21/17 00:00 09/21/17 04:01 Tamsulosin HCl (Flomax Cap) 0.4 mg QAM PO 09/21/17 09:00 10/21/17 08:59 Objective Vital Signs Date Time Temp Pulse Resp B/P (MAP) Pulse Ox O2 Delivery O2 Flow Rate FiO2 09/20/17 21:48 36.6 70 100/65 (77) 09/20/17 19:41 36.6 70 20 100/65 (77) 95 Room Air 09/20/17 16:00 98 Room Air 09/20/17 15:40 36.5 72 20 95/59 (71) 98 Room Air 09/20/17 14:48 69 16 97 Room Air 09/20/17 11:44 36.4 60 16 104/60 (75) 98 Room Air 09/20/17 11:05 64 16 98 Room Air 09/20/17 08:02 36.8 74 16 118/68 (85) 09/20/17 08:00 Room Air 09/20/17 07:59 36.8 74 16 118/68 (85) 96 Room Air 09/20/17 06:59 65 16 95 BiPAP/CPAP 09/20/17 04:21 36.5 65 16 128/70 (89) 94 09/20/17 04:00 Room Air 09/20/17 03:37 61 16 93 BiPAP/CPAP 09/20/17 03:36 61 93 21 09/20/17 00:01 36.5 66 16 119/67 (84) 96 09/20/17 00:00 96 Room Air 09/19/17 23:35 68 16 96 Room Air Physical Exam General Appearance: WD/WN, no apparent distress Respiratory/Chest: no respiratory distress, no accessory muscle use, + crackles , + rales, + wheezing Cardiovascular: regular rate, rhythm, no edema, no murmur Abdomen: normal bowel sounds, non tender, soft Extremities: no calf tenderness, + pedal edema Neurologic/Psychiatric: alert, normal mood/affect, oriented x 3 Skin: normal color, warm/dry, no rash Notes: AYAAN; boggy, radiating penile pain Laboratory Results 09/20/17 06:57 09/20/17 06:57 Test 09/20/17 06:57 09/20/17 20:00 Red Blood Count 4.67 M/uL (4.7-6.1) Mean Corpuscular Volume 82.0 fL (80-100) Mean Corpuscular Hemoglobin 30.2 pg (25-34) Mean Corpuscular Hemoglobin Concent 36.8 g/dl (32-36) RDW Standard Deviation 42.7 fL (36.4-46.3) RDW Coefficient of Variation 14.3 % (11.5-14.5) Platelet Estimate DECREASED Activated Partial Thromboplast Time 46.3 SECONDS (21.0-31.0) Partial Thromboplastin Ratio 1.8 Anion Gap 16.0 mmol/L (3-11) Est Creatinine Clear Calc Drug Dose 19.2 ml/min Estimated GFR () 17.3 Estimated GFR (Non- 14.9 BUN/Creatinine Ratio 15.8 (10-20) Calcium Level 8.4 mg/dl (8.5-10.1) Total Bilirubin 1.0 mg/dl (0.2-1) Direct Bilirubin 0.6 mg/dl (0-0.2) Aspartate Amino Transf (AST/SGOT) 55 U/L (15-37) Alanine Aminotransferase (ALT/SGPT) 125 U/L (12-78) Alkaline Phosphatase 754 U/L (45-117) Troponin I 3.830 ng/ml (0-0.045) Total Protein 6.4 gm/dl (6.4-8.2) Albumin 2.7 gm/dl (3.4-5.0) Beta-Hydroxybutyric Acid 1.20 mg/dL (0.2-2.81) Bedside Glucose 166 mg/dl (70-99) Assessment and Plan 6 y/o M Hx CAD - STEMI 01/24/17, combined CHF, HTN, PAF, ESRD - peritoneal dialysis w/history of peritonitis, recent incarcerated ventral hernia requiring surgical resection, recent GI bleed at surgical anastomosis. Following surgery in January the pt had been placed on hemodialysis and then switched back to peritoneal dialysis. 09/20--Despite co-morbidities, the patient is doing well. Pt has bilateral rales and expiratory wheezes. While having a dx of COPD, pt is does not have a home O2 requirement. Will continue abx and steroids. Will reassess patient for DC tomorrow. Continue PD. Patient reports producing urine. Pt c/o urinary retention for the past couple days and has required straight cath. Performed AYAAN and will treat patient for suspected parostitis. Pt continues to be followed by nephro and cards; appreciate recommendations. Acute on Chronic resp failure 2/2 COPD exacerbation - Prednisone 60 mg PO - Continue home meds: Advair and Montelukast, Xopenex - Azithromycin day 2 - Flu negative. 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 Not currently receiving anticoagulation therapy despite a high SUPA due to issues with GI blood loss - cardiology and nephrology consulted ESRD on peritoneal dialysis - Nephrology consulted for peritoneal dialysis - Monitor I/O, daily weights Hyponatremia - Correct for elevated glucose - Caution salt replacement given CHF co-morbidity - Defer management to nephrology - Trend BMP IDDM w/ hypo/hyperglycemia and diabetic neuropathy - HgbA1C 4.0%: (06/06) - Continue insulin pump - Sugars are responding appropriately - BG check ac/hs - Continue gabapentin Restless leg syndrome - Continue Ropinirole Mood - Continue sertraline VTE ppx: - SCDs - subQ hep LEVEL I, FULL CODE History Pt reports improved shortness of breath and nonproductive cough to relative baseline. Urinary retention for second time today requiring straight catheterization for good urination. No h/o similar symptoms previously with duonebs or similar therapy. No apparent urinary symptoms, though a dull ache which worsened with bowel movement. Denies polyuria/dipsia/phagia, RODRÍGUEZ, lightheadedness, palpitations, nausea, worsening fatigue. General Appearance: WD/WN, no apparent distress Respiratory: chest non-tender, no respiratory distress, decreased breath sounds , rhonchi, wheezing Cardiovascular: normal peripheral pulses, regular rate, rhythm, no murmur Gastrointestinal: normal bowel sounds, non tender, soft, no organomegaly, other (rectal examination with boggy, TTP prostate which radiates to the tip of the penis and reproduces complaint) Assessment/Plan 56 y/o male h/o CAD w/ STEMI in 2017, combined CHF, HTN, pAF, ESRD on PD, recent incarcerated ventral hernia requiring repair, recent GI bleed at surgical anastomosis p/w COPD exacerbation, NSTEMI, severe hyperglycemia COPD exacerbation in the setting of asthma/COPD - transition to PO prednisone. Transition to Xopenex neb (avoid anticholinergic). Abx to cipro as below. Continue Advair, singulair. CPAP qHS. Urinary retention likely 2/2 underlying prostatitis - initiate cipro therapy, tamsulosin and t/c sarkar cath if retention remains an issue Elevated troponins - worsening function on echo - cardiology consultation - improving troponin without new sx. Off heparin drip 2/2 recent GIB. Continue rosuvastatin, carvedilol Hyperglycemia in IDDM (06/06 A1c 4) - insulin drip with glycemic c/s to transition to SQ regimen per pharmacy protocol combined CHF - continue furosemide. Statin and B claudia therapy as above. Monitor I/O, daily weights ESRD on PD - nephrology consultation Hyponatremia - trend BMP, corrected sodium ~130 Hypokalemia - mild, likely 2/2 albuterol use HTN - stable - continue present mgmt pAF - not on AC 2/2 GIB per cardiology VTE PPX - SCDs FULL CODE
[2017-09-20] MEDS: ROSUVASTATIN CALCIUM 20 MG TAB PO SCH (20:58)
[2017-09-20] MEDS: ASPIRIN 81 MG ECTAB PO SCH (20:58)
[2017-09-20] MEDS: GABAPENTIN 300 MG CAP PO SCH (20:59)
[2017-09-20] MEDS ORDERED: INSULIN GLARGINE SOLOSTAR 100 UNITS/ML 3 ML PEN SC SCH (21:00)
[2017-09-20] MEDS: MONTELUKAST SOD 10 MG TAB PO SCH (21:00)
[2017-09-20] MEDS ORDERED: NURSING VERBAL MED ORDER ONE (21:00)
[2017-09-20] MEDS: OXYCODONE/ACETAMINOPHEN 5-325 TAB PO SCH (21:20)
[2017-09-20] MEDS: INSULIN GLARGINE SOLOSTAR 100 UNITS/ML 3 ML PEN SC SCH (21:26)
[2017-09-20] MEDS: HEPARIN SOD 5000 UNIT/0.5 ML CARP SQ SCH (21:26)
[2017-09-20] MEDS: SERTRALINE HCL 50 MG TAB PO SCH (22:25)
[2017-09-21] VITALS (9 sets, daily range): BP systolic 111–136; BP diastolic 59–81; PULSE 58–78; TEMP 35.8–36.6; O2SAT 96–98; Ht 162.6 cm; Wt 79.1 kg
[2017-09-21] MEDS: INSULIN ASPART 100 UNITS/ML 3 ML PEN SC SCH ×5 (03:54→20:57)
[2017-09-21 06:39] LABS: MEAN CORPUSCULAR HGB CONC 35.1 g/dl (32-36)
[2017-09-21 06:53] LABS: HEMATOCRIT 42.4 % (42-52); HEMOGLOBIN 14.9 g/dL (14.0-18.0); MEAN CORPUSCULAR HEMOGLOBIN 28.8 pg (25-34); RED CELL DISTRIBUTION WIDTH CV 14.4 % (11.5-14.5); RED CELL DISTRIBUTION WIDTH SD 42.8 fL (36.4-46.3); WHITE BLOOD COUNT 19.45 K/uL (4.8-10.8)
[2017-09-21 07:12] LABS: ALBUMIN 2.8 gm/dl (3.4-5.0); CALCIUM 8.2 mg/dl (8.5-10.1); CREATININE 3.84 mg/dl (0.60-1.40); POTASSIUM 3.8 mmol/L (3.5-5.1)
[2017-09-21 07:15] LABS: TOTAL PROTEIN 6.6 gm/dl (6.4-8.2)
[2017-09-21 07:25] LABS: BASO % 0.1 %; BASO ABS # 0.01 K/uL (0-0.2); IG# 0.06 K/uL (0.00-0.02); LYMPH % 2.3 %; LYMPH ABS # 0.45 K/uL (1.2-3.4); MONO % 3.8 %; MONO ABS # 0.73 K/uL (0.11-0.59); NEUT % 93.5 %; PLATELET COUNT 151 K/uL (130-400)
--- NOTE | 2017-09-21 07:34 | Family Medicine Progress Note ---
Progress Note Date of Service Sep 21, 2017. Subjective Patient is doing well. Patient continues to have urinary retention. Constitutional: No fever, No chills, No sweats Respiratory: + cough, No sputum, No shortness of breath Cardiovascular: No chest pain, No palpitations Abdomen: No pain, No nausea, No vomiting, No diarrhea Male : + dysuria Medications Current Inpatient Medications Medications (Trade) Dose Ordered Sig/Shasha Route Start Time Stop Time Status Last Admin Dose Admin Acetaminophen (Tylenol Tab) 650 mg Q4H PRN PO 09/18/17 22:15 10/18/17 22:14 Al Hydrox/Mg Hydrox/Simethicone (Maalox Max Susp) 15 ml Q4H PRN PO 09/18/17 22:15 10/18/17 22:14 Magnesium Hydroxide (Milk Of Magnesia Susp) 30 ml Q12H PRN PO 09/18/17 22:15 10/18/17 22:14 Ondansetron HCl (Zofran Inj) 4 mg Q6H PRN IV 09/18/17 22:15 10/18/17 22:14 Nitroglycerin (Nitrostat Tab) 0.4 mg UD PRN SL 09/18/17 22:15 10/18/17 22:14 Polyethylene (Miralax Powder Packet) 17 gm DAILY PRN PO 09/18/17 22:15 10/18/17 22:14 Acyclovir (Zovirax Tab) 400 mg BID PO 09/19/17 09:00 09/29/17 08:59 09/21/17 20:51 400 MG Aspirin (Ecotrin Tab) 81 mg QPM PO 09/19/17 21:00 10/19/17 20:59 09/21/17 20:51 81 MG Carvedilol (Coreg Tab) 6.25 mg BID PO 09/19/17 09:00 10/19/17 08:59 09/21/17 20:52 6.25 MG Salmeterol Xinafoate/ Fluticasone (Advair Diskus 250/50 Inh) 1 puff Q12 INH 09/19/17 09:00 10/19/17 08:59 09/21/17 20:53 1 PUFF Furosemide (Lasix Tab) 40 mg BID PO 09/19/17 09:00 10/19/17 08:59 09/21/17 20:50 40 MG Gabapentin (Neurontin Cap) 300 mg HS PO 09/19/17 21:00 10/19/17 20:59 09/21/17 20:50 300 MG Lactulose (Chronulac Syrup) 10 gm DAILY PRN PO 09/18/17 22:15 10/18/17 22:14 Levalbuterol (Xopenex 1.25MG/ 3ML Neb) 1.25 mg TID PRN INH 09/18/17 22:15 10/18/17 22:14 09/20/17 14:48 1.25 MG Lorazepam (Ativan Tab) 0.5 mg BID PRN PO 09/18/17 22:15 10/18/17 22:14 Montelukast Sodium (Singulair Tab) 10 mg QPM PO 09/19/17 21:00 10/19/17 20:59 09/21/17 20:52 10 MG Oxycodone/ Acetaminophen (Percocet 5-325mg Tab) 1 tab HS PO 09/19/17 21:00 10/03/17 20:59 09/21/17 21:03 1 TAB Pantoprazole Sodium (Protonix Tab) 40 mg QAM PO 09/19/17 09:00 10/19/17 08:59 09/21/17 07:49 40 MG Ropinirole HCl (Requip Tab) 2 mg QPM PO 09/19/17 21:00 10/19/17 20:59 09/21/17 20:52 2 MG Ropinirole HCl (Requip Tab) 1 mg QAM PO 09/19/17 09:00 10/19/17 08:59 09/21/17 07:49 1 MG Rosuvastatin Calcium (Crestor Tab) 20 mg HS PO 09/19/17 21:00 10/19/17 20:59 09/21/17 20:50 20 MG Sertraline HCl (Zoloft Tab) 50 mg QPM PO 09/19/17 21:00 10/19/17 20:59 09/21/17 20:52 50 MG Trazodone HCl (Desyrel Tab) 50 mg HS PRN PO 09/18/17 22:15 10/18/17 22:14 Glucose (Glucose 40% Gel) 15-30 GRAMS 15 GRAMS... UD PRN PO 09/18/17 23:15 10/18/17 23:14 Glucose (Glucose Chew Tab) 4-8 Tablets 4 Tabl... UD PRN PO 09/18/17 23:15 10/18/17 23:14 Glucagon (Glucagon Inj) 1 mg UD PRN SQ 09/18/17 23:15 10/18/17 23:14 Dextrose (Dextrose 50% 50ML Syringe) 25-50ML OF 50% DW IV FOR... UD PRN IV 09/18/17 23:15 10/18/17 23:14 Miscellaneous (Iv Fluids Completed) 1 ea PRN PRN N/A 09/19/17 02:30 09/19/18 02:29 Miscellaneous Information (Consult Glycemic Management Pharmacy) 1 ea UD PRN N/A 09/19/17 07:42 10/19/17 07:41 Insulin Aspart (novoLOG ASPART) SLIDING SCALE If CARB RA... ACHS SC 09/19/17 21:00 10/19/17 20:59 Future hold 09/21/17 20:57 4 UNITS Heparin Sodium (Porcine) (Heparin Sq 5000 Unit/0.5ml) 5,000 unit Q12 SQ 09/20/17 21:00 10/20/17 20:59 09/21/17 20:58 5,000 UNIT Prednisone (PredniSONE TAB) 60 mg DAILY PO 09/21/17 09:00 10/21/17 08:59 09/21/17 07:47 60 MG Ciprofloxacin (Ciprofloxacin Tab) 250 mg DAILY PO 09/20/17 11:59 11/02/17 11:58 09/21/17 07:48 250 MG Insulin Glargine (Lantus Solostar Pen) SEE PROTOCOL TEXT BID SC 09/20/17 21:00 10/20/17 20:59 09/21/17 20:57 10 UNITS Tamsulosin HCl (Flomax Cap) 0.4 mg QAM PO 09/21/17 09:00 10/21/17 08:59 09/21/17 07:49 0.4 MG Objective Vital Signs Date Time Temp Pulse Resp B/P (MAP) Pulse Ox O2 Delivery O2 Flow Rate FiO2 09/21/17 20:27 36.5 72 123/75 (91) 09/21/17 20:15 36.4 78 20 133/75 (94) 98 Room Air 09/21/17 20:00 Room Air 09/21/17 16:00 96 Room Air 09/21/17 15:53 36.6 60 20 115/59 (77) 96 Room Air 09/21/17 12:09 36.5 60 20 116/73 (87) 98 Room Air 09/21/17 08:00 36.5 58 18 111/68 (82) 09/21/17 07:54 36.5 58 17 111/68 (82) 98 Room Air 09/21/17 04:54 36.3 69 18 128/73 (91) 97 09/21/17 00:00 98 Room Air 09/21/17 00:00 35.8 64 136/81 (99) 98 CPAP Physical Exam General Appearance: WD/WN, no apparent distress Respiratory/Chest: chest non-tender, no respiratory distress, no accessory muscle use, + crackles, + rales, + wheezing Cardiovascular: regular rate, rhythm, no edema, no gallop Neurologic/Psychiatric: alert, normal mood/affect, oriented x 3 Skin: normal color, warm/dry, no rash Laboratory Results 09/21/17 06:08 Red Blood Count 5.17, Mean Corpuscular Volume 82.0, Mean Corpuscular Hemoglobin 28.8, Mean Corpuscular Hemoglobin Concent 35.1, Neutrophils (%) (Auto) 93.5, Lymphocytes (%) (Auto) 2.3, Monocytes (%) (Auto) 3.8, Eosinophils (%) (Auto) 0.0 , Basophils (%) (Auto) 0.1, Neutrophils # (Auto) 18.20, Lymphocytes # (Auto) 0.45, Monocytes # (Auto) 0.73, Eosinophils # (Auto) 0.00, Basophils # (Auto) 0.01 09/21/17 06:08 Test 09/21/17 06:08 09/21/17 20:14 White Blood Count 19.45 K/uL (4.8-10.8) Red Blood Count 5.17 M/uL (4.7-6.1) Hemoglobin 14.9 g/dL (14.0-18.0) Hematocrit 42.4 % (42-52) Mean Corpuscular Volume 82.0 fL (80-100) Mean Corpuscular Hemoglobin 28.8 pg (25-34) Mean Corpuscular Hemoglobin Concent 35.1 g/dl (32-36) Platelet Count 151 K/uL (130-400) Neutrophils (%) (Auto) 93.5 % Lymphocytes (%) (Auto) 2.3 % Monocytes (%) (Auto) 3.8 % Eosinophils (%) (Auto) 0.0 % Basophils (%) (Auto) 0.1 % Neutrophils # (Auto) 18.20 K/uL (1.4-6.5) Lymphocytes # (Auto) 0.45 K/uL (1.2-3.4) Monocytes # (Auto) 0.73 K/uL (0.11-0.59) Eosinophils # (Auto) 0.00 K/uL (0-0.5) Basophils # (Auto) 0.01 K/uL (0-0.2) RDW Standard Deviation 42.8 fL (36.4-46.3) RDW Coefficient of Variation 14.4 % (11.5-14.5) Immature Granulocyte % (Auto) 0.3 % Immature Granulocyte # (Auto) 0.06 K/uL (0.00-0.02) Platelet Estimate NORMAL Anion Gap 15.0 mmol/L (3-11) Est Creatinine Clear Calc Drug Dose 20.8 ml/min Estimated GFR () 19.1 Estimated GFR (Non- 16.5 BUN/Creatinine Ratio 20.0 (10-20) Calcium Level 8.2 mg/dl (8.5-10.1) Total Bilirubin 0.8 mg/dl (0.2-1) Direct Bilirubin 0.5 mg/dl (0-0.2) Aspartate Amino Transf (AST/SGOT) 42 U/L (15-37) Alanine Aminotransferase (ALT/SGPT) 114 U/L (12-78) Alkaline Phosphatase 748 U/L (45-117) Total Protein 6.6 gm/dl (6.4-8.2) Albumin 2.8 gm/dl (3.4-5.0) Beta-Hydroxybutyric Acid 1.26 mg/dL (0.2-2.81) Bedside Glucose 124 mg/dl (70-99) Assessment and Plan 6 y/o M Hx CAD - STEMI 01/24/17, combined CHF, HTN, PAF, ESRD - peritoneal dialysis w/history of peritonitis, recent incarcerated ventral hernia requiring surgical resection, recent GI bleed at surgical anastomosis. Following surgery in January the pt had been placed on hemodialysis and then switched back to peritoneal dialysis. 2--Despite co-morbidities, the patient is doing well. Pt has bilateral rales and expiratory wheezes. While having a dx of COPD, pt is does not have a home O2 requirement. Will continue abx and steroids. Will reassess patient for DC tomorrow. Continue PD. Patient reports producing urine. Pt c/o urinary retention for the past couple days and has required straight cath. Performed AYAAN and will treat patient for suspected prostatitis. Pt continues to be followed by nephro and cards; appreciate recommendations. Acute on Chronic resp failure 2/2 COPD exacerbation - Prednisone 60 mg PO---> transition to 40mg PO tomorrow - Continue home meds: Advair and Montelukast, Xopenex - Flu negative. 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 Not currently receiving anticoagulation therapy despite a high SUPA due to issues with GI blood loss - cardiology and nephrology consulted ESRD on peritoneal dialysis - Nephrology consulted for peritoneal dialysis - Monitor I/O, daily weights Hyponatremia - Correct for elevated glucose - Caution salt replacement given CHF co-morbidity - Defer management to nephrology - Trend BMP IDDM w/ hypo/hyperglycemia and diabetic neuropathy - HgbA1C 4.0%: (06/06) - Continue insulin pump - Sugars are responding appropriately - BG check ac/hs - Continue gabapentin Restless leg syndrome - Continue Ropinirole Mood - Continue sertraline VTE ppx: - SCDs - subQ hep LEVEL I, FULL CODE History Resident Physician Supervision Note: I was present with Dr. Dangelo during the history and exam. I discussed the case with the resident and agree with the findings and plan as documented in the note. Any exceptions or clarifications are listed here. Pt reports respiratory status has returned to baseline. Chest tightness has resolved. Straight cath x 5 since yesterday despite flomax and cipro. Coming off the insulin drip without symptoms of deranged glucose. General Appearance: WD/WN, no apparent distress Respiratory: chest non-tender, no respiratory distress, decreased breath sounds , rhonchi, wheezing Cardiovascular: normal peripheral pulses, regular rate, rhythm, no murmur, other (trace b/l LE edema) Gastrointestinal: normal bowel sounds, non tender, soft, no organomegaly Assessment/Plan 56 y/o male h/o CAD w/ STEMI in 2017, combined CHF, HTN, pAF, ESRD on PD, recent incarcerated ventral hernia requiring repair, recent GI bleed at surgical anastomosis p/w COPD exacerbation, NSTEMI, severe hyperglycemia COPD exacerbation in the setting of asthma/COPD - PO prednisone. Xopenex neb ( avoid anticholinergic). Coverage w/ cipro. Continue Advair, singulair. CPAP qHS. Urinary retention likely 2/2 underlying prostatitis - urology consultation - continue ciprofloxacin, tamsulosin NSTEMI 2/ demand - worsening function on echo - cardiology consultation - improving troponin without new sx. Off heparin drip 2/2 recent GIB. Continue rosuvastatin, carvedilol Hyperglycemia in IDDM (06/06 A1c 4) - off insulin drip with glycemic c/s transitioned to SQ regimen per pharmacy protocol combined CHF - continue furosemide. Statin and B claudia therapy as above. Monitor I/O, daily weights ESRD on PD - nephrology consultation Hyponatremia - trend BMP, corrected sodium ~130 Hypokalemia - mild, likely 2/2 albuterol use HTN - stable - continue present mgmt pAF - not on AC 2/2 GIB per cardiology VTE PPX - SCDs FULL CODE
[2017-09-21] MEDS: FLUTICASONE/SALMETEROL 250/50 (ADVAIR) 14 PUFF/1 INHALER INH SCH ×2 (07:47→20:53)
[2017-09-21] MEDS: CIPROFLOXACIN 250 MG TAB PO SCH (07:48)
[2017-09-21] MEDS: CARVEDILOL 6.25 MG TAB PO SCH ×2 (07:48→20:52)
[2017-09-21] MEDS: ACYCLOVIR 400 MG TAB PO SCH ×2 (07:48→20:51)
[2017-09-21] MEDS: TAMSULOSIN HCL 0.4 MG CAP PO SCH (07:49)
[2017-09-21] MEDS: PANTOprazole SOD 40 MG TAB PO SCH (07:49)
[2017-09-21] MEDS: ROPINIROLE HCL 1 MG TAB PO SCH ×2 (07:49→20:52)
[2017-09-21] MEDS: FUROSEMIDE 40 MG TAB PO SCH ×2 (07:49→20:50)
[2017-09-21] MEDS: INSULIN GLARGINE SOLOSTAR 100 UNITS/ML 3 ML PEN SC SCH ×2 (07:54→20:57)
[2017-09-21] MEDS: HEPARIN SOD 5000 UNIT/0.5 ML CARP SQ SCH ×2 (07:56→20:58)
--- NOTE | 2017-09-21 09:32 | Nephrology Progress Note ---
Nephrology Progress Note Date of Service Sep 21, 2017. Chief Complaint ESRD Subjective No acute events overnight. Sly tolerated PD without complications. Net UF 1.6 L. Effluent is clear. Abdomen is non tender. Candelario denies shortness of breath. He denies chest pain. No fevers or chills. Urinary retention persists. Candelario has expressed interest in learning to perform self CIC. Review of Systems A complete review of systems was performed. Pertinent positives are noted above. All other systems are negative. Vital Signs Last 8 Hrs Date Time Temp Pulse Resp B/P (MAP) Pulse Ox O2 Delivery O2 Flow Rate FiO2 09/21/17 07:54 36.5 58 17 111/68 (82) 98 Room Air 09/21/17 04:54 36.3 69 18 128/73 (91) 97 Last Recorded Weight Weight (Kilograms): 82.700 Physical Exam General Appearance: WD/WN, no apparent distress Head: normocephalic, atraumatic Eyes: normal inspection, sclerae normal ENT: normal ENT inspection, pharynx normal Neck: supple, + JVD Respiratory/Chest: no respiratory distress, no accessory muscle use, + rhonchi , + wheezing Cardiovascular: regular rate, rhythm, no gallop Abdomen/GI: non tender, soft, + pertinent finding (exit site clean without drainage or erythema) Extremities/Musculoskelatal: normal inspection, no pedal edema Neurologic/Psych: alert, normal mood/affect Family History Cancer Diabetes mellitus Heart disease Hypertension Negative for CKD / ESRD Social History Smoking Status: Former smoker Smokeless Tobacco Use: No Alcohol Use: occasionally Drug Use: none Marital Status: Housing Status: lives with family Occupation: disabled . Medically disabled. Former smoker (quit 2000) Laboratory Results Past 24 Hours 09/21/17 06:08 Red Blood Count 5.17, Mean Corpuscular Volume 82.0, Mean Corpuscular Hemoglobin 28.8, Mean Corpuscular Hemoglobin Concent 35.1, Neutrophils (%) (Auto) 93.5, Lymphocytes (%) (Auto) 2.3, Monocytes (%) (Auto) 3.8, Eosinophils (%) (Auto) 0.0 , Basophils (%) (Auto) 0.1, Neutrophils # (Auto) 18.20, Lymphocytes # (Auto) 0.45, Monocytes # (Auto) 0.73, Eosinophils # (Auto) 0.00, Basophils # (Auto) 0.01 09/21/17 06:08 Test 09/20/17 09:36 09/20/17 10:52 09/20/17 12:26 09/20/17 13:39 Bedside Glucose 243 mg/dl (70-99) 179 mg/dl (70-99) 131 mg/dl (70-99) 109 mg/dl (70-99) Test 09/20/17 14:34 09/20/17 15:11 09/20/17 16:04 09/20/17 17:01 Bedside Glucose 108 mg/dl (70-99) 111 mg/dl (70-99) 135 mg/dl (70-99) 133 mg/dl (70-99) Test 09/20/17 18:04 09/20/17 19:11 09/20/17 20:00 09/20/17 23:44 Bedside Glucose 161 mg/dl (70-99) 190 mg/dl (70-99) 166 mg/dl (70-99) 279 mg/dl (70-99) Test 09/21/17 03:50 09/21/17 06:08 09/21/17 06:25 Bedside Glucose 297 mg/dl (70-99) 285 mg/dl (70-99) White Blood Count 19.45 K/uL (4.8-10.8) Red Blood Count 5.17 M/uL (4.7-6.1) Hemoglobin 14.9 g/dL (14.0-18.0) Hematocrit 42.4 % (42-52) Mean Corpuscular Volume 82.0 fL (80-100) Mean Corpuscular Hemoglobin 28.8 pg (25-34) Mean Corpuscular Hemoglobin Concent 35.1 g/dl (32-36) Platelet Count 151 K/uL (130-400) Neutrophils (%) (Auto) 93.5 % Lymphocytes (%) (Auto) 2.3 % Monocytes (%) (Auto) 3.8 % Eosinophils (%) (Auto) 0.0 % Basophils (%) (Auto) 0.1 % Neutrophils # (Auto) 18.20 K/uL (1.4-6.5) Lymphocytes # (Auto) 0.45 K/uL (1.2-3.4) Monocytes # (Auto) 0.73 K/uL (0.11-0.59) Eosinophils # (Auto) 0.00 K/uL (0-0.5) Basophils # (Auto) 0.01 K/uL (0-0.2) RDW Standard Deviation 42.8 fL (36.4-46.3) RDW Coefficient of Variation 14.4 % (11.5-14.5) Immature Granulocyte % (Auto) 0.3 % Immature Granulocyte # (Auto) 0.06 K/uL (0.00-0.02) Platelet Estimate NORMAL Anion Gap 15.0 mmol/L (3-11) Est Creatinine Clear Calc Drug Dose 20.8 ml/min Estimated GFR () 19.1 Estimated GFR (Non- 16.5 BUN/Creatinine Ratio 20.0 (10-20) Calcium Level 8.2 mg/dl (8.5-10.1) Total Bilirubin 0.8 mg/dl (0.2-1) Direct Bilirubin 0.5 mg/dl (0-0.2) Aspartate Amino Transf (AST/SGOT) 42 U/L (15-37) Alanine Aminotransferase (ALT/SGPT) 114 U/L (12-78) Alkaline Phosphatase 748 U/L (45-117) Total Protein 6.6 gm/dl (6.4-8.2) Albumin 2.8 gm/dl (3.4-5.0) Beta-Hydroxybutyric Acid 1.26 mg/dL (0.2-2.81) Allergies Coded Allergies: Penicillins (Verified Allergy, Severe, HIVES, 09/18/17) BEE STING (Verified Allergy, Intermediate, SWELLING, 09/18/17) DOES NOT REQUIRE EPIPEN PER FAMILY Medications Current Inpatient Medications Medications (Trade) Dose Ordered Sig/Shasha Route Start Time Stop Time Status Last Admin Dose Admin Acetaminophen (Tylenol Tab) 650 mg Q4H PRN PO 09/18/17 22:15 10/18/17 22:14 Al Hydrox/Mg Hydrox/Simethicone (Maalox Max Susp) 15 ml Q4H PRN PO 09/18/17 22:15 10/18/17 22:14 Magnesium Hydroxide (Milk Of Magnesia Susp) 30 ml Q12H PRN PO 09/18/17 22:15 10/18/17 22:14 Ondansetron HCl (Zofran Inj) 4 mg Q6H PRN IV 09/18/17 22:15 10/18/17 22:14 Nitroglycerin (Nitrostat Tab) 0.4 mg UD PRN SL 09/18/17 22:15 10/18/17 22:14 Polyethylene (Miralax Powder Packet) 17 gm DAILY PRN PO 09/18/17 22:15 10/18/17 22:14 Acyclovir (Zovirax Tab) 400 mg BID PO 09/19/17 09:00 09/29/17 08:59 09/21/17 07:48 400 MG Aspirin (Ecotrin Tab) 81 mg QPM PO 09/19/17 21:00 10/19/17 20:59 09/20/17 20:58 81 MG Carvedilol (Coreg Tab) 6.25 mg BID PO 09/19/17 09:00 10/19/17 08:59 09/21/17 07:48 6.25 MG Salmeterol Xinafoate/ Fluticasone (Advair Diskus 250/50 Inh) 1 puff Q12 INH 09/19/17 09:00 10/19/17 08:59 09/21/17 07:47 1 PUFF Furosemide (Lasix Tab) 40 mg BID PO 09/19/17 09:00 10/19/17 08:59 09/21/17 07:49 40 MG Gabapentin (Neurontin Cap) 300 mg HS PO 09/19/17 21:00 10/19/17 20:59 09/20/17 20:59 300 MG Lactulose (Chronulac Syrup) 10 gm DAILY PRN PO 09/18/17 22:15 10/18/17 22:14 Levalbuterol (Xopenex 1.25MG/ 3ML Neb) 1.25 mg TID PRN INH 09/18/17 22:15 10/18/17 22:14 09/20/17 14:48 1.25 MG Lorazepam (Ativan Tab) 0.5 mg BID PRN PO 09/18/17 22:15 10/18/17 22:14 Montelukast Sodium (Singulair Tab) 10 mg QPM PO 09/19/17 21:00 10/19/17 20:59 09/20/17 21:00 10 MG Oxycodone/ Acetaminophen (Percocet 5-325mg Tab) 1 tab HS PO 09/19/17 21:00 10/03/17 20:59 09/20/17 21:20 1 TAB Pantoprazole Sodium (Protonix Tab) 40 mg QAM PO 09/19/17 09:00 10/19/17 08:59 09/21/17 07:49 40 MG Ropinirole HCl (Requip Tab) 2 mg QPM PO 09/19/17 21:00 10/19/17 20:59 09/20/17 21:00 2 MG Ropinirole HCl (Requip Tab) 1 mg QAM PO 09/19/17 09:00 10/19/17 08:59 09/21/17 07:49 1 MG Rosuvastatin Calcium (Crestor Tab) 20 mg HS PO 09/19/17 21:00 10/19/17 20:59 09/20/17 20:58 20 MG Sertraline HCl (Zoloft Tab) 50 mg QPM PO 09/19/17 21:00 10/19/17 20:59 09/20/17 22:25 50 MG Trazodone HCl (Desyrel Tab) 50 mg HS PRN PO 09/18/17 22:15 10/18/17 22:14 Glucose (Glucose 40% Gel) 15-30 GRAMS 15 GRAMS... UD PRN PO 09/18/17 23:15 10/18/17 23:14 Glucose (Glucose Chew Tab) 4-8 Tablets 4 Tabl... UD PRN PO 09/18/17 23:15 10/18/17 23:14 Glucagon (Glucagon Inj) 1 mg UD PRN SQ 09/18/17 23:15 10/18/17 23:14 Dextrose (Dextrose 50% 50ML Syringe) 25-50ML OF 50% DW IV FOR... UD PRN IV 09/18/17 23:15 10/18/17 23:14 Miscellaneous (Iv Fluids Completed) 1 ea PRN PRN N/A 09/19/17 02:30 09/19/18 02:29 Miscellaneous Information (Consult Glycemic Management Pharmacy) 1 ea UD PRN N/A 09/19/17 07:42 10/19/17 07:41 Insulin Aspart (novoLOG ASPART) SLIDING SCALE If CARB RA... ACHS SC 09/19/17 21:00 10/19/17 20:59 Future hold 09/21/17 07:53 11 UNITS Heparin Sodium (Porcine) (Heparin Sq 5000 Unit/0.5ml) 5,000 unit Q12 SQ 09/20/17 21:00 10/20/17 20:59 09/21/17 07:56 5,000 UNIT Prednisone (PredniSONE TAB) 60 mg DAILY PO 09/21/17 09:00 10/21/17 08:59 09/21/17 07:47 60 MG Ciprofloxacin (Ciprofloxacin Tab) 250 mg DAILY PO 09/20/17 11:59 11/02/17 11:58 09/21/17 07:48 250 MG Insulin Glargine (Lantus Solostar Pen) SEE PROTOCOL TEXT BID SC 09/20/17 21:00 10/20/17 20:59 09/21/17 07:54 20 UNITS Tamsulosin HCl (Flomax Cap) 0.4 mg QAM PO 09/21/17 09:00 10/21/17 08:59 09/21/17 07:49 0.4 MG Impression (1) ESRD on peritoneal dialysis (2) COPD exacerbation (3) Ischemic cardiomyopathy (4) Hyponatremia Mr. Caro was admitted for COPD exacerbation, CHF, hyponatremia and NSTEMI. Hospitalization complicated by hyperglycemia and metabolic acidosis. He has ESRD due to cardiorenal syndrome and is on NCCPD therapy (4 exchanges / night, 2 L fill volume, 1.5% mixed w/ 2.5% Delflex. Fill 10/dwell 100/drain 20) . PMH - ESRD due to diabetic nephropathy, hypertensive nephrosclerosis and advanced ICM. [employer]ER started 09/02. Transitioned to NCCPD 01/31. Incarcerated hernia requiring back up IHD 01/04. Patient resumed NCCPD 05/07. 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 Jean Marie Gray / [facility] [place]) , ASCVD s/p CABG x 2 2005. COPD, ROBERT Recommendations END STAGE RENAL DISEASE: -- Volume status appears acceptable -- Continue 2.5% Delflex exchanges URINARY RETENTION: -- Straight cath PRN. Patient has expressed interest in learning self CIC. -- Flomax started yesterday. ASCVD: -- Cardiology consultation appreciated COPD: -- Improving with treatment
--- NOTE | 2017-09-21 10:50 | Cardiology Follow-Up ---
Subjective General Date of Service: Sep 21, 2017. Chief Complaint: follow up NSTEMI Pt evaluation today including: conversation w/ patient, physical exam History of Present Illness The patient is a 57 year old male seen in follow up. He feels well with the exception of urinary retention. Denies angina. Telemetry reveals stable SR. Allergies Coded Allergies: Penicillins (Verified Allergy, Severe, HIVES, 09/18/17) BEE STING (Verified Allergy, Intermediate, SWELLING, 09/18/17) DOES NOT REQUIRE EPIPEN PER FAMILY Social History Smoking Status: Former Smoker (occasional cigar usage) Hx Tobacco Use In Past Year?: Yes Hx Alcohol Use - Type And Amou: No Hx Substance Use - Type And Am: Yes Problem List Medical Problems: (1) Acute coronary syndrome Status: Acute (2) Acute lower GI bleeding Status: Acute (3) Anemia Status: Acute (4) Bradycardia Status: Acute (5) Chest pressure Status: Acute (6) COPD exacerbation Status: Acute (7) Diabetes mellitus Status: Acute (8) Dialysis-associated peritonitis Status: Acute (9) Elevated troponin Status: Acute (10) Elevated troponin I level Status: Acute (11) Flank pain Status: Acute (12) History of coronary artery disease Status: Acute (13) Hyperglycemia Status: Acute (14) Hyperglycemia Status: Acute (15) Hyponatremia Status: Acute (16) Near syncope Status: Acute (17) Palpitations Status: Acute (18) Peritoneal dialysis catheter in place Status: Acute (19) SBO (small bowel obstruction) Status: Acute (20) STEMI (ST elevation myocardial infarction) Status: Acute (21) Substernal chest pain Status: Acute (22) Symptomatic anemia Status: Acute (23) Ventral hernia Status: Acute Physical Exam Vital Signs Last Vital Signs Documentation Date Time Temp Pulse Resp B/P (MAP) Pulse Ox O2 Delivery O2 Flow Rate FiO2 09/21/17 07:54 36.5 58 17 111/68 (82) 98 Room Air 09/20/17 03:36 21 09/19/17 19:09 8.0 Physical Exam Constitutional: Level of Distress: NAD Neck: supple, trachea midline Lungs: Auscultation: pertinent finding (wheezing bilateral apex, mid lung, improved ) Cardiovascular: Heart Auscultation: RRR, no murmurs, no rubs Extremities: no edema Neurologic: Gait & Station: pertinent finding (no focal deficits ) Assessment and Plan Assessment and Plan ASSESSMENT: 1. Acute on chronic respiratory failure secondary to COPD exacerbation, possibly underlying viral illness 2. NSTEMI. Mycardial necrosis documented with elevation of troponin, EKG change , however no recent angina. 3. Ischemic cardiomyopathy , severe LV systolic dysfunction, mid / distal anterior wall more hypokinetic than prior echo 4. S/P dual chamber ICD 07/2017 5. History of GI bleed following small bowel obstruction/hernia repair in January 2017. PLAN: Patient has longstanding history of recurrent NSTEMI espisodes in the setting of severe underlying CAD that have occurred with episodes of respiratory illness , or anemia. My impression is that his troponin represents demand ischemia in the setting of fixed , longstanding, severe CAD. Continue ASA, coreg, Crestor , oral furosemide. Stable from cardiac perspective for DC when primary service feels lung status is stable and able to void. Transition to SQ heparin for DVT prophylaxis. Laboratory Results Last 24 Hours Test 09/20/17 10:52 09/20/17 12:26 09/20/17 13:39 09/20/17 14:34 Bedside Glucose 179 mg/dl 131 mg/dl 109 mg/dl 108 mg/dl Test 09/20/17 15:11 09/20/17 16:04 09/20/17 17:01 09/20/17 18:04 Bedside Glucose 111 mg/dl 135 mg/dl 133 mg/dl 161 mg/dl Test 09/20/17 19:11 09/20/17 20:00 09/20/17 23:44 09/21/17 03:50 Bedside Glucose 190 mg/dl 166 mg/dl 279 mg/dl 297 mg/dl Test 09/21/17 06:08 09/21/17 06:25 White Blood Count 19.45 K/uL Red Blood Count 5.17 M/uL Hemoglobin 14.9 g/dL Hematocrit 42.4 % Mean Corpuscular Volume 82.0 fL Mean Corpuscular Hemoglobin 28.8 pg Mean Corpuscular Hemoglobin Concent 35.1 g/dl Platelet Count 151 K/uL Neutrophils (%) (Auto) 93.5 % Lymphocytes (%) (Auto) 2.3 % Monocytes (%) (Auto) 3.8 % Eosinophils (%) (Auto) 0.0 % Basophils (%) (Auto) 0.1 % Neutrophils # (Auto) 18.20 K/uL Lymphocytes # (Auto) 0.45 K/uL Monocytes # (Auto) 0.73 K/uL Eosinophils # (Auto) 0.00 K/uL Basophils # (Auto) 0.01 K/uL RDW Standard Deviation 42.8 fL RDW Coefficient of Variation 14.4 % Immature Granulocyte % (Auto) 0.3 % Immature Granulocyte # (Auto) 0.06 K/uL Platelet Estimate NORMAL Sodium Level 124 mmol/L Potassium Level 3.8 mmol/L Chloride Level 90 mmol/L Carbon Dioxide Level 20 mmol/L Anion Gap 15.0 mmol/L Blood Urea Nitrogen 77 mg/dl Creatinine 3.84 mg/dl Est Creatinine Clear Calc Drug Dose 20.8 ml/min Estimated GFR () 19.1 Estimated GFR (Non- 16.5 BUN/Creatinine Ratio 20.0 Random Glucose 320 mg/dl Calcium Level 8.2 mg/dl Total Bilirubin 0.8 mg/dl Direct Bilirubin 0.5 mg/dl Aspartate Amino Transf (AST/SGOT) 42 U/L Alanine Aminotransferase (ALT/SGPT) 114 U/L Alkaline Phosphatase 748 U/L Total Protein 6.6 gm/dl Albumin 2.8 gm/dl Beta-Hydroxybutyric Acid 1.26 mg/dL Bedside Glucose 285 mg/dl
--- NOTE | 2017-09-21 15:40 | Urology Consultation ---
History General Date of Service: Sep 21, 2017. Chief Complaint: urinary retention Primary Care Physician: Arielle Whittaker MD Pt seen a urologist before?: No History of Present Illness 57 yo male with hx of CAD, IDDM, and ESRD admitted for exacerbation of COPD. consulted for urinary retention. The pt has required intermittent straight cath while inpatient. Currently he reports he voided 275ml on his own around 1330, and another 250ml 45 minutes later. He reports some dysuria, and per Dr. Alcantar's report had a boggy prostate on exam with pain radiating to tip of penis. He has been started on a 6 week course of Cipro 250mg BID. Tamsulosin has been initiated for UR as well. Pt denies any gross hematuria. The pt reports a hx of UR after CABG in 2005. States he has been voiding fairly well on his own since that time. Denies any urgency or frequency. Occasional hesitancy and weak stream. Laboratory Last 24 Hours Test 09/20/17 16:04 09/20/17 17:01 09/20/17 18:04 09/20/17 19:11 Bedside Glucose 135 mg/dl 133 mg/dl 161 mg/dl 190 mg/dl Test 09/20/17 20:00 09/20/17 23:44 09/21/17 03:50 09/21/17 06:08 Bedside Glucose 166 mg/dl 279 mg/dl 297 mg/dl White Blood Count 19.45 K/uL Red Blood Count 5.17 M/uL Hemoglobin 14.9 g/dL Hematocrit 42.4 % Mean Corpuscular Volume 82.0 fL Mean Corpuscular Hemoglobin 28.8 pg Mean Corpuscular Hemoglobin Concent 35.1 g/dl Platelet Count 151 K/uL Neutrophils (%) (Auto) 93.5 % Lymphocytes (%) (Auto) 2.3 % Monocytes (%) (Auto) 3.8 % Eosinophils (%) (Auto) 0.0 % Basophils (%) (Auto) 0.1 % Neutrophils # (Auto) 18.20 K/uL Lymphocytes # (Auto) 0.45 K/uL Monocytes # (Auto) 0.73 K/uL Eosinophils # (Auto) 0.00 K/uL Basophils # (Auto) 0.01 K/uL RDW Standard Deviation 42.8 fL RDW Coefficient of Variation 14.4 % Immature Granulocyte % (Auto) 0.3 % Immature Granulocyte # (Auto) 0.06 K/uL Platelet Estimate NORMAL Sodium Level 124 mmol/L Potassium Level 3.8 mmol/L Chloride Level 90 mmol/L Carbon Dioxide Level 20 mmol/L Anion Gap 15.0 mmol/L Blood Urea Nitrogen 77 mg/dl Creatinine 3.84 mg/dl Est Creatinine Clear Calc Drug Dose 20.8 ml/min Estimated GFR () 19.1 Estimated GFR (Non- 16.5 BUN/Creatinine Ratio 20.0 Random Glucose 320 mg/dl Calcium Level 8.2 mg/dl Total Bilirubin 0.8 mg/dl Direct Bilirubin 0.5 mg/dl Aspartate Amino Transf (AST/SGOT) 42 U/L Alanine Aminotransferase (ALT/SGPT) 114 U/L Alkaline Phosphatase 748 U/L Total Protein 6.6 gm/dl Albumin 2.8 gm/dl Beta-Hydroxybutyric Acid 1.26 mg/dL Test 09/21/17 06:25 09/21/17 10:42 Bedside Glucose 285 mg/dl 144 mg/dl Problem List Medical Problems: (1) Acute coronary syndrome Status: Acute (2) Acute lower GI bleeding Status: Acute (3) Anemia Status: Acute (4) Bradycardia Status: Acute (5) Chest pressure Status: Acute (6) COPD exacerbation Status: Acute (7) Diabetes mellitus Status: Acute (8) Dialysis-associated peritonitis Status: Acute (9) Elevated troponin Status: Acute (10) Elevated troponin I level Status: Acute (11) Flank pain Status: Acute (12) History of coronary artery disease Status: Acute (13) Hyperglycemia Status: Acute (14) Hyperglycemia Status: Acute (15) Hyponatremia Status: Acute (16) Near syncope Status: Acute (17) Palpitations Status: Acute (18) Peritoneal dialysis catheter in place Status: Acute (19) SBO (small bowel obstruction) Status: Acute (20) STEMI (ST elevation myocardial infarction) Status: Acute (21) Substernal chest pain Status: Acute (22) Symptomatic anemia Status: Acute (23) Ventral hernia Status: Acute Past History asthma, COPD, coronary artery disease, diabetes (IDDM), heart disease, hypertension, myocardial infarction, renal disease, other (ROBERT) Past Surgical History: bowel resection, cholecystectomy, coronary bypass surgery (X 2 2005), other (hernia repair, CAPD catheter placed 12/31) Family History Cancer Diabetes mellitus Heart disease Hypertension Social History Hx Tobacco Use In Past Year?: Yes Smoking: other (former smoker; occasional cigar use) Alcohol: never Drug use: none Marital status: Housing status: lives with family Occupation status: disabled Immunizations History of Influenza Vaccine: Yes Influenza Vaccine Date: May 10, 2012 History of Tetanus Vaccine?: Yes Tetanus Immunization Date: May 08, 2006 History of Pneumococcal: Yes Pneumococcal Date: May 10, 2006 History of Hepatitis B Vaccine: Yes History of MDRO No Allergies Coded Allergies: Penicillins (Verified Allergy, Severe, HIVES, 09/18/17) BEE STING (Verified Allergy, Intermediate, SWELLING, 09/18/17) DOES NOT REQUIRE EPIPEN PER FAMILY Medications Home Medications: Home Meds and Scripts Medications Dose Route/Sig Max Daily Dose Days Date Category Dose Instructions Coreg (Carvedilol) 6.25 Mg Tab 6.25 Mg PO BID 08/01/17 Reported Neurontin (Gabapentin) 300 Mg Cap 300 Mg PO HS 05/21/17 Reported Lasix (Furosemide) 40 Mg Tab 40 Mg PO BID 05/21/17 Reported Miralax (Polyethylene Glycol 3350) 1 Pow Pow 17 Gm PO DAILY PRN 02/03/17 Reported Prorenal Qd (Multiple Vitamins W/ Minerals) 1 Cap Cap 1 Cap PO QAM 01/11/17 Reported Crestor (Rosuvastatin Calcium) 20 Mg Tab 20 Mg PO HS 01/11/17 Reported Zofran (Ondansetron HCl) 4 Mg Tab 4 Mg PO Q6H PRN 01/11/17 Reported Chronulac (Lactulose) 10 Gm/15 Ml Syrp 1 Dose PO DIRECTED PRN 01/11/17 Reported Trazodone (Trazodone HCl) 50 Mg Tab 50 Mg PO HS PRN 01/11/17 Reported Requip (Ropinirole HCl) 1 Mg Tab 2 Mg PO QPM 01/11/17 Reported Proair Respiclick (Albuterol Sulfate) 108 Mcg/Act Aer 2 Puffs INH QAM PRN 01/11/17 Reported Requip (Ropinirole Hydrochloride) 1 Mg Tab 1 Mg PO QAM 01/11/17 Reported novoLOG INSULIN PUMP (Insulin Aspart) 1 Ea Inj 1 Ea N/A UD 01/11/17 Reported Percocet 5MG/325MG (Oxycodone/Acetaminophen) Tab 1 Tablet PO HS 3/20/15 Reported Aspirin Ec (Aspirin) 81 Mg Tab 81 Mg PO QPM 11/07/14 Reported Nitrostat (Nitroglycerin) 0.4 Mg Tab 0.4 Mg UT UD PRN 09/29/[address] ONE TABLET UNDER THE TONGUE EVERY 5 MINUTES FOR UP TO 3 DOSES IF NEEDED FOR CHEST PAIN. Advair Diskus 250/50 60 Dose (Fluticasone Prop/Salmeterol) 1 Ea Aerp 1 Puff INH Q12 09/29/14 Reported Levalbuterol HCl (Levalbuterol) 1.25 Mg/3 Ml Nebu 1 Vial NEB TID PRN 09/29/14 Reported Pantoprazole Sodium (Pantoprazole) 40 Mg Tab 40 Mg PO QAM 09/29/14 Reported Acyclovir 400 Mg Tab 400 Mg PO BID 09/29/14 Reported Montelukast Sodium (Montelukast Sod) 10 Mg Tab 10 Mg PO QPM 09/29/14 Reported Sertraline HCl 50 Mg Tab 50 Mg PO QPM 09/29/14 Reported Glucagon Emergency Kit (Glucagon) 1 Mg Kit 1 Dose INJ UD PRN 06/10/14 Reported Ativan (Lorazepam) 1 Mg Tab 0.5-1 Mg PO BID PRN 08/24/12 Reported Inpatient Medications: Current Inpatient Medications Medications (Trade) Dose Ordered Sig/Shasha Route Start Time Stop Time Status Last Admin Dose Admin Acetaminophen (Tylenol Tab) 650 mg Q4H PRN PO 09/18/17 22:15 10/18/17 22:14 Al Hydrox/Mg Hydrox/Simethicone (Maalox Max Susp) 15 ml Q4H PRN PO 09/18/17 22:15 10/18/17 22:14 Magnesium Hydroxide (Milk Of Magnesia Susp) 30 ml Q12H PRN PO 09/18/17 22:15 10/18/17 22:14 Ondansetron HCl (Zofran Inj) 4 mg Q6H PRN IV 09/18/17 22:15 10/18/17 22:14 Nitroglycerin (Nitrostat Tab) 0.4 mg UD PRN SL 09/18/17 22:15 10/18/17 22:14 Polyethylene (Miralax Powder Packet) 17 gm DAILY PRN PO 09/18/17 22:15 10/18/17 22:14 Acyclovir (Zovirax Tab) 400 mg BID PO 09/19/17 09:00 09/29/17 08:59 09/21/17 07:48 400 MG Aspirin (Ecotrin Tab) 81 mg QPM PO 09/19/17 21:00 10/19/17 20:59 09/20/17 20:58 81 MG Carvedilol (Coreg Tab) 6.25 mg BID PO 09/19/17 09:00 10/19/17 08:59 09/21/17 07:48 6.25 MG Salmeterol Xinafoate/ Fluticasone (Advair Diskus 250/50 Inh) 1 puff Q12 INH 09/19/17 09:00 10/19/17 08:59 09/21/17 07:47 1 PUFF Furosemide (Lasix Tab) 40 mg BID PO 09/19/17 09:00 10/19/17 08:59 09/21/17 07:49 40 MG Gabapentin (Neurontin Cap) 300 mg HS PO 09/19/17 21:00 10/19/17 20:59 09/20/17 20:59 300 MG Lactulose (Chronulac Syrup) 10 gm DAILY PRN PO 09/18/17 22:15 10/18/17 22:14 Levalbuterol (Xopenex 1.25MG/ 3ML Neb) 1.25 mg TID PRN INH 09/18/17 22:15 10/18/17 22:14 09/20/17 14:48 1.25 MG Lorazepam (Ativan Tab) 0.5 mg BID PRN PO 09/18/17 22:15 10/18/17 22:14 Montelukast Sodium (Singulair Tab) 10 mg QPM PO 09/19/17 21:00 10/19/17 20:59 09/20/17 21:00 10 MG Oxycodone/ Acetaminophen (Percocet 5-325mg Tab) 1 tab HS PO 09/19/17 21:00 10/03/17 20:59 09/20/17 21:20 1 TAB Pantoprazole Sodium (Protonix Tab) 40 mg QAM PO 09/19/17 09:00 10/19/17 08:59 09/21/17 07:49 40 MG Ropinirole HCl (Requip Tab) 2 mg QPM PO 09/19/17 21:00 10/19/17 20:59 09/20/17 21:00 2 MG Ropinirole HCl (Requip Tab) 1 mg QAM PO 09/19/17 09:00 10/19/17 08:59 09/21/17 07:49 1 MG Rosuvastatin Calcium (Crestor Tab) 20 mg HS PO 09/19/17 21:00 10/19/17 20:59 09/20/17 20:58 20 MG Sertraline HCl (Zoloft Tab) 50 mg QPM PO 09/19/17 21:00 10/19/17 20:59 09/20/17 22:25 50 MG Trazodone HCl (Desyrel Tab) 50 mg HS PRN PO 09/18/17 22:15 10/18/17 22:14 Glucose (Glucose 40% Gel) 15-30 GRAMS 15 GRAMS... UD PRN PO 09/18/17 23:15 10/18/17 23:14 Glucose (Glucose Chew Tab) 4-8 Tablets 4 Tabl... UD PRN PO 09/18/17 23:15 10/18/17 23:14 Glucagon (Glucagon Inj) 1 mg UD PRN SQ 09/18/17 23:15 10/18/17 23:14 Dextrose (Dextrose 50% 50ML Syringe) 25-50ML OF 50% DW IV FOR... UD PRN IV 09/18/17 23:15 10/18/17 23:14 Miscellaneous (Iv Fluids Completed) 1 ea PRN PRN N/A 09/19/17 02:30 09/19/18 02:29 Miscellaneous Information (Consult Glycemic Management Pharmacy) 1 ea UD PRN N/A 09/19/17 07:42 10/19/17 07:41 Insulin Aspart (novoLOG ASPART) SLIDING SCALE If CARB RA... ACHS SC 09/19/17 21:00 10/19/17 20:59 Future hold 09/21/17 12:15 5 UNITS Heparin Sodium (Porcine) (Heparin Sq 5000 Unit/0.5ml) 5,000 unit Q12 SQ 09/20/17 21:00 10/20/17 20:59 09/21/17 07:56 5,000 UNIT Prednisone (PredniSONE TAB) 60 mg DAILY PO 09/21/17 09:00 10/21/17 08:59 09/21/17 07:47 60 MG Ciprofloxacin (Ciprofloxacin Tab) 250 mg DAILY PO 09/20/17 11:59 11/02/17 11:58 09/21/17 07:48 250 MG Insulin Glargine (Lantus Solostar Pen) SEE PROTOCOL TEXT BID SC 09/20/17 21:00 10/20/17 20:59 09/21/17 07:54 20 UNITS Tamsulosin HCl (Flomax Cap) 0.4 mg QAM PO 09/21/17 09:00 10/21/17 08:59 09/21/17 07:49 0.4 MG Review of Systems Review of Systems Constitutional: No fever, No chills Eyes: No double vision Neurological: No dizzy Endocrine: No excessive thirst Gastrointestinal: No abdominal pain, No nausea, No vomiting Cardiovascular: No chest pain Respiratory: No shortness of breath Skin: No rash Musculoskeletal: No back pain Male : + painful urination, + urinary retention, No blood in urine Physical Exam Vital Signs: Vital Signs Past 12 Hours Date Time Temp Pulse Resp B/P (MAP) Pulse Ox O2 Delivery O2 Flow Rate FiO2 09/21/17 12:09 36.5 60 20 116/73 (87) 98 Room Air 09/21/17 08:00 36.5 58 18 111/68 (82) 09/21/17 07:54 36.5 58 17 111/68 (82) 98 Room Air 09/21/17 04:54 36.3 69 18 128/73 (91) 97 Physical Exam: General Appearance: no apparent distress Eyes: bilateral eyes normal inspection ENT: hearing grossly normal Neck: no JVD Respiratory/Chest: no respiratory distress, no accessory muscle use Cardiovascular: no JVD Extremities: normal inspection Neurologic/Psychiatric: alert, normal mood/affect, oriented x 3 Skin: normal color Assessment & Plan Assessment & Plan A/P: Incomplete bladder emptying Likely r/t BPH. Pt now voiding on his own. Will check bladder scans qshift. Place sarkar catheter for PVR >250ml. Continue tamsulosin. ? prostatitis. Boggy prostate with pain radiating to penis on AYAAN per Dr. Alcantar. Will send a UC&S. Continue Cipro 250mg BID x 4 weeks to treat for possible prostatitis. Thanks for the consult. Will continue to follow along with primary service. Pt appears to be voiding now but would have him f/u after this w urology . Agree w above .Chauncey Andrew
[2017-09-21] MEDS: GABAPENTIN 300 MG CAP PO SCH (20:50)
[2017-09-21] MEDS: ROSUVASTATIN CALCIUM 20 MG TAB PO SCH (20:50)
[2017-09-21] MEDS: ASPIRIN 81 MG ECTAB PO SCH (20:51)
[2017-09-21] MEDS: SERTRALINE HCL 50 MG TAB PO SCH (20:52)
[2017-09-21] MEDS: MONTELUKAST SOD 10 MG TAB PO SCH (20:52)
[2017-09-21] MEDS: OXYCODONE/ACETAMINOPHEN 5-325 TAB PO SCH (21:03)
[2017-09-22] VITALS: BP 128/78; PULSE 61; TEMP 36.9; O2SAT 98
[2017-09-22 03:26] VITALS: BP 136/77; PULSE 60; TEMP 36.4; O2SAT 95
[2017-09-22 05:44] LABS: HEMATOCRIT 41.5 % (42-52); HEMOGLOBIN 14.8 g/dL (14.0-18.0); IG# 0.05 K/uL (0.00-0.02); LYMPH % 3.4 %; LYMPH ABS # 0.49 K/uL (1.2-3.4); MEAN CORPUSCULAR HEMOGLOBIN 29.2 pg (25-34); MEAN CORPUSCULAR HGB CONC 35.7 g/dl (32-36); MEAN PLATELET VOLUME 13.4 fL (7.4-10.4); MONO % 6.4 %; MONO ABS # 0.93 K/uL (0.11-0.59); NEUT % 89.9 %; NEUT ABS # 13.06 K/uL (1.4-6.5); PLATELET COUNT 153 K/uL (130-400); RED CELL DISTRIBUTION WIDTH CV 14.5 % (11.5-14.5); RED CELL DISTRIBUTION WIDTH SD 42.9 fL (36.4-46.3); WHITE BLOOD COUNT 14.53 K/uL (4.8-10.8)
[2017-09-22 06:14] LABS: ALBUMIN 2.7 gm/dl (3.4-5.0); CREATININE 3.48 mg/dl (0.60-1.40); POTASSIUM 3.4 mmol/L (3.5-5.1)
[2017-09-22 06:16] LABS: TOTAL PROTEIN 6.3 gm/dl (6.4-8.2)
--- NOTE | 2017-09-22 07:16 | Family Medicine Progress Note ---
Progress Note Date of Service Sep 22, 2017.
[2017-09-22 08:06] VITALS: BP 121/73; PULSE 60; TEMP 36.4; O2SAT 98
[2017-09-22 08:10] VITALS: BP 121/73; PULSE 60; TEMP 36.4
[2017-09-22] MEDS: INSULIN ASPART 100 UNITS/ML 3 ML PEN SC SCH (08:23)
[2017-09-22] MEDS: HEPARIN SOD 5000 UNIT/0.5 ML CARP SQ SCH (08:24)
[2017-09-22] MEDS: INSULIN GLARGINE SOLOSTAR 100 UNITS/ML 3 ML PEN SC SCH (08:24)
[2017-09-22] MEDS: FLUTICASONE/SALMETEROL 250/50 (ADVAIR) 14 PUFF/1 INHALER INH SCH (08:25)
[2017-09-22] MEDS: TAMSULOSIN HCL 0.4 MG CAP PO SCH (08:26)
[2017-09-22] MEDS: CIPROFLOXACIN 250 MG TAB PO SCH (08:26)
[2017-09-22] MEDS: FUROSEMIDE 40 MG TAB PO SCH (08:26)
[2017-09-22] MEDS: PANTOprazole SOD 40 MG TAB PO SCH (08:26)
[2017-09-22] MEDS: ACYCLOVIR 400 MG TAB PO SCH (08:27)
[2017-09-22] MEDS: CARVEDILOL 6.25 MG TAB PO SCH (08:27)
[2017-09-22] MEDS: ROPINIROLE HCL 1 MG TAB PO SCH (08:27)
--- NOTE | 2017-09-22 09:06 | Progress Note ---
Subjective Date of Service: Sep 22, 2017. Subjective Pt evaluation today including: conversation w/ patient, chart review, lab review Voiding: no voiding problems Pt continues to void on own this morning. PVR this morning <100ml. Occasional dysuria, but otherwise feels well. Problem List Medical Problems: (1) Acute coronary syndrome Status: Acute (2) Acute lower GI bleeding Status: Acute (3) Anemia Status: Acute (4) Bradycardia Status: Acute (5) Chest pressure Status: Acute (6) COPD exacerbation Status: Acute (7) Diabetes mellitus Status: Acute (8) Dialysis-associated peritonitis Status: Acute (9) Elevated troponin Status: Acute (10) Elevated troponin I level Status: Acute (11) Flank pain Status: Acute (12) History of coronary artery disease Status: Acute (13) Hyperglycemia Status: Acute (14) Hyperglycemia Status: Acute (15) Hyponatremia Status: Acute (16) Near syncope Status: Acute (17) Palpitations Status: Acute (18) Peritoneal dialysis catheter in place Status: Acute (19) SBO (small bowel obstruction) Status: Acute (20) STEMI (ST elevation myocardial infarction) Status: Acute (21) Substernal chest pain Status: Acute (22) Symptomatic anemia Status: Acute (23) Ventral hernia Status: Acute Review of Systems Constitutional: No fever, No chills Respiratory: No shortness of breath Cardiac: No chest pain Abdomen: No pain, No nausea, No vomiting Male : No dysuria, No hematuria Heme: No abnormal bleeding/bruising Objective Vital Signs Date Time Temp Pulse Resp B/P (MAP) Pulse Ox O2 Delivery O2 Flow Rate FiO2 09/22/17 08:10 36.4 60 18 121/73 (89) 09/22/17 08:06 36.4 60 18 121/73 (89) 98 Room Air 09/22/17 04:00 Room Air 09/22/17 03:26 36.4 60 18 136/77 (96) 95 BiPAP 09/22/17 00:00 36.9 61 128/78 (95) 98 Room Air 09/22/17 00:00 98 Room Air 09/21/17 20:27 36.5 72 123/75 (91) 09/21/17 20:15 36.4 78 20 133/75 (94) 98 Room Air 09/21/17 20:00 Room Air 09/21/17 16:00 96 Room Air 09/21/17 15:53 36.6 60 20 115/59 (77) 96 Room Air 09/21/17 12:09 36.5 60 20 116/73 (87) 98 Room Air Physical Exam General Appearance: no apparent distress Eyes: normal inspection ENT: hearing grossly normal Neck: no JVD Respiratory/Chest: no respiratory distress, no accessory muscle use Cardiovascular: no JVD Extremities: normal inspection Neurologic/Psychiatric: alert, normal mood/affect, oriented x 3 Skin: normal color Laboratory Results Last 24 Hours Test 09/21/17 10:42 09/21/17 16:29 09/21/17 20:14 09/22/17 00:27 Bedside Glucose 144 mg/dl 153 mg/dl 124 mg/dl 250 mg/dl Test 09/22/17 04:54 09/22/17 07:07 White Blood Count 14.53 K/uL Red Blood Count 5.06 M/uL Hemoglobin 14.8 g/dL Hematocrit 41.5 % Mean Corpuscular Volume 82.0 fL Mean Corpuscular Hemoglobin 29.2 pg Mean Corpuscular Hemoglobin Concent 35.7 g/dl Platelet Count 153 K/uL Mean Platelet Volume 13.4 fL Neutrophils (%) (Auto) 89.9 % Lymphocytes (%) (Auto) 3.4 % Monocytes (%) (Auto) 6.4 % Eosinophils (%) (Auto) 0.0 % Basophils (%) (Auto) 0.0 % Neutrophils # (Auto) 13.06 K/uL Lymphocytes # (Auto) 0.49 K/uL Monocytes # (Auto) 0.93 K/uL Eosinophils # (Auto) 0.00 K/uL Basophils # (Auto) 0.00 K/uL RDW Standard Deviation 42.9 fL RDW Coefficient of Variation 14.5 % Immature Granulocyte % (Auto) 0.3 % Immature Granulocyte # (Auto) 0.05 K/uL Sodium Level 128 mmol/L Potassium Level 3.4 mmol/L Chloride Level 93 mmol/L Carbon Dioxide Level 23 mmol/L Anion Gap 12.0 mmol/L Blood Urea Nitrogen 80 mg/dl Creatinine 3.48 mg/dl Est Creatinine Clear Calc Drug Dose 23.0 ml/min Estimated GFR () 21.5 Estimated GFR (Non- 18.5 BUN/Creatinine Ratio 22.9 Random Glucose 283 mg/dl Calcium Level 8.0 mg/dl Total Bilirubin 0.8 mg/dl Direct Bilirubin 0.4 mg/dl Aspartate Amino Transf (AST/SGOT) 42 U/L Alanine Aminotransferase (ALT/SGPT) 98 U/L Alkaline Phosphatase 706 U/L Total Protein 6.3 gm/dl Albumin 2.7 gm/dl Bedside Glucose 243 mg/dl Assessment and Plan A/P: Incomplete bladder emptying Likely r/t BPH. Pt voiding on his own. Continue bladder scans qshift. Place sarkar catheter for PVR >250ml. Continue tamsulosin. ? prostatitis. Boggy prostate with pain radiating to penis on AYAAN per Dr. Alcantar. UC&S pending. Continue Cipro 250mg BID x 4 weeks to treat for possible prostatitis. Will arrange for outpatient f/u in 2 weeks.
[2017-09-22] MEDS ORDERED: POTASSIUM CHLORIDE 20 MEQ TABCR PO ONE (11:09)
[2017-09-22 11:50] VITALS: BP 115/70; PULSE 62; TEMP 36.6; O2SAT 98
[2017-09-22] MEDS ORDERED: INSPMPHMLG (12:24)
[2017-09-22] MEDS ORDERED: INSULIN HUMAN LISPRO (humaLOG) 100 UNITS/ML VIAL SC PRN (12:30)
--- NOTE | 2017-09-22 12:38 | Nephrology Progress Note ---
Nephrology Progress Note Date of Service Sep 22, 2017. Chief Complaint ESRD Subjective No acute events overnight. Candelario was seen and evaluated in his hospital room this morning. He had no acute complaints. No complications with PD overnight. Exchanges are smooth. Effluent clear. No abdominal pain reported. Net UF 2.5 L. Lower extremity edema improving. Overall, Candelario feels well and hopes to be discharged home today. Review of Systems A complete review of systems was performed. Pertinent positives are noted above. All other systems are negative. Vital Signs Last 8 Hrs Date Time Temp Pulse Resp B/P (MAP) Pulse Ox O2 Delivery O2 Flow Rate FiO2 09/22/17 12:00 Room Air 09/22/17 11:50 36.6 62 18 115/70 (85) 98 Room Air 09/22/17 08:10 36.4 60 18 121/73 (89) 09/22/17 08:06 36.4 60 18 121/73 (89) 98 Room Air 09/22/17 08:00 Room Air I & O 24-Hour Column 09/23/17 08:00 Intake Total 8000 ml Output Total 79029 ml Balance -5068 ml Last Recorded Weight Weight (Kilograms): 79.100 Physical Exam General Appearance: WD/WN, no apparent distress Head: normocephalic, atraumatic Eyes: normal inspection, sclerae normal ENT: normal ENT inspection, pharynx normal Neck: supple, + JVD Respiratory/Chest: no respiratory distress, no accessory muscle use, + rhonchi Cardiovascular: regular rate, rhythm, no gallop Abdomen/GI: non tender, soft, + pertinent finding (Exit site clean without erythema or drainage) Extremities/Musculoskelatal: normal inspection, no pedal edema Neurologic/Psych: alert, normal mood/affect Family History Cancer Diabetes mellitus Heart disease Hypertension Negative for CKD / ESRD Social History Smoking Status: Former smoker Smokeless Tobacco Use: No Alcohol Use: occasionally Drug Use: none Marital Status: Housing Status: lives with family Occupation: disabled . Medically disabled. Former smoker (quit 2000) Laboratory Results Past 24 Hours 09/22/17 04:54 Red Blood Count 5.06, Mean Corpuscular Volume 82.0, Mean Corpuscular Hemoglobin 29.2, Mean Corpuscular Hemoglobin Concent 35.7, Mean Platelet Volume 13.4, Neutrophils (%) (Auto) 89.9, Lymphocytes (%) (Auto) 3.4, Monocytes (%) (Auto) 6.4, Eosinophils (%) (Auto) 0.0, Basophils (%) (Auto) 0.0, Neutrophils # (Auto) 13.06, Lymphocytes # (Auto) 0.49, Monocytes # (Auto) 0.93, Eosinophils # (Auto) 0.00, Basophils # (Auto) 0.00 09/22/17 04:54 Test 09/21/17 16:29 09/21/17 20:14 09/22/17 00:27 09/22/17 04:54 Bedside Glucose 153 mg/dl (70-99) 124 mg/dl (70-99) 250 mg/dl (70-99) White Blood Count 14.53 K/uL (4.8-10.8) Red Blood Count 5.06 M/uL (4.7-6.1) Hemoglobin 14.8 g/dL (14.0-18.0) Hematocrit 41.5 % (42-52) Mean Corpuscular Volume 82.0 fL (80-100) Mean Corpuscular Hemoglobin 29.2 pg (25-34) Mean Corpuscular Hemoglobin Concent 35.7 g/dl (32-36) Platelet Count 153 K/uL (130-400) Mean Platelet Volume 13.4 fL (7.4-10.4) Neutrophils (%) (Auto) 89.9 % Lymphocytes (%) (Auto) 3.4 % Monocytes (%) (Auto) 6.4 % Eosinophils (%) (Auto) 0.0 % Basophils (%) (Auto) 0.0 % Neutrophils # (Auto) 13.06 K/uL (1.4-6.5) Lymphocytes # (Auto) 0.49 K/uL (1.2-3.4) Monocytes # (Auto) 0.93 K/uL (0.11-0.59) Eosinophils # (Auto) 0.00 K/uL (0-0.5) Basophils # (Auto) 0.00 K/uL (0-0.2) RDW Standard Deviation 42.9 fL (36.4-46.3) RDW Coefficient of Variation 14.5 % (11.5-14.5) Immature Granulocyte % (Auto) 0.3 % Immature Granulocyte # (Auto) 0.05 K/uL (0.00-0.02) Anion Gap 12.0 mmol/L (3-11) Est Creatinine Clear Calc Drug Dose 23.0 ml/min Estimated GFR () 21.5 Estimated GFR (Non- 18.5 BUN/Creatinine Ratio 22.9 (10-20) Calcium Level 8.0 mg/dl (8.5-10.1) Total Bilirubin 0.8 mg/dl (0.2-1) Direct Bilirubin 0.4 mg/dl (0-0.2) Aspartate Amino Transf (AST/SGOT) 42 U/L (15-37) Alanine Aminotransferase (ALT/SGPT) 98 U/L (12-78) Alkaline Phosphatase 706 U/L (45-117) Total Protein 6.3 gm/dl (6.4-8.2) Albumin 2.7 gm/dl (3.4-5.0) Test 09/22/17 07:07 09/22/17 11:25 Bedside Glucose 243 mg/dl (70-99) 109 mg/dl (70-99) Allergies Coded Allergies: Penicillins (Verified Allergy, Severe, HIVES, 09/18/17) BEE STING (Verified Allergy, Intermediate, SWELLING, 09/18/17) DOES NOT REQUIRE EPIPEN PER FAMILY Medications Current Inpatient Medications Medications (Trade) Dose Ordered Sig/Shasha Route Start Time Stop Time Status Last Admin Dose Admin Acetaminophen (Tylenol Tab) 650 mg Q4H PRN PO 09/18/17 22:15 10/18/17 22:14 Al Hydrox/Mg Hydrox/Simethicone (Maalox Max Susp) 15 ml Q4H PRN PO 09/18/17 22:15 10/18/17 22:14 Magnesium Hydroxide (Milk Of Magnesia Susp) 30 ml Q12H PRN PO 09/18/17 22:15 10/18/17 22:14 Ondansetron HCl (Zofran Inj) 4 mg Q6H PRN IV 09/18/17 22:15 10/18/17 22:14 Nitroglycerin (Nitrostat Tab) 0.4 mg UD PRN SL 09/18/17 22:15 10/18/17 22:14 Polyethylene (Miralax Powder Packet) 17 gm DAILY PRN PO 09/18/17 22:15 10/18/17 22:14 Acyclovir (Zovirax Tab) 400 mg BID PO 09/19/17 09:00 09/29/17 08:59 09/22/17 08:27 400 MG Aspirin (Ecotrin Tab) 81 mg QPM PO 09/19/17 21:00 10/19/17 20:59 09/21/17 20:51 81 MG Carvedilol (Coreg Tab) 6.25 mg BID PO 09/19/17 09:00 10/19/17 08:59 09/22/17 08:27 6.25 MG Salmeterol Xinafoate/ Fluticasone (Advair Diskus 250/50 Inh) 1 puff Q12 INH 09/19/17 09:00 10/19/17 08:59 09/22/17 08:25 1 PUFF Furosemide (Lasix Tab) 40 mg BID PO 09/19/17 09:00 10/19/17 08:59 09/22/17 08:26 40 MG Gabapentin (Neurontin Cap) 300 mg HS PO 09/19/17 21:00 10/19/17 20:59 09/21/17 20:50 300 MG Lactulose (Chronulac Syrup) 10 gm DAILY PRN PO 09/18/17 22:15 10/18/17 22:14 Levalbuterol (Xopenex 1.25MG/ 3ML Neb) 1.25 mg TID PRN INH 09/18/17 22:15 10/18/17 22:14 09/20/17 14:48 1.25 MG Lorazepam (Ativan Tab) 0.5 mg BID PRN PO 09/18/17 22:15 10/18/17 22:14 Montelukast Sodium (Singulair Tab) 10 mg QPM PO 09/19/17 21:00 10/19/17 20:59 09/21/17 20:52 10 MG Oxycodone/ Acetaminophen (Percocet 5-325mg Tab) 1 tab HS PO 09/19/17 21:00 10/03/17 20:59 09/21/17 21:03 1 TAB Pantoprazole Sodium (Protonix Tab) 40 mg QAM PO 09/19/17 09:00 10/19/17 08:59 09/22/17 08:26 40 MG Ropinirole HCl (Requip Tab) 2 mg QPM PO 09/19/17 21:00 10/19/17 20:59 09/21/17 20:52 2 MG Ropinirole HCl (Requip Tab) 1 mg QAM PO 09/19/17 09:00 10/19/17 08:59 09/22/17 08:27 1 MG Rosuvastatin Calcium (Crestor Tab) 20 mg HS PO 09/19/17 21:00 10/19/17 20:59 09/21/17 20:50 20 MG Sertraline HCl (Zoloft Tab) 50 mg QPM PO 09/19/17 21:00 10/19/17 20:59 09/21/17 20:52 50 MG Trazodone HCl (Desyrel Tab) 50 mg HS PRN PO 09/18/17 22:15 10/18/17 22:14 Glucose (Glucose 40% Gel) 15-30 GRAMS 15 GRAMS... UD PRN PO 09/18/17 23:15 10/18/17 23:14 Glucose (Glucose Chew Tab) 4-8 Tablets 4 Tabl... UD PRN PO 09/18/17 23:15 10/18/17 23:14 Glucagon (Glucagon Inj) 1 mg UD PRN SQ 09/18/17 23:15 10/18/17 23:14 Dextrose (Dextrose 50% 50ML Syringe) 25-50ML OF 50% DW IV FOR... UD PRN IV 09/18/17 23:15 10/18/17 23:14 Miscellaneous (Iv Fluids Completed) 1 ea PRN PRN N/A 09/19/17 02:30 09/19/18 02:29 Miscellaneous Information (Consult Glycemic Management Pharmacy) 1 ea UD PRN N/A 09/19/17 07:42 10/19/17 07:41 Heparin Sodium (Porcine) (Heparin Sq 5000 Unit/0.5ml) 5,000 unit Q12 SQ 09/20/17 21:00 10/20/17 20:59 09/22/17 08:24 5,000 UNIT Ciprofloxacin (Ciprofloxacin Tab) 250 mg DAILY PO 09/20/17 11:59 11/02/17 11:58 09/22/17 08:26 250 MG Tamsulosin HCl (Flomax Cap) 0.4 mg QAM PO 09/21/17 09:00 10/21/17 08:59 09/22/17 08:26 0.4 MG Potassium Chloride (Klor-Con Tab) 40 meq BID PO 09/22/17 21:00 09/23/17 09:01 Prednisone (PredniSONE TAB) 20 mg QAM PO 09/23/17 09:00 10/22/17 08:59 Insulin Human Lispro (HumaLOG INSULIN PUMP) 1 ea ACHS N/A 09/22/17 12:30 10/22/17 12:29 09/22/17 12:27 1 EA Insulin Human Lispro (humaLOG) SLIDING SCALE PRN PRN SC 09/22/17 12:30 10/22/17 12:29 Impression (1) ESRD on peritoneal dialysis (2) COPD exacerbation (3) Ischemic cardiomyopathy (4) Hyponatremia Mr. Caro was admitted for COPD exacerbation, CHF, hyponatremia and NSTEMI. Hospitalization complicated by hyperglycemia and metabolic acidosis. He has ESRD due to cardiorenal syndrome and is on NCCPD therapy (4 exchanges / night, 2 L fill volume, 1.5% mixed w/ 2.5% Delflex. Fill 10/dwell 100/drain 20) . PMH - ESRD due to diabetic nephropathy, hypertensive nephrosclerosis and advanced ICM. 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 Transitioned to NCCPD 01/31. Incarcerated hernia requiring back up IHD 01/04. Patient resumed NCCPD 05/07. HTN, IDDM - on insulin pump (Care Team Coordinator Scheduler = Dr. Jean Marie Gray / [facility], [place]) , ASCVD s/p CABG x 2 2005. COPD, ROBERT Recommendations END STAGE RENAL DISEASE: -- Continue 2.5/4.5% Delflex exchanges -- CCPD 4 exchanges overnight 2L fill URINARY RETENTION: -- Improving -- Appreciate urology consult -- Straight cath PRN and outpatient follow up ASCVD: -- Denies symptoms COPD: -- Improving with treatment
[2017-09-22] MEDS ORDERED: PRD20 PO (13:28)
[2017-09-22] MEDS ORDERED: CIPR250T3 PO (13:28)
[2017-09-22] MEDS ORDERED: FLM4 PO (13:28)
--- NOTE | 2017-09-22 14:07 | Discharge Instructions ---
Discharge Instructions Date of Service Sep 22, 2017. Admission Reason for Admission: Asthma Exacerbation,Elevated Troponin,Hyponatremia Discharge Discharge Diagnosis / Problem: COPD exacerbation Discharge Goals Goal(s): Improve function, Increase independence, Improve disease control Activity Recommendations Activity Limitations: resume your previous activity . Instructions / Follow-Up Instructions / Follow-Up Mr. Caro, You came to [facility] experiencing a exacerbation of your COPD. We treatment included ; breathing treatments, antibiotics and steroids. Throughout the course fo your stay, we consulted a diabetic pharmacist to manage your blood sugars. As you have experienced, your blood sugar is difficult to manage on steroids. You were also seen by your hydraulics teacher and appeals board referee. You also had trouble urinating while at the hospital and had to be relieved with a straight catheter. You were diagnosed with "urinary retention". The cause of the urinary issues are either due to a infection of your prostate or benign enlargement of the prostate. We are sending you home with two medications to go home with; Ciprofloxacin and Flomax. Ciprofloxacin is a antibiotic and Flomax is medicine that relaxes the tube from your bladder to your penis. The problem appears to have resolved, but if you continue to have problems in the outpatient, follow up with [facility] urology. Plan; 1. New prescriptions; Flomax, Ciprofloxacin 2. Follow up with Dr. Shepherd on 09/28/2017 at [facility], 11am 3. Take two more doses of Prednisone. Continue to control sugars with insulin pump. Please follow up with primary doctor or come to the ED if you are experiencing severe symptoms such as shortness of breathe, chest pain. Current Hospital Diet Patient's current hospital diet: AHA Diet (Heart Healthy), Renal Diet, Diabetes Type 2 Diet Discharge Diet Recommended Diet: AHA Diet (Heart Healthy), Diabetes Type 2 Diet Pending Studies Studies pending at discharge: no Medical Emergencies . Who to Call and When: Medical Emergencies: If at any time you feel your situation is an emergency, please call 911 immediately. . Non-Emergent Contact Non-Emergency issues call your: Primary Care Provider, Science Consultant . . "Provider Documentation" section prepared by Yogesh Dangelo. . VTE Core Measure Inpt VTE Proph given/why not?: SCD's
[2017-09-22 14:37] VITALS: BP 115/70; PULSE 62; TEMP 36.6; O2SAT 98
--- NOTE | 2017-09-22 20:43 | Discharge Summary ---
Discharge Summary Date of Service Sep 22, 2017. Discharge Summary Admission Date: Sep 18, 2017 at 22:31 Discharge Date: Sep 22, 2017 Discharge Disposition: Home Principal Diagnosis: COPD exacerbation Immunizations: Have You Had Influenza Vaccine: Yes Influenza Vaccine Date: May 10, 2012 History of Tetanus Vaccine?: Yes Tetanus Immunization Date: May 08, 2006 History of Pneumococcal: Yes Pneumococcal Date: May 10, 2006 History of Hepatitis B Vaccine: Yes Discharge Exam Review of Systems: Constitutional: No fever, No chills, No sweats Respiratory: No cough, No sputum, No wheezing Cardiovascular: No chest pain, No palpitations Abdomen: No pain, No nausea, No vomiting, No diarrhea Physical Exam: General Appearance: WD/WN, no apparent distress Respiratory/Chest: chest non-tender, no respiratory distress, no accessory muscle use, + wheezing Cardiovascular: regular rate, rhythm, no edema, no gallop Abdomen / GI: normal bowel sounds, non tender, soft Extremities: no calf tenderness, no pedal edema Neurologic/Psychiatric: alert, normal mood/affect, oriented x 3 Skin: normal color, warm/dry, no rash Hospital Course Mr. Caro (PMH of ESRD) came to [facility] and was treated for COPD exacerbation and was started on IV steroids and Azithromycin. The patient showed marked clinical improvement within the first night of treatment. The patient had elevated blood glucose on steroids. Despite correction with his insulin pump, the patient elevated glucose persisted, prompting starting a insulin drip. Over the next day , the patient became more well managed on the glycemic protocol and steroids was effectively deescalated. On day 2, the patient began to experience urinary retention. Patient was started on Cipro and Flomax for possible BPH or prostatitis. Urinary retention subsided by the time of discharge. Patient was dc'ed with; 20 mg PO prednisone x2 days, Cipro 250mg x4 weeks and Flomax. The patient was also seen by cardiology after his troponin was found to be elevated to 4. Patient has elevated trop at baseline. Cardiology reported trop to be 2/2 to supply/demand. Patient will follow up closely with Dr. Shepherd. Patient was also seen by Nephrology. Please see problem list below for more information; Acute on Chronic resp failure 2/2 COPD exacerbation - Prednisone 60 mg PO---> transition to 40mg PO tomorrow - Continue home meds: Advair and Montelukast, Xopenex - Flu negative. 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 Not currently receiving anticoagulation therapy despite a high SUPA due to issues with GI blood loss - cardiology and nephrology consulted ESRD on peritoneal dialysis - Nephrology consulted for peritoneal dialysis - Monitor I/O, daily weights Hyponatremia - Correct for elevated glucose - Caution salt replacement given CHF co-morbidity - Defer management to nephrology - Trend BMP IDDM w/ hypo/hyperglycemia and diabetic neuropathy - HgbA1C 4.0%: (06/06) - Continue insulin pump - Sugars are responding appropriately - BG check ac/hs - Continue gabapentin Restless leg syndrome - Continue Ropinirole Mood - Continue sertraline VTE ppx: - SCDs - subQ hep LEVEL I, FULL CODE Total Time Spent: Less than 30 minutes This includes examination of the patient, discharge planning, medication reconciliation, and communication with other providers. Resident Physician Supervision Note: I was present with Dr. Dangelo during the history and exam. I discussed the case with the resident and agree with the findings and plan as documented in the note. Patient without complaint at current. Discussed glycemic control with pharmacy; he may slightly high for the next several days at the steroids are tapered. Documented By: Vahid Sutherland Discharge Instructions Please refer to the electronic Patient Visit Report (Discharge Instructions) for additional information. Additional Copies To Arielle Whittaker MD
[2017-09-22] MEDS ORDERED: POTASSIUM CHLORIDE 20 MEQ TABCR PO SCH (21:00)
== END 2017-09-22 15:42 | disposition home or self-care (01) | DRG 190 ==
LOC: C.EDB 14:31 → C.2T 22:31 → EDBEDREQ 22:33 → ENRESERV 22:58
PROVIDERS: ADMIT Internal Medicine; ATTEND Family Medicine
DX: J44.1 Chronic obstructive pulmonary disease with (acute) exacerbation (principal); J96.20 Acute and chronic respiratory failure, unspecified whether with hypoxia or hypercapnia; I21.A1 Myocardial infarction type 2; N18.6 End stage renal disease; I13.2 Hypertensive heart and chronic kidney disease with heart failure and with stage 5 chronic kidney disease, or end stage renal disease; I50.42 Chronic combined systolic (congestive) and diastolic (congestive) heart failure; E87.1 Hypo-osmolality and hyponatremia; E87.6 Hypokalemia; T48.6X5A Adverse effect of antiasthmatics, initial encounter; N41.9 Inflammatory disease of prostate, unspecified; N40.0 Benign prostatic hyperplasia without lower urinary tract symptoms; R33.9 Retention of urine, unspecified; I25.10 Atherosclerotic heart disease of native coronary artery without angina pectoris; I25.5 Ischemic cardiomyopathy; I48.0 Paroxysmal atrial fibrillation; E11.22 Type 2 diabetes mellitus with diabetic chronic kidney disease; E11.40 Type 2 diabetes mellitus with diabetic neuropathy, unspecified; E11.65 Type 2 diabetes mellitus with hyperglycemia; G25.81 Restless legs syndrome; Z99.2 Dependence on renal dialysis; I25.2 Old myocardial infarction; Z95.1 Presence of aortocoronary bypass graft; Z95.810 Presence of automatic (implantable) cardiac defibrillator; Z90.49 Acquired absence of other specified parts of digestive tract; Z87.891 Personal history of nicotine dependence; Z79.4 Long term (current) use of insulin; Z79.82 Long term (current) use of aspirin; Z79.891 Long term (current) use of opiate analgesic; Z79.899 Other long term (current) drug therapy; Z88.0 Allergy status to penicillin; Z82.49 Family history of ischemic heart disease and other diseases of the circulatory system; Z83.3 Family history of diabetes mellitus

== ENCOUNTER 2017-10-04 23:37 | Inpatient (IN) | payer OTHER ==
[~2017-10-04] VITALS: Ht 162.6 cm; Wt 82.1 kg
[~2017-10-04 23:37] MED LIST changes: +CIPR1TAB11 PO; +CIPR250T3 PO; +FLM4 PO; +INSPMPHMLG; -INSPMPNVLG; +PRD20 PO; +PRED10TA PO
[2017-10-05] VITALS (11 sets, daily range): BP systolic 109–119; BP diastolic 63–75; PULSE 64–94; TEMP 36.6–37.1; O2SAT 93–100; BMI 31.2
[2017-10-05] MEDS ORDERED: ASPIRIN 81 MG CHEW PO STA (00:22)
[2017-10-05] MEDS ORDERED: ALBUT/IPRATROP 3MG/0.5MG NEB 3 ML VIAL INH STA (00:22)
[2017-10-05] MEDS ORDERED: NITROGLYCERIN 0.4 MG SL PER TAB CHARGE SL PRN ×2 (00:30→03:15)
--- NOTE | 2017-10-05 00:39 | EMERGENCY ROOM VISIT NOTE ---
History Report prepared by Dana: Archana Stapleton Under the Supervision of: Dr. Beatriz Manzano M.D. First contact with patient: 23:53 Chief Complaint: CHEST PAIN Stated Complaint: CHEST PAIN,DISCOMFORT, HX OF CARDIAC History of Present Illness The patient is a 57 year old male who presents to the Emergency Room with complaints of persistent chest pain that began one hour ago. The patient had his pacemaker placed on 08/09/17. He was seen in the Emergency Department two weeks ago inability to urinate and COPD exacerbation. The patient reports that he gets peritoneal dialysis. The patient currently has bronchitis, noting he is taking Prednisone for 5 days to relieve his symptoms. The patient denies any fevers. He reports that his pain feels like it is coming from the middle of his chest and does not feel like his previous heart attack pains. The patient states he took Tylenol and 2 Nitroglycerin prior to arrival, which did not help relieve his symptoms. He notes that after dinner today his sugar was 519. The patient reports that he exercised today because he was not given any restrictions, but feels like he may have worked out too hard. Source of History: patient Onset: one hour ago Position: chest Quality: other (chest pain) Timing: other (persistent) Associated Symptoms: No fevers Note: Associated symptoms include: bronchitis Review of Systems See HPI for pertinent positives & negatives. A total of 10 systems reviewed and were otherwise negative. Past Medical & Surgical Medical Problems: (1) ACS (acute coronary syndrome) (2) Acute renal failure syndrome (3) Asthma (4) Asthma exacerbation (5) Benign hypertension (6) Cholecystectomy (7) Chronic obstructive lung disease (8) Coronary artery bypass grafting (9) Coronary artery disease (10) Diabetes mellitus (11) Elevated troponin (12) End stage renal failure on dialysis (13) ESRD on hemodialysis (14) GI bleed (15) Heart disease (16) Hepatitis (17) Hyponatremia (18) Hypotension (19) Incarcerated ventral hernia (20) Intermitent atrial fibrillation (21) Ischemic cardiomyopathy (22) Myocardial infarction (23) Obstructive sleep apnea syndrome (24) Peritoneal dialysis status (25) Peritonitis associated with peritoneal dialysis (26) Pneumonia (27) Secondary hyperparathyroidism of renal origin Surgical Problems: (1) History of bowel resection (2) History of hernia repair Family History Cancer Diabetes mellitus Heart disease Hypertension Social History Smoking Status: Former Smoker Alcohol Use: none Drug Use: none Marital Status: Housing Status: lives with family Occupation Status: disabled Current/Historical Medications Scheduled Acyclovir (Acyclovir), 400 MG PO BID Aspirin (Aspirin Ec), 81 MG PO QPM Carvedilol (Coreg), 6.25 MG PO BID Ciprofloxacin Tab (Cipro), 250 MG PO BID Fluticasone Prop/Salmeterol (Advair Diskus 250/50 60 Dose), 1 PUFF INH Q12 Furosemide (Lasix), 40 MG PO BID Gabapentin (Neurontin), 300 MG PO HS Insulin Human Lispro (Insulin Humalog Pump ), 1 EA N/A UD Montelukast Sod (Montelukast Sodium), 10 MG PO QPM Multiple Vitamins W/ Minerals (Prorenal Qd), 1 CAP PO QAM Oxycodone/Acetaminophen 5MG/325MG (Percocet 5MG/325MG), 1 TABLET PO HS Pantoprazole (Pantoprazole Sodium), 40 MG PO QAM Prednisone (Prednisone), MG PO UD Ropinirole (Requip), 2 MG PO QPM Ropinirole Hydrochloride (Requip), 1 MG PO QAM Rosuvastatin Calcium (Crestor), 20 MG PO HS Sertraline HCl (Sertraline HCl), 50 MG PO QPM Tamsulosin HCl (Tamsulosin HCl), 0.4 MG PO QAM Scheduled PRN Albuterol Sulfate (Proair Respiclick), 2 PUFFS INH QAM PRN for SOB/Wheezing Glucagon (Glucagon Emergency Kit), 1 DOSE INJ UD PRN for HYPOGLYCEMIA Lactulose (Chronulac), 1 DOSE PO DIRECTED PRN for Constipation Levalbuterol (Levalbuterol HCl), 1 VIAL NEB TID PRN for COPD Lorazepam (Ativan), 0.5-1 MG PO BID PRN for Anxiety Nitroglycerin (Nitrostat), 0.4 MG UT UD PRN for Chest Pain Ondansetron Hcl (Zofran), 4 MG PO Q6H PRN for Nausea Polyethylene Glycol 3350 (Miralax), 17 GM PO DAILY PRN for Constipation Trazodone Hcl (Trazodone), 50 MG PO HS PRN for Sleep Allergies Coded Allergies: Penicillins (Verified Allergy, Severe, HIVES, 10/05/17) BEE STING (Verified Allergy, Intermediate, SWELLING, 10/05/17) DOES NOT REQUIRE EPIPEN PER FAMILY Physical Exam Vital Signs Date Time Temp Pulse Resp B/P (MAP) Pulse Ox O2 Delivery O2 Flow Rate FiO2 10/05/17 03:27 67 112/59 98 Room Air 10/05/17 03:27 68 10/05/17 01:44 74 16 127/70 98 Room Air 10/05/17 01:07 78 18 10/05/17 00:22 81 18 99 10/05/17 00:10 98 Room Air 10/05/17 00:07 98 Room Air 10/04/17 23:58 83 10/04/17 23:56 36.5 78 19 106/88 99 Room Air 10/04/17 23:53 134/71 Physical Exam Vital signs reviewed. General: Chronically-ill appearing, in no significant distress. HEENT: No scleral icterus, PERRLA, neck supple. Atraumatic. Cardiovascular: Regular rate and rhythm, no extra sounds. Pulmonary: Course breath sounds, right greater than left. Abdomen: Peritoneal dialysis catheter. Soft, nontender, nondistended, positive bowel sounds. Musculoskeletal: Atraumatic, no peripheral edema. Neurologic: Patient awake alert and oriented x 3, full strength in all 4 extremities. Cranial nerves 2 through 12 grossly intact. Skin: Warm, dry, no rash Medical Decision & Procedures ER Provider Diagnostic Interpretation: Chest x-ray results as stated below per interpretation by me: One view: cardiac pacemaker in place, cardiomegaly, post-surgical change noted, no failure, and no focal lung consolidation. Laboratory Results Test 10/05/17 00:00 10/05/17 01:56 Immature Granulocyte % (Auto) 0.3 % White Blood Count 11.65 K/uL (4.8-10.8) Red Blood Count 4.65 M/uL (4.7-6.1) Hemoglobin 13.6 g/dL (14.0-18.0) Hematocrit 40.0 % (42-52) Mean Corpuscular Volume 86.0 fL (80-100) Mean Corpuscular Hemoglobin 29.2 pg (25-34) Mean Corpuscular Hemoglobin Concent 34.0 g/dl (32-36) Platelet Count 171 K/uL (130-400) Mean Platelet Volume 12.6 fL (7.4-10.4) Neutrophils (%) (Auto) 89.9 % Lymphocytes (%) (Auto) 4.9 % Monocytes (%) (Auto) 4.7 % Eosinophils (%) (Auto) 0.1 % Basophils (%) (Auto) 0.1 % Neutrophils # (Auto) 10.48 K/uL (1.4-6.5) Lymphocytes # (Auto) 0.57 K/uL (1.2-3.4) Monocytes # (Auto) 0.55 K/uL (0.11-0.59) Eosinophils # (Auto) 0.01 K/uL (0-0.5) Basophils # (Auto) 0.01 K/uL (0-0.2) Immature Granulocyte # (Auto) 0.03 K/uL (0.00-0.02) Prothrombin Time 10.8 SECONDS (9.0-12.0) Prothromb Time International Ratio 1.0 (0.9-1.1) Total Bilirubin 1.2 mg/dl (0.2-1) Direct Bilirubin 0.6 mg/dl (0-0.2) Aspartate Amino Transf (AST/SGOT) 66 U/L (15-37) Alanine Aminotransferase (ALT/SGPT) 155 U/L (12-78) Alkaline Phosphatase 641 U/L (45-117) Total Creatine Kinase 120 U/L (39-308) Creatine Kinase MB 3.4 ng/ml (0.5-3.6) Creatine Kinase MB Ratio 2.8 (0-3.0) Total Protein 6.4 gm/dl (6.4-8.2) Albumin 2.8 gm/dl (3.4-5.0) Beta-Hydroxybutyric Acid 1.81 mg/dL (0.2-2.81) Bedside Troponin I 0.870 ng/ml (0-0.045) Laboratory results per my review. Medications Administered Medications (Trade) Dose Ordered Sig/Shasha Route Start Time Stop Time Status Last Admin Dose Admin Albuterol/ Ipratropium (Duoneb) 3 ml NOW STAT INH 10/05/17 00:22 10/05/17 00:25 DC 10/05/17 00:47 3 ML Aspirin (Aspirin Chew) 324 mg NOW STAT PO 10/05/17 00:22 10/05/17 00:25 DC 10/05/17 00:47 324 MG Nitroglycerin (Nitrostat Tab) 0.4 mg Q5M PRN SL 10/05/17 00:30 10/05/17 03:47 DC 10/05/17 00:48 0.4 MG Heparin Sodium/ Dextrose 1 ea NOW STAT N/A 10/05/17 02:39 10/05/17 02:40 DC 10/05/17 02:39 1 EA Heparin Sodium (Porcine) (Heparin Iv Bolus) 10,000 unit STK-MED ONCE .ROUTE 10/05/17 03:20 10/05/17 03:21 DC 10/05/17 03:34 4,000 UNIT Heparin Sodium/ Dextrose (Heparin 25,000 Unit/500ml D5W) 25,000 unit STK-MED ONCE .ROUTE 10/05/17 03:20 10/05/17 03:21 DC 10/05/17 03:33 25,000 UNIT Acetaminophen (Tylenol Tab) 650 mg Q4H PRN PO 10/05/17 03:15 11/04/17 03:14 10/05/17 19:55 650 MG ECG Per My Interpretation Indication: chest pain Rate (beats per minute): 89 Rhythm: normal sinus Findings: other (right axis, non-specific intraventricular conduction delay, previous anterior septal infarct) Comparison ECG Date: 09/20/17: sinus rhythm is new, preciously paced Change: The patients electrocardiogram was interpreted by me. ED Course 0013: Past medical records reviewed. The patient was evaluated in room B2. A complete history and physical examination was performed. 0022: Ordered Aspirin 324mg PO and Duoneb 3ml INH. 0030: ORdered Nitroglycerin 0.4mg. 0218: I reevaluated the patient, who was resting comfortably. I updated him on some test findings. 0223: Dr. Maximiliano Briseno, [facility] was notified about the patient's case. 0239: Ordered Heparin Sodium/Dextrose 1ea. 0241: I spoke with Dr. Reed, Dr. Briseno's resident, and discussed the patient' s case. He will evaluate the patient for further management. 0243: I reevaluated the patient, who was resting. I updated him on test findings and the treatment plan. He verbalized complete understanding and agreement. Medical Decision Differential diagnosis: Etiologies such as cardiac ischemia, aortic dissection, pulmonary embolism, pneumonia, pneumothorax, musculoskeletal, infections, pericarditis, myocarditis , esophageal rupture, gastrointestinal, as well as others were entertained. This patient was evaluated and appeared to be in no significant distress. IV access was obtained and laboratory work was drawn. EKG reveals a normal sinus rhythm with an intraventricular conduction delay. Previous septal infarct, no ST elevation IN appreciated. The patient was placed on the panel monitor. The patient's was notified of his glucose level and used his insulin pump for a bolus. Patient was given a DuoNeb treatment, aspirin to chew and nitroglycerin for the chest pain. Patient's laboratory work reveals a mildly elevated troponin at 0.18. The patient did have a markedly elevated troponin several weeks ago and does have chronic kidney disease. A second troponin was ordered and 90 minutes later and has elevated to 0.87. The patient is pain-free at this time. A heparin drip was ordered. The patient will be [facility] further management. He is aware of the plan and agrees. Medication Reconcilliation Current Medication List: was personally reviewed by me Blood Pressure Screening Patient's blood pressure: Normal blood pressure Blood pressure disposition: Did not require urgent referral Consults Time Called: 222 Consulting Physician: FRANCISCO Tomas Returned Call: 222 FRANCISCO Tomas was notified about the patient's case. Additional Consults: Time Called: 024 Consulted Physician: Dr. Maximiliano Briseno's resident - Dr. Reed Returned Call: 024 Additional Comments: I spoke with Dr. Suzanna Lieberman's resident, and discussed the patient's case. He will evaluate the patient for further management. Impression Primary Impression: Non-STEMI (non-ST elevated myocardial infarction) Scribe Attestation The scribe's documentation has been prepared under my direction and personally reviewed by me in its entirety. I confirm that the note above accurately reflects all work, treatment, procedures, and medical decision making performed by me. Departure Information Dispostion Being Evaluated By Hospitalist Referrals Arielle Whittaker MD (PCP) Forms Call Back Authorization, HOME CARE DOCUMENTATION FORM, IMPORTANT VISIT INFORMATION Patient Instructions [facility]
[2017-10-05 00:40] LABS: BASO % 0.1 %; BASO ABS # 0.01 K/uL (0-0.2); EOS % 0.1 %; EOS ABS # 0.01 K/uL (0-0.5); HEMOGLOBIN 13.6 g/dL (14.0-18.0); IG# 0.03 K/uL (0.00-0.02); LYMPH % 4.9 %; LYMPH ABS # 0.57 K/uL (1.2-3.4); MEAN CORPUSCULAR HEMOGLOBIN 29.2 pg (25-34); MEAN PLATELET VOLUME 12.6 fL (7.4-10.4); MONO % 4.7 %; MONO ABS # 0.55 K/uL (0.11-0.59); NEUT % 89.9 %; NEUT ABS # 10.48 K/uL (1.4-6.5); PLATELET COUNT 171 K/uL (130-400); RED CELL DISTRIBUTION WIDTH CV 15.2 % (11.5-14.5); RED CELL DISTRIBUTION WIDTH SD 47.1 fL (36.4-46.3); WHITE BLOOD COUNT 11.65 K/uL (4.8-10.8)
[2017-10-05 00:44] LABS: PTT PATIENT 26.4 SECONDS (21.0-31.0)
[2017-10-05 01:04] LABS: ALBUMIN 2.8 gm/dl (3.4-5.0); ALKALINE PHOSPHATASE 641 U/L (45-117); ALT/SGPT 155 U/L (12-78); AST/SGOT 66 U/L (15-37); BLOOD UREA NITROGEN 35 mg/dl (7-18); CALCIUM 8.3 mg/dl (8.5-10.1); CARBON DIOXIDE 23 mmol/L (21-32); CKMB 3.4 ng/ml (0.5-3.6); CREATININE 2.85 mg/dl (0.60-1.40); GLUCOSE 552 mg/dl (70-99); POTASSIUM 4.2 mmol/L (3.5-5.1); SODIUM 130 mmol/L (136-145); TOTAL PROTEIN 6.4 gm/dl (6.4-8.2)
[2017-10-05] MEDS ORDERED: HEPARIN IV LOW DOSE NO BOLUS STA (03:13)
[2017-10-05] MEDS ORDERED: ONDANSETRON INJ 2 MG/ML 2 ML VIAL IV PRN (03:15)
[2017-10-05] MEDS ORDERED: ACETAMINOPHEN 325 MG TAB PO PRN (03:15)
[2017-10-05] MEDS ORDERED: POLYETHYLENE (MIRALAX) 17 GM PACK PO PRN (03:15)
[2017-10-05] MEDS ORDERED: MAGNESIUM HYDROXIDE SUSP 30 ML UDC PO PRN (03:15)
[2017-10-05] MEDS ORDERED: HEPARIN 25000 UNIT/500 ML D5W ONE (03:20)
[2017-10-05] MEDS ORDERED: HEPARIN SOD (PORCINE) 1000 UNIT/ML 10 ML VIAL ONE (03:20)
--- NOTE | 2017-10-05 04:29 | History and Physical ---
History & Physical Date & Time of Service: Oct 05, 2017 at 03:59 Chief Complaint: Chest Pain,Discomfort, Hx Of Cardiac Primary Care Physician: Arielle Whittaker MD History of Present Illness Source: patient, family, clinic records, hospital records 57 yo M with ESRD on peritoneal dialysis, HTN COPD, Asthma, poorly controlled DM with insulin pump, ASCVD s/p CABG x2 2006 presenting with Chest pain. Central Chest pain started 10:45 pm and felt like a"punch in the chest" with 5-6 /10 intensity. He took 3 doses of Tylenol with no relief and subsequently took nitroglycerine with no relief. He was started on Prednisone earlier today 40 mg today for Bronchitis by Dr. Whittaker. He is also on Ciprofloxacin x 1 month for prostatitis since his last admission on 09/18. He reports a glucose of 516 because he forgot use administer his insulin. At a previous encounter for elevated Troponin during [facility] admission from 09/18- 09/22, He had initially been placed on a Heparin drip and after Cardiology evaluation, troponin elevation was attributed to supply/ demand. He follows with Dr. Shepherd ( [facility]).He is a patient of Dr. Hyman for ESRD. He does peritoneal dialysis nightly. In the ED, He was palced on Heparin drip and give Aspirin , Nitroglycerine. Chest pain has since resolved Past Medical/Surgical History Medical Problems: (1) Acute renal failure syndrome Status: Resolved (2) Asthma Status: Chronic (3) Benign hypertension Status: Chronic (4) Cholecystectomy Status: Resolved (5) Chronic obstructive lung disease Status: Chronic (6) Coronary artery bypass grafting Status: Resolved (7) Diabetes mellitus Status: Chronic (8) End stage renal failure on dialysis Status: Chronic (9) Heart disease Status: Chronic (10) Myocardial infarction Status: Chronic (11) Obstructive sleep apnea syndrome Status: Chronic (12) Peritoneal dialysis status Status: Chronic (13) Pneumonia Status: Chronic Surgical Problems: (1) History of bowel resection Status: Resolved (2) History of hernia repair Status: Resolved Family History Cancer Diabetes mellitus Heart disease Hypertension Social History Smoking Status: Former Smoker Drug Use: none Marital Status: Housing status: lives with family Occupational Status: disabled Immunizations History of Influenza Vaccine: Yes Influenza Vaccine Date: May 10, 2012 History of Tetanus Vaccine?: Yes Tetanus Immunization Date: May 08, 2006 History of Pneumococcal: Yes Pneumococcal Date: May 10, 2006 History of Hepatitis B Vaccine: Yes Multi-Drug Resistant Organisms History of MDRO: No Allergies Coded Allergies: Penicillins (Verified Allergy, Severe, HIVES, 10/05/17) BEE STING (Verified Allergy, Intermediate, SWELLING, 10/05/17) DOES NOT REQUIRE EPIPEN PER FAMILY Home Medications Scheduled Acyclovir (Acyclovir), 400 MG PO BID Aspirin (Aspirin Ec), 81 MG PO QPM Carvedilol (Coreg), 6.25 MG PO BID Ciprofloxacin Tab (Cipro), 250 MG PO BID Fluticasone Prop/Salmeterol (Advair Diskus 250/50 60 Dose), 1 PUFF INH Q12 Furosemide (Lasix), 40 MG PO BID Gabapentin (Neurontin), 300 MG PO HS Insulin Human Lispro (Insulin Humalog Pump ), 1 EA N/A UD Montelukast Sod (Montelukast Sodium), 10 MG PO QPM Multiple Vitamins W/ Minerals (Prorenal Qd), 1 CAP PO QAM Oxycodone/Acetaminophen 5MG/325MG (Percocet 5MG/325MG), 1 TABLET PO HS Pantoprazole (Pantoprazole Sodium), 40 MG PO QAM Prednisone (Prednisone), MG PO UD Ropinirole (Requip), 2 MG PO QPM Ropinirole Hydrochloride (Requip), 1 MG PO QAM Rosuvastatin Calcium (Crestor), 20 MG PO HS Sertraline HCl (Sertraline HCl), 50 MG PO QPM Tamsulosin HCl (Tamsulosin HCl), 0.4 MG PO QAM Scheduled PRN Albuterol Sulfate (Proair Respiclick), 2 PUFFS INH QAM PRN for SOB/Wheezing Glucagon (Glucagon Emergency Kit), 1 DOSE INJ UD PRN for HYPOGLYCEMIA Lactulose (Chronulac), 1 DOSE PO DIRECTED PRN for Constipation Levalbuterol (Levalbuterol HCl), 1 VIAL NEB TID PRN for COPD Lorazepam (Ativan), 0.5-1 MG PO BID PRN for Anxiety Nitroglycerin (Nitrostat), 0.4 MG UT UD PRN for Chest Pain Ondansetron Hcl (Zofran), 4 MG PO Q6H PRN for Nausea Polyethylene Glycol 3350 (Miralax), 17 GM PO DAILY PRN for Constipation Trazodone Hcl (Trazodone), 50 MG PO HS PRN for Sleep Review of Systems Constitutional: No fever, No chills, No sweats Respiratory: + cough Cardiovascular: + chest pain (resolved), No edema Abdomen: No pain, No nausea, No vomiting Genitourinary - Male: No urinary frequency, No urinary urgency Integumentary: No rash, No itch Physical Exam Vital Signs Date Time Temp Pulse Resp B/P (MAP) Pulse Ox O2 Delivery O2 Flow Rate FiO2 10/05/17 03:27 67 112/59 98 Room Air 10/05/17 03:27 68 10/05/17 01:44 74 16 127/70 98 Room Air 10/05/17 01:07 78 18 10/05/17 00:22 81 18 99 10/05/17 00:10 98 Room Air 10/05/17 00:07 98 Room Air 10/04/17 23:58 83 10/04/17 23:56 36.5 78 19 106/88 99 Room Air 10/04/17 23:53 134/71 GENERAL: alert, no distress, non-toxic EYE EXAM: normal conjunctiva, PERRL and EOM's grossly intact OROPHARYNX: no exudate, no erythema, lips, buccal mucosa, and tongue normal and mucous membranes are moist NECK: supple, no nuchal rigidity, no adenopathy, non-tender LUNGS: farzana scattered wheeze , rhonchi HEART: no murmurs, S1 normal and S2 normal ABDOMEN: abdomen soft, non-tender, normo-active bowel sounds, no masses, no rebound or guarding. BACK: Back is symmetrical on inspection and there is no deformity, no midline tenderness, no CVA tenderness. UPPER EXTREMITIES: upper extremities are grossly normal. LOWER EXTREMITIES: No pitting edema. NEURO EXAM: Normal sensorium, cranial nerves II-XII grossly intact, normal speech Diagnostics Laboratory Results Results Past 24 Hours Test 10/05/17 00:00 10/05/17 00:34 10/05/17 00:58 10/05/17 01:56 Range/Units White Blood Count 11.65 4.8-10.8 K/uL Red Blood Count 4.65 4.7-6.1 M/uL Hemoglobin 13.6 14.0-18.0 g/dL Hematocrit 40.0 42-52 % Mean Corpuscular Volume 86.0 80-100 fL Mean Corpuscular Hemoglobin 29.2 25-34 pg Mean Corpuscular Hemoglobin Concent 34.0 32-36 g/dl Platelet Count 171 130-400 K/uL Mean Platelet Volume 12.6 7.4-10.4 fL Neutrophils (%) (Auto) 89.9 % Lymphocytes (%) (Auto) 4.9 % Monocytes (%) (Auto) 4.7 % Eosinophils (%) (Auto) 0.1 % Basophils (%) (Auto) 0.1 % Neutrophils # (Auto) 10.48 1.4-6.5 K/uL Lymphocytes # (Auto) 0.57 1.2-3.4 K/uL Monocytes # (Auto) 0.55 0.11-0.59 K/uL Eosinophils # (Auto) 0.01 0-0.5 K/uL Basophils # (Auto) 0.01 0-0.2 K/uL RDW Standard Deviation 47.1 36.4-46.3 fL RDW Coefficient of Variation 15.2 11.5-14.5 % Immature Granulocyte % (Auto) 0.3 % Immature Granulocyte # (Auto) 0.03 0.00-0.02 K/uL Prothrombin Time 10.8 9.0-12.0 SECONDS Prothromb Time International Ratio 1.0 0.9-1.1 Activated Partial Thromboplast Time 26.4 21.0-31.0 SECONDS Partial Thromboplastin Ratio 1.0 Sodium Level 130 136-145 mmol/L Potassium Level 4.2 3.5-5.1 mmol/L Chloride Level 96 98-107 mmol/L Carbon Dioxide Level 23 21-32 mmol/L Anion Gap 11.0 3-11 mmol/L Blood Urea Nitrogen 35 7-18 mg/dl Creatinine 2.85 0.60-1.40 mg/dl Estimated GFR () 27.4 Estimated GFR (Non- 23.6 BUN/Creatinine Ratio 12.4 10-20 Random Glucose 552 70-99 mg/dl Calcium Level 8.3 8.5-10.1 mg/dl Total Bilirubin 1.2 0.2-1 mg/dl Direct Bilirubin 0.6 0-0.2 mg/dl Aspartate Amino Transf (AST/SGOT) 66 15-37 U/L Alanine Aminotransferase (ALT/SGPT) 155 12-78 U/L Alkaline Phosphatase 641 45-117 U/L Total Creatine Kinase 120 39-308 U/L Creatine Kinase MB 3.4 0.5-3.6 ng/ml Creatine Kinase MB Ratio 2.8 0-3.0 Troponin I 0.215 0-0.045 ng/ml Total Protein 6.4 6.4-8.2 gm/dl Albumin 2.8 3.4-5.0 gm/dl Beta-Hydroxybutyric Acid 1.81 0.2-2.81 mg/dL Bedside Troponin I 0.180 0.870 0-0.045 ng/ml Bedside Glucose 420 395 70-99 mg/dl Microbiology Results 10/05/17 Blood Culture, Received Pending 10/05/17 Blood Culture, Received Pending Impression Assessment and Plan 57 yo M with ESRD on peritoneal dialysis, HTN COPD, Asthma, poorly controlled DM with insulin pump, ASCVD s/p CABG x2 2006 presenting with Chest pain, found to have elevated troponin on arrival, started on Heparin Drip Admit To Telemetry Chest pain, Troponin elevation, - Chest pain resolved - Troponin Elevation, no acute EKG changes, previously attributed to supply/ demand ischemia - Given Cardiac history, trend troponin, Cardiology consulted , rule our Acute MD - Trend Troponin ( .18-->.87) - Heparin Drip History of ASCVD s/p CABG -restart Statin, Coreg -R/o as contributor to currently Trop elevation , history Chest pain as above ESRD - nephrology consulted - uses Peritoneal dialysis at home nightly - Dialysis management per Nephrology/AM team Diabetes/ Neuropathy - Hyperglycemia exacerbated by recent steroid usage. - may use Insulin pump - Hyperglycemia likely secondary to prednisone in addition to poor compliance - restart Gabapentin Asthma - wheezing on exam -restart Advair Montelukast - duonebs GERD -Protonix Prostatitis - Continue Ciprofloxacin ( 1month course) Depression/Anxiety Zoloft DVT Prophylaxis on Heparin drip Resident Physician Supervision Note: I was present with Dr. Reed during the history and exam. I discussed the case with the resident and agree with the findings and plan as documented in the note. Any exceptions or clarifications are listed here: 57 y/o M CAD, CHF, ESRD, COPD - present frequently with related complaints. Arrives at ER with persistent central CP which did not respond to NTG @ home. He was observed in the ER for a few hours and serial troponins were obtained. A repeat trop did show an upward trend. OE AAO x 3 S1,2 R CTAB NT - abdomen is distended, soft - due to peritoneal dialysis No CCE No deficits P: Pt placed on Heparin as we trend his troponin - if upward is trend is confirmed continues or CP recurs, cardio should be consulted There is a degree of volume overload clinically which may also raise his troponin. May require additional diuresis or an adjustment in dialysis soln if he remains in hospital - would allow dialysis to run it's course for now - he does not c/o SOB No current evidence of COPD exacerbation - cont inhalers as prescribed Documented By: Maximiliano Briseno Level of Care Telemetry Resuscitation Status FULL RESUSCITATION VTE Prophylaxis VTE Risk Assessment Done? Y/N: Yes Risk Level: Moderate Given or contraindicated: Other Anticoagulation (Heparin drip) Note Total Time: Critical Care 30 - 74 minutes Resident Tracking Resident Involvement: Resident Care Provided Care Provided: Adult Hospital Medicine
--- NOTE | 2017-10-05 06:40 | DIAGNOSTIC IMAGING REPORT ---
CHEST ONE VIEW PORTABLE HISTORY: 57 years-old Male chest pain acute atypical chest pain COMPARISON: Chest radiograph 09/19/2017 TECHNIQUE: Portable AP view of the chest FINDINGS: Cardiac silhouette is again enlarged. Prior median sternotomy. Surgical clips project over the left mediastinum possibly from prior CABG. The superiormost sternotomy wire is again fractured. Right subclavian pacer/AICD appears unchanged. There is no pneumothorax, pleural effusion, focal airspace consolidation or overt pulmonary edema. The bones of the chest appear grossly intact. Degenerative changes are noted within the shoulders and spine. IMPRESSION: Cardiomegaly without acute process. The above report was generated using voice recognition software. It may contain grammatical, syntax or spelling errors. Electronically signed by: Samir Landin M.D. 10/05/2017 6:38 AM Dictated Date/Time: 10/05/2017 6:37 AM
[2017-10-05] MEDS: ALBUT/IPRATROP 3MG/0.5MG NEB 3 ML VIAL INH SCH ×4 (07:05→19:40)
[2017-10-05] MEDS: PANTOprazole SOD 40 MG TAB PO SCH (08:12)
[2017-10-05] MEDS: ASPIRIN 325 MG ECTAB PO SCH (08:12)
[2017-10-05] MEDS: ROPINIROLE HCL 1 MG TAB PO SCH ×2 (08:12→19:51)
[2017-10-05] MEDS: FLUTICASONE/SALMETEROL 250/50 (ADVAIR) 14 PUFF/1 INHALER INH SCH ×2 (08:12→19:48)
[2017-10-05] MEDS: CIPROFLOXACIN 250 MG TAB PO SCH ×2 (08:12→19:50)
[2017-10-05] MEDS: CARVEDILOL 6.25 MG TAB PO SCH ×2 (08:12→19:50)
[2017-10-05] MEDS: TAMSULOSIN HCL 0.4 MG CAP PO SCH (08:13)
[2017-10-05] MEDS ORDERED: HEPARIN IV BOLUS 4,500 UNIT in SYRINGE 0 ML IV ONE ×2 (11:15→19:15)
[2017-10-05] MEDS: HEPARIN 25,000 UNIT/500ML D5W 500 ML IV PRN (12:04)
--- NOTE | 2017-10-05 12:24 | Nephrology Consultation ---
Nephrology Consultation Date & Providers Date of Consultation: Oct 05, 2017. Primary Care Provider: Arielle Whittaker MD Referring Provider: Reason for Consultation Management of peritoneal dialysis for patient end-stage renal disease on PD, admitted with chest pain History of Present Illness Sly Caro is a 57-year-old gentlemen with past medical history significant for hypertension, known coronary artery disease status post CABG, COPD and ESRD on PD admitted with atypical chest pain. Nephrology consult was requested to manage hemodialysis. Electronic medical records including labs and imaging are reviewed in detail during patient's visit. Candelario started having chest pain last night around 10: 30 to 10: 40 p.m., 01/28 substernal chest pain. He took nitroglycerin without any resolution of symptoms and presented to the ED for further evaluation. He was given 4 baby aspirin and another dose of nitroglycerin which helped with his symptoms and since then he did not have any further episode of chest pain or shortness of Breath Troponin was initially mildly elevated which increased further now to above 6, EKG suggestive of evolving septal infarct. Currently he is on heparin drip. He was recently admitted to the hospital from 09/18 to 09/22 with chest pain, at that time evaluated by Cardiology. He had 2D echo done on 09/19/17 showing EF 25-30%, getting grade 3 diastolic dysfunction. He was managed conservatively and was discharged with a plan that he may need further intervention if continues to be symptomatic. He had cath in January 2017: Chronic occlusion of the RCA, chronic occlusion of mid LAD, with patent HDZ to LAD graft, patent SVG to OM, diffuse [place] vessel disease. There was 80% proximal OM2; 90% distal OM2 stenosis after SVG anastomosis. Candelario has history of end-stage renal disease and has been on continuous cyclic peritoneal dialysis since January 2013. he was initially started on hemodialysis in August 2012 for end-stage renal disease secondary to decompensated right heart failure. He has been doing very well on dialysis. He has left radiocephalic AVF. His dialysis has been smooth, did not have any abdominal pain, constipation, fever or chills. Recently he has weight increased slightly from his dry weight around 167 pound to 171 and he has been using dull fax 4.25 and 2.5 percent alternatively. Currently he is feeling fine otherwise, feels at his baseline and denies any nausea, anorexia, constipation or diarrhea. BP has been stable since admission. Denies any shortness of breath or chest pain. Allergies Coded Allergies: Penicillins (Verified Allergy, Severe, HIVES, 10/05/17) BEE STING (Verified Allergy, Intermediate, SWELLING, 10/05/17) DOES NOT REQUIRE EPIPEN PER FAMILY Inpatient Medications Current Inpatient Medications Medications (Trade) Dose Ordered Sig/Shasha Route Start Time Stop Time Status Last Admin Dose Admin Acetaminophen (Tylenol Tab) 650 mg Q4H PRN PO 10/05/17 03:15 11/04/17 03:14 Magnesium Hydroxide (Milk Of Magnesia Susp) 30 ml Q12H PRN PO 10/05/17 03:15 11/04/17 03:14 Ondansetron HCl (Zofran Inj) 4 mg Q6H PRN IV 10/05/17 03:15 11/04/17 03:14 Nitroglycerin (Nitrostat Tab) 0.4 mg UD PRN SL 10/05/17 03:15 11/04/17 03:14 Aspirin (Ecotrin Tab) 325 mg QAM PO 10/05/17 09:00 11/04/17 08:59 10/05/17 08:12 325 MG Polyethylene (Miralax Powder Packet) 17 gm DAILY PRN PO 10/05/17 03:15 11/04/17 03:14 Carvedilol (Coreg Tab) 6.25 mg BID PO 10/05/17 09:00 11/04/17 08:59 10/05/17 08:12 6.25 MG Ciprofloxacin (Ciprofloxacin Tab) 250 mg BID PO 10/05/17 09:00 10/15/17 08:59 10/05/17 08:12 250 MG Salmeterol Xinafoate/ Fluticasone (Advair Diskus 250/50 Inh) 1 puff Q12 INH 10/05/17 09:00 11/04/17 08:59 10/05/17 08:12 1 PUFF Gabapentin (Neurontin Cap) 300 mg HS PO 10/05/17 21:00 11/04/17 20:59 Montelukast Sodium (Singulair Tab) 10 mg QPM PO 10/05/17 21:00 11/04/17 20:59 Pantoprazole Sodium (Protonix Tab) 40 mg QAM PO 10/05/17 09:00 11/04/17 08:59 10/05/17 08:12 40 MG Ropinirole HCl (Requip Tab) 2 mg QPM PO 10/05/17 21:00 11/04/17 20:59 Ropinirole HCl (Requip Tab) 1 mg QAM PO 10/05/17 09:00 11/04/17 08:59 10/05/17 08:12 1 MG Rosuvastatin Calcium (Crestor Tab) 20 mg HS PO 10/05/17 21:00 11/04/17 20:59 Sertraline HCl (Zoloft Tab) 50 mg QPM PO 10/05/17 21:00 11/04/17 20:59 Tamsulosin HCl (Flomax Cap) 0.4 mg QAM PO 10/05/17 09:00 11/04/17 08:59 10/05/17 08:13 0.4 MG Albuterol/ Ipratropium (Duoneb) 3 ml QIDR INH 10/05/17 08:00 11/04/17 07:59 10/05/17 07:05 3 ML Heparin Sodium/ Dextrose 500 ml @ 17 mls/hr Q24H PRN IV 10/05/17 04:30 11/04/17 04:29 Family History Cancer Diabetes mellitus Heart disease Hypertension Social History Smoking Status: Former Smoker Drug Use: none Marital Status: Housing Status: lives with family Occupation: disabled Review of Systems A complete review of systems was performed. Pertinent positives are noted above. All other systems are negative. Physical Exam Date Time Temp Pulse Resp B/P (MAP) Pulse Ox O2 Delivery O2 Flow Rate FiO2 10/05/17 07:31 36.6 74 20 112/70 (84) 98 Room Air 10/05/17 07:06 94 15 93 Room Air 10/05/17 05:35 36.7 67 18 114/67 100 Room Air 10/05/17 04:17 68 17 123/65 97 Room Air 10/05/17 03:27 67 112/59 98 Room Air 10/05/17 03:27 68 10/05/17 01:44 74 16 127/70 98 Room Air 10/05/17 01:07 78 18 10/05/17 00:22 81 18 99 10/05/17 00:10 98 Room Air 10/05/17 00:07 98 Room Air 10/04/17 23:58 83 10/04/17 23:56 36.5 78 19 106/88 99 Room Air 10/04/17 23:53 134/71 GENERAL: Middle-aged male, AAA x 3, pleasant, healthy-appearing, not in any distress. HEENT: Atraumatic, normocephalic. NECK: Supple, no JVD, no carotid bruit appreciated. ENT: No sinus tenderness MOUTH and THROAT: Moist oral mucosa, no oral ulcer or pharyngeal erythema RESPIRATORY: Normal breathing efforts, no accessory muscle use, has crackles bilaterally, no wheeze CARDIOVASCULAR: S1, S2 normal, rate rhythm regular. ABDOMEN: Soft, nontender, obese, positive bowel sound. PD catheter site area nontender, no erythema. MUSCULOSKELETAL: No CVA tenderness. No joint swelling, erythema or tenderness. Normal range of motion. SKIN: No skin rash EXTREMITY: 1+ bilateral lower extremity edema NEURO: No gross focal neurological deficit, speech fluent. PSYCHIATRY: Normal mood and judgment Laboratory Results Last 24 Hours Test 10/05/17 00:00 10/05/17 00:34 10/05/17 00:58 10/05/17 01:56 White Blood Count 11.65 K/uL Red Blood Count 4.65 M/uL Hemoglobin 13.6 g/dL Hematocrit 40.0 % Mean Corpuscular Volume 86.0 fL Mean Corpuscular Hemoglobin 29.2 pg Mean Corpuscular Hemoglobin Concent 34.0 g/dl Platelet Count 171 K/uL Mean Platelet Volume 12.6 fL Neutrophils (%) (Auto) 89.9 % Lymphocytes (%) (Auto) 4.9 % Monocytes (%) (Auto) 4.7 % Eosinophils (%) (Auto) 0.1 % Basophils (%) (Auto) 0.1 % Neutrophils # (Auto) 10.48 K/uL Lymphocytes # (Auto) 0.57 K/uL Monocytes # (Auto) 0.55 K/uL Eosinophils # (Auto) 0.01 K/uL Basophils # (Auto) 0.01 K/uL RDW Standard Deviation 47.1 fL RDW Coefficient of Variation 15.2 % Immature Granulocyte % (Auto) 0.3 % Immature Granulocyte # (Auto) 0.03 K/uL Prothrombin Time 10.8 SECONDS Prothromb Time International Ratio 1.0 Activated Partial Thromboplast Time 26.4 SECONDS Partial Thromboplastin Ratio 1.0 Sodium Level 130 mmol/L Potassium Level 4.2 mmol/L Chloride Level 96 mmol/L Carbon Dioxide Level 23 mmol/L Anion Gap 11.0 mmol/L Blood Urea Nitrogen 35 mg/dl Creatinine 2.85 mg/dl Estimated GFR () 27.4 Estimated GFR (Non- 23.6 BUN/Creatinine Ratio 12.4 Random Glucose 552 mg/dl Calcium Level 8.3 mg/dl Total Bilirubin 1.2 mg/dl Direct Bilirubin 0.6 mg/dl Aspartate Amino Transf (AST/SGOT) 66 U/L Alanine Aminotransferase (ALT/SGPT) 155 U/L Alkaline Phosphatase 641 U/L Total Creatine Kinase 120 U/L Creatine Kinase MB 3.4 ng/ml Creatine Kinase MB Ratio 2.8 Troponin I 0.215 ng/ml Total Protein 6.4 gm/dl Albumin 2.8 gm/dl Beta-Hydroxybutyric Acid 1.81 mg/dL Bedside Troponin I 0.180 ng/ml 0.870 ng/ml Bedside Glucose 420 mg/dl 395 mg/dl Test 10/05/17 04:30 10/05/17 06:48 Bedside Glucose 199 mg/dl 145 mg/dl Janine Palomino Is a 57-year-old gentlemen with end-stage renal disease on CCPD was admitted to the hospital last night with chest pain. Currently chest pain resolved, has been asymptomatic. Troponin has been increasing and EKG is suggestive of evolving septal infarct. Has history of coronary artery disease previously had CABG done, has known coronary artery disease, has ischemic cardiomyopathy EF 25-30%, grade 3 diastolic dysfunction. Last catheterization was in February 2017. He was recently admitted to the hospital and was discharged just 2 weeks ago with chest pain when he was managed with conservative management. Has history of COPD, obstructive sleep apnea . Has hypertension and diabetes which seems to be well controlled. Has end-stage renal disease, on CCPD, did not have dialysis last night. Currently seems slightly volume overloaded however blood pressure stable, breathing comfortably. Recommendations --currently seems clinically stable, chest pain-corby on heparin dripe, However there is concern for evolving infarct and troponin has been increasing, currently --electrolyte, blood pressure and volume status stable --will start on cycler from tonight, since he has seems to be volume overloaded , will use still flex 2.5 and 4.25 alternatively --avoid further IV fluid --dose medications for GFR less than 10 --discussed with dialysis nurses gave order for peritoneal dialysis tonalmita Thank you for allowing me to participate in your patient's care. It was a pleasure to see Candelario
--- NOTE | 2017-10-05 13:13 | CARDIOLOGY CONSULTATION ---
DATE OF CONSULTATION: 10/05/2017 REFERRING: Dr. Davalos, Dr. Ferrera. INDICATIONS: Chest pain, elevated troponin. HISTORY OF PRESENT ILLNESS: The patient is a complex 57-year-old male well known to me. He carries a history of severe diabetic atherosclerotic coronary artery disease, status post prior coronary bypass grafting in 2005, receiving a HDZ graft to the LAD and a saphenous vein graft to left circumflex with poor surgical targets and incomplete revascularization. He carries an underlying history of chronic class 2-3 angina pectoris, as well as chronic end-stage renal disease on peritoneal dialysis. Troponins are chronically elevated. He has undergone prior diagnostic cardiac catheterization most recently in January of 2017, which demonstrated severe [place]urok vessel disease with poor surgical or catheter intervention targets. He has been managed medically for such. Underlying medical problems in addition to above include asthmatic lung disease with frequent exacerbations, past history of longstanding diabetes mellitus type 1 with nephropathy, on indwelling insulin pump, past demand based non-ST segment elevation myocardial infarctions in the setting of acute tachycardia and respiratory distress. The patient presents this admission noting having been seen for exacerbation of bronchitis. The day prior to admission was begun on antibiotic and prednisone therapy but notes took his first dose of prednisone a.m. of admission. He generally felt well day but noted that he does not reloaded his insulin pump and went out to dinner and while sitting at home was found to have significantly elevated sugars, he reloaded insulin pump and while watching television developed a sudden onset of hard substernal chest pain during an emotional stressful period on the show that he was watching. Symptoms spontaneously resolved. Due to elevation in troponin, he was begun on heparin and aspirin. He notes no further symptoms or complaints overnight. Continues to have a bronchitic cough. Notes no fevers or chills currently. Notes no melena, hematochezia, dysuria or hematuria. Has had some slight increase in lower extremity edema but notes no acute weight gain. Notes no bleeding difficulties. Notes no sense of tachypalpitations. Notes no syncope or near syncope. ALLERGIES: BEE STINGS AND PENICILLIN. MEDICATIONS: Albuterol inhaler, aspirin 81 mg per day, carvedilol 6.25 b.i.d., Cipro 250 b.i.d. x5 days, Advair Diskus, Lasix 40 mg b.i.d., gabapentin 300 mg at bedtime, insulin, lactulose p.r.n., lorazepam p.r.n., Singulair 10 mg q.p.m., pantoprazole 40 mg q.a.m., Requip 1 mg q.a.m. and 2 mg q.p.m., rosuvastatin 20 mg at bedtime, sertraline 50 mg q.a.m., tamsulosin p.r.n., trazodone p.r.n. and recently as noted prednisone 40 mg with planned 5-day taper and then 20 mg for 5 days. PAST SURGICAL HISTORY: Notable for prior cholecystectomy, repair of incarcerated hernia, coronary artery bypass grafting as described in the remote past, multiple peritoneal dialysis placements in the left arm AV fistula. FAMILY HISTORY: Positive for heart disease. SOCIAL HISTORY: The patient is a nonsmoker, nondrinker, remains moderately active about his home. PHYSICAL EXAMINATION: VITAL SIGNS: Heart rate is 71, blood pressure is 114/75. Telemetry reveals no tachyarrhythmias of significance. HEENT: Normocephalic, atraumatic. NECK: Thick. There is no distinct jugular venous distention. LUNGS: Reveal coarse rhonchorous sounds are bibasilar, worse with cough. CARDIOVASCULAR: Regular with normal S1, S2. There is no murmur or rub. ABDOMEN: Soft, nontender. There is no palpable hepatosplenomegaly, though the abdomen is distended secondary to dialysate. EXTREMITIES: Without cyanosis or clubbing. There is 1-2+ lower extremity edema. LABORATORY DATA: White cell count is 11.6, hemoglobin is 13.6. Sodium is 130, potassium is 4.2, chloride 96, bicarbonate is 23, BUN is 35, creatinine is 2.85, glucose on presentation was 552. AST and ALT are mildly elevated as his alkaline phosphatase. Troponins are trending upward, but chronically elevated. Albumin level is 2.8. IMAGING DATA: Chest x-ray revealed no infiltrate or edema. EKG reveals intermittent atrial pacing, septal Q-waves unchanged from prior studies, chronic lateral ST segment depression. IMPRESSION: A very complex 57-year-old male with underlying history of ischemic cardiomyopathy, longstanding ischemic heart disease with chronic class 2-3 angina pectoris, prior dual chamber pacer defibrillator implantation, who last night had sudden hard pain in the chest, after a meal and elevated glucoses. Troponins are elevated on initial ER presentation, though troponins are chronically elevated. There does appear to be an upward trend. I agree with anticoagulation with heparin. Given the sudden onset of pain, will interrogate device to exclude a tachyarrhythmia, etiology. The patient has a limited surgical or procedural revascularization targets. PLAN: We will continue to be medical management and treatment of underlying illnesses. The patient also carries a history of chronic gastroesophageal reflux and prednisone may have had a precipitating cause. We will follow patient closely in hospital, anticipate anticoagulation with heparin at least additional 24 hours. Continue current medications as ordered.
--- NOTE | 2017-10-05 17:18 | Family Medicine Progress Note ---
Progress Note Date of Service Oct 05, 2017. Subjective Pt evaluation today including: conversation w/ patient, physical exam, chart review, lab review, review of inpatient medication list Pain: Patient denies pain PO Intake: tolerating well Voiding: no voiding problems Patient reports he feels "100%". Denies chest pain, difficulty breathing, abdominal pain Constitutional: No fever, No chills, No sweats, No weight loss, No weakness , No fatigue, No problem reported Respiratory: + cough, + dyspnea on exertion, No see HPI, No sputum, No wheezing, No shortness of breath, No dyspnea at rest, No hemoptysis, No problem reported Cardiovascular: No chest pain, No orthopnea, No PND, No edema, No claudication, No palpitations, No problem reported Abdomen: No pain, No nausea, No vomiting, No diarrhea, No constipation, No GI bleeding, No problem reported All Other Systems: Reviewed and Negative Medications Current Inpatient Medications Medications (Trade) Dose Ordered Sig/Hsasha Route Start Time Stop Time Status Last Admin Dose Admin Acetaminophen (Tylenol Tab) 650 mg Q4H PRN PO 10/05/17 03:15 11/04/17 03:14 Magnesium Hydroxide (Milk Of Magnesia Susp) 30 ml Q12H PRN PO 10/05/17 03:15 11/04/17 03:14 Ondansetron HCl (Zofran Inj) 4 mg Q6H PRN IV 10/05/17 03:15 11/04/17 03:14 Nitroglycerin (Nitrostat Tab) 0.4 mg UD PRN SL 10/05/17 03:15 11/04/17 03:14 Aspirin (Ecotrin Tab) 325 mg QAM PO 10/05/17 09:00 11/04/17 08:59 10/05/17 08:12 325 MG Polyethylene (Miralax Powder Packet) 17 gm DAILY PRN PO 10/05/17 03:15 11/04/17 03:14 Carvedilol (Coreg Tab) 6.25 mg BID PO 10/05/17 09:00 11/04/17 08:59 10/05/17 08:12 6.25 MG Ciprofloxacin (Ciprofloxacin Tab) 250 mg BID PO 10/05/17 09:00 10/15/17 08:59 10/05/17 08:12 250 MG Salmeterol Xinafoate/ Fluticasone (Advair Diskus 250/50 Inh) 1 puff Q12 INH 10/05/17 09:00 11/04/17 08:59 10/05/17 08:12 1 PUFF Gabapentin (Neurontin Cap) 300 mg HS PO 10/05/17 21:00 11/04/17 20:59 Montelukast Sodium (Singulair Tab) 10 mg QPM PO 10/05/17 21:00 11/04/17 20:59 Pantoprazole Sodium (Protonix Tab) 40 mg QAM PO 10/05/17 09:00 11/04/17 08:59 10/05/17 08:12 40 MG Ropinirole HCl (Requip Tab) 2 mg QPM PO 10/05/17 21:00 11/04/17 20:59 Ropinirole HCl (Requip Tab) 1 mg QAM PO 10/05/17 09:00 11/04/17 08:59 10/05/17 08:12 1 MG Rosuvastatin Calcium (Crestor Tab) 20 mg HS PO 10/05/17 21:00 11/04/17 20:59 Sertraline HCl (Zoloft Tab) 50 mg QPM PO 10/05/17 21:00 11/04/17 20:59 Tamsulosin HCl (Flomax Cap) 0.4 mg QAM PO 10/05/17 09:00 11/04/17 08:59 10/05/17 08:13 0.4 MG Albuterol/ Ipratropium (Duoneb) 3 ml QIDR INH 10/05/17 08:00 11/04/17 07:59 10/05/17 11:18 3 ML Heparin Sodium/ Dextrose 500 ml @ 20 mls/hr Q24H PRN IV 10/05/17 04:30 11/04/17 04:29 10/05/17 12:04 20 MLS/HR Objective Vital Signs Date Time Temp Pulse Resp B/P (MAP) Pulse Ox O2 Delivery O2 Flow Rate FiO2 10/05/17 15:46 36.6 70 18 109/66 (80) 95 Room Air 10/05/17 12:00 Room Air 10/05/17 11:18 71 15 98 Room Air 10/05/17 10:44 36.6 71 20 114/75 (88) 99 10/05/17 08:00 Room Air 10/05/17 07:31 36.6 74 20 112/70 (84) 98 Room Air 10/05/17 07:06 94 15 93 Room Air 10/05/17 05:35 36.7 67 18 114/67 100 Room Air 10/05/17 04:17 68 17 123/65 97 Room Air 10/05/17 03:27 67 112/59 98 Room Air 10/05/17 03:27 68 10/05/17 01:44 74 16 127/70 98 Room Air 10/05/17 01:07 78 18 10/05/17 00:22 81 18 99 10/05/17 00:10 98 Room Air 10/05/17 00:07 98 Room Air 10/04/17 23:58 83 10/04/17 23:56 36.5 78 19 106/88 99 Room Air 10/04/17 23:53 134/71 Physical Exam General Appearance: WD/WN, no apparent distress Eyes: normal inspection, PERRL, EOMI ENT: hearing grossly normal, pharynx normal Neck: supple, no JVD, no carotid bruits, trachea midline Respiratory/Chest: chest non-tender, no respiratory distress, no accessory muscle use, + wheezing (end inspiratory) Cardiovascular: regular rate, rhythm, no JVD, no murmur Abdomen: normal bowel sounds, non tender, soft Extremities: normal range of motion, non-tender, no calf tenderness, + pedal edema (2+ chronic, ESRD, pt had not PD in last 24 hrs) Neurologic/Psychiatric: advice clerk II-XII nml as tested, no motor/sensory deficits, alert, normal mood/affect, oriented x 3 Skin: normal color, warm/dry Laboratory Results Last Resulted 10/05/17 00:00 Red Blood Count 4.65, Mean Corpuscular Volume 86.0, Mean Corpuscular Hemoglobin 29.2, Mean Corpuscular Hemoglobin Concent 34.0, Mean Platelet Volume 12.6, Neutrophils (%) (Auto) 89.9, Lymphocytes (%) (Auto) 4.9, Monocytes (%) (Auto) 4.7, Eosinophils (%) (Auto) 0.1, Basophils (%) (Auto) 0.1, Neutrophils # (Auto) 10.48, Lymphocytes # (Auto) 0.57, Monocytes # (Auto) 0.55, Eosinophils # (Auto) 0.01, Basophils # (Auto) 0.01 Last Resulted 10/05/17 00:00 Past 24 Hours Test 10/05/17 00:00 10/05/17 09:33 10/05/17 15:11 Range/Units Creatine Kinase MB 3.4 0.5-3.6 ng/ml Creatine Kinase MB Ratio 2.8 0-3.0 Prothromb Time International Ratio 1.0 0.9-1.1 Prothrombin Time 10.8 9.0-12.0 SECONDS Total Creatine Kinase 120 39-308 U/L Troponin I 0.215 *H 6.610 *H 6.730 *H 0-0.045 ng/ml Assessment and Plan 57 yo M with ESRD on peritoneal dialysis, HTN, COPD, Asthma, poorly controlled DM with insulin pump, ASCVD s/p CABG x2 2005 presenting with Chest pain, found to have elevated troponin on arrival, started on Heparin Drip Chest pain (resolved), Troponin elevation - Chest pain resolved - Troponin Elevation, no acute EKG changes, previously attributed to supply/ demand ischemia - Cardiology consulted, appreciate Recs. Well known to service with consistently elevated trops We will continue to be medical management and treatment of underlying illnesses. The patient also carries a history of chronic gastroesophageal reflux and prednisone may have had a precipitating cause. We will follow patient closely in hospital, anticipate anticoagulation with heparin at least additional 24 hours. Continue current medications as ordered. - Trend Troponin ( .18-->.087-->6.6-->6.7--asymptomatic, with no changes on repeat EKG) - Heparin Drip x 24 hrs at least per cardiology History of ASCVD s/p CABG -restart Statin, Coreg -R/o as contributor to currently Trop elevation, history Chest pain as above ESRD - nephrology consulted, appreciate recs --will start on cycler from tonight, since he has seems to be volume overloaded, will use still flex 2.5 and 4.25 alternatively --avoid further IV fluid --dose medications for GFR less than 10 - uses Peritoneal dialysis at home nightly - Dialysis management per Nephrology/AM team Diabetes/ Neuropathy - Hyperglycemia exacerbated by recent steroid usage. Have stabilized since admission - may use own Insulin pump - Hyperglycemia likely secondary to prednisone in addition to poor compliance - restart Gabapentin Asthma - wheezing on exam - restart Advair Montelukast - duonebs GERD -Protonix Prostatitis - Continue Ciprofloxacin (1month course) Depression/Anxiety Zoloft DVT Prophylaxis on Heparin drip Code: Full Dispo: tele Resident Tracking Resident Involvement: Resident Care Provided Care Provided: Adult Hospital Medicine
[2017-10-05 18:34] LABS: PTT PATIENT 31.7 SECONDS (21.0-31.0)
[2017-10-05] MEDS: ROSUVASTATIN CALCIUM 20 MG TAB PO SCH (19:49)
[2017-10-05] MEDS: MONTELUKAST SOD 10 MG TAB PO SCH (19:50)
[2017-10-05] MEDS: GABAPENTIN 300 MG CAP PO SCH (19:50)
[2017-10-05] MEDS: SERTRALINE HCL 50 MG TAB PO SCH (19:51)
[2017-10-06] VITALS (11 sets, daily range): BP systolic 116–124; BP diastolic 73–79; PULSE 65–90; TEMP 36.4–37.1; O2SAT 97–100; Ht 162.6 cm; Wt 82.1 kg
[2017-10-06 00:41] LABS: PTT PATIENT 39.3 SECONDS (21.0-31.0)
[2017-10-06] MEDS ORDERED: HEPARIN IV BOLUS 4,000 UNIT in SYRINGE 0 ML IV ONE (01:30)
--- NOTE | 2017-10-06 01:30 | Progress Note ---
Progress Note Date of Service Oct 06, 2017. Progress Note Blood culture was found to be positive for gram positive cocci. Given patient's normal vitals, lack of significant white count, this may be contamination. decision on antibiotic therapy at discretion of AM team.
[2017-10-06] MEDS: HEPARIN 25,000 UNIT/500ML D5W 500 ML IV PRN ×2 (01:42→05:03)
[2017-10-06] MEDS ORDERED: HEPARIN BOLUS IV ONE (01:45)
[2017-10-06 05:47] LABS: HEMATOCRIT 38.6 % (42-52); HEMOGLOBIN 13.5 g/dL (14.0-18.0); MEAN CELL VOLUME 83.9 fL (80-100); MEAN CORPUSCULAR HEMOGLOBIN 29.3 pg (25-34); MEAN PLATELET VOLUME 12.2 fL (7.4-10.4); PLATELET COUNT 165 K/uL (130-400); RED CELL DISTRIBUTION WIDTH CV 15.6 % (11.5-14.5); RED CELL DISTRIBUTION WIDTH SD 46.9 fL (36.4-46.3); WHITE BLOOD COUNT 6.42 K/uL (4.8-10.8)
[2017-10-06 06:18] LABS: CALCIUM 8.7 mg/dl (8.5-10.1); CREATININE 2.38 mg/dl (0.60-1.40); POTASSIUM 3.3 mmol/L (3.5-5.1)
[2017-10-06 07:22] LABS: PTT PATIENT 44.5 SECONDS (21.0-31.0)
[2017-10-06] MEDS: ALBUT/IPRATROP 3MG/0.5MG NEB 3 ML VIAL INH SCH ×4 (07:22→19:02)
[2017-10-06] MEDS: FLUTICASONE/SALMETEROL 250/50 (ADVAIR) 14 PUFF/1 INHALER INH SCH ×2 (08:07→21:39)
[2017-10-06] MEDS: ASPIRIN 325 MG ECTAB PO SCH (08:08)
[2017-10-06] MEDS: TAMSULOSIN HCL 0.4 MG CAP PO SCH (08:08)
[2017-10-06] MEDS: CIPROFLOXACIN 250 MG TAB PO SCH ×2 (08:08→21:40)
[2017-10-06] MEDS: CARVEDILOL 6.25 MG TAB PO SCH ×2 (08:08→21:40)
[2017-10-06] MEDS: PANTOprazole SOD 40 MG TAB PO SCH (08:08)
[2017-10-06] MEDS: ROPINIROLE HCL 1 MG TAB PO SCH ×2 (08:09→21:41)
[2017-10-06] MEDS ORDERED: VANCOMYCIN CONSULT ACTIVE PRN (09:03)
[2017-10-06] MEDS ORDERED: POTASSIUM CHLORIDE 20 MEQ TABCR PO STA (09:14)
[2017-10-06] MEDS ORDERED: VANCOMYCIN INJ 2,000 MG in SODIUM CHLORIDE 0.9% 500ML 500 ML IV SCH (09:30)
[2017-10-06] MEDS ORDERED: HEPARIN IV BOLUS 3,000 UNIT in SYRINGE 0 ML IV ONE (11:00)
--- NOTE | 2017-10-06 12:01 | Nephrology Progress Note ---
Nephrology Progress Note Date of Service Oct 06, 2017. Chief Complaint Follow-up for peritoneal dialysis for patient end-stage renal disease on PD, admitted with chest pain Subjective Candelario was seen and examined in his room this morning. Overall he is feeling well , no further episode of chest pain or shortness of Breath. No fever or chills. One out of 2 blood culture came positive for gram-positive cocci side, and started on IV vancomycin and repeat blood culture done. Had dialysis last night had but 2.6 liters UF, blood pressure and volume status improved. Currently electrolyte acceptable. Review of Systems A complete review of systems was performed. Pertinent positives are noted above. All other systems are negative. Vital Signs Last 8 Hrs Date Time Temp Pulse Resp B/P (MAP) Pulse Ox O2 Delivery O2 Flow Rate FiO2 10/06/17 11:43 36.4 70 18 122/77 (92) 100 10/06/17 11:35 72 16 98 Room Air 10/06/17 08:00 36.6 70 18 120/74 (89) 98 Room Air 10/06/17 08:00 Room Air 10/06/17 08:00 36.6 70 18 120/74 (89) 10/06/17 07:22 72 16 98 Room Air 10/06/17 04:00 Room Air Last Recorded Weight Weight (Kilograms): 82.400 Physical Exam GENERAL: Middle-aged male, AAA x 3, pleasant, healthy-appearing, not in any distress. NECK: Supple, no JVD. RESPIRATORY: Normal breathing efforts, no accessory muscle use, clear to auscultation bilaterally, no wheezes or rales. CARDIOVASCULAR: S1, S2 normal, rate rhythm regular. EXTREMITY: No lower extremity edema NEURO: speech fluent. PSYCHIATRY: Normal mood and judgment Family History Cancer Diabetes mellitus Heart disease Hypertension Social History Smoking Status: Former smoker Drug Use: none Marital Status: Housing Status: lives with family Occupation: disabled Laboratory Results Past 24 Hours 10/06/17 05:12 10/06/17 05:12 Test 10/05/17 15:11 10/05/17 16:20 10/05/17 18:12 10/05/17 19:55 Troponin I 6.730 ng/ml (0-0.045) Bedside Glucose 78 mg/dl (70-99) 77 mg/dl (70-99) Activated Partial Thromboplast Time 31.7 SECONDS (21.0-31.0) Partial Thromboplastin Ratio 1.2 Test 10/05/17 21:15 10/06/17 00:22 10/06/17 05:12 10/06/17 06:46 Troponin I 5.000 ng/ml (0-0.045) 3.730 ng/ml (0-0.045) Activated Partial Thromboplast Time 39.3 SECONDS (21.0-31.0) Partial Thromboplastin Ratio 1.5 Red Blood Count 4.60 M/uL (4.7-6.1) Mean Corpuscular Volume 83.9 fL (80-100) Mean Corpuscular Hemoglobin 29.3 pg (25-34) Mean Corpuscular Hemoglobin Concent 35.0 g/dl (32-36) RDW Standard Deviation 46.9 fL (36.4-46.3) RDW Coefficient of Variation 15.6 % (11.5-14.5) Mean Platelet Volume 12.2 fL (7.4-10.4) Anion Gap 10.0 mmol/L (3-11) Est Creatinine Clear Calc Drug Dose 33.6 ml/min Estimated GFR () 34.0 Estimated GFR (Non- 29.4 BUN/Creatinine Ratio 15.6 (10-20) Calcium Level 8.7 mg/dl (8.5-10.1) Bedside Glucose 255 mg/dl (70-99) Test 10/06/17 06:51 10/06/17 11:28 Activated Partial Thromboplast Time 44.5 SECONDS (21.0-31.0) Partial Thromboplastin Ratio 1.7 Bedside Glucose 116 mg/dl (70-99) Allergies Coded Allergies: Penicillins (Verified Allergy, Severe, HIVES, 10/05/17) BEE STING (Verified Allergy, Intermediate, SWELLING, 10/05/17) DOES NOT REQUIRE EPIPEN PER FAMILY Medications Current Inpatient Medications Medications (Trade) Dose Ordered Sig/Shasha Route Start Time Stop Time Status Last Admin Dose Admin Acetaminophen (Tylenol Tab) 650 mg Q4H PRN PO 10/05/17 03:15 11/04/17 03:14 10/05/17 19:55 650 MG Magnesium Hydroxide (Milk Of Magnesia Susp) 30 ml Q12H PRN PO 2/15/18 03:15 11/04/17 03:14 Ondansetron HCl (Zofran Inj) 4 mg Q6H PRN IV 10/05/17 03:15 11/04/17 03:14 Nitroglycerin (Nitrostat Tab) 0.4 mg UD PRN SL 10/05/17 03:15 11/04/17 03:14 Aspirin (Ecotrin Tab) 325 mg QAM PO 10/05/17 09:00 11/04/17 08:59 10/06/17 08:08 325 MG Polyethylene (Miralax Powder Packet) 17 gm DAILY PRN PO 10/05/17 03:15 11/04/17 03:14 Carvedilol (Coreg Tab) 6.25 mg BID PO 10/05/17 09:00 11/04/17 08:59 10/06/17 08:08 6.25 MG Ciprofloxacin (Ciprofloxacin Tab) 250 mg BID PO 10/05/17 09:00 10/15/17 08:59 10/06/17 08:08 250 MG Salmeterol Xinafoate/ Fluticasone (Advair Diskus 250/50 Inh) 1 puff Q12 INH 10/05/17 09:00 11/04/17 08:59 10/06/17 08:07 1 PUFF Gabapentin (Neurontin Cap) 300 mg HS PO 10/05/17 21:00 11/04/17 20:59 10/05/17 19:50 300 MG Montelukast Sodium (Singulair Tab) 10 mg QPM PO 10/05/17 21:00 11/04/17 20:59 10/05/17 19:50 10 MG Pantoprazole Sodium (Protonix Tab) 40 mg QAM PO 10/05/17 09:00 11/04/17 08:59 10/06/17 08:08 40 MG Ropinirole HCl (Requip Tab) 2 mg QPM PO 10/05/17 21:00 11/04/17 20:59 10/05/17 19:51 2 MG Ropinirole HCl (Requip Tab) 1 mg QAM PO 10/05/17 09:00 11/04/17 08:59 10/06/17 08:09 1 MG Rosuvastatin Calcium (Crestor Tab) 20 mg HS PO 10/05/17 21:00 11/04/17 20:59 10/05/17 19:49 20 MG Sertraline HCl (Zoloft Tab) 50 mg QPM PO 10/05/17 21:00 11/04/17 20:59 10/05/17 19:51 50 MG Tamsulosin HCl (Flomax Cap) 0.4 mg QAM PO 10/05/17 09:00 11/04/17 08:59 10/06/17 08:08 0.4 MG Albuterol/ Ipratropium (Duoneb) 3 ml QIDR INH 10/05/17 08:00 11/04/17 07:59 10/06/17 11:35 3 ML Heparin Sodium/ Dextrose 500 ml @ 27 mls/hr [id number] PRN IV 10/05/17 04:30 11/04/17 04:29 10/06/17 05:03 26 MLS/HR Miscellaneous Information (Consult) 1 ea UD PRN N/A 10/06/17 09:03 11/05/17 09:02 Vancomycin HCl 2000 mg/Sodium Chloride 540 ml @ 200 mls/hr 0930 IV 10/06/17 09:30 10/06/17 12:11 10/06/17 09:42 200 MLS/HR Janine Palomino Is a 57-year-old gentlemen with end-stage renal disease on CCPD was admitted to the hospital last night with chest pain. Currently chest pain resolved, has been asymptomatic. Troponin has been increasing and EKG is suggestive of evolving septal infarct. Has history of coronary artery disease previously had CABG done, has known coronary artery disease, has ischemic cardiomyopathy EF 25-30%, grade 3 diastolic dysfunction. Last catheterization was in February 2017. He was recently admitted to the hospital and was discharged just 2 weeks ago with chest pain when he was managed with conservative management. Has history of COPD, obstructive sleep apnea . Has hypertension and diabetes which seems to be well controlled. Has end-stage renal disease, on CCPD, did not have dialysis last night. Currently seems slightly volume overloaded however blood pressure stable, breathing comfortably. Recommendations --potassium chloride 40 making milliequivalent p.o. x1 dose now --currently seems clinically stable, chest pain-free, plan to discontinue heparin drip this morning --electrolyte, blood pressure and volume status stable --continue on cycler will use Delflex 2.5 and 4.25 alternatively --avoid further IV fluid --dose medications for GFR less than 10 Will follow
[2017-10-06] MEDS ORDERED: INSPMPNVLG (12:39)
[2017-10-06] MEDS ORDERED: INSULIN ASPART 100 UNITS/ML VIAL SC PRN (13:15)
--- NOTE | 2017-10-06 14:08 | Pharmacy Progress Note ---
Pharmacy Antibiotic Consult Date of Service: Oct 06, 2017. Pharmacy Dosing Scope Pharmacy is consulted to initiate Vancomycin IV dosing therapy, order appropriate labs and adjust drug dose/frequency. Subjective The patient is a 57 year old male admitted for chest pain on Oct 05, 2017 at 03: 45. Objective Height (Feet): 5 Height (Inches): 4.00 Weight (Kilograms): 82.400 Lab Results (24hrs): Test 10/05/17 21:15 10/06/17 00:22 10/06/17 05:12 10/06/17 06:46 Troponin I 5.000 ng/ml (0-0.045) 3.730 ng/ml (0-0.045) Activated Partial Thromboplast Time 39.3 SECONDS (21.0-31.0) Partial Thromboplastin Ratio 1.5 White Blood Count 6.42 K/uL (4.8-10.8) Red Blood Count 4.60 M/uL (4.7-6.1) Hemoglobin 13.5 g/dL (14.0-18.0) Hematocrit 38.6 % (42-52) Mean Corpuscular Volume 83.9 fL (80-100) Mean Corpuscular Hemoglobin 29.3 pg (25-34) Mean Corpuscular Hemoglobin Concent 35.0 g/dl (32-36) RDW Standard Deviation 46.9 fL (36.4-46.3) RDW Coefficient of Variation 15.6 % (11.5-14.5) Platelet Count 165 K/uL (130-400) Mean Platelet Volume 12.2 fL (7.4-10.4) Sodium Level 134 mmol/L (136-145) Potassium Level 3.3 mmol/L (3.5-5.1) Chloride Level 100 mmol/L (98-107) Carbon Dioxide Level 24 mmol/L (21-32) Anion Gap 10.0 mmol/L (3-11) Blood Urea Nitrogen 37 mg/dl (7-18) Creatinine 2.38 mg/dl (0.60-1.40) Est Creatinine Clear Calc Drug Dose 33.6 ml/min Estimated GFR () 34.0 Estimated GFR (Non- 29.4 BUN/Creatinine Ratio 15.6 (10-20) Random Glucose 296 mg/dl (70-99) Calcium Level 8.7 mg/dl (8.5-10.1) Bedside Glucose 255 mg/dl (70-99) Test 10/06/17 06:51 10/06/17 11:28 Activated Partial Thromboplast Time 44.5 SECONDS (21.0-31.0) Partial Thromboplastin Ratio 1.7 Bedside Glucose 116 mg/dl (70-99) Assessment & Plan Assessment 57 year old male with COPD, asthma, poorly controlled DM, and Stage III CKD, on nightly peritoneal dialysis admitted with chest pain. * Pt on a one month course cipro 500mg bid for prostatitis * Blood cultures drawn. * 1 of 2 cultures showing gram positive cocci which could be a possible contaminant * Repeat blood cultures x 2 drawn 10/06. * Pt does peritoneal dialysis nightly and is reportedly off PD by 7 or 8 am. * Random vanc level will be ordered for 4 hours after the end of his PD to allow for re-distribution of drug. Plan Vancomycin * Loading dose: 2000 mg (24mg/kg) IV X 1 dose * Random level ordered 10/07 @1200. * Goal trough level for bacteremia: 15-20mcg/mL Pharmacy will continue to follow and will adjust dose/frequency as necessary. Thank you
--- NOTE | 2017-10-06 15:43 | PROGRESS NOTE ---
DATE: 10/06/2017 CARDIOLOGY CONSULTATION FOLLOWUP NOTE The patient seen and examined. Chart, medications, telemetry reviewed. SUBJECTIVE: The patient denies any chest pain or discomfort. Notes good tolerance with ambulation in the hallway yesterday. Notes no fevers, chills. Breathing is easier and less productive cough. Does have moderate peripheral edema. Sugars have been under control since hospitalization. OBJECTIVE: VITAL SIGNS: Heart rate is 70, blood pressure is 122/77, O2 saturations 98% on room air. HEENT: Normocephalic, atraumatic. Nares without discharge. Throat was clear. NECK: There is no jugular venous distention. LUNGS: Reveal few scattered wheezes at the right base but predominantly clear to auscultation. CARDIOVASCULAR: Regular with a grade 1/6 systolic murmur. There is no diastolic murmur. ABDOMEN: Soft. EXTREMITIES: Without cyanosis or clubbing. There are 2+ lower extremity edema. LABORATORY DATA: Troponin I is 3.73. Telemetry reveals no arrhythmias. Sodium is 134, potassium is 3.3, chloride is 100, bicarbonate is 24, BUN is 37, creatinine is 2.3. Hemoglobin is 13.5, white cell count is 6.4. IMPRESSION: A very complex 57-year-old male with underlying history of severe ischemic cardiomyopathy with diffuse diabetic coronary artery disease without surgical or catheter based interventional targets, but prior evaluations he has stable class 2-3 angina pectoris, compensated congestive heart failure, chronic obstructive lung disease, and end-stage renal disease, presented with acute chest discomfort, acute coronary ischemia not excluded given chronic elevation of troponins, though the patient had prompt resolve of complaints without recurrence in the hospital. PLAN: Discontinue IV heparin, observe overnight with ambulation. The patient is currently being treated for possible infection with single blood culture positive. Pulmonary status is improved in hospital predominantly through antibiotic therapies, would avoid corticosteroids currently. Will follow patient in the hospital, heparin drip discontinued.
[2017-10-06] MEDS: NovoLOG INSULIN PUMP SCH ×2 (17:39→21:00)
[2017-10-06] MEDS: ROSUVASTATIN CALCIUM 20 MG TAB PO SCH (21:40)
[2017-10-06] MEDS: SERTRALINE HCL 50 MG TAB PO SCH (21:41)
[2017-10-06] MEDS: MONTELUKAST SOD 10 MG TAB PO SCH (21:42)
[2017-10-06] MEDS: GABAPENTIN 300 MG CAP PO SCH (21:42)
--- NOTE | 2017-10-06 22:04 | Family Medicine Progress Note ---
Progress Note Date of Service Oct 06, 2017. Subjective Pt evaluation today including: conversation w/ patient, physical exam, chart review, lab review, review of inpatient medication list Pain: Denies pain PO Intake: Tolerating well Voiding: no voiding problems Patient feels well today. He is upset with news of the positive blood culture. No chest pain, no breathing difficulties Constitutional: + see HPI, No fever, No chills, No sweats, No weight loss, No weakness, No fatigue, No problem reported Respiratory: No cough, No sputum, No wheezing, No shortness of breath, No dyspnea on exertion, No dyspnea at rest, No hemoptysis, No problem reported Cardiovascular: No chest pain, No orthopnea, No PND, No edema, No claudication, No palpitations, No problem reported Abdomen: No pain, No nausea, No vomiting, No diarrhea, No constipation, No GI bleeding, No problem reported All Other Systems: Reviewed and Negative Medications Current Inpatient Medications Medications (Trade) Dose Ordered Sig/Shasha Route Start Time Stop Time Status Last Admin Dose Admin Acetaminophen (Tylenol Tab) 650 mg Q4H PRN PO 10/05/17 03:15 11/04/17 03:14 10/05/17 19:55 650 MG Magnesium Hydroxide (Milk Of Magnesia Susp) 30 ml Q12H PRN PO 10/05/17 03:15 11/04/17 03:14 Ondansetron HCl (Zofran Inj) 4 mg Q6H PRN IV 10/05/17 03:15 11/04/17 03:14 Nitroglycerin (Nitrostat Tab) 0.4 mg UD PRN SL 10/05/17 03:15 11/04/17 03:14 Aspirin (Ecotrin Tab) 325 mg QAM PO 10/05/17 09:00 11/04/17 08:59 10/06/17 08:08 325 MG Polyethylene (Miralax Powder Packet) 17 gm DAILY PRN PO 10/05/17 03:15 11/04/17 03:14 Carvedilol (Coreg Tab) 6.25 mg BID PO 10/05/17 09:00 11/04/17 08:59 10/06/17 08:08 6.25 MG Ciprofloxacin (Ciprofloxacin Tab) 250 mg BID PO 10/05/17 09:00 10/15/17 08:59 10/06/17 08:08 250 MG Salmeterol Xinafoate/ Fluticasone (Advair Diskus 250/50 Inh) 1 puff Q12 INH 10/05/17 09:00 11/04/17 08:59 10/06/17 08:07 1 PUFF Gabapentin (Neurontin Cap) 300 mg HS PO 10/05/17 21:00 11/04/17 20:59 10/05/17 19:50 300 MG Montelukast Sodium (Singulair Tab) 10 mg QPM PO 10/05/17 21:00 11/04/17 20:59 10/05/17 19:50 10 MG Pantoprazole Sodium (Protonix Tab) 40 mg QAM PO 10/05/17 09:00 11/04/17 08:59 10/06/17 08:08 40 MG Ropinirole HCl (Requip Tab) 2 mg QPM PO 10/05/17 21:00 11/04/17 20:59 10/05/17 19:51 2 MG Ropinirole HCl (Requip Tab) 1 mg QAM PO 10/05/17 09:00 11/04/17 08:59 10/06/17 08:09 1 MG Rosuvastatin Calcium (Crestor Tab) 20 mg HS PO 10/05/17 21:00 11/04/17 20:59 10/05/17 19:49 20 MG Sertraline HCl (Zoloft Tab) 50 mg QPM PO 10/05/17 21:00 11/04/17 20:59 10/05/17 19:51 50 MG Tamsulosin HCl (Flomax Cap) 0.4 mg QAM PO 10/05/17 09:00 11/04/17 08:59 10/06/17 08:08 0.4 MG Albuterol/ Ipratropium (Duoneb) 3 ml QIDR INH 10/05/17 08:00 11/04/17 07:59 10/06/17 19:02 3 ML Miscellaneous Information (Consult) 1 ea UD PRN N/A 10/06/17 09:03 11/05/17 09:02 Insulin Aspart (novoLOG INSULIN PUMP) 1 ea ACHS N/A 10/06/17 16:15 11/05/17 16:14 10/06/17 17:39 1 EA Insulin Aspart (novoLOG ASPART) SLIDING SCALE PRN PRN SC 10/06/17 13:15 11/05/17 13:14 Objective Vital Signs Date Time Temp Pulse Resp B/P (MAP) Pulse Ox O2 Delivery O2 Flow Rate FiO2 10/06/17 19:27 37.1 89 18 116/76 (89) 99 Room Air 10/06/17 19:04 67 16 97 Room Air 10/06/17 17:20 36.6 81 120/74 (89) 10/06/17 16:00 36.6 81 18 120/74 (89) 98 Room Air 10/06/17 16:00 Room Air 10/06/17 14:21 65 16 98 Room Air 10/06/17 12:00 Room Air 10/06/17 11:43 36.4 70 18 122/77 (92) 100 10/06/17 11:35 72 16 98 Room Air 10/06/17 08:00 36.6 70 18 120/74 (89) 98 Room Air 10/06/17 08:00 Room Air 10/06/17 08:00 36.6 70 18 120/74 (89) 10/06/17 07:22 72 16 98 Room Air 10/06/17 04:00 Room Air 10/06/17 03:15 37.0 69 18 121/73 (89) 98 Room Air 10/06/17 00:00 Room Air 10/05/17 23:15 37.1 73 16 119/74 (89) 99 Room Air Physical Exam General Appearance: WD/WN, no apparent distress Eyes: normal inspection, PERRL, EOMI, sclerae normal ENT: hearing grossly normal, pharynx normal Neck: supple, no adenopathy, no JVD, no carotid bruits, trachea midline Respiratory/Chest: chest non-tender, lungs clear, normal breath sounds, no respiratory distress, no accessory muscle use Cardiovascular: regular rate, rhythm, no JVD, no murmur Abdomen: normal bowel sounds, non tender, soft, + distended Extremities: normal range of motion, non-tender, normal inspection, no calf tenderness, + pedal edema Neurologic/Psychiatric: claims agent right of way II-XII nml as tested, no motor/sensory deficits, alert, normal mood/affect, oriented x 3 Skin: normal color, warm/dry, no rash Laboratory Results Last Resulted 10/06/17 05:12 Last Resulted 10/06/17 05:12 Past 24 Hours Test 10/06/17 05:12 Range/Units Troponin I 3.730 *H 0-0.045 ng/ml Assessment and Plan 57 yo M with ESRD on peritoneal dialysis, HTN, COPD, Asthma, poorly controlled DM with insulin pump, ASCVD s/p CABG x2 2006 presenting with Chest pain, found to have elevated troponin on arrival Chest pain (resolved), Troponin elevation - Chest pain resolved - Troponin Elevation, no acute EKG changes, previously attributed to supply/ demand ischemia - Cardiology consulted, appreciate Recs. Well known to service with consistently elevated trops We will continue to be medical management and treatment of underlying illnesses. The patient also carries a history of chronic gastroesophageal reflux and prednisone may have had a precipitating cause. We will follow patient closely in hospital, heparin drip DCd - Trend Troponin ( .18-->.087-->6.6-->6.7-->3.370--asymptomatic, with no changes on repeat EKG) - Heparin Drip dcd Positive Blood culture - likely contamination considering patient afebrile, lack of significant white count - will redraw blood cultures -Started on empiric vancomycin due to high risk of infection via peritoneal dialysis -If repeat cultures neg x 24 hrs, can discontinue and likely discharge History of ASCVD s/p CABG -restart Statin, Coreg -R/o as contributor to currently Trop elevation, history Chest pain as above ESRD - nephrology consulted, appreciate recs --will start on cycler from [facility], since he has seems to be volume overloaded, will use still flex 2.5 and 4.25 alternatively --avoid further IV fluid --dose medications for GFR less than 10 - uses Peritoneal dialysis at home nightly - Dialysis management per Nephrology Hypokalemia: - Dropped to 3.3 this AM -Replaced with 40 PO today; will monitor Diabetes/ Neuropathy - may use own Insulin pump - Hyperglycemia likely secondary to recent prednisone in addition to poor compliance. Has stabilized since admission - restart Gabapentin Asthma - wheezing on exam greatly improved - restart Advair Montelukast - duonebs prn GERD -Protonix Prostatitis - Continue Ciprofloxacin (1month course) Depression/Anxiety Zoloft DVT Prophylaxis ambulation Code: Full Dispo: tele Resident Tracking Resident Involvement: Resident Care Provided Care Provided: Adult Hospital Medicine
[2017-10-07] VITALS (8 sets, daily range): BP systolic 116–126; BP diastolic 67–83; PULSE 75–84; TEMP 36.2–37; O2SAT 95–98
[2017-10-07 05:49] LABS: HEMATOCRIT 40.7 % (42-52); HEMOGLOBIN 13.9 g/dL (14.0-18.0); MEAN CELL VOLUME 85.9 fL (80-100); MEAN CORPUSCULAR HEMOGLOBIN 29.3 pg (25-34); MEAN CORPUSCULAR HGB CONC 34.2 g/dl (32-36); MEAN PLATELET VOLUME 12.8 fL (7.4-10.4); PLATELET COUNT 176 K/uL (130-400); RED CELL DISTRIBUTION WIDTH CV 15.6 % (11.5-14.5); RED CELL DISTRIBUTION WIDTH SD 48.4 fL (36.4-46.3); WHITE BLOOD COUNT 9.74 K/uL (4.8-10.8)
[2017-10-07 06:46] LABS: CALCIUM 8.8 mg/dl (8.5-10.1); CREATININE 2.23 mg/dl (0.60-1.40)
[2017-10-07] MEDS: ALBUT/IPRATROP 3MG/0.5MG NEB 3 ML VIAL INH SCH ×3 (06:59→15:00)
[2017-10-07] MEDS: NovoLOG INSULIN PUMP SCH ×2 (08:26→12:24)
[2017-10-07] MEDS: CIPROFLOXACIN 250 MG TAB PO SCH (08:27)
[2017-10-07] MEDS: FLUTICASONE/SALMETEROL 250/50 (ADVAIR) 14 PUFF/1 INHALER INH SCH (08:27)
[2017-10-07] MEDS: ASPIRIN 325 MG ECTAB PO SCH (08:28)
[2017-10-07] MEDS: CARVEDILOL 6.25 MG TAB PO SCH (08:28)
[2017-10-07] MEDS: TAMSULOSIN HCL 0.4 MG CAP PO SCH (08:28)
[2017-10-07] MEDS: PANTOprazole SOD 40 MG TAB PO SCH (08:28)
[2017-10-07] MEDS: ROPINIROLE HCL 1 MG TAB PO SCH (08:29)
--- NOTE | 2017-10-07 10:18 | Nephrology Progress Note ---
Nephrology Progress Note Date of Service Oct 07, 2017. Chief Complaint ESRD Subjective No acute events overnight. Patient was on cycler and tolerated treatment well. Net UF 2.6 L. Candelario is resting comfortably in a chair this morning. He hopes to be discharged home soon. He denies any abdominal pain or discomfort. He denies chest pain or shortness of breath at rest. No fevers or chills. Effluent remains clear. Review of Systems A complete review of systems was performed. Pertinent positives are noted above. All other systems are negative. Vital Signs Last 8 Hrs Date Time Temp Pulse Resp B/P (MAP) Pulse Ox O2 Delivery O2 Flow Rate FiO2 10/07/17 08:10 36.6 81 18 120/73 (89) 10/07/17 08:08 36.6 81 16 120/73 (89) 98 Room Air 10/07/17 08:00 Room Air 10/07/17 06:59 84 16 97 Room Air 10/07/17 04:16 37.0 81 18 126/83 (97) 97 Room Air 10/07/17 04:00 Room Air I & O 24-Hour Column 10/08/17 08:00 Intake Total 8000 ml Output Total 75817 ml Balance -5464 ml Last Recorded Weight Weight (Kilograms): 82.100 Physical Exam General Appearance: WD/WN, no apparent distress Head: normocephalic, atraumatic Eyes: normal inspection, sclerae normal ENT: normal ENT inspection, pharynx normal Neck: supple, no JVD Respiratory/Chest: lungs clear, no respiratory distress, no accessory muscle use Cardiovascular: regular rate, rhythm, no gallop, no murmur Abdomen/GI: non tender, soft, + pertinent finding (PD catheter intact with clean exit site) Extremities/Musculoskelatal: normal inspection, + pedal edema Neurologic/Psych: alert, normal mood/affect Family History Cancer Diabetes mellitus Heart disease Hypertension Social History Smoking Status: Former smoker Drug Use: none Marital Status: Housing Status: lives with family Occupation: disabled Laboratory Results Past 24 Hours 10/07/17 05:27 10/07/17 05:27 Test 10/06/17 11:28 10/06/17 16:38 10/06/17 18:04 10/06/17 18:30 Bedside Glucose 116 mg/dl (70-99) 90 mg/dl (70-99) 82 mg/dl (70-99) 121 mg/dl (70-99) Test 10/06/17 20:10 10/07/17 05:27 10/07/17 06:44 Bedside Glucose 115 mg/dl (70-99) 268 mg/dl (70-99) Red Blood Count 4.74 M/uL (4.7-6.1) Mean Corpuscular Volume 85.9 fL (80-100) Mean Corpuscular Hemoglobin 29.3 pg (25-34) Mean Corpuscular Hemoglobin Concent 34.2 g/dl (32-36) RDW Standard Deviation 48.4 fL (36.4-46.3) RDW Coefficient of Variation 15.6 % (11.5-14.5) Mean Platelet Volume 12.8 fL (7.4-10.4) Anion Gap 9.0 mmol/L (3-11) Est Creatinine Clear Calc Drug Dose 35.8 ml/min Estimated GFR () 36.8 Estimated GFR (Non- 31.8 BUN/Creatinine Ratio 13.7 (10-20) Calcium Level 8.8 mg/dl (8.5-10.1) Beta-Hydroxybutyric Acid 1.49 mg/dL (0.2-2.81) Allergies Coded Allergies: Penicillins (Verified Allergy, Severe, HIVES, 10/05/17) BEE STING (Verified Allergy, Intermediate, SWELLING, 10/05/17) DOES NOT REQUIRE EPIPEN PER FAMILY Medications Current Inpatient Medications Medications (Trade) Dose Ordered Sig/Shasha Route Start Time Stop Time Status Last Admin Dose Admin Acetaminophen (Tylenol Tab) 650 mg Q4H PRN PO 10/05/17 03:15 11/04/17 03:14 10/05/17 19:55 650 MG Magnesium Hydroxide (Milk Of Magnesia Susp) 30 ml Q12H PRN PO 10/05/17 03:15 11/04/17 03:14 Ondansetron HCl (Zofran Inj) 4 mg Q6H PRN IV 10/05/17 03:15 11/04/17 03:14 Nitroglycerin (Nitrostat Tab) 0.4 mg UD PRN SL 10/05/17 03:15 11/04/17 03:14 Aspirin (Ecotrin Tab) 325 mg QAM PO 10/05/17 09:00 11/04/17 08:59 10/07/17 08:28 325 MG Polyethylene (Miralax Powder Packet) 17 gm DAILY PRN PO 10/05/17 03:15 11/04/17 03:14 Carvedilol (Coreg Tab) 6.25 mg BID PO 10/05/17 09:00 11/04/17 08:59 10/07/17 08:28 6.25 MG Ciprofloxacin (Ciprofloxacin Tab) 250 mg BID PO 10/05/17 09:00 10/15/17 08:59 10/07/17 08:27 250 MG Salmeterol Xinafoate/ Fluticasone (Advair Diskus 250/50 Inh) 1 puff Q12 INH 10/05/17 09:00 11/04/17 08:59 10/07/17 08:27 1 PUFF Gabapentin (Neurontin Cap) 300 mg HS PO 10/05/17 21:00 11/04/17 20:59 10/06/17 21:42 300 MG Montelukast Sodium (Singulair Tab) 10 mg QPM PO 10/05/17 21:00 11/04/17 20:59 10/06/17 21:42 10 MG Pantoprazole Sodium (Protonix Tab) 40 mg QAM PO 10/05/17 09:00 11/04/17 08:59 10/07/17 08:28 40 MG Ropinirole HCl (Requip Tab) 2 mg QPM PO 10/05/17 21:00 11/04/17 20:59 10/06/17 21:41 2 MG Ropinirole HCl (Requip Tab) 1 mg QAM PO 10/05/17 09:00 11/04/17 08:59 10/07/17 08:29 1 MG Rosuvastatin Calcium (Crestor Tab) 20 mg HS PO 10/05/17 21:00 11/04/17 20:59 10/06/17 21:40 20 MG Sertraline HCl (Zoloft Tab) 50 mg QPM PO 10/05/17 21:00 11/04/17 20:59 10/06/17 21:41 50 MG Tamsulosin HCl (Flomax Cap) 0.4 mg QAM PO 10/05/17 09:00 11/04/17 08:59 10/07/17 08:28 0.4 MG Albuterol/ Ipratropium (Duoneb) 3 ml QIDR INH 10/05/17 08:00 11/04/17 07:59 10/07/17 06:59 3 ML Miscellaneous Information (Consult) 1 ea UD PRN N/A 10/06/17 09:03 11/05/17 09:02 Insulin Aspart (novoLOG INSULIN PUMP) 1 ea ACHS N/A 10/06/17 16:15 11/05/17 16:14 10/07/17 08:26 1 EA Insulin Aspart (novoLOG ASPART) SLIDING SCALE PRN PRN SC 10/06/17 13:15 11/05/17 13:14 Impression (1) End stage renal failure on dialysis (2) Abnormal EKG (3) Ischemic cardiomyopathy (4) Non-STEMI (non-ST elevated myocardial infarction) Candelario is a 57-year-old male with end-stage renal disease due to diabetic nephropathy. 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 He was admitted with chest pain and an elevated troponin. EKG abnormal but unchanged. Chest pain has resolved. Candelario is known to have diffuse CAD associated with DM. He has small vessel disease following CABG in the past. He has had stable angina and prior evaluations did not show any targets for PCI. Cardiology consult was reviewed this morning. Candelario denies any additional chest pain at this time. Candelario was recently admitted in July and underwent AICD placement at that time. Recommendations ESRD: -- CCPD orders have been entered into the EMR -- Volume status is improving -- UF with Deflex 4.25/2.5% dextrose exchange -- Continue current therapy prescription to encourage net negative fluid balance -- Goal EDW 167 lbs -- Electrolytes are acceptable -- Effluent clear -- Catheter care per protocol -- Patient can resume 2.5% exchanges at home on discharge -- Medications are appropriately dosed for PD 1/2 blood cultures negative for coag negative staph on admission. -- Repeat cultures pending -- No evidence of peritonitis -- No signs of uncontrolled infection
--- NOTE | 2017-10-07 13:09 | CARDIOLOGY PROGRESS NOTE ---
DATE: 10/07/2017 CARDIOLOGY CONSULTATION FOLLOWUP NOTE The patient seen and examined. Chart, medications, telemetry reviewed. SUBJECTIVE: The patient notes no chest pain or discomfort, but has been ambulatory in the hallway. Notes no dizziness or lightheadedness. Overall, feels he has returned to baseline pulmonary status has improved substantially. Notes no productive cough, wheezing is diminished. OBJECTIVE: VITAL SIGNS: Heart rate 75, blood pressure is 116/67. Telemetry reveals no bradyarrhythmias of significance. HEENT: Normocephalic, atraumatic. Nares without discharge. Throat was clear. NECK: There is no jugular venous distention at 30 degrees. LUNGS: Reveal few scattered wheezes but are predominantly clear. CARDIOVASCULAR: Regular. There is no S3 gallop. ABDOMEN: Soft, nontender. EXTREMITIES: Reveal 2+ lower extremity edema. IMPRESSION AND PLAN: A 57-year-old male with underlying history of known ischemic heart disease with class 2-3 angina pectoris, admitted with chest pain and chronic troponin elevation. No signs or symptoms to suggest acute ischemic event though underlying coronary disease was noted. The patient appears stable at this time and likely may be discharged, now that pulmonary status is improved, though he will discuss with primary admitting service and nephrology. He anticipates more concentrated dialysis this evening to aide lower extremity edema. He will follow up as routinely scheduled as an outpatient, report any new symptoms or chest pain with appropriate presentation on this admission.
--- NOTE | 2017-10-07 14:00 | Discharge Instructions ---
Discharge Instructions Date of Service Oct 07, 2017. Admission Reason for Admission: Chest Pain, Elevated Troponin Discharge Discharge Diagnosis / Problem: Possible non-STEMI Discharge Goals Goal(s): Decrease discomfort, Improve function, Increase independence, Improve disease control, Improve nutritional status, Learn about illness, Diagnostic testing, Therapeutic intervention, Prevent Disease Progression, Specific goals Activity Recommendations Activity Limitations: resume your previous activity Exercise/Sports Limitations: as tolerated May Resume Sexual Activity: when tolerated . Instructions / Follow-Up Instructions / Follow-Up you possible non-STEMI with elevated troponin, drafter engineering saw you, no procedure, continue continue aspirin and statin and Coreg you have hx of ESRD on peritoneal dialysis, please continue do as instructed you have positive Blood culture 1 out of 2 tube, likely contamination , repeated blood culture was ordered on 10/06/2017, you need to follow up with your pcp about the final results you have been on ciprofloxacin x 1 month for prostatitis since his last admission on 09/18, Cipro need to be stop on 2017, or follow up the instruction from your pcp - you need to follow up with your primary care physician in 1 week, - take medication as instructed, never overdose or any misuse, or take with alcohol, because misuse of medicine may cause organ damage or , call your primary care physician if have questions of medicaitons. - call your primary care physician OR go to local emergency room if has any fever/chill, chest pain, shortness of breathing, nausea/vomiting/abdominal pain , facial droop/slurry speech/local weakness, or if has any questions. - fall precaution - diet as instructed - you need to follow up with your subspecialists as instructed, need to be seen by drafter engineering in 2-3 weeks - you should understand that it is important to follow up the above instruction , and "not following the above instruction" may cause delayed or missed care of your medical conditions which may cause permanent organ damage and even . Current Hospital Diet Patient's current hospital diet: Diabetes Type 2 Diet Discharge Diet Recommended Diet: Low Sodium Diet (2gm Na), Diabetes Type 2 Diet Procedures Procedures Performed: no Pending Studies Studies pending at discharge: yes List of pending studies: blood culture results on 10/06/2017, need to follow up with pcp for final results Medical Emergencies . Who to Call and When: Medical Emergencies: If at any time you feel your situation is an emergency, please call 911 immediately. . Non-Emergent Contact Non-Emergency issues call your: Primary Care Provider, Babcock Tester, Piped Buttonhole Machine Operator Call Non-Emergent contact if: you have a fever . . "Provider Documentation" section prepared by Vick Ferrera. . VTE Core Measure Inpt VTE Proph given/why not?: Other Anticoagulation (Heparin drip)
--- NOTE | 2017-10-07 21:18 | Discharge Summary ---
Discharge Summary Date of Service Oct 07, 2017. Discharge Summary Admission Date: Oct 05, 2017 at 03:45 Discharge Date: Oct 07, 2017 Discharge Disposition: Home Principal Diagnosis: Chest pain, elevated troponin Problems/Secondary Diagnoses: ASCVD s/p CABG x2 2006 ESRD on peritoneal dialysis HTN COPD DM T2 - poorly controlled, on insulin pump Immunizations: Have You Had Influenza Vaccine: Yes Influenza Vaccine Date: May 10, 2012 History of Tetanus Vaccine?: Yes Tetanus Immunization Date: May 08, 2006 History of Pneumococcal: Yes Pneumococcal Date: May 10, 2006 History of Hepatitis B Vaccine: Yes Procedures: CHEST ONE VIEW PORTABLE HISTORY: 57 years-old Male chest pain acute atypical chest pain COMPARISON: Chest radiograph 09/19/2017 TECHNIQUE: Portable AP view of the chest FINDINGS: Cardiac silhouette is again enlarged. Prior median sternotomy. Surgical clips project over the left mediastinum possibly from prior CABG. The superiormost sternotomy wire is again fractured. Right subclavian pacer/AICD appears unchanged. There is no pneumothorax, pleural effusion, focal airspace consolidation or overt pulmonary edema. The bones of the chest appear grossly intact. Degenerative changes are noted within the shoulders and spine. IMPRESSION: Cardiomegaly without acute process. The above report was generated using voice recognition software. It may contain grammatical, syntax or spelling errors. Electronically signed by: Samir Landin M.D. 10/05/2017 6:38 AM Dictated Date/Time: 10/05/2017 6:37 AM Consultations: Nephrology Cardiology Medication Reconciliation Continued Medications: Acyclovir (Acyclovir) 400 Mg Tab 400 MG PO BID for HERPES FLARE Albuterol Sulfate (Proair Respiclick) 108 Mcg/Act Aer 2 PUFFS INH QAM PRN for SOB/Wheezing Aspirin (Aspirin Ec) 81 Mg Tab 81 MG PO QPM Carvedilol (Coreg) 6.25 Mg Tab 6.25 MG PO BID, TAB Ciprofloxacin Tab (Cipro) 250 Mg Tab 250 MG PO BID for 5 Days Fluticasone Prop/Salmeterol (Advair Diskus 250/50 60 Dose) 1 Ea Aerp 1 PUFF INH Q12 Furosemide (Lasix) 40 Mg Tab 40 MG PO BID, TAB Gabapentin (Neurontin) 300 Mg Cap 300 MG PO HS, CAP Glucagon (Glucagon Emergency Kit) 1 Mg Kit 1 DOSE INJ UD PRN for HYPOGLYCEMIA Insulin Aspart (novoLOG INSULIN PUMP ) 1 Ea Inj 1 EA N/A UD, EA Lactulose (Chronulac) 10 Gm/15 Ml Syrp 1 DOSE PO DIRECTED PRN for Constipation Levalbuterol (Levalbuterol HCl) 1.25 Mg/3 Ml Nebu 1 VIAL NEB TID PRN for COPD Lorazepam (Ativan) 1 Mg Tab 0.5-1 MG PO BID PRN for Anxiety Montelukast Sod (Montelukast Sodium) 10 Mg Tab 10 MG PO QPM Multiple Vitamins W/ Minerals (Prorenal Qd) 1 Cap Cap 1 CAP PO QAM Nitroglycerin (Nitrostat) 0.4 Mg Tab 0.4 MG UT UD PRN for Chest Pain PLACE ONE TABLET UNDER THE TONGUE EVERY 5 MINUTES FOR UP TO 3 DOSES IF NEEDED FOR CHEST PAIN. Ondansetron Hcl (Zofran) 4 Mg Tab 4 MG PO Q6H PRN for Nausea, TAB Oxycodone/Acetaminophen 5MG/325MG (Percocet 5MG/325MG) Tab 1 TABLET PO HS Pantoprazole (Pantoprazole Sodium) 40 Mg Tab 40 MG PO QAM Polyethylene Glycol 3350 (Miralax) 1 Pow Pow 17 GM PO DAILY PRN for Constipation, #527 GM Ropinirole (Requip) 1 Mg Tab 2 MG PO QPM, TAB Ropinirole Hydrochloride (Requip) 1 Mg Tab 1 MG PO QAM, TAB Rosuvastatin Calcium (Crestor) 20 Mg Tab 20 MG PO HS, TAB Sertraline HCl (Sertraline HCl) 50 Mg Tab 50 MG PO QPM Tamsulosin HCl (Tamsulosin HCl) 0.4 Mg Cap 0.4 MG PO QAM for 30 Days, #30 CAP Trazodone Hcl (Trazodone) 50 Mg Tab 50 MG PO HS PRN for Sleep, TAB Discontinued Medications: Prednisone (Prednisone) 10 Mg Tab MG PO UD 40 mg daily for 5 days then 20 mg daily for 5 days Discharge Exam Pt assessed today before discharge appeared in good spirits, tolerating food and drink with no issues, niece at bedside. Denies chest pain, SOB or any new swelling in his lower extremities. Has tolerated dialysis well. Pt reports no acute overnight events. Pt motivated to return home. Denies headaches, constipation, diarrhea, pain in lower extremities. Review of Systems See HPI for pertinent positives and negatives. Physical Exam AFVSS GENERAL: Awake, alert, well-appearing, in no distress HENT: Normocephalic, atraumatic. EYES: Normal conjunctiva. Sclera non-icteric. NECK: Supple. No nuchal rigidity. FROM. RESPIRATORY: Rhonchi heard bilaterally. CARDIAC: Regular rate, normal rhythm. Extremities warm and well perfused. Pulses equal. ABDOMEN: Soft, non-distended. No tenderness to palpation. No rebound or guarding. No masses. Peritoneal port in tact. MUSCULOSKELETAL: Chest examination reveals no tenderness. The back is symmetrical on inspection without obvious abnormality. There is no CVA tenderness to palpation. LOWER EXTREMITIES: Calves are equal size bilaterally and non-tender. 1-2+ edema b/l. No discoloration. NEURO: No motor deficits noted. SKIN: No rash noted. Hospital Course 57 yo M with ESRD on peritoneal dialysis, HTN, COPD, poorly controlled DM with insulin pump, ASCVD s/p CABG x2 2006 presenting with Chest pain, found to have elevated troponin on arrival Chest pain (resolved), Troponin elevation - Chest pain resolved - Troponin Elevation, no acute EKG changes, previously attributed to supply/ demand ischemia - Cardiology consulted, appreciate Recs. Well known to service with consistently elevated trops The patient also carries a history of chronic gastroesophageal reflux and prednisone may have had a precipitating cause. Prednisone DC'ed on discharge as above. - Troponin downward trend ( .18-->.087-->6.6-->6.7-->3.370--asymptomatic, with no changes on repeat EKG) - Heparin Drip dcd Positive Blood culture x1 - likely contamination considering patient afebrile, lack of significant white count - Repeat blood cultures pending - Given empiric vancomycin due to high risk of infection via peritoneal dialysis , however appeared well on day of discharge, no signs of infection clinically History of ASCVD s/p CABG - continue Statin, Coreg ESRD - nephrology consulted, appreciate recs --cycler performed, used still flex 2.5 and 4.25 alternatively --avoided further IV fluid --dosed medications for GFR less than 10 - Continue Peritoneal dialysis at home nightly Hypokalemia: - Replaced Diabetes/ Neuropathy - continue home Insulin pump - Hyperglycemia likely secondary to recent prednisone, stabilized. - continue Gabapentin Asthma - wheezing on exam greatly improved - continue Advair Montelukast - duonebs given prn GERD - continue Protonix Prostatitis - Continue Ciprofloxacin (1month course) Depression/Anxiety Ramezoft Thank you for allowing us to participate in Mr. Caro's care. Total Time Spent: Greater than 30 minutes This includes examination of the patient, discharge planning, medication reconciliation, and communication with other providers. Discharge Instructions Please refer to the electronic Patient Visit Report (Discharge Instructions) for additional information. Additional Copies To Arielle Whittaker MD; Arielle Whittaker M.D. Resident Tracking Resident Involvement: Resident Care Provided Care Provided: Adult [facility] Medicine
== END 2017-10-07 16:06 | disposition home or self-care (01) | DRG 280 ==
LOC: C.EDB 23:38 → C.2T 10-05 03:45 → ENRESERV 10-05 03:57 → EDBEDREQ 10-05 04:36
PROVIDERS: ADMIT Internal Medicine; ATTEND Hospitalist
PROC: 3E1M39Z Irrigation of Peritoneal Cavity using Dialysate, Percutaneous Approach (ICD-10-PCS; principal; 2017-10-05)
DX: I21.4 Non-ST elevation (NSTEMI) myocardial infarction (principal); N18.6 End stage renal disease; I12.0 Hypertensive chronic kidney disease with stage 5 chronic kidney disease or end stage renal disease; I24.8 Other forms of acute ischemic heart disease; K21.9 Gastro-esophageal reflux disease without esophagitis; E87.6 Hypokalemia; N41.9 Inflammatory disease of prostate, unspecified; R78.89 Finding of other specified substances, not normally found in blood; E87.70 Fluid overload, unspecified; I25.119 Atherosclerotic heart disease of native coronary artery with unspecified angina pectoris; I25.5 Ischemic cardiomyopathy; E11.69 Type 2 diabetes mellitus with other specified complication; E11.40 Type 2 diabetes mellitus with diabetic neuropathy, unspecified; E11.22 Type 2 diabetes mellitus with diabetic chronic kidney disease; E11.65 Type 2 diabetes mellitus with hyperglycemia; T38.0X5A Adverse effect of glucocorticoids and synthetic analogues, initial encounter; E11.21 Type 2 diabetes mellitus with diabetic nephropathy; J44.9 Chronic obstructive pulmonary disease, unspecified; G47.33 Obstructive sleep apnea (adult) (pediatric); F41.9 Anxiety disorder, unspecified; F32.9 Major depressive disorder, single episode, unspecified; T38.3X6A Underdosing of insulin and oral hypoglycemic [antidiabetic] drugs, initial encounter; Z91.138 Patient's unintentional underdosing of medication regimen for other reason; Z99.2 Dependence on renal dialysis; Z95.810 Presence of automatic (implantable) cardiac defibrillator; Z96.41 Presence of insulin pump (external) (internal); Z95.1 Presence of aortocoronary bypass graft; Z87.891 Personal history of nicotine dependence; Z79.52 Long term (current) use of systemic steroids; Z79.82 Long term (current) use of aspirin; Z79.51 Long term (current) use of inhaled steroids; Z79.2 Long term (current) use of antibiotics; Z79.4 Long term (current) use of insulin; Z79.891 Long term (current) use of opiate analgesic; Z79.899 Other long term (current) drug therapy; Z88.0 Allergy status to penicillin; Z91.030 Bee allergy status

== ENCOUNTER 2017-11-30 23:56 | Emergency (ER) | payer OTHER ==
[~2017-11-30] VITALS: Ht 162.6 cm; Wt 86.1 kg
[~2017-11-30 23:56] MED LIST changes: -CIPR250T3 PO; -INSPMPHMLG; +INSPMPNVLG; -PRD20 PO; -PRED10TA PO
[2017-12-01] VITALS: TEMP 36.4; Ht 162.6 cm; Wt 86.1 kg
[2017-12-01 00:14] VITALS: O2SAT 98
--- NOTE | 2017-12-01 00:22 | EMERGENCY ROOM VISIT NOTE ---
History Report prepared by Dana: Lee Ann Coronel Under the Supervision of: Dr. Naomie Howard D.O. First contact with patient: 00:05 Chief Complaint: HYPOTENSION Stated Complaint: dizzy,FAINT,LOW BLOOD PRESSURE History of Present Illness The patient is a 57 year old male who presents to the Emergency Room with complaints of intermittent general low blood pressure since this evening. He states that he recently had a syncope episode on November 26, 2017 while he was trying to catch his puppy. He states that he was on his driveway when he felt winded and lightheaded prior to passing out. He notes that he had his pup in one hand and he was on one knee at the time and the next thing he knew he woke up and was unclear of what happened. Per , the patient has been getting more lightheaded and pale lately. She notes that he was lightheaded yesterday as well. He states that he has been more disoriented and dizzy today. He reports his blood pressure was initially recorded at 103/58 and then ten minutes later it was 93/53. Per , the patient was placed on Finasteride, a prostate medication, two weeks ago. He has a history of high blood pressure. He states that he has been eating and drinking well. He has a history of a hernia that was treated at [facility] last year. He has a history of blood transfusion. Per , the patients blood glucose was elevated, though he took his insulin this evening. He has a history of peritoneal dialysis, which he does every night. There are no recent changes to his dialysis treatments. Source of History: patient, spouse/significant other Onset: since this evening Position: other (general ) Quality: other (low blood pressure) Timing: intermittent Note: He notes syncope, lightheadedness, dizziness, and disorientation. Review of Systems See HPI for pertinent positives & negatives. A total of 10 systems reviewed and were otherwise negative. Past Medical & Surgical Medical Problems: (1) A-fib (2) Abdominal pain (3) Abnormal EKG (4) ACS (acute coronary syndrome) (5) Acute bronchitis (6) Acute renal failure syndrome (7) AF (atrial fibrillation) (8) Asthma (9) Asthma exacerbation (10) Benign hypertension (11) Bilateral leg pain (12) CAD (coronary artery disease) of artery bypass graft (13) Chest pain (14) Chest pain (15) Cholecystectomy (16) Chronic obstructive lung disease (17) COPD exacerbation (18) Coronary artery bypass grafting (19) Coronary artery disease (20) Diabetes mellitus (21) double bypass surgery (22) Elevated troponin (23) End stage renal failure on dialysis (24) ESRD on hemodialysis (25) ESRD on peritoneal dialysis (26) Failure of outpatient treatment (27) Flank pain, acute (28) GI bleed (29) Heart disease (30) Hepatitis (31) Hyponatremia (32) Hyponatremia (33) Hypotension (34) Incarcerated ventral hernia (35) Intermitent atrial fibrillation (36) Ischemic cardiomyopathy (37) Myocardial infarction (38) NSTEMI (non-ST elevated myocardial infarction) (39) Obstructive sleep apnea syndrome (40) Peritoneal dialysis status (41) Peritonitis associated with peritoneal dialysis (42) Pneumonia (43) Pneumonia (44) Presence of combination internal cardiac defibrillator (ICD) and pacemaker (45) Secondary hyperparathyroidism of renal origin (46) SOB (shortness of breath) (47) Toe fracture (48) Vomiting Surgical Problems: (1) History of bowel resection (2) History of hernia repair (3) Hx of cholecystectomy Family History Cancer Diabetes mellitus Heart disease Hypertension Social History Smoking Status: Former Smoker Smokeless Tobacco Use: Yes (snuff) Alcohol Use: none Drug Use: none Marital Status: Housing Status: lives with family Occupation Status: disabled Current/Historical Medications Scheduled Acyclovir (Acyclovir), 400 MG PO BID Aspirin (Aspirin Ec), 81 MG PO QPM Carvedilol (Coreg), 6.25 MG PO BID Finasteride (Proscar), 5 MG PO Q2D Fluticasone Prop/Salmeterol (Advair Diskus 250/50 60 Dose), 1 PUFF INH Q12 Furosemide (Lasix), 40 MG PO BID Gabapentin (Neurontin), 300 MG PO HS Gentamicin Sulfate (Ophth) (Gentak), 1 DROP OP DAILY Insulin Aspart (novoLOG INSULIN PUMP ), 1 EA N/A UD Montelukast Sod (Montelukast Sodium), 10 MG PO QPM Multiple Vitamins W/ Minerals (Prorenal Qd), 1 CAP PO QAM Oxycodone/Acetaminophen 5MG/325MG (Percocet 5MG/325MG), 1 TABLET PO HS Pantoprazole (Pantoprazole Sodium), 40 MG PO QAM Ropinirole (Requip), 2 MG PO QPM Ropinirole Hydrochloride (Requip), 1 MG PO QAM Rosuvastatin Calcium (Crestor), 20 MG PO HS Sertraline HCl (Sertraline HCl), 50 MG PO QPM Scheduled PRN Albuterol Sulfate (Proair Respiclick), 2 PUFFS INH QAM PRN for SOB/Wheezing Clotrimazole W/ Betamethasone (Clotrimazole/Betamethason), 1 APPLN TD AMPM PRN for AFFECTED AREA Glucagon (Glucagon Emergency Kit), 1 DOSE INJ UD PRN for HYPOGLYCEMIA Guaifenesin (Cough Syrup), 5-10 ML PO Q4H PRN for Cough Lactulose (Chronulac), 1 DOSE PO DIRECTED PRN for Constipation Levalbuterol (Levalbuterol HCl), 1 VIAL NEB TID PRN for COPD Lorazepam (Ativan), 0.5-1 MG PO BID PRN for Anxiety Nitroglycerin (Nitrostat), 0.4 MG UT UD PRN for Chest Pain Ondansetron Hcl (Zofran), 4 MG PO Q6H PRN for Nausea Polyethylene Glycol 3350 (Miralax), 17 GM PO DAILY PRN for Constipation Trazodone Hcl (Trazodone), 50 MG PO HS PRN for Sleep Allergies Coded Allergies: Penicillins (Verified Allergy, Severe, HIVES, 12/01/17) BEE STING (Verified Allergy, Intermediate, SWELLING, 12/01/17) DOES NOT REQUIRE EPIPEN PER FAMILY Physical Exam Vital Signs Date Time Temp Pulse Resp B/P (MAP) Pulse Ox O2 Delivery O2 Flow Rate FiO2 12/01/17 02:28 63 12/01/17 02:26 63 16 114/71 98 Room Air 12/01/17 01:21 60 16 111/70 98 Room Air 12/01/17 00:20 79 109/70 63 113/71 62 107/61 12/01/17 00:17 63 12/01/17 00:14 98 Room Air 12/01/17 00:00 36.4 70 16 114/67 98 Room Air Physical Exam HEENT: Head - normocephalic and atraumatic Pupils are equal, round, and reactive to light. Extraocular eye muscles are intact, and sclera are anicteric. Nose - moist nasal mucosa without discharge. Mouth - moist buccal mucosa. Oropharynx is nonerythematous and there is no tonsillar exudate or edema noted. Neck: Supple; no JVD, nuchal rigidity, cervical lymphadenopathy. Heart: Regular rate and rhythm. There is a normal S1 and S2 with no murmurs, clicks, or gallops appreciated. Lungs: Clear to auscultation bilaterally with no wheezes, rales, or rhonchi. Abdomen: Soft, completely nontender, abdomen is distended due to dialysate, with good bowel sounds. There are no palpable pulsatile masses or hepatosplenomegaly. There is no guarding, rigidity, or rebound noted. Extremities: No evidence of cyanosis, clubbing, or edema. There are easily palpable peripheral pulses. Skin: warm and dry with good turgor and no rashes. Slightly pale. Medical Decision & Procedures Laboratory Results 12/01/17 00:30 Red Blood Count 4.57, Mean Corpuscular Volume 84.9, Mean Corpuscular Hemoglobin 29.3, Mean Corpuscular Hemoglobin Concent 34.5, Mean Platelet Volume 12.4, Neutrophils (%) (Auto) 75.0, Lymphocytes (%) (Auto) 10.0, Monocytes (%) (Auto) 10.5, Eosinophils (%) (Auto) 3.3, Basophils (%) (Auto) 0.6, Neutrophils # (Auto ) 6.36, Lymphocytes # (Auto) 0.85, Monocytes # (Auto) 0.89, Eosinophils # (Auto ) 0.28, Basophils # (Auto) 0.05 12/01/17 00:30 Test 12/01/17 00:30 White Blood Count 8.48 K/uL (4.8-10.8) Red Blood Count 4.57 M/uL (4.7-6.1) Hemoglobin 13.4 g/dL (14.0-18.0) Hematocrit 38.8 % (42-52) Mean Corpuscular Volume 84.9 fL (80-100) Mean Corpuscular Hemoglobin 29.3 pg (25-34) Mean Corpuscular Hemoglobin Concent 34.5 g/dl (32-36) Platelet Count 165 K/uL (130-400) Mean Platelet Volume 12.4 fL (7.4-10.4) Neutrophils (%) (Auto) 75.0 % Lymphocytes (%) (Auto) 10.0 % Monocytes (%) (Auto) 10.5 % Eosinophils (%) (Auto) 3.3 % Basophils (%) (Auto) 0.6 % Neutrophils # (Auto) 6.36 K/uL (1.4-6.5) Lymphocytes # (Auto) 0.85 K/uL (1.2-3.4) Monocytes # (Auto) 0.89 K/uL (0.11-0.59) Eosinophils # (Auto) 0.28 K/uL (0-0.5) Basophils # (Auto) 0.05 K/uL (0-0.2) RDW Standard Deviation 47.0 fL (36.4-46.3) RDW Coefficient of Variation 15.2 % (11.5-14.5) Immature Granulocyte % (Auto) 0.6 % Immature Granulocyte # (Auto) 0.05 K/uL (0.00-0.02) Anion Gap 9.0 mmol/L (3-11) Est Creatinine Clear Calc Drug Dose 19.3 ml/min Estimated GFR () 17.0 Estimated GFR (Non- 14.6 BUN/Creatinine Ratio 16.8 (10-20) Calcium Level 8.5 mg/dl (8.5-10.1) Total Bilirubin 0.9 mg/dl (0.2-1) Direct Bilirubin 0.5 mg/dl (0-0.2) Aspartate Amino Transf (AST/SGOT) 78 U/L (15-37) Alanine Aminotransferase (ALT/SGPT) 130 U/L (12-78) Alkaline Phosphatase 770 U/L (45-117) Total Protein 6.9 gm/dl (6.4-8.2) Albumin 3.1 gm/dl (3.4-5.0) Laboratory results per my review. Medications Administered Medications (Trade) Dose Ordered Sig/Shasha Route Start Time Stop Time Status Last Admin Dose Admin Sodium Chloride 500 ml @ 999 mls/hr Q31M STAT IV 12/01/17 01:57 12/01/17 02:27 DC 12/01/17 01:57 999 MLS/HR Procedure 0157: Ordered Sodium Chloride 500 ml @ 999 mls/hr IV. ECG Per My Interpretation Indication: weakness Rate (beats per minute): 64 Rhythm: other (atrial-paced rhythm with prolonged AV conduction) Findings: nonspecific-ST abn, no acute ischemic change, other (MN interval is 246 ms) Comparison ECG Date: when compared to 10/05/2017 the MN interval was 188 ms ED Course 0014: Past medical records reviewed. The patient was evaluated in room A2. A complete history and physical exam was performed. IV lock was established. Labs were drawn as above. A 12-lead EKG was obtained as described above. 0153: I reassessed the patient at this time. He is feeling better. He is drinking Powerade. 0157: Ordered Sodium Chloride 500 ml @ 999 mls/hr IV. 0234: I reassessed the patient at this time. He is feeling better and resting comfortably. I discussed the results and treatment plan with the patient. I answered all pertaining questions that he had. He expressed understanding and verbalized agreement. The patient will be discharged home. The patient will need to follow-up with Dr. Andrew from urology with regards to his prostate medication. I was concerned that this could be contributing to his episodes of hypotension. He was encouraged to move slowly and if he felt lightheaded all, he should sit down to the ground. Medical Decision The patient is a 57 year old male who presents to the ED with low blood pressure. Differential diagnosis includes mediation side effects, electrolyte abnormality, dehydration, and anemia. Lab results showed: Normal WBC. Hemoglobin 13.4. Sodium 130. Chloride 97. BUN 71. Creat 4.2. Gluc 223. LFTs mildly elevated: AST 78, ALT 130, ALP 770. LFTS are decreased from previous admissions this year. On physical exam, the patient looks slightly dehydrated. He has a BUN of 71. His sodium and chloride are very low. I believe this could account for the patient's lightheadedness and near syncope. The patient follows his weight closely and adjust his dialysate for peritoneal dialysis based on his weight. I have encouraged the patient to drink plenty of clear liquids at home and decrease the dialysate concentration over the next 24 hours. He will require close follow-up with his PCP Medication Reconcilliation Current Medication List: was personally reviewed by me Blood Pressure Screening Patient's blood pressure: Normal blood pressure Impression Primary Impression: Dehydration Additional Impression: Hypotension Scribe Attestation The scribe's documentation has been prepared under my direction and personally reviewed by me in its entirety. I confirm that the note above accurately reflects all work, treatment, procedures, and medical decision making performed by me. Departure Information Dispostion Home / Self-Care Referrals Arielle Whittaker MD (PCP) Forms HOME CARE DOCUMENTATION FORM, IMPORTANT VISIT INFORMATION, WORK / SCHOOL INSTRUCTIONS Patient Instructions Dehydration, My [facility] Additional Instructions Rest. If you begin to feel light-headed, sit down to the ground. Follow up with Dr. Andrew and Dr. Robledo as directed. Take plenty of clear liquids Decrease dialysate as we discussed. Problem Qualifiers
[2017-12-01 00:42] LABS: BASO % 0.6 %; BASO ABS # 0.05 K/uL (0-0.2); EOS % 3.3 %; EOS ABS # 0.28 K/uL (0-0.5); HEMATOCRIT 38.8 % (42-52); HEMOGLOBIN 13.4 g/dL (14.0-18.0); IG# 0.05 K/uL (0.00-0.02); LYMPH ABS # 0.85 K/uL (1.2-3.4); MEAN CELL VOLUME 84.9 fL (80-100); MEAN CORPUSCULAR HEMOGLOBIN 29.3 pg (25-34); MEAN CORPUSCULAR HGB CONC 34.5 g/dl (32-36); MEAN PLATELET VOLUME 12.4 fL (7.4-10.4); MONO % 10.5 %; MONO ABS # 0.89 K/uL (0.11-0.59); NEUT ABS # 6.36 K/uL (1.4-6.5); PLATELET COUNT 165 K/uL (130-400); RED CELL DISTRIBUTION WIDTH CV 15.2 % (11.5-14.5); WHITE BLOOD COUNT 8.48 K/uL (4.8-10.8)
[2017-12-01 01:03] LABS: ALBUMIN 3.1 gm/dl (3.4-5.0); CALCIUM 8.5 mg/dl (8.5-10.1); CREATININE 4.23 mg/dl (0.60-1.40); POTASSIUM 3.5 mmol/L (3.5-5.1)
[2017-12-01] MEDS ORDERED: SERT50TA PO (01:05)
[2017-12-01] MEDS ORDERED: CLOTLOT2 TD (01:05)
[2017-12-01] MEDS ORDERED: GENT0.3S6 OP (01:05)
[2017-12-01] MEDS ORDERED: GUAI100S18 PO (01:05)
[2017-12-01] MEDS ORDERED: FINA5TAB PO (01:05)
[2017-12-01 01:06] LABS: TOTAL PROTEIN 6.9 gm/dl (6.4-8.2)
[2017-12-01] MEDS ORDERED: SODIUM CHLORIDE 0.9% 500ML 500 ML IV STA (01:57)
[2017-12-01 02:26] VITALS: BP 114/71; O2SAT 98
[2017-12-01 02:28] VITALS: PULSE 63
== END 2017-12-01 02:50 | disposition home or self-care (01) ==
LOC: C.EDB 23:58 → C.EDA 12-01 02:50
DX: E86.0 Dehydration (principal); I95.9 Hypotension, unspecified; I48.91 Unspecified atrial fibrillation; I24.9 Acute ischemic heart disease, unspecified; N19 Unspecified kidney failure; J45.909 Unspecified asthma, uncomplicated; I10 Essential (primary) hypertension; I25.10 Atherosclerotic heart disease of native coronary artery without angina pectoris; J44.9 Chronic obstructive pulmonary disease, unspecified; Z95.1 Presence of aortocoronary bypass graft; E11.9 Type 2 diabetes mellitus without complications; Z99.2 Dependence on renal dialysis; I25.2 Old myocardial infarction; Z82.49 Family history of ischemic heart disease and other diseases of the circulatory system; Z83.3 Family history of diabetes mellitus; Z80.9 Family history of malignant neoplasm, unspecified; Z87.891 Personal history of nicotine dependence; Z79.82 Long term (current) use of aspirin; Z79.4 Long term (current) use of insulin; Z79.899 Other long term (current) drug therapy; Z88.0 Allergy status to penicillin; Z91.030 Bee allergy status